=== PATIENT | male | born 1940 | race Caucasian/White ===

== ENCOUNTER 2017-08-27 23:29 | Emergency (ER) | payer MEDICARE, BC ==
[~2017-08-27] VITALS: Ht 190.5 cm; Wt 100.7 kg
[~2017-08-27 23:29] MED LIST: ALFUZOSIN HCL10 MG PO; ASPIR 8181 MG PO; CO Q-1010 MG; DIGOXIN125 MCG PO; DOXAZOSIN MESYLA2 MG PO; FINASTERIDE5 MG PO; FISH OIL 1,0001 EAC3 PO; FLECAINIDE ACE100 MG PO; FLECAINIDE ACET50 MG PO; LISINOPRIL10 MG PO; METFORMIN HCL500 MG PO; METOPROLOL TART25 MG PO; PLAVIX75 MG PO; XARELTO20 MG PO; ZYRTEC10 MG PO
--- OUTSIDE RECORDS SUMMARY | 2017-08-27 23:31 | XMS REPORT ---
Author Author [facility] Address Unknown Phone Unavailable Care Team Providers Care Securities Underwriter Name Role Phone ALFONSO CLEMENTS Unavailable Unavailable Problems This patient has no known problems. Allergies, Adverse Reactions, Alerts This patient has no known allergies or adverse reactions. Medications This patient has no known medications. Results Test Description Test Time Test Comments Text Results Atomic Results Result Comments POCT-GLUCOSE METER 2016-08-25 07:31:00 POC-GLUCOSE METER (BEAKER) (test edgu=6819) 170 mg/dL 70-[address] [facility] [address] [facility] [address] CBC (HEMOGRAM ONLY)2016-08-25 05:18:00* Test Item Value Reference Range Comments WHITE BLOOD CELL COUNT (BEAKER) (test ccra=557) 6.5 K/ L 4.0-10.0 RED BLOOD CELL COUNT (BEAKER) (test tdum=100) 4.00 M/ L 4.20-5.80 HEMOGLOBIN (BEAKER) (test orhn=978) 11.5 GM/DL 13.0-16.8 HEMATOCRIT (BEAKER) (test hmjc=553) 36.8 % 40.0-50.0 MEAN CORPUSCULAR VOLUME (BEAKER) (test xjmz=364) 92.0 fL 82.0-98.0 MEAN CORPUSCULAR HEMOGLOBIN (BEAKER) (test fqas=069) 28.8 pg 27.0-33.0 MEAN CORPUSCULAR HEMOGLOBIN CONC (BEAKER) (test pncy=004) 31.3 GM/DL 32.0- 36.0 RED CELL DISTRIBUTION WIDTH (BEAKER) (test frmv=075) 14.1 % 10.3-14.2 PLATELET COUNT (BEAKER) (test gknb=141) 139 K/CU MM 150-430 MEAN PLATELET VOLUME (BEAKER) (test vkch=048) 6.7 fL 6.5-10.5 NUCLEATED RED BLOOD CELLS (BEAKER) (test muuh=205) 0 /100 WBC 0-0 [id number] 05:13:00* Test Item Value Reference Range Comments BLOOD UREA NITROGEN (BEAKER) (test ebzv=751) 18 mg/dL 7-21 [id number] 05:13:00* Test Item Value Reference Range Comments SODIUM (BEAKER) (test dowl=487) 137 meq/L 136-145 POTASSIUM (BEAKER) (test nskq=571) 4.3 meq/L 3.5-5.1 Specimen slightly hemolyzed CHLORIDE (BEAKER) (test bgdv=922) 107 meq/L 98-107 CO2 (BEAKER) (test sfbn=713) 22 meq/L 22-29 [id number] 05:13:00* Test Item Value Reference Range Comments CREATININE (BEAKER) (test mlyt=390) 1.07 mg/dL 0.57-1.25 Specimen slightly hemolyzed EGFR (BEAKER) (test hpfz=5430) 68 mL/min/1.73 sq m ESTIMATED GFR IS NOT ACCURATE CREATININE CLEARANCE IN PREDICTING GLOMERULAR FILTRATION RATE. ESTIMATED GFR IS NOT APPLICABLE FOR DIALYSIS PATIENTS. POCT-GLUCOSE [id number] 21:36:00* Test Item Value Reference Range Comments POC-GLUCOSE METER (BEAKER) (test abbo=8207) 127 mg/dL 70-110 TESTED AT [place] [id number] POCT-GLUCOSE [id number] 13:44:00* Test Item Value Reference Range Comments POC-GLUCOSE METER (BEAKER) (test gznf=7679) 142 mg/dL 70-110 TESTED AT [place] [id number] 11:45:00* Test Item Value Reference Range Comments ACTIVATED CLOTTING TIME (BEAKER) (test zvnr=524) 137 sec TESTED AT [place] [id number] [id number] 10:38:00* Test Item Value Reference Range Comments ACTIVATED CLOTTING TIME (BEAKER) (test dbyn=434) 358 sec TESTED AT [place] [address] [id number] 10:10:00* Test Item Value Reference Range Comments ACTIVATED CLOTTING TIME (BEAKER) (test jdyo=935) 379 sec TESTED AT [address] [address] [id number] 09:56:00* Test Item Value Reference Range Comments ACTIVATED CLOTTING TIME (BEAKER) (test beph=136) 296 sec TESTED AT [address] [address] [id number] 09:37:00* Test Item Value Reference Range Comments ACTIVATED CLOTTING TIME (BEAKER) (test vkzr=814) 296 sec TESTED AT [place] [address] [id number] 09:10:00* Test Item Value Reference Range Comments POC-CREATININE (BEAKER) (test hldt=7344) 1.1 mg/dL 0.6-1.3 TESTED AT [place] [address] POC-EGFR (BEAKER) (test xggm=1658) 65 mL/min/1.73M2 [id number] 08:34:00* Test Item Value Reference Range Comments PARTIAL THROMBOPLASTIN TIME (BEAKER) (test gbwp=049) 59.3 seconds 22.5-36.0 PROTHROMBIN TIME/[id number] 08:32:00* Test Item Value Reference Range Comments PROTIME (BEAKER) (test goke=435) 21.4 seconds 11.7-14.7 INR (BEAKER) (test mbzq=125) 1.9 <=5.9 RECOMMENDED COUMADIN/WARFARIN INR THERAPY RANGESSTANDARD DOSE: 2.0 - 3.0 Includes: PROPHYLAXIS for venous thrombosis, systemic embolization; TREATMENT for venous thrombosis and/or pulmonary embolus.HIGH RISK: Target INR is 2.5-3.5 for patients with mechanical heart valves.BASIC METABOLIC [id number] 08:26: 00* Test Item Value Reference Range Comments SODIUM (BEAKER) (test bxsr=492) 141 meq/L 136-145 POTASSIUM (BEAKER) (test mbkn=116) 4.7 meq/L 3.5-5.1 CHLORIDE (BEAKER) (test xfsa=172) 106 meq/L 98-107 CO2 (BEAKER) (test bewg=488) 28 meq/L 22-29 BLOOD UREA NITROGEN (BEAKER) (test rxli=865) 21 mg/dL 7-21 CREATININE (BEAKER) (test yggo=211) 1.21 mg/dL 0.57-1.25 GLUCOSE RANDOM (BEAKER) (test hplg=422) 118 mg/dL 70-105 CALCIUM (BEAKER) (test erue=109) 8.8 mg/dL 8.4-10.2 EGFR (BEAKER) (test igpf=4475) 59 mL/min/1.73 sq m ESTIMATED GFR IS NOT ACCURATE CREATININE CLEARANCE IN PREDICTING GLOMERULAR FILTRATION RATE. ESTIMATED GFR IS NOT APPLICABLE FOR DIALYSIS PATIENTS. CBC (HEMOGRAM ONLY)2016-08-22 08:13:00* Test Item Value Reference Range Comments WHITE BLOOD CELL COUNT (BEAKER) (test agev=968) 5.3 K/ L 4.0-10.0 RED BLOOD CELL COUNT (BEAKER) (test dmum=521) 4.50 M/ L 4.20-5.80 HEMOGLOBIN (BEAKER) (test osnt=409) 13.1 GM/DL 13.0-16.8 HEMATOCRIT (BEAKER) (test fkph=910) 41.0 % 40.0-50.0 MEAN CORPUSCULAR VOLUME (BEAKER) (test dpsp=335) 91.1 fL 82.0-98.0 MEAN CORPUSCULAR HEMOGLOBIN (BEAKER) (test wkxl=428) 29.0 pg 27.0-33.0 MEAN CORPUSCULAR HEMOGLOBIN CONC (BEAKER) (test jyte=534) 31.9 GM/DL 32.0- 36.0 RED CELL DISTRIBUTION WIDTH (BEAKER) (test zryg=792) 14.1 % 10.3-14.2 PLATELET COUNT (BEAKER) (test aiem=371) 159 K/CU MM 150-430 MEAN PLATELET VOLUME (BEAKER) (test jpkw=583) 6.2 fL 6.5-10.5 NUCLEATED RED BLOOD CELLS (BEAKER) (test bbxv=439) 0 /100 WBC 0-0 0.00
--- OUTSIDE RECORDS SUMMARY | 2017-08-27 23:31 | XMS REPORT | Clinical Summary ---
Author Author [facility] Address Unknown Phone Unavailable Care Team Providers Care Manager Foreign Name Role Phone PCP Unavailable Allergies Active Allergy Reactions Severity Noted Date Comments Hxkhazn-Qdx-Ixz Reductase High 02/10/2016 Inhibitors Codeine 02/15/2016 HALLUCINATIONS Current Medications Prescription Sig. Disp. Refills Start End Date Status Date finasteride (PROSCAR) 5 Take 5 mg by mouth daily. Active mg tablet rivaroxaban (XARELTO) 20 Take by mouth daily. Active mg Tab tablet cetirizine (ZYRTEC) 10 MG Take 10 mg by mouth Active tablet daily. MAGNESIUM CHLORIDE Take by mouth. Active (SLOW-MAG ORAL) CHOLECALCIFEROL, VITAMIN Take by mouth. Active D3, ORAL coenzyme Q10 100 mg Take 100 mg by mouth Active capsule daily. metFORMIN (GLUCOPHAGE) Take 1 tablet (500 mg 1 tablet 0 02/15/20 Active 500 MG tablet total) by mouth 2 (two) 16 times daily with breakfast and dinner. ALFUZOSIN HCL (ALFUZOSIN Take 10 mg by mouth Active ORAL) daily. metoprolol (LOPRESSOR) 25 Take 25 mg by mouth 2 Active MG tablet (two) times daily. dronedarone (MULTAQ) 400 Take 400 mg by mouth 2 Active mg tablet (two) times daily with breakfast and dinner. loratadine (CLARITIN) 10 Take 10 mg by mouth Active mg tablet daily. clopidogrel (PLAVIX) 75 Take 1 tablet (75 mg 30 tablet 11 02/15/20 02/15/20 mg tablet total) by mouth daily. 16 17 furosemide (LASIX) 40 MG Take 1 tablet (40 mg 2 tablet 0 08/25/ tablet total) by mouth daily for 17 17 2 days. Active Problems Problem Noted Date A-fib ([facility]) 08/24/2016 CAD (coronary artery disease), [place] coronary artery 02/10/2016 DM (diabetes mellitus) type II controlled, neurological manifestation ([facility]) 02/10/2016 BPH (benign prostatic hyperplasia) 02/10/2016 HTN (hypertension) 02/10/2016 PAF (paroxysmal atrial fibrillation) ([facility]) 02/10/2016 Hyperlipemia 02/10/2016 Social History Tobacco Use Types Packs/Day Years Used Date Never Smoker Alcohol Use Drinks/Week oz/Week Comments No Sex Assigned at Date Recorded Not on file Last Filed Vital Signs Not on file Plan of Treatment Not on file Results * RHYTHM STRIP - SCAN (09/29/2016 8:40 AM) Only the most recent of 2 results within the time period is included. * CARDIAC CATH REPORT - SCAN (08/26/2016 12:40 PM) * ARRYTHMIA IMPLANT REPORT - SCAN (08/26/2016 12:40 PM) after 08/26/2016
[2017-08-28] MEDS ORDERED: METOPROLOL TARTRATE 50 MG TAB PO ONE
[2017-08-28 00:21] LABS: BASOPHILS % 0.8 % (0.0-1.0); EOSINOPHILS # (AUTO) 0.1 (0.0-0.4); HEMATOCRIT 41.5 % (38.2-49.6); HEMOGLOBIN 13.6 g/dL (14.0-18.0); LYMPHOCYTES # (AUTO) 1.6 (1.0-3.2); LYMPHOCYTES % 32.7 % (18.0-39.1); MEAN CORPUSCULAR HEMOGLOBIN 28.8 pg (28-32); MEAN CORPUSCULAR HGB CONC 32.8 g/dL (31-35); MEAN CORPUSCULAR VOLUME 87.7 fL (81-99); MONOCYTES # (AUTO) 0.4 (0.2-0.8); MONOCYTES % 7.5 % (4.4-11.3); NEUTROPHILS # (AUTO) 2.9 (2.1-6.9); NEUTROPHILS % 57.8 % (38.7-80.0); PLATELET COUNT 161 x10e3/uL (140-360); RED BLOOD COUNT 4.73 x10e6/uL (4.3-5.7); RED CELL DISTRIBUTION WIDTH 14.3 % (11.7-14.4)
[2017-08-28 00:29] LABS: BILIRUBIN,URINE NEGATIVE (NEGATIVE); CLARITY,URINE CLEAR (CLEAR); COLOR,URINE YELLOW (YELLOW); KETONES,URINE NEGATIVE (NEGATIVE); LEUKOCYTE ESTERASE ,URINE NEGATIVE (NEGATIVE); NITRITE,URINE NEGATIVE (NEGATIVE); PROTEIN,URINE DIPSTICK TRACE (NEGATIVE); URINE UROBILINOGEN 0.2 mg/dL (0.2 - 1)
[2017-08-28 00:31] LABS: EPITHELIAL CELLS,URINE FEW /LPF; RBC,URINE 0-5 /HPF (0-5); WBC,URINE (MAN) 0-5 /HPF (0-5)
[2017-08-28 00:38] LABS: ALANINE AMINOTRANSFERASE 22 IU/L (0-55); ALBUMIN/GLOBULIN RATIO 1.3 (0.8-2.0); ALKALINE PHOSPHATASE 76 IU/L (40-150); ANION GAP 13.5 mmol/L (8-16); BLOOD UREA NITROGEN 19 mg/dL (7-26); BUN/CREATININE RATIO 15 (6-25); CALCIUM 9.6 mg/dL (8.4-10.2); CARBON DIOXIDE 30 mmol/L (22-29); CHLORIDE 103 mmol/L (98-107); CREATINE KINASE 197 IU/L (30-200); CREATININE, SERUM 1.25 mg/dL (0.72-1.25); EST GLOMERULAR FILTRATION RATE 56 ML/MIN (60-); GLUCOSE 126 mg/dL (74-118); POTASSIUM 4.5 mmol/L (3.5-5.1); SODIUM 142 mmol/L (136-145)
--- NOTE | 2017-08-28 00:46 | Diagnostic Imaging Report ---
CHEST 2 VIEWS, Technique: CHEST 2 VIEWS Comparison: 06/24/2016 Clinical history: Atrial fibrillation DISCUSSION: Stable left chest wall dual-lead pacer. Scattered metallic fragments overlie the chest. Stable cardiomegaly with tortuous or ectatic aorta. No consolidation or edema. No effusion or pneumothorax. IMPRESSION: No acute abnormality Signed by: Dr Jodee Koroma MD on 08/28/2017 12:42 AM
[2017-08-28 03:22] LABS: CREATINE KINASE 169 IU/L (30-200)
[2017-08-28 04:17] VITALS: BP 158/88
== END 2017-08-28 04:30 | disposition home or self-care (01) ==
LOC: ER 23:29
DX: R00.2 Palpitations (principal); I48.0 Paroxysmal atrial fibrillation
CPT/HCPCS: 36415; 71046; 80053; 81001; 82550; 82553; 84484; 85025; 93005; 99284

== ENCOUNTER → 2017-11-22 | Outpatient (CLI) | payer MEDICARE, BC ==
[~2017-11-22] MED LIST changes: +REGADENOSON 0.4 MG/5 ML SYR IV ONE
--- NOTE | 2017-11-22 15:55 | Cardiology Report ---
DATE OF STUDY: November 22, 2017 NUCLEAR GATED MYOCARDIAL PERFUSION SCAN Nuclear gated myocardial perfusion scan performed as per protocol at nuclear medicine lab at [facility]. The stress test is supervised by Dr. Rajinder Gross. I read only the nuclear part of the stress test. Lexiscan injected 0.4 mg intravenously as stress agent. Myoview injected 10 mCi for resting protocol, 27 mCi for stress protocol. IMPRESSION: Normal gated myocardial perfusion scan. No evidence of ischemia or scar noted. Left ventricular ejection fraction is 45% to 50%. Normal study. Thank you, Dr. Rajinder Gross, for this nuclear medicine interpretation consultation. Job#: [id number]
== END ==
LOC: NM 10:13
PROVIDERS: ATTEND Internal Medicine Cardiovascular Disease
DX: I25.10 Atherosclerotic heart disease of native coronary artery without angina pectoris (principal); R94.31 Abnormal electrocardiogram [ECG] [EKG]
CPT/HCPCS: 78452; 93017; A9502

== ENCOUNTER → 2017-12-04 | Day surgery (SDC) | payer MEDICARE, BC ==
[2017-11-30 11:58] LABS: BASOPHILS # (AUTO) 0.1 (0.0-0.1); BASOPHILS % 0.9 % (0.0-1.0); EOSINOPHILS % 0.6 % (0.0-6.0); HEMATOCRIT 37.6 % (38.2-49.6); HEMOGLOBIN 12.1 g/dL (14.0-18.0); LYMPHOCYTES # (AUTO) 1.3 (1.0-3.2); LYMPHOCYTES % 19.9 % (18.0-39.1); MEAN CORPUSCULAR HEMOGLOBIN 27.9 pg (28-32); MEAN CORPUSCULAR HGB CONC 32.2 g/dL (31-35); MEAN CORPUSCULAR VOLUME 86.6 fL (81-99); MONOCYTES # (AUTO) 0.5 (0.2-0.8); MONOCYTES % 7.5 % (4.4-11.3); NEUTROPHILS # (AUTO) 4.6 (2.1-6.9); NEUTROPHILS % 70.5 % (38.7-80.0); PLATELET COUNT 171 x10e3/uL (140-360); RED BLOOD COUNT 4.34 x10e6/uL (4.3-5.7)
[2017-11-30 12:22] LABS: INR 1.94; PROTHROMBIN TIME 20.8 seconds (11.9-14.5)
[2017-11-30 12:23] LABS: PARTIAL THROMBOPLASTIN TIME 51.4 seconds (23.8-35.5)
[2017-11-30 12:31] LABS: ANION GAP 12.6 mmol/L (8-16); CALCIUM 9.3 mg/dL (8.4-10.2); CHOL/HDL RATIO 3.9 (3.9-4.7); CREATININE, SERUM 1.37 mg/dL (0.72-1.25); POTASSIUM 4.6 mmol/L (3.5-5.1)
[2017-12-04] VITALS (12 sets, daily range): BP systolic 130–178; BP diastolic 89–119
[~2017-12-04] VITALS: Ht 190.5 cm; Wt 99.8 kg
[~2017-12-04] MED LIST changes: +FENTANYL CITRATE/PF 100MCG/2 ML INJ ONE; +HEPARIN SOD/SOD CHLORIDE 2,000 ML ONE; +IOPAMIDOL 370 MG/ML 200 ML INFUS..BTL INJ ONE; +LABETALOL HCL 20 ML ONE; +LIDOCAINE HCL 2% LOCAL 20 ML VIAL ONE; +MIDAZOLAM HCL 2 MG/2 ML VIAL ONE; -REGADENOSON 0.4 MG/5 ML SYR IV ONE; +SODIUM CHLORIDE 0.9% 1000ML 1,000 ML ONE
[2017-12-04 10:31] LABS: INR 1.27; PROTHROMBIN TIME 14.9 seconds (11.9-14.5)
[2017-12-04 10:35] LABS: ANION GAP 13.5 mmol/L (8-16); CALCIUM 9.3 mg/dL (8.4-10.2); CREATININE, SERUM 1.31 mg/dL (0.72-1.25); POTASSIUM 4.5 mmol/L (3.5-5.1)
--- NOTE | 2017-12-04 18:54 | Operative Report ---
DATE OF PROCEDURE: December 04, 2017 PREOPERATIVE DIAGNOSES 1. Coronary artery disease with previous stenting of the left anterior descending branch and abnormal nuclear stress test. 2. Chronic atrial fibrillation considered for redo ablation. 3. Chronic kidney disease. 4. Diabetes mellitus. 5. Hypertensive cardiovascular disease. PROCEDURES 1. Cardiac catheterization including selective coronary angiography and left ventricular angiogram. 2. Left groin angiogram and closure of the left femoral artery with Angio-Seal, model Evolution. ANESTHESIA: Local anesthetic to the left groin area and moderate sedation with 1 mg of Versed and 25 mcg of fentanyl on 2 occasions. DESCRIPTION OF PROCEDURE: After usual prepping and draping, the left inguinal area was infiltrated with local lidocaine. Under modified Seldinger technique, a 6-Montenegrin arterial sheath was placed in the left femoral artery and selective coronary angiography was performed by using modified Андрей catheters. A 6-Montenegrin angled pigtail catheter was utilized for recording of hemodynamics and left ventricular angiogram in the 30 degree HECK projection. After completion and review of the diagnostic cardiac catheterization and removal of the pigtail catheter, angiogram of the left inguinal area was performed in the left anterior oblique position prior to closure of the left femoral artery with Angio-Seal. At the beginning of the procedure, the patient also had puncture of the left femoral vein and a guidewire was inserted and left in place throughout the procedure. This was then removed the end of the procedure and manual pressure was applied until hemostasis was achieved. Dressing was then applied and the patient returned to the observation area in stable condition. There were no complications. There was no blood loss. The procedure was well tolerated. No intervention was performed. This information was related to the patient and the patient's family. He will resume his metformin and Xarelto on the 05 of December. However, because of the recent observation of some mild chronic kidney disease stage 2B, his Xarelto will be reduced from 20 mg to 15 mg from now on. The patient is scheduled for SUZETTE and redo ablation of his atrial fibrillation days at [facility] by Dr. Brock. Job#: [id number]
== END | disposition home or self-care (01) ==
LOC: CATH LAB 10:01
PROVIDERS: ATTEND Internal Medicine Cardiovascular Disease
DX: I25.10 Atherosclerotic heart disease of native coronary artery without angina pectoris (principal); Z95.5 Presence of coronary angioplasty implant and graft; R94.39 Abnormal result of other cardiovascular function study; I48.2 Chronic atrial fibrillation; E11.22 Type 2 diabetes mellitus with diabetic chronic kidney disease; N40.0 Benign prostatic hyperplasia without lower urinary tract symptoms; I12.9 Hypertensive chronic kidney disease with stage 1 through stage 4 chronic kidney disease, or unspecified chronic kidney disease; N18.2 Chronic kidney disease, stage 2 (mild); Z88.6 Allergy status to analgesic agent; Z88.8 Allergy status to other drugs, medicaments and biological substances; Z01.812 Encounter for preprocedural laboratory examination; Z79.84 Long term (current) use of oral hypoglycemic drugs; Z79.02 Long term (current) use of antithrombotics/antiplatelets
CPT/HCPCS: 36415 ×2; 80048 ×2; 80061; 85025; 85610 ×2; 85730; 93458; J2001; J2250; J3490; J7030; Q9967

== ENCOUNTER 2017-12-17 07:24 | Emergency (ER) | payer MEDICARE, BC ==
[~2017-12-17] VITALS: Ht 190.5 cm; Wt 99.8 kg
[~2017-12-17 07:24] MED LIST changes: -FENTANYL CITRATE/PF 100MCG/2 ML INJ ONE; -HEPARIN SOD/SOD CHLORIDE 2,000 ML ONE; -IOPAMIDOL 370 MG/ML 200 ML INFUS..BTL INJ ONE; -LABETALOL HCL 20 ML ONE; -LIDOCAINE HCL 2% LOCAL 20 ML VIAL ONE; -MIDAZOLAM HCL 2 MG/2 ML VIAL ONE; -SODIUM CHLORIDE 0.9% 1000ML 1,000 ML ONE
[2017-12-17 07:54] LABS: BASOPHILS % 0.5 % (0.0-1.0); EOSINOPHILS % 0.5 % (0.0-6.0); HEMATOCRIT 33.7 % (38.2-49.6); HEMOGLOBIN 10.8 g/dL (14.0-18.0); LYMPHOCYTES # (AUTO) 0.5 (1.0-3.2); LYMPHOCYTES % 7.9 % (18.0-39.1); MEAN CORPUSCULAR HEMOGLOBIN 27.5 pg (28-32); MEAN CORPUSCULAR VOLUME 85.8 fL (81-99); MONOCYTES # (AUTO) 0.4 (0.2-0.8); MONOCYTES % 6.9 % (4.4-11.3); NEUTROPHILS # (AUTO) 5.2 (2.1-6.9); NEUTROPHILS % 83.7 % (38.7-80.0); PLATELET COUNT 161 x10e3/uL (140-360); RED BLOOD COUNT 3.93 x10e6/uL (4.3-5.7); RED CELL DISTRIBUTION WIDTH 14.5 % (11.7-14.4)
[2017-12-17] MEDS ORDERED: CLONIDINE HCL0.1 MG PO (07:57)
[2017-12-17] MEDS ORDERED: MULTAQ400 MG PO (07:57)
[2017-12-17] MEDS ORDERED: CITALOPRAM HBR20 MG PO (07:57)
[2017-12-17] MEDS ORDERED: CLONAZEPAM0.5 M1 PO (07:57)
[2017-12-17] MEDS ORDERED: XARELTO20 MG PO (07:57)
[2017-12-17] MEDS ORDERED: LISINOPRIL10 MG PO (07:57)
[2017-12-17] MEDS ORDERED: DILTIAZEM 24HR180 MG PEG (07:57)
[2017-12-17] MEDS ORDERED: ISOSORBIDE MONO20 MG PO (07:57)
[2017-12-17] MEDS ORDERED: CLONIDINE HCL 0.1 MG TAB PO ONE (08:00)
[2017-12-17 08:07] LABS: ALANINE AMINOTRANSFERASE 38 IU/L (0-55); ALBUMIN 3.8 g/dL (3.5-5.0); ALBUMIN/GLOBULIN RATIO 1.5 (0.8-2.0); ALKALINE PHOSPHATASE 63 IU/L (40-150); AMYLASE 99 U/L (25-125); ANION GAP 12.5 mmol/L (8-16); BLOOD UREA NITROGEN 15 mg/dL (7-26); BUN/CREATININE RATIO 14 (6-25); CALCIUM 9.1 mg/dL (8.4-10.2); CARBON DIOXIDE 28 mmol/L (22-29); CHLORIDE 104 mmol/L (98-107); CREATINE KINASE 557 IU/L (30-200); CREATININE, SERUM 1.11 mg/dL (0.72-1.25); EST GLOMERULAR FILTRATION RATE > 60 ML/MIN (60-); GLUCOSE 122 mg/dL (74-118); LIPASE 109 U/L (8-78); POTASSIUM 4.5 mmol/L (3.5-5.1); SODIUM 140 mmol/L (136-145)
[2017-12-17 08:17] LABS: BILIRUBIN,URINE NEGATIVE (NEGATIVE); CLARITY,URINE CLEAR (CLEAR); COLOR,URINE YELLOW (YELLOW); KETONES,URINE NEGATIVE (NEGATIVE); LEUKOCYTE ESTERASE ,URINE NEGATIVE (NEGATIVE); NITRITE,URINE NEGATIVE (NEGATIVE); PROTEIN,URINE DIPSTICK NEGATIVE (NEGATIVE); URINE UROBILINOGEN 0.2 mg/dL (0.2 - 1)
[2017-12-17 08:18] LABS: RBC,URINE 0-5 /HPF (0-5); WBC,URINE (MAN) 0-5 /HPF (0-5)
[2017-12-17 08:19] LABS: BACTERIA,URINE RARE /HPF; EPITHELIAL CELLS,URINE RARE /LPF
--- NOTE | 2017-12-17 08:38 | Diagnostic Imaging Report ---
EXAMINATION: CHEST 2 VIEWS INDICATION: \S\epigastric pain \S\[id number] \S\0801 COMPARISON: 08/28/2017 FINDINGS: PA and lateral views TUBES and LINES: Dual-lead left chest wall cardiac device is stable. LUNGS: Lungs are well inflated. Lungs are clear. There is no evidence of pneumonia or pulmonary edema. PLEURA: No pleural effusion or pneumothorax. HEART AND MEDIASTINUM: The cardiomediastinal silhouette is unremarkable. BONES AND SOFT TISSUES: No acute osseous lesion. Again scattered metallic fragments. UPPER ABDOMEN: No free air under the diaphragm. IMPRESSION: No acute thoracic abnormality. Signed by: Dr. Jeet Herrera MD on 12/17/2017 8:35 AM
[2017-12-17] MEDS ORDERED: DONNATAL/LIDOCAINE/MAALOX 30 ML SUSP PO NR (09:30)
[2017-12-17] MEDS ORDERED: LIDOCAINE VISC 2% SOLN 15 ML UDC ONE (09:41)
[2017-12-17] MEDS ORDERED: BELLADONNA ALK/PHENOBARBITAL 5 ML UDC ONE (09:42)
[2017-12-17] MEDS ORDERED: MAGNESIUM/ALUMINUM/SIMETHICONE 30 ML UDC ONE (09:42)
[2017-12-17] MEDS ORDERED: HYDRALAZINE HCL 20 MG/ML VIAL IV NR (10:25)
[2017-12-17 11:26] VITALS: BP 162/83
== END 2017-12-17 11:53 | disposition home or self-care (01) ==
LOC: ER 07:24
DX: R10.13 Epigastric pain (principal); I10 Essential (primary) hypertension
CPT/HCPCS: 36415; 71046; 80053; 81001; 82150; 82550; 82553; 83690; 84484; 85025; 99284; J0360

== ENCOUNTER → 2018-01-23 | Outpatient (CLI) | payer MEDICARE, BC ==
[~2018-01-23] MED LIST changes: +CITALOPRAM HBR20 MG PO; +CLONAZEPAM0.5 M1 PO; +CLONIDINE HCL0.1 MG PO; +DILTIAZEM 24HR180 MG PEG; +ISOSORBIDE MONO20 MG PO; +MULTAQ400 MG PO
== END ==
LOC: RAD 12:45
PROVIDERS: ATTEND Internal Medicine Cardiovascular Disease
DX: I48.2 Chronic atrial fibrillation (principal); R94.31 Abnormal electrocardiogram [ECG] [EKG]
CPT/HCPCS: 93306

== ENCOUNTER 2018-01-27 17:52 | Emergency (ER) | payer MEDICARE, BC ==
[~2018-01-27] VITALS: Ht 190.5 cm; Wt 99.8 kg
[~2018-01-27 17:52] MED LIST changes: -DILTIAZEM 24HR180 MG PEG; +DILTIAZEM 24HR180 MG PO
[2018-01-27 18:47] LABS: BASOPHILS % 0.5 % (0.0-1.0); EOSINOPHILS % 0.4 % (0.0-6.0); HEMATOCRIT 36.6 % (38.2-49.6); HEMOGLOBIN 11.8 g/dL (14.0-18.0); LYMPHOCYTES # (AUTO) 0.9 (1.0-3.2); LYMPHOCYTES % 15.1 % (18.0-39.1); MEAN CORPUSCULAR HEMOGLOBIN 27.4 pg (28-32); MEAN CORPUSCULAR HGB CONC 32.2 g/dL (31-35); MEAN CORPUSCULAR VOLUME 84.9 fL (81-99); MONOCYTES # (AUTO) 0.5 (0.2-0.8); MONOCYTES % 8.1 % (4.4-11.3); NEUTROPHILS # (AUTO) 4.3 (2.1-6.9); NEUTROPHILS % 75.5 % (38.7-80.0); PLATELET COUNT 222 x10e3/uL (140-360); RED BLOOD COUNT 4.31 x10e6/uL (4.3-5.7); RED CELL DISTRIBUTION WIDTH 15.3 % (11.7-14.4)
[2018-01-27 19:01] LABS: ALANINE AMINOTRANSFERASE 38 IU/L (0-55); ALBUMIN 3.8 g/dL (3.5-5.0); ALBUMIN/GLOBULIN RATIO 1.4 (0.8-2.0); ALKALINE PHOSPHATASE 63 IU/L (40-150); ANION GAP 15.6 mmol/L (8-16); BLOOD UREA NITROGEN 16 mg/dL (7-26); BUN/CREATININE RATIO 12 (6-25); CALCIUM 8.9 mg/dL (8.4-10.2); CARBON DIOXIDE 25 mmol/L (22-29); CHLORIDE 100 mmol/L (98-107); CREATINE KINASE 159 IU/L (30-200); CREATININE, SERUM 1.32 mg/dL (0.72-1.25); EST GLOMERULAR FILTRATION RATE 53 ML/MIN (60-); GLUCOSE 117 mg/dL (74-118); LIPASE 147 U/L (8-78); POTASSIUM 4.6 mmol/L (3.5-5.1); SODIUM 136 mmol/L (136-145)
[2018-01-27] MEDS ORDERED: SODIUM CHLORIDE 0.9% 500ML 500 ML IV ONE (20:15)
[2018-01-27 20:18] LABS: BILIRUBIN,URINE NEGATIVE (NEGATIVE); CLARITY,URINE CLEAR (CLEAR); COLOR,URINE YELLOW (YELLOW); KETONES,URINE NEGATIVE (NEGATIVE); LEUKOCYTE ESTERASE ,URINE NEGATIVE (NEGATIVE); NITRITE,URINE NEGATIVE (NEGATIVE); PROTEIN,URINE DIPSTICK NEGATIVE (NEGATIVE); URINE UROBILINOGEN 0.2 mg/dL (0.2 - 1)
[2018-01-27 20:41] LABS: BACTERIA,URINE RARE /HPF; EPITHELIAL CELLS,URINE RARE /LPF
[2018-01-27] MEDS ORDERED: IOPAMIDOL 370 MG/ML 200 ML INFUS..BTL INJ ONE (20:44)
[2018-01-27] MEDS ORDERED: SODIUM CHLORIDE 0.9% 50ML 50 ML ONE (20:44)
--- NOTE | 2018-01-27 21:44 | Diagnostic Imaging Report ---
EXAM: US GALLBLADDER DATE: 01/27/2018 12:00 AM INDICATION: \S\abdominal pain, history of cholelithiasis \S\[id number] \S\0255, COMPARISON: None TECHNIQUE: Transverse and longitudinal swain scale and color doppler sonographic images of the upper abdomen were obtained. FINDINGS: LIVER 14.1 cm in the right midclavicular line. Increased echogenicity, normal contour, no masses. GALLBLADDER Cholelithiasis without wall-thickening or pericholecystic fluid. Negative sonographic Shelton's sign. BILE DUCTS No intra nor extra-hepatic biliary dilation. Common bile duct measures 0.5 cm PANCREAS: Not well visualized due to overlying bowel gas RIGHT KIDNEY: 11.3 cm Echogenicity: Normal Collecting System: No hydronephrosis Stones: None Cyst/Mass: 2 right renal cysts are seen measuring 1.1 x 1.1 x 1.2 cm and 1.1 x 0.9 1.3 cm. Hypoechoic area in the right mid kidney measures 3.3 x 2.6 x 2.6 cm. VESSELS: Aorta: Poorly visualized due to overlying bowel gas Inferior Vena Cava: Poorly visualized due to bowel gas Main Portal Vein: hepatopetal flow. FREE FLUID: None IMPRESSION: 1. Hepatic steatosis. 2. Cholelithiasis without evidence of acute cholecystitis. 3. Hypoechoic area in the right mid kidney, favored to reflect a lobulation or column of Michele. Consider nonemergent follow up CT without and with IV contrast (renal mass protocol) to exclude renal mass/lesion. Signed by: Dr Jodee Koroma MD on 01/27/2018 9:42 PM
[2018-01-27] MEDS ORDERED: SODIUM CHLORIDE 0.9% 250ML 250 ML IV ONE (22:00)
--- NOTE | 2018-01-27 22:29 | Diagnostic Imaging Report ---
EXAM: CT ABDOMEN/PELVIS W DATE: 01/27/2018 6:30 PM INDICATION: Abdominal pain COMPARISON: None TECHNIQUE: The abdomen and pelvis were scanned using a multidetector helical scanner. Coronal and sagittal reformations were obtained. CT low dose techniques were utilized, as applicable. IV Contrast: 100 ml Isovue 300/370 FINDINGS: LOWER THORAX: No consolidations. Partially imaged cardiomegaly pacing leads. LIVER/BILIARY: No masses. No ductal dilatation. GALLBLADDER: Cholelithiasis. No pericholecystic fluid. SPLEEN: Unremarkable PANCREAS: Unremarkable ADRENALS: No nodules KIDNEYS: Subcentimeter too small to characterize bilateral renal hypodensities, but likely cysts. No hydronephrosis. GI TRACT: No wall thickening or evidence of obstruction. No evidence of appendicitis. Diverticulosis. VESSELS: Mild atherosclerotic changes PERITONEUM/RETROPERITONEUM: No free air or fluid LYMPH NODES: No lymphadenopathy REPRODUCTIVE ORGANS/BLADDER: Prostatomegaly, 6 cm. Mild circumferential bladder wall thickening likely related to chronic outlet obstruction. SOFT TISSUES: Small bilateral fat-containing inguinal hernias. Punctate radiopaque densities are seen within the anterior abdominal wall soft tissues. BONES: No suspicious bone lesions. IMPRESSION: 1. No acute abnormality in the abdomen or pelvis. 2. Cholelithiasis. Signed by: Dr Jodee Koroma MD on 01/27/2018 10:27 PM
[2018-01-27] MEDS ORDERED: METOPROLOL SUCC50 MG PO (23:15)
== END 2018-01-27 23:51 | disposition home or self-care (01) ==
LOC: ER 17:52
DX: R10.33 Periumbilical pain (principal); R11.2 Nausea with vomiting, unspecified; K80.20 Calculus of gallbladder without cholecystitis without obstruction; I10 Essential (primary) hypertension; E11.9 Type 2 diabetes mellitus without complications; I25.10 Atherosclerotic heart disease of native coronary artery without angina pectoris
CPT/HCPCS: 36415; 74177; 76705; 80053; 81001; 82550; 82553; 83605; 83690; 84484; 85025; 87040; 93005; 99284; J7040; J7050; Q9967

== ENCOUNTER 2018-01-29 22:58 | Inpatient (IN) | payer MEDICARE, BC ==
[~2018-01-29] VITALS: Ht 193 cm; Wt 102.2 kg
[~2018-01-29 22:58] MED LIST changes: +METOPROLOL SUCC50 MG PO
[2018-01-29] MEDS ORDERED: MORPHINE SULFATE 2 MG/ML SYR IV STA (23:03)
[2018-01-29] MEDS ORDERED: ONDANSETRON HCL INJ 2 MG/ML VIAL IV STA (23:03)
[2018-01-29] MEDS ORDERED: SODIUM CHLORIDE 0.9% 1000ML 1,000 ML IV ONE (23:15)
[2018-01-29] MEDS ORDERED: DICYCLOMINE HCL 20 MG/2 ML VIAL IM ONE (23:15)
[2018-01-29 23:54] LABS: BASOPHILS % 0.6 % (0.0-1.0); EOSINOPHILS % 0.2 % (0.0-6.0); HEMATOCRIT 37.6 % (38.2-49.6); LYMPHOCYTES # (AUTO) 0.8 (1.0-3.2); LYMPHOCYTES % 11.8 % (18.0-39.1); MEAN CORPUSCULAR HEMOGLOBIN 27.3 pg (28-32); MEAN CORPUSCULAR HGB CONC 31.9 g/dL (31-35); MEAN CORPUSCULAR VOLUME 85.6 fL (81-99); MONOCYTES # (AUTO) 0.5 (0.2-0.8); MONOCYTES % 7.7 % (4.4-11.3); NEUTROPHILS # (AUTO) 5.2 (2.1-6.9); NEUTROPHILS % 79.2 % (38.7-80.0); PLATELET COUNT 196 x10e3/uL (140-360); RED BLOOD COUNT 4.39 x10e6/uL (4.3-5.7); RED CELL DISTRIBUTION WIDTH 15.1 % (11.7-14.4)
[2018-01-30 00:06] LABS: PROTHROMBIN TIME 24.2 seconds (11.9-14.5)
[2018-01-30 00:16] LABS: ALBUMIN 4.2 g/dL (3.5-5.0); ALBUMIN/GLOBULIN RATIO 1.8 (0.8-2.0); ANION GAP 16.3 mmol/L (8-16); CALCIUM 9.3 mg/dL (8.4-10.2); CREATININE, SERUM 1.4 mg/dL (0.72-1.25); POTASSIUM 4.3 mmol/L (3.5-5.1)
[2018-01-30 00:37] LABS: CREATINE KINASE 270 IU/L (30-200)
[2018-01-30] MEDS ORDERED: DEXTROSE 50% SYRINGE 50 ML IV PRN (01:15)
[2018-01-30] MEDS ORDERED: NON-FORMULARY MEDICATION (Clonazepam 0.5 MG) PO PRN (01:15)
[2018-01-30] MEDS ORDERED: MORPHINE SULFATE 2 MG/ML SYR IV PRN (01:15)
[2018-01-30] MEDS ORDERED: CEFOXITIN 1GM/ DEXTROSE 50ML ML IV SCH (01:15)
[2018-01-30] MEDS ORDERED: METRONIDAZOLE 500MG/NS 100ML 100 ML IV SCH (01:15)
[2018-01-30] MEDS ORDERED: DILTIAZEM HCL 180 MG CAP ER PO PRN ×2 (01:15→14:45)
[2018-01-30] MEDS ORDERED: LISINOPRIL 10 MG TAB PO PRN (01:15)
[2018-01-30] MEDS: SODIUM CHLORIDE 0.9% 1000ML 1,000 ML IV SCH ×2 (01:57→14:55)
[2018-01-30] MEDS: CLONIDINE HCL 0.1 MG TAB PO PRN (02:00)
[2018-01-30 02:15] VITALS: BP 150/114
[2018-01-30] MEDS: ONDANSETRON HCL INJ 2 MG/ML VIAL IV PRN ×3 (02:50→14:45)
[2018-01-30] MEDS ORDERED: CEFOXITIN SOD 1 GM VIAL ONE (03:22)
[2018-01-30] MEDS ORDERED: SODIUM CHLORIDE 0.9% 50ML 50 ML ONE (03:37)
[2018-01-30 04:00] VITALS: BP 170/113
[2018-01-30 07:46] VITALS: BP 182/102
[2018-01-30] MEDS: INSULIN REGULAR, HUMAN 100 UNIT/1 ML 3ML VIAL SQ SCH ×4 (08:00→20:53)
[2018-01-30] MEDS: HYDROMORPHONE 2MG/ML 2 MG/ML ML IV PRN (08:05)
[2018-01-30] MEDS: METRONIDAZOLE 500MG/NS 100ML 100 ML IV SCH ×3 (08:05→20:52)
[2018-01-30] MEDS: HYDRALAZINE HCL 20 MG/ML VIAL IV PRN (08:05)
[2018-01-30 08:37] LABS: CREATINE KINASE MB 4.4 ng/mL (0-5.0)
--- NOTE | 2018-01-30 08:39 | Consultation ---
DATE OF CONSULTATION: January 30, 2018 UROLOGY CONSULTATION CHIEF UROLOGIC COMPLAINT/REASON FOR CONSULTATION: BPH. HISTORY OF PRESENT ILLNESS: Mr. Elvis Medellin is a 77-year-old male patient of Dr. Rene Riley. He has seen multiple urologists in the past including Janes Obrien. He has had a longstanding history of elevated PSA, status post multiple prostate biopsies and known BPH. He has mostly irritated systems consisting of frequency and nocturia 2 to 3 times per night. He has occasional incomplete emptying. Denied urinary incontinence. Denied dysuria. Denied hematuria. He was admitted to the hospital for right upper quadrant abdominal pain, sharp, severe for 5 days with a history known of gallstones. PAST MEDICAL HISTORY: Hypertension, atrial fibrillation, status post ablation, diabetes mellitus, status post exploratory laparotomy for abdominal pain/tumor/small bowel obstruction, status post PCI, status post pacemaker AICD, status post prostate biopsy. MEDICATIONS: Plavix and Xarelto. ALLERGIES: NKDA. SOCIAL HISTORY: Denied smoking. No drinking. FAMILY HISTORY: No urologic stones or malignancies. REVIEW OF SYSTEMS: Noncontributory other than problems mentioned above for 12-point systems. EXAMINATION GENERAL: Elderly male, in no acute distress. VITALS: Temperature 96.3, pulse 93, respirations 20, blood pressure 170/103. HEENT: Sclerae anicteric. NECK: Supple. BACK: Without costovertebral angle tenderness bilaterally. ABDOMEN: Soft, nontender, nondistended. No palpable mass. No palpable hernias. No palpable adenopathy. : Normal external genitalia. EXTREMITIES: Without edema. SKIN: Intact. Normal color. PERTINENT LABORATORY DATA: CT scan revealing gallstones, BPH. CBC is normal except for hemoglobin of 12. Chem-16 was normal except for a sodium of 132, chloride of 96. A PTT of 24, PTT of 64, and INR of 2.0. IMPRESSIONS 1. Elevated prostate specific antigen. 2. BPH with obstructive symptoms. 3. Coagulopathy, medically induced. 4. Malignant hypertension. 5. Right upper quadrant abdominal pain, likely from gallstones. 6. Nocturia and frequency. PLAN: Urinary ray, the patient has multiple urologists and wishes to continue care with Dr. Riley . Neurologically, he appears to be voiding well. As the patient is coagulopathic, maybe induced by Plavix and Xarelto. Will not place a Leos catheter unless the patient is in natali retention, we are going to deal, or needs bladder drainage. The patient's elevated PSA is biopsies and we are following this. I agree with this plan of management and the patient has mild hypertension. This could be secondary to pain. Will defer to primary service. Await Dr. Dewey's evaluation of gallstones. Thank you for allowing us to participate in the care of your patient. Will be happy to follow along with you as needed. Job#: [id number] CQ cc:MD ANGELIKA LOZANO MD DR RICHARD GOLDFARB
[2018-01-30] MEDS ORDERED: METOPROLOL SUCCINATE 50 MG TAB XL PO SCH ×2 (09:00→21:00)
[2018-01-30] MEDS: HEPARIN SOD (PORCINE) 5,000 UNIT/ML VIAL SC SCH ×2 (10:00→21:18)
[2018-01-30 11:17] VITALS: BP 137/87
[2018-01-30] MEDS: CEFOXITIN SOD 1 GM VIAL IV SCH ×2 (13:03→20:52)
[2018-01-30] MEDS ORDERED: HYDROCODONE/APAP 5MG-325MG TAB PO PRN (14:30)
[2018-01-30] MEDS ORDERED: CLONAZEPAM 0.5 MG TAB PO PRN (14:45)
[2018-01-30 15:17] LABS: BILIRUBIN,URINE NEGATIVE (NEGATIVE); CLARITY,URINE CLEAR (CLEAR); COLOR,URINE YELLOW (YELLOW); KETONES,URINE NEGATIVE (NEGATIVE); LEUKOCYTE ESTERASE ,URINE NEGATIVE (NEGATIVE); NITRITE,URINE NEGATIVE (NEGATIVE); PROTEIN,URINE DIPSTICK NEGATIVE (NEGATIVE); URINE UROBILINOGEN 0.2 mg/dL (0.2 - 1)
[2018-01-30 15:20] VITALS: BP 158/92
[2018-01-30 15:27] LABS: EPITHELIAL CELLS,URINE RARE /LPF
[2018-01-30 16:47] LABS: CREATINE KINASE MB 3.8 ng/mL (0-5.0)
[2018-01-30] MEDS: HYDROCODONE/APAP 5MG-325MG TAB PO PRN ×2 (18:44→23:40)
[2018-01-30 20:00] VITALS: BP 156/97
[2018-01-30] MEDS: FINASTERIDE 5 MG TAB PO SCH (20:52)
[2018-01-31] VITALS (8 sets, daily range): BP systolic 153–184; BP diastolic 91–118
--- NOTE | 2018-01-31 01:43 | Consultation ---
DATE OF CONSULTATION: January 30, 2018 Patient was admitted on the [address] Dodge and seen in consultation on the 30 of January. HISTORY: This 77-year-old patient was kindly referred by Dr. Dodge for cardiovascular evaluation and clearance for surgery. The patient stated that he was seen in the emergency room about 3 days ago complaining of abdominal pain. He was found to have gallstones, and after he was feeling better within 6 or 7 hours under observation in the emergency room, the patient was discharged; however, he returned with worsening of the pain, which he described more in the center of his stomach, but also more on the right upper quadrant area. The patient also has been suffering from nausea, he denied any vomitus, and he denied any hematemesis or melena. The patient is now considered for cholecystectomy by Dr. Matheus Dewey. He stated that he has not taken any Plavix since the 28 of January and his Xarelto also has been discontinued, and at the present time the patient has been given heparin 5000 units subcu every 12 hours because of chronic atrial fibrillation while awaiting the operation. PAST HISTORY: Reveals that he has coronary artery disease, coronary stenting of the LAD. He also has hypertensive cardiovascular disease and chronic atrial fibrillation. The patient had redo ablation procedure which, however, was only successful for about 2 weeks and the patient returned to his chronic atrial fibrillation with at times rapid ventricular rate requiring high dose of metoprolol for control. The patient also has permanent pacemaker because of imer-tachy arrhythmia. The patient also suffers from diabetic neuropathy, hyperlipidemia, allergies, benign prostatic hypertrophy. He also had TIAs, intentional tremor, degenerative joint disease, and chronic kidney disease. ALLERGIES: PATIENT COULD NOT TOLERATE LOVASTATIN, AMLODIPINE, AND CODEINE. SOCIAL HISTORY: Negative. FAMILY HISTORY: Noncontributory. REVIEW OF SYSTEMS: The remainder of systems reviewed, revealed patient denies any headache or sore throat. Patient denies any cough or sputum production. The patient denies any leg swelling. He is able to move all extremities normally. PHYSICAL EXAMINATION: VITAL SIGNS: Reveals a blood pressure 130/60. NECK: Carotid pulses are present. CHEST: Clear to auscultation. CARDIOVASCULAR SYSTEM: There is a normal apical impulse. The rhythm is irregularly irregular with rate of 96 per minute. There is no S3. There is no rub. ABDOMEN: Soft. There is tenderness in the upper abdomen, more on the right side. There is no rebound, there is no guarding. EXTREMITIES: Pulses are present. There is no peripheral edema. NEUROLOGIC: Does not reveal any motor defects. IMPRESSION: 1. Hypertensive and coronary atherosclerotic heart disease with history of coronary stenting. 2. Sick sinus syndrome with atrial fibrillation and unsuccessful redo ablation procedure. 3. Permanent pacemaker. 4. Chronic kidney disease. 5. Diabetes mellitus. I agree that the patient should undergo a cholecystectomy and we will monitor patient's cardiac rhythm and anticoagulation to get him prepared for the surgical procedure. Thank you very much for letting me see this very nice patient. Job#: [id number]
[2018-01-31] MEDS: METRONIDAZOLE 500MG/NS 100ML 100 ML IV SCH ×4 (03:20→19:39)
[2018-01-31] MEDS: HYDROCODONE/APAP 5MG-325MG TAB PO PRN ×3 (03:43→12:10)
[2018-01-31] MEDS: CLONIDINE HCL 0.1 MG TAB PO PRN ×2 (03:59→16:11)
[2018-01-31] MEDS: CEFOXITIN SOD 1 GM VIAL IV SCH ×3 (04:31→19:39)
[2018-01-31] MEDS: SODIUM CHLORIDE 0.9% 1000ML 1,000 ML IV SCH (05:19)
[2018-01-31 05:46] LABS: BASOPHILS % 0.5 % (0.0-1.0); EOSINOPHILS % 0.7 % (0.0-6.0); HEMATOCRIT 35.1 % (38.2-49.6); HEMOGLOBIN 11.2 g/dL (14.0-18.0); LYMPHOCYTES # (AUTO) 0.7 (1.0-3.2); LYMPHOCYTES % 15.8 % (18.0-39.1); MEAN CORPUSCULAR HEMOGLOBIN 27.3 pg (28-32); MEAN CORPUSCULAR HGB CONC 31.9 g/dL (31-35); MEAN CORPUSCULAR VOLUME 85.4 fL (81-99); MONOCYTES # (AUTO) 0.5 (0.2-0.8); MONOCYTES % 10.9 % (4.4-11.3); NEUTROPHILS # (AUTO) 3.2 (2.1-6.9); NEUTROPHILS % 71.6 % (38.7-80.0); PLATELET COUNT 165 x10e3/uL (140-360); RED BLOOD COUNT 4.11 x10e6/uL (4.3-5.7)
[2018-01-31 06:06] LABS: ALBUMIN 3.7 g/dL (3.5-5.0); ALBUMIN/GLOBULIN RATIO 1.8 (0.8-2.0); ANION GAP 12.8 mmol/L (8-16); CALCIUM 8.6 mg/dL (8.4-10.2); CREATININE, SERUM 1.37 mg/dL (0.72-1.25); POTASSIUM 4.8 mmol/L (3.5-5.1)
[2018-01-31] MEDS: HYDRALAZINE HCL 20 MG/ML VIAL IV PRN (07:00)
[2018-01-31] MEDS: INSULIN REGULAR, HUMAN 100 UNIT/1 ML 3ML VIAL SQ SCH ×4 (07:30→21:15)
[2018-01-31] MEDS ORDERED: LOSARTAN POTASSIUM 100 MG TAB PO SCH (09:00)
[2018-01-31] MEDS: LISINOPRIL 20 MG TAB PO SCH (09:10)
[2018-01-31] MEDS: METOPROLOL SUCCINATE 50 MG TAB XL PO SCH ×2 (09:11→21:17)
[2018-01-31] MEDS: HEPARIN SOD (PORCINE) 5,000 UNIT/ML VIAL SC SCH (09:12)
[2018-01-31] MEDS: HYDROMORPHONE 2MG/ML 2 MG/ML ML IV PRN ×2 (09:30→12:56)
[2018-01-31] MEDS: ONDANSETRON HCL INJ 2 MG/ML VIAL IV PRN (09:30)
[2018-01-31] MEDS ORDERED: SUCRALFATE 1 GM TAB PO ONE (13:15)
[2018-01-31] MEDS ORDERED: HYDROMORPHONE 1MG/1ML INJ IV ONE (13:15)
[2018-01-31] MEDS ORDERED: HYDROMORPHONE 2MG/ML 2 MG/ML ML IV NR (13:30)
[2018-01-31] MEDS ORDERED: PANTOPRAZOLE SOD 40 MG TABEC PO SCH (14:00)
[2018-01-31] MEDS: PANTOPRAZOLE SODIUM 40 MG SUSPDR.PKT PO SCH (14:35)
[2018-01-31] MEDS ORDERED: HYDROMORPHONE 2MG/ML 2 MG/ML ML IV PRN (16:00)
[2018-01-31] MEDS: FAMOTIDINE 20 MG/2 ML VIAL IV SCH (16:55)
[2018-01-31] MEDS: FINASTERIDE 5 MG TAB PO SCH (21:17)
[2018-02-01] VITALS (20 sets, daily range): BP systolic 129–167; BP diastolic 79–126
[2018-02-01] MEDS: CEFOXITIN SOD 1 GM VIAL IV SCH ×3 (03:32→20:28)
[2018-02-01] MEDS: METRONIDAZOLE 500MG/NS 100ML 100 ML IV SCH ×4 (03:32→20:28)
[2018-02-01 06:11] LABS: INR 1.08
[2018-02-01] MEDS: PANTOPRAZOLE SODIUM 40 MG SUSPDR.PKT PO SCH (07:30)
[2018-02-01] MEDS: INSULIN REGULAR, HUMAN 100 UNIT/1 ML 3ML VIAL SQ SCH ×4 (07:30→21:00)
[2018-02-01] MEDS: LISINOPRIL 20 MG TAB PO SCH (08:30)
[2018-02-01] MEDS: FAMOTIDINE 20 MG/2 ML VIAL IV SCH ×2 (08:30→16:41)
[2018-02-01] MEDS: METOPROLOL SUCCINATE 50 MG TAB XL PO SCH ×2 (08:30→11:43)
[2018-02-01] MEDS: HYDRALAZINE HCL 20 MG/ML VIAL IV PRN (08:31)
[2018-02-01] MEDS: SODIUM CHLORIDE 0.9% 1000ML 1,000 ML IV SCH (09:37)
[2018-02-01] MEDS ORDERED: BUPIVACAINE 0.25%/EPI 30ML SDV INJ ONE (10:57)
[2018-02-01] MEDS ORDERED: DIGOXIN INJ 0.25 MG/ML 2 ML AMP IV ONE (13:30)
[2018-02-01] MEDS ORDERED: DILTIAZEM HCL 100 ML IV SCH (13:30)
[2018-02-01] MEDS ORDERED: DILTIAZEM HCL 5 MG/ML 5 ML VIAL IV NR (13:45)
[2018-02-01] MEDS: DILTIAZEM HCL IV SOLN 125 MG in SODIUM CHLORIDE 0.9% 100 ML IV SCH (14:19)
[2018-02-01] MEDS ORDERED: DIGOXIN INJ 0.25 MG/ML 2 ML AMP IV NR (16:30)
[2018-02-01] MEDS ORDERED: ENOXAPARIN SODIUM INJ 100 MG/ML SYR SC NR (16:30)
[2018-02-01] MEDS: METOPROLOL TARTRATE INJ 1 MG/ML VIAL IV SCH ×2 (17:45→22:34)
[2018-02-01] MEDS: LORAZEPAM INJ 2 MG/ML VIAL IV SCH (18:04)
[2018-02-01] MEDS: TAMSULOSIN HCL 0.4 MG CAP PO SCH (21:09)
[2018-02-01] MEDS: FINASTERIDE 5 MG TAB PO SCH (21:09)
[2018-02-02] VITALS (42 sets, daily range): BP systolic 120–171; BP diastolic 73–114
[2018-02-02] MEDS: SODIUM CHLORIDE 0.9% 1000ML 1,000 ML IV SCH ×2 (00:28→14:25)
[2018-02-02] MEDS: DILTIAZEM HCL IV SOLN 125 MG in SODIUM CHLORIDE 0.9% 100 ML IV SCH ×3 (00:28→23:43)
[2018-02-02] MEDS: LORAZEPAM INJ 2 MG/ML VIAL IV SCH ×5 (00:28→23:42)
[2018-02-02] MEDS: METRONIDAZOLE 500MG/NS 100ML 100 ML IV SCH ×2 (01:25→08:55)
[2018-02-02] MEDS: METOPROLOL TARTRATE INJ 1 MG/ML VIAL IV SCH ×6 (01:25→21:00)
[2018-02-02] MEDS: CEFOXITIN SOD 1 GM VIAL IV SCH ×3 (03:30→20:44)
[2018-02-02 04:38] LABS: BASOPHILS % 0.3 % (0.0-1.0); EOSINOPHILS % 0.3 % (0.0-6.0); HEMATOCRIT 34.8 % (38.2-49.6); HEMOGLOBIN 11.5 g/dL (14.0-18.0); LYMPHOCYTES # (AUTO) 0.9 (1.0-3.2); LYMPHOCYTES % 13.5 % (18.0-39.1); MEAN CORPUSCULAR HEMOGLOBIN 27.8 pg (28-32); MEAN CORPUSCULAR VOLUME 84.1 fL (81-99); MONOCYTES # (AUTO) 0.8 (0.2-0.8); MONOCYTES % 12.4 % (4.4-11.3); NEUTROPHILS # (AUTO) 4.9 (2.1-6.9); NEUTROPHILS % 73.1 % (38.7-80.0); PLATELET COUNT 179 x10e3/uL (140-360); RED BLOOD COUNT 4.14 x10e6/uL (4.3-5.7); RED CELL DISTRIBUTION WIDTH 15.3 % (11.7-14.4)
[2018-02-02 05:06] LABS: ANION GAP 14.8 mmol/L (8-16); BLOOD UREA NITROGEN 9 mg/dL (7-26); BUN/CREATININE RATIO 9 (6-25); CALCIUM 8.4 mg/dL (8.4-10.2); CARBON DIOXIDE 23 mmol/L (22-29); CHLORIDE 105 mmol/L (98-107); CREATININE, SERUM 1.05 mg/dL (0.72-1.25); EST GLOMERULAR FILTRATION RATE > 60 ML/MIN (60-); GLUCOSE 88 mg/dL (74-118); POTASSIUM 3.8 mmol/L (3.5-5.1); SODIUM 139 mmol/L (136-145)
[2018-02-02] MEDS: HYDRALAZINE HCL 20 MG/ML VIAL IV PRN (06:40)
[2018-02-02] MEDS ORDERED: NITROGLYCERIN/D5W 200 MCG/ML 250 ML IV SCH (07:00)
[2018-02-02] MEDS ORDERED: NITROGLYCERIN/D5W 200 MCG/ML 250 ML IV PRN (07:30)
[2018-02-02] MEDS: INSULIN REGULAR, HUMAN 100 UNIT/1 ML 3ML VIAL SQ SCH ×4 (07:30→20:44)
[2018-02-02] MEDS: PANTOPRAZOLE SODIUM 40 MG SUSPDR.PKT PO SCH (07:30)
[2018-02-02] MEDS ORDERED: LORAZEPAM INJ 2 MG/ML VIAL IV ONE ×2 (08:15)
[2018-02-02] MEDS: LISINOPRIL 20 MG TAB PO SCH (08:56)
[2018-02-02] MEDS: FAMOTIDINE 20 MG/2 ML VIAL IV SCH (08:56)
[2018-02-02] MEDS ORDERED: BUPIVACAINE 0.25%/EPI 30ML SDV INJ ONE (10:03)
[2018-02-02] MEDS ORDERED: MORPHINE SULFATE INJ 4 MG/ML INJ IV PRN (10:45)
[2018-02-02] MEDS ORDERED: LIDOCAINE HCL (LTA) 4 ML SOLN ONE (11:56)
[2018-02-02] MEDS ORDERED: SUGAMMADEX SODIUM 200 MG/2 ML VIAL IV ONE (13:12)
[2018-02-02] MEDS ORDERED: HYDROMORPHONE 1MG/1ML INJ IV PRN (13:30)
[2018-02-02] MEDS ORDERED: ACETAMINOPHEN 1000 MG/100 ML IV PRN (13:30)
[2018-02-02] MEDS ORDERED: HYDROCODONE/APAP 7.5MG-325MG 1 EA TAB PO PRN (13:30)
[2018-02-02] MEDS ORDERED: ONDANSETRON HCL INJ 2 MG/ML VIAL IV ONE (13:44)
[2018-02-02] MEDS ORDERED: SEVOFLURANE INHAL SOLN 250 ML PEN BTL INH ONE (13:44)
[2018-02-02] MEDS ORDERED: PROPOFOL IV EMULSION 10 MG/ML 20 ML VIAL IV ONE (13:44)
[2018-02-02] MEDS ORDERED: ROCURONIUM BROMIDE 10 MG/ML 5ML VIAL IV ONE (13:44)
[2018-02-02] MEDS ORDERED: LIDOCAINE HCL 2% LOCAL INJ 5 ML SDV VIAL INJ ONE (13:44)
[2018-02-02] MEDS ORDERED: HYDROMORPHONE 2MG/ML 2 MG/ML ML IV PRN (13:45)
[2018-02-02] MEDS ORDERED: FENTANYL CITRATE/PF 100MCG/2 ML INJ ONE ×2 (13:54→14:34)
[2018-02-02] MEDS: PANTOPRAZOLE 40 MG 10ML VIAL IV SCH (14:00)
--- NOTE | 2018-02-02 14:53 | Operative Report ---
DATE OF PROCEDURE: February 02, 2018 PREOPERATIVE DIAGNOSES: 1. Cholecystitis and cholelithiasis. 2. Abdominal pain, rule out peptic ulcer disease. POSTOPERATIVE DIAGNOSES: 1. Cholecystitis, cholelithiasis. 2. Significant intra-abdominal adhesions. 3. Small hiatal hernia with mild gastroesophageal reflux disease and diffuse gastritis. OPERATION PERFORMED: Laparoscopic cholecystectomy with lysis of adhesions and esophagogastroduodenoscopy. REAM CUTTER: Dr. Nilson Dewey. ANESTHESIA: General endotracheal. COMPLICATIONS: None. ESTIMATED BLOOD LOSS: Minimal. DESCRIPTION OF PROCEDURE: With the patient lying in bed in the supine position under good general endotracheal anesthesia, the abdomen was prepped with Betadine solution and draped in the usual manner. A Veress needle was introduced into the umbilicus, and pneumoperitoneum was established without any difficulty. An 11 mm trocar was placed into the umbilicus, and a 10 mm video laparoscope was placed into the intra-abdominal cavity. Under direct vision, three 5 mm trocars were placed in the right subcostal region. Another 5 mm trocar was placed in the left upper quadrant. Laparoscopy revealed some very dense and significant adhesions covering up the gallbladder and the right lobe of the liver from the patient's previous surgery, which is believed to be a pyloromyotomy as a child. The rest of the abdominal exploration appeared to be otherwise within normal limits. The bowel that was visualized all appeared to be normal. All of the adhesions to the right lobe of the liver that were totally covering up the gallbladder were then slowly and carefully taken down. We managed to identify the edge of the right lobe of the liver, and this was dissected all the way down. The duodenum was stuck over the area of the common duct from the patient's previous surgery, and the duodenum was swept downward carefully and slowly and all of the adhesions were slowly and carefully taken down to where we could visualize the entire gallbladder. There was a stone impacted at the neck of the gallbladder. Once this was done, the peritoneum overlying the neck of the gallbladder was then opened, and the cystic duct was identified. The cystic duct was followed to its junction with the common duct. The cystic duct was then circumferentially dissected away from the common duct, doubly clipped and divided. The cystic artery was similarly doubly clipped and divided. The gallbladder was then slowly and carefully taken off of the liver bed using the cautery scissors, and perfect hemostasis was ascertained. The gallbladder was grasped through the umbilical port and removed without any difficulty. Video laparoscopy was then again carried out. The liver bed was found to be perfectly dry. All of the excess fluid was aspirated. The pneumoperitoneum was evacuated, and all the trocars were removed under direct vision. The midline fascia at the umbilicus was then closed with a [id number] of 0 Vicryl. All layers were infiltrated on the way out with solution of 1/4 percent Marcaine. Subcutaneous tissue was approximated with 3-0 Vicryl, and the skin was closed with subcuticular 5-0 Vicryl. Benzoin, Steri-Strips and Band-Aids were applied. The sponge, lap and needle count was correct. The flexible Olympus gastroscope was then introduced into the back of the throat and slowly and carefully advanced. The upper two-thirds of the esophagus were within normal limits. At the level of the lower third, there were some signs consistent with some mild reflux esophagitis. A small hiatal hernia was present, which was traversed, and the stomach was then entered and insufflated. Examination of the stomach revealed some mild gastritis which was worse in the antral area. There was a wide-open pylorus consistent with a previous pyloromyotomy with free flow of bile into the stomach. The duodenum was inspected all the way down to the 3rd portion, and all appeared to be within normal limits. The scope was then slowly and carefully withdrawn. The patient tolerated both procedures well and returned to the recovery room in stable condition. Job#: [id number]
[2018-02-02] MEDS ORDERED: HALOPERIDOL LACTATE 5 MG/ML VIAL ONE (17:11)
[2018-02-02] MEDS ORDERED: HALOPERIDOL LACTATE 5 MG/ML VIAL IV ONE (17:15)
[2018-02-02] MEDS: PROMETHAZINE 12.5MG/ NACL 0.9% 12.5 MG/50 ML BAG IV PRN (18:19)
[2018-02-02] MEDS: TAMSULOSIN HCL 0.4 MG CAP PO SCH (20:44)
[2018-02-02] MEDS: FINASTERIDE 5 MG TAB PO SCH (20:44)
[2018-02-03] VITALS (41 sets, daily range): BP systolic 115–207; BP diastolic 75–181
[2018-02-03] MEDS: PROMETHAZINE 12.5MG/ NACL 0.9% 12.5 MG/50 ML BAG IV PRN (00:35)
[2018-02-03] MEDS: METOPROLOL TARTRATE INJ 1 MG/ML VIAL IV SCH ×2 (02:00→05:16)
[2018-02-03] MEDS: CEFOXITIN SOD 1 GM VIAL IV SCH ×3 (04:50→20:55)
[2018-02-03] MEDS: SODIUM CHLORIDE 0.9% 1000ML 1,000 ML IV SCH ×2 (05:15→19:01)
[2018-02-03] MEDS: LORAZEPAM INJ 2 MG/ML VIAL IV SCH (05:44)
[2018-02-03 07:06] LABS: BASOPHILS % 0.4 % (0.0-1.0); EOSINOPHILS % 0.3 % (0.0-6.0); HEMATOCRIT 35.9 % (38.2-49.6); HEMOGLOBIN 11.7 g/dL (14.0-18.0); LYMPHOCYTES # (AUTO) 0.6 (1.0-3.2); LYMPHOCYTES % 7.4 % (18.0-39.1); MEAN CORPUSCULAR HEMOGLOBIN 27.5 pg (28-32); MEAN CORPUSCULAR HGB CONC 32.6 g/dL (31-35); MEAN CORPUSCULAR VOLUME 84.5 fL (81-99); MONOCYTES # (AUTO) 0.8 (0.2-0.8); MONOCYTES % 10.1 % (4.4-11.3); NEUTROPHILS # (AUTO) 6.3 (2.1-6.9); NEUTROPHILS % 81.4 % (38.7-80.0); PLATELET COUNT 161 x10e3/uL (140-360); RED BLOOD COUNT 4.25 x10e6/uL (4.3-5.7); RED CELL DISTRIBUTION WIDTH 15.9 % (11.7-14.4)
[2018-02-03 07:29] LABS: ALANINE AMINOTRANSFERASE 36 IU/L (0-55); ALBUMIN 3.3 g/dL (3.5-5.0); ALBUMIN/GLOBULIN RATIO 1.7 (0.8-2.0); ALKALINE PHOSPHATASE 50 IU/L (40-150); AMYLASE 45 U/L (25-125); ANION GAP 15.4 mmol/L (8-16); BLOOD UREA NITROGEN 7 mg/dL (7-26); BUN/CREATININE RATIO 8 (6-25); CALCIUM 8.1 mg/dL (8.4-10.2); CARBON DIOXIDE 22 mmol/L (22-29); CHLORIDE 105 mmol/L (98-107); CREATININE, SERUM 0.85 mg/dL (0.72-1.25); EST GLOMERULAR FILTRATION RATE > 60 ML/MIN (60-); GLUCOSE 99 mg/dL (74-118); POTASSIUM 3.4 mmol/L (3.5-5.1); SODIUM 139 mmol/L (136-145)
[2018-02-03] MEDS: INSULIN REGULAR, HUMAN 100 UNIT/1 ML 3ML VIAL SQ SCH ×4 (07:30→20:56)
--- NOTE | 2018-02-03 08:13 | Diagnostic Imaging Report ---
History:AMS, A. fib Comparison studies:None Technique: Axial images were obtained from the skull base to the vertex. Coronal and sagittal images reconstructed from the axial data. Intravenous contrast: None Dose modulation, iterative reconstruction, and/or weight based adjustment of the mA/kV was utilized to reduce the radiation dose to as low as reasonably achievable. Findings: Scalp/skull: No abnormalities. Extra-axial spaces: No masses. No fluid collections. Brain sulci: Mildly prominent. Ventricles: Mild compensatory dilatation. No hydrocephalus. Parenchyma: Scattered small hypodensities in the supratentorial white matter are small vessel ischemic changes. Chronic lacunar infarcts at the right striatocapsular and right subinsular region. No masses, hemorrhage, acute or chronic cortical vascular insults. Sellar/suprasellar region: No abnormalities. Craniocervical junction: Patent foramen magnum. No Chiari one malformation. Incidental findings: Atherosclerotic calcifications in the carotid siphons . Patent bilateral eye lenses. Metallic foreign bodies at the left superolateral orbit, with surrounding beam hardening artifact. Impression: No acute abnormalities. Chronic findings: 1. Mild generalized volume loss. 2. Mild supratentorial white matter small vessel ischemic changes. Signed by: DR Kervin Alves M.D. on 02/03/2018 8:10 AM
--- NOTE | 2018-02-03 08:19 | Diagnostic Imaging Report ---
EXAM: XR CHEST 1 VIEW DATE: 02/03/2018 7:08 AM INDICATION: Altered mental status, atrial fibrillation COMPARISON: None FINDINGS: Lines and Tubes: Dual-lead left chest wall pacemaker with leads overlying right atrium and right ventricle. Heart and Mediastinum: Accentuated by low lung volumes. Lungs and Pleura: Ill-defined opacities lung bases. Bones and Soft Tissues: No acute findings. IMPRESSION: 1. Expiratory exam with probable basilar atelectasis. Mild edema or infectious process difficult to exclude. Signed by: Dr. Casey Kelly MD on 02/03/2018 8:15 AM
[2018-02-03] MEDS: LISINOPRIL 20 MG TAB PO SCH (09:00)
[2018-02-03] MEDS ORDERED: FUROSEMIDE INJ 10 MG/ML 2 ML VIAL IV ONE (10:30)
[2018-02-03] MEDS ORDERED: POTASSIUM CHLORIDE 20MEQ/100ML 100 ML IV ONE (10:30)
[2018-02-03] MEDS: PANTOPRAZOLE 40 MG 10ML VIAL IV SCH (11:00)
[2018-02-03] MEDS: DILTIAZEM HCL IV SOLN 125 MG in SODIUM CHLORIDE 0.9% 100 ML IV SCH ×2 (14:00→23:27)
[2018-02-03] MEDS ORDERED: DIGOXIN INJ 0.25 MG/ML 2 ML AMP IV ONE (14:30)
[2018-02-03] MEDS: HYDRALAZINE HCL 20 MG/ML VIAL IV PRN (20:26)
[2018-02-03] MEDS: FINASTERIDE 5 MG TAB PO SCH (20:41)
[2018-02-03] MEDS: TAMSULOSIN HCL 0.4 MG CAP PO SCH (20:41)
[2018-02-03] MEDS: ENOXAPARIN INJ 80 MG/0.8 ML SYR SC SCH (20:55)
[2018-02-04] VITALS (48 sets, daily range): BP systolic 112–167; BP diastolic 63–112
[2018-02-04] MEDS: CEFOXITIN SOD 1 GM VIAL IV SCH ×3 (04:24→20:19)
[2018-02-04] MEDS: DILTIAZEM HCL IV SOLN 125 MG in SODIUM CHLORIDE 0.9% 100 ML IV SCH (06:18)
[2018-02-04] MEDS: INSULIN REGULAR, HUMAN 100 UNIT/1 ML 3ML VIAL SQ SCH ×4 (07:19→20:19)
[2018-02-04] MEDS: PANTOPRAZOLE 40 MG 10ML VIAL IV SCH (10:05)
[2018-02-04] MEDS: ENOXAPARIN INJ 80 MG/0.8 ML SYR SC SCH (10:06)
[2018-02-04] MEDS: METOPROLOL SUCCINATE 50 MG TAB XL PO SCH ×2 (10:06→16:27)
[2018-02-04] MEDS: SODIUM CHLORIDE 0.9% 1000ML 1,000 ML IV SCH ×2 (10:06→23:37)
[2018-02-04] MEDS: LISINOPRIL 20 MG TAB PO SCH (10:06)
[2018-02-04] MEDS: ACETAMINOPHEN 325 MG TAB PO PRN (10:28)
[2018-02-04] MEDS: CLOPIDOGREL BISULFATE 75 MG TAB PO SCH (15:00)
[2018-02-04] MEDS ORDERED: KETOROLAC TROMETHAMINE 30 MG/ML VIAL IV PRN (15:30)
[2018-02-04] MEDS ORDERED: KETOROLAC TROMETHAMINE 30 MG/ML VIAL ONE (15:32)
[2018-02-04] MEDS: DILTIAZEM HCL 60 MG TAB PO SCH ×2 (16:13→20:19)
[2018-02-04] MEDS ORDERED: RIVAROXABAN 20 MG TABLET PO SCH (17:00)
[2018-02-04] MEDS: TAMSULOSIN HCL 0.4 MG CAP PO SCH (20:19)
[2018-02-04] MEDS: FINASTERIDE 5 MG TAB PO SCH (20:19)
[2018-02-05] VITALS (29 sets, daily range): BP systolic 111–168; BP diastolic 69–117
[2018-02-05] MEDS: CEFOXITIN SOD 1 GM VIAL IV SCH ×2 (04:00→12:08)
[2018-02-05 04:44] LABS: BASOPHILS % 0.4 % (0.0-1.0); EOSINOPHILS # (AUTO) 0.1 (0.0-0.4); EOSINOPHILS % 1.2 % (0.0-6.0); HEMOGLOBIN 11.4 g/dL (14.0-18.0); LYMPHOCYTES # (AUTO) 0.8 (1.0-3.2); LYMPHOCYTES % 10.3 % (18.0-39.1); MEAN CORPUSCULAR HEMOGLOBIN 27.5 pg (28-32); MEAN CORPUSCULAR HGB CONC 32.6 g/dL (31-35); MEAN CORPUSCULAR VOLUME 84.3 fL (81-99); MONOCYTES # (AUTO) 0.8 (0.2-0.8); MONOCYTES % 10.8 % (4.4-11.3); NEUTROPHILS # (AUTO) 5.8 (2.1-6.9); NEUTROPHILS % 76.8 % (38.7-80.0); PLATELET COUNT 156 x10e3/uL (140-360); RED BLOOD COUNT 4.15 x10e6/uL (4.3-5.7); RED CELL DISTRIBUTION WIDTH 15.6 % (11.7-14.4)
[2018-02-05 05:03] LABS: ANION GAP 14.3 mmol/L (8-16); BLOOD UREA NITROGEN 13 mg/dL (7-26); BUN/CREATININE RATIO 15 (6-25); CALCIUM 8.5 mg/dL (8.4-10.2); CARBON DIOXIDE 25 mmol/L (22-29); CHLORIDE 101 mmol/L (98-107); CREATININE, SERUM 0.88 mg/dL (0.72-1.25); EST GLOMERULAR FILTRATION RATE > 60 ML/MIN (60-); GLUCOSE 118 mg/dL (74-118); POTASSIUM 3.3 mmol/L (3.5-5.1); SODIUM 137 mmol/L (136-145)
[2018-02-05] MEDS: CLOPIDOGREL BISULFATE 75 MG TAB PO SCH (08:14)
[2018-02-05] MEDS: LISINOPRIL 20 MG TAB PO SCH (08:14)
[2018-02-05] MEDS: DILTIAZEM HCL 60 MG TAB PO SCH ×2 (08:14→12:08)
[2018-02-05] MEDS: ACETAMINOPHEN 325 MG TAB PO PRN (08:15)
[2018-02-05] MEDS: METOPROLOL SUCCINATE 50 MG TAB XL PO SCH (08:15)
[2018-02-05] MEDS: INSULIN REGULAR, HUMAN 100 UNIT/1 ML 3ML VIAL SQ SCH ×2 (08:17→12:08)
[2018-02-05] MEDS ORDERED: PANTOPRAZOLE SOD 40 MG TABEC PO SCH (09:00)
[2018-02-05] MEDS ORDERED: POTASSIUM CHLORIDE 20 MEQ TAB CR PO ONE (11:55)
[2018-02-05] MEDS ORDERED: POTASSIUM CHLORIDE 20 MEQ TAB CR PO NR (12:15)
== END 2018-02-05 15:50 | disposition home health service (06) | DRG 419 ==
LOC: ER 22:58 → ERHOLD 01-30 01:09 → MED/SURG2 01-30 01:54 → ICU 02-01 13:42
PROVIDERS: ADMIT Family Medicine; ATTEND Family Medicine
PROC: 0FT44ZZ Resection of Gallbladder, Percutaneous Endoscopic Approach (ICD-10-PCS; principal; 2018-01-30)
PROC: 0DNW4ZZ Release Peritoneum, Percutaneous Endoscopic Approach (ICD-10-PCS; 2018-01-30)
PROC: 0DJ08ZZ Inspection of Upper Intestinal Tract, Via Natural or Artificial Opening Endoscopic (ICD-10-PCS; 2018-01-30)
DX: K80.10 Calculus of gallbladder with chronic cholecystitis without obstruction (principal); K82.8 Other specified diseases of gallbladder; K44.9 Diaphragmatic hernia without obstruction or gangrene; K21.0 Gastro-esophageal reflux disease with esophagitis; K29.70 Gastritis, unspecified, without bleeding; K66.0 Peritoneal adhesions (postprocedural) (postinfection); I48.91 Unspecified atrial fibrillation; Z79.01 Long term (current) use of anticoagulants
CPT/HCPCS: 36415; 43235; 70450; 71045; 80048; 80053; 81001; 82150; 82550; 82553; 82948; 83690; 84484; 85025; 85610; 85730; 87086; 88304; 93005; 96361; 96372; 96374; 96376; 99284; C1766; J0360; J0500; J0694; J1160; J1630; J1644; J1650; J1885; J1940; J2001; J2060; J2270; J2405; J2550; J3480; J7030; J7050

== ENCOUNTER 2018-02-27 08:40 | Emergency (ER) | payer MEDICARE, BC ==
[~2018-02-27] VITALS: Ht 193 cm; Wt 102.1 kg
--- OUTSIDE RECORDS SUMMARY | 2018-02-27 08:43 | XMS REPORT | Clinical Summary ---
Author Author [facility] Address Unknown Phone Unavailable Care Team Providers Care Clay Roaster Name Role Phone PCP Unavailable Allergies Active Allergy Reactions Severity Noted Date Comments Codeine 02/15/2016 HALLUCINATIONS Xjhwjfw-Qzo-Ulw Reductase Other (See Comments) Low 02/10/2016 Sore joints Inhibitors Current Medications Prescription Sig. Disp. Refills Start [...] 16 times daily with breakfast and dinner. dronedarone (MULTAQ) 400 Take 400 mg by mouth 2 Active mg tablet (two) times daily with breakfast and dinner. loratadine (CLARITIN) 10 Take 10 mg by mouth Active mg tablet daily. silodosin 8 mg Cap Take by mouth. Active clopidogrel (PLAVIX) 75 Take 75 mg by mouth Active mg tablet daily. folic acid (FOLVITE) 1 MG Take 1 mg by mouth daily. Active tablet clonazePAM (KLONOPIN) 0.5 Take 0.5 mg by mouth 2 Active MG tablet (two) times daily as needed for Anxiety. dilTIAZem (CARDIZEM CD) Take 180 mg by mouth as Active 180 MG 24 hr capsule needed Takes as needed for BP . metoprolol (LOPRESSOR) Take 50 mg twice per day. 12/15/19 Active 100 MG tablet 18 ALFUZOSIN HCL (ALFUZOSIN Take 10 mg by mouth 12/14/19 Discontin ORAL) daily. 18 ued metoprolol (LOPRESSOR) 25 Take 100 mg by mouth 2 12/15/19 Discontin MG tablet (two) times daily Takes 18 ued 1/2 tab in am, whole tab in pm. Active Problems Problem Noted Date A-fib ([facility]) 08/24/2016 CAD (coronary artery disease), [place] coronary artery 02/10/2016 DM (diabetes mellitus) type II controlled, neurological manifestation ([facility]) 02/10/2016 BPH (benign prostatic hyperplasia) 02/10/2016 HTN (hypertension) 02/10/2016 PAF (paroxysmal atrial fibrillation) ([facility]) 02/10/2016 Hyperlipemia 02/10/2016 Encounters Date Type Specialty Care Team Description 12/13/2017 [facility] Cardiology Valdemar Brock MD Atrial fibrillation, - Encounter unspecified type ([facility]) 12/14/2017 12/13/2017 Orders Only General Internal Medicine 12/13/2017 Anesthesia Jairon Genao Event 12/13/2017 Procedure Pass 12/13/2017 Surgery Valdemar Brock MD EPS & ABLATION 12/11/2017 [facility] Cardiology Valdemar Brock MD Atrial fibrillation, Encounter unspecified type ([facility]);Shortness of breath 12/11/2017 [facility] Radiology Valdemar Brock MD Atrial fibrillation, Encounter unspecified type ([facility]);Shortness of breath 12/06/2017 Outside Orders Central Scheduling Valdemar Brock MD Atrial fibrillation, unspecified type ([facility]) (Primary Dx);Shortness of breath after 02/26/2017 Social History Tobacco Use Types Packs/Day Years Used Date Never Smoker Smokeless Tobacco: Never Used Alcohol Use Drinks/Week oz/Week Comments No Sex Assigned at Date Recorded Not on file Last Filed Vital Signs Vital Sign Reading Time Taken Blood Pressure 191/88 12/14/2017 7:53 AM CDT Pulse 63 12/14/2017 7:53 AM CDT Temperature 36.3 C (97.4 F) 12/14/2017 7:53 AM CDT Respiratory Rate 18 12/14/2017 7:53 AM CDT Oxygen Saturation 99% 12/14/2017 7:53 AM CDT Inhaled Oxygen - - Concentration Weight 104.3 kg (230 lb) 12/13/2017 6:48 AM CDT Height 190.5 cm (6' 3") 12/13/2017 6:48 AM CDT Body Mass Index 28.75 12/13/2017 6:48 AM CDT Plan of Treatment Not on file Procedures Procedure Name Priority Date/Time Associated Diagnosis Comments EPS & ABLATION 12/13/2017 Atrial fibrillation, 12:01 PM CDT unspecified type (HCC) Case Notes (2) CASE POP6 EPS OF AFIB W/CARTO AND CV ANESTH after 02/26/2017 Results * RHYTHM STRIP - SCAN (12/15/2017 2:41 PM) * CARDIAC CATH REPORT - SCAN (12/15/2017 2:41 PM) Only the most recent of 2 results within the time period is included. * ARRYTHMIA IMPLANT REPORT - SCAN (12/15/2017 2:41 PM) * TRANSFUSION SERVICE REPORT - SCAN (12/14/2017 6:01 PM) * CBC (Hemogram only) (12/14/2017 3:13 AM) Component Value Ref Range WBC 7.8 3.5 - 10.5 K/L RBC 4.14 (L) 4.63 - 6.08 M/L Hemoglobin 11.2 (L) 13.7 - 17.5 GM/DL Hematocrit 36.7 (L) 40.1 - 51.0 % MCV 88.6 79.0 - 92.2 fL MCH 27.1 25.7 - 32.2 pg MCHC 30.5 (L) 32.3 - 36.5 GM/DL RDW 14.6 (H) 11.6 - 14.4 % Platelets 178 150 - 450 K/CU MM MPV 9.1 (L) 9.4 - 12.4 fL nRBC 0 0 - 0 /100 WBC Specimen Performing Laboratory Blood [facility] [address] [address] * Basic metabolic panel (12/14/2017 3:13 AM) Only the most recent of 3 results within the time period is included. Component Value Ref Range Sodium 136 136 - 145 meq/L Potassium 4.1 3.5 - 5.1 meq/L Chloride 103 98 - 107 meq/L CO2 24 22 - 29 meq/L BUN 18 7 - 21 mg/dL Creatinine 1.40 (H) 0.57 - 1.25 mg/dL Glucose 128 (H) 70 - 105 mg/dL Calcium 8.5 8.4 - 10.2 mg/dL EGFR 49Comment: ESTIMATED GFR IS NOT ACCURATE mL/min/1.73 sq m CREATININE CLEARANCE IN PREDICTING GLOMERULAR FILTRATION RATE. ESTIMATED GFR IS NOT APPLICABLE FOR DIALYSIS PATIENTS. Specimen Performing Laboratory Blood [address] [address] * POC-Glucose meter (12/14/2017 3:01 AM) Component Value Ref Range POC-Glucose Meter 141 (H)Comment: TESTED AT [address] 70 - 110 mg/dL [facility] [address] Specimen Performing Laboratory Blood [address] [address] * POC ACTIVATED CLOTTING TIME (12/13/2017 6:10 PM) Only the most recent of 5 results within the time period is included. Component Value Ref Range Activated Clotting Time 125Comment: TESTED AT [address] [address] Specimen Performing Laboratory Blood [address] [address] * Prothrombin time/INR (12/13/2017 8:23 AM) Component Value Ref Range Protime 16.5 (H) 11.7 - 14.7 seconds INR 1.3 <=5.9 Specimen Performing Laboratory [address] [address] Narrative RECOMMENDED COUMADIN/WARFARIN INR THERAPY RANGES STANDARD DOSE: 2.0 - 3.0 Includes: PROPHYLAXIS for venous thrombosis, systemic embolization; TREATMENT for venous thrombosis and/or pulmonary embolus. HIGH RISK: Target INR is 2.5-3.5 for patients with mechanical heart valves. * ECG 12 lead (12/13/2017 8:13 AM) Specimen Performing Laboratory [facility] Narrative Ventricular Rate 78 BPM Atrial Rate 62 BPM QRS Duration 86 ms Q-T Interval 400 ms QTC Calculation(Bazett) 456 ms R [place] -7 degrees T [place] 35 degrees Atrial fibrillation with frequent ventricular-paced complexes Abnormal ECG No previous ECGs available Confirmed by MD FOREMAN JORGE ([id number]) on 12/13/2017 12:13:39 PM Procedure Note Interface, External Ris In - 12/13/2017 12:13 PM CDT Ventricular Rate 78 BPM Atrial Rate 62 BPM QRS Duration 86 ms Q-T Interval 400 ms QTC Calculation(Bazett) 456 ms R [place] -7 degrees T [place] 35 degrees Atrial fibrillation with frequent ventricular-paced complexes Abnormal ECG No previous ECGs available Confirmed by MD FOREMAN JORGE ([id number]) on 12/13/2017 12:13:39 PM * CBC with platelet count + automated diff (12/13/2017 7:55 AM) Component Value Ref Range WBC 4.9 3.5 - 10.5 K/L RBC 4.30 (L) 4.63 - 6.08 M/L Hemoglobin 11.5 (L) 13.7 - 17.5 GM/DL Hematocrit 37.7 (L) 40.1 - 51.0 % MCV 87.7 79.0 - 92.2 fL MCH 26.7 25.7 - 32.2 pg MCHC 30.5 (L) 32.3 - 36.5 GM/DL RDW 14.4 11.6 - 14.4 % Platelets 171 150 - 450 K/CU MM MPV 8.8 (L) 9.4 - 12.4 fL nRBC 0 0 - 0 /100 WBC % Neutros 75 % % Lymphs 14 % % Monos 9 % % Eos 1 % % Baso 1 % # Neutros 3.67 1.78 - 5.38 K/L # Lymphs 0.70 (L) 1.32 - 3.57 K/L # Monos 0.43 0.30 - 0.82 K/L # Eos 0.03 (L) 0.04 - 0.54 K/L # Baso 0.03 0.01 - 0.08 K/L Immature 1 0 - 1 % Granulocytes-Relative Specimen Performing Laboratory Blood [facility] [address] [address] * CBC with platelet count + automated diff (12/13/2017 7:55 AM) Specimen Performing Laboratory Blood Narrative The following orders were created for panel order CBC with platelet count + automated diff. Procedure Abnormality Status --------- ------ CBC with platelet count ...[[id number]]AbnormalFinal result Please view results for these tests on the individual orders. * Type and screen, automated (12/13/2017 7:54 AM) Component Value Ref Range ABO/RH AUTOMATED (BEAKER) O POSITIVE Ab Scrn NEGATIVE Specimen Performing Laboratory Blood [facility] [address] [place] [address], [place] [id number] * ECHOCARDIOGRAM REPORT - SCAN (12/11/2017 3:21 PM) * Transesophageal echo (12/11/2017 8:12 AM) Component Value Ref Range Ejection Fraction Specimen Performing Laboratory [facility] Narrative Transesophageal Echocardiography Report (SUZETTE) Demographics Patient Name EDGARDO LIPSCOMB Date of Study 12/11/2017 VLAD [id number] GenderMale Visit Number [id number] RaceUnknown [id number] Number OP Number Date of Birth1940 Referring Physician Delmy Aldrich Age77 year(s) Therapeutic Radiologist Monty Waite, Physician MD Fellow JANETTE Granado Procedure Type of Study [facility]ZETTE procedure:TRANSESOPHAGEAL ECHO Indications:Atrial fibrillation. Clinical History DM,DIZZY,HTN,A-FIB Height: 75 inches Weight: 106.59 kg (235 lbs) BSA: 2.35 m^2 BMI: 29.37 kg/m^2 HR: 64 bpm BP: 147/76 mmHg Procedure Informed Consent SUZETTE procedure notes Moderate sedation by performing MD using 3 mg IV versed and 50 mcg IV fentanyl. . Summary Global LV systolic function normal . No LA appendage Thrombus visualized. Runs-ss-owrjwuzp aortic regurgitation. Right ventricular systolic pressure is estimated to be 30-35 mmHg + RA pressure. Mild mitral regurgitation. Signature Findings Rhythm/BP Atrial fibrillation with a slow ventricular response. LeftGlobal LV systolic function normal . Ventricle Left Atrium No LA appendage Thrombus visualized. LA is enlarged but severity assessment is unreliable due to know SUZETTE sector size limitation. Right Right ventricular function is normal. Ventricle Atrial Septum No evidence of interatrial septal abnormality. No evidence of patent foramen ovale with intravenous agitated saline administration. Aortic ValveAortic valve is normal in appearance. Ursn-ee-zqibvvck aortic regurgitation. Mitral ValveMitral valve is normal in appearance. Mild mitral regurgitation. Tricuspid Iyet-yq-xpvgoprk tricuspid regurgitation. Right ventricular Valve systolic pressure is estimated to be 30-35 mmHg + RA pressure. Aorta Aortic root size is normal. Proximal ascending aortic size is normal. Pericardium No pericardial effusion is present. Chambers/Structures Left Ventricle LVEDV Castellano's:101.82 ml LVESV Castellano's:48.37 ml LVEF Castellano's: 52.5 % LVEDVI: 43 ml/m^2 LVESVI: 21 ml/m^2 Aorta Ascending Aorta: 3.69 cm Procedure Note Interface, External Ris In - 12/11/2017 2:35 PM CDT Transesophageal Echocardiography Report (SUZETTE) Demographics Patient Name EDGARDO LIPSCOMB Date of Study 12/11/2017 VLAD Gender Male Visit Number [id number] Race Unknown Room Number OP Number Date of 1940 Referring Physician Delmy Aldrich Age 77 year(s) Therapeutic Radiologist Monty Johnson Interpreting Noam Waite, Physician Fellow JANETTE Granado Procedure Type of Study [facility]ETTE procedure:TRANSESOPHAGEAL ECHO Indications:Atrial fibrillation. Clinical History DM,DIZZY,HTN,A-FIB Height: 75 inches Weight: 106.59 kg (235 lbs) BSA: 2.35 m^2 BMI: 29.37 kg/m^2 HR: 64 bpm BP: 147/76 mmHg Procedure Informed Consent SUZETTE procedure notes Moderate sedation by performing MD using 3 mg IV versed and 50 mcg IV fentanyl. . Summary Global LV systolic function normal . No LA appendage Thrombus visualized. Ipjl-bh-xmmwpswr aortic regurgitation. Right ventricular systolic pressure is estimated to be 30-35 mmHg + RA pressure. Mild mitral regurgitation. Signature Findings Rhythm/BP Atrial fibrillation with a slow ventricular response. Left Global LV systolic function normal . Ventricle Left Atrium No LA appendage Thrombus visualized. LA is enlarged but severity assessment is unreliable due to know SUZETTE sector size limitation. Right Right ventricular function is normal. Ventricle Atrial Septum No evidence of interatrial septal abnormality. No evidence of patent foramen ovale with intravenous agitated saline administration. Aortic Valve Aortic valve is normal in appearance. Kfll-ih-ifgbvwkn aortic regurgitation. Mitral Valve Mitral valve is normal in appearance. Mild mitral regurgitation. Tricuspid Efuz-fd-ojyubamt tricuspid regurgitation. Right ventricular Valve systolic pressure is estimated to be 30-35 mmHg + RA pressure. Aorta Aortic root size is normal. Proximal ascending aortic size is normal. Pericardium No pericardial effusion is present. Chambers/Structures Left Ventricle LVEDV Castellano's:101.82 ml LVESV Castellano's:48.37 ml LVEF Castellano's: 52.5 % LVEDVI: 43 ml/m^2 LVESVI: 21 ml/m^2 Aorta Ascending Aorta: 3.69 cm * CT heart without & with gating & 3d (12/11/2017 7:50 AM) Specimen Performing Laboratory [place] Narrative Addendum Begins REPORT STATUS:A Addendum: I agree with the previously described non vascular findings. Signed: Shamar Walters MD Report Verified Date/Time:12/11/2017 14:59:15 Reading Location: [place] [address] Angio Body Reading Room Addendum Ends FINAL REPORT CT angiography of the pulmonary veins, 11 December 2017 INDICATION: This is a 77years old malewith history of atrial fibrillation presented here for pulmonary vein ostial mapping. This study is performed in an attempt to avoid invasive procedure. TECHNIQUE:Spiral acquisition during intravenous contrast administration using a Keo multislice cardiac CT scanner without prospective ECG triggering.Multiplanar reconstructions were performed interactively by the interpreting physician using an independent (Aw[employer]) workstation. Please refer to the contrast sheet scanned in the EPIC system for the amount and route of contrast given. This exam was performed according to our departmental dose-optimisation programme, which includes automated exposure control, adjustment of the mA and/or kV according to patient size and/or use of iterative reconstruction technique. Dose modulation, iterative reconstruction, and/or weight based adjustment of the mA/kV was utilized to reduce the radiation dose to as low as reasonably achievable. FINDINGS: VASCULAR: An electronic device is identified in the left upper chest with pacing leads identified in the right-sided cardiac chambers. The pericardium appears normal. No pericardial effusion is identified. The central pulmonary artery is normal in calibre. No evidence of central pulmonary artery embolism is seen. The thoracic aorta is normal in course, calibre, and contour. There is no evidence for acute aortic pathology. The arch vessel branching pattern is normal, and the origins of the arch branch vessels are all widely patent. The cardiac chambers demonstrate normal atrioventricular and ventriculoarterial concordance, and systemic and pulmonary venous return. The left ventricle is normal in size. The coronary artery origins are normal.No coronary calcification is present. Left atrial enlargement is identified. Right atrial prominence is present. Persistent hypodensity is identified in the left atrial appendage tip, even in the second dynamic data set- the above findings suggest the distal flow versus thrombus. Correlate with echocardiography. Pulmonary vein morphology is normal with pairs of pulmonary veins on each side of the left atrium. There is no evidence for pulmonary vein stenosis. Quantitative pulmonary vein ostial mapping (measured utilizing MPR analysis) is as follows: Pulmonary veinMajor axisMinor axisCross-sectional area * Right upper 19 mm 17 mm3.7 cm2 Right lower 16 mm 14 mm1.7 cm2 Left upper19 mm 15 mm2.4 cm2 Left lower 19 mm 17 mm2.3 cm2 NON-VASCULAR: The visualised thyroid gland appears unremarkable. The chest wall and mediastinum appears normal. No significant adenopathy is identified in the mediastinum. In the lung windows, no obvious endobronchial lesion is seen, and no pleural effusion is identified. Some subsegmental atelectatic changes are seen. Calcified granuloma is identified posterior aspect of the left lung at image 30 indicating prior granulomatous disease. No suspicious pulmonary nodule is identified. The limited images of the upper abdomen reveal no significant abnormalities of the visualized organs. No acute bony pathology is identified. Some degenerative changes is noted. IMPRESSIONS: 1.Left atrial enlargement is identified. PERSISTENT HYPODENSITY is identified in the left atrial appendage tip, even in the second dynamic data set- the above findings suggest the distal flow versus thrombus. Correlate with echocardiography. 2.Pulmonary vein morphology is normal with pairs of pulmonary veins bilaterally.There is no evidence for pulmonary vein stenosis. Quantitative pulmonary vein ostial mapping is as noted above. 3.Coronary stent in the LAD territory. 4.Normal thoracic aorta. No ectasia or aneurysmal dilation is identified. Minimal atherosclerosis seen in the descending thoracic aorta. 5.No acute pulmonary pathology. Evidence of prior granulomatous disease. 6.An addendum will be dictated regarding the non-vascular findings by the Soldering Machine Tender Radiologist. Signed: Delvin Sorto MD Report Verified Date/Time:12/11/2017 08:33:56 Reading Location: [place] [address] Cardiology MRI Procedure Note Interface, External Ris In - 12/11/2017 3:01 PM CDT Addendum Begins REPORT STATUS:A Addendum: I agree with the previously described non vascular findings. Signed: Shamar Walters MD Report Verified Date/Time: 12/11/2017 14:59:15 Reading Location: [facility] [address] Angio Body Reading Room Addendum Ends FINAL REPORT CT angiography of the pulmonary veins, 11 December 2017 INDICATION: This is a 77 years old male with history of atrial fibrillation presented here for pulmonary vein ostial mapping. This study is performed in an attempt to avoid invasive procedure. TECHNIQUE: Spiral acquisition during intravenous contrast administration using a Keo multislice cardiac CT scanner without prospective ECG triggering. Multiplanar reconstructions were performed interactively by the interpreting physician using an independent (Aw[employer]omi) workstation. Please refer to the contrast sheet scanned in the EPIC system for the amount and route of contrast given. This exam was performed according to our departmental dose-optimisation programme, which includes automated exposure control, adjustment of the mA and/or kV according to patient size and/or use of iterative reconstruction technique. Dose modulation, iterative reconstruction, and/or weight based adjustment of the mA/kV was utilized to reduce the radiation dose to as low as reasonably achievable. FINDINGS: VASCULAR: An electronic device is identified in the left upper chest with pacing leads identified in the right-sided cardiac chambers. The pericardium appears normal. No pericardial effusion is identified. The central pulmonary artery is normal in calibre. No evidence of central pulmonary artery embolism is seen. The thoracic aorta is normal in course, calibre, and contour. There is no evidence for acute aortic pathology. The arch vessel branching pattern is normal, and the origins of the arch branch vessels are all widely patent. The cardiac chambers demonstrate normal atrioventricular and ventriculoarterial concordance, and systemic and pulmonary venous return. The left ventricle is normal in size. The coronary artery origins are normal. No coronary calcification is present. Left atrial enlargement is identified. Right atrial prominence is present. Persistent hypodensity is identified in the left atrial appendage tip, even in the second dynamic data set - the above findings suggest the distal flow versus thrombus. Correlate with echocardiography. Pulmonary vein morphology is normal with pairs of pulmonary veins on each side of the left atrium. There is no evidence for pulmonary vein stenosis. Quantitative pulmonary vein ostial mapping (measured utilizing MPR analysis) is as follows: Pulmonary vein Major axis Minor axis Cross-sectional area * Right upper 19 mm 17 mm 3.7 cm2 Right lower 16 mm 14 mm 1.7 cm2 Left upper 19 mm 15 mm 2.4 cm2 Left lower 19 mm 17 mm 2.3 cm2 NON-VASCULAR: The visualised thyroid gland appears unremarkable. The chest wall and mediastinum appears normal. No significant adenopathy is identified in the mediastinum. In the lung windows, no obvious endobronchial lesion is seen, and no pleural effusion is identified. Some subsegmental atelectatic changes are seen. Calcified granuloma is identified posterior aspect of the left lung at image 30 indicating prior granulomatous disease. No suspicious pulmonary nodule is identified. The limited images of the upper abdomen reveal no significant abnormalities of the visualized organs. No acute bony pathology is identified. Some degenerative changes is noted. IMPRESSIONS: 1. Left atrial enlargement is identified. PERSISTENT HYPODENSITY is identified in the left atrial appendage tip, even in the second dynamic data set - the above findings suggest the distal flow versus thrombus. Correlate with echocardiography. 2. Pulmonary vein morphology is normal with pairs of pulmonary veins bilaterally. There is no evidence for pulmonary vein stenosis. Quantitative pulmonary vein ostial mapping is as noted above. 3. Coronary stent in the LAD territory. 4. Normal thoracic aorta. No ectasia or aneurysmal dilation is identified. Minimal atherosclerosis seen in the descending thoracic aorta. 5. No acute pulmonary pathology. Evidence of prior granulomatous disease. 6. An addendum will be dictated regarding the non-vascular findings by the Soldering Machine Tender Radiologist. Signed: Delvin Sorto MD Report Verified Date/Time: 12/11/2017 08:33:56 Reading Location: [place] [address] Cardiology MRI * POC-Creatinine (12/11/2017 7:31 AM) Component Value Ref Range POC-Creatinine 1.2Comment: TESTED AT [address] 0.6 - 1.3 mg/[place] [address] POC-EGFR 59 mL/min/1.73M2 Specimen Performing Laboratory Blood [address] [address] * PT/aPTT (12/11/2017 6:49 AM) Component Value Ref Range Protime 23.8 (H) 11.7 - 14.7 seconds INR 2.1 <=5.9 PTT 56.1 (H) 22.5 - 36.0 seconds Specimen Performing Laboratory Blood [address] [address] Narrative RECOMMENDED COUMADIN/WARFARIN INR THERAPY RANGES STANDARD DOSE: 2.0 - 3.0 Includes: PROPHYLAXIS for venous thrombosis, systemic embolization; TREATMENT for venous thrombosis and/or pulmonary embolus. HIGH RISK: Target INR is 2.5-3.5 for patients with mechanical heart valves. after 02/26/2017
[2018-02-27] MEDS ORDERED: SILVER NITRATE SWABS ONE (08:55)
[2018-02-27] MEDS ORDERED: BACITRACIN ZINC 0.9GM TP ONE (08:57)
[2018-02-27] MEDS ORDERED: SILVER NITRATE SWABS TOP ONE (09:00)
[2018-02-27 10:03] VITALS: BP 134/83
== END 2018-02-27 10:15 | disposition home or self-care (01) ==
LOC: ER 08:40
DX: S51.812A Laceration without foreign body of left forearm, initial encounter (principal); W22.09XA Striking against other stationary object, initial encounter; Y92.008 Other place in unspecified non-institutional (private) residence as the place of occurrence of the external cause; I51.9 Heart disease, unspecified
CPT/HCPCS: 99283

== ENCOUNTER 2018-03-14 08:27 | Observation (INO) | payer MEDICARE, BC ==
[~2018-03-14] VITALS: Ht 193 cm; Wt 95.3 kg
--- OUTSIDE RECORDS SUMMARY | 2018-03-14 08:30 | XMS REPORT | Clinical Summary ---
Author Author [facility] Address Unknown Phone Unavailable Care Team Providers Care Exercise Physiology Professor Name Role Phone Kyle Dodge MD PCP Allergies Comments Active Allergy Reactions Severity Noted Date HALLUCINATIONS Codeine 02/15/2016 Sore joints Cimufnr-Xfv-Cls Reductase Other (See Low 02/10/2016 Inhibitors Comments) Medications End Date Status Medication Sig Dispensed Refills Start Date Active finasteride (PROSCAR) 5 Take 5 mg by 0 mg tablet mouth daily. Active rivaroxaban (XARELTO) 20 Take by mouth 0 mg Tab tablet daily. Active cetirizine (ZYRTEC) 10 MG Take 10 mg by 0 tablet mouth daily. Active MAGNESIUM CHLORIDE Take by 0 (SLOW-MAG ORAL) mouth. Active CHOLECALCIFEROL, VITAMIN Take by 0 D3, ORAL mouth. Active coenzyme Q10 100 mg Take 100 mg 0 capsule by mouth daily. Active metFORMIN (GLUCOPHAGE) Take 1 tablet 1 tablet 0 500 MG tablet (500 mg 6 total) by mouth 2 (two) times daily with breakfast and dinner. Active dronedarone (MULTAQ) 400 Take 400 mg 0 mg tablet by mouth 2 (two) times daily with breakfast and dinner. Active loratadine (CLARITIN) 10 Take 10 mg by 0 mg tablet mouth daily. Active silodosin 8 mg Cap Take by 0 mouth. Active clopidogrel (PLAVIX) 75 Take 75 mg by 0 mg tablet mouth daily. Active folic acid (FOLVITE) 1 MG Take 1 mg by 0 tablet mouth daily. Active clonazePAM (KLONOPIN) 0.5 Take 0.5 mg 0 MG tablet by mouth 2 (two) times daily as needed for Anxiety. Active dilTIAZem (CARDIZEM CD) Take 180 mg 0 180 MG 24 hr capsule by mouth as needed Takes as needed for BP . Active metoprolol (LOPRESSOR) Take 50 mg 0 100 MG tablet twice per 8 day. 12/13/2017 Discontinued ALFUZOSIN HCL (ALFUZOSIN Take 10 mg by 0 ORAL) mouth daily. 12/14/2017 Discontinued metoprolol (LOPRESSOR) 25 Take 100 mg 0 MG tablet by mouth 2 (two) times daily Takes 1/2 tab in am, whole tab in pm. Active Problems Problem Noted Date A-fib 08/24/2016 CAD (coronary artery disease), [place] coronary artery 02/10/2016 DM (diabetes mellitus) type II controlled, neurological manifestation 02/10/2016 BPH (benign prostatic hyperplasia) 02/10/2016 HTN (hypertension) 02/10/2016 PAF (paroxysmal atrial fibrillation) 02/10/2016 Hyperlipemia 02/10/2016 Encounters Care Team Description Date Type Specialty Valdemar Brock MD EPS & ABLATION 12/13/2017 Surgery Valdemar Brock MD Atrial fibrillation, unspecified type (HCC) 12/13/2017 Hospital Cardiology - Encounter 12/14/2017 12/13/2017 Orders Only General Internal Medicine Jairon Genao 12/13/2017 Anesthesia Event Valdemar Brock MD Atrial fibrillation, unspecified type (HCC); Shortness of breath 12/11/2017 Hospital Cardiology Encounter Valdemar Brock MD Atrial fibrillation, unspecified type (HCC); Shortness of breath 12/11/2017 Hospital Radiology Encounter Valdemar Brock MD Atrial fibrillation, unspecified type (HCC) (Primary Dx); Shortness of breath 12/06/2017 Outside Orders Central Scheduling after 03/13/2017 Social History Date Tobacco Use Types Packs/Day Years Used Never Smoker Smokeless Tobacco: Never Used Alcohol Use Drinks/Week oz/Week Comments No Sex Assigned at Date Recorded Not on file Industry Job Start Date Occupation Not on file Not on file Not on file Travel End Travel History Travel Start No recent travel history available. Last Filed Vital Signs Time Taken Vital Sign Reading 12/14/2017 7:53 AM CDT Blood Pressure 191/88 12/14/2017 7:53 AM CDT Pulse 63 12/14/2017 7:53 AM CDT Temperature 36.3 C (97.4 F) 12/14/2017 7:53 AM CDT Respiratory Rate 18 12/14/2017 7:53 AM CDT Oxygen Saturation 99% - Inhaled Oxygen - Concentration 12/13/2017 6:48 AM CDT Weight 104.3 kg (230 lb) 12/13/2017 6:48 AM CDT Height 190.5 cm (6' 3") 12/13/2017 6:48 AM CDT Body Mass Index 28.75 Plan of Treatment Not on file Procedures Comments Procedure Name Priority Date/Time Associated Diagnosis RHYTHM STRIP - SCAN 12/15/2017 2:41 PM CDT CARDIAC CATH REPORT - 12/15/2017 SCAN 2:41 PM CDT ARRYTHMIA IMPLANT REPORT 12/15/2017 - SCAN 2:41 PM CDT CARDIAC CATH REPORT - 12/15/2017 SCAN 2:41 PM CDT TRANSFUSION SERVICE 12/14/2017 REPORT - SCAN 6:01 PM CDT CBC (HEMOGRAM ONLY) Routine 12/14/2017 3:13 AM CDT BASIC METABOLIC PANEL (7) Routine 12/14/2017 3:13 AM CDT POCT-GLUCOSE METER Routine 12/14/2017 3:01 AM CDT POCT-ACT Routine 12/13/2017 6:10 PM CDT POCT-ACT Routine 12/13/2017 4:26 PM CDT POCT-ACT Routine 12/13/2017 4:09 PM CDT POCT-ACT Routine 12/13/2017 3:41 PM CDT POCT-ACT Routine 12/13/2017 3:17 PM CDT EPS & ABLATION 12/13/2017 Atrial fibrillation, 12:01 PM CDT unspecified type (HCC) SOB (shortness of breath) Case Notes (2) CASE POP6 EPS OF AFIB W/CARTO AND CV ANESTH PROTHROMBIN TIME/INR STAT 12/13/2017 8:23 AM CDT ECG 12-LEAD Routine 12/13/2017 8:13 AM CDT Procedure Note - Interface, External Ris In - 12/13/2017 10:33 AM CDT Ventricula r Rate 78 BPM Atrial Rate 62 BPM QRS Duration 86 ms Q-T Interval 400 ms QTC Calculatio n(Bazett) 456 ms R Ambrose -7 degrees T Ambrose 35 degrees Atrial fibrillati on with frequent ventricula r-paced complexes Septal infarct , age undetermin ed Abnormal ECG No previous ECGs available ECG 12-LEAD Routine 12/13/2017 8:13 AM CDT CBC W/PLT COUNT & AUTO STAT 12/13/2017 DIFFERENTIAL 7:55 AM CDT CBC W/PLT COUNT & AUTO STAT 12/13/2017 DIFFERENTIAL 7:55 AM CDT TYPE AND SCREEN, Routine 12/13/2017 AUTOMATED 7:54 AM CDT BASIC METABOLIC PANEL (7) STAT 12/13/2017 7:54 AM CDT ECHOCARDIOGRAM REPORT - 12/11/2017 SCAN 3:21 PM CDT TRANSESOPHAGEAL ECHO Routine 12/11/2017 Atrial fibrillation, 8:12 AM CDT unspecified type (HCC) Shortness of breath COLOR-FLOW MAPPING Routine 12/11/2017 Atrial fibrillation, 8:01 AM CDT unspecified type (HCC) Shortness of breath CONT WAVE PULSED DOPPLER Routine 12/11/2017 Atrial fibrillation, 8:01 AM CDT unspecified type (HCC) Shortness of breath CT HEART WITH/WITHOUT Routine 12/11/2017 Atrial fibrillation, GATING & 3D 7:50 AM CDT unspecified type (HCC) Shortness of breath POCT-CREATININE Routine 12/11/2017 7:31 AM CDT PT/APTT Routine 12/11/2017 Atrial fibrillation, 6:49 AM CDT unspecified type (HCC) Shortness of breath BASIC METABOLIC PANEL (7) Routine 12/11/2017 Atrial fibrillation, 6:48 AM CDT unspecified type (HCC) Shortness of breath after 03/13/2017 Results * RHYTHM STRIP - SCAN (12/15/2017 2:41 PM CDT) Narrative Performed At * CARDIAC CATH REPORT - SCAN (12/15/2017 2:41 PM CDT) Narrative Performed At * ARRYTHMIA IMPLANT REPORT - SCAN (12/15/2017 2:41 PM CDT) Narrative Performed At * CARDIAC CATH REPORT - SCAN (12/15/2017 2:41 PM CDT) Narrative Performed At * TRANSFUSION SERVICE REPORT - SCAN (12/14/2017 6:01 PM CDT) Narrative Performed At * CBC (Hemogram only) (12/14/2017 3:13 AM CDT) WBC 7.8 3.5 - 10.5 K/L [facility] RBC 4.14 (L) 4.63 - 6.08 M/L [facility] Hemoglobin 11.2 (L) 13.7 - 17.5 GM/DL [facility] Hematocrit 36.7 (L) 40.1 - 51.0 % [facility] MCV 88.6 79.0 - 92.2 fL [facility] MCH 27.1 25.7 - 32.2 pg [facility] MCHC 30.5 (L) 32.3 - 36.5 GM/DL [facility] RDW 14.6 (H) 11.6 - 14.4 % [facility] Platelets 178 150 - 450 K/CU MM [facility] MPV 9.1 (L) 9.4 - 12.4 fL [facility] nRBC 0 0 - 0 /100 WBC [facility] Specimen Blood Performing Organization Address City/State/Zipcode Phone Number [facility] [address] [place] [address] [facility] * Basic metabolic panel (12/14/2017 3:13 AM CDT) Only the most recent of 3 results within the time period is included. Sodium 136 136 - 145 meq/L [facility] Potassium 4.1 3.5 - 5.1 meq/L [facility] Chloride 103 98 - 107 meq/L [facility] CO2 24 22 - 29 meq/L [facility] BUN 18 7 - 21 mg/dL [facility] Creatinine 1.40 (H) 0.57 - 1.25 mg/dL [facility] Glucose 128 (H) 70 - 105 mg/dL [facility] Calcium 8.5 8.4 - 10.2 mg/dL [facility] EGFR 49Comment: ESTIMATED GFR IS mL/min/1.73 sq m [facility] NOT ACCURATE CREATININE [facility] CLEARANCE IN PREDICTING GLOMERULAR FILTRATION RATE. ESTIMATED GFR IS NOT APPLICABLE FOR DIALYSIS PATIENTS. Specimen Blood Performing Organization Address City/[facility]/Zipcode Phone Number [address] [address] [facility] * POC-Glucose meter (12/14/2017 3:01 AM CDT) POC-Glucose Meter 141 (H)Comment: TESTED AT 70 - 110 mg/dL [address] [address] Specimen Blood Performing Organization Address City/[facility]/Zipcode Phone Number [address] [address] [facility] * POC ACTIVATED CLOTTING TIME (12/13/2017 6:10 PM CDT) Only the most recent of 5 results within the time period is included. Activated Clotting Time 125Comment: TESTED AT [facility] sec [address] Specimen Blood Performing Organization Address City/[facility]/Zipcode Phone Number [address] [address] [facility] * Prothrombin time/INR (12/13/2017 8:23 AM CDT) Protime 16.5 (H) 11.7 - 14.7 seconds [facility] INR 1.3 <=5.9 [facility] Specimen Blood Narrative Performed At RECOMMENDED COUMADIN/WARFARIN INR THERAPY RANGES [facility] STANDARD DOSE: 2.0 - 3.0 Includes: PROPHYLAXIS for venous thrombosis, [facility] systemic embolization; TREATMENT for venous thrombosis and/or pulmonary embolus. HIGH RISK: Target INR is 2.5-3.5 for patients with mechanical heart valves. Performing Organization Address City/[facility]/Zipcode Phone Number [facility] [address] [place] [address] [facility] * ECG 12 lead (12/13/2017 8:13 AM CDT) Narrative Performed At Ventricular Rate 78 BPM GE MUSE Atrial Rate 62 BPM QRS Duration 86 ms Q-T Interval 400 ms QTC Calculation(Bazett) 456 ms R Ambrose -7 degrees T Ambrose 35 degrees Atrial fibrillation with frequent ventricular-paced complexes Abnormal ECG No previous ECGs available Confirmed by MD FOREMAN JORGE ([id number]) on 12/13/2017 12:13:39 PM Procedure Note Interface, External Ris In - 12/13/2017 12:13 PM CDT Ventricular Rate 78 BPM Atrial Rate 62 BPM QRS Duration 86 ms Q-T Interval 400 ms QTC Calculation(Bazett) 456 ms R Ambrose -7 degrees T Ambrose 35 degrees Atrial fibrillation with frequent ventricular-paced complexes Abnormal ECG No previous ECGs available Confirmed by MD FOREMAN JORGE ([id number]) on 12/13/2017 12:13:39 PM Performing Organization Address City/State/Zipcode Phone Number [employer] * CBC with platelet count + automated diff (12/13/2017 7:55 AM CDT) WBC 4.9 3.5 - 10.5 K/L [facility] RBC 4.30 (L) 4.63 - 6.08 M/L [facility] Hemoglobin 11.5 (L) 13.7 - 17.5 GM/DL [facility] Hematocrit 37.7 (L) 40.1 - 51.0 % [facility] MCV 87.7 79.0 - 92.2 fL [facility] MCH 26.7 25.7 - 32.2 pg [facility] MCHC 30.5 (L) 32.3 - 36.5 GM/DL [facility] RDW 14.4 11.6 - 14.4 % [facility] Platelets 171 150 - 450 K/CU MM [facility] MPV 8.8 (L) 9.4 - 12.4 fL [facility] nRBC 0 0 - 0 /100 WBC [facility] % Neutros 75 % [facility] % Lymphs 14 % [facility] % Monos 9 % [facility] % Eos 1 % [facility] % Baso 1 % [facility] # Neutros 3.67 1.78 - 5.38 K/L [facility] # Lymphs 0.70 (L) 1.32 - 3.57 K/L [facility] # Monos 0.43 0.30 - 0.82 K/L [facility] # Eos 0.03 (L) 0.04 - 0.54 K/L [facility] # Baso 0.03 0.01 - 0.08 K/L [facility] Immature 1 0 - 1 % [facility] Specimen Blood Performing Organization Address City/State/Zipcode Phone Number [facility] [address] [place] [address] MEDICAL CENTER * Type and screen, automated (12/13/2017 7:54 AM CDT) ABO/RH AUTOMATED (BEAKER) O POSITIVE [facility] Ab Scrn NEGATIVE [facility] Specimen Blood Performing Organization Address City/State/Zipcode Phone Number [facility] [address] [place], [place] [phone] MEDICAL CENTER * ECHOCARDIOGRAM REPORT - SCAN (12/11/2017 3:21 PM CDT) Narrative Performed At * Transesophageal echo (12/11/2017 8:12 AM CDT) Ejection Fraction [facility] ECHO HEARTLAB MKCKESSON CPA Narrative Performed At Transesophageal Echocardiography Report (SUZETTE) [facility] ECHO HEARTLAB Demographics [email or web address] Patient Name EDGARDO LIPSCOMB Date of Study 12/11/2017 VLAD [id number] GenderMale Visit Number [id number] RaceUnknown [id number] Number OP Number Date of Birth1940 Referring Physician Delmy Aldrich Age77 year(s) Roller Operator Monty Waite Physician Fellow JANETTE Granado Procedure Type of [...] normal . No LA appendage Thrombus visualized. Hgwy-bh-vitxbehv aortic regurgitation. Right ventricular systolic pressure is [...] Aortic ValveAortic valve is normal in appearance. Gtkt-bo-tumfazol aortic regurgitation. Mitral ValveMitral valve is normal in appearance. Mild mitral regurgitation. Tricuspid Dhiy-su-nbbbeegl tricuspid regurgitation. Right ventricular Valve systolic pressure [...] Study 12/11/2017 VLAD Gender Male Visit Number [id number] Race Unknown Room Number OP Number Date of 1940 Referring Physician Delmy Aldrich Age 77 year(s) Roller Operator Monty Johnson Interpreting Noam Waite Physician Fellow JANETTE Granado Procedure Type of [...] normal . No LA appendage Thrombus visualized. Xwgw-ok-vcjywhvk aortic regurgitation. Right ventricular systolic pressure is [...] Valve Aortic valve is normal in appearance. Yeaf-jb-rggzapvh aortic regurgitation. Mitral Valve Mitral valve is normal in appearance. Mild mitral regurgitation. Tricuspid Agds-tp-nvzjtric tricuspid regurgitation. Right ventricular Valve systolic pressure is estimated to be 30-35 mmHg + RA pressure. Aorta Aortic root size is normal. Proximal ascending aortic size is normal. Pericardium No pericardial effusion is present. Chambers/Structures Left Ventricle LVEDV Castellano's:101.82 ml LVESV Castellano's:48.37 ml LVEF Castellano's: 52.5 % LVEDVI: 43 ml/m^2 LVESVI: 21 ml/m^2 Aorta Ascending Aorta: 3.69 cm Performing Organization Address City/State/Zipcode Phone Number [facility] ECHO HEART[facility] MKCKESSON CPACS * CT heart without & with gating & 3d (12/11/2017 7:50 AM CDT) Narrative Performed At Addendum Begins [employer] REPORT STATUS:A Addendum: I agree with the previously described non vascular findings. Signed: Shamar Walters MD Report Verified Date/Time:12/11/2017 14:59:15 Reading Location: [place] [id number] Angio Body Reading Room Addendum Ends FINAL [...] by the interpreting physician using an independent ([employer]) workstation. Please refer to the contrast sheet [...] dictated regarding the non-vascular findings by the Chefs Radiologist. Signed: Delvin Sorto MD Report Verified Date/Time:12/11/2017 08:33:56 Reading Location: [place] [id number] Cardiology MRI Procedure Note Interface, External Ris In - 12/11/2017 3:01 PM CDT Addendum Begins REPORT STATUS:A Addendum: I agree with the previously described non vascular findings. Signed: Shamar Walters MD Report Verified Date/Time: 12/11/2017 14:59:15 Reading Location: [facility] P[address] Angio Body Reading Room Addendum Ends [...] by the interpreting physician using an independent ([employer]) workstation. Please refer to the contrast sheet [...] dictated regarding the non-vascular findings by the Chefs Radiologist. Signed: Delvin Sorto MD Report Verified Date/Time: 12/11/2017 08:33:56 Reading Location: [place] [address] Cardiology MRI Performing Organization Address City/[facility] Phone Number GE [facility] * POC-Creatinine (12/11/2017 7:31 AM CDT) POC-Creatinine 1.2Comment: [facility] 1.[facility] mg/dL [address] POC-EGFR 59 mL/min/1.73M2 [facility] Specimen Blood Performing Organization Address City/[facility]/[place] [address] [facility] * PT/aPTT (12/11/2017 6:49 AM CDT) Protime 23.8 (H) 11.7 - 14.7 seconds [facility] INR 2.1 <=5.9 [facility] PTT 56.1 (H) 22.5 - 36.0 seconds [facility] Specimen Blood Narrative Performed At RECOMMENDED COUMADIN/WARFARIN INR THERAPY RANGES [facility] STANDARD DOSE: 2.0 - 3.0 Includes: PROPHYLAXIS for venous thrombosis, [facility] systemic embolization; TREATMENT for venous thrombosis and/or pulmonary embolus. HIGH RISK: Target INR is 2.5-3.5 for patients with mechanical heart valves. Performing Organization Address City/State/Zipcode Phone Number [facility] [address] [place], [place] [phone] [facility] after 03/13/2017 Insurance Payer Benefit Subscriber ID Type Phone Address Plan / Group MEDICARE MEDICARE A xxxxxxxxxx Medicare B BLUE CROSS/BLUE SHIELD BCBS xxxxxxxxxxxx PPO [phone] [address] [place] [address] [place] Advance Directives For more information, please contact: [address] [phone] Date Inactivated Comments Code Status Date Activated 12/14/2017 12:40 PM Full Code 12/13/2017 7:06 AM This code status was determined by: Patient 12/11/2017 9:32 AM Full Code 12/11/2017 9:04 AM This code status was determined by: Patient 08/25/2016 1:10 PM Full Code 08/24/2016 6:02 AM This code status was determined by: Patient 08/23/2016 4:27 AM Full Code 08/22/2016 2:50 PM This code status was determined by: Patient 02/15/2016 10:32 PM Full Code 02/15/2016 11:47 AM This code status was determined by: Patient
[2018-03-14] MEDS ORDERED: SODIUM CHLORIDE 0.9% 1000ML 1,000 ML IV ONE (09:00)
[2018-03-14] MEDS ORDERED: HYOSCYAMINE SULFATE 0.5 MG/ML INJ IV ONE (09:00)
[2018-03-14] MEDS ORDERED: METOPROLOL TARTRATE INJ 1 MG/ML VIAL IV ONE ×2 (09:00→10:45)
[2018-03-14 09:29] LABS: BASOPHILS % 0.3 % (0.0-1.0); HEMATOCRIT 37.1 % (38.2-49.6); HEMOGLOBIN 11.9 g/dL (14.0-18.0); LYMPHOCYTES # (AUTO) 0.5 (1.0-3.2); LYMPHOCYTES % 8.8 % (18.0-39.1); MEAN CORPUSCULAR HEMOGLOBIN 27.5 pg (28-32); MEAN CORPUSCULAR HGB CONC 32.1 g/dL (31-35); MEAN CORPUSCULAR VOLUME 85.7 fL (81-99); MONOCYTES # (AUTO) 0.3 (0.2-0.8); MONOCYTES % 5.5 % (4.4-11.3); NEUTROPHILS # (AUTO) 5.2 (2.1-6.9); NEUTROPHILS % 84.8 % (38.7-80.0); PLATELET COUNT 173 x10e3/uL (140-360); RED BLOOD COUNT 4.33 x10e6/uL (4.3-5.7); RED CELL DISTRIBUTION WIDTH 15.4 % (11.7-14.4)
[2018-03-14 09:47] LABS: ALANINE AMINOTRANSFERASE 37 IU/L (0-55); ALBUMIN 3.8 g/dL (3.5-5.0); ALBUMIN/GLOBULIN RATIO 1.7 (0.8-2.0); ALKALINE PHOSPHATASE 67 IU/L (40-150); ANION GAP 12.7 mmol/L (8-16); BLOOD UREA NITROGEN 14 mg/dL (7-26); BUN/CREATININE RATIO 13 (6-25); CALCIUM 9.1 mg/dL (8.4-10.2); CARBON DIOXIDE 27 mmol/L (22-29); CHLORIDE 97 mmol/L (98-107); CREATININE, SERUM 1.06 mg/dL (0.72-1.25); EST GLOMERULAR FILTRATION RATE > 60 ML/MIN (60-); GLUCOSE 186 mg/dL (74-118); POTASSIUM 3.7 mmol/L (3.5-5.1); SODIUM 133 mmol/L (136-145)
[2018-03-14 10:07] LABS: THYROID STIMULATING HORMONE 1.726 uIU/mL (0.350-4.940)
[2018-03-14] MEDS ORDERED: METOPROLOL TARTRATE INJ 1 MG/ML VIAL IV PRN (11:00)
[2018-03-14] MEDS ORDERED: ONDANSETRON HCL INJ 2 MG/ML VIAL IV PRN (11:00)
[2018-03-14] MEDS ORDERED: SODIUM CHLORIDE FLUSH 10 ML SYR INJ PRN (11:00)
--- OUTSIDE RECORDS SUMMARY | 2018-03-14 11:16 | XMS REPORT | Clinical Summary ---
Author Author [facility] Address Unknown Phone Unavailable Care Team Providers Care Sole Sewer Hand Name Role Phone Kyle Dodge MD PCP Allergies Comments Active Allergy Reactions Severity Noted Date HALLUCINATIONS Codeine 02/15/2016 Sore joints Lytclhx-Xna-Deo Reductase Other (See Low 02/10/2016 Inhibitors Comments) [...] Date A-fib 08/24/2016 CAD (coronary artery disease), [place] coronary artery 02/10/2016 DM (diabetes mellitus) type [...] ms QTC Calculatio n(Bazett) 456 ms R [place] -7 degrees T [place] 35 degrees Atrial fibrillati on with frequent [...] CDT) WBC 7.8 3.5 - 10.5 K/L [facility] RBC 4.14 (L) 4.63 - 6.08 M/L [facility] Hemoglobin 11.2 (L) 13.7 - 17.5 GM/DL [facility] Hematocrit 36.7 (L) 40.1 - 51.0 % [facility] MCV 88.6 79.0 - 92.2 fL [facility] MCH 27.1 25.7 - 32.2 pg [facility] MCHC 30.5 (L) 32.3 - 36.5 GM/DL [facility] RDW 14.6 (H) 11.6 - 14.4 % [facility] Platelets 178 150 - 450 K/CU MM [facility] MPV 9.1 (L) 9.4 - 12.4 fL [facility] nRBC 0 0 - 0 /100 WBC [facility] Specimen Blood Performing Organization Address City/State/Zipcode Phone Number [facility] [address] [place] [address] [facility] * Basic metabolic panel (12/14/2017 3:13 AM CDT) Only the most recent of 3 results within the time period is included. Sodium 136 136 - 145 meq/L [facility] Potassium 4.1 3.5 - 5.1 meq/L [facility] Chloride 103 98 - 107 meq/L [facility] CO2 24 22 - 29 meq/L [facility] BUN 18 7 - 21 mg/dL [facility] Creatinine 1.40 (H) 0.57 - 1.25 mg/dL [facility] Glucose 128 (H) 70 - 105 mg/dL [facility] Calcium 8.5 8.4 - 10.2 mg/dL [facility] EGFR 49Comment: ESTIMATED GFR IS mL/min/1.73 sq m [facility] NOT ACCURATE CREATININE [facility] CLEARANCE IN PREDICTING GLOMERULAR FILTRATION RATE. ESTIMATED GFR IS NOT APPLICABLE FOR DIALYSIS PATIENTS. Specimen Blood Performing Organization Address City/[facility]/Zipcode Phone Number [address] [address] [facility] * POC-Glucose meter (12/14/2017 3:01 AM CDT) POC-Glucose Meter 141 (H)Comment: TESTED AT 70 - 110 mg/dL [address] [address] Specimen Blood Performing Organization Address City/[facility]/Zipcode Phone Number [address] [address] [facility] * POC ACTIVATED CLOTTING TIME (12/13/2017 6:10 PM CDT) Only the most recent of 5 results within the time period is included. Activated Clotting Time 125Comment: TESTED AT [facility] sec [address] Specimen Blood Performing Organization Address City/[facility]/Zipcode Phone Number [address] [address] [facility] * Prothrombin time/INR (12/13/2017 8:23 AM CDT) Protime 16.5 (H) 11.7 - 14.7 seconds [facility] INR 1.3 <=5.9 [facility] Specimen Blood Narrative Performed At RECOMMENDED COUMADIN/WARFARIN INR THERAPY RANGES [facility] STANDARD DOSE: 2.0 - 3.0 Includes: PROPHYLAXIS for venous thrombosis, [facility] systemic embolization; TREATMENT for venous thrombosis and/or pulmonary embolus. HIGH RISK: Target INR is 2.5-3.5 for patients with mechanical heart valves. Performing Organization Address City/[facility]/Zipcode Phone Number [facility] [address] [place] [address] [facility] * ECG 12 lead (12/13/2017 8:13 AM CDT) Narrative Performed At Ventricular Rate 78 BPM GE MUSE Atrial Rate 62 BPM QRS Duration 86 ms Q-T Interval 400 ms QTC Calculation(Bazett) 456 ms R [place] -7 degrees T [place] 35 degrees Atrial fibrillation with frequent ventricular-paced complexes Abnormal ECG No previous ECGs available Confirmed by MD FOREMAN JORGE ([id number]) on 12/13/2017 12:13:39 PM Procedure Note Interface, External Ris In - 12/13/2017 12:13 PM CDT Ventricular Rate 78 BPM Atrial Rate 62 BPM QRS Duration 86 ms Q-T Interval 400 ms QTC Calculation(Bazett) 456 ms R [place] -7 degrees T [place] 35 degrees Atrial fibrillation with frequent ventricular-paced complexes Abnormal ECG No previous ECGs available Confirmed by MD FOREMAN JORGE ([id number]) on 12/13/2017 12:13:39 PM Performing Organization Address City/State/Zipcode Phone Number [facility] * CBC with platelet count + automated diff (12/13/2017 7:55 AM CDT) WBC 4.9 3.5 - 10.5 K/L [facility] RBC 4.30 (L) 4.63 - 6.08 M/L [facility] Hemoglobin 11.5 (L) 13.7 - 17.5 GM/DL [facility] Hematocrit 37.7 (L) 40.1 - 51.0 % [facility] MCV 87.7 79.0 - 92.2 fL [facility] MCH 26.7 25.7 - 32.2 pg [facility] MCHC 30.5 (L) 32.3 - 36.5 GM/DL [facility] RDW 14.4 11.6 - 14.4 % [facility] Platelets 171 150 - 450 K/CU MM [facility] MPV 8.8 (L) 9.4 - 12.4 fL [facility] nRBC 0 0 - 0 /100 WBC [facility] % Neutros 75 % [facility] % Lymphs 14 % [facility] % Monos 9 % [facility] % Eos 1 % [facility] % Baso 1 % [facility] # Neutros 3.67 1.78 - 5.38 K/L [facility] # Lymphs 0.70 (L) 1.32 - 3.57 K/L [facility] # Monos 0.43 0.30 - 0.82 K/L [facility] # Eos 0.03 (L) 0.04 - 0.54 K/L [facility] # Baso 0.03 0.01 - 0.08 K/L [facility] Immature 1 0 - 1 % [facility] Specimen Blood Performing Organization Address City/State/Zipcode Phone Number [facility] [address] [place] [address] MEDICAL [facility]ENTER * Type and screen, automated (12/13/2017 7:54 AM CDT) ABO/RH AUTOMATED (BEAKER) O POSITIVE [facility] Ab Scrn NEGATIVE [facility] Specimen Blood Performing Organization Address City/State/Zipcode Phone Number [facility] [address] [place], [place] [phone] MEDICAL CENTER * ECHOCARDIOGRAM REPORT - SCAN (12/11/2017 3:21 PM CDT) Narrative Performed At * Transesophageal echo (12/11/2017 8:12 AM CDT) Ejection Fraction [facility] MKCKESSON CPA Narrative Performed At Transesophageal Echocardiography Report (SUZETTE) [facility] Demographics [facility] Patient Name EDGARDO LIPSCOMB Date of Study 12/11/2017 VLAD [id number] GenderMale Visit Number [id number] RaceUnknown [id number] Number OP Number Date of Birth1940 Referring Physician Delmy Aldrich Age77 year(s) Procurement Manager Monty 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 No LA appendage Thrombus visualized. Vmjj-zr-xpeohsko aortic regurgitation. Right ventricular systolic pressure is [...] Aortic ValveAortic valve is normal in appearance. Ywfm-px-zqjgckak aortic regurgitation. Mitral ValveMitral valve is normal in appearance. Mild mitral regurgitation. Tricuspid Jcxw-hk-yobxwltf tricuspid regurgitation. Right ventricular Valve systolic pressure [...] Study 12/11/2017 VLAD Gender Male Visit Number [id number] Race Unknown Room Number OP Number Date of 1940 Referring Physician Delmy Aldrich Age 77 year(s) Procurement Manager Monty Johnson Interpreting Noam Waite Physician Fellow [...] normal . No LA appendage Thrombus visualized. Tnri-tb-vqzhokje aortic regurgitation. Right ventricular systolic pressure is [...] Valve Aortic valve is normal in appearance. Yrje-zv-kdxhfdse aortic regurgitation. Mitral Valve Mitral valve is normal in appearance. Mild mitral regurgitation. Tricuspid Xjwa-rz-bjoygmot tricuspid regurgitation. Right ventricular Valve systolic pressure [...] AM CDT) Narrative Performed At Addendum Begins [employer] REPORT STATUS:A Addendum: I agree with the previously described non vascular findings. Signed: Shamar Walters MD Report Verified Date/Time:12/11/2017 14:59:15 Reading Location: [place] [id number] Angio Body Reading Room Addendum Ends FINAL [...] by the interpreting physician using an independent ([employer]) workstation. Please refer to the contrast sheet [...] dictated regarding the non-vascular findings by the Bond Manager Radiologist. Signed: Delvin Sorto MD Report Verified Date/Time:12/11/2017 08:33:56 Reading Location: [place] [id number] Cardiology MRI Procedure Note Interface, External Ris In - 12/11/2017 3:01 PM CDT Addendum Begins REPORT STATUS:A Addendum: I agree with the previously described non vascular findings. Signed: Shamar Walters MD Report Verified Date/Time: 12/11/2017 14:59:15 Reading Location: [facility] P048 Angio Body Reading Room [...] by the interpreting physician using an independent ([employer]) workstation. Please refer to the contrast sheet [...] dictated regarding the non-vascular findings by the Bond Manager Radiologist. Signed: Delvin Sorto MD Report Verified Date/Time: 12/11/2017 08:33:56 Reading Location: [place] [address] Cardiology MRI Performing Organization Address City/[facility] Services[facility] Phone Number GE RIS * POC-Creatinine (12/11/2017 7:31 AM CDT) POC-Creatinine 1.2Comment: [facility] 1.[facility] mg/dL [address] POC-EGFR 59 mL/min/1.73M2 [facility] Specimen Blood Performing Organization Address City/[facility]/[place] [address] [facility] * PT/aPTT (12/11/2017 6:49 AM CDT) Protime 23.8 (H) 11.7 - 14.7 seconds [facility] INR 2.1 <=5.9 [facility] PTT 56.1 (H) 22.5 - 36.0 seconds [facility] Specimen Blood Narrative Performed At RECOMMENDED COUMADIN/WARFARIN INR THERAPY RANGES [facility] STANDARD DOSE: 2.0 - 3.0 Includes: PROPHYLAXIS for venous thrombosis, [facility] systemic embolization; TREATMENT for venous thrombosis and/or pulmonary embolus. HIGH RISK: Target INR is 2.5-3.5 for patients with mechanical heart valves. Performing Organization Address City/State/Zipcode Phone Number [facility] [address], [place] [phone] [facility] after 03/13/2017 Insurance Payer Benefit Subscriber ID Type Phone Address Plan / Group MEDICARE MEDICARE A xxxxxxxxxx Medicare B [employer]UE [employer] BCBS xxxxxxxxxxxx PPO [phone] [address] [place] [address] [place] Advance Directives For more information, please contact: [address] [phone] Date Inactivated Comments Code Status Date Activated [...]
[2018-03-14 11:19] LABS: BILIRUBIN,URINE NEGATIVE (NEGATIVE); CLARITY,URINE SL CLOUDY (CLEAR); COLOR,URINE YELLOW (YELLOW); KETONES,URINE NEGATIVE (NEGATIVE); LEUKOCYTE ESTERASE ,URINE NEGATIVE (NEGATIVE); NITRITE,URINE NEGATIVE (NEGATIVE); PROTEIN,URINE DIPSTICK NEGATIVE (NEGATIVE); URINE UROBILINOGEN 0.2 mg/dL (0.2 - 1)
[2018-03-14 11:28] LABS: BACTERIA,URINE FEW /HPF; EPITHELIAL CELLS,URINE RARE /LPF; RBC,URINE 0-5 /HPF (0-5); WBC,URINE (MAN) 0-5 /HPF (0-5)
[2018-03-14 11:30] LABS: LYMPHOCYTES % (MANUAL) 9 % (19-48); MONOCYTES % (MANUAL) 6 % (3.4-9.0); NEUTROPHILS % (MANUAL) 84 % (40-74)
[2018-03-14 11:31] LABS: ANISOCYTOSIS SLIGHT; HYPOCHROMASIA SLIGHT; PLATELET ESTIMATE ADEQUATE; PLATELET MORPHOLOGY COMMENT NORMAL; RBC MORPHOLOGY COMMENT NORMAL
[2018-03-14 12:49] VITALS: BP 138/75
[2018-03-14 13:10] VITALS: BP 138/75
[2018-03-14 16:00] VITALS: BP 139/92
[2018-03-14 19:35] VITALS: BP 161/84
[2018-03-14] MEDS ORDERED: CLONIDINE HCL 0.1 MG TAB PO PRN ×2 (20:30→20:45)
[2018-03-14] MEDS ORDERED: LISINOPRIL 10 MG TAB PO PRN (20:30)
[2018-03-14] MEDS ORDERED: DILTIAZEM HCL 180 MG CAP ER PO PRN (20:30)
[2018-03-14 21:00] VITALS: BP 161/84
[2018-03-14] MEDS ORDERED: TAMSULOSIN HCL 0.4 MG CAP PO SCH (21:00)
[2018-03-14] MEDS ORDERED: rapaflo (21:38)
--- NOTE | 2018-03-14 22:47 | History and Physical ---
CHIEF COMPLAINT: Patient comes in with urinary retention and incidental finding of atrial fibrillation with rapid ventricular response and chest pain. HISTORY OF PRESENTING ILLNESS: This is Mr. Elvis Medellin, who was seen in the office yesterday by me, was started on antidepressant. Patient went home and had difficulty urinating and the patient came in here and was found to have urinary retention and also was found to have AFib with RVR (rapid ventricular response). PAST MEDICAL HISTORY: History of anxiety, history of benign prostatic hypertrophy, history of AFib, history of diabetes mellitus, history of depression, history of taking long-term anticoagulants. MEDICATIONS: Include clonazepam 0.5 mg as needed p.r.n., clonidine 0.5 mg as needed, Clopid 75 mg as needed, diltiazem 180 mg daily, finasteride 5 mg daily, lisinopril 40 mg daily, metformin 500 mg daily, metoprolol 50 mg ER daily, and Xarelto 20 mg daily. SURGICAL HISTORY: History of angioplasty with stents and also history of recent cholecystectomy with Dr. Matheus Dewey. Patient also had a colonoscopy and an EGD too. SOCIAL HISTORY: No ETOH, no IV drug abuse. Lives with . REVIEW OF SYSTEMS: Negative for chest pain. No shortness of breath. Positive for urinary retention. No nausea, vomiting, diarrhea. No constipation, no rectal bleeding. Positive for rapid heartbeat and chest pain. No diplopia, no blurry vision. PHYSICAL EXAMINATION: GENERAL: Patient is alert and oriented x3, rather anxious. HEENT: Normocephalic, atraumatic. Pupils react to light and accommodation. CVS: S1 and S2. Irregularly irregular. ABDOMEN: Nontender, nondistended. Leos to gravity. EXTREMITIES: No clubbing. Positive for some trace edema. LABORATORY VALUES: Hematology: Initial white count was 6.17, hemoglobin of 11.9, hematocrit of 37.1, platelets was 173,000 with a neutrophil count of 84.8. Chemistry shows sodium of 133, chloride of 97, BUN of 14, creatinine of 1.06, glucose was 186. Urine slightly cloudy. IMAGING STUDIES: None done. MICROBIOLOGY: None done. ASSESSMENT: 1. Urinary retention. 2. Atrial fibrillation with rapid ventricular response. PLAN: To keep the patient in-house. Consult Dr. Gross. Urology consult with Dr. Hurtado and Dr. Jaeger will be done. Continue to monitor the patient. Further recommendations on clinical course. Will continue to monitor the patient along with the consultants. Job#: [id number]
[2018-03-15 01:31] VITALS: BP 161/89
[2018-03-15 04:52] VITALS: BP 171/100
[2018-03-15 05:52] LABS: BASOPHILS % 0.4 % (0.0-1.0); EOSINOPHILS % 0.2 % (0.0-6.0); HEMATOCRIT 35.1 % (38.2-49.6); HEMOGLOBIN 11.2 g/dL (14.0-18.0); LYMPHOCYTES # (AUTO) 0.8 (1.0-3.2); LYMPHOCYTES % 15.6 % (18.0-39.1); MEAN CORPUSCULAR HEMOGLOBIN 27.3 pg (28-32); MEAN CORPUSCULAR HGB CONC 31.9 g/dL (31-35); MEAN CORPUSCULAR VOLUME 85.6 fL (81-99); MONOCYTES # (AUTO) 0.5 (0.2-0.8); MONOCYTES % 9.1 % (4.4-11.3); NEUTROPHILS # (AUTO) 3.8 (2.1-6.9); NEUTROPHILS % 74.3 % (38.7-80.0); PLATELET COUNT 181 x10e3/uL (140-360); RED CELL DISTRIBUTION WIDTH 15.3 % (11.7-14.4)
[2018-03-15 06:08] LABS: ALANINE AMINOTRANSFERASE 32 IU/L (0-55); ALBUMIN 3.6 g/dL (3.5-5.0); ALBUMIN/GLOBULIN RATIO 1.6 (0.8-2.0); ALKALINE PHOSPHATASE 61 IU/L (40-150); ANION GAP 12.8 mmol/L (8-16); BLOOD UREA NITROGEN 12 mg/dL (7-26); BUN/CREATININE RATIO 14 (6-25); CALCIUM 9.1 mg/dL (8.4-10.2); CARBON DIOXIDE 29 mmol/L (22-29); CHLORIDE 104 mmol/L (98-107); CREATININE, SERUM 0.85 mg/dL (0.72-1.25); EST GLOMERULAR FILTRATION RATE > 60 ML/MIN (60-); GLUCOSE 104 mg/dL (74-118); POTASSIUM 3.8 mmol/L (3.5-5.1); SODIUM 142 mmol/L (136-145)
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
--- NOTE | 2018-03-15 07:05 | Progress Note ---
DATE: March 15, 2018 Patient was admitted for acute urinary retention and atrial fibrillation with rapid ventricular response. Currently, the patient is doing well. Has a Leos catheter in. The patient is followed by Dr. Perkins at [facility] for his urological problems, and wishes to go there. No urology consult was done yesterday. The patient has no chest pain at this time. No shortness of breath. No nausea, vomiting or diarrhea. OBJECTIVE VITALS: Temperature is 97.5, pulse 81, blood pressure 171/100, SpO2 100% on room air. LABORATORY VALUES: White count is 5.08, hemoglobin of 11.2, hematocrit of 35.1. No left shift present. TSH was normal. Troponin has been normal too. Glucose is 181. Sodium is 142 and potassium is 3.8. The patient is on Xarelto for the AFib with RVR. Is on metoprolol and also on diltiazem. The patient currently is on Rapaflo for his BPH and also finasteride. PLAN: Discuss with his urologist, Dr. Perkins, about indwelling catheter. Send him to see Dr. Perkins, and possible TURP as an outpatient with his urologist. The patient cardiac ray is stable. However, Dr. Gross has yet to see him. Will go ahead and discharge him after cardiology sees him. Discharge him with indwelling catheter. Further recommendations as an outpatient. FINAL DIAGNOSES 1. Urinary retention. 2. Atrial fibrillation with rapid ventricular response. 3. Hypertension. 4. Long-term use of anticoagulant. 5. Anxiety. For further information, look in the chart. Job#: [id number] PABLO
[2018-03-15 07:21] VITALS: BP 163/92
[2018-03-15 07:22] VITALS: BP 163/92
--- NOTE | 2018-03-15 08:46 | Consultation ---
DATE OF CONSULTATION: March 15, 2018 This 77-year-old patient was admitted through the emergency room after he presented with acute urinary retention and atrial fibrillation with RVR. The patient has a long history of atrial fibrillation and had previous ablation and redo, which was unsuccessful. He also has enlarged prostate and sees a urologist, Dr. Riley at [facility]. Surgery has been contemplated. However, the patient has been doing well so far until he now developed again acute retention and required insertion of a Leos catheter. At the moment, the patient is awake, alert and stable without any complaints of chest pain, palpitations or shortness of breath. PAST MEDICAL HISTORY: Reveals that he has coronary artery disease with coronary stenting, hypertensive cardiovascular disease, atrial fibrillation, diabetes mellitus. 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 ALLERGIES: CODEINE. SOCIAL HISTORY: Negative. FAMILY HISTORY: Noncontributory. REVIEW OF SYSTEMS: The patient denies any headache, chest pain, shortness of breath. He denies any abdominal pain. He is comfortable with Leos catheter. PHYSICAL EXAMINATION VITALS: Blood pressure 160/84, temperature is 97.3, oxygen saturation on room air is 99%. CHEST: Clear to auscultation. CARDIOVASCULAR: With normal apical impulse. The rhythm is irregularly irregular with heart rate of 100-110 per minute. There is no S3. There is no rub. ABDOMEN: Soft. No tenderness or organomegaly. EXTREMITIES: Pulses are present. There is no peripheral edema. NEUROLOGIC: Does not reveal any motor defect. IMPRESSION 1. Atrial fibrillation with rapid ventricular response. 2. Benign prostatic hypertrophy with acute urinary retention. 3. Coronary artery disease with history of coronary stenting. 4. Diabetes mellitus. 5. Hypertensive cardiovascular disease. 6. 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 As in the past, the patient is considering prostate surgery. Because of the need of discontinuation of anticoagulation for some uncertain period of time, I have discussed with him before the potential risk of serious embolic event, and recommended closure of the left atrial appendage prior to prostate surgery. Also, it was discussed before to consider AV node ablation since the patient is still having events of rapid atrial fibrillation despite medications. However, this should be able to be managed medically, and there is a case of eminent surgery. It is not priority. Therefore, the risk of discontinuation of anticoagulation has again been discussed with the patient. He will contemplate to decide if he will consider closure of the left atrial appendage or proceed with the surgery accepting the risk as explained in detail. Thank you very much for letting me see this very nice patient. Job#: [id number] PABLO
[2018-03-15] MEDS ORDERED: RIVAROXABAN 20 MG TABLET PO SCH (09:00)
[2018-03-15] MEDS ORDERED: RIVAROXABAN 15 MG TABLET PO SCH (09:00)
[2018-03-15] MEDS ORDERED: DILTIAZEM HCL 180 MG CAP ER PO SCH (09:00)
[2018-03-15] MEDS ORDERED: OMEGA 3 POLYUNSAT FATTY ACIDS 1000 MG SOFTGEL PO SCH ×2 (09:00)
[2018-03-15] MEDS ORDERED: METOPROLOL SUCCINATE 50 MG TAB XL PO SCH (09:00)
[2018-03-15] MEDS ORDERED: METFORMIN HCL 500 MG TAB PO SCH (09:00)
[2018-03-15] MEDS ORDERED: CLOPIDOGREL BISULFATE 75 MG TAB PO SCH (09:00)
[2018-03-15] MEDS ORDERED: FINASTERIDE 5 MG TAB PO SCH (21:00)
== END 2018-03-15 08:28 | disposition home or self-care (01) ==
LOC: ER 08:27 → ERHOLD 11:13 → IMCU 13:03
PROVIDERS: ADMIT Family Medicine; ATTEND Family Medicine
DX: N40.1 Benign prostatic hyperplasia with lower urinary tract symptoms (principal); R33.8 Other retention of urine; I48.91 Unspecified atrial fibrillation; E11.9 Type 2 diabetes mellitus without complications; I25.10 Atherosclerotic heart disease of native coronary artery without angina pectoris; Z95.5 Presence of coronary angioplasty implant and graft; Z79.01 Long term (current) use of anticoagulants; I11.9 Hypertensive heart disease without heart failure; Z95.0 Presence of cardiac pacemaker; F41.9 Anxiety disorder, unspecified; Z86.73 Personal history of transient ischemic attack (TIA), and cerebral infarction without residual deficits
CPT/HCPCS: 36415 ×2; 51700; 71045; 80053 ×2; 81001; 82948; 84152; 84443; 84484; 85025 ×2; 93005 ×2; 99284; G0378 ×2; J1980; J7030

== ENCOUNTER 2018-03-21 00:35 | Emergency (ER) | payer MEDICARE, BC ==
[~2018-03-21] VITALS: Ht 193 cm; Wt 95.3 kg
[~2018-03-21 00:35] MED LIST changes: +rapaflo
--- OUTSIDE RECORDS SUMMARY | 2018-03-21 00:39 | XMS REPORT | Clinical Summary ---
Author Author RADHA [facility] Address Unknown Phone Unavailable Care Team Providers Care Data Sciences Director Name Role Phone Kyle Dodge MD PCP Allergies Comments Active Allergy Reactions Severity Noted Date HALLUCINATIONS Codeine 02/15/2016 Sore joints Vptvone-Wtd-Fmk Reductase Other (See Low 02/10/2016 Inhibitors Comments) [...] Date A-fib 08/24/2016 CAD (coronary artery disease), kaw coronary artery 02/10/2016 DM (diabetes mellitus) type II controlled, neurological manifestation 02/10/2016 BPH (benign prostatic hyperplasia) 02/10/2016 HTN (hypertension) 02/10/2016 PAF (paroxysmal atrial fibrillation) 02/10/2016 Hyperlipemia 02/10/2016 Encounters Care Team Description Date Type Specialty Jairon Genao 12/13/2017 Anesthesia Event Valdemar Brock MD EPS & ABLATION 12/13/2017 Surgery Valdemar Brock MD Atrial fibrillation, unspecified type (HCC) 12/13/2017 Hospital Cardiology - Encounter 12/14/2017 12/13/2017 Orders Only General Internal Medicine Valdemar Brock MD Atrial fibrillation, unspecified type (HCC); Shortness of breath 12/11/2017 Hospital Cardiology Encounter Valdemar Brock MD Atrial fibrillation, unspecified type (HCC); Shortness of breath 12/11/2017 Hospital Radiology Encounter Valdemar Brock MD Atrial fibrillation, unspecified type (HCC) (Primary Dx); Shortness of breath 12/06/2017 Outside Orders Central Scheduling after 03/20/2017 Social History Date Tobacco Use Types Packs/Day [...] ms QTC Calculatio n(Bazett) 456 ms R Gaffney -7 degrees T Gaffney 35 degrees Atrial fibrillati on with frequent [...] unspecified type (HCC) Shortness of breath after 03/20/2017 Results * RHYTHM STRIP - SCAN (12/15/2017 [...] CDT) WBC 7.8 3.5 - 10.5 K/L [facility] RBC 4.14 (L) 4.63 - 6.08 M/L [facility] Hemoglobin 11.2 (L) 13.7 - 17.5 GM/DL [facility] Hematocrit 36.7 (L) 40.1 - 51.0 % [facility] MCV 88.6 79.0 - 92.2 fL [facility] MCH 27.1 25.7 - 32.2 pg [facility] MCHC 30.5 (L) 32.3 - 36.5 GM/DL [facility] RDW 14.6 (H) 11.6 - 14.4 % [facility] Platelets 178 150 - 450 K/CU MM [facility] MPV 9.1 (L) 9.4 - 12.4 fL [facility] nRBC 0 0 - 0 /100 WBC [facility] Specimen Blood Performing Organization Address City/State/Zipcode Phone Number [facility] [address] [place] [address] [facility]ENTER * Basic metabolic panel (12/14/2017 3:13 AM CDT) Only the most recent of 3 results within the time period is included. Sodium 136 136 - 145 meq/L [facility] Potassium 4.1 3.5 - 5.1 meq/L [facility] Chloride 103 98 - 107 meq/L [facility] CO2 24 22 - 29 meq/L [facility] BUN 18 7 - 21 mg/dL [facility] Creatinine 1.40 (H) 0.57 - 1.25 mg/dL [facility] Glucose 128 (H) 70 - 105 mg/dL [facility] Calcium 8.5 8.4 - 10.2 mg/dL [facility] EGFR 49Comment: ESTIMATED GFR IS mL/min/1.[address] [facility] NOT ACCURATE CREATININE [facility] CLEARANCE IN PREDICTING GLOMERULAR FILTRATION RATE. ESTIMATED GFR IS NOT APPLICABLE FOR DIALYSIS PATIENTS. Specimen Blood Performing Organization Address City/[facility]/Zipcode Phone Number [address] [address] [facility] * POC-Glucose meter (12/14/2017 3:01 AM CDT) POC-Glucose Meter 141 (H)Comment: TESTED AT 70 - 110 mg/dL [address] [address] Specimen Blood Performing Organization Address City/[facility]/Zipcode Phone Number [address] [address] [facility] * POC ACTIVATED CLOTTING TIME (12/13/2017 6:10 PM CDT) Only the most recent of 5 results within the time period is included. Activated Clotting Time 125Comment: TESTED AT [facility] sec [address] Specimen Blood Performing Organization Address City/[facility]/Zipcode Phone Number [address] [address] [facility] * Prothrombin time/INR (12/13/2017 8:23 AM CDT) Protime 16.5 (H) 11.7 - 14.7 seconds [facility] INR 1.3 <=5.9 [facility] Specimen Blood Narrative Performed At RECOMMENDED COUMADIN/WARFARIN INR THERAPY RANGES [facility] STANDARD DOSE: 2.0 - 3.0 Includes: PROPHYLAXIS for venous thrombosis, [facility] systemic embolization; TREATMENT for venous thrombosis and/or pulmonary embolus. HIGH RISK: Target INR is 2.5-3.5 for patients with mechanical heart valves. Performing Organization Address City/[facility]/Zipcode Phone Number [facility] [address] [place] [address] [facility] * ECG 12 lead (12/13/2017 8:13 AM CDT) Narrative Performed At Ventricular Rate 78 BPM GE MUSE Atrial Rate 62 BPM QRS Duration 86 ms Q-T Interval 400 ms QTC Calculation(Bazett) 456 ms R Gaffney -7 degrees T Gaffney 35 degrees Atrial fibrillation with frequent ventricular-paced complexes Abnormal ECG No previous ECGs available Confirmed by MD FOREMAN JORGE ([id number]) on 12/13/2017 12:13:39 PM Procedure Note Interface, External Ris In - 12/13/2017 12:13 PM CDT Ventricular Rate 78 BPM Atrial Rate 62 BPM QRS Duration 86 ms Q-T Interval 400 ms QTC Calculation(Bazett) 456 ms R Gaffney -7 degrees T Gaffney 35 degrees Atrial fibrillation with frequent ventricular-paced complexes Abnormal ECG No previous ECGs available Confirmed by MD FOREMAN JORGE ([id number]) on 12/13/2017 12:13:39 PM Performing Organization Address City/State/Zipcode Phone Number [facility] * CBC with platelet count + automated diff (12/13/2017 7:55 AM CDT) WBC 4.9 3.5 - 10.5 K/L [facility] RBC 4.30 (L) 4.63 - 6.08 M/L [facility] Hemoglobin 11.5 (L) 13.7 - 17.5 GM/DL [facility] Hematocrit 37.7 (L) 40.1 - 51.0 % [facility] MCV 87.7 79.0 - 92.2 fL [facility] MCH 26.7 25.7 - 32.2 pg [facility] MCHC 30.5 (L) 32.3 - 36.5 GM/DL [facility] RDW 14.4 11.6 - 14.4 % [facility] Platelets 171 150 - 450 K/CU MM [facility] MPV 8.8 (L) 9.4 - 12.4 fL [facility] nRBC 0 0 - 0 /100 WBC [facility] % Neutros 75 % [facility] % Lymphs 14 % [facility] % Monos 9 % [facility] % Eos 1 % [facility] % Baso 1 % [facility] # Neutros 3.67 1.78 - 5.38 K/L [facility] # Lymphs 0.70 (L) 1.32 - 3.57 K/L [facility] # Monos 0.43 0.30 - 0.82 K/L [facility] # Eos 0.03 (L) 0.04 - 0.54 K/L [facility] # Baso 0.03 0.01 - 0.08 K/L [facility] Immature 1 0 - 1 % [facility] Specimen Blood Performing Organization Address City/State/Zipcode Phone Number [facility] [address] [place] [address] MEDICAL CENTER * Type and screen, automated (12/13/2017 7:54 AM CDT) ABO/RH AUTOMATED (BEAKER) O POSITIVE [facility] Ab Scrn NEGATIVE [facility] Specimen Blood Performing Organization Address City/State/Zipcode Phone Number [facility] [address] [place], [place] [phone] MEDICAL CENTER * ECHOCARDIOGRAM REPORT - SCAN (12/11/2017 3:21 PM CDT) Narrative Performed At * Transesophageal echo (12/11/2017 8:12 AM CDT) Ejection Fraction [facility] MKCKESSON CPA Narrative Performed At Transesophageal Echocardiography Report (SUZETTE) [facility] Patient Name EDGARDO LIPSCOMB Date of Study 12/11/2017 VLAD [id number] GenderMale Visit Number [id number] RaceUnknown [id number] Number OP Number Date of Birth1940 Referring Physician Delmy Aldrich Age77 year(s) 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 No LA appendage Thrombus visualized. Gejp-kl-yzroppfl aortic regurgitation. Right ventricular systolic pressure is [...] Aortic ValveAortic valve is normal in appearance. Ptbn-fr-whbycelu aortic regurgitation. Mitral ValveMitral valve is normal in appearance. Mild mitral regurgitation. Tricuspid Bita-qn-yeqevnlf tricuspid regurgitation. 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 No LA appendage Thrombus visualized. Gqeu-xk-eybnjjzt aortic regurgitation. Right ventricular systolic pressure is [...] Valve Aortic valve is normal in appearance. Iyma-eq-cawrewll aortic regurgitation. Mitral Valve Mitral valve is normal in appearance. Mild mitral regurgitation. Tricuspid Cylz-gs-lpbtlyvb tricuspid regurgitation. Right ventricular Valve systolic pressure [...] AM CDT) Narrative Performed At Addendum Begins Sellfy REPORT STATUS:A Addendum: I agree with the previously described non vascular findings. Signed: Shamar Walters MD Report Verified Date/Time:12/11/2017 14:59:15 Reading Location: [place] [id number] Angio Body Reading Room Addendum Ends FINAL [...] by the interpreting physician using an independent (Cordium) workstation. Please refer to the contrast sheet [...] dictated regarding the non-vascular findings by the Management Lecturer Radiologist. Signed: Delvin Sorto MD Report Verified Date/Time:12/11/2017 08:33:56 Reading Location: [place] [id number] Cardiology MRI Procedure Note Interface, External Ris In - 12/11/2017 3:01 PM CDT Addendum Begins REPORT STATUS:A Addendum: I agree with the previously described non vascular findings. Signed: Shamar Walters MD Report Verified Date/Time: 12/11/2017 14:59:15 Reading Location: [facility] P048 Angio Body Reading Room [...] by the interpreting physician using an independent (Cordium) workstation. Please refer to the contrast sheet [...] dictated regarding the non-vascular findings by the Management Lecturer Radiologist. Signed: Delvin Sorto MD Report Verified Date/Time: 12/11/2017 08:33:56 Reading Location: [place] [address] Cardiology MRI Performing Organization Address City/[facility] Phone Number GE RIS * POC-Creatinine (12/11/2017 7:31 AM CDT) POC-Creatinine 1.2Comment: [facility] 0.6 - 1.3 mg/dL [address] POC-EGFR 59 mL/min/1.73M2 [facility] Specimen Blood Performing Organization Address City/[facility]/[place] [address] [facility] * PT/aPTT (12/11/2017 6:49 AM CDT) Protime 23.8 (H) 11.7 - 14.7 seconds [facility] INR 2.1 <=5.9 [facility] PTT 56.1 (H) 22.5 - 36.0 seconds [facility] Specimen Blood Narrative Performed At RECOMMENDED COUMADIN/WARFARIN INR THERAPY RANGES [facility] STANDARD DOSE: 2.0 - 3.0 Includes: PROPHYLAXIS for venous thrombosis, [facility] systemic embolization; TREATMENT for venous thrombosis and/or pulmonary embolus. HIGH RISK: Target INR is 2.5-3.5 for patients with mechanical heart valves. Performing Organization Address City/State/Zipcode Phone Number [facility] [address] [place], [place] [address] [facility] after 03/20/2017 Insurance Payer Benefit Subscriber ID Type Phone Address Plan / Group MEDICARE MEDICARE A xxxxxxxxxx Medicare B BLUE CROSS/[employer]UE [employer] BCBS xxxxxxxxxxxx PPO [phone] [address] [place] [address] [place] Advance Directives For more information, please contact: [address] [phone] Date Inactivated Comments Code Status Date Activated [...]
[2018-03-21] MEDS ORDERED: LIDOCAINE JELLY 2% 10ML URO-JET TOP STA (00:48)
== END 2018-03-21 02:13 | disposition home or self-care (01) ==
LOC: ER 00:35
DX: R30.0 Dysuria (principal); R33.9 Retention of urine, unspecified; N40.1 Benign prostatic hyperplasia with lower urinary tract symptoms
CPT/HCPCS: 51700; 99282

== ENCOUNTER 2018-04-14 01:51 | Emergency (ER) | payer MEDICARE, BC ==
[~2018-04-14] VITALS: Ht 193 cm; Wt 95.3 kg
--- OUTSIDE RECORDS SUMMARY | 2018-04-14 01:55 | XMS REPORT | Clinical Summary ---
Author Author [facility] Address Unknown Phone Unavailable Care Team Providers Care Cream Dipper Name Role Phone Asked, No Pcp PCP Unavailable Allergies Comments Active Allergy Reactions Severity Noted Date hallucinations Codeine 03/26/2018 Sore joints Olcktlc-Xfr-Kuf Reductase Other (See Low 02/10/2016 Inhibitors Comments) Medications End Date Status Medication Sig Dispensed Refills Start Date Active metFORMIN (GLUCOPHAGE) Take 500 mg 0 500 mg tablet by mouth 2 (two) times a day with meals. Active finasteride (PROSCAR) 5 Take 5 mg by 0 mg tablet mouth daily. Active silodosin (RAPAFLO) 8 mg Take 8 mg by 0 capsule mouth daily. Active metoprolol succinate XL Take 150 mg 0 (TOPROL-XL) 100 mg 24 hr by mouth tablet daily as needed (for elevated HR). Active lisinopril Take 10 mg by 0 (PRINIVIL,ZESTRIL) 10 mg mouth daily tablet as needed (SBP greater 140). Active diltiazem CD (CardIZEM Take 180 mg 0 CD) 180 MG 24 hr capsule by mouth daily as needed (For HR >100). Takes if HR is greater than 100 Active clonAZEPAM (KlonoPIN) 0.5 Take 0.5 mg 0 MG disintegrating tablet by mouth 2 (two) times a day as needed for seizures. Active loratadine (CLARITIN) 10 Take 10 mg by 0 mg tablet mouth daily. Active coenzyme Q10 200 mg Take 200 mg 0 capsule by mouth daily. Active omega 0-twc-nkr-fish oil Take 1 0 (FISH OIL) 100-160-1,000 capsule by mg capsule mouth daily. Active magnesium oxide (MAG-OX) Take 400 mg 0 400 mg (241.3 mg by mouth magnesium) tablet daily. Active folic acid (FOLVITE) 1 MG Take 1 mg by 0 tablet mouth daily. Active cholecalciferol, vitamin Take 400 0 D3, (VITAMIN D3) 400 unit Units by tablet mouth daily. Active traMADol (ULTRAM) 50 mg Take 50 mg by 0 tablet mouth every 6 (six) hours as needed for moderate pain. 04/15/2018 Active phenazopyridine Take 200 mg 0 (PYRIDIUM) 200 MG tablet by mouth 8 daily. For 10 days 04/05/18-11/0 01/2304/23/2018 Active traMADol (ULTRAM) 50 mg Take 1 tablet 30 tablet 0 tabletIndications: (50 mg total) 8 Urinary retention by mouth every 6 (six) hours as needed for moderate pain for up to 10 days. 04/23/2018 Active docusate sodium (COLACE) Take 1 20 capsule 0 100 MG capsule (100 8 capsuleIndications: mg total) by Urinary retention mouth 2 (two) times a day for 10 days. 04/20/2018 Active nitrofurantoin, Take 1 14 capsule 0 macrocrystal-monohydrate, capsule (100 8 (MACROBID) 100 MG capsule mg total) by mouth 2 (two) times a day for 7 days. 04/04/2018 Discontinued clopidogrel (PLAVIX) 75 Take 75 mg by 0 mg tablet mouth daily. 04/04/2018 Discontinued rivaroxaban (XARELTO) 15 Take 15 mg by 0 mg tablet mouth. 04/11/2018 Discontinued pantoprazole (PROTONIX) Take 40 mg by 0 40 MG EC tablet mouth nightly. 04/02/2018 enoxaparin (LOVENOX) 80 Inject 80 mg 0 mg/0.8 mL syringe under the 8 skin 2 (two) times a day. 04/09/2018 ciprofloxacin (CIPRO) 500 Take 1 tablet 10 tablet 0 MG tablet (500 mg 8 total) by mouth 2 (two) times a day for 5 days. 04/11/2018 Discontinued docusate sodium (COLACE) Take 1 20 capsule 0 100 MG capsule capsule (100 8 mg total) by mouth 2 (two) times a day for 10 days. 04/11/2018 Discontinued traMADol (ULTRAM) 50 mg Take 1 tablet 30 tablet 0 tablet (50 mg total) 8 by mouth every 6 (six) hours as needed for moderate pain for up to 10 days. 04/07/2018 phenazopyridine Take 1 tablet 30 tablet 0 (PYRIDIUM) 200 MG tablet (200 mg 8 total) by mouth 3 (three) times a day as needed for bladder spasms for up to 3 days. 04/13/2018 Discontinued docusate sodium (COLACE) Take 1 20 capsule 0 100 MG capsule (100 8 capsuleIndications: mg total) by Urinary retention mouth 2 (two) times a day for 10 days. 04/13/2018 Discontinued nitrofurantoin, Take 1 14 capsule 0 macrocrystal-monohydrate, capsule (100 8 (MACROBID) 100 MG capsule mg total) by mouth 2 (two) times a day for 7 days. 04/13/2018 Discontinued nitrofurantoin, Take 1 14 capsule 0 macrocrystal-monohydrate, capsule (100 8 (MACROBID) 100 MG capsule mg total) by mouth 2 (two) times a day for 7 days. 04/13/2018 Discontinued docusate sodium (COLACE) Take 1 20 capsule 0 100 MG capsule (100 8 capsuleIndications: mg total) by Urinary retention mouth 2 (two) times a day for 10 days. Active Problems Problem Noted Date Urinary retention 04/11/2018 Enlarged prostate with urinary obstruction 04/03/2018 Encounters Care Team Description Date Type Specialty Eliel Barrera MD Goldfarb, Richard A., MD Urinary retention (Primary Dx); Chronic atrial fibrillation (HCC) 04/11/2018 [facility] General Internal Medicine - Encounter 04/13/2018 Areli Cruz APRN 04/03/2018 Anesthesia Urology Event Rene Riley MD CYSTOSCOPY, WITH TURP 04/03/2018 Surgery Urology Rene Riley MD Enlarged prostate with urinary obstruction 04/03/2018 [facility] Internal Medicine - Encounter 04/04/2018 Rene Riley MD Preop examination (Primary Dx) 03/27/2018 Pre-Admit Pre-Admission Testing Testing Appointment after 04/13/2017 Social History Date Tobacco Use Types Packs/Day Years Used Never Smoker Smokeless Tobacco: Never Used Alcohol Use Drinks/Week oz/Week Comments No Alcohol Habits Answer Date Recorded How often do you have a drink containing alcohol? Never 03/26/2018 How many drinks containing alcohol do you have on Not asked a typical day when you are drinking? How often do you have six or more drinks on one Not asked occasion? Sex Assigned at Date Recorded Not on file Industry Job Start Date Occupation Not on file Not on file Not on file Travel End Travel History Travel Start No recent travel history available. Last Filed Vital Signs Time Taken Vital Sign Reading 04/13/2018 11:25 AM [facility] Blood Pressure 109/58 04/13/2018 11:25 AM [facility]IFE Pulse 85 04/13/2018 11:25 AM [facility]IFE Temperature 36.1 C (96.9 F) 04/13/2018 11:25 AM [facility]IFE Respiratory Rate 16 04/13/2018 11:25 AM [facility]IFE Oxygen Saturation 100% - Inhaled Oxygen - Concentration 04/03/2018 7:32 AM [facility]AY [facility]IFE Weight 96.6 kg (213 lb) 04/11/2018 9:50 AM [facility]AY MIDWIFE Height 190.5 cm (6' 3") 04/03/2018 7:32 AM [facility]IFE Body Mass Index 26.62 Plan of Treatment Health Maintenance Due Date Last Done Comments SHINGRIX VACCINE (1 of 2) 1992 ZOSTER VACCINE 2002 PNEUMOCOCCAL 2007 POLYSACCHARIDE VACCINE AGE 65 AND OVER PNEUMOCOCCAL-13 2007 INFLUENZA VACCINE 12/06/2017 Procedures Comments Procedure Name Priority Date/Time Associated Diagnosis POC GLUCOSE Routine 04/13/2018 11:26 AM [facility]IFE ESTIMATED GFR Routine 04/13/2018 4:00 AM [facility]AY [facility]IFE BASIC METABOLIC PANEL Routine 04/13/2018 4:00 AM [facility]IFE HC COMPLETE BLD COUNT Routine 04/13/2018 W/AUTO DIFF 4:00 AM [facility]IFE HEMOGLOBIN & HEMATOCRIT STAT 04/12/2018 4:45 PM [facility]AY MIDWIFE HC COMPLETE BLD COUNT Routine 04/12/2018 W/AUTO DIFF 5:00 AM [facility] MIDWIFE ESTIMATED GFR Routine 04/12/2018 4:00 AM [facility]IFE BASIC METABOLIC PANEL Routine 04/12/2018 4:00 AM [facility]IFE ESTIMATED GFR STAT 04/11/2018 12:30 PM [facility]IFE PARTIAL THROMBOPLASTIN STAT 04/11/2018 TIME (PTT) 12:30 PM [facility]AY MIDWIFE PROTHROMBIN TIME WITH INR STAT 04/11/2018 12:30 PM [facility]IFE COMPREHENSIVE METABOLIC STAT 04/11/2018 PANEL 12:30 PM LAY MIDWIFE TYPE AND SCREEN Routine 04/11/2018 12:30 PM [facility]IFE HC COMPLETE BLD COUNT STAT 04/11/2018 W/AUTO DIFF 12:30 PM LAY MIDWIFE ECG 12-LEAD STAT 04/11/2018 9:53 AM [facility]AY MIDWIFE POC GLUCOSE Routine 04/04/2018 11:37 AM [facility] MIDWIFE POC GLUCOSE Routine 04/04/2018 7:27 AM LAY MIDWIFE POC GLUCOSE Routine 04/03/2018 9:39 PM [facility]AY MIDWIFE POC GLUCOSE Routine 04/03/2018 6:48 PM LAY MIDWIFE POC GLUCOSE Routine 04/03/2018 5:06 PM L[facility] MIDWIFE POC GLUCOSE Routine 04/03/2018 2:12 PM [facility]AY MIDWIFE SURGICAL PATHOLOGY Routine 04/03/2018 REQUEST 11:15 AM LAY MIDWIFE POC GLUCOSE Routine 04/03/2018 10:49 AM [facility]IFE IA AN ELECTIVE Routine 04/03/2018 SUPRAGLOTTIC AIRWAY 9:19 AM LAY MIDWIFE Procedure Note - Kristin Kong CRNA - 04/03/2018 9:19 AM [facility]IFE ANESTHESIA INTUBATION Date/Time: 04/03/2018 9:19 AM Performed by: Kristin Kong CRNA Authorized by: Mg Mccartney DO Location: OR Urgency: Elective Difficult Airway: No Anesthesio logist: Mg Mccartney DO Resident/C RNA/AA: Kristin Kong CRNA Performed by: resident/C RNA/AA Preoxygena alan with 100% O2: Yes C-spine Precaution s Maintained Throughout : Yes Final Airway Type: Supraglott ic airway Final LMA: Classic LMA Size: 5 Number of Attempts at Approach: 2 Atraumati c insertion. First attempt with iGel 5, second attempt with classic CYSTOSCOPY, WITH TURP 04/03/2018 Enlarged prostate with 9:00 AM LAY MIDWIFE urinary obstruction Case Notes REQ 0900 START, POSSIBLE EXTENDED RECOVERY Special Needs REQ 0900 START, POSSIBLE EXTENDED RECOVERY POC GLUCOSE Routine 04/03/2018 7:09 AM LAY MIDWIFE CBC HEMOGRAM Routine 03/27/2018 Preop examination 3:30 PM [facility]AY MIDWIFE ECG PRE/POST OP Routine 03/27/2018 Preop examination 2:45 PM [facility]WIFE ESTIMATED GFR Routine 03/27/2018 2:37 PM [facility]IFE BASIC METABOLIC PANEL Routine 03/27/2018 Preop examination 2:37 PM [facility]IFE HEMOGLOBIN A1C Routine 03/27/2018 Preop examination 2:37 PM L[facility] MIDWIFE TYPE AND SCREEN Routine 03/27/2018 Preop examination 2:37 PM [facility]IFE URINALYSIS SCREEN AND Routine 03/27/2018 Preop examination MICROSCOPY, WITH REFLEX 2:37 PM LAY MIDWIFE TO CULTURE GRAM STAIN Routine 03/27/2018 2:37 PM [facility]IFE URINE CULTURE Routine 03/27/2018 2:37 PM [facility]IFE after 04/13/2017 Results * POC glucose (04/13/2018 11:26 AM LAY MIDWIFE) Only the most recent of 9 results within the time period is included. POC glucose 144 (H) 65 - 99 mg/dL [facility] Comment: [facility] Notified RN Meter ID: [id number] [place] Table Assembler: Sheriff Chuy Neito Performing Organization Address City/State/Zipcode Phone Number [facility] DEPARTMENT OF [address] [place] [address] PATHOLOGY AND GENOMIC MEDICINE [facility] [address] [place] [address] HOSPITAL * Estimated GFR (04/13/2018 4:00 AM LAY MIDWIFE) Only the most recent of 4 results within the time period is included. Estimated GFR 66 mL/min/1.73 m2 [facility] Comment: HOSPITAL CatergoryUnitsInte rpretation G1 >=90 Normal or high G2 60-89Mildly decreased [id number] Mildly to moderately decreased [id number] Moderately to severely decreased G4 15-29Severely decreased G5 <15Kidney failure The eGFR was calculated using the Chronic Kidney Disease Epidemiology Collaboration (CKD-EPI) equation. Interpretation is based on recommendations of the National Kidney Foundation-Kidney Disease Outcomes Quality Initiative (NKF-KDOQI) published in 2014. Specimen Plasma specimen Performing Organization Address City/State/Zipcode Phone Number [facility] DEPARTMENT OF [address] [place] [address] PATHOLOGY AND GENOMIC MEDICINE [facility] [address] [place] [address] * CBC with platelet and differential (04/13/2018 4:00 AM LAY MIDWIFE) Only the most recent of 3 results within the time period is included. WBC 7.70 4.50 - 11.00 k/uL [facility] RBC 3.09 (L) 4.40 - 6.00 m/uL [facility] HGB 8.4 (L) 14.0 - 18.0 g/dL [facility] HCT 27.1 (L) 41.0 - 51.0 % [facility] MCV 87.7 82.0 - 100.0 fL [facility] MCH 27.2 27.0 - 34.0 pg [facility] MCHC 31.0 31.0 - 37.0 g/dL [facility] RDW - SD 47.9 37.0 - 55.0 fL [facility] MPV 9.4 8.8 - 13.2 fL [facility] Platelet count 243 150 - 400 k/uL [facility] Nucleated RBC 0.00 /100 WBC [facility] Neutrophils 73.4 (H) 39.0 - 69.0 % [facility] Lymphocytes 16.4 (L) 25.0 - 45.0 % [facility] Monocytes 8.6 0.0 - 10.0 % [facility] Eosinophils 0.4 0.0 - 5.0 % [facility] Basophils 0.6 0.0 - 1.0 % [facility] Immature granulocytes 0.6Comment: "Immature 0.0 - 1.0 % [facility] granulocytes" (promyelocytes, HOSPITAL myelocytes, metamyelocytes) Specimen Blood Performing Organization Address City/[facility] Phone Number [facility] DEPARTMENT OF [address] [place] [address] PATHOLOGY AND GENOMIC MEDICINE [address] * Basic metabolic panel (04/13/2018 4:00 AM LAY MIDWIFE) Only the most recent of 3 results within the time period is included. Sodium 140 135 - 148 mEq/L [facility] Potassium 4.7 3.5 - 5.0 mEq/L [facility] Chloride 103 98 - 112 mEq/L [facility] CO2 23 (L) 24 - 31 mEq/L [facility] Anion gap 14@ANIO 7 - 15 mEq/L [facility] BUN 18 8 - 23 mg/dL [facility] Creatinine 1.08 0.70 - 1.20 mg/dL [facility] Glucose 120 (H) 65 - 99 mg/dL [facility] Calcium 8.8 8.8 - 10.2 mg/dL [facility] Specimen Plasma specimen Performing Organization Address [facility] Centercopr Phone Number [facility] [place] [address] PATHOLOGY AND [facility] MEDICINE [address] * Hemoglobin & hematocrit (04/12/2018 4:45 PM LAY MIDWIFE) HGB 8.6 (L) 14.0 - 18.0 g/dL [facility] HCT 27.6 (L) 41.0 - 51.0 % [facility] Specimen Blood Performing Organization Address City/[facility] Centercode Phone Number [facility] DEPARTMENT OF [address] [place] [address] PATHOLOGY AND GENOMIC MEDICINE [address] * Partial thromboplastin time, activated (04/11/2018 12:30 PM LAY MIDWIFE) PTT 39.4 (H) 23.0 - 36.0 sec [facility] Comment: HOSPITAL PTT therapeutic range for unfractionated heparin is 61.0-112.0 seconds which corresponds to Anti-Xa 0.3-0.7 U/ml. Specimen Blood Performing Organization Address City/State/Zipcode Phone Number [facility] DEPARTMENT OF [address] [place] [address] PATHOLOGY AND GENOMIC MEDICINE [address] * Prothrombin time with INR (04/11/2018 12:30 PM LAY MIDWIFE) Prothrombin time 19.8 (H) 11.5 - 14.5 sec [facility] INR 1.7 [facility] Comment: HOSPITAL The International Normalized Ratio (INR) is a therapeutic monitoring tool for patients who are stable on oral anticoagulant therapy. An INR of 2.0-3.0 is suggested for deep vein thrombosis/pulmonary embolism. Specimen Blood Performing Organization Address City/[facility] Centercode Phone Number [facility] [place] [address] PATHOLOGY AND [facility] MEDICINE [address] * Type and screen (04/11/2018 12:30 PM LAY MIDWIFE) Only the most recent of 2 results within the time period is included. ABO grouping O [facility] Rh type POS [facility] Antibody screen (gel) NEG [facility] Specimen Blood Performing Organization Address City/[facility] Centercode Phone Number [facility] DEPARTMENT OF [address] [place] [address] PATHOLOGY AND GENOMIC MEDICINE [address] * Comprehensive metabolic panel (04/11/2018 12:30 PM LAY MIDWIFE) Sodium 141 135 - 148 mEq/L [facility] Potassium 4.4 3.5 - 5.0 mEq/L [facility] Chloride 102 98 - 112 mEq/L [facility] CO2 25 24 - 31 mEq/L [facility] Anion gap 14@ANIO 7 - 15 mEq/L [facility] BUN 12 8 - 23 mg/dL [facility] Creatinine 1.02 0.70 - 1.20 mg/dL [facility] Glucose 123 (H) 65 - 99 mg/dL [facility] Calcium 8.7 (L) 8.8 - 10.2 mg/dL [facility] Protein 5.9 (L) 6.3 - 8.3 g/dL [facility] Comment: HOSPITAL 4.6-7.0 g/dL 1 week 4.4-7.6 g/dL 7 months-1year 5.1-7.3 g/dL 1-2 years5.6-7 .5 g/dL >3 years6.0-8 .0 g/dL 18-150 6.3-8.3 g/dL Albumin 3.4 (L) 3.5 - 5.0 g/dL [facility] A/G ratio 1.4 0.7 - 3.8 [facility] Alkaline phosphatase 80 40 - 129 U/L [facility] AST 32 10 - 50 U/L [facility] ALT 52 (H) 5 - 50 U/L [facility] Total bilirubin 0.8 0.0 - 1.2 mg/dL [facility] Specimen Plasma specimen Performing Organization Address City/State/[facility] [place]erc[place] [address] PATHOLOGY AND GENOMIC MEDICINE [address] * ECG 12 lead (04/11/2018 9:53 AM LAY MIDWIFE) Ventricular rate [address] [facility] Atrial rate [address] [facility] QRSD interval [address] [facility] QT interval [address] [facility] QTC interval [address] [facility] QRS axis 1 -[address] [facility] T wave axis [address] [facility] EKG impression Atrial fibrillation with rapid [facility] ventricular response-Nonspecific ST and T wave abnormality-Abnormal ECG-In automated comparison with ECG of 27-MAR-2018 14:45,-Vent. rate has increased BY50 BPM- Narrative Performed At Performing Organization Address City/State/Zipcode Phone Number [address] [address] * Surgical pathology request (04/03/2018 11:15 AM LAY MIDWIFE) [facility] DEPARTMENT OF PATHOLOGY AND GENOMIC MEDICINE Surgical pathology report See link below for PDF Lab [facility] DEPARTMENT OF Report PATHOLOGY AND GENOMIC MEDICINE Result status This is Final Report for [facility] DEPARTMENT OF [id number] PATHOLOGY AND GENOMIC MEDICINE Performing Organization Address City/State/Zipcode Phone Number [address] [place] [address] PATHOLOGY AND GENOMIC MEDICINE * CBC hemogram (03/27/2018 3:30 PM LAY MIDWIFE) WBC 5.39 4.50 - 11.00 k/uL [facility] RBC 4.26 (L) 4.40 - 6.00 m/uL [facility] HGB 11.6 (L) 14.0 - 18.0 g/dL [facility] HCT 37.0 (L) 41.0 - 51.0 % [facility] MCV 86.9 82.0 - 100.0 fL [facility] MCH 27.2 27.0 - 34.0 pg [facility] MCHC 31.4 31.0 - 37.0 g/dL [facility] RDW - SD 47.4 37.0 - 55.0 fL [facility] MPV 9.1 8.8 - 13.2 fL [facility] Platelet count 209 150 - 400 k/uL [facility] Nucleated RBC 0.00 /100 WBC [facility] Specimen Blood Performing Organization Address City/State/Zipcode Phone Number [facility] DEPARTMENT [address] [address] PATHOLOGY AND GENOMIC MEDICINE [address] * ECG Pre/Post Op (03/27/2018 2:45 PM LAY MIDWIFE) Ventricular rate 94 [facility] Atrial rate 159 [facility] QRSD interval 88 [facility] QT interval 342 [facility] QTC interval 427 [facility] QRS axis 1 3 [facility] T wave axis 77 [facility] EKG impression Atrial [facility] fibrillation-Nonspecific ST and T wave abnormality , probably digitalis effect-Abnormal ECG-No previous ECGs available- Narrative Performed At Performing Organization Address City/[facility]/[place] [address] * Urinalysis screen and microscopy, with reflex to culture (03/27/2018 2:37 PM LAY MIDWIFE) Specimen site Clean catch [facility] Color, UA Red [facility] Appearance, UA Cloudy [facility] Specific gravity, UA 1.017 1.001 - 1.035 [facility] pH, UA 5.0 5.0 - 8.5 [facility] Protein, UA 2+ (A) Negative [facility] Glucose, UA Negative Negative [facility] Ketones, UA Negative Negative [facility] Bilirubin, UA Negative Negative [facility] Blood, UA Large (A) Negative [facility] Nitrite, UA Negative Negative [facility] Urobilinogen, UA <2.0 <2.0 [facility] Leukocyte esterase, UA Moderate (A) Negative [facility] WBC, UA 96 (H) 0 - 1 /HPF [facility] RBC, UA >180 (H) 0 - 5 /HPF [facility] Bacteria, UA Few None seen [facility] Yeast, UA None seen [facility] Yeast with pseudohyphae, None seen [facility] Hyaline casts, UA 12 /LPF [facility] Specimen Urine Performing Organization Address [facility] Phone Number [facility] [place] [address] PATHOLOGY AND GENOMIC MEDICINE [address] * Gram stain (03/27/2018 2:37 PM LAY MIDWIFE) Gram stain result Many Gram positive rods [facility] Many Gram positive cocci in HOSPITAL pairs Few WBC's Comment: Specimen Information Specimen Source: Urine Specimen Site: Clean catch Specimen Urine Performing Organization Address City/[facility] Phone Number [facility] [place] [address] PATHOLOGY AND GENOMIC MEDICINE [address] * Urine culture (03/27/2018 2:37 PM LAY MIDWIFE) Urine culture isolate Enterococcus faecalis [facility] >10-5 cfu/ml HOSPITAL The performance characteristics of this assay on this isolate were validated by the Microbiology Laboratory at [facility].This source has not been approved by the U.S. Food and Drug Administration.The results are not intended to be used as the sole means for clinical diagnosis or patient management.The Microbiology Laboratory is authorized under the clinical Laboratory Improvement Amendments of 1988 (CLIA-88) to perform high complexity testing. This organism is Vancomycin Sensitive. (A) Comment: Specimen Information Specimen Source: Urine Specimen Site: Clean catch Specimen Urine Antibiotic Method Susceptibility Organism Ampicillin TAMIA 1 mcg/mL: Susceptible Enterococcus faecalis Nitrofurantoin TAMIA <=16 mcg/mL: Susceptible Enterococcus faecalis Levofloxacin TAMIA <=1 mcg/mL: Susceptible Enterococcus faecalis Linezolid TAMIA <=1 mcg/mL: Susceptible Enterococcus faecalis Minocycline TAMIA <=1 mcg/mL: Susceptible Enterococcus faecalis Tetracycline TAMIA <=0.5 mcg/mL: Susceptible Enterococcus faecalis Vancomycin TAMIA 1 mcg/mL: Susceptible Enterococcus faecalis Performing Organization Address City/State/Zipcode Phone Number [facility] DEPARTMENT OF [address] [place] [phone] PATHOLOGY [place] [address] HOSPITAL * Hemoglobin A1c (03/27/2018 2:37 PM LAY MIDWIFE) Hemoglobin A1C 6.3 (H) 4.0 - 5.6 % [facility] Comment: HOSPITAL HbA1c cutoffs for diagnosing diabetes: 4.0% - 5.6%=normal 5.7% - 6.4%=increased risk for diabetes (prediabetes) >=6.5%=diabetes Goals for glycemic control (ADA 2016) < 7.0%Target for non adults with diabetes. More or less stringent targets may be appropriate for individual patients. <7.5% Target for Children and adolescents with type 1 diabetes. Specimen Blood Performing Organization Address City/State/Zipcode Phone Number [facility] DEPARTMENT OF [address] [place] [address] PATHOLOGY AND [facility]OMIC [facility]IC[facility] [place] [facility] [id number] after 04/13/2017 Insurance Payer Benefit Subscriber ID Type Phone Address Plan / Group MEDICARE MEDICARE xxxxxxxxxxx Medicare [place], [place] PART A AND B BCBS BCBS xxxxxxxxxxxx Indemnity PAR/TRAD PLAN Advance Directives Patient has advance care planning documents on file. For more information, bryce smith contact: Watson Medina [address] [place] [phone]
--- OUTSIDE RECORDS SUMMARY | 2018-04-14 01:55 | XMS REPORT | Clinical Summary ---
Author Author RADHA [facility] Address Unknown Phone Unavailable Care Team Providers Care Civil Engineering Designer Name Role Phone Kyle Dodge MD PCP Allergies Comments Active Allergy Reactions Severity Noted Date HALLUCINATIONS Codeine 02/15/2016 Sore joints Nigmfsv-Xms-Zop Reductase Other (See Low 02/10/2016 Inhibitors Comments) [...] Date A-fib 08/24/2016 CAD (coronary artery disease), [place] coronary artery 02/10/2016 DM (diabetes mellitus) type [...] breath 12/06/2017 Outside Orders Central Scheduling after 04/13/2017 Social History Date Tobacco Use [...] ms QTC Calculatio n(Bazett) 456 ms R [place] -7 degrees T [place] 35 degrees Atrial fibrillati on with frequent [...] unspecified type (HCC) Shortness of breath after 04/13/2017 Results * RHYTHM STRIP - SCAN (12/15/2017 [...] CDT) WBC 7.8 3.5 - 10.5 K/L [facility] RBC 4.14 (L) 4.63 - 6.08 M/L [facility] Hemoglobin 11.2 (L) 13.7 - 17.5 GM/DL [facility] Hematocrit 36.7 (L) 40.1 - 51.0 % [facility] MCV 88.6 79.0 - 92.2 fL [facility] MCH 27.1 25.7 - 32.2 pg [facility] MCHC 30.5 (L) 32.3 - 36.5 GM/DL [facility] RDW 14.6 (H) 11.6 - 14.4 % [facility] Platelets 178 150 - 450 K/CU MM [facility] MPV 9.1 (L) 9.4 - 12.4 fL [facility] nRBC 0 0 - 0 /100 WBC [facility] Specimen Blood Performing Organization Address City/State/Zipcode Phone Number [facility] [address] [place] [address] MEDICAL CENTER * Basic metabolic panel (12/14/2017 3:13 AM CDT) Only the most recent of 3 results within the time period is included. Sodium 136 136 - 145 meq/L [facility] Potassium 4.1 3.5 - 5.1 meq/L [facility] Chloride 103 98 - 107 meq/L [facility] CO2 24 22 - 29 meq/L [facility] BUN 18 7 - 21 mg/dL [facility] Creatinine 1.40 (H) 0.57 - 1.25 mg/dL [facility] Glucose 128 (H) 70 - 105 mg/dL [facility] Calcium 8.5 8.4 - 10.2 mg/dL [facility] EGFR 49Comment: ESTIMATED GFR IS mL/min/1.73 sq m [facility] NOT ACCURATE CREATININE [facility] CLEARANCE IN PREDICTING GLOMERULAR FILTRATION RATE. ESTIMATED GFR IS NOT APPLICABLE FOR DIALYSIS PATIENTS. Specimen Blood Performing Organization Address City/[facility]/Zipcode Phone Number [address] [address] [facility] * POC-Glucose meter (12/14/2017 3:01 AM CDT) POC-Glucose Meter 141 (H)Comment: TESTED AT 70 - 110 mg/dL [address] [address] Specimen Blood Performing Organization Address City/[facility]/Zipcode Phone Number [address] [address] [facility] * POC ACTIVATED CLOTTING TIME (12/13/2017 6:10 PM CDT) Only the most recent of 5 results within the time period is included. Activated Clotting Time 125Comment: TESTED AT [facility] sec [address] Specimen Blood Performing Organization Address City/[facility]/Zipcode Phone Number [address] [address] [facility] * Prothrombin time/INR (12/13/2017 8:23 AM CDT) Protime 16.5 (H) 11.7 - 14.7 seconds [facility] INR 1.3 <=5.9 [facility] Specimen Blood Narrative Performed At RECOMMENDED COUMADIN/WARFARIN INR THERAPY RANGES [facility] STANDARD DOSE: 2.0 - 3.0 Includes: PROPHYLAXIS for venous thrombosis, [facility] systemic embolization; TREATMENT for venous thrombosis and/or pulmonary embolus. HIGH RISK: Target INR is 2.5-3.5 for patients with mechanical heart valves. Performing Organization Address City/[facility]/Zipcode Phone Number [facility] [address] [place] [address] [facility] * ECG 12 lead (12/13/2017 8:13 AM CDT) Narrative Performed At Ventricular Rate 78 BPM GE MUSE Atrial Rate 62 BPM QRS Duration 86 ms Q-T Interval 400 ms QTC Calculation(Bazett) 456 ms R [place] -7 degrees T [place] 35 degrees Atrial fibrillation with frequent ventricular-paced complexes Abnormal ECG No previous ECGs available Confirmed by MD FOREMAN JORGE ([id number]) on 12/13/2017 12:13:39 PM Procedure Note Interface, External Ris In - 12/13/2017 12:13 PM CDT Ventricular Rate 78 BPM Atrial Rate 62 BPM QRS Duration 86 ms Q-T Interval 400 ms QTC Calculation(Bazett) 456 ms R [place] -7 degrees T [place] 35 degrees Atrial fibrillation with frequent ventricular-paced complexes Abnormal ECG No previous ECGs available Confirmed by MD FOREMAN JORGE ([id number]) on 12/13/2017 12:13:39 PM Performing Organization Address City/State/Zipcode Phone Number [employer] * CBC with platelet count + automated diff (12/13/2017 7:55 AM CDT) WBC 4.9 3.5 - 10.5 K/L [facility] RBC 4.30 (L) 4.63 - 6.08 M/L [facility] Hemoglobin 11.5 (L) 13.7 - 17.5 GM/DL [facility] Hematocrit 37.7 (L) 40.1 - 51.0 % [facility] MCV 87.7 79.0 - 92.2 fL [facility] MCH 26.7 25.7 - 32.2 pg [facility] MCHC 30.5 (L) 32.3 - 36.5 GM/DL [facility] RDW 14.4 11.6 - 14.4 % [facility] Platelets 171 150 - 450 K/CU MM [facility] MPV 8.8 (L) 9.4 - 12.4 fL [facility] nRBC 0 0 - 0 /100 WBC [facility] % Neutros 75 % [facility] % Lymphs 14 % [facility] % Monos 9 % [facility] % Eos 1 % [facility] % Baso 1 % [facility] # Neutros 3.67 1.78 - 5.38 K/L [facility] # Lymphs 0.70 (L) 1.32 - 3.57 K/L [facility] # Monos 0.43 0.30 - 0.82 K/L [facility] # Eos 0.03 (L) 0.04 - 0.54 K/L [facility] # Baso 0.03 0.01 - 0.08 K/L [facility] Immature 1 0 - 1 % [facility] Specimen Blood Performing Organization Address City/State/Zipcode Phone Number [facility] [address] [place] [address] MEDICAL CENTER * Type and screen, automated (12/13/2017 7:54 AM CDT) ABO/RH AUTOMATED (BEAKER) O POSITIVE [facility] Ab Scrn NEGATIVE [facility] Specimen Blood Performing Organization Address City/State/Zipcode Phone Number [facility] [address] [place], [place] [phone] MEDICAL CENTER * ECHOCARDIOGRAM REPORT - SCAN (12/11/2017 3:21 PM CDT) Narrative Performed At * Transesophageal echo (12/11/2017 8:12 AM CDT) Ejection Fraction [facility] ECHO HEART[facility] MKCKESSON CPA Narrative Performed At Transesophageal Echocardiography Report (SUZETTE) [facility]ART[facility] Demographics [facility]ON [facility] Patient Name EDGARDO LIPSCOMB Date of Study 12/11/2017 VLAD [id number] GenderMale Visit Number [id number] RaceUnknown [id number] Number OP Number Date of Birth1940 Referring Physician Delmy Aldrich Age77 year(s) Lead Former Monty 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 No LA appendage Thrombus visualized. Mftv-iw-ghmavetz aortic regurgitation. Right ventricular systolic pressure is [...] Aortic ValveAortic valve is normal in appearance. Gpsv-vy-ldlvodre aortic regurgitation. Mitral ValveMitral valve is normal in appearance. Mild mitral regurgitation. Tricuspid Jsbx-nx-lrghnebw tricuspid regurgitation. Right ventricular Valve systolic pressure [...] Study 12/11/2017 VLAD Gender Male Visit Number [id number] Race Unknown Room Number OP Number Date of 1940 Referring Physician Delmy Aldrich Age 77 year(s) Lead Former Monty Johnson Interpreting Noam Waite Physician Fellow [...] normal . No LA appendage Thrombus visualized. Ykhn-zh-ukuhglru aortic regurgitation. Right ventricular systolic pressure is [...] Valve Aortic valve is normal in appearance. Lyln-gk-zffikbqr aortic regurgitation. Mitral Valve Mitral valve is normal in appearance. Mild mitral regurgitation. Tricuspid Qefn-ui-ezxsrhuu tricuspid regurgitation. Right ventricular Valve systolic pressure [...] AM CDT) Narrative Performed At Addendum Begins [employer] REPORT STATUS:A Addendum: I agree with the previously described non vascular findings. Signed: Shamar Walters MD Report Verified Date/Time:12/11/2017 14:59:15 Reading Location: [place] [id number] Angio Body Reading Room Addendum Ends FINAL [...] by the interpreting physician using an independent ([employer]) workstation. Please refer to the contrast sheet [...] dictated regarding the non-vascular findings by the Sewer Line Repairer Radiologist. Signed: Delvin Sorto MD Report Verified Date/Time:12/11/2017 08:33:56 Reading Location: [place] [id number] Cardiology MRI Procedure Note Interface, External Ris In - 12/11/2017 3:01 PM CDT Addendum Begins REPORT STATUS:A Addendum: I agree with the previously described non vascular findings. Signed: Shamar Walters MD Report Verified Date/Time: 12/11/2017 14:59:15 Reading Location: [facility] [address] Angio Body Reading Room Addendum [...] by the interpreting physician using an independent ([employer]) workstation. Please refer to the contrast sheet [...] dictated regarding the non-vascular findings by the Sewer Line Repairer Radiologist. Signed: Delvin Sorto MD Report Verified Date/Time: 12/11/2017 08:33:56 Reading Location: [place] [address] Cardiology MRI Performing Organization Address City/[facility] Centercode Phone Number [facility] * POC-Creatinine (12/11/2017 7:31 AM CDT) POC-Creatinine 1.2Comment: [facility] 0.6 - 1.3 mg/dL [address] POC-EGFR 59 mL/min/1.73M2 [facility] Specimen Blood Performing Organization Address City/[facility]/[place] [address] [facility] * PT/aPTT (12/11/2017 6:49 AM CDT) Protime 23.8 (H) 11.7 - 14.7 seconds [facility] INR 2.1 <=5.9 [facility] PTT 56.1 (H) 22.5 - 36.0 seconds [facility] Specimen Blood Narrative Performed At RECOMMENDED COUMADIN/WARFARIN INR THERAPY RANGES [facility] STANDARD DOSE: 2.0 - 3.0 Includes: PROPHYLAXIS for venous thrombosis, [facility] systemic embolization; TREATMENT for venous thrombosis and/or pulmonary embolus. HIGH RISK: Target INR is 2.5-3.5 for patients with mechanical heart valves. Performing Organization Address City/State/Zipcode Phone Number [facility] [address] [place], [place] [phone] [facility] after 04/13/2017 Insurance Payer Benefit Subscriber ID Type Phone Address Plan / Group MEDICARE MEDICARE A xxxxxxxxxx Medicare B BLUE CROSS/BLUE SHIELD BCBS xxxxxxxxxxxx PPO [phone] [address] [place] [address] [place] Advance Directives For more information, please contact: [address] [phone] Date Inactivated Comments Code Status Date Activated [...]
[2018-04-14 02:50] LABS: BASOPHILS % 0.5 % (0.0-1.0); EOSINOPHILS % 0.1 % (0.0-6.0); HEMATOCRIT 24.8 % (38.2-49.6); HEMOGLOBIN 7.8 g/dL (14.0-18.0); LYMPHOCYTES # (AUTO) 1.1 (1.0-3.2); LYMPHOCYTES % 14.5 % (18.0-39.1); MEAN CORPUSCULAR HEMOGLOBIN 26.9 pg (28-32); MEAN CORPUSCULAR HGB CONC 31.5 g/dL (31-35); MEAN CORPUSCULAR VOLUME 85.5 fL (81-99); MONOCYTES # (AUTO) 0.7 (0.2-0.8); MONOCYTES % 8.9 % (4.4-11.3); NEUTROPHILS # (AUTO) 5.5 (2.1-6.9); NEUTROPHILS % 75.3 % (38.7-80.0); PLATELET COUNT 252 x10e3/uL (140-360)
[2018-04-14 03:13] LABS: INR 1.02; PROTHROMBIN TIME 14.3 seconds (11.9-14.5)
[2018-04-14 03:14] LABS: PARTIAL THROMBOPLASTIN TIME 37.9 seconds (23.8-35.5)
[2018-04-14 03:20] LABS: ALBUMIN 3.6 g/dL (3.5-5.0); ALBUMIN/GLOBULIN RATIO 1.4 (0.8-2.0); ANION GAP 14.8 mmol/L (8-16); CALCIUM 8.6 mg/dL (8.4-10.2); CREATININE, SERUM 1.18 mg/dL (0.72-1.25); POTASSIUM 3.8 mmol/L (3.5-5.1)
[2018-04-14 03:32] VITALS: BP 137/92
== END 2018-04-14 03:39 | disposition other institution (70) ==
LOC: ER 01:51
DX: R33.9 Retention of urine, unspecified (principal); N40.1 Benign prostatic hyperplasia with lower urinary tract symptoms; I10 Essential (primary) hypertension; E11.9 Type 2 diabetes mellitus without complications; I48.91 Unspecified atrial fibrillation; I25.10 Atherosclerotic heart disease of native coronary artery without angina pectoris; Z95.5 Presence of coronary angioplasty implant and graft; Z95.0 Presence of cardiac pacemaker
CPT/HCPCS: 36415; 80053; 85025; 85610; 85730; 99284

== ENCOUNTER 2018-05-24 08:39 | Inpatient (IN) | payer MEDICARE, BC ==
[2018-05-24] VITALS (7 sets, daily range): BP systolic 99–116; BP diastolic 72–81
[~2018-05-24] VITALS: Ht 190.5 cm; Wt 97.5 kg
--- OUTSIDE RECORDS SUMMARY | 2018-05-24 08:43 | XMS REPORT | Clinical Summary ---
Author Author RADHA [facility] Address Unknown Phone Unavailable Care Team Providers Care Duck Operator Name Role Phone Kyle Dodge MD PCP Allergies Comments Active Allergy Reactions Severity Noted Date HALLUCINATIONS Codeine 02/15/2016 Sore joints Cjdeuzp-Sam-Bxd Reductase Other (See Low 02/10/2016 Inhibitors Comments) [...] Date A-fib 08/24/2016 CAD (coronary artery disease), [place] coronary artery 02/10/2016 DM (diabetes mellitus) type [...] breath 12/06/2017 Outside Orders Central Scheduling after 05/23/2017 Social History Date Tobacco Use Types Packs/Day [...] ms QTC Calculatio n(Bazett) 456 ms R [place] -7 degrees T [place] 35 degrees Atrial fibrillati on with frequent [...] unspecified type (HCC) Shortness of breath after 05/23/2017 Results * RHYTHM STRIP - SCAN (12/15/2017 [...] CDT) WBC 7.8 3.5 - 10.5 K/L [facility] RBC 4.14 (L) 4.63 - 6.08 M/L [facility] Hemoglobin 11.2 (L) 13.7 - 17.5 GM/DL [facility] Hematocrit 36.7 (L) 40.1 - 51.0 % [facility] MCV 88.6 79.0 - 92.2 fL [facility] MCH 27.1 25.7 - 32.2 pg [facility] MCHC 30.5 (L) 32.3 - 36.5 GM/DL [facility] RDW 14.6 (H) 11.6 - 14.4 % [facility] Platelets 178 150 - 450 K/CU MM [facility] MPV 9.1 (L) 9.4 - 12.4 fL [facility] nRBC 0 0 - 0 /100 WBC [facility] Specimen Blood Performing Organization Address City/State/Zipcode Phone Number [facility] [address] [place] [address] MEDICAL CENTER * Basic metabolic panel (12/14/2017 3:13 AM CDT) Only the most recent of 3 results within the time period is included. Sodium 136 136 - 145 meq/L [facility] Potassium 4.1 3.5 - 5.1 meq/L [facility] Chloride 103 98 - 107 meq/L [facility] CO2 24 22 - 29 meq/L [facility] BUN 18 7 - 21 mg/dL [facility] Creatinine 1.40 (H) 0.57 - 1.25 mg/dL [facility] Glucose 128 (H) 70 - 105 mg/dL [facility] Calcium 8.5 8.4 - 10.2 mg/dL [facility] EGFR 49Comment: ESTIMATED GFR IS mL/min/1.73 sq m [facility] NOT ACCURATE CREATININE [facility] CLEARANCE IN PREDICTING GLOMERULAR FILTRATION RATE. ESTIMATED GFR IS NOT APPLICABLE FOR DIALYSIS PATIENTS. Specimen Blood Performing Organization Address City/[facility]/Zipcode Phone Number [address] [address] [facility] * POC-Glucose meter (12/14/2017 3:01 AM CDT) POC-Glucose Meter 141 (H)Comment: TESTED AT 70 - 110 mg/dL [address] [address] Specimen Blood Performing Organization Address City/[facility]/Zipcode Phone Number [address] [address] [facility] * POC ACTIVATED CLOTTING TIME (12/13/2017 6:10 PM CDT) Only the most recent of 5 results within the time period is included. Activated Clotting Time 125Comment: TESTED AT [facility] sec [address] Specimen Blood Performing Organization Address City/[facility]/Zipcode Phone Number [address] [address] [facility] * Prothrombin time/INR (12/13/2017 8:23 AM CDT) Protime 16.5 (H) 11.7 - 14.7 seconds [facility] INR 1.3 <=5.9 [facility] Specimen Blood Narrative Performed At RECOMMENDED COUMADIN/WARFARIN INR THERAPY RANGES [facility] STANDARD DOSE: 2.0 - 3.0 Includes: PROPHYLAXIS for venous thrombosis, [facility] systemic embolization; TREATMENT for venous thrombosis and/or pulmonary embolus. HIGH RISK: Target INR is 2.5-3.5 for patients with mechanical heart valves. Performing Organization Address City/[facility]/Zipcode Phone Number [facility] [address] [place] [address] [facility] * ECG 12 lead (12/13/2017 8:13 AM CDT) Narrative Performed At Ventricular Rate 78 BPM GE MUSE Atrial Rate 62 BPM QRS Duration 86 ms Q-T Interval 400 ms QTC Calculation(Bazett) 456 ms R [place] -7 degrees T [place] 35 degrees Atrial fibrillation with frequent ventricular-paced complexes Abnormal ECG No previous ECGs available Confirmed by MD FOREMAN JORGE ([id number]) on 12/13/2017 12:13:39 PM Procedure Note Interface, External Ris In - 12/13/2017 12:13 PM CDT Ventricular Rate 78 BPM Atrial Rate 62 BPM QRS Duration 86 ms Q-T Interval 400 ms QTC Calculation(Bazett) 456 ms R [place] -7 degrees T [place] 35 degrees Atrial fibrillation with frequent ventricular-paced complexes Abnormal ECG No previous ECGs available Confirmed by MD FOREMAN JORGE ([id number]) on 12/13/2017 12:13:39 PM Performing Organization Address City/State/Zipcode Phone Number [employer] * CBC with platelet count + automated diff (12/13/2017 7:55 AM CDT) WBC 4.9 3.5 - 10.5 K/L [facility] RBC 4.30 (L) 4.63 - 6.08 M/L [facility] Hemoglobin 11.5 (L) 13.7 - 17.5 GM/DL [facility] Hematocrit 37.7 (L) 40.1 - 51.0 % [facility] MCV 87.7 79.0 - 92.2 fL [facility] MCH 26.7 25.7 - 32.2 pg [facility] MCHC 30.5 (L) 32.3 - 36.5 GM/DL [facility] RDW 14.4 11.6 - 14.4 % [facility] Platelets 171 150 - 450 K/CU MM [facility] MPV 8.8 (L) 9.4 - 12.4 fL [facility] nRBC 0 0 - 0 /100 WBC [facility] % Neutros 75 % [facility] % Lymphs 14 % [facility] % Monos 9 % [facility] % Eos 1 % [facility] % Baso 1 % [facility] # Neutros 3.67 1.78 - 5.38 K/L [facility] # Lymphs 0.70 (L) 1.32 - 3.57 K/L [facility] # Monos 0.43 0.30 - 0.82 K/L [facility] # Eos 0.03 (L) 0.04 - 0.54 K/L [facility] # Baso 0.03 0.01 - 0.08 K/L [facility] Immature 1 0 - 1 % [facility] Specimen Blood Performing Organization Address City/State/Zipcode Phone Number [facility] [address] [place] [address] MEDICAL CENTER * Type and screen, automated (12/13/2017 7:54 AM CDT) ABO/RH AUTOMATED (BEAKER) O POSITIVE [facility] Ab Scrn NEGATIVE [facility] Specimen Blood Performing Organization Address City/State/Zipcode Phone Number [facility] [address] [place], [place] [phone] MEDICAL CENTER * ECHOCARDIOGRAM REPORT - SCAN (12/11/2017 3:21 PM CDT) Narrative Performed At * Transesophageal echo (12/11/2017 8:12 AM CDT) Ejection Fraction [facility] ECHO HEARTLAB MKCKESSON CPA Narrative Performed At Transesophageal Echocardiography Report (SUZETTE) [facility] ECHO [facility]ART[facility] Demographics [facility] Patient Name EDGARDO LIPSCOMB Date of Study 12/11/2017 VLAD [id number] GenderMale Visit Number [id number] RaceUnknown [id number] Number OP Number Date of Birth1940 Referring Physician Delmy Aldrich Age77 year(s) Steam Bone Press Tender Monty 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 No LA appendage Thrombus visualized. Bmjy-xz-isjfjnxf aortic regurgitation. Right ventricular systolic pressure is [...] Aortic ValveAortic valve is normal in appearance. Kris-rn-blyfavwr aortic regurgitation. Mitral ValveMitral valve is normal in appearance. Mild mitral regurgitation. Tricuspid Mvsq-dk-phihxzho tricuspid regurgitation. Right ventricular Valve systolic pressure [...] Study 12/11/2017 VLAD Gender Male Visit Number [id number] Race Unknown Room Number OP Number Date of 1940 Referring Physician Delmy Aldrich Age 77 year(s) Steam Bone Press Tender Monty Johnson Interpreting Noam Waite Physician Fellow [...] normal . No LA appendage Thrombus visualized. Jecm-nm-lwutkpnu aortic regurgitation. Right ventricular systolic pressure is [...] Valve Aortic valve is normal in appearance. Ldbi-qs-oevllubf aortic regurgitation. Mitral Valve Mitral valve is normal in appearance. Mild mitral regurgitation. Tricuspid Uhsm-yg-jdqpfypc tricuspid regurgitation. Right ventricular Valve systolic pressure [...] AM CDT) Narrative Performed At Addendum Begins [employer] REPORT STATUS:A Addendum: I agree with the previously described non vascular findings. Signed: Shamar Walters MD Report Verified Date/Time:12/11/2017 14:59:15 Reading Location: [place] [id number] Angio Body Reading Room Addendum Ends FINAL [...] by the interpreting physician using an independent ([employer]) workstation. Please refer to the contrast sheet [...] dictated regarding the non-vascular findings by the Fire Marshal Radiologist. Signed: Delvin Sorto MD Report Verified Date/Time:12/11/2017 08:33:56 Reading Location: [place] [id number] Cardiology MRI Procedure Note Interface, External Ris In - 12/11/2017 3:01 PM CDT Addendum Begins REPORT STATUS:A Addendum: I agree with the previously described non vascular findings. Signed: Shamar Walters MD Report Verified Date/Time: 12/11/2017 14:59:15 Reading Location: [facility] P048 Angio Body Reading Room Addendum [...] by the interpreting physician using an independent ([employer]) workstation. Please refer to the contrast sheet [...] dictated regarding the non-vascular findings by the Fire Marshal Radiologist. Signed: Delvin Sorto MD Report Verified Date/Time: 12/11/2017 08:33:56 Reading Location: [place] [address] Cardiology MRI Performing Organization Address City/[facility]code Phone Number [facility] * POC-Creatinine (12/11/2017 7:31 AM CDT) POC-Creatinine 1.2Comment: [facility] 0[facility] - 1.[facility] mg/dL [address] POC-EGFR 59 mL/min/1.73M2 [facility] Specimen Blood Performing Organization Address City/[facility]/[place] [address] [facility] * PT/aPTT (12/11/2017 6:49 AM CDT) Protime 23.8 (H) 11.7 - 14.7 seconds [facility] INR 2.1 <=5.9 [facility] PTT 56.1 (H) 22.5 - 36.0 seconds [facility] Specimen Blood Narrative Performed At RECOMMENDED COUMADIN/WARFARIN INR THERAPY RANGES [facility] STANDARD DOSE: 2.0 - 3.0 Includes: PROPHYLAXIS for venous thrombosis, [facility] systemic embolization; TREATMENT for venous thrombosis and/or pulmonary embolus. HIGH RISK: Target INR is 2.5-3.5 for patients with mechanical heart valves. Performing Organization Address City/State/Zipcode Phone Number [facility] [address], [place] [phone] [facility] after 05/23/2017 Insurance Payer Benefit Subscriber ID Type Phone Address Plan / Group MEDICARE MEDICARE A xxxxxxxxxx Medicare B BLUE CROSS/BLUE SHIELD BCBS xxxxxxxxxxxx PPO [phone] [address] [place] [address] [place] Advance Directives For more information, please contact: [address] [phone] Date Inactivated Comments Code Status Date Activated [...]
--- OUTSIDE RECORDS SUMMARY | 2018-05-24 08:43 | XMS REPORT | Clinical Summary ---
Author Author [facility] Organization [facility] Address Unknown Phone Unavailable Care Team Providers Care Credit Card Interviewer Name Role Phone Kyle Dodge MD PCP Allergies Comments Active Allergy Reactions Severity Noted Date hallucinations Codeine 03/26/2018 Sore joints Gwjkyoi-Rvy-Zwm Reductase Other (See Low 02/10/2016 Inhibitors Comments) [...] 0 capsule by mouth daily. Active omega 5-pam-fum-fish oil Take 1 0 (FISH OIL) 100-160-1,000 [...] (six) hours as needed for moderate pain. 04/04/2018 Discontinued clopidogrel (PLAVIX) 75 Take 75 [...] bladder spasms for up to 3 days. 04/15/2018 phenazopyridine Take 200 mg 0 (PYRIDIUM) 200 MG tablet by mouth 8 daily. For 10 days 04/05/18-01/2304/13/2018 Discontinued docusate sodium (COLACE) Take 1 20 capsule 0 100 MG capsule (100 8 capsuleIndications: mg total) by Urinary retention mouth 2 (two) times a day for 10 days. 04/23/2018 traMADol (ULTRAM) 50 mg Take 1 tablet 30 tablet 0 tabletIndications: (50 mg total) 8 Urinary retention by mouth every 6 (six) hours as needed for moderate pain for up to 10 days. 04/13/2018 Discontinued nitrofurantoin, Take 1 [...] (two) times a day for 10 days. 04/23/2018 docusate sodium (COLACE) Take 1 20 capsule 0 100 MG capsule (100 8 capsuleIndications: mg total) by Urinary retention mouth 2 (two) times a day for 10 days. 04/20/2018 nitrofurantoin, Take 1 14 capsule 0 macrocrystal-monohydrate, capsule (100 8 (MACROBID) 100 MG capsule mg total) by mouth 2 (two) times a day for 7 days. Active Problems Problem Noted Date Urinary retention 04/11/2018 Enlarged prostate with urinary obstruction 04/03/2018 Encounters Care Team Description Date Type Specialty Mary Griffith RN 04/15/2018 Patient Quality Outreach Rene Riley MD Lewitton, Michael, MD Enlarged prostate with urinary obstruction (Primary Dx); Urinary retention 04/14/2018 [facility] General Internal Medicine - Encounter 04/15/2018 Petros Corado MD 04/14/2018 Orders Only Urology N/A 04/14/2018 Intake Access Eliel Barrera MD Goldfarb, Richard A., MD Urinary retention (Primary Dx); Chronic atrial fibrillation (HCC) 04/11/2018 [facility] General Internal Medicine - Encounter 04/13/2018 Areli Cruz APRN 04/03/2018 Anesthesia Urology Event Rene Riley MD CYSTOSCOPY, WITH TURP 04/03/2018 Surgery Urology Rene Riley MD Enlarged prostate with urinary obstruction 04/03/2018 [facility] General Internal Medicine - Encounter 04/04/2018 Rene Riley MD Preop examination (Primary Dx) 03/27/2018 Pre-Admit Pre-Admission Testing Testing Appointment after 05/23/2017 Social History Date Tobacco Use [...] Vital Signs Time Taken Vital Sign Reading 04/15/2018 6:28 PM [facility] Blood Pressure 158/95 04/15/2018 6:28 PM [facility] Pulse 84 04/15/2018 3:46 PM [facility] Temperature 36.6 C (97.9 F) 04/15/2018 3:46 PM [facility] Respiratory Rate 18 04/15/2018 3:46 PM [facility] Oxygen Saturation 92% - Inhaled Oxygen - Concentration 04/03/2018 7:32 AM [facility] Weight 96.6 kg (213 lb) 04/11/2018 9:50 AM [facility] Height 190.5 cm (6' 3") 04/03/2018 7:32 AM [facility] Body Mass Index 26.62 Plan of Treatment Health Maintenance Due Date Last Done Comments SHINGLES VACCINES (1 of 1992 2) PNEUMOCOCCAL 2007 POLYSACCHARIDE VACCINE AGE 65 AND OVER PNEUMOCOCCAL-13 2007 INFLUENZA VACCINE 12/06/2017 Procedures Comments Procedure Name Priority Date/Time Associated Diagnosis HEMOGLOBIN & HEMATOCRIT STAT 04/15/2018 5:30 PM [facility] POC GLUCOSE Routine 04/15/2018 12:40 PM [facility] POC GLUCOSE Routine 04/15/2018 7:29 AM [facility] CBC HEMOGRAM Routine 04/15/2018 5:00 AM [facility] ESTIMATED GFR Routine 04/15/2018 4:00 AM [facility] BASIC METABOLIC PANEL Routine 04/15/2018 4:00 AM [facility] POC GLUCOSE Routine 04/14/2018 9:00 PM [facility] POC GLUCOSE Routine 04/14/2018 4:58 PM [facility] POC GLUCOSE Routine 04/14/2018 1:07 PM [facility] PREPARE RBC Timed 04/14/2018 8:55 AM [facility] TYPE AND SCREEN Routine 04/14/2018 8:55 AM [facility] POC GLUCOSE Routine 04/14/2018 8:48 AM [facility] HC COMPLETE BLD COUNT Routine 04/14/2018 W/AUTO DIFF 5:15 AM [facility] ESTIMATED GFR Routine 04/14/2018 4:59 AM [facility] BASIC METABOLIC PANEL Routine 04/14/2018 4:59 AM [facility] POC GLUCOSE Routine 04/13/2018 11:26 AM [facility] ESTIMATED GFR Routine 04/13/2018 4:00 AM [facility] BASIC METABOLIC PANEL Routine 04/13/2018 4:00 AM [facility] HC COMPLETE BLD COUNT Routine 04/13/2018 W/AUTO DIFF 4:00 AM [facility] HEMOGLOBIN & HEMATOCRIT STAT 04/12/2018 4:45 PM [facility] HC COMPLETE BLD COUNT Routine 04/12/2018 W/AUTO DIFF 5:00 AM [facility] ESTIMATED GFR Routine 04/12/2018 4:00 AM [facility] BASIC METABOLIC PANEL Routine 04/12/2018 4:00 AM [facility] PREPARE RBC Timed 04/11/2018 12:30 PM [facility] ESTIMATED GFR STAT 04/11/2018 12:30 PM [facility] PARTIAL THROMBOPLASTIN STAT 04/11/2018 TIME (PTT) 12:30 PM [facility] PROTHROMBIN TIME WITH INR STAT 04/11/2018 12:30 PM [facility] COMPREHENSIVE METABOLIC STAT 04/11/2018 PANEL 12:30 PM [facility] TYPE AND SCREEN Routine 04/11/2018 12:30 PM [facility] HC COMPLETE BLD COUNT STAT 04/11/2018 W/AUTO DIFF 12:30 PM [facility] ECG 12-LEAD STAT 04/11/2018 9:53 AM [facility] POC GLUCOSE Routine 04/04/2018 11:37 AM [facility] POC GLUCOSE Routine 04/04/2018 7:27 AM [facility] POC GLUCOSE Routine 04/03/2018 9:39 PM [facility] POC GLUCOSE Routine 04/03/2018 6:48 PM [facility] POC GLUCOSE Routine 04/03/2018 5:06 PM [facility] POC GLUCOSE Routine 04/03/2018 2:12 PM [facility] SURGICAL PATHOLOGY Routine 04/03/2018 REQUEST 11:15 AM [facility] POC GLUCOSE Routine 04/03/2018 10:49 AM [facility] AL AN ELECTIVE Routine 04/03/[address] SU[address]IC AIRWAY 9:19 AM [facility] Procedure Note - Kristin Kong CRNA - 04/03/2018 9:19 AM [facility] ANESTHESIA INTUBATION Date/Time: 04/03/2018 9:19 AM Performed [...] TURP 04/03/2018 Enlarged prostate with 9:00 AM [facility] urinary obstruction Case Notes REQ 0900 START, POSSIBLE EXTENDED RECOVERY Special Needs REQ 0900 START, POSSIBLE EXTENDED RECOVERY POC GLUCOSE Routine 04/03/2018 7:09 AM [facility] CBC HEMOGRAM Routine 03/27/2018 Preop examination 3:30 PM [facility] ECG PRE/POST OP Routine 03/27/2018 Preop examination 2:45 PM [facility] ESTIMATED GFR Routine 03/27/2018 2:37 PM [facility] BASIC METABOLIC PANEL Routine 03/27/2018 Preop examination 2:37 PM [facility] HEMOGLOBIN A1C Routine 03/27/2018 Preop examination 2:37 PM [facility] TYPE AND SCREEN Routine 03/27/2018 Preop examination 2:37 PM [facility] URINALYSIS SCREEN AND Routine 03/27/2018 Preop examination MICROSCOPY, WITH REFLEX 2:37 PM [facility] TO CULTURE GRAM STAIN Routine 03/27/2018 2:37 PM [facility] URINE CULTURE Routine 03/27/2018 2:37 PM [facility] after 05/23/2017 Results * Hemoglobin & hematocrit (04/15/2018 5:30 PM [facility]) Only the most recent of 2 results within the time period is included. HGB 10.6 (L) 14.0 - 18.0 g/dL [facility] HCT 33.2 (L) 41.0 - 51.0 % [facility] Specimen Blood Performing Organization Address City/State/Zipcode Phone Number [facility] DEPARTMENT OF [address] [place] [address] PATHOLOGY AND GENOMIC MEDICINE [address] * POC glucose (04/15/2018 12:40 PM [facility]) Only the most recent of 15 results within the time period is included. POC glucose 138 (H) 65 - 99 mg/dL [facility] Comment: [facility] Notified RN Meter ID: [id number] Appraiser Real Estate: Sheriff Chuy Nieto Performing Organization Address City/[facility]/Zipcode Phone Number [facility] DEPARTMENT OF [address] [place] [address] PATHOLOGY AND GENOMIC MEDICINE [address] * CBC hemogram (04/15/2018 5:00 AM [facility]) Only the most recent of 2 results within the time period is included. WBC 4.31 (L) 4.50 - 11.00 k/uL [facility] RBC 2.69 (L) 4.40 - 6.00 m/uL [facility] HGB 7.2 (L) 14.0 - 18.0 g/dL [facility] HCT 22.9 (L) 41.0 - 51.0 % [facility] MCV 85.1 82.0 - 100.0 fL [facility] MCH 26.8 (L) 27.0 - 34.0 pg [facility] MCHC 31.4 31.0 - 37.0 g/dL [facility] RDW - SD 46.1 37.0 - 55.0 fL [facility] MPV 9.9 8.8 - 13.2 fL [facility] Platelet count 271 150 - 400 k/uL [facility] Nucleated RBC 0.00 /100 WBC [facility] Specimen Blood Performing Organization Address City/[facility]/Zipcode Phone Number [facility] DEPARTMENT OF [address] [place] [address] PATHOLOGY AND GENOMIC MEDICINE [address] * Estimated GFR (04/15/2018 4:00 AM [facility]) Only the most recent of 6 results within the time period is included. Estimated GFR 79 mL/min/1.73 m2 [facility] Comment: HOSPITAL CatergoryUnitsInte rpretation G1 >=90 Normal or high G2 60-89Mildly decreased [id number] Mildly to moderately decreased [id number] Moderately to severely decreased G4 15-29Severely decreased G5 <15Kidney failure The eGFR was calculated using the Chronic Kidney Disease Epidemiology Collaboration (CKD-EPI) equation. Interpretation is based on recommendations of the National Kidney Foundation-Kidney Disease Outcomes Quality Initiative (NKF-KDOQI) published in 2014. Specimen Plasma specimen Performing Organization Address City/State/Zipcode Phone Number [facility] [place] [address] PATHOLOGY AND GENOMIC MEDICINE [address] * Basic metabolic panel (04/15/2018 4:00 AM [facility]) Only the most recent of 5 results within the time period is included. Sodium 142 135 - 148 mEq/L [facility] Potassium 3.9 3.5 - 5.0 mEq/L [facility] Chloride 105 98 - 112 mEq/L [facility] CO2 25 24 - 31 mEq/L [facility] Anion gap 12@ANIO 7 - 15 mEq/L [facility] BUN 12 8 - 23 mg/dL [facility] Creatinine 0.93 0.70 - 1.20 mg/dL [facility] Glucose 102 (H) 65 - 99 mg/dL [facility] Calcium 8.5 (L) 8.8 - 10.2 mg/dL [facility] Specimen Plasma specimen Performing Organization Address [facility] Phone Number [facility] [place] [address] PATHOLOGY AND GENOMIC MEDICINE [address] * Prepare RBC, 2 Units (04/14/2018 8:55 AM [facility]) Only the most recent of 2 results within the time period is included. Product name Red Blood Cells -1, Leukored [facility] Unit number [id number] [facility] Product code [id number] [facility] Dispense status Transfused [facility] Blood expiration date [facility] Blood type code 5100 [facility] Blood type O POSITIVE [facility] Product name Red Blood Cells -1, Leukored [facility] Unit number [id number] [facility] Product code [id number] [facility] Dispense status Transfused [facility] Blood expiration date [facility] Blood type code 5100 [facility] Blood type O POSITIVE [facility] Performing Organization Address City/State/[facility] Phone Number [facility] DEPARTMENT OF [address] [place] [address] PATHOLOGY AND GENOMIC MEDICINE [facility] [address] [place] [address] * Type and screen (04/14/2018 8:55 AM [facility]) Only the most recent of 3 results within the time period is included. ABO grouping O [facility] Rh type POS [facility] Antibody screen (gel) NEG [facility] Specimen Blood Performing Organization Address City/State/Zipcode Phone Number [facility] DEPARTMENT OF [address] [place] [address] PATHOLOGY AND GENOMIC MEDICINE [address] * CBC with platelet and differential (04/14/2018 5:15 AM [facility]) Only the most recent of 4 results within the time period is included. WBC 5.45 4.50 - 11.00 k/uL [facility] RBC 2.69 (L) 4.40 - 6.00 m/uL [facility] HGB 7.3 (L) 14.0 - 18.0 g/dL [facility] HCT 23.2 (L) 41.0 - 51.0 % [facility] MCV 86.2 82.0 - 100.0 fL [facility] MCH 27.1 27.0 - 34.0 pg [facility] MCHC 31.5 31.0 - 37.0 g/dL [facility] RDW - SD 47.5 37.0 - 55.0 fL [facility] MPV 9.4 8.8 - 13.2 fL [facility] Platelet count 213 150 - 400 k/uL [facility] Nucleated RBC 0.00 /100 WBC [facility] Neutrophils 75.2 (H) 39.0 - 69.0 % [facility] Lymphocytes 14.9 (L) 25.0 - 45.0 % [facility] Monocytes 8.3 0.0 - 10.0 % [facility] Eosinophils 0.4 0.0 - 5.0 % [facility] Basophils 0.6 0.0 - 1.0 % [facility] Immature granulocytes 0.6Comment: "Immature 0.0 - 1.0 % [facility] granulocytes" (promyelocytes, HOSPITAL myelocytes, metamyelocytes) Specimen Blood Performing Organization Address City/State/Zipcode Phone Number [facility] DEPARTMENT OF [address] [place] [address] PATHOLOGY AND GENOMIC MEDICINE [address] * Partial thromboplastin time, activated (04/11/2018 12:30 PM [facility]) PTT 39.4 (H) 23.0 - 36.0 sec [facility] Comment: HOSPITAL PTT therapeutic range for unfractionated heparin is 61.0-112.0 seconds which corresponds to Anti-Xa 0.3-0.7 U/ml. Specimen Blood Performing Organization Address City/State/Zipcode Phone Number [facility] [place] [address] PATHOLOGY AND GENOMIC MEDICINE [address] * Prothrombin time with INR (04/11/2018 12:30 PM [facility]) Prothrombin time 19.8 (H) 11.5 - 14.5 sec [facility] INR 1.7 [facility] Comment: HOSPITAL The International Normalized Ratio (INR) is a therapeutic monitoring tool for patients who are stable on oral anticoagulant therapy. An INR of 2.0-3.0 is suggested for deep vein thrombosis/pulmonary embolism. Specimen Blood Performing Organization Address City/[facility]/Zipcode Phone Number [facility] [place] [address] PATHOLOGY AND GENOMIC MEDICINE [address] * Comprehensive metabolic panel (04/11/2018 12:30 PM [facility]) Sodium 141 135 - 148 mEq/L [facility] Potassium 4.4 3.5 - 5.0 mEq/L [facility] Chloride 102 98 - 112 mEq/L [facility] CO2 25 24 - 31 mEq/L [facility] Anion gap 14@ANIO 7 - 15 mEq/L [facility] BUN 12 8 - 23 mg/dL [facility] Creatinine 1.02 0.70 - 1.20 mg/dL [facility] Glucose 123 (H) 65 - 99 mg/dL [facility] Calcium 8.7 (L) 8.8 - 10.2 mg/dL [facility] Protein 5.9 (L) 6.3 - 8.3 g/dL [facility] Comment: HOSPITAL Gem 4.6-7.0 g/dL 1 week 4.4-7.6 g/dL 7 months-1year 5.1-7.3 g/dL 1-2 years5.6-7 .5 g/dL >3 years6.0-8 .0 g/dL 18-150 6.3-8.3 g/dL Albumin 3.4 (L) 3.5 - 5.0 g/dL [facility] A/G ratio 1.4 0.7 - 3.8 [facility] Alkaline phosphatase 80 40 - 129 U/L [facility] AST 32 10 - 50 U/L [facility] ALT 52 (H) 5 - 50 U/L [facility] Total bilirubin 0.8 0.0 - 1.2 mg/dL [facility] Specimen Plasma specimen Performing Organization Address City/State/[facility] Phone Number [facility] DEPARTMENT OF [address] [place] [address] PATHOLOGY AND GENOMIC MEDICINE [address] * ECG 12 lead (04/11/2018 9:53 AM [facility]) Ventricular rate 144 [facility] Atrial rate 141 [facility] QRSD interval 76 [facility] QT interval 264 [facility] QTC interval 408 [facility] QRS axis 1 -19 [facility] T wave axis 89 [facility] EKG impression Atrial fibrillation with rapid [facility] ventricular response-Nonspecific ST and T wave abnormality-Abnormal ECG-In automated comparison with ECG of 27-MAR-2018 14:45,-Vent. rate has increased BY50 BPM- Narrative Performed At Performing Organization Address City/State/Zipcode Phone Number [facility] [place] [phone] [place] [address] * Surgical pathology request (04/03/2018 11:15 AM [facility]) [facility] DEPARTMENT OF PATHOLOGY AND GENOMIC MEDICINE Surgical pathology report See link below for PDF Lab [facility] DEPARTMENT OF Report PATHOLOGY AND GENOMIC MEDICINE Result status This is Final Report for [facility] DEPARTMENT OF [id number] PATHOLOGY AND GENOMIC MEDICINE Performing Organization Address City/State/Zipcode Phone Number [facility] DEPARTMENT OF [address] [place] [phone] PATHOLOGY AND GENOMIC MEDICINE * ECG Pre/Post Op (03/27/2018 2:45 PM [facility]) Ventricular rate 94 [facility] Atrial rate 159 [facility] QRSD interval 88 [facility] QT interval 342 [facility] QTC interval 427 [facility] QRS axis 1 3 [facility] T wave axis 77 [facility] EKG impression Atrial [facility] fibrillation-Nonspecific ST and T wave abnormality , probably digitalis effect-Abnormal ECG-No previous ECGs available- Narrative Performed At Performing Organization Address City/[facility] [place] [address] * Urinalysis screen and microscopy, with reflex to culture (03/27/2018 2:37 PM [facility]) Specimen site Clean catch [facility] Color, UA Red [facility] Appearance, UA Cloudy [facility] Specific gravity, UA 1.017 1.001 - 1.035 [facility] pH, UA 5.0 5.0 - 8.5 [facility] Protein, UA 2+ (A) Negative [facility] Glucose, UA Negative Negative [facility] Ketones, UA Negative Negative [facility] Bilirubin, UA Negative Negative [facility] Blood, UA Large (A) Negative [facility] Nitrite, UA Negative Negative [facility] Urobilinogen, UA <2.0 <2.0 [facility] Leukocyte esterase, UA Moderate (A) Negative [facility] WBC, UA 96 (H) 0 - 1 /HPF [facility] RBC, UA >180 (H) 0 - 5 /HPF [facility] Bacteria, UA Few None seen [facility] Yeast, UA None seen [facility] Yeast with pseudohyphae, None seen [facility] Hyaline casts, UA 12 /LPF [facility] Specimen Urine Performing Organization Address City/State/Zipcode Phone Number [facility] DEPARTMENT OF [address] [place] [address] PATHOLOGY AND GENOMIC MEDICINE [address] * Gram stain (03/27/2018 2:37 PM [facility]) Gram stain result Many Gram positive rods [facility] Many Gram positive cocci in HOSPITAL pairs Few WBC's Comment: Specimen Information Specimen Source: Urine Specimen Site: Clean catch Specimen Urine Performing Organization Address City/[facility] Phone Number [facility] DEPARTMENT OF [address] [place] [address] PATHOLOGY AND GENOMIC MEDICINE [address] * Urine culture (03/27/2018 2:37 PM [facility]) Urine culture isolate Enterococcus faecalis [facility] >10-5 cfu/ml [facility] The performance characteristics of this assay on this isolate were validated by the Microbiology Laboratory at [facility].This source has not been approved by the [...] mcg/mL: Susceptible Enterococcus faecalis Performing Organization Address City/[facility] Phone Number [facility] DEPARTMENT OF [address] [place] [address] PATHOLOGY AND GENOMIC MEDICINE [address] * Hemoglobin A1c (03/27/2018 2:37 PM [facility]) Hemoglobin A1C 6.3 (H) 4.0 - 5.6 % [facility] Comment: HOSPITAL HbA1c cutoffs for diagnosing diabetes: 4.0% - 5.6%=normal 5.7% - 6.4%=increased risk for diabetes (prediabetes) >=6.5%=diabetes Goals for glycemic control (ADA 2016) < 7.0%Target for non adults with diabetes. More or less stringent targets may be appropriate for individual patients. <7.5% Target for Children and adolescents with type 1 diabetes. Specimen Blood Performing Organization Address City/State/Zipcode Phone Number [facility] DEPARTMENT OF [address] [place] [address] PATHOLOGY AND GENOMIC MEDICINE [facility] [address] [place] [address] HOSPITAL after 05/23/2017 Insurance Payer Benefit Subscriber ID Type Phone Address Plan / Group MEDICARE MEDICARE xxxxxxxxxxx Medicare [place], [place] PART A AND B BCBS BCBS xxxxxxxxxxxx Indemnity PAR/TRAD PLAN Advance Directives Patient has advance care planning documents on file. For more information, bryce smith contact: [facility] [address] [place] [phone]
--- NOTE | 2018-05-24 09:10 | NUR ---
DR. LUGO AT PT'S BEDSIDE PERFORMING NASAL PACKING IN R NARE. NO ACUTE DISTRESS NOTED.
[2018-05-24] MEDS ORDERED: PHENYLEPHRINE HCL 0.5% NASAL 15 ML BTL SCH (09:15)
[2018-05-24] MEDS ORDERED: SODIUM CHLORIDE 0.9% 500ML 500 ML IV ONE (10:00)
[2018-05-24] MEDS ORDERED: PHYTONADIONE 10 MG/ML AMP SQ ONE (10:00)
[2018-05-24 10:42] LABS: BASOPHILS % 0.5 % (0.0-1.0); EOSINOPHILS % 0.2 % (0.0-6.0); HEMATOCRIT 28.3 % (38.2-49.6); LYMPHOCYTES # (AUTO) 0.7 (1.0-3.2); LYMPHOCYTES % 11.9 % (18.0-39.1); MEAN CORPUSCULAR HEMOGLOBIN 25.5 pg (28-32); MEAN CORPUSCULAR VOLUME 88.2 fL (81-99); MONOCYTES # (AUTO) 0.4 (0.2-0.8); MONOCYTES % 6.4 % (4.4-11.3); NEUTROPHILS # (AUTO) 4.9 (2.1-6.9); NEUTROPHILS % 80.3 % (38.7-80.0); PLATELET COUNT 211 x10e3/uL (140-360); RED BLOOD COUNT 3.21 x10e6/uL (4.3-5.7); RED CELL DISTRIBUTION WIDTH 18.5 % (11.7-14.4)
[2018-05-24 10:49] LABS: HEMOGLOBIN 8.2 g/dL (14.0-18.0)
[2018-05-24 11:03] LABS: ALANINE AMINOTRANSFERASE 22 IU/L (0-55); ALBUMIN 2.9 g/dL (3.5-5.0); ALKALINE PHOSPHATASE 78 IU/L (40-150); ANION GAP 9.7 mmol/L (8-16); BLOOD UREA NITROGEN 26 mg/dL (7-26); BUN/CREATININE RATIO 24 (6-25); CALCIUM 8.7 mg/dL (8.4-10.2); CARBON DIOXIDE 27 mmol/L (22-29); CHLORIDE 104 mmol/L (98-107); CREATINE KINASE 58 IU/L (30-200); CREATININE, SERUM 1.07 mg/dL (0.72-1.25); EST GLOMERULAR FILTRATION RATE > 60 ML/MIN (60-); GLUCOSE 119 mg/dL (74-118); POTASSIUM 4.7 mmol/L (3.5-5.1); SODIUM 136 mmol/L (136-145)
[2018-05-24 11:09] LABS: INR 1.42; PROTHROMBIN TIME 18.5 seconds (11.9-14.5)
[2018-05-24] MEDS ORDERED: METOPROLOL SUCC25 MG PO (11:47)
[2018-05-24] MEDS ORDERED: MIDODRINE HCL2.5 MG PO (11:47)
[2018-05-24] MEDS ORDERED: ELIQUIS PO (11:47)
--- OUTSIDE RECORDS SUMMARY | 2018-05-24 12:15 | XMS REPORT | Clinical Summary ---
Author Author [facility] Address Unknown Phone Unavailable Care Team Providers Care Adjunct Mathematics Instructor Name Role Phone Kyle Dodge MD PCP Allergies Comments Active Allergy Reactions Severity Noted Date HALLUCINATIONS Codeine 02/15/2016 Sore joints Bzujxxk-Pnp-Ecx Reductase Other (See Low 02/10/2016 Inhibitors Comments) [...] Date A-fib 08/24/2016 CAD (coronary artery disease), [place] coronary artery 02/10/2016 DM (diabetes mellitus) [...] ms QTC Calculatio n(Bazett) 456 ms R [place] -7 degrees T [place] 35 degrees Atrial fibrillati on with frequent [...] CDT) WBC 7.8 3.5 - 10.5 K/L [facility] RBC 4.14 (L) 4.63 - 6.08 M/L [facility] Hemoglobin 11.2 (L) 13.7 - 17.5 GM/DL [facility] Hematocrit 36.7 (L) 40.1 - 51.0 % [facility] MCV 88.6 79.0 - 92.2 fL [facility] MCH 27.1 25.7 - 32.2 pg [facility] MCHC 30.5 (L) 32.3 - 36.5 GM/DL [facility] RDW 14.6 (H) 11.6 - 14.4 % [facility] Platelets 178 150 - 450 K/CU MM [facility] MPV 9.1 (L) 9.4 - 12.4 fL [facility] nRBC 0 0 - 0 /100 WBC [facility] Specimen Blood Performing Organization Address City/State/Zipcode Phone Number [facility] [address] [place] [address] MEDICAL CENTER * Basic metabolic panel (12/14/2017 3:13 AM CDT) Only the most recent of 3 results within the time period is included. Sodium 136 136 - 145 meq/L [facility] Potassium 4.1 3.5 - 5.1 meq/L [facility] Chloride 103 98 - 107 meq/L [facility] CO2 24 22 - 29 meq/L [facility] BUN 18 7 - 21 mg/dL [facility] Creatinine 1.40 (H) 0.57 - 1.25 mg/dL [facility] Glucose 128 (H) 70 - 105 mg/dL [facility] Calcium 8.5 8.4 - 10.2 mg/dL [facility] EGFR 49Comment: ESTIMATED GFR IS mL/min/1.[address] [facility] NOT ACCURATE CREATININE [facility] CLEARANCE IN PREDICTING GLOMERULAR FILTRATION RATE. ESTIMATED GFR IS NOT APPLICABLE FOR DIALYSIS PATIENTS. Specimen Blood Performing Organization Address City/[facility]/Zipcode Phone Number [address] [address] [facility] * POC-Glucose meter (12/14/2017 3:01 AM CDT) POC-Glucose Meter 141 (H)Comment: TESTED AT 70 - 110 mg/dL [address] [address] Specimen Blood Performing Organization Address City/[facility]/Zipcode Phone Number [address] [address] [facility] * POC ACTIVATED CLOTTING TIME (12/13/2017 6:10 PM CDT) Only the most recent of 5 results within the time period is included. Activated Clotting Time 125Comment: TESTED AT [facility] sec [address] Specimen Blood Performing Organization Address City/[facility]/Zipcode Phone Number [address] [address] [facility] * Prothrombin time/INR (12/13/2017 8:23 AM CDT) Protime 16.5 (H) 11.7 - 14.7 seconds [facility] INR 1.3 <=5.9 [facility] Specimen Blood Narrative Performed At RECOMMENDED COUMADIN/WARFARIN INR THERAPY RANGES [facility] STANDARD DOSE: 2.0 - 3.0 Includes: PROPHYLAXIS for venous thrombosis, [facility] systemic embolization; TREATMENT for venous thrombosis and/or pulmonary embolus. HIGH RISK: Target INR is 2.5-3.5 for patients with mechanical heart valves. Performing Organization Address City/[facility]/Zipcode Phone Number [facility] [address] [place] [address] [facility] * ECG 12 lead (12/13/2017 8:13 AM CDT) Narrative Performed At Ventricular Rate 78 BPM GE MUSE Atrial Rate 62 BPM QRS Duration 86 ms Q-T Interval 400 ms QTC Calculation(Bazett) 456 ms R [place] -7 degrees T [place] 35 degrees Atrial fibrillation with frequent ventricular-paced complexes Abnormal ECG No previous ECGs available Confirmed by MD FOREMAN JORGE ([id number]) on 12/13/2017 12:13:39 PM Procedure Note Interface, External Ris In - 12/13/2017 12:13 PM CDT Ventricular Rate 78 BPM Atrial Rate 62 BPM QRS Duration 86 ms Q-T Interval 400 ms QTC Calculation(Bazett) 456 ms R [place] -7 degrees T [place] 35 degrees Atrial fibrillation with frequent ventricular-paced complexes Abnormal ECG No previous ECGs available Confirmed by MD FOREMAN JORGE ([id number]) on 12/13/2017 12:13:39 PM Performing Organization Address City/State/Zipcode Phone Number [facility] * CBC with platelet count + automated diff (12/13/2017 7:55 AM CDT) WBC 4.9 3.5 - 10.5 K/L [facility] RBC 4.30 (L) 4.63 - 6.08 M/L [facility] Hemoglobin 11.5 (L) 13.7 - 17.5 GM/DL [facility] Hematocrit 37.7 (L) 40.1 - 51.0 % [facility] MCV 87.7 79.0 - 92.2 fL [facility] MCH 26.7 25.7 - 32.2 pg [facility] MCHC 30.5 (L) 32.3 - 36.5 GM/DL [facility] RDW 14.4 11.6 - 14.4 % [facility] Platelets 171 150 - 450 K/CU MM [facility] MPV 8.8 (L) 9.4 - 12.4 fL [facility] nRBC 0 0 - 0 /100 WBC [facility] % Neutros 75 % [facility] % Lymphs 14 % [facility] % Monos 9 % [facility] % Eos 1 % [facility] % Baso 1 % [facility] # Neutros 3.67 1.78 - 5.38 K/L [facility] # Lymphs 0.70 (L) 1.32 - 3.57 K/L [facility] # Monos 0.43 0.30 - 0.82 K/L [facility] # Eos 0.03 (L) 0.04 - 0.54 K/L [facility] # Baso 0.03 0.01 - 0.08 K/L [facility] Immature 1 0 - 1 % [facility] Specimen Blood Performing Organization Address City/State/Zipcode Phone Number [facility] [address] [place] [address] MEDICAL CENTER * Type and screen, automated (12/13/2017 7:54 AM CDT) ABO/RH AUTOMATED (BEAKER) O POSITIVE [facility] Ab Scrn NEGATIVE [facility] Specimen Blood Performing Organization Address City/State/Zipcode Phone Number [facility] [address] [place], [place] [phone] MEDICAL CENTER * ECHOCARDIOGRAM REPORT - SCAN (12/11/2017 3:21 PM CDT) Narrative Performed At * Transesophageal echo (12/11/2017 8:12 AM CDT) Ejection Fraction [facility] MKCKESSON CPA Narrative Performed At Transesophageal Echocardiography Report (SUZETTE) [facility] Patient Name EDGARDO LIPSCOMB Date of Study 12/11/2017 VLAD [id number] GenderMale Visit Number [id number] RaceUnknown [id number] Number OP Number Date of Birth1940 Referring Physician Delmy Aldrich Age77 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 No [place] appendage Thrombus visualized. Lmec-yi-hqkbkhtk aortic regurgitation. Right ventricular systolic pressure is [...] Aortic ValveAortic valve is normal in appearance. Vbdk-sg-kzvqtvvg aortic regurgitation. Mitral ValveMitral valve is normal in appearance. Mild mitral regurgitation. Tricuspid Strf-kb-sffwugyb tricuspid regurgitation. 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 No [place] appendage Thrombus visualized. Uvpb-bx-ubqgomzq aortic regurgitation. Right ventricular systolic pressure is [...] Valve Aortic valve is normal in appearance. Ieoq-yp-meaxmczl aortic regurgitation. Mitral Valve Mitral valve is normal in appearance. Mild mitral regurgitation. Tricuspid Wqku-be-xfwxmxha tricuspid regurgitation. Right ventricular Valve systolic pressure [...] AM CDT) Narrative Performed At Addendum Begins [facility] REPORT STATUS:A Addendum: I agree with the previously described non vascular findings. Signed: Shamar Walters MD Report Verified Date/Time:12/11/2017 14:59:15 Reading Location: [place] [id number] Angio Body Reading Room Addendum Ends FINAL [...] by the interpreting physician using an independent ([employer]) workstation. Please refer to the contrast sheet [...] dictated regarding the non-vascular findings by the Manufacturing Maintenance Technician Radiologist. Signed: Delvin Sorto MD Report Verified Date/Time:12/11/2017 08:33:56 Reading Location: [place] [id number] Cardiology MRI Procedure Note Interface, External Ris In - 12/11/2017 3:01 PM CDT Addendum Begins REPORT STATUS:A Addendum: I agree with the previously described non vascular findings. Signed: Shamar Walters MD Report Verified Date/Time: 12/11/2017 14:59:15 Reading Location: [facility] P048 Angio Body Reading Room Addendum [...] by the interpreting physician using an independent ([employer]) workstation. Please refer to the contrast sheet [...] dictated regarding the non-vascular findings by the Manufacturing Maintenance Technician Radiologist. Signed: Delvin Sorto MD Report Verified Date/Time: 12/11/2017 08:33:56 Reading Location: [place] [address] Cardiology MRI Performing Organization Address City/[facility] Centercode Phone Number [facility] * POC-Creatinine (12/11/2017 7:31 AM CDT) POC-Creatinine 1.2Comment: [facility] - 1.3 mg/dL [address] POC-EGFR 59 mL/min/1.73M2 [facility] Specimen Blood Performing Organization Address City/[facility]/[place] [address] [facility] * PT/aPTT (12/11/2017 6:49 AM CDT) Protime 23.8 (H) 11.7 - 14.7 seconds [facility] INR 2.1 <=5.9 [facility] PTT 56.1 (H) 22.5 - 36.0 seconds [facility] Specimen Blood Narrative Performed At RECOMMENDED COUMADIN/WARFARIN INR THERAPY RANGES [facility] STANDARD DOSE: 2.0 - 3.0 Includes: PROPHYLAXIS for venous thrombosis, [facility] systemic embolization; TREATMENT for venous thrombosis and/or pulmonary embolus. HIGH RISK: Target INR is 2.5-3.5 for patients with mechanical heart valves. Performing Organization Address City/State/Zipcode Phone Number [facility] [address], [place] [phone] [facility] after 05/23/2017 Insurance Payer Benefit Subscriber ID Type Phone Address Plan / Group MEDICARE MEDICARE A xxxxxxxxxx Medicare B BLUE CROSS/[employer] BCBS xxxxxxxxxxxx PPO [phone] [address] [place] [address] [place] Advance Directives For more information, please contact: [address] [phone] Date Inactivated Comments Code Status Date Activated [...]
--- OUTSIDE RECORDS SUMMARY | 2018-05-24 12:15 | XMS REPORT | Clinical Summary ---
Author Author [facility] Address Unknown Phone Unavailable Care Team Providers Care Helicopter Officer Name Role Phone Kyle Dodge MD PCP Allergies Comments Active Allergy Reactions Severity Noted Date hallucinations Codeine 03/26/2018 Sore joints Qawjxvv-Epw-Nzv Reductase Other (See Low 02/10/2016 Inhibitors Comments) [...] 0 capsule by mouth daily. Active omega 5-qcm-qsp-fish oil Take 1 0 (FISH OIL) 100-160-1,000 [...] urinary obstruction (Primary Dx); Urinary retention 04/14/2018 [facility] General Internal Medicine - Encounter 04/15/2018 Petros Corado MD 04/14/2018 Orders Only Urology N/A 04/14/2018 Intake Access Eliel Barrera MD Goldfarb, Richard A., MD Urinary retention (Primary Dx); Chronic atrial fibrillation (HCC) 04/11/2018 [facility] General Internal Medicine - Encounter 04/13/2018 Areli Cruz APRN 04/03/2018 Anesthesia Urology Event Rene Riley MD CYSTOSCOPY, WITH TURP 04/03/2018 Surgery Urology Rene Riley MD Enlarged prostate with urinary obstruction 04/03/2018 [facility] General Internal Medicine - Encounter 04/04/2018 Rene [...] Taken Vital Sign Reading 04/15/2018 6:28 PM SEWER BUILDER Blood Pressure 158/95 04/15/2018 6:28 PM SEWER BUILDER Pulse 84 04/15/2018 3:46 PM SEWER BUILDER Temperature 36.6 C (97.9 F) 04/15/2018 3:46 PM SEWER BUILDER Respiratory Rate 18 04/15/2018 3:46 PM SEWER BUILDER Oxygen Saturation 92% - Inhaled Oxygen - Concentration 04/03/2018 7:32 AM SEWER BUILDER Weight 96.6 kg (213 lb) 04/11/2018 9:50 AM SEWER BUILDER Height 190.5 cm (6' 3") 04/03/2018 7:32 AM SEWER BUILDER Body Mass Index 26.62 Plan of Treatment Health Maintenance Due Date Last Done Comments SHINGLES VACCINES (1 of 1992 2) PNEUMOCOCCAL 2007 POLYSACCHARIDE VACCINE AGE 65 AND OVER PNEUMOCOCCAL-13 2007 INFLUENZA VACCINE 12/06/2017 Procedures Comments Procedure Name Priority Date/Time Associated Diagnosis HEMOGLOBIN & HEMATOCRIT STAT 04/15/2018 5:30 PM SEWER BUILDER POC GLUCOSE Routine 04/15/2018 12:40 PM SEWER BUILDER POC GLUCOSE Routine 04/15/2018 7:29 AM SEWER BUILDER CBC HEMOGRAM Routine 04/15/2018 5:00 AM SEWER BUILDER ESTIMATED GFR Routine 04/15/2018 4:00 AM SEWER BUILDER BASIC METABOLIC PANEL Routine 04/15/2018 4:00 AM SEWER BUILDER POC GLUCOSE Routine 04/14/2018 9:00 PM SEWER BUILDER POC GLUCOSE Routine 04/14/2018 4:58 PM SEWER BUILDER POC GLUCOSE Routine 04/14/2018 1:07 PM SEWER BUILDER PREPARE RBC Timed 04/14/2018 8:55 AM SEWER BUILDER TYPE AND SCREEN Routine 04/14/2018 8:55 AM SEWER BUILDER POC GLUCOSE Routine 04/14/2018 8:48 AM SEWER BUILDER HC COMPLETE BLD COUNT Routine 04/14/2018 W/AUTO DIFF 5:15 AM SEWER BUILDER ESTIMATED GFR Routine 04/14/2018 4:59 AM SEWER BUILDER BASIC METABOLIC PANEL Routine 04/14/2018 4:59 AM SEWER BUILDER POC GLUCOSE Routine 04/13/2018 11:26 AM SEWER BUILDER ESTIMATED GFR Routine 04/13/2018 4:00 AM SEWER BUILDER BASIC METABOLIC PANEL Routine 04/13/2018 4:00 AM SEWER BUILDER HC COMPLETE BLD COUNT Routine 04/13/2018 W/AUTO DIFF 4:00 AM SEWER BUILDER HEMOGLOBIN & HEMATOCRIT STAT 04/12/2018 4:45 PM SEWER BUILDER HC COMPLETE BLD COUNT Routine 04/12/2018 W/AUTO DIFF 5:00 AM SEWER BUILDER ESTIMATED GFR Routine 04/12/2018 4:00 AM SEWER BUILDER BASIC METABOLIC PANEL Routine 04/12/2018 4:00 AM SEWER BUILDER PREPARE RBC Timed 04/11/2018 12:30 PM SEWER BUILDER ESTIMATED GFR STAT 04/11/2018 12:30 PM SEWER BUILDER PARTIAL THROMBOPLASTIN STAT 04/11/2018 TIME (PTT) 12:30 PM SEWER BUILDER PROTHROMBIN TIME WITH INR STAT 04/11/2018 12:30 PM SEWER BUILDER COMPREHENSIVE METABOLIC STAT 04/11/2018 PANEL 12:30 PM SEWER BUILDER TYPE AND SCREEN Routine 04/11/2018 12:30 PM SEWER BUILDER HC COMPLETE BLD COUNT STAT 04/11/2018 W/AUTO DIFF 12:30 PM SEWER BUILDER ECG 12-LEAD STAT 04/11/2018 9:53 AM SEWER BUILDER POC GLUCOSE Routine 04/04/2018 11:37 AM SEWER BUILDER POC GLUCOSE Routine 04/04/2018 7:27 AM SEWER BUILDER POC GLUCOSE Routine 04/03/2018 9:39 PM SEWER BUILDER POC GLUCOSE Routine 04/03/2018 6:48 PM SEWER BUILDER POC GLUCOSE Routine 04/03/2018 5:06 PM SEWER BUILDER POC GLUCOSE Routine 04/03/2018 2:12 PM SEWER BUILDER SURGICAL PATHOLOGY Routine 04/03/2018 REQUEST 11:15 AM SEWER BUILDER POC GLUCOSE Routine 04/03/2018 10:49 AM SEWER BUILDER OK AN ELECTIVE Routine 04/03/2018 SUPRAGLOTTIC AIRWAY 9:19 AM SEWER BUILDER Procedure Note - Kristin Kong CRNA - 04/03/2018 9:19 AM SEWER BUILDER ANESTHESIA INTUBATION Date/Time: 04/03/2018 9:19 AM Performed [...] TURP 04/03/2018 Enlarged prostate with 9:00 AM SEWER BUILDER urinary obstruction Case Notes REQ 0900 START, POSSIBLE EXTENDED RECOVERY Special Needs REQ 0900 START, POSSIBLE EXTENDED RECOVERY POC GLUCOSE Routine 04/03/2018 7:09 AM SEWER BUILDER CBC HEMOGRAM Routine 03/27/2018 Preop examination 3:30 PM SEWER BUILDER ECG PRE/POST OP Routine 03/27/2018 Preop examination 2:45 PM SEWER BUILDER ESTIMATED GFR Routine 03/27/2018 2:37 PM SEWER BUILDER BASIC METABOLIC PANEL Routine 03/27/2018 Preop examination 2:37 PM SEWER BUILDER HEMOGLOBIN A1C Routine 03/27/2018 Preop examination 2:37 PM SEWER BUILDER TYPE AND SCREEN Routine 03/27/2018 Preop examination 2:37 PM SEWER BUILDER URINALYSIS SCREEN AND Routine 03/27/2018 Preop examination MICROSCOPY, WITH REFLEX 2:37 PM SEWER BUILDER TO CULTURE GRAM STAIN Routine 03/27/2018 2:37 PM SEWER BUILDER URINE CULTURE Routine 03/27/2018 2:37 PM SEWER BUILDER after 05/23/2017 Results * Hemoglobin & hematocrit (04/15/2018 5:30 PM SEWER BUILDER) Only the most recent of 2 results within the time period is included. HGB 10.6 (L) 14.0 - 18.0 g/dL [facility] HCT 33.2 (L) 41.0 - 51.0 % [facility] Specimen Blood Performing Organization Address City/State/Zipcode Phone Number [facility] DEPARTMENT OF [address] [place] [address] PATHOLOGY AND GENOMIC MEDICINE [address] * POC glucose (04/15/2018 12:40 PM SEWER BUILDER) Only the most recent of 15 results within the time period is included. POC glucose 138 (H) 65 - 99 mg/dL [facility] Comment: [facility] Notified RN Meter ID: [id number] Professor Of Industrial Technology: Sheriff Chuy Nieto Performing Organization Address City/[facility]/Zipcode Phone Number [facility] DEPARTMENT OF [address] [place] [address] PATHOLOGY AND GENOMIC MEDICINE [address] * CBC hemogram (04/15/2018 5:00 AM SEWER BUILDER) Only the most recent of 2 results within the time period is included. WBC 4.31 (L) 4.50 - 11.00 k/uL [facility] RBC 2.69 (L) 4.40 - 6.00 m/uL [facility] HGB 7.2 (L) 14.0 - 18.0 g/dL [facility] HCT 22.9 (L) 41.0 - 51.0 % [facility] MCV 85.1 82.0 - 100.0 fL [facility] MCH 26.8 (L) 27.0 - 34.0 pg [facility] MCHC 31.4 31.0 - 37.0 g/dL [facility] RDW - SD 46.1 37.0 - 55.0 fL [facility] MPV 9.9 8.8 - 13.2 fL [facility] Platelet count 271 150 - 400 k/uL [facility] Nucleated RBC 0.00 /100 WBC [facility] Specimen Blood Performing Organization Address City/[facility]/Zipcode Phone Number [facility] DEPARTMENT OF [address] [place] [address] PATHOLOGY AND GENOMIC MEDICINE [address] * Estimated GFR (04/15/2018 4:00 AM SEWER BUILDER) Only the most recent of 6 results within the time period is included. Estimated GFR 79 mL/min/1.73 m2 [facility] Comment: HOSPITAL CatergoryUnitsInte rpretation G1 >=90 Normal or high G2 60-89Mildly decreased [id number] Mildly to moderately decreased [id number] Moderately to severely decreased G4 15-29Severely decreased G5 <15Kidney failure The eGFR was calculated using the Chronic Kidney Disease Epidemiology Collaboration (CKD-EPI) equation. Interpretation is based on recommendations of the National Kidney Foundation-Kidney Disease Outcomes Quality Initiative (NKF-KDOQI) published in 2014. Specimen Plasma specimen Performing Organization Address City/State/Zipcode Phone Number [facility] [place] [address] PATHOLOGY AND GENOMIC MEDICINE [address] * Basic metabolic panel (04/15/2018 4:00 AM SEWER BUILDER) Only the most recent of 5 results within the time period is included. Sodium 142 135 - 148 mEq/L [facility] Potassium 3.9 3.5 - 5.0 mEq/L [facility] Chloride 105 98 - 112 mEq/L [facility] CO2 25 24 - 31 mEq/L [facility] Anion gap 12@ANIO 7 - 15 mEq/L [facility] BUN 12 8 - 23 mg/dL [facility] Creatinine 0.93 0.70 - 1.20 mg/dL [facility] Glucose 102 (H) 65 - 99 mg/dL [facility] Calcium 8.5 (L) 8.8 - 10.2 mg/dL [facility] Specimen Plasma specimen Performing Organization Address [facility] Phone Number [facility] [place] [address] PATHOLOGY AND GENOMIC MEDICINE [address] * Prepare RBC, 2 Units (04/14/2018 8:55 AM SEWER BUILDER) Only the most recent of 2 results within the time period is included. Product name Red Blood Cells -1, Leukored [facility] Unit number [id number] [facility] Product code [id number] [facility] Dispense status Transfused [facility] Blood expiration date [facility] Blood type code 5100 [facility] Blood type O POSITIVE [facility] Product name Red Blood Cells -1, Leukored [facility] Unit number [id number] [facility] Product code [id number] [facility] Dispense status Transfused [facility] Blood expiration date [facility] Blood type code 5100 [facility] Blood type O POSITIVE [facility] Performing Organization Address City/State/[facility] Phone Number [facility] DEPARTMENT OF [address] [place] [address] PATHOLOGY AND GENOMIC MEDICINE [facility] [address] [place] [address] * Type and screen (04/14/2018 8:55 AM SEWER BUILDER) Only the most recent of 3 results within the time period is included. ABO grouping O [facility] Rh type POS [facility] Antibody screen (gel) NEG [facility] Specimen Blood Performing Organization Address City/State/Zipcode Phone Number [facility] DEPARTMENT OF [address] [place] [address] PATHOLOGY AND GENOMIC MEDICINE [address] * CBC with platelet and differential (04/14/2018 5:15 AM SEWER BUILDER) Only the most recent of 4 results within the time period is included. WBC 5.45 4.50 - 11.00 k/uL [facility] RBC 2.69 (L) 4.40 - 6.00 m/uL [facility] HGB 7.3 (L) 14.0 - 18.0 g/dL [facility] HCT 23.2 (L) 41.0 - 51.0 % [facility] MCV 86.2 82.0 - 100.0 fL [facility] MCH 27.1 27.0 - 34.0 pg [facility] MCHC 31.5 31.0 - 37.0 g/dL [facility] RDW - SD 47.5 37.0 - 55.0 fL [facility] MPV 9.4 8.8 - 13.2 fL [facility] Platelet count 213 150 - 400 k/uL [facility] Nucleated RBC 0.00 /100 WBC [facility] Neutrophils 75.2 (H) 39.0 - 69.0 % [facility] Lymphocytes 14.9 (L) 25.0 - 45.0 % [facility] Monocytes 8.3 0.0 - 10.0 % [facility] Eosinophils 0.4 0.0 - 5.0 % [facility] Basophils 0.6 0.0 - 1.0 % [facility] Immature granulocytes 0.6Comment: "Immature 0.0 - 1.0 % [facility] granulocytes" (promyelocytes, HOSPITAL myelocytes, metamyelocytes) Specimen Blood Performing Organization Address City/State/Zipcode Phone Number [facility] DEPARTMENT OF [address] [place] [address] PATHOLOGY AND GENOMIC MEDICINE [address] * Partial thromboplastin time, activated (04/11/2018 12:30 PM SEWER BUILDER) PTT 39.4 (H) 23.0 - 36.0 sec [facility] Comment: HOSPITAL PTT therapeutic range for unfractionated heparin is 61.0-112.0 seconds which corresponds to Anti-Xa 0.3-0.7 U/ml. Specimen Blood Performing Organization Address City/State/Zipcode Phone Number [facility] [place] [address] PATHOLOGY AND GENOMIC MEDICINE [address] * Prothrombin time with INR (04/11/2018 12:30 PM SEWER BUILDER) Prothrombin time 19.8 (H) 11.5 - 14.5 sec [facility] INR 1.7 [facility] Comment: HOSPITAL The International Normalized Ratio (INR) is a therapeutic monitoring tool for patients who are stable on oral anticoagulant therapy. An INR of 2.0-3.0 is suggested for deep vein thrombosis/pulmonary embolism. Specimen Blood Performing Organization Address City/[facility]/Zipcode Phone Number [facility] [place] [address] PATHOLOGY AND GENOMIC MEDICINE [address] * Comprehensive metabolic panel (04/11/2018 12:30 PM SEWER BUILDER) Sodium 141 135 - 148 mEq/L [facility] Potassium 4.4 3.5 - 5.0 mEq/L [facility] Chloride 102 98 - 112 mEq/L [facility] CO2 25 24 - 31 mEq/L [facility] Anion gap 14@ANIO 7 - 15 mEq/L [facility] BUN 12 8 - 23 mg/dL [facility] Creatinine 1.02 0.70 - 1.20 mg/dL [facility] Glucose 123 (H) 65 - 99 mg/dL [facility] Calcium 8.7 (L) 8.8 - 10.2 mg/dL [facility] Protein 5.9 (L) 6.3 - 8.3 g/dL [facility] Comment: HOSPITAL [place] 4.6-7.0 g/dL 1 week 4.4-7.6 g/dL 7 months-1year 5.1-7.3 g/dL 1-2 years5.6-7 .5 g/dL >3 years6.0-8 .0 g/dL 18-150 6.3-8.3 g/dL Albumin 3.4 (L) 3.5 - 5.0 g/dL [facility] A/G ratio 1.4 0.7 - 3.8 [facility] Alkaline phosphatase 80 40 - 129 U/L [facility] AST 32 10 - 50 U/L [facility] ALT 52 (H) 5 - 50 U/L [facility] Total bilirubin 0.8 0.0 - 1.2 mg/dL [facility] Specimen Plasma specimen Performing Organization Address City/State/[facility] Phone Number [facility] DEPARTMENT OF [address] [place] [address] PATHOLOGY AND GENOMIC MEDICINE [address] * ECG 12 lead (04/11/2018 9:53 AM SEWER BUILDER) Ventricular rate 144 [facility] MUSE Atrial rate 141 [facility] QRSD interval 76 [facility] QT interval 264 [facility] QTC interval 408 [facility] QRS axis 1 -19 [facility] T wave axis 89 [facility] EKG impression Atrial fibrillation with rapid [facility]USE ventricular response-Nonspecific ST and T wave abnormality-Abnormal ECG-In automated comparison with ECG of 27-MAR-2018 14:45,-Vent. rate has increased BY50 BPM- Narrative Performed At Performing Organization Address City/State/Zipcode Phone Number [place] [id number] [place] [address] * Surgical pathology request (04/03/2018 11:15 AM SEWER BUILDER) [facility] DEPARTMENT OF PATHOLOGY AND GENOMIC MEDICINE Surgical pathology report See link below for PDF Lab [facility] DEPARTMENT OF Report PATHOLOGY AND GENOMIC MEDICINE Result status This is Final Report for [facility] DEPARTMENT OF [id number] PATHOLOGY AND GENOMIC MEDICINE Performing Organization Address City/State/Zipcode Phone Number [facility] DEPARTMENT OF [address] [place] [address] PATHOLOGY AND GENOMIC MEDICINE * ECG Pre/Post Op (03/27/2018 2:45 PM SEWER BUILDER) Ventricular rate 94 [facility] Atrial rate 159 [facility] QRSD interval 88 [facility] QT interval 342 [facility] QTC interval 427 [facility] QRS axis 1 3 [facility] T wave axis 77 [facility] EKG impression Atrial [facility] MUSE fibrillation-Nonspecific ST and T wave abnormality , probably digitalis effect-Abnormal ECG-No previous ECGs available- Narrative Performed At Performing Organization Address City/[facility] [place] [address] * Urinalysis screen and microscopy, with reflex to culture (03/27/2018 2:37 PM SEWER BUILDER) Specimen site Clean catch [facility] Color, UA Red [facility] Appearance, UA Cloudy [facility] Specific gravity, UA 1.017 1.001 - 1.035 [facility] pH, UA 5.0 5.0 - 8.5 [facility] Protein, UA 2+ (A) Negative [facility] Glucose, UA Negative Negative [facility] Ketones, UA Negative Negative [facility] Bilirubin, UA Negative Negative [facility] Blood, UA Large (A) Negative [facility] Nitrite, UA Negative Negative [facility] Urobilinogen, UA <2.0 <2.0 [facility] Leukocyte esterase, UA Moderate (A) Negative [facility] WBC, UA 96 (H) 0 - 1 /HPF [facility] RBC, UA >180 (H) 0 - 5 /HPF [facility] Bacteria, UA Few None seen [facility] Yeast, UA None seen [facility] Yeast with pseudohyphae, None seen [facility] Hyaline casts, UA 12 /LPF [facility] Specimen Urine Performing Organization Address City/State/Zipcode Phone Number [facility] DEPARTMENT OF [address] [place] [address] PATHOLOGY AND GENOMIC MEDICINE [address] * Gram stain (03/27/2018 2:37 PM SEWER BUILDER) Gram stain result Many Gram positive rods [facility] Many Gram positive cocci in HOSPITAL pairs Few WBC's Comment: Specimen Information Specimen Source: Urine Specimen Site: Clean catch Specimen Urine Performing Organization Address City/[facility] Phone Number [facility] DEPARTMENT OF [address] [place] [address] PATHOLOGY AND GENOMIC MEDICINE [address] * Urine culture (03/27/2018 2:37 PM SEWER BUILDER) Urine culture isolate Enterococcus faecalis [facility] >10-5 cfu/ml [facility] The performance characteristics of this assay on this isolate were validated by the Microbiology Laboratory at [facility].This source has not been approved by the [...] mcg/mL: Susceptible Enterococcus faecalis Performing Organization Address City/[facility] Phone Number [facility] DEPARTMENT OF [address] [place] [address] PATHOLOGY AND GENOMIC MEDICINE [address] * Hemoglobin A1c (03/27/2018 2:37 PM SEWER BUILDER) Hemoglobin A1C 6.3 (H) 4.0 - 5.6 % [facility] Comment: HOSPITAL HbA1c cutoffs for diagnosing diabetes: 4.0% - 5.6%=normal 5.7% - 6.4%=increased risk for diabetes (prediabetes) >=6.5%=diabetes Goals for glycemic control (ADA 2016) < 7.0%Target for non adults with diabetes. More or less stringent targets may be appropriate for individual patients. <7.5% Target for Children and adolescents with type 1 diabetes. Specimen Blood Performing Organization Address City/State/Zipcode Phone Number [facility] DEPARTMENT OF [address] [place] [address] PATHOLOGY AND GENOMIC MEDICINE [facility] [address] [place] [address] HOSPITAL after 05/23/2017 Insurance Payer Benefit Subscriber ID Type Phone Address Plan / Group MEDICARE MEDICARE xxxxxxxxxxx Medicare [place], [place] PART A AND B BCBS BCBS xxxxxxxxxxxx Indemnity PAR/TRAD PLAN Advance Directives Patient has advance care planning documents on file. For more information, bryce smith contact: [facility] [address] [place] [phone]
[2018-05-24] MEDS ORDERED: METOPROLOL TARTRATE INJ 1 MG/ML VIAL IV ONE (12:30)
[2018-05-24] MEDS ORDERED: DIGOXIN INJ 0.25 MG/ML 2 ML AMP IV ONE (14:15)
--- NOTE | 2018-05-24 14:53 | NUR ---
Rechecked oxygen level after placing the patient on 2L NC and noted to be at 94%.
--- NOTE | 2018-05-24 15:17 | NUR ---
Received patient from ER. Patient A/O X3, respirations even and unlabored on 2L NC. Patient has a Left AC 20 gauge IV that is saline locked. Right nare is packed at this time due to epistaxis. Patient is ambulatory with assist and walker. Last bowel movement was this morning, bowel sounds present. Denies any pain or discomfort at this time. Will continue to monitor.
[2018-05-24 15:35] LABS: HEMATOCRIT 25.7 % (38.2-49.6); HEMOGLOBIN 7.5 g/dL (14.0-18.0)
--- NOTE | 2018-05-24 16:03 | NUR ---
Paged Dr. Dodge regarding H&H lab results
--- NOTE | 2018-05-24 16:45 | NUR ---
Spoke to Dr. Dodge about elevated HR after giving digoxin and ordered to transfer patient to [facility]
--- NOTE | 2018-05-24 16:59 | NUR ---
Paged Dr. Gross regarding patients status and Dr. Bond order to transfer patient to [facility]
--- NOTE | 2018-05-24 16:59 | NUR ---
REPORT GIVEN TO [facility] NURSE ROBERTO.
[2018-05-24] MEDS ORDERED: AMIODARONE HCL 150 MG/100 ML BAG IV ONE (17:00)
[2018-05-24] MEDS ORDERED: AMIODARONE HCL 900 MG in DEXTROSE 5% 500ML 500 ML IV SCH (17:00)
--- NOTE | 2018-05-24 17:11 | NUR ---
Spoke with Dr. Gross regarding patients status. Order to repeat digoxin.
[2018-05-24] MEDS ORDERED: DIGOXIN INJ 0.25 MG/ML 2 ML AMP IV NR (17:30)
--- NOTE | 2018-05-24 17:42 | NUR ---
PATIENT RECEIVED FROM RM#102 PER BED, HE'S ALERT AND ORIENTED X3, HE DENIES SHORTNESS OF BREATH AND PAIN. RHYTHM IS A-FIB WITH RVR, BOLUS DOSE OF AMIODARONE INFUSING AT THIS TIME. WILL CONTINUE TO CLOSELY MONITOR THE BLOOD PRESSURE AND HEART RATE WHILE ON THIS MEDICATION.
[2018-05-24] MEDS ORDERED: ESMOLOL HCL 2500MG/250 ML 250 ML IV SCH ×2 (18:15→21:00)
[2018-05-24] MEDS ORDERED: ALBUMIN 25% 25GM 100ML 0.25 GM/ML BTL IV ONE (18:30)
[2018-05-24] MEDS ORDERED: ALBUMIN 25% 25GM 100ML 100 ML IV ONE (19:00)
--- NOTE | 2018-05-24 19:05 | Diagnostic Imaging Report ---
Examination: Single AP view of the chest. COMPARISON: Chest 1 view 03/15/2018 INDICATION: Atrial fibrillation, CHF IMPRESSION: 1. Lines and Tubes: Stable left upper chest multilead cardiac device. 2. Lungs are grossly clear. No consolidation or effusion. No pulmonary edema. 3. Stable enlarged cardiac silhouette. Pulmonary vasculature is normal. 4. No acute bony abnormalities. Signed by: Dr. Steve Rutherford M.D. on 05/24/2018 7:01 PM
[2018-05-24] MEDS ORDERED: NON-FORMULARY MEDICATION (Clonazepam 0.5 MG) PO PRN (19:30)
[2018-05-24] MEDS ORDERED: CLONAZEPAM 1 MG TAB PO PRN (20:00)
--- NOTE | 2018-05-24 20:20 | NUR ---
Dr. Curran roundjuliette. removed rhino rocket from R nostril and cauterized R nostril. Patient reports feeling better, family at bedside. Dr. Curran informed he would put in orders for medications.
--- NOTE | 2018-05-24 21:00 | NUR ---
Order for esmolol clarified with Dr. Gross. Discussed with pharmacy and patient/family. Per Dr. Gross, start at 100 mcg/kg/min; titrate from 50 mcg/kg/min-200 mcg/kg/min for HR < 100.
[2018-05-24] MEDS: NEOMYCIN/POLYMYXIN/BACITRACIN 15 GM TUBE TOP SCH (22:00)
[2018-05-24] MEDS: SALINE 0.65% NAS SOLN 1 SPRAY BTL SCH (22:00)
[2018-05-24] MEDS: IRON SUCROSE 100 MG in SODIUM CHLORIDE 0.9% 100 ML 100 ML IV SCH (22:00)
[2018-05-24 22:06] LABS: HEMATOCRIT 23.9 % (38.2-49.6)
--- NOTE | 2018-05-24 22:38 | Consultation ---
DATE OF CONSULTATION: May 24, 2018 HISTORY OF PRESENT ILLNESS: I was kindly asked to see this 78-year-old man for evaluation of epistaxis. The patient had no previous history of epistaxis until 2 days ago when he developed right-sided epistaxis, which stopped spontaneously. He then developed epistaxis the morning of presentation while sleeping. Bleeding was not able to be stopped with pressure and a nasal pack was placed on the right side of the nose. Since placement of the packing, he has had no further epistaxis. PAST MEDICAL HISTORY: Pertinent for atrial fibrillation requiring anticoagulation. His admission INR was 1.42. Admission hemoglobin was 8.2 and subsequently decreased to 7.5. REVIEW OF SYSTEMS: His otolaryngology review of systems is pertinent for hearing loss. PHYSICAL EXAMINATION: The tympanic membranes and external auditory canals are normal. He has a nasal packing on the right side of his nose. Pharyngeal examination is unremarkable. Oral cavity examination is normal. There is no palpable cervical adenopathy. The nasal packing was removed. The nose was anesthetized with Pontocaine and decongested with Afrin and a fiberoptic diagnostic rhinoscopy was performed. The only bleeding point identified was in the right anterior nasal septum. This was cauterized with silver nitrate. ASSESSMENT 1. Epistaxis. 2. Nasal septal deviation. 3. Coagulopathy. PLAN 1. [place] nasal spray 2 puffs each side of nose q.4 h. while awake. 2. Bacitracin ointment to each nostril t.i.d. 3. Addition of heated humidification to his oxygen supply. Thank you very much. Job#: [id number] AMI
--- NOTE | 2018-05-24 23:05 | NUR ---
Patient's family asking about medication ordered for sleep. Informed of order for clonazepam from MD and patient's dtr said that she gave it to him this evening already. Patient and patient's daughter educated on medication administration and to not take any medications from home. Patient and family stated understanding.
[2018-05-24] MEDS ORDERED: SODIUM CHLORIDE 0.9% 250ML 250 ML IV ONE (23:15)
[2018-05-24] MEDS ORDERED: AMIODARONE 900MG 500 ML IV SCH (23:15)
[2018-05-25] VITALS: BP 88/69
[2018-05-25] MEDS ORDERED: SODIUM CHLORIDE 0.9% 250ML 250 ML ONE (00:15)
--- NOTE | 2018-05-25 02:00 | Consultation ---
DATE OF CONSULTATION: May 24, [address] Dodge. Patient was admitted on the 24 of May and seen on 24 of May. HISTORY: This 78-year-old patient presented to the emergency room with severe nosebleed. The patient stated that he had a sudden onset of severe nosebleed and he indicated that I lost a lot of blood. He required packing of the right nostril in the emergency room and consultation was called in to Dr. Curran for further evaluation and treatment. At the moment, the patient is in his room, in a semi-upright position. He is comfortable. He has nasal oxygen because of low oxygen saturation and there does not seem to be any bleeding by inspection of the packing. The patient also has chronic atrial fibrillation and presented with a rapid ventricular rate, and I was kindly consulted by Dr. Dodge for cardiovascular evaluation. PAST HISTORY: Reveals that earlier he had TURP for benign prostatic hypertrophy and about 1 week thereafter, he had an acute anterior myocardial infarction with occlusion of previously placed stent and he required a new placement of a stent, however, he still ended up with severe left ventricular dysfunction and large anterior apical infarct. He also had severe hypoxic encephalopathy with the occurrence of his myocardial infarction and required extensive rehabilitation at [facility]. When he left, he was able to walk with walker. 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 He also has some evidence of congestive heart failure and pulmonary insufficiency. The patient's past history also reveals that he has diabetes mellitus, hypertensive cardiovascular disease, he has permanent pacemaker, he had previous unsuccessful ablation procedures, he also had a history of chronic kidney disease. ALLERGIES: CODEINE. SOCIAL HISTORY: Negative. FAMILY HISTORY: Noncontributory. REVIEW OF SYSTEMS: Remainder of systems reviewed, revealed patient denies any headache or sore throat. The patient denies any chest pain. He has some shortness of breath. Denies any abdominal pain, nausea, vomiting, diarrhea, melena, hematemesis, or increased bruising. PHYSICAL EXAMINATION: VITAL SIGNS: Reveals a blood pressure 100/72, temperature 96.6, oxygen saturation was 81%, respiratory rate was 18. NECK: Carotid pulses are present. CHEST: Clear to auscultation. CARDIOVASCULAR SYSTEM: There is a normal apical impulse. The rhythm is irregularly irregular with rate of approximately 120, varying between 110 and 130 per minute. There is no S3. There is no rub. ABDOMEN: Soft. There is no tenderness, no organomegaly. EXTREMITIES: Pulses are diminished. Both feet are warm. There is no peripheral edema. NEUROLOGIC: Does not reveal any localized motor defect. IMPRESSION: 1. Severe epistaxis. 2. Significant anemia. 3. Atrial fibrillation with rapid ventricular response. 4. Coronary artery disease with recent anterior myocardial infarction and repeat coronary stenting. 5. History of hypertension. 6. Hypoxic encephalopathy. 7. Status post transurethral resection of prostate with history of postoperative urinary bleeding and lengthy treatment with Leos catheterization. I have discussed the patient's present situation with epistaxis and use of anticoagulation in length with the patient and his family, and will await the consultation by Dr. Curran. Hopefully to cauterize the source of bleeding so the patient can resume his Plavix, which he needs for the recent coronary stent and also anticoagulation because of his chronic atrial fibrillation and history of embolic cerebrovascular accident very soon. In the meantime, we will start the patient on esmolol for control of his ventricular rate and continue careful monitoring and observation along with followup hemoglobin and hematocrit as already ordered by Dr. Dodge. Thank you very much for letting me see this very nice patient. Job#: [id number]
[2018-05-25 04:00] VITALS: BP 104/63
[2018-05-25 06:10] LABS: BASOPHILS % 0.7 % (0.0-1.0); EOSINOPHILS % 0.7 % (0.0-6.0); HEMATOCRIT 26.6 % (38.2-49.6); HEMOGLOBIN 7.8 g/dL (14.0-18.0); LYMPHOCYTES # (AUTO) 0.9 (1.0-3.2); MEAN CORPUSCULAR HEMOGLOBIN 25.8 pg (28-32); MEAN CORPUSCULAR HGB CONC 29.3 g/dL (31-35); MEAN CORPUSCULAR VOLUME 88.1 fL (81-99); MONOCYTES # (AUTO) 0.4 (0.2-0.8); NEUTROPHILS # (AUTO) 3.2 (2.1-6.9); NEUTROPHILS % 69.2 % (38.7-80.0); PLATELET COUNT 171 x10e3/uL (140-360); RED BLOOD COUNT 3.02 x10e6/uL (4.3-5.7); RED CELL DISTRIBUTION WIDTH 18.2 % (11.7-14.4)
[2018-05-25 06:38] LABS: ALANINE AMINOTRANSFERASE 19 IU/L (0-55); ALBUMIN 3.1 g/dL (3.5-5.0); ALBUMIN/GLOBULIN RATIO 1.3 (0.8-2.0); ALKALINE PHOSPHATASE 65 IU/L (40-150); ANION GAP 13.3 mmol/L (8-16); BLOOD UREA NITROGEN 28 mg/dL (7-26); BUN/CREATININE RATIO 27 (6-25); CALCIUM 8.4 mg/dL (8.4-10.2); CARBON DIOXIDE 24 mmol/L (22-29); CHLORIDE 106 mmol/L (98-107); CREATININE, SERUM 1.02 mg/dL (0.72-1.25); EST GLOMERULAR FILTRATION RATE > 60 ML/MIN (60-); GLUCOSE 73 mg/dL (74-118); POTASSIUM 4.3 mmol/L (3.5-5.1); SODIUM 139 mmol/L (136-145)
--- NOTE | 2018-05-25 07:33 | History and Physical ---
CHIEF COMPLAINT: Patient comes in with epistaxis. HISTORY OF PRESENTING ILLNESS: This is Mr. Elvis Medellin who had a long stay in the hospital, status post non-STEMI, status post cardiac cath with angioplasty with extensive rehabilitation in [facility], was in usual state of health until the morning of admission, the patient started with some nasal bleed. The bleed was uncontrollable. EMS was activated. The patient came in, was bleeding. Nasal Rocket was applied, and the patient still continued to bleed, and the patient is admitted secondary to anemia and also with atrial fibrillation with rapid ventricular response. Alternatively, patient is status post cauterization of nose, continued on esmolol drip, was on amiodarone drip, stopped and started the esmolol. Feeling better, wants to go home today. PAST MEDICAL HISTORY: History of anxiety, history of atrial fibrillation, history of multiple ablations, history of benign prostatic hypertrophy status post TURP, history of hypertensive episodes, and history of urinary retention. SURGICAL HISTORY: Includes: 1. History of ablation. 2. History of gallbladder removal. 3. History of TURP. 4. History of recent left heart cath. MEDICATIONS: He takes at home are clonazepam 0.5 mg at nighttime, clopidogrel 75 mg at nighttime, finasteride 5 mg daily, metoprolol 25 mg ER twice a day, midodrine 2.5 mg twice a day, omega-3 fatty acid 1 capsule daily, Eliquis 2.5 mg twice a day, and Rapaflo once a day. REVIEW OF SYSTEMS: Negative for chest pain. No shortness of breath. No nausea, vomiting, diarrhea. No constipation, no rectal bleeding. No hematochezia, no hematemesis and no diplopia and no blurry vision. Positive for nosebleeds as reported above. No headache. SOCIAL HISTORY: No ETOH, no IV drug abuse. Lives with at home. PHYSICAL EXAMINATION: VITAL SIGNS: Temperature is 96.4, pulse of 89, blood pressure is 88/69, pulse oximetry of 100%. HEENT: Normocephalic, atraumatic. Positive for pallor. CVS: S1 and S2 irregular. Heart rate about 100 to 110. ABDOMEN: Nontender, nondistended. EXTREMITIES: No clubbing, no cyanosis, and no edema. LABORATORY VALUES: White count was 6.11 when he came in, hemoglobin was 8.2, hematocrit of 28.3. Serial H and Hs were done. Hemoglobin dropped from 8.2 to 7.5 to 7, transfused 1 unit of PRBC, today is 7.8. Patient's platelet count is normal. MCV, MCHC indicative of iron deficiency, was given iron transfusion. Coags: His INR is 1.42. Chemistry: Sodium of 139, potassium 4.7, BUN of 26, creatinine of 1.07, glucose of 119. Patient's chest x-ray shows no acute abnormality, stable enlarged cardiac silhouette, lungs are grossly clear, lines and tube clear. ASSESSMENT: 1. Epistaxis, status post packing, status post cauterization. 2. Atrial fibrillation with rapid ventricular response. Patient is on esmolol drip. Will continue back on his metoprolol. 3. Restart his Eliquis and Plavix. 4. History of dbo-OW-gheiaamzx myocardial infarction. Continue on beta blockade and Plavix. 5. History of hypertension. Patient has been on midodrine. Will continue that at this time and control the heart rate. 6. Status post transurethral resection of prostate. Continue with Rapaflo and also finasteride. 7. Blood loss anemia, status post transfusion and iron deficiency anemia, status post iron transfusion. Further recommendations per clinical course. The patient's rate is controlled and can be discharged if it is okay with cardiology if rate is controlled on metoprolol. Job#: [id number]
[2018-05-25 08:00] VITALS: BP 101/80
--- NOTE | 2018-05-25 08:16 | NUR ---
CASE MANAGEMENT INITIAL ASSESSMENT Stepdown Nurse to bedside to discuss plan of care with patient/family. CM/SW role and care transitions discussed. Anticipated discharge plan discussed along with duration of care. CM/SW discussed patients right to make decisions in care. CM/SW work hours given. Patient lives: Admit/Transfer: ER POA/Emergency contact: MARITA LIPSCOMB [phone] Current/Previous Home Health: OUTPATIENT P.T. PCP/Follow-up Care: DR AIDEN CABELLO Current/Previous DME: [employer] Other Services: NONE Employment Status: RETIRED Areas of Concerns: NONE Referral Needs: NONE Education Needs: R/U WITH PCP IMM/MOTLEY given and signed (if applicable): MOTLEY ON ADMIT Goal for discharge:HOME CM/SW left business card at the bedside with contact information. Name and number was also written on the patients whiteboard. Patient verbalized understanding of discussion. CM will follow-up with ongoing discharge and transition of care needs.
[2018-05-25 08:30] VITALS: BP 98/67
[2018-05-25] MEDS: SALINE 0.65% NAS SOLN 1 SPRAY BTL SCH (08:30)
[2018-05-25] MEDS: NEOMYCIN/POLYMYXIN/BACITRACIN 15 GM TUBE TOP SCH (08:35)
[2018-05-25] MEDS ORDERED: METOPROLOL SUCCINATE 25 MG TAB XL PO SCH (09:00)
[2018-05-25] MEDS ORDERED: NON-FORMULARY MEDICATION ([Eliquis] 2.5 MG) PO SCH (09:00)
[2018-05-25] MEDS ORDERED: APIXAB 2.5 MG TABLET PO SCH (09:00)
[2018-05-25] MEDS ORDERED: CLOPIDOGREL BISULFATE 75 MG TAB PO SCH (09:00)
[2018-05-25] MEDS ORDERED: MIDODRINE 2.5 MG TAB PO SCH (09:00)
[2018-05-25 09:30] VITALS: BP 110/79
[2018-05-25 09:56] VITALS: BP 101/80
--- NOTE | 2018-05-25 10:00 | NUR ---
esmolol gtt held at 0830 when restarted po metoprolol and midrodrine medications. will continue to monitor hr and bp. resting hr 97-105bpm. patient ambulated to bathroom and hr increased to 133 max and then decreased back to baseline upon rest. pt denied sny s/s of increased hr
[2018-05-25] MEDS: IRON SUCROSE 100 MG in SODIUM CHLORIDE 0.9% 100 ML 100 ML IV SCH (10:01)
--- NOTE | 2018-05-25 11:00 | NUR ---
spoke with dr. isai herzog. analisa to discharge patient home. analisa with dr. santamaria to discharge patient home.
--- NOTE | 2018-05-25 11:58 | NUR ---
patient discharged with all of belongings. reviewed home medications with patient and . pt has a scheduled appt next monday with cardiology. discharge instructions given to patient and . both verbalized understanding of all instructions. pt escorted to private auto via wheelchair.
[2018-05-25] MEDS ORDERED: FINASTERIDE 5 MG TAB PO SCH (21:00)
== END 2018-05-25 11:34 | disposition home or self-care (01) | DRG 151 ==
LOC: ER 08:39 → ERHOLD 12:12 → MED/SURG 13:27 → OBSVTOIN 16:59 → IMCU 17:00
PROVIDERS: ADMIT Family Medicine; ATTEND Family Medicine
PROC: 093K7ZZ Control Bleeding in Nasal Mucosa and Soft Tissue, Via Natural or Artificial Opening (ICD-10-PCS; principal; 2018-05-25)
PROC: 30233N1 Transfusion of Nonautologous Red Blood Cells into Peripheral Vein, Percutaneous Approach (ICD-10-PCS; 2018-05-25)
DX: R04.0 Epistaxis (principal); D62 Acute posthemorrhagic anemia; G93.1 Anoxic brain damage, not elsewhere classified; I25.2 Old myocardial infarction; I48.91 Unspecified atrial fibrillation; Z79.01 Long term (current) use of anticoagulants; I10 Essential (primary) hypertension; I25.10 Atherosclerotic heart disease of native coronary artery without angina pectoris; D50.9 Iron deficiency anemia, unspecified; I48.2 Chronic atrial fibrillation
CPT/HCPCS: 36415; 71045; 80053; 82550; 82553; 83540; 84484; 85014; 85018; 85025; 85610; 86850; 86900; 86920; 93005; 99284; G0378; J1160; J1756; J3430; J7040; J7050; J7060; P9016; P9047

== ENCOUNTER 2018-05-29 01:06 | Inpatient (IN) | payer MEDICARE, BC ==
[~2018-05-29] VITALS: Ht 190.5 cm; Wt 97.5 kg
[~2018-05-29 01:06] MED LIST changes: +ELIQUIS PO; +METOPROLOL SUCC25 MG PO; +MIDODRINE HCL2.5 MG PO
--- OUTSIDE RECORDS SUMMARY | 2018-05-29 01:10 | XMS REPORT | Clinical Summary ---
Author Author RADHA [facility] Address Unknown Phone Unavailable Care Team Providers Care Production Metal Sprayer Name Role Phone Kyle Dodge MD PCP Allergies Comments Active Allergy Reactions Severity Noted Date HALLUCINATIONS Codeine 02/15/2016 Sore joints Fuqludb-Oud-Pjs Reductase Other (See Low 02/10/2016 Inhibitors Comments) [...] Date A-fib 08/24/2016 CAD (coronary artery disease), [place] coronary artery 02/10/2016 DM (diabetes mellitus) type [...] breath 12/06/2017 Outside Orders Central Scheduling after 05/28/2017 Social History Date Tobacco Use Types Packs/Day [...] ms QTC Calculatio n(Bazett) 456 ms R [place] -7 degrees T [place] 35 degrees Atrial fibrillati on with frequent [...] unspecified type (HCC) Shortness of breath after 05/28/2017 Results * RHYTHM STRIP - SCAN (12/15/2017 [...] CDT) WBC 7.8 3.5 - 10.5 K/L [facility] RBC 4.14 (L) 4.63 - 6.08 M/L [facility] Hemoglobin 11.2 (L) 13.7 - 17.5 GM/DL [facility] Hematocrit 36.7 (L) 40.1 - 51.0 % [facility] MCV 88.6 79.0 - 92.2 fL [facility] MCH 27.1 25.7 - 32.2 pg [facility] MCHC 30.5 (L) 32.3 - 36.5 GM/DL [facility] RDW 14.6 (H) 11.6 - 14.4 % [facility] Platelets 178 150 - 450 K/CU MM [facility] MPV 9.1 (L) 9.4 - 12.4 fL [facility] nRBC 0 0 - 0 /100 WBC [facility] Specimen Blood Performing Organization Address City/State/Zipcode Phone Number [facility] [address] [place] [address] [facility] * Basic metabolic panel (12/14/2017 3:13 AM CDT) Only the most recent of 3 results within the time period is included. Sodium 136 136 - 145 meq/L [facility] Potassium 4.1 3.5 - 5.1 meq/L [facility] Chloride 103 98 - 107 meq/L [facility] CO2 24 22 - 29 meq/L [facility] BUN 18 7 - 21 mg/dL [facility] Creatinine 1.40 (H) 0.57 - 1.25 mg/dL [facility] Glucose 128 (H) 70 - 105 mg/dL [facility] Calcium 8.5 8.4 - 10.2 mg/dL [facility] EGFR 49Comment: ESTIMATED GFR IS mL/min/1.73 sq m [facility] NOT ACCURATE CREATININE [facility] CLEARANCE IN PREDICTING GLOMERULAR FILTRATION RATE. ESTIMATED GFR IS NOT APPLICABLE FOR DIALYSIS PATIENTS. Specimen Blood Performing Organization Address City/[facility]/Zipcode Phone Number [address] [address] [facility] * POC-Glucose meter (12/14/2017 3:01 AM CDT) POC-Glucose Meter 141 (H)Comment: TESTED AT 70 - 110 mg/dL [address] [address] Specimen Blood Performing Organization Address City/[facility]/Zipcode Phone Number [address] [address] [facility] * POC ACTIVATED CLOTTING TIME (12/13/2017 6:10 PM CDT) Only the most recent of 5 results within the time period is included. Activated Clotting Time 125Comment: TESTED AT [facility] sec [address] Specimen Blood Performing Organization Address City/[facility]/Zipcode Phone Number [address] [address] [facility] * Prothrombin time/INR (12/13/2017 8:23 AM CDT) Protime 16.5 (H) 11.7 - 14.7 seconds [facility] INR 1.3 <=5.9 [facility] Specimen Blood Narrative Performed At RECOMMENDED COUMADIN/WARFARIN INR THERAPY RANGES [facility] STANDARD DOSE: 2.0 - 3.0 Includes: PROPHYLAXIS for venous thrombosis, [facility] systemic embolization; TREATMENT for venous thrombosis and/or pulmonary embolus. HIGH RISK: Target INR is 2.5-3.5 for patients with mechanical heart valves. Performing Organization Address City/[facility]/Zipcode Phone Number [facility] [address] [place] [address] [facility] * ECG 12 lead (12/13/2017 8:13 AM CDT) Narrative Performed At Ventricular Rate 78 BPM GE MUSE Atrial Rate 62 BPM QRS Duration 86 ms Q-T Interval 400 ms QTC Calculation(Bazett) 456 ms R [place] -7 degrees T [place] 35 degrees Atrial fibrillation with frequent ventricular-paced complexes Abnormal ECG No previous ECGs available Confirmed by MD FOREMAN JORGE ([id number]) on 12/13/2017 12:13:39 PM Procedure Note Interface, External Ris In - 12/13/2017 12:13 PM CDT Ventricular Rate 78 BPM Atrial Rate 62 BPM QRS Duration 86 ms Q-T Interval 400 ms QTC Calculation(Bazett) 456 ms R [place] -7 degrees T [place] 35 degrees Atrial fibrillation with frequent ventricular-paced complexes Abnormal ECG No previous ECGs available Confirmed by MD FOREMAN JORGE ([id number]) on 12/13/2017 12:13:39 PM Performing Organization Address City/State/Zipcode Phone Number [facility] * CBC with platelet count + automated diff (12/13/2017 7:55 AM CDT) WBC 4.9 3.5 - 10.5 K/L [facility] RBC 4.30 (L) 4.63 - 6.08 M/L [facility] Hemoglobin 11.5 (L) 13.7 - 17.5 GM/DL [facility] Hematocrit 37.7 (L) 40.1 - 51.0 % [facility] MCV 87.7 79.0 - 92.2 fL [facility] MCH 26.7 25.7 - 32.2 pg [facility] MCHC 30.5 (L) 32.3 - 36.5 GM/DL [facility] RDW 14.4 11.6 - 14.4 % [facility] Platelets 171 150 - 450 K/CU MM [facility] MPV 8.8 (L) 9.4 - 12.4 fL [facility] nRBC 0 0 - 0 /100 WBC [facility] % Neutros 75 % [facility] % Lymphs 14 % [facility] % Monos 9 % [facility] % Eos 1 % [facility] % Baso 1 % [facility] # Neutros 3.67 1.78 - 5.38 K/L [facility] # Lymphs 0.70 (L) 1.32 - 3.57 K/L [facility] # Monos 0.43 0.30 - 0.82 K/L [facility] # Eos 0.03 (L) 0.04 - 0.54 K/L [facility] # Baso 0.03 0.01 - 0.08 K/L [facility] Immature 1 0 - 1 % [facility] Specimen Blood Performing Organization Address City/State/Zipcode Phone Number [facility] [address] [place] [address] MEDICAL [facility]ENTER * Type and screen, automated (12/13/2017 7:54 AM CDT) ABO/RH AUTOMATED (BEAKER) O POSITIVE [facility] Ab Scrn NEGATIVE [facility] Specimen Blood Performing Organization Address City/State/Zipcode Phone Number [facility] [address] [place], [place] [phone] MEDICAL [facility]ENTER * ECHOCARDIOGRAM REPORT - SCAN (12/11/2017 3:21 PM CDT) Narrative Performed At * Transesophageal echo (12/11/2017 8:12 AM CDT) Ejection Fraction [facility] MKCKESSON CPA Narrative Performed At Transesophageal Echocardiography Report (SUZETTE) [facility]ographics [facility] Patient Name EDGARDO LIPSCOMB Date of Study 12/11/2017 VLAD [id number] GenderMale Visit Number [id number] RaceUnknown [id number] Number OP Number Date of Birth1940 Referring Physician Delmy Aldrich Age77 year(s) Cutting Machine Tender Helper Monty 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 No LA appendage Thrombus visualized. Lbch-hh-ablqvqyp aortic regurgitation. Right ventricular systolic pressure is [...] Aortic ValveAortic valve is normal in appearance. Pqdh-xl-oflsquao aortic regurgitation. Mitral ValveMitral valve is normal in appearance. Mild mitral regurgitation. Tricuspid Scwo-qp-zlruixll tricuspid regurgitation. Right ventricular Valve systolic pressure [...] Study 12/11/2017 VLAD Gender Male Visit Number [id number] Race Unknown Room Number OP Number Date of 1940 Referring Physician Delmy Aldrich Age 77 year(s) Cutting Machine Tender Helper Monty Johnson Interpreting Noam Waite Physician Fellow [...] normal . No LA appendage Thrombus visualized. Sjwe-hq-zrfbbavo aortic regurgitation. Right ventricular systolic pressure is [...] Valve Aortic valve is normal in appearance. Vtvn-du-tfctxmnb aortic regurgitation. Mitral Valve Mitral valve is normal in appearance. Mild mitral regurgitation. Tricuspid Mgsm-ek-htmfyvwb tricuspid regurgitation. Right ventricular Valve systolic pressure [...] AM CDT) Narrative Performed At Addendum Begins [facility] REPORT STATUS:A Addendum: I agree with the previously described non vascular findings. Signed: Shamar Walters MD Report Verified Date/Time:12/11/2017 14:59:15 Reading Location: [place] [id number] Angio Body Reading Room Addendum Ends FINAL [...] by the interpreting physician using an independent (Tagstr) workstation. Please refer to the contrast sheet [...] dictated regarding the non-vascular findings by the Microfilmer Radiologist. Signed: Delvin Sorto MD Report Verified Date/Time:12/11/2017 08:33:56 Reading Location: [place] [id number] Cardiology MRI Procedure Note Interface, External Ris In - 12/11/2017 3:01 PM CDT Addendum Begins REPORT STATUS:A Addendum: I agree with the previously described non vascular findings. Signed: Shamar Walters MD Report Verified Date/Time: 12/11/2017 14:59:15 Reading Location: [facility] P048 Angio Body Reading Room [...] by the interpreting physician using an independent (Tagstr) workstation. Please refer to the contrast sheet [...] dictated regarding the non-vascular findings by the Microfilmer Radiologist. Signed: Delvin Sorto MD Report Verified Date/Time: 12/11/2017 08:33:56 Reading Location: [place] [address] Cardiology MRI Performing Organization Address City/[facility] Phone Number GE RIS * POC-Creatinine (12/11/2017 7:31 AM CDT) POC-Creatinine 1.2Comment: [facility] - 1.3 mg/dL [address] POC-EGFR 59 mL/min/1.73M2 [facility] Specimen Blood Performing Organization Address City/[facility]/[place] [address] [facility] * PT/aPTT (12/11/2017 6:49 AM CDT) Protime 23.8 (H) 11.7 - 14.7 seconds [facility] INR 2.1 <=5.9 [facility] PTT 56.1 (H) 22.5 - 36.0 seconds [facility] Specimen Blood Narrative Performed At RECOMMENDED COUMADIN/WARFARIN INR THERAPY RANGES [facility] STANDARD DOSE: 2.0 - 3.0 Includes: PROPHYLAXIS for venous thrombosis, [facility] systemic embolization; TREATMENT for venous thrombosis and/or pulmonary embolus. HIGH RISK: Target INR is 2.5-3.5 for patients with mechanical heart valves. Performing Organization Address City/State/Zipcode Phone Number [facility] [address], [place] [phone] [facility] after 05/28/2017 Insurance Payer Benefit Subscriber ID Type Phone Address Plan / Group MEDICARE MEDICARE A xxxxxxxxxx Medicare B BLUE CROSS/BLUE SHIELD BCBS xxxxxxxxxxxx PPO [phone] [address] [place] [address] [place] Advance Directives For more information, please contact: [address] [phone] Date Inactivated Comments Code Status Date Activated [...]
--- OUTSIDE RECORDS SUMMARY | 2018-05-29 01:10 | XMS REPORT | Clinical Summary ---
Author Author [facility] Organization [facility] Address Unknown Phone Unavailable Care Team Providers Care Barrel Rifler Broach Name Role Phone Kyle Dodge MD PCP Allergies Comments Active Allergy Reactions Severity Noted Date hallucinations Codeine 03/26/2018 Sore joints Smhkbwl-Cfe-Oxc Reductase Other (See Low 02/10/2016 Inhibitors Comments) [...] 0 capsule by mouth daily. Active omega 2-yzt-hek-fish oil Take 1 0 (FISH OIL) 100-160-1,000 [...] urinary obstruction (Primary Dx); Urinary retention 04/14/2018 [facility] General Internal Medicine - Encounter 04/15/2018 Petros Corado MD 04/14/2018 Orders Only Urology N/A 04/14/2018 Intake Access Eliel Barrera MD Goldfarb, Richard A., MD Urinary retention (Primary Dx); Chronic atrial fibrillation (HCC) 04/11/2018 [facility] General Internal Medicine - Encounter 04/13/2018 Areli Cruz APRN 04/03/2018 Anesthesia Urology Event Rene Riley MD CYSTOSCOPY, WITH TURP 04/03/2018 Surgery Urology Rene Riley MD Enlarged prostate with urinary obstruction 04/03/2018 [facility] General Internal Medicine - Encounter 04/04/2018 Rene Riley MD Preop examination (Primary Dx) 03/27/2018 Pre-Admit Pre-Admission Testing Testing Appointment after 05/28/2017 Social History Date Tobacco Use [...] Taken Vital Sign Reading 04/15/2018 6:28 PM [employer] Blood Pressure 158/95 04/15/2018 6:28 PM [employer] Pulse 84 04/15/2018 3:46 PM [employer] Temperature 36.6 C (97.9 F) 04/15/2018 3:46 PM [employer] Respiratory Rate 18 04/15/2018 3:46 PM [employer] Oxygen Saturation 92% - Inhaled Oxygen - Concentration 04/03/2018 7:32 AM [employer] Weight 96.6 kg (213 lb) 04/11/2018 9:50 AM [employer] Height 190.5 cm (6' 3") 04/03/2018 7:32 AM [employer] Body Mass Index 26.62 Plan of Treatment Health Maintenance Due Date Last Done Comments SHINGLES VACCINES (1 of 1992 2) PNEUMOCOCCAL 2007 POLYSACCHARIDE VACCINE AGE 65 AND OVER PNEUMOCOCCAL-13 2007 INFLUENZA VACCINE 12/06/2017 Procedures Comments Procedure Name Priority Date/Time Associated Diagnosis HEMOGLOBIN & HEMATOCRIT STAT 04/15/2018 5:30 PM [employer] POC GLUCOSE Routine 04/15/2018 12:40 PM [employer] POC GLUCOSE Routine 04/15/2018 7:29 AM [employer] CBC HEMOGRAM Routine 04/15/2018 5:00 AM [employer] ESTIMATED GFR Routine 04/15/2018 4:00 AM [employer] BASIC METABOLIC PANEL Routine 04/15/2018 4:00 AM [employer] POC GLUCOSE Routine 04/14/2018 9:00 PM [employer] POC GLUCOSE Routine 04/14/2018 4:58 PM [employer] POC GLUCOSE Routine 04/14/2018 1:07 PM [employer] PREPARE RBC Timed 04/14/2018 8:55 AM [employer] TYPE AND SCREEN Routine 04/14/2018 8:55 AM [employer] POC GLUCOSE Routine 04/14/2018 8:48 AM [employer] HC COMPLETE BLD COUNT Routine 04/14/2018 W/AUTO DIFF 5:15 AM [employer] ESTIMATED GFR Routine 04/14/2018 4:59 AM [employer] BASIC METABOLIC PANEL Routine 04/14/2018 4:59 AM [employer] POC GLUCOSE Routine 04/13/2018 11:26 AM [employer] ESTIMATED GFR Routine 04/13/2018 4:00 AM [employer] BASIC METABOLIC PANEL Routine 04/13/2018 4:00 AM [employer] HC COMPLETE BLD COUNT Routine 04/13/2018 W/AUTO DIFF 4:00 AM [employer] HEMOGLOBIN & HEMATOCRIT STAT 04/12/2018 4:45 PM [employer] HC COMPLETE BLD COUNT Routine 04/12/2018 W/AUTO DIFF 5:00 AM [employer] ESTIMATED GFR Routine 04/12/2018 4:00 AM [employer] BASIC METABOLIC PANEL Routine 04/12/2018 4:00 AM [employer] PREPARE RBC Timed 04/11/2018 12:30 PM [employer] ESTIMATED GFR STAT 04/11/2018 12:30 PM [employer] PARTIAL THROMBOPLASTIN STAT 04/11/2018 TIME (PTT) 12:30 PM [employer] PROTHROMBIN TIME WITH INR STAT 04/11/2018 12:30 PM [employer] COMPREHENSIVE METABOLIC STAT 04/11/2018 PANEL 12:30 PM [employer] TYPE AND SCREEN Routine 04/11/2018 12:30 PM [employer] HC COMPLETE BLD COUNT STAT 04/11/2018 W/AUTO DIFF 12:30 PM [employer] ECG 12-LEAD STAT 04/11/2018 9:53 AM [employer] POC GLUCOSE Routine 04/04/2018 11:37 AM [employer] POC GLUCOSE Routine 04/04/2018 7:27 AM [employer] POC GLUCOSE Routine 04/03/2018 9:39 PM [employer] POC GLUCOSE Routine 04/03/2018 6:48 PM [employer] POC GLUCOSE Routine 04/03/2018 5:06 PM [employer] POC GLUCOSE Routine 04/03/2018 2:12 PM [employer] SURGICAL PATHOLOGY Routine 04/03/2018 REQUEST 11:15 AM [employer] POC GLUCOSE Routine 04/03/2018 10:49 AM [employer] ID AN ELECTIVE Routine 04/03/2018 SU[address] AIRWAY 9:19 AM [employer] Procedure Note - Kristin Kong CRNA - 04/03/2018 9:19 AM [employer] ANESTHESIA INTUBATION Date/Time: 04/03/2018 9:19 AM Performed [...] TURP 04/03/2018 Enlarged prostate with 9:00 AM [employer] urinary obstruction Case Notes REQ 0900 START, POSSIBLE EXTENDED RECOVERY Special Needs REQ 0900 START, POSSIBLE EXTENDED RECOVERY POC GLUCOSE Routine 04/03/2018 7:09 AM [employer] CBC HEMOGRAM Routine 03/27/2018 Preop examination 3:30 PM [employer] ECG PRE/POST OP Routine 03/27/2018 Preop examination 2:45 PM [employer] ESTIMATED GFR Routine 03/27/2018 2:37 PM [employer] BASIC METABOLIC PANEL Routine 03/27/2018 Preop examination 2:37 PM [employer] HEMOGLOBIN A1C Routine 03/27/2018 Preop examination 2:37 PM [employer] TYPE AND SCREEN Routine 03/27/2018 Preop examination 2:37 PM [employer] URINALYSIS SCREEN AND Routine 03/27/2018 Preop examination MICROSCOPY, WITH REFLEX 2:37 PM [employer] TO CULTURE GRAM STAIN Routine 03/27/2018 2:37 PM [employer] URINE CULTURE Routine 03/27/2018 2:37 PM [employer] after 05/28/2017 Results * Hemoglobin & hematocrit (04/15/2018 5:30 PM [employer]) Only the most recent of 2 results within the time period is included. HGB 10.6 (L) 14.0 - 18.0 g/dL [facility] HCT 33.2 (L) 41.0 - 51.0 % [facility] Specimen Blood Performing Organization Address City/State/Zipcode Phone Number [facility] DEPARTMENT OF [address] [place] [address] PATHOLOGY AND GENOMIC MEDICINE [address] * POC glucose (04/15/2018 12:40 PM [employer]) Only the most recent of 15 results within the time period is included. POC glucose 138 (H) 65 - 99 mg/dL [facility] Comment: [facility] Notified RN Meter ID: [id number] Residue Furnace Operator: Sheriff Chuy Nieto Performing Organization Address City/[facility]/Zipcode Phone Number [facility] DEPARTMENT OF [address] [place] [address] PATHOLOGY AND GENOMIC MEDICINE [address] * CBC hemogram (04/15/2018 5:00 AM [employer]) Only the most recent of 2 results within the time period is included. WBC 4.31 (L) 4.50 - 11.00 k/uL [facility] RBC 2.69 (L) 4.40 - 6.00 m/uL [facility] HGB 7.2 (L) 14.0 - 18.0 g/dL [facility] HCT 22.9 (L) 41.0 - 51.0 % [facility] MCV 85.1 82.0 - 100.0 fL [facility] MCH 26.8 (L) 27.0 - 34.0 pg [facility] MCHC 31.4 31.0 - 37.0 g/dL [facility] RDW - SD 46.1 37.0 - 55.0 fL [facility] MPV 9.9 8.8 - 13.2 fL [facility] Platelet count 271 150 - 400 k/uL [facility] Nucleated RBC 0.00 /100 WBC [facility] Specimen Blood Performing Organization Address City/[facility]/Zipcode Phone Number [facility] DEPARTMENT OF [address] [place] [address] PATHOLOGY AND GENOMIC MEDICINE [address] * Estimated GFR (04/15/2018 4:00 AM [employer]) Only the most recent of 6 results within the time period is included. Estimated GFR 79 mL/min/1.73 m2 [facility] Comment: HOSPITAL CatergoryUnitsInte rpretation G1 >=90 Normal or high G2 60-89Mildly decreased [id number] Mildly to moderately decreased [id number] Moderately to severely decreased G4 15-29Severely decreased G5 <15Kidney failure The eGFR was calculated using the Chronic Kidney Disease Epidemiology Collaboration (CKD-EPI) equation. Interpretation is based on recommendations of the National Kidney Foundation-Kidney Disease Outcomes Quality Initiative (NKF-KDOQI) published in 2014. Specimen Plasma specimen Performing Organization Address City/State/Zipcode Phone Number [facility] [place] [address] PATHOLOGY AND GENOMIC MEDICINE [address] * Basic metabolic panel (04/15/2018 4:00 AM [employer] INST[employer]) Only the most recent of 5 results within the time period is included. Sodium 142 135 - 148 mEq/L [facility] Potassium 3.9 3.5 - 5.0 mEq/L [facility] Chloride 105 98 - 112 mEq/L [facility] CO2 25 24 - 31 mEq/L [facility] Anion gap 12@ANIO 7 - 15 mEq/L [facility] BUN 12 8 - 23 mg/dL [facility] Creatinine 0.93 0.70 - 1.20 mg/dL [facility] Glucose 102 (H) 65 - 99 mg/dL [facility] Calcium 8.5 (L) 8.8 - 10.2 mg/dL [facility] Specimen Plasma specimen Performing Organization Address [facility] Phone Number [facility] [place] [address] PATHOLOGY AND GENOMIC MEDICINE [address] * Prepare RBC, 2 Units (04/14/2018 8:55 AM [employer]) Only the most recent of 2 results within the time period is included. Product name Red Blood Cells -1, Leukored [facility] Unit number [id number] [facility] Product code [id number] [facility] Dispense status Transfused [facility] Blood expiration date [facility] Blood type code 5100 [facility] Blood type O POSITIVE [facility] Product name Red Blood Cells -1, Leukored [facility] Unit number [id number] [facility] Product code [id number] [facility] Dispense status Transfused [facility] Blood expiration date [facility] Blood type code 5100 [facility] Blood type O POSITIVE [facility] Performing Organization Address City/State/[facility]ode Phone Number [facility] DEPARTMENT OF [address] [place] [address] PATHOLOGY AND GENOMIC MEDICINE [facility] [address] [place] [address] * Type and screen (04/14/2018 8:55 AM [employer]) Only the most recent of 3 results within the time period is included. ABO grouping O [facility] Rh type POS [facility] Antibody screen (gel) NEG [facility] Specimen Blood Performing Organization Address City/State/Zipcode Phone Number [facility] DEPARTMENT OF [address] [place] [address] PATHOLOGY AND GENOMIC MEDICINE [address] * CBC with platelet and differential (04/14/2018 5:15 AM [employer]) Only the most recent of 4 results within the time period is included. WBC 5.45 4.50 - 11.00 k/uL [facility] RBC 2.69 (L) 4.40 - 6.00 m/uL [facility] HGB 7.3 (L) 14.0 - 18.0 g/dL [facility] HCT 23.2 (L) 41.0 - 51.0 % [facility] MCV 86.2 82.0 - 100.0 fL [facility] MCH 27.1 27.0 - 34.0 pg [facility] MCHC 31.5 31.0 - 37.0 g/dL [facility] RDW - SD 47.5 37.0 - 55.0 fL [facility] MPV 9.4 8.8 - 13.2 fL [facility] Platelet count 213 150 - 400 k/uL [facility] Nucleated RBC 0.00 /100 WBC [facility] Neutrophils 75.2 (H) 39.0 - 69.0 % [facility] Lymphocytes 14.9 (L) 25.0 - 45.0 % [facility] Monocytes 8.3 0.0 - 10.0 % [facility] Eosinophils 0.4 0.0 - 5.0 % [facility] Basophils 0.6 0.0 - 1.0 % [facility] Immature granulocytes 0.6Comment: "Immature 0.0 - 1.0 % [facility] granulocytes" (promyelocytes, HOSPITAL myelocytes, metamyelocytes) Specimen Blood Performing Organization Address City/State/Zipcode Phone Number [facility] DEPARTMENT OF [address] [place] [address] PATHOLOGY AND GENOMIC MEDICINE [address] * Partial thromboplastin time, activated (04/11/2018 12:30 PM [employer]) PTT 39.4 (H) 23.0 - 36.0 sec [facility] Comment: HOSPITAL PTT therapeutic range for unfractionated heparin is 61.0-112.0 seconds which corresponds to Anti-Xa 0.3-0.7 U/ml. Specimen Blood Performing Organization Address City/State/Zipcode Phone Number [facility] [place] [address] PATHOLOGY AND GENOMIC MEDICINE [address] * Prothrombin time with INR (04/11/2018 12:30 PM [employer]) Prothrombin time 19.8 (H) 11.5 - 14.5 sec [facility] INR 1.7 [facility] Comment: HOSPITAL The International Normalized Ratio (INR) is a therapeutic monitoring tool for patients who are stable on oral anticoagulant therapy. An INR of 2.0-3.0 is suggested for deep vein thrombosis/pulmonary embolism. Specimen Blood Performing Organization Address City/[facility]/Zipcode Phone Number [facility] [place] [address] PATHOLOGY AND GENOMIC MEDICINE [address] * Comprehensive metabolic panel (04/11/2018 12:30 PM [employer]) Sodium 141 135 - 148 mEq/L [facility] Potassium 4.4 3.5 - 5.0 mEq/L [facility] Chloride 102 98 - 112 mEq/L [facility] CO2 25 24 - 31 mEq/L [facility] Anion gap 14@ANIO 7 - 15 mEq/L [facility] BUN 12 8 - 23 mg/dL [facility] Creatinine 1.02 0.70 - 1.20 mg/dL [facility] Glucose 123 (H) 65 - 99 mg/dL [facility] Calcium 8.7 (L) 8.8 - 10.2 mg/dL [facility] Protein 5.9 (L) 6.3 - 8.3 g/dL [facility] Comment: HOSPITAL Fowler 4.6-7.0 g/dL 1 week 4.4-7.6 g/dL 7 months-1year 5.1-7.3 g/dL 1-2 years5.6-7 .5 g/dL >3 years6.0-8 .0 g/dL 18-150 6.3-8.3 g/dL Albumin 3.4 (L) 3.5 - 5.0 g/dL [facility] A/G ratio 1.4 0.7 - 3.8 [facility] Alkaline phosphatase 80 40 - 129 U/L [facility] AST 32 10 - 50 U/L [facility] ALT 52 (H) 5 - 50 U/L [facility] Total bilirubin 0.8 0.0 - 1.2 mg/dL [facility] Specimen Plasma specimen Performing Organization Address City/State/[facility] Mex[facility]ode Phone Number [facility] DEPARTMENT OF [address] [place] [address] PATHOLOGY AND GENOMIC MEDICINE [address] * ECG 12 lead (04/11/2018 9:53 AM [employer]) Ventricular rate 144 [facility] Atrial rate 141 [facility] QRSD interval 76 [facility] QT interval 264 [facility] QTC interval 408 [facility] QRS axis 1 -19 [facility] T wave axis 89 [facility] EKG impression Atrial fibrillation with rapid [facility] ventricular response-Nonspecific ST and T wave abnormality-Abnormal ECG-In automated comparison with ECG of 27-MAR-2018 14:45,-Vent. rate has increased BY50 BPM- Narrative Performed At Performing Organization Address City/State/Zipcode Phone Number [place] [phone] [place] [address] * Surgical pathology request (04/03/2018 11:15 AM [employer]) [facility] DEPARTMENT OF PATHOLOGY AND GENOMIC MEDICINE Surgical pathology report See link below for PDF Lab [facility] DEPARTMENT OF Report PATHOLOGY AND GENOMIC MEDICINE Result status This is Final Report for [facility] DEPARTMENT OF [id number] PATHOLOGY AND GENOMIC MEDICINE Performing Organization Address City/State/Zipcode Phone Number [facility] DEPARTMENT OF [address] [place] [phone] PATHOLOGY AND GENOMIC MEDICINE * ECG Pre/Post Op (03/27/2018 2:45 PM [employer]ER) Ventricular rate 94 [facility] Atrial rate 159 [facility] QRSD interval 88 [facility] QT interval 342 [facility] QTC interval 427 [facility] QRS axis 1 3 [facility] T wave axis 77 [facility] EKG impression Atrial [facility] fibrillation-Nonspecific ST and T wave abnormality , probably digitalis effect-Abnormal ECG-No previous ECGs available- Narrative Performed At Performing Organization Address City/[facility] [place] [address] * Urinalysis screen and microscopy, with reflex to culture (03/27/2018 2:37 PM [employer]) Specimen site Clean catch [facility] Color, UA Red [facility] Appearance, UA Cloudy [facility] Specific gravity, UA 1.017 1.001 - 1.035 [facility] pH, UA 5.0 5.0 - 8.5 [facility] Protein, UA 2+ (A) Negative [facility] Glucose, UA Negative Negative [facility] Ketones, UA Negative Negative [facility] Bilirubin, UA Negative Negative [facility] Blood, UA Large (A) Negative [facility] Nitrite, UA Negative Negative [facility] Urobilinogen, UA <2.0 <2.0 [facility] Leukocyte esterase, UA Moderate (A) Negative [facility] WBC, UA 96 (H) 0 - 1 /HPF [facility] RBC, UA >180 (H) 0 - 5 /HPF [facility] Bacteria, UA Few None seen [facility] Yeast, UA None seen [facility] Yeast with pseudohyphae, None seen [facility] Hyaline casts, UA 12 /LPF [facility] Specimen Urine Performing Organization Address City/State/Zipcode Phone Number [facility] DEPARTMENT OF [address] [place] [phone] PATHOLOGY AND GENOMIC MEDICINE [address] * Gram stain (03/27/2018 2:37 PM [employer] INST[employer]ER) Gram stain result Many Gram positive rods [facility] Many Gram positive cocci in HOSPITAL pairs Few WBC's Comment: Specimen Information Specimen Source: Urine Specimen Site: Clean catch Specimen Urine Performing Organization Address City/[facility] Mex[facility]ode Phone Number [facility] DEPARTMENT OF [address] [place] [address] PATHOLOGY AND GENOMIC MEDICINE [address] * Urine culture (03/27/2018 2:37 PM [employer] INST[employer]ER) Urine culture isolate Enterococcus faecalis [facility] >10-5 cfu/ml [facility] The performance characteristics of this assay on this isolate were validated by the Microbiology Laboratory at [facility].This source has not been approved by the [...] mcg/mL: Susceptible Enterococcus faecalis Performing Organization Address City/[facility] Phone Number [facility] DEPARTMENT OF [address] [place] [address] PATHOLOGY AND GENOMIC MEDICINE [address] * Hemoglobin A1c (03/27/2018 2:37 PM [employer]ER) Hemoglobin A1C 6.3 (H) 4.0 - 5.6 % [facility] Comment: HOSPITAL HbA1c cutoffs for diagnosing diabetes: 4.0% - 5.6%=normal 5.7% - 6.4%=increased risk for diabetes (prediabetes) >=6.5%=diabetes Goals for glycemic control (ADA 2016) < 7.0%Target for non adults with diabetes. More or less stringent targets may be appropriate for individual patients. <7.5% Target for Children and adolescents with type 1 diabetes. Specimen Blood Performing Organization Address City/State/Zipcode Phone Number [facility] DEPARTMENT OF [address] [place] [address] PATHOLOGY AND GENOMIC MEDICINE [facility] [address] [place] [address] HOSPITAL after 05/28/2017 Insurance Payer Benefit Subscriber ID Type Phone Address Plan / Group MEDICARE MEDICARE xxxxxxxxxxx Medicare [place], [place] PART A AND B BCBS BCBS xxxxxxxxxxxx Indemnity PAR/TRAD PLAN Advance Directives Patient has advance care planning documents on file. For more information, bryce smith contact: [facility] [address] [place] [phone]
[2018-05-29] MEDS ORDERED: ESMOLOL HCL 2500MG/250 ML 250 ML IV PRN (01:30)
[2018-05-29] MEDS ORDERED: DIGOXIN INJ 0.25 MG/ML 2 ML AMP IV STA (01:30)
[2018-05-29 01:50] LABS: BASOPHILS % 0.6 % (0.0-1.0); EOSINOPHILS % 0.4 % (0.0-6.0); HEMATOCRIT 29.8 % (38.2-49.6); HEMOGLOBIN 8.6 g/dL (14.0-18.0); LYMPHOCYTES # (AUTO) 1.3 (1.0-3.2); LYMPHOCYTES % 18.9 % (18.0-39.1); MEAN CORPUSCULAR HEMOGLOBIN 25.9 pg (28-32); MEAN CORPUSCULAR HGB CONC 28.9 g/dL (31-35); MEAN CORPUSCULAR VOLUME 89.8 fL (81-99); MONOCYTES # (AUTO) 0.6 (0.2-0.8); MONOCYTES % 9.2 % (4.4-11.3); NEUTROPHILS # (AUTO) 4.7 (2.1-6.9); NEUTROPHILS % 70.3 % (38.7-80.0); PLATELET COUNT 258 x10e3/uL (140-360); RED BLOOD COUNT 3.32 x10e6/uL (4.3-5.7); RED CELL DISTRIBUTION WIDTH 19.8 % (11.7-14.4)
[2018-05-29 01:57] LABS: INR 1.3; PARTIAL THROMBOPLASTIN TIME 37.1 seconds (23.8-35.5); PROTHROMBIN TIME 17.3 seconds (11.9-14.5)
[2018-05-29 02:04] LABS: ALBUMIN 3.2 g/dL (3.5-5.0); ALBUMIN/GLOBULIN RATIO 1.2 (0.8-2.0); ANION GAP 15.9 mmol/L (8-16); CALCIUM 8.3 mg/dL (8.4-10.2); CREATININE, SERUM 1.43 mg/dL (0.72-1.25); POTASSIUM 4.9 mmol/L (3.5-5.1)
[2018-05-29 02:12] LABS: CREATINE KINASE MB 2.2 ng/mL (0-5.0)
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
--- NOTE | 2018-05-29 02:30 | NUR ---
HR 90-105'S. DR VOSS INFORMED. ORDERED TO HOLD STARTING ESMOLOL AND MONITOR HR.
[2018-05-29] MEDS ORDERED: ONDANSETRON HCL INJ 2MG/ML 2ML 2 MG/ML VIAL IV PRN (02:45)
[2018-05-29] MEDS ORDERED: SODIUM CHLORIDE FLUSH 10 ML SYR INJ PRN (02:45)
[2018-05-29] MEDS ORDERED: DEXTROSE 50% SYRINGE 50 ML IV PRN (02:45)
--- OUTSIDE RECORDS SUMMARY | 2018-05-29 03:13 | XMS REPORT | Clinical Summary ---
Author Author [facility] Address Unknown Phone Unavailable Care Team Providers Care Roll Form Operator Name Role Phone Kyle Dodge MD PCP Allergies Comments Active Allergy Reactions Severity Noted Date hallucinations Codeine 03/26/2018 Sore joints Begzrkc-Mfa-Yes Reductase Other (See Low 02/10/2016 Inhibitors Comments) [...] 0 capsule by mouth daily. Active omega 4-ohv-agb-fish oil Take 1 0 (FISH OIL) 100-160-1,000 [...] urinary obstruction (Primary Dx); Urinary retention 04/14/2018 [facility] General Internal Medicine - Encounter 04/15/2018 Petros Corado MD 04/14/2018 Orders Only Urology N/A 04/14/2018 Intake Access Eliel Barrera MD Goldfarb, Richard A., MD Urinary retention (Primary Dx); Chronic atrial fibrillation (HCC) 04/11/2018 [facility] General Internal Medicine - Encounter 04/13/2018 Areli Cruz APRN 04/03/2018 Anesthesia Urology Event Rene Riley MD CYSTOSCOPY, WITH TURP 04/03/2018 Surgery Urology Rene Riley MD Enlarged prostate with urinary obstruction 04/03/2018 [facility] General Internal Medicine - Encounter [...] Taken Vital Sign Reading 04/15/2018 6:28 PM GAMING FLOOR SUPERVISOR Blood Pressure 158/95 04/15/2018 6:28 PM GAMING FLOOR SUPERVISOR Pulse 84 04/15/2018 3:46 PM GAMING FLOOR SUPERVISOR Temperature 36.6 C (97.9 F) 04/15/2018 3:46 PM GAMING FLOOR SUPERVISOR Respiratory Rate 18 04/15/2018 3:46 PM GAMING FLOOR SUPERVISOR Oxygen Saturation 92% - Inhaled Oxygen - Concentration 04/03/2018 7:32 AM GAMING FLOOR SUPERVISOR Weight 96.6 kg (213 lb) 04/11/2018 9:50 AM GAMING FLOOR SUPERVISOR Height 190.5 cm (6' 3") 04/03/2018 7:32 AM GAMING FLOOR SUPERVISOR Body Mass Index 26.62 Plan of Treatment Health Maintenance Due Date Last Done Comments SHINGLES VACCINES (1 of 1992 2) PNEUMOCOCCAL 2007 POLYSACCHARIDE VACCINE AGE 65 AND OVER PNEUMOCOCCAL-13 2007 INFLUENZA VACCINE 12/06/2017 Procedures Comments Procedure Name Priority Date/Time Associated Diagnosis HEMOGLOBIN & HEMATOCRIT STAT 04/15/2018 5:30 PM GAMING FLOOR SUPERVISOR POC GLUCOSE Routine 04/15/2018 12:40 PM GAMING FLOOR SUPERVISOR POC GLUCOSE Routine 04/15/2018 7:29 AM GAMING FLOOR SUPERVISOR CBC HEMOGRAM Routine 04/15/2018 5:00 AM GAMING FLOOR SUPERVISOR ESTIMATED GFR Routine 04/15/2018 4:00 AM GAMING FLOOR SUPERVISOR BASIC METABOLIC PANEL Routine 04/15/2018 4:00 AM GAMING FLOOR SUPERVISOR POC GLUCOSE Routine 04/14/2018 9:00 PM GAMING FLOOR SUPERVISOR POC GLUCOSE Routine 04/14/2018 4:58 PM GAMING FLOOR SUPERVISOR POC GLUCOSE Routine 04/14/2018 1:07 PM GAMING FLOOR SUPERVISOR PREPARE RBC Timed 04/14/2018 8:55 AM GAMING FLOOR SUPERVISOR TYPE AND SCREEN Routine 04/14/2018 8:55 AM GAMING FLOOR SUPERVISOR POC GLUCOSE Routine 04/14/2018 8:48 AM GAMING FLOOR SUPERVISOR HC COMPLETE BLD COUNT Routine 04/14/2018 W/AUTO DIFF 5:15 AM GAMING FLOOR SUPERVISOR ESTIMATED GFR Routine 04/14/2018 4:59 AM GAMING FLOOR SUPERVISOR BASIC METABOLIC PANEL Routine 04/14/2018 4:59 AM GAMING FLOOR SUPERVISOR POC GLUCOSE Routine 04/13/2018 11:26 AM GAMING FLOOR SUPERVISOR ESTIMATED GFR Routine 04/13/2018 4:00 AM GAMING FLOOR SUPERVISOR BASIC METABOLIC PANEL Routine 04/13/2018 4:00 AM GAMING FLOOR SUPERVISOR HC COMPLETE BLD COUNT Routine 04/13/2018 W/AUTO DIFF 4:00 AM GAMING FLOOR SUPERVISOR HEMOGLOBIN & HEMATOCRIT STAT 04/12/2018 4:45 PM GAMING FLOOR SUPERVISOR HC COMPLETE BLD COUNT Routine 04/12/2018 W/AUTO DIFF 5:00 AM GAMING FLOOR SUPERVISOR ESTIMATED GFR Routine 04/12/2018 4:00 AM GAMING FLOOR SUPERVISOR BASIC METABOLIC PANEL Routine 04/12/2018 4:00 AM GAMING FLOOR SUPERVISOR PREPARE RBC Timed 04/11/2018 12:30 PM GAMING FLOOR SUPERVISOR ESTIMATED GFR STAT 04/11/2018 12:30 PM GAMING FLOOR SUPERVISOR PARTIAL THROMBOPLASTIN STAT 04/11/2018 TIME (PTT) 12:30 PM GAMING FLOOR SUPERVISOR PROTHROMBIN TIME WITH INR STAT 04/11/2018 12:30 PM GAMING FLOOR SUPERVISOR COMPREHENSIVE METABOLIC STAT 04/11/2018 PANEL 12:30 PM GAMING FLOOR SUPERVISOR TYPE AND SCREEN Routine 04/11/2018 12:30 PM GAMING FLOOR SUPERVISOR HC COMPLETE BLD COUNT STAT 04/11/2018 W/AUTO DIFF 12:30 PM GAMING FLOOR SUPERVISOR ECG 12-LEAD STAT 04/11/2018 9:53 AM GAMING FLOOR SUPERVISOR POC GLUCOSE Routine 04/04/2018 11:37 AM GAMING FLOOR SUPERVISOR POC GLUCOSE Routine 04/04/2018 7:27 AM GAMING FLOOR SUPERVISOR POC GLUCOSE Routine 04/03/2018 9:39 PM GAMING FLOOR SUPERVISOR POC GLUCOSE Routine 04/03/2018 6:48 PM GAMING FLOOR SUPERVISOR POC GLUCOSE Routine 04/03/2018 5:06 PM GAMING FLOOR SUPERVISOR POC GLUCOSE Routine 04/03/2018 2:12 PM GAMING FLOOR SUPERVISOR SURGICAL PATHOLOGY Routine 04/03/2018 REQUEST 11:15 AM GAMING FLOOR SUPERVISOR POC GLUCOSE Routine 04/03/2018 10:49 AM GAMING FLOOR SUPERVISOR CO AN ELECTIVE Routine 04/03/2018 SUPR[address]LOTTIC AIRWAY 9:19 AM GAMING FLOOR SUPERVISOR Procedure Note - Kristin Kong CRNA - 04/03/2018 9:19 AM GAMING FLOOR SUPERVISOR ANESTHESIA INTUBATION Date/Time: 04/03/2018 9:19 AM Performed [...] TURP 04/03/2018 Enlarged prostate with 9:00 AM GAMING FLOOR SUPERVISOR urinary obstruction Case Notes REQ 0900 START, POSSIBLE EXTENDED RECOVERY Special Needs REQ 0900 START, POSSIBLE EXTENDED RECOVERY POC GLUCOSE Routine 04/03/2018 7:09 AM GAMING FLOOR SUPERVISOR CBC HEMOGRAM Routine 03/27/2018 Preop examination 3:30 PM GAMING FLOOR SUPERVISOR ECG PRE/POST OP Routine 03/27/2018 Preop examination 2:45 PM GAMING FLOOR SUPERVISOR ESTIMATED GFR Routine 03/27/2018 2:37 PM GAMING FLOOR SUPERVISOR BASIC METABOLIC PANEL Routine 03/27/2018 Preop examination 2:37 PM GAMING FLOOR SUPERVISOR HEMOGLOBIN A1C Routine 03/27/2018 Preop examination 2:37 PM GAMING FLOOR SUPERVISOR TYPE AND SCREEN Routine 03/27/2018 Preop examination 2:37 PM GAMING FLOOR SUPERVISOR URINALYSIS SCREEN AND Routine 03/27/2018 Preop examination MICROSCOPY, WITH REFLEX 2:37 PM GAMING FLOOR SUPERVISOR TO CULTURE GRAM STAIN Routine 03/27/2018 2:37 PM [employer]AMING FLOOR SUPERVISOR URINE CULTURE Routine 03/27/2018 2:37 PM GAMING FLOOR SUPERVISOR after 05/28/2017 Results * Hemoglobin & hematocrit (04/15/2018 5:30 PM GAMING FLOOR SUPERVISOR) Only the most recent of 2 results within the time period is included. HGB 10.6 (L) 14.0 - 18.0 g/dL [facility] HCT 33.2 (L) 41.0 - 51.0 % [facility] Specimen Blood Performing Organization Address City/State/Zipcode Phone Number [facility] DEPARTMENT OF [address] [place] [address] PATHOLOGY AND GENOMIC MEDICINE [address] * POC glucose (04/15/2018 12:40 PM GAMING FLOOR SUPERVISOR) Only the most recent of 15 results within the time period is included. POC glucose 138 (H) 65 - 99 mg/dL [facility] Comment: [facility] Notified RN Meter ID: [id number] Leather Belt Maker: Sheriff Chuy Nieto Performing Organization Address City/[facility]/Zipcode Phone Number [facility] DEPARTMENT OF [address] [place] [address] PATHOLOGY AND GENOMIC MEDICINE [address] * CBC hemogram (04/15/2018 5:00 AM GAMING FLOOR SUPERVISOR) Only the most recent of 2 results within the time period is included. WBC 4.31 (L) 4.50 - 11.00 k/uL [facility] RBC 2.69 (L) 4.40 - 6.00 m/uL [facility] HGB 7.2 (L) 14.0 - 18.0 g/dL [facility] HCT 22.9 (L) 41.0 - 51.0 % [facility] MCV 85.1 82.0 - 100.0 fL [facility] MCH 26.8 (L) 27.0 - 34.0 pg [facility] MCHC 31.4 31.0 - 37.0 g/dL [facility] RDW - SD 46.1 37.0 - 55.0 fL [facility] MPV 9.9 8.8 - 13.2 fL [facility] Platelet count 271 150 - 400 k/uL [facility] Nucleated RBC 0.00 /100 WBC [facility] Specimen Blood Performing Organization Address City/[facility]/Zipcode Phone Number [facility] DEPARTMENT OF [address] [place] [address] PATHOLOGY AND GENOMIC MEDICINE [address] * Estimated GFR (04/15/2018 4:00 AM GAMING FLOOR SUPERVISOR) Only the most recent of 6 results within the time period is included. Estimated GFR 79 mL/min/1.73 m2 [facility] Comment: HOSPITAL CatergoryUnitsInte rpretation G1 >=90 Normal or high G2 60-89Mildly decreased [id number] Mildly to moderately decreased [id number] Moderately to severely decreased G4 15-29Severely decreased G5 <15Kidney failure The eGFR was calculated using the Chronic Kidney Disease Epidemiology Collaboration (CKD-EPI) equation. Interpretation is based on recommendations of the National Kidney Foundation-Kidney Disease Outcomes Quality Initiative (NKF-KDOQI) published in 2014. Specimen Plasma specimen Performing Organization Address City/State/Zipcode Phone Number [facility] [place] [address] PATHOLOGY AND GENOMIC MEDICINE [address] * Basic metabolic panel (04/15/2018 4:00 AM GAMING FLOOR SUPERVISOR) Only the most recent of 5 results within the time period is included. Sodium 142 135 - 148 mEq/L [facility] Potassium 3.9 3.5 - 5.0 mEq/L [facility] Chloride 105 98 - 112 mEq/L [facility] CO2 25 24 - 31 mEq/L [facility] Anion gap 12@ANIO 7 - 15 mEq/L [facility] BUN 12 8 - 23 mg/dL [facility] Creatinine 0.93 0.70 - 1.20 mg/dL [facility] Glucose 102 (H) 65 - 99 mg/dL [facility] Calcium 8.5 (L) 8.8 - 10.2 mg/dL [facility] Specimen Plasma specimen Performing Organization Address [facility] Phone Number [facility] [place] [address] PATHOLOGY AND GENOMIC MEDICINE [address] * Prepare RBC, 2 Units (04/14/2018 8:55 AM GAMING FLOOR SUPERVISOR) Only the most recent of 2 results within the time period is included. Product name Red Blood Cells -1, Leukored [facility] Unit number [id number] [facility] Product code [id number] [facility] Dispense status Transfused [facility] Blood expiration date [facility] Blood type code 5100 [facility] Blood type O POSITIVE [facility] Product name Red Blood Cells -1, Leukored [facility] Unit number [id number] [facility] Product code [id number] [facility] Dispense status Transfused [facility] Blood expiration date [facility] Blood type code 5100 [facility] Blood type O POSITIVE [facility] Performing Organization Address City/State/[facility] Centercode Phone Number [facility] DEPARTMENT OF [address] [place] [address] PATHOLOGY AND GENOMIC MEDICINE [facility] [address] [place] [address] * Type and screen (04/14/2018 8:55 AM GAMING FLOOR SUPERVISOR) Only the most recent of 3 results within the time period is included. ABO grouping O [facility] Rh type POS [facility] Antibody screen (gel) NEG [facility] Specimen Blood Performing Organization Address City/State/Zipcode Phone Number [facility] DEPARTMENT OF [address] [place] [address] PATHOLOGY AND GENOMIC MEDICINE [address] * CBC with platelet and differential (04/14/2018 5:15 AM GAMING FLOOR SUPERVISOR) Only the most recent of 4 results within the time period is included. WBC 5.45 4.50 - 11.00 k/uL [facility] RBC 2.69 (L) 4.40 - 6.00 m/uL [facility] HGB 7.3 (L) 14.0 - 18.0 g/dL [facility] HCT 23.2 (L) 41.0 - 51.0 % [facility] MCV 86.2 82.0 - 100.0 fL [facility] MCH 27.1 27.0 - 34.0 pg [facility] MCHC 31.5 31.0 - 37.0 g/dL [facility] RDW - SD 47.5 37.0 - 55.0 fL [facility] MPV 9.4 8.8 - 13.2 fL [facility] Platelet count 213 150 - 400 k/uL [facility] Nucleated RBC 0.00 /100 WBC [facility] Neutrophils 75.2 (H) 39.0 - 69.0 % [facility] Lymphocytes 14.9 (L) 25.0 - 45.0 % [facility] Monocytes 8.3 0.0 - 10.0 % [facility] Eosinophils 0.4 0.0 - 5.0 % [facility] Basophils 0.6 0.0 - 1.0 % [facility] Immature granulocytes 0.6Comment: "Immature 0.0 - 1.0 % [facility] granulocytes" (promyelocytes, HOSPITAL myelocytes, metamyelocytes) Specimen Blood Performing Organization Address City/State/Zipcode Phone Number [facility] DEPARTMENT OF [address] [place] [address] PATHOLOGY AND GENOMIC MEDICINE [address] * Partial thromboplastin time, activated (04/11/2018 12:30 PM GAMING FLOOR SUPERVISOR) PTT 39.4 (H) 23.0 - 36.0 sec [facility] Comment: HOSPITAL PTT therapeutic range for unfractionated heparin is 61.0-112.0 seconds which corresponds to Anti-Xa 0.3-0.7 U/ml. Specimen Blood Performing Organization Address City/State/Zipcode Phone Number [facility] [place] [address] PATHOLOGY AND GENOMIC MEDICINE [address] * Prothrombin time with INR (04/11/2018 12:30 PM GAMING FLOOR SUPERVISOR) Prothrombin time 19.8 (H) 11.5 - 14.5 sec [facility] INR 1.7 [facility] Comment: HOSPITAL The International Normalized Ratio (INR) is a therapeutic monitoring tool for patients who are stable on oral anticoagulant therapy. An INR of 2.0-3.0 is suggested for deep vein thrombosis/pulmonary embolism. Specimen Blood Performing Organization Address City/[facility]/Zipcode Phone Number [facility] [place] [address] PATHOLOGY AND GENOMIC MEDICINE [address] * Comprehensive metabolic panel (04/11/2018 12:30 PM GAMING FLOOR SUPERVISOR) Sodium 141 135 - 148 mEq/L [facility] Potassium 4.4 3.5 - 5.0 mEq/L [facility] Chloride 102 98 - 112 mEq/L [facility] CO2 25 24 - 31 mEq/L [facility] Anion gap 14@ANIO 7 - 15 mEq/L [facility] BUN 12 8 - 23 mg/dL [facility] Creatinine 1.02 0.70 - 1.20 mg/dL [facility] Glucose 123 (H) 65 - 99 mg/dL [facility] Calcium 8.7 (L) 8.8 - 10.2 mg/dL [facility] Protein 5.9 (L) 6.3 - 8.3 g/dL [facility] Comment: HOSPITAL [place] 4.6-7.0 g/dL 1 week 4.4-7.6 g/dL 7 months-1year 5.1-7.3 g/dL 1-2 years5.6-7 .5 g/dL >3 years6.0-8 .0 g/dL 18-150 6.3-8.3 g/dL Albumin 3.4 (L) 3.5 - 5.0 g/dL [facility] A/G ratio 1.4 0.7 - 3.8 [facility] Alkaline phosphatase 80 40 - 129 U/L [facility] AST 32 10 - 50 U/L [facility] ALT 52 (H) 5 - 50 U/L [facility] Total bilirubin 0.8 0.0 - 1.2 mg/dL [facility] Specimen Plasma specimen Performing Organization Address City/State/[facility] Cancer Centercode Phone Number [facility] DEPARTMENT OF [address] [place] [address] PATHOLOGY AND GENOMIC MEDICINE [address] * ECG 12 lead (04/11/2018 9:53 AM GAMING FLOOR SUPERVISOR) Ventricular rate 144 [facility] Atrial rate 141 [facility] QRSD interval 76 [facility] QT interval 264 [facility] QTC interval 408 [facility] QRS axis 1 -19 [facility] T wave axis 89 [facility] EKG impression Atrial fibrillation with rapid [facility] ventricular response-Nonspecific ST and T wave abnormality-Abnormal ECG-In automated comparison with ECG of 27-MAR-2018 14:45,-Vent. rate has increased BY50 BPM- Narrative Performed At Performing Organization Address City/State/Zipcode Phone Number [place] [phone] [place] [address] * Surgical pathology request (04/03/2018 11:15 AM GAMING FLOOR SUPERVISOR) [facility] DEPARTMENT OF PATHOLOGY AND GENOMIC MEDICINE Surgical pathology report See link below for PDF Lab [facility] DEPARTMENT OF Report PATHOLOGY AND GENOMIC MEDICINE Result status This is Final Report for [facility] DEPARTMENT OF [id number] PATHOLOGY AND GENOMIC MEDICINE Performing Organization Address City/State/Zipcode Phone Number [facility] DEPARTMENT OF [address] [place] [phone] PATHOLOGY AND GENOMIC MEDICINE * ECG Pre/Post Op (03/27/2018 2:45 PM GAMING FLOOR SUPERVISOR) Ventricular rate 94 [facility] Atrial rate 159 [facility] QRSD interval 88 [facility] QT interval 342 [facility] QTC interval 427 [facility] QRS axis 1 3 [facility] T wave axis 77 [facility] EKG impression Atrial [facility] MUSE fibrillation-Nonspecific ST and T wave abnormality , probably digitalis effect-Abnormal ECG-No previous ECGs available- Narrative Performed At Performing Organization Address City/[facility] [place] [address] * Urinalysis screen and microscopy, with reflex to culture (03/27/2018 2:37 PM GAMING FLOOR SUPERVISOR) Specimen site Clean catch [facility] Color, UA Red [facility] Appearance, UA Cloudy [facility] Specific gravity, UA 1.017 1.001 - 1.035 [facility] pH, UA 5.0 5.0 - 8.5 [facility] Protein, UA 2+ (A) Negative [facility] Glucose, UA Negative Negative [facility] Ketones, UA Negative Negative [facility] Bilirubin, UA Negative Negative [facility] Blood, UA Large (A) Negative [facility] Nitrite, UA Negative Negative [facility] Urobilinogen, UA <2.0 <2.0 [facility] Leukocyte esterase, UA Moderate (A) Negative [facility] WBC, UA 96 (H) 0 - 1 /HPF [facility] RBC, UA >180 (H) 0 - 5 /HPF [facility] Bacteria, UA Few None seen [facility] Yeast, UA None seen [facility] Yeast with pseudohyphae, None seen [facility] Hyaline casts, UA 12 /LPF [facility] Specimen Urine Performing Organization Address City/State/Zipcode Phone Number [facility] DEPARTMENT OF [address] [place] [phone] PATHOLOGY AND GENOMIC MEDICINE [address] * Gram stain (03/27/2018 2:37 PM GAMING FLOOR SUPERVISOR) Gram stain result Many Gram positive rods [facility] Many Gram positive cocci in HOSPITAL pairs Few WBC's Comment: Specimen Information Specimen Source: Urine Specimen Site: Clean catch Specimen Urine Performing Organization Address City/[facility] Centercode Phone Number [facility] DEPARTMENT OF [address] [place] [address] PATHOLOGY AND GENOMIC MEDICINE [address] * Urine culture (03/27/2018 2:37 PM GAMING FLOOR SUPERVISOR) Urine culture isolate Enterococcus faecalis [facility] >10-5 cfu/ml [facility] The performance characteristics of this assay on this isolate were validated by the Microbiology Laboratory at [facility].This source has not been approved by [...] mcg/mL: Susceptible Enterococcus faecalis Performing Organization Address City/[facility] Centercode Phone Number [facility] DEPARTMENT OF [address] [place] [address] PATHOLOGY AND GENOMIC MEDICINE [address] * Hemoglobin A1c (03/27/2018 2:37 PM GAMING FLOOR SUPERVISOR) Hemoglobin A1C 6.3 (H) 4.0 - 5.6 % [facility] Comment: HOSPITAL HbA1c cutoffs for diagnosing diabetes: 4.0% - 5.6%=normal 5.7% - 6.4%=increased risk for diabetes (prediabetes) >=6.5%=diabetes Goals for glycemic control (ADA 2016) < 7.0%Target for non adults with diabetes. More or less stringent targets may be appropriate for individual patients. <7.5% Target for Children and adolescents with type 1 diabetes. Specimen Blood Performing Organization Address City/State/Zipcode Phone Number [facility] DEPARTMENT OF [address] [place] [address] PATHOLOGY AND GENOMIC MEDICINE [facility] [address] [place] [address] HOSPITAL after 05/28/2017 Insurance Payer Benefit Subscriber ID Type Phone Address Plan / Group MEDICARE MEDICARE xxxxxxxxxxx Medicare [place], [place] PART A AND B BCBS BCBS xxxxxxxxxxxx Indemnity PAR/TRAD PLAN Advance Directives Patient has advance care planning documents on file. For more information, bryce smith contact: [facility] [address] [place] [phone]
--- OUTSIDE RECORDS SUMMARY | 2018-05-29 03:13 | XMS REPORT | Clinical Summary ---
Author Author [facility] Address Unknown Phone Unavailable Care Team Providers Care Rail Crew Member Name Role Phone Kyle Dodge MD PCP Allergies Comments Active Allergy Reactions Severity Noted Date HALLUCINATIONS Codeine 02/15/2016 Sore joints Rbjpbyx-Wqe-Smp Reductase Other (See Low 02/10/2016 Inhibitors Comments) [...] Date A-fib 08/24/2016 CAD (coronary artery disease), tunica-biloxi coronary artery 02/10/2016 DM (diabetes mellitus) type [...] ms QTC Calculatio n(Bazett) 456 ms R [place] -7 degrees T [place] 35 degrees Atrial fibrillati on with frequent [...] CDT) WBC 7.8 3.5 - 10.5 K/L [facility] RBC 4.14 (L) 4.63 - 6.08 M/L [facility] Hemoglobin 11.2 (L) 13.7 - 17.5 GM/DL [facility] Hematocrit 36.7 (L) 40.1 - 51.0 % [facility] MCV 88.6 79.0 - 92.2 fL [facility] MCH 27.1 25.7 - 32.2 pg [facility] MCHC 30.5 (L) 32.3 - 36.5 GM/DL [facility] RDW 14.6 (H) 11.6 - 14.4 % [facility] Platelets 178 150 - 450 K/CU MM [facility] MPV 9.1 (L) 9.4 - 12.4 fL [facility] nRBC 0 0 - 0 /100 WBC [facility] Specimen Blood Performing Organization Address City/State/Zipcode Phone Number [facility] [address] [place] [address] MEDICAL CENTER * Basic metabolic panel (12/14/2017 3:13 AM CDT) Only the most recent of 3 results within the time period is included. Sodium 136 136 - 145 meq/L [facility] Potassium 4.1 3.5 - 5.1 meq/L [facility] Chloride 103 98 - 107 meq/L [facility] CO2 24 22 - 29 meq/L [facility] BUN 18 7 - 21 mg/dL [facility] Creatinine 1.40 (H) 0.57 - 1.25 mg/dL [facility] Glucose 128 (H) 70 - 105 mg/dL [facility] Calcium 8.5 8.4 - 10.2 mg/dL [facility] EGFR 49Comment: ESTIMATED GFR IS mL/min/1.73 sq m [facility] NOT ACCURATE CREATININE [facility] CLEARANCE IN PREDICTING GLOMERULAR FILTRATION RATE. ESTIMATED GFR IS NOT APPLICABLE FOR DIALYSIS PATIENTS. Specimen Blood Performing Organization Address City/[facility]/Zipcode Phone Number [address] [address] [facility] * POC-Glucose meter (12/14/2017 3:01 AM CDT) POC-Glucose Meter 141 (H)Comment: TESTED AT 70 - 110 mg/dL [address] [address] Specimen Blood Performing Organization Address City/[facility]/Zipcode Phone Number [address] [address] [facility] * POC ACTIVATED CLOTTING TIME (12/13/2017 6:10 PM CDT) Only the most recent of 5 results within the time period is included. Activated Clotting Time 125Comment: TESTED AT [facility] sec [address] Specimen Blood Performing Organization Address City/[facility]/Zipcode Phone Number [address] [address] [facility] * Prothrombin time/INR (12/13/2017 8:23 AM CDT) Protime 16.5 (H) 11.7 - 14.7 seconds [facility] INR 1.3 <=5.9 [facility] Specimen Blood Narrative Performed At RECOMMENDED COUMADIN/WARFARIN INR THERAPY RANGES [facility] STANDARD DOSE: 2.0 - 3.0 Includes: PROPHYLAXIS for venous thrombosis, [facility] systemic embolization; TREATMENT for venous thrombosis and/or pulmonary embolus. HIGH RISK: Target INR is 2.5-3.5 for patients with mechanical heart valves. Performing Organization Address City/[facility]/Zipcode Phone Number [facility] [address] [place] [address] [facility] * ECG 12 lead (12/13/2017 8:13 AM CDT) Narrative Performed At Ventricular Rate 78 BPM GE MUSE Atrial Rate 62 BPM QRS Duration 86 ms Q-T Interval 400 ms QTC Calculation(Bazett) 456 ms R [place] -7 degrees T [place] 35 degrees Atrial fibrillation with frequent ventricular-paced complexes Abnormal ECG No previous ECGs available Confirmed by MD FOREMAN JORGE ([id number]) on 12/13/2017 12:13:39 PM Procedure Note Interface, External Ris In - 12/13/2017 12:13 PM CDT Ventricular Rate 78 BPM Atrial Rate 62 BPM QRS Duration 86 ms Q-T Interval 400 ms QTC Calculation(Bazett) 456 ms R [place] -7 degrees T [place] 35 degrees Atrial fibrillation with frequent ventricular-paced complexes Abnormal ECG No previous ECGs available Confirmed by MD FOREMAN JORGE ([id number]) on 12/13/2017 12:13:39 PM Performing Organization Address City/State/Zipcode Phone Number [phone] * CBC with platelet count + automated diff (12/13/2017 7:55 AM CDT) WBC 4.9 3.5 - 10.5 K/L [facility] RBC 4.30 (L) 4.63 - 6.08 M/L [facility] Hemoglobin 11.5 (L) 13.7 - 17.5 GM/DL [facility] Hematocrit 37.7 (L) 40.1 - 51.0 % [facility] MCV 87.7 79.0 - 92.2 fL [facility] MCH 26.7 25.7 - 32.2 pg [facility] MCHC 30.5 (L) 32.3 - 36.5 GM/DL [facility] RDW 14.4 11.6 - 14.4 % [facility] Platelets 171 150 - 450 K/CU MM [facility] MPV 8.8 (L) 9.4 - 12.4 fL [facility] nRBC 0 0 - 0 /100 WBC [facility] % Neutros 75 % [facility] % Lymphs 14 % [facility] % Monos 9 % [facility] % Eos 1 % [facility] % Baso 1 % [facility] # Neutros 3.67 1.78 - 5.38 K/L [facility] # Lymphs 0.70 (L) 1.32 - 3.57 K/L [facility] # Monos 0.43 0.30 - 0.82 K/L [facility] # Eos 0.03 (L) 0.04 - 0.54 K/L [facility] # Baso 0.03 0.01 - 0.08 K/L [facility] Immature 1 0 - 1 % [facility] Specimen Blood Performing Organization Address City/State/Zipcode Phone Number [facility] [address] [place] [address] MEDICAL CENTER * Type and screen, automated (12/13/2017 7:54 AM CDT) ABO/RH AUTOMATED (BEAKER) O POSITIVE [facility] Ab Scrn NEGATIVE [facility] Specimen Blood Performing Organization Address City/State/Zipcode Phone Number [facility] [address] [place], [place] [phone] MEDICAL CENTER * ECHOCARDIOGRAM REPORT - SCAN (12/11/2017 3:21 PM CDT) Narrative Performed At * Transesophageal echo (12/11/2017 8:12 AM CDT) Ejection Fraction [facility]ART[facility] MKCKESSON CPA Narrative Performed At Transesophageal Echocardiography Report (SUZETTE) [facility] Demographics [facility] Patient Name EDGARDO LIPSCOMB Date of Study 12/11/2017 VLAD [id number] GenderMale Visit Number [id number] RaceUnknown [id number] Number OP Number Date of Birth1940 Referring Physician Delmy Aldrich Age77 year(s) Brand Ambassador Monty 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 No LA appendage Thrombus visualized. Iftv-ir-lzqophrb aortic regurgitation. Right ventricular systolic pressure is [...] Aortic ValveAortic valve is normal in appearance. Pgmj-eh-nwzoypfh aortic regurgitation. Mitral ValveMitral valve is normal in appearance. Mild mitral regurgitation. Tricuspid Htgz-as-fjkffvra tricuspid regurgitation. Right ventricular Valve systolic pressure [...] Study 12/11/2017 VLAD Gender Male Visit Number [id number] Race Unknown Room Number OP Number Date of 1940 Referring Physician Delmy Aldirch Age 77 year(s) Brand Ambassador Monty Johnson Interpreting Noam Waite Physician Fellow [...] normal . No LA appendage Thrombus visualized. Sceu-ty-golhdyyk aortic regurgitation. Right ventricular systolic pressure is [...] Valve Aortic valve is normal in appearance. Wdef-lx-nfspyofd aortic regurgitation. Mitral Valve Mitral valve is normal in appearance. Mild mitral regurgitation. Tricuspid Xbac-uq-stvxpppa tricuspid regurgitation. Right ventricular Valve systolic pressure [...] AM CDT) Narrative Performed At Addendum Begins [facility] REPORT STATUS:A Addendum: I agree with the previously described non vascular findings. Signed: Shamar Walters MD Report Verified Date/Time:12/11/2017 14:59:15 Reading Location: [place] [id number] Angio Body Reading Room Addendum Ends FINAL [...] by the interpreting physician using an independent (b-datum) workstation. Please refer to the contrast sheet [...] dictated regarding the non-vascular findings by the Lithographic Proofer Radiologist. Signed: Delvin Sorto MD Report Verified Date/Time:12/11/2017 08:33:56 Reading Location: [place] [id number] Cardiology MRI Procedure Note Interface, External Ris In - 12/11/2017 3:01 PM CDT Addendum Begins REPORT STATUS:A Addendum: I agree with the previously described non vascular findings. Signed: Shamar Walters MD Report Verified Date/Time: 12/11/2017 14:59:15 Reading Location: [facility] [address] Angio Body Reading Room Addendum [...] by the interpreting physician using an independent (b-datum) workstation. Please refer to the contrast sheet [...] dictated regarding the non-vascular findings by the Lithographic Proofer Radiologist. Signed: Delvin Sorto MD Report Verified Date/Time: 12/11/2017 08:33:56 Reading Location: [place] [address] Cardiology MRI Performing Organization Address City/[facility] Phone Number GE RIS * POC-Creatinine (12/11/2017 7:31 AM CDT) POC-Creatinine 1.2Comment: [facility] 0.[facility] - 1.3 mg/dL [address] POC-EGFR 59 mL/min/1.73M2 [facility] Specimen Blood Performing Organization Address City/[facility]/[place] [address] [facility] * PT/aPTT (12/11/2017 6:49 AM CDT) Protime 23.8 (H) 11.7 - 14.7 seconds [facility] INR 2.1 <=5.9 [facility] PTT 56.1 (H) 22.5 - 36.0 seconds [facility] Specimen Blood Narrative Performed At RECOMMENDED COUMADIN/WARFARIN INR THERAPY RANGES [facility] STANDARD DOSE: 2.0 - 3.0 Includes: PROPHYLAXIS for venous thrombosis, [facility] systemic embolization; TREATMENT for venous thrombosis and/or pulmonary embolus. HIGH RISK: Target INR is 2.5-3.5 for patients with mechanical heart valves. Performing Organization Address City/State/Zipcode Phone Number [facility] [address] [place], [place] [phone] [facility] after 05/28/2017 Insurance Payer Benefit Subscriber ID Type Phone Address Plan / Group MEDICARE MEDICARE A xxxxxxxxxx Medicare B BLUE CROSS/BLUE SHIELD BCBS xxxxxxxxxxxx PPO [phone] [address] [place] [address] [place] Advance Directives For more information, please contact: [address] [phone] Date Inactivated Comments Code Status Date Activated [...]
[2018-05-29] MEDS: INSULIN REGULAR, HUMAN 100 UNIT/1 ML 3ML VIAL SQ SCH ×3 (09:04→16:30)
--- NOTE | 2018-05-29 09:05 | NUR ---
Attempt to call report, Charge nurse will call back.
--- NOTE | 2018-05-29 09:29 | NUR ---
Second attempt, charge nurse will "call back" and take report after giving morning meds to pts.
[2018-05-29 10:15] VITALS: BP 95/66
[2018-05-29] MEDS ORDERED: CLOPIDOGREL BISULFATE 75 MG TAB PO SCH (12:30)
--- NOTE | 2018-05-29 15:05 | Consultation ---
DATE OF CONSULTATION: May 29, 2018 OTOLARYNGOLOGY CONSULTATION HISTORY OF PRESENT ILLNESS: I was kindly asked to see this 78-year-old man for evaluation of right-sided epistaxis. He is known to me from his previous hospital consultation seen by me on May 24, 2018. At that time he was found to have bleeding from the right anterior nasal septum which was cauterized with silver nitrate. He did well after the nasal cautery until the evening of his admission when he awoke from sleep with profuse bleeding from the right side of his nose. He was seen in the emergency department where a right-sided Rhino Rocket was placed with adequate control of the nasal bleeding. He was noted to be tachycardic and was admitted for evaluation and treatment. Admission laboratory showed appropriate anticoagulation with an INR of 1.3. Hemoglobin was noted to be 8.6, and platelets were 258,000. Since admission the patient's heart rate has decreased and he has had no further episodes of epistaxis. His past medical history and past surgical history were reviewed in detail on the chart. PHYSICAL EXAMINATION: Pertinent for a Rhino Rocket in the right nostril. The Rhino Rocket was removed. There were blood clots along the floor and the anterior portion of the nasal septum. These were removed, and after application of a 50/50 mixture of Afrin and 2% Pontocaine, a fiberoptic diagnostic rhinoscopy was performed. He was noted to have a mild nasal septal deviation. There were no additional bleeding points identified except at the anterior and inferior aspect of the nasal septum. These areas were then cauterized again with silver nitrate and packed with Surgicel nasal packing. Oral cavity and pharyngeal wall were unremarkable. ASSESSMENT: 1. Recurrent epistaxis. 2. Nasal septal deviation. 3. Coagulopathy. 4. Anemia. PLAN: 1. No additional inpatient therapy. 2. Close followup with consideration of bipolar cautery of the bleeding points. 3. Discussed in detail with Dr. Gross, who believes he is at high risk for withdrawal from his anticoagulation. Thank you very much for this consult. Job#: [id number] EV
[2018-05-29] MEDS ORDERED: APIXAB 2.5 MG TABLET PO SCH (17:00)
[2018-05-29] MEDS ORDERED: MIDODRINE 2.5 MG TAB PO SCH (17:00)
[2018-05-29] MEDS ORDERED: METOPROLOL SUCCINATE 25 MG TAB XL PO SCH (17:00)
[2018-05-29] MEDS ORDERED: SPIRONOLACTONE25 MG PO (18:41)
[2018-05-29] MEDS ORDERED: LASIX20 MG PO (18:41)
--- NOTE | 2018-05-29 20:28 | NUR ---
patient admitted to ICU from ER this morning. no further bleeding noted. afib and hr controlled with po mds. pt discharged this afternoon after being cleared by all MD's. pt to follow up with Dr. Richey office out patient tomorrow. Dr. Curran changed packing to right nare at bedside this afternoon.
--- NOTE | 2018-05-29 20:30 | NUR ---
all discharge instructions and new meds given to spouse and patient. both verbalized understanding of home instructions. pt left with all belongings and escorted to private auto via wheelchair into care of .
[2018-05-29] MEDS ORDERED: FINASTERIDE 5 MG TAB PO SCH (21:00)
--- NOTE | 2018-05-29 22:37 | History and Physical ---
The patient comes in with nosebleed. HISTORY OF PRESENTING ILLNESS: This is Mr. Medellin who recently had a profuse nosebleed, was cauterized on the floor and patient was discharged home, but today, the patient comes in with profuse mild nosebleed. workup was done. The patient did continue to have nosebleed. The patient was admitted to the ICU for continuous also with atrial fibrillation with rapid ventricular response. PAST MEDICAL HISTORY: History of recent non-STEMI, history of hypertension, history of diabetes mellitus, history of enlarged prostate, and history of TURP. SURGICAL HISTORY: History of TURP and appendectomy. MEDICATIONS: Patient is on 1. Clonazepam 0.5 mg. 2. Clopidogrel 75 mg. 3. Finasteride 5 mg. 4. Metoprolol 25 mg ER. 5. Midodrine 2.5 mg tablets. 6. Also omega-3 fatty acid. 7. Eliquis for his atrial fibrillation. ALLERGIES: CODEINE. SOCIAL HISTORY: No ETOH, no IV drug abuse. Lives with at home. FAMILY HISTORY: History of hypertension, diabetes, and coronary artery disease. REVIEW OF SYSTEMS: Negative for chest pain. No shortness of breath. Positive for palpitation. No nausea, vomiting, or diarrhea. No constipation, no rectal bleeding. No hematochezia or hematemesis. Positive for epistaxis. PHYSICAL EXAMINATION GENERAL: Patient is alert and oriented x3. VITAL SIGNS: Temperature of 98.0, pulse of 99, blood pressure is 111/75. HEENT: Normocephalic, atraumatic. Positive for epistaxis and positive for slow trickle of blood. CVS: S1 and S2 irregularly irregular, tachycardic. ABDOMEN: Nontender, nondistended. EXTREMITIES: No clubbing, no cyanosis, and no edema. LABORATORY VALUES: White count was 6.7, hemoglobin of 8.6, and hematocrit of 29.8. Chemistry: Sodium of 137, potassium of 4.9, and chloride of 105. BNP was 2532. ASSESSMENT 1. Epistaxis. 2. Atrial fibrillation with rapid ventricular response. 3. Hypertension. 4. Volume overload. 5. Congestive heart failure. PLAN: To continue the medications he is on. Start him on Lasix and also with Aldactone at this time. Patient's rate control is maintained. Patient has been cauterized by Dr. Curran for his epistaxis. Can discharge the patient home. Follow up with H and H as an outpatient. Further recommendation per clinical course. We will continue to monitor the patient as an outpatient. We will discharge the patient at this time and follow up with serial H and H's as an outpatient. Job#: [id number] CF
--- NOTE | 2018-05-30 01:19 | Consultation ---
DATE OF CONSULTATION: May 30, [address] Dodge. HISTORY: This 78-year-old patient presented to the emergency room after he awakened with nosebleed. The patient was in rapid atrial fibrillation and is now located in the intensive care unit. The patient stated that the episode was similar when he was just recently hospitalized with epistaxis originating from his right nostril and the awakened him at 4 o'clock in the morning. The patient still has packing in his nose, however, Dr. Curran, his ENT physician is ready to remove the packing and cauterize the bleeder. Patient is awake and alert, still showing some mild expressive aphasia, which happened after he had extensive anterior myocardial infarction recently. PAST HISTORY: Reveals that he had TURP and subsequently he had occlusion of the LAD stent with extensive anterior apical infarct, required re-stenting of the LAD, the infarction was complicated by hypoxic encephalopathy and the patient had a very slow recovery in the rehabilitation unit at [facility]. He also had some intermittent hematuria and finally was able to remove the Leos catheter. He also had some systolic congestive heart failure and pulmonary infiltration with respiratory insufficiency and low oxygen saturations. Patient also has diabetes mellitus, chronic kidney disease. He has a permanent pacemaker and is in chronic atrial fibrillation after failed ablation procedures and he has been anemic since his last severe epistaxis. ALLERGIES: CODEINE. SOCIAL HISTORY: Negative. FAMILY HISTORY: Noncontributory. REVIEW OF SYSTEMS: The remainder of systems reviewed, revealed patient denies any headache or sore throat. He denies any chest pain or shortness of breath. Patient denies any abdominal pain, nausea, vomiting, diarrhea. The patient does complain of leg swelling, but denies any leg pain. PHYSICAL EXAMINATION: VITAL SIGNS: Reveals a blood pressure 110/70. NECK: Carotid pulses are present. CHEST: Clear to auscultation. CARDIOVASCULAR SYSTEM: There is a normal apical impulse. The rhythm is irregularly irregular with a rate of 110 per minute. There is no S3. There is no rub. ABDOMEN: Soft. There is no tenderness, no organomegaly. EXTREMITIES: Pulses could not be palpated since he has about 2+ to 3+ pedal edema and also some ankle and pretibial edema is also noted. There are some operations on the area of the left lower extremity, however, there is no drainage or sign of infection. IMPRESSION: 1. Chronic atrial fibrillation with rapid ventricular response and permanent pacemaker. 2. Recurrent epistaxis from the right nostril. 3. Coronary artery disease, status post anterior apical infarction. 4. Chronic kidney disease. 5. Diabetes mellitus. 6. Anemia. 7. Postoperative transurethral resection of prostate. 8. Hypoxic encephalopathy with residual speech impairment. I discussed the situation with Dr. Curran who will see the patient shortly and try to cauterize the bleeder and he agreed to continuous anticoagulation, which is essential at the moment since he has chronic atrial fibrillation with history of an embolic stroke and then also recent infarction with stenting and history of in-stent thrombosis while he was off Plavix. Also recommend to start the patient on furosemide 20 mg daily and spironolactone 12.5 mg daily for leg edema. Thank you very much for letting me see this very nice patient. Job#: [id number]
== END 2018-05-29 18:55 | disposition home or self-care (01) | DRG 151 ==
LOC: ER 01:06 → ERHOLD 03:09 → ICU 09:56
PROVIDERS: ADMIT Family Medicine; ATTEND Family Medicine
DX: R04.0 Epistaxis (principal); D62 Acute posthemorrhagic anemia; I13.0 Hypertensive heart and chronic kidney disease with heart failure and stage 1 through stage 4 chronic kidney disease, or unspecified chronic kidney disease; I48.2 Chronic atrial fibrillation; I50.9 Heart failure, unspecified; E11.9 Type 2 diabetes mellitus without complications; I48.91 Unspecified atrial fibrillation; N40.0 Benign prostatic hyperplasia without lower urinary tract symptoms; E83.51 Hypocalcemia; Z88.5 Allergy status to narcotic agent; Z83.3 Family history of diabetes mellitus; Z82.49 Family history of ischemic heart disease and other diseases of the circulatory system; I25.10 Atherosclerotic heart disease of native coronary artery without angina pectoris; N18.9 Chronic kidney disease, unspecified; D64.9 Anemia, unspecified
CPT/HCPCS: 36415; 71045; 80053; 82550; 82553; 82948; 83880; 84484; 85025; 85610; 85730; 86850; 86900; 93005; 96374; 99284; J1160

== ENCOUNTER → 2018-07-13 | Outpatient (CLI) | payer MEDICARE, BC ==
[~2018-07-13] MED LIST changes: +IOPAMIDOL 370 MG/ML 200 ML INFUS..BTL INJ ONE; +LASIX20 MG PO; +SODIUM CHLORIDE 0.9% 50ML 50 ML ONE; +SPIRONOLACTONE25 MG PO
--- NOTE | 2018-07-15 07:29 | Diagnostic Imaging Report ---
EXAM: CT ABDOMEN/PELVIS WITH CONTRAST INDICATION: Abdominal pain. COMPARISON: CT Abdomen/Pelvis 01/27/2018. TECHNIQUE: The abdomen and pelvis were scanned using a multidetector helical scanner. Coronal and sagittal reformations were obtained. CT low dose techniques were utilized, as applicable. DLP: 849.1 mGy-cm IV Contrast: 100 ml Isovue 370 FINDINGS: LOWER THORAX: Small bilateral pleural effusions. Mild patchy right basilar opacity. Partially seen pacemaker leads. LIVER/BILIARY: Reflux of contrast into the IVC, suggestive of right heart dysfunction. Diffuse fatty liver. No masses. No ductal dilatation. GALLBLADDER: Cholelithiasis without CT evidence of cholecystitis. SPLEEN: Unremarkable PANCREAS: Unremarkable ADRENALS: No nodules KIDNEYS: Subcentimeter too small to characterize bilateral renal hypodensities, but likely cysts. No evidence of hydronephrosis or stone. GI TRACT: No wall thickening or distention. Appendix is not clearly visualized, but there are no secondary signs of appendicitis. There is scattered colonic diverticulosis without CT evidence of diverticulitis. VESSELS: There are scattered atherosclerotic calcifications in the aorta and branch vessels. PERITONEUM/RETROPERITONEUM: Interval development of moderate volume ascites. LYMPH NODES: No lymphadenopathy REPRODUCTIVE ORGANS/BLADDER: Prostatomegaly. The bladder is decompressed and appears circumferentially thick walled. SOFT TISSUES: Small bilateral fat and fluid containing inguinal hernias. BONES: No acute osseous abnormality. No suspicious lytic or blastic lesions. IMPRESSION: Interval development of moderate ascites and fatty liver. Reflux of contrast into the IVC, suggestive of right heart dysfunction. Trace bilateral pleural effusions with patchy atelectasis. Bladder appears decompressed and appears circumferentially thick walled. In the setting of prostatomegaly, this could reflect chronic bladder outlet obstruction and can be clinically correlated. Signed by: Dr. Jose Love MD on 07/15/2018 7:26 AM
== END ==
LOC: CT 14:33
PROVIDERS: ATTEND Internal Medicine Medical Oncology
DX: R10.9 Unspecified abdominal pain (principal); K76.0 Fatty (change of) liver, not elsewhere classified
CPT/HCPCS: 74177; Q9967

== ENCOUNTER 2018-07-17 10:18 | Observation (INO) | payer MEDICARE, BC ==
[~2018-07-17] VITALS: Ht 190.5 cm; Wt 106.6 kg
[~2018-07-17 10:18] MED LIST changes: -IOPAMIDOL 370 MG/ML 200 ML INFUS..BTL INJ ONE; -SODIUM CHLORIDE 0.9% 50ML 50 ML ONE
--- OUTSIDE RECORDS SUMMARY | 2018-07-17 10:21 | XMS REPORT | Clinical Summary ---
Author Author RADHA [facility] Address Unknown Phone Unavailable Care Team Providers Care Inspector Eyeglass Frames Name Role Phone Kyle Dodge MD PCP Allergies Comments Active Allergy Reactions Severity Noted Date HALLUCINATIONS Codeine 02/15/2016 Sore joints Iizzubr-Xth-Yzk Reductase Other (See Low 02/10/2016 Inhibitors Comments) [...] Date A-fib 08/24/2016 CAD (coronary artery disease), [place] coronary artery 02/10/2016 DM (diabetes mellitus) type [...] breath 12/06/2017 Outside Orders Central Scheduling after 07/16/2017 Social History Date Tobacco Use Types Packs/Day [...] ms QTC Calculatio n(Bazett) 456 ms R Alba -7 degrees T Alba 35 degrees Atrial fibrillati on with frequent [...] unspecified type (HCC) Shortness of breath after 07/16/2017 Results * RHYTHM STRIP - SCAN (12/15/2017 [...] CDT) WBC 7.8 3.5 - 10.5 K/L [facility] RBC 4.14 (L) 4.63 - 6.08 M/L [facility] Hemoglobin 11.2 (L) 13.7 - 17.5 GM/DL [facility] Hematocrit 36.7 (L) 40.1 - 51.0 % [facility] MCV 88.6 79.0 - 92.2 fL [facility] MCH 27.1 25.7 - 32.2 pg [facility] MCHC 30.5 (L) 32.3 - 36.5 GM/DL [facility] RDW 14.6 (H) 11.6 - 14.4 % [facility] Platelets 178 150 - 450 K/CU MM [facility] MPV 9.1 (L) 9.4 - 12.4 fL [facility] nRBC 0 0 - 0 /100 WBC [facility] Specimen Blood Performing Organization Address City/State/Zipcode Phone Number [facility] [address] [place] [address] [facility] * Basic metabolic panel (12/14/2017 3:13 AM CDT) Only the most recent of 3 results within the time period is included. Sodium 136 136 - 145 meq/L [facility] Potassium 4.1 3.5 - 5.1 meq/L [facility] Chloride 103 98 - 107 meq/L [facility] CO2 24 22 - 29 meq/L [facility] BUN 18 7 - 21 mg/dL [facility] Creatinine 1.40 (H) 0.57 - 1.25 mg/dL [facility] Glucose 128 (H) 70 - 105 mg/dL [facility] Calcium 8.5 8.4 - 10.2 mg/dL [facility] EGFR 49Comment: ESTIMATED GFR IS mL/min/1.73 sq m [facility] NOT ACCURATE CREATININE [facility] CLEARANCE IN PREDICTING GLOMERULAR FILTRATION RATE. ESTIMATED GFR IS NOT APPLICABLE FOR DIALYSIS PATIENTS. Specimen Blood Performing Organization Address City/[facility]/Zipcode Phone Number [address] [address] [facility] * POC-Glucose meter (12/14/2017 3:01 AM CDT) POC-Glucose Meter 141 (H)Comment: TESTED AT 70 - 110 mg/dL [address] [id number] Specimen Blood Performing Organization Address City/[facility]/Zipcode Phone Number [address] [address] [facility] * POC ACTIVATED CLOTTING TIME (12/13/2017 6:10 PM CDT) Only the most recent of 5 results within the time period is included. Activated Clotting Time 125Comment: TESTED AT [facility] sec [address] Specimen Blood Performing Organization Address City/[facility]/Zipcode Phone Number [address] [address] [facility] * Prothrombin time/INR (12/13/2017 8:23 AM CDT) Protime 16.5 (H) 11.7 - 14.7 seconds [facility] INR 1.3 <=5.9 [facility] Specimen Blood Narrative Performed At RECOMMENDED COUMADIN/WARFARIN INR THERAPY RANGES [facility] STANDARD DOSE: 2.0 - 3.0 Includes: PROPHYLAXIS for venous thrombosis, [facility] systemic embolization; TREATMENT for venous thrombosis and/or pulmonary embolus. HIGH RISK: Target INR is 2.5-3.5 for patients with mechanical heart valves. Performing Organization Address City/[facility]/Zipcode Phone Number [facility] [address] [place] [address] [facility] * ECG 12 lead (12/13/2017 8:13 AM CDT) Narrative Performed At Ventricular Rate 78 BPM GE MUSE Atrial Rate 62 BPM QRS Duration 86 ms Q-T Interval 400 ms QTC Calculation(Bazett) 456 ms R Alba -7 degrees T Alba 35 degrees Atrial fibrillation with frequent ventricular-paced complexes Abnormal ECG No previous ECGs available Confirmed by MD FOREMAN JORGE ([id number]) on 12/13/2017 12:13:39 PM Procedure Note Interface, External Ris In - 12/13/2017 12:13 PM CDT Ventricular Rate 78 BPM Atrial Rate 62 BPM QRS Duration 86 ms Q-T Interval 400 ms QTC Calculation(Bazett) 456 ms R Alba -7 degrees T Alba 35 degrees Atrial fibrillation with frequent ventricular-paced complexes Abnormal ECG No previous ECGs available Confirmed by MD FOREMAN JORGE ([id number]) on 12/13/2017 12:13:39 PM Performing Organization Address City/State/Zipcode Phone Number [phone] * CBC with platelet count + automated diff (12/13/2017 7:55 AM CDT) WBC 4.9 3.5 - 10.5 K/L [facility] RBC 4.30 (L) 4.63 - 6.08 M/L [facility] Hemoglobin 11.5 (L) 13.7 - 17.5 GM/DL [facility] Hematocrit 37.7 (L) 40.1 - 51.0 % [facility] MCV 87.7 79.0 - 92.2 fL [facility] MCH 26.7 25.7 - 32.2 pg [facility] MCHC 30.5 (L) 32.3 - 36.5 GM/DL [facility] RDW 14.4 11.6 - 14.4 % [facility] Platelets 171 150 - 450 K/CU MM [facility] MPV 8.8 (L) 9.4 - 12.4 fL [facility] nRBC 0 0 - 0 /100 WBC [facility] % Neutros 75 % [facility] % Lymphs 14 % [facility] % Monos 9 % [facility] % Eos 1 % [facility] % Baso 1 % [facility] # Neutros 3.67 1.78 - 5.38 K/L [facility] # Lymphs 0.70 (L) 1.32 - 3.57 K/L [facility] # Monos 0.43 0.30 - 0.82 K/L [facility] # Eos 0.03 (L) 0.04 - 0.54 K/L [facility] # Baso 0.03 0.01 - 0.08 K/L [facility] Immature 1 0 - 1 % [facility] Specimen Blood Performing Organization Address City/State/Zipcode Phone Number [facility] [address] [place] [address] [facility] * Type and screen, automated (12/13/2017 7:54 AM CDT) ABO/RH AUTOMATED (BEAKER) O POSITIVE [facility] Ab Scrn NEGATIVE [facility] Specimen Blood Performing Organization Address City/State/Zipcode Phone Number [facility] [address] [place], [place] [phone] [facility] * ECHOCARDIOGRAM REPORT - SCAN (12/11/2017 3:21 PM CDT) Narrative Performed At * Transesophageal echo (12/11/2017 8:12 AM CDT) Ejection Fraction [facility] MKCKESSON CPA Narrative Performed At Transesophageal Echocardiography Report (SUZETTE) [facility]ographics [facility] Name EDGARDO LIPSCOMB Date of Study 12/11/2017 VLAD [id number] GenderMale Visit Number [id number] RaceUnknown [id number] Number OP Number Date of Birth1940 Referring Physician Delmy Aldrich Age77 year(s) 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 No LA appendage Thrombus visualized. Flsq-jn-eaiqlzoa aortic regurgitation. Right ventricular systolic pressure is [...] Aortic ValveAortic valve is normal in appearance. Hhzv-pk-sizczxqr aortic regurgitation. Mitral ValveMitral valve is normal in appearance. Mild mitral regurgitation. Tricuspid Ptga-qd-dohzrhmm tricuspid regurgitation. 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 No LA appendage Thrombus visualized. Ckjz-ae-jajzkdym aortic regurgitation. Right ventricular systolic pressure is [...] Valve Aortic valve is normal in appearance. Qdpp-dg-mkzdetzm aortic regurgitation. Mitral Valve Mitral valve is normal in appearance. Mild mitral regurgitation. Tricuspid Xwis-oc-avxgonrb tricuspid regurgitation. Right ventricular Valve systolic pressure [...] AM CDT) Narrative Performed At Addendum Begins [employer] REPORT STATUS:A Addendum: I agree with the previously described non vascular findings. Signed: Shamar Walters MD Report Verified Date/Time:12/11/2017 14:59:15 Reading Location: [place] [id number] Angio Body Reading Room Addendum Ends FINAL [...] by the interpreting physician using an independent ([employer]) workstation. Please refer to the contrast sheet [...] dictated regarding the non-vascular findings by the Heel Seat Fitter Machine Radiologist. Signed: Delvin Sorto MD Report Verified Date/Time:12/11/2017 08:33:56 Reading Location: [place] [id number] Cardiology MRI Procedure Note Interface, External Ris In - 12/11/2017 3:01 PM CDT Addendum Begins REPORT STATUS:A Addendum: I agree with the previously described non vascular findings. Signed: Shamar Walters MD Report Verified Date/Time: 12/11/2017 14:59:15 Reading Location: [facility] P048 Angio Body Reading Room [...] by the interpreting physician using an independent ([employer]) workstation. Please refer to the contrast sheet [...] dictated regarding the non-vascular findings by the Heel Seat Fitter Machine Radiologist. Signed: Delvin Sorto MD Report Verified Date/Time: 12/11/2017 08:33:56 Reading Location: [place] [address] Cardiology MRI Performing Organization Address City/[facility] Center[facility] Phone Number GE RIS * POC-Creatinine (12/11/2017 7:31 AM CDT) POC-Creatinine 1.2Comment: [facility] 0.[facility] - 1.3 mg/dL [address] POC-EGFR 59 mL/min/1.73M2 [facility] Specimen Blood Performing Organization Address City/[facility]/[place] [address] [facility] * PT/aPTT (12/11/2017 6:49 AM CDT) Protime 23.8 (H) 11.7 - 14.7 seconds [facility] INR 2.1 <=5.9 [facility] PTT 56.1 (H) 22.5 - 36.0 seconds [facility] Specimen Blood Narrative Performed At RECOMMENDED COUMADIN/WARFARIN INR THERAPY RANGES [facility] STANDARD DOSE: 2.0 - 3.0 Includes: PROPHYLAXIS for venous thrombosis, [facility] systemic embolization; TREATMENT for venous thrombosis and/or pulmonary embolus. HIGH RISK: Target INR is 2.5-3.5 for patients with mechanical heart valves. Performing Organization Address City/State/Zipcode Phone Number [facility] [address], [place] [phone] [facility] after 07/16/2017 Insurance Payer Benefit Subscriber ID Type Phone Address Plan / Group MEDICARE MEDICARE A xxxxxxxxxx Medicare B [employer] BCBS xxxxxxxxxxxx PPO [phone] [id number] [place] [address] [place] Advance Directives For more information, please contact: [address] [phone] Date Inactivated Comments Code Status Date Activated [...]
--- OUTSIDE RECORDS SUMMARY | 2018-07-17 10:21 | XMS REPORT | Clinical Summary ---
Author Author [facility] [place] [facility] Address Unknown Phone Unavailable Care Team Providers Care Rigger Third Name Role Phone Kyle Dodge MD PCP Allergies Comments Active Allergy Reactions Severity Noted Date hallucinations Codeine 03/26/2018 Sore joints Crnxvno-She-Pdc Reductase Other (See Low 02/10/2016 Inhibitors Comments) [...] 0 capsule by mouth daily. Active omega 1-xva-bck-fish oil Take 1 0 (FISH OIL) 100-160-1,000 [...] urinary obstruction (Primary Dx); Urinary retention 04/14/2018 [facility] General Internal Medicine - Encounter 04/15/2018 Petros Corado MD 04/14/2018 Orders Only Urology N/A 04/14/2018 Intake Access Eliel Barrera MD Goldfarb, Richard A., MD Urinary retention (Primary Dx); Chronic atrial fibrillation (HCC) 04/11/2018 [facility] General Internal Medicine - Encounter 04/13/2018 Areli Cruz APRN 04/03/2018 Anesthesia Urology Event Rene Riley MD CYSTOSCOPY, WITH TURP 04/03/2018 Surgery Urology Rene Riley MD Enlarged prostate with urinary obstruction 04/03/2018 [facility] General Internal Medicine - Encounter 04/04/2018 Rene Riley MD Preop examination (Primary Dx) 03/27/2018 Pre-Admit Pre-Admission Testing Testing Appointment after 07/16/2017 Social History Date Tobacco Use [...] Taken Vital Sign Reading 04/15/2018 6:28 PM TITLE SPECIALIST Blood Pressure 158/95 04/15/2018 6:28 PM TITLE SPECIALIST Pulse 84 04/15/2018 3:46 PM TITLE SPECIALIST Temperature 36.6 C (97.9 F) 04/15/2018 3:46 PM TITLE SPECIALIST Respiratory Rate 18 04/15/2018 3:46 PM TITLE SPECIALIST Oxygen Saturation 92% - Inhaled Oxygen - Concentration 04/03/2018 7:32 AM TITLE SPECIALIST Weight 96.6 kg (213 lb) 04/11/2018 9:50 AM TITLE SPECIALIST Height 190.5 cm (6' 3") 04/03/2018 7:32 AM TITLE SPECIALIST Body Mass Index 26.62 Plan of Treatment Health Maintenance Due Date Last Done Comments SHINGLES VACCINES (#1) 1992 65+ PNEUMOCOCCAL VACCINE 2007 05/08/2015 (2 of 2 - PPSV23) PNEUMOCOCCAL 2007 POLYSACCHARIDE VACCINE AGE 65 AND OVER INFLUENZA VACCINE 12/06/2017 Procedures Comments Procedure Name Priority Date/Time Associated Diagnosis HEMOGLOBIN & HEMATOCRIT STAT 04/15/2018 5:30 PM TITLE SPECIALIST POC GLUCOSE Routine 04/15/2018 12:40 PM TITLE SPECIALIST POC GLUCOSE Routine 04/15/2018 7:29 AM TITLE SPECIALIST CBC HEMOGRAM Routine 04/15/2018 5:00 AM TITLE SPECIALIST ESTIMATED GFR Routine 04/15/2018 4:00 AM TITLE SPECIALIST BASIC METABOLIC PANEL Routine 04/15/2018 4:00 AM TITLE SPECIALIST POC GLUCOSE Routine 04/14/2018 9:00 PM TITLE SPECIALIST POC GLUCOSE Routine 04/14/2018 4:58 PM TITLE SPECIALIST POC GLUCOSE Routine 04/14/2018 1:07 PM TITLE SPECIALIST PREPARE RBC Timed 04/14/2018 8:55 AM TITLE SPECIALIST TYPE AND SCREEN Routine 04/14/2018 8:55 AM TITLE SPECIALIST POC GLUCOSE Routine 04/14/2018 8:48 AM TITLE SPECIALIST HC COMPLETE BLD COUNT Routine 04/14/2018 W/AUTO DIFF 5:15 AM TITLE SPECIALIST ESTIMATED GFR Routine 04/14/2018 4:59 AM TITLE SPECIALIST BASIC METABOLIC PANEL Routine 04/14/2018 4:59 AM TITLE SPECIALIST POC GLUCOSE Routine 04/13/2018 11:26 AM TITLE SPECIALIST ESTIMATED GFR Routine 04/13/2018 4:00 AM TITLE SPECIALIST BASIC METABOLIC PANEL Routine 04/13/2018 4:00 AM TITLE SPECIALIST HC COMPLETE BLD COUNT Routine 04/13/2018 W/AUTO DIFF 4:00 AM TITLE SPECIALIST HEMOGLOBIN & HEMATOCRIT STAT 04/12/2018 4:45 PM TITLE SPECIALIST HC COMPLETE BLD COUNT Routine 04/12/2018 W/AUTO DIFF 5:00 AM TITLE SPECIALIST ESTIMATED GFR Routine 04/12/2018 4:00 AM TITLE SPECIALIST BASIC METABOLIC PANEL Routine 04/12/2018 4:00 AM TITLE SPECIALIST PREPARE RBC Timed 04/11/2018 12:30 PM TITLE SPECIALIST ESTIMATED GFR STAT 04/11/2018 12:30 PM TITLE SPECIALIST PARTIAL THROMBOPLASTIN STAT 04/11/2018 TIME (PTT) 12:30 PM TITLE SPECIALIST PROTHROMBIN TIME WITH INR STAT 04/11/2018 12:30 PM TITLE SPECIALIST COMPREHENSIVE METABOLIC STAT 04/11/2018 PANEL 12:30 PM TITLE SPECIALIST TYPE AND SCREEN Routine 04/11/2018 12:30 PM TITLE SPECIALIST HC COMPLETE BLD COUNT STAT 04/11/2018 W/AUTO DIFF 12:30 PM TITLE SPECIALIST ECG 12-LEAD STAT 04/11/2018 9:53 AM TITLE SPECIALIST POC GLUCOSE Routine 04/04/2018 11:37 AM TITLE SPECIALIST POC GLUCOSE Routine 04/04/2018 7:27 AM TITLE SPECIALIST POC GLUCOSE Routine 04/03/2018 9:39 PM TITLE SPECIALIST POC GLUCOSE Routine 04/03/2018 6:48 PM TITLE SPECIALIST POC GLUCOSE Routine 04/03/2018 5:06 PM TITLE SPECIALIST POC GLUCOSE Routine 04/03/2018 2:12 PM TITLE SPECIALIST SURGICAL PATHOLOGY Routine 04/03/2018 REQUEST 11:15 AM TITLE SPECIALIST POC GLUCOSE Routine 04/03/2018 10:49 AM TITLE SPECIALIST NE AN ELECTIVE Routine 04/03/2018 SUPRAGLOTTIC AIRWAY 9:19 AM TITLE SPECIALIST Procedure Note - Kristin Kong CRNA - 04/03/2018 9:19 AM TITLE SPECIALIST ANESTHESIA INTUBATION Date/Time: 04/03/2018 9:19 AM Performed [...] TURP 04/03/2018 Enlarged prostate with 9:00 AM TITLE SPECIALIST urinary obstruction Case Notes REQ 0900 START, POSSIBLE EXTENDED RECOVERY Special Needs REQ 0900 START, POSSIBLE EXTENDED RECOVERY POC GLUCOSE Routine 04/03/2018 7:09 AM TITLE SPECIALIST CBC HEMOGRAM Routine 03/27/2018 Preop examination 3:30 PM TITLE SPECIALIST ECG PRE/POST OP Routine 03/27/2018 Preop examination 2:45 PM TITLE SPECIALIST ESTIMATED GFR Routine 03/27/2018 2:37 PM TITLE SPECIALIST BASIC METABOLIC PANEL Routine 03/27/2018 Preop examination 2:37 PM TITLE SPECIALIST HEMOGLOBIN A1C Routine 03/27/2018 Preop examination 2:37 PM TITLE SPECIALIST TYPE AND SCREEN Routine 03/27/2018 Preop examination 2:37 PM TITLE SPECIALIST URINALYSIS SCREEN AND Routine 03/27/2018 Preop examination MICROSCOPY, WITH REFLEX 2:37 PM TITLE SPECIALIST TO CULTURE GRAM STAIN Routine 03/27/2018 2:37 PM TITLE SPECIALIST URINE CULTURE Routine 03/27/2018 2:37 PM TITLE SPECIALIST after 07/16/2017 Results * Hemoglobin & hematocrit (04/15/2018 5:30 PM TITLE SPECIALIST) Only the most recent of 2 results within the time period is included. HGB 10.6 (L) 14.0 - 18.0 g/dL [facility] HCT 33.2 (L) 41.0 - 51.0 % [facility] Specimen Blood Performing Organization Address City/State/Zipcode Phone Number [facility] DEPARTMENT OF [address] [place] [address] PATHOLOGY AND GENOMIC MEDICINE [address] [address] [facility] * POC glucose (04/15/2018 12:40 PM TITLE SPECIALIST) Only the most recent of 15 results within the time period is included. POC glucose 138 (H) 65 - 99 mg/dL [facility] Comment: [facility] Notified RN Meter ID: [id number] Clubhouse Manager: Sheriff Chuy Nieto Performing Organization Address City/[facility] Phone Number [facility] DEPARTMENT OF [address] [place] [address] PATHOLOGY AND GENOMIC MEDICINE [address] * CBC hemogram (04/15/2018 5:00 AM TITLE SPECIALIST) Only the most recent of 2 results within the time period is included. WBC 4.31 (L) 4.50 - 11.00 k/uL [facility] RBC 2.69 (L) 4.40 - 6.00 m/uL [facility] HGB 7.2 (L) 14.0 - 18.0 g/dL [facility] HCT 22.9 (L) 41.0 - 51.0 % [facility] MCV 85.1 82.0 - 100.0 fL [facility] MCH 26.8 (L) 27.0 - 34.0 pg [facility] MCHC 31.4 31.0 - 37.0 g/dL [facility] RDW - SD 46.1 37.0 - 55.0 fL [facility] MPV 9.9 8.8 - 13.2 fL [facility] Platelet count 271 150 - 400 k/uL [facility] Nucleated RBC 0.00 /100 WBC [facility] Specimen Blood Performing Organization Address City/[facility] Phone Number [facility] DEPARTMENT OF [address] [place] [address] PATHOLOGY AND GENOMIC MEDICINE [address] * Estimated GFR (04/15/2018 4:00 AM TITLE SPECIALIST) Only the most recent of 6 results within the time period is included. Estimated GFR 79 mL/min/1.73 m2 [facility] Comment: HOSPITAL CatergoryUnitsInte rpretation G1 >=90 Normal or high G2 60-89Mildly decreased [id number] Mildly to moderately decreased [id number] Moderately to severely decreased G4 15-29Severely decreased G5 <15Kidney failure The eGFR was calculated using the Chronic Kidney Disease Epidemiology Collaboration (CKD-EPI) equation. Interpretation is based on recommendations of the National Kidney Foundation-Kidney Disease Outcomes Quality Initiative (NKF-KDOQI) published in 2014. Specimen Plasma specimen Performing Organization Address City/State/Zipcode Phone Number [facility] DEPARTMENT OF [address] [place] [address] PATHOLOGY AND GENOMIC MEDICINE [address] * Basic metabolic panel (04/15/2018 4:00 AM TITLE SPECIALIST) Only the most recent of 5 results within the time period is included. Sodium 142 135 - 148 mEq/L [facility] Potassium 3.9 3.5 - 5.0 mEq/L [facility] Chloride 105 98 - 112 mEq/L [facility] CO2 25 24 - 31 mEq/L [facility] Anion gap 12@ANIO 7 - 15 mEq/L [facility] BUN 12 8 - 23 mg/dL [facility] Creatinine 0.93 0.70 - 1.20 mg/dL [facility] Glucose 102 (H) 65 - 99 mg/dL [facility] Calcium 8.5 (L) 8.8 - 10.2 mg/dL [facility] Specimen Plasma specimen Performing Organization Address City/[facility]/Zipcode Phone Number [facility] DEPARTMENT OF [address] [place] [address] PATHOLOGY AND GENOMIC MEDICINE [address] * Prepare RBC, 2 Units (04/14/2018 8:55 AM TITLE SPECIALIST) Only the most recent of 2 results within the time period is included. Product name Red Blood Cells -1, Leukored [facility] Unit number [id number] [facility] Product code [id number] [facility] Dispense status Transfused [facility] Blood expiration date [facility] Blood type code 5100 [facility] Blood type O POSITIVE [facility] Product name Red Blood Cells -1, Leukored [facility] Unit number [id number] [facility] Product code [id number] [facility] Dispense status Transfused [facility] Blood expiration date [facility] Blood type code 5100 [facility] Blood type O POSITIVE [facility] Performing Organization Address City/[facility]/Zipcode Phone Number [facility] DEPARTMENT OF [address] [place] [address] PATHOLOGY AND GENOMIC MEDICINE [address] * Type and screen (04/14/2018 8:55 AM TITLE SPECIALIST) Only the most recent of 3 results within the time period is included. ABO grouping O [facility] Rh type POS [facility] Antibody screen (gel) NEG [facility] Specimen Blood Performing Organization Address City/[facility] Phone Number [facility] DEPARTMENT OF [address] [place] [address] PATHOLOGY AND GENOMIC MEDICINE [address] * CBC with platelet and differential (04/14/2018 5:15 AM TITLE SPECIALIST) Only the most recent of 4 results within the time period is included. WBC 5.45 4.50 - 11.00 k/uL [facility] RBC 2.69 (L) 4.40 - 6.00 m/uL [facility] HGB 7.3 (L) 14.0 - 18.0 g/dL [facility] HCT 23.2 (L) 41.0 - 51.0 % [facility] MCV 86.2 82.0 - 100.0 fL [facility] MCH 27.1 27.0 - 34.0 pg [facility] MCHC 31.5 31.0 - 37.0 g/dL [facility] RDW - SD 47.5 37.0 - 55.0 fL [facility] MPV 9.4 8.8 - 13.2 fL [facility] Platelet count 213 150 - 400 k/uL [facility] Nucleated RBC 0.00 /100 WBC [facility] Neutrophils 75.2 (H) 39.0 - 69.0 % [facility] Lymphocytes 14.9 (L) 25.0 - 45.0 % [facility] Monocytes 8.3 0.0 - 10.0 % [facility] Eosinophils 0.4 0.0 - 5.0 % [facility] Basophils 0.6 0.0 - 1.0 % [facility] Immature granulocytes 0.6Comment: "Immature 0.0 - 1.0 % [facility] granulocytes" (promyelocytes, HOSPITAL myelocytes, metamyelocytes) Specimen Blood Performing Organization Address City/State/Zipcode Phone Number [facility] DEPARTMENT OF [address] [place] [address] PATHOLOGY AND GENOMIC MEDICINE [address] * Partial thromboplastin time, activated (04/11/2018 12:30 PM TITLE SPECIALIST) PTT 39.4 (H) 23.0 - 36.0 sec [facility] Comment: HOSPITAL PTT therapeutic range for unfractionated heparin is 61.0-112.0 seconds which corresponds to Anti-Xa 0.3-0.7 U/ml. Specimen Blood Performing Organization Address City/[facility]/Zipcode Phone Number [facility] DEPARTMENT OF [address] [place] [address] PATHOLOGY AND GENOMIC MEDICINE [address] * Prothrombin time with INR (04/11/2018 12:30 PM TITLE SPECIALIST) Prothrombin time 19.8 (H) 11.5 - 14.5 sec [facility] INR 1.7 [facility] Comment: HOSPITAL The International Normalized Ratio (INR) is a therapeutic monitoring tool for patients who are stable on oral anticoagulant therapy. An INR of 2.0-3.0 is suggested for deep vein thrombosis/pulmonary embolism. Specimen Blood Performing Organization Address City/[facility] Phone Number [facility] [place] [address] PATHOLOGY AND GENOMIC MEDICINE [address] * Comprehensive metabolic panel (04/11/2018 12:30 PM TITLE SPECIALIST) Sodium 141 135 - 148 mEq/L [facility] Potassium 4.4 3.5 - 5.0 mEq/L [facility] Chloride 102 98 - 112 mEq/L [facility] CO2 25 24 - 31 mEq/L [facility] Anion gap 14@ANIO 7 - 15 mEq/L [facility] BUN 12 8 - 23 mg/dL [facility] Creatinine 1.02 0.70 - 1.20 mg/dL [facility] Glucose 123 (H) 65 - 99 mg/dL [facility] Calcium 8.7 (L) 8.8 - 10.2 mg/dL [facility] Protein 5.9 (L) 6.3 - 8.3 g/dL [facility] Comment: HOSPITAL [place] 4.6-7.0 g/dL 1 week 4.4-7.6 g/dL 7 months-1year 5.1-7.3 g/dL 1-2 years5.6-7 .5 g/dL >3 years6.0-8 .0 g/dL 18-150 6.3-8.3 g/dL Albumin 3.4 (L) 3.5 - 5.0 g/dL [facility] A/G ratio 1.4 0.7 - 3.8 [facility] Alkaline phosphatase 80 40 - 129 U/L [facility] AST 32 10 - 50 U/L [facility] ALT 52 (H) 5 - 50 U/L [facility] Total bilirubin 0.8 0.0 - 1.2 mg/dL [facility] Specimen Plasma specimen Performing Organization Address City/[facility] [place] [address] PATHOLOGY AND GENOMIC MEDICINE [address] * ECG 12 lead (04/11/2018 9:53 AM TITLE SPECIALIST) Ventricular rate 144 [facility] MUSE Atrial rate 141 [facility] QRSD interval 76 [facility] QT interval 264 [facility] QTC interval 408 [facility] QRS axis 1 -19 [facility] M[facility] T wave axis 89 [facility] EKG impression Atrial fibrillation with rapid [facility] M[facility] ventricular response-Nonspecific ST and T wave abnormality-Abnormal ECG-In automated comparison with ECG of 27-MAR-2018 14:45,-Vent. rate has increased BY50 BPM- Narrative Performed At Performing Organization Address City/State/[facility] [place] [address] * Surgical pathology request (04/03/2018 11:15 AM TITLE SPECIALIST) [facility] DEPARTMENT OF PATHOLOGY AND GENOMIC MEDICINE Surgical pathology report See link below for PDF Lab [facility] DEPARTMENT OF Report PATHOLOGY AND GENOMIC MEDICINE Result status This is Final Report for [facility] DEPARTMENT OF [id number] PATHOLOGY AND GENOMIC MEDICINE Performing Organization Address City/[facility]/Zipcode Phone Number [facility] DEPARTMENT [address] [address] PATHOLOGY AND GENOMIC MEDICINE * ECG Pre/Post Op (03/27/2018 2:45 PM TITLE SPECIALIST) Ventricular rate 94 [facility] Atrial rate 159 [facility] QRSD interval 88 [facility] QT interval 342 [facility] QTC interval 427 [facility] QRS axis 1 3 [facility] T wave axis 77 [facility] EKG impression Atrial [facility] MUSE fibrillation-Nonspecific ST and T wave abnormality , probably digitalis effect-Abnormal ECG-No previous ECGs available- Narrative Performed At Performing Organization Address [facility] Phone Number [facility] MUSE [address] [place] [phone] * Urinalysis screen and microscopy, with reflex to culture (03/27/2018 2:37 PM TITLE SPECIALIST) Specimen site Clean catch [facility] Color, UA Red [facility] Appearance, UA Cloudy [facility] Specific gravity, UA 1.017 1.001 - 1.035 [facility] pH, UA 5.0 5.0 - 8.5 [facility] Protein, UA 2+ (A) Negative [facility] Glucose, UA Negative Negative [facility] Ketones, UA Negative Negative [facility] Bilirubin, UA Negative Negative [facility] Blood, UA Large (A) Negative [facility] Nitrite, UA Negative Negative [facility] Urobilinogen, UA <2.0 <2.0 [facility] Leukocyte esterase, UA Moderate (A) Negative [facility] WBC, UA 96 (H) 0 - 1 /HPF [facility] RBC, UA >180 (H) 0 - 5 /HPF [facility] Bacteria, UA Few None seen [facility] Yeast, UA None seen [facility] Yeast with pseudohyphae, None seen [facility] Hyaline casts, UA 12 /LPF [facility] Specimen Urine Performing Organization Address City/[facility]/Zipcode Phone Number [facility] DEPARTMENT OF [address] [place] [phone] PATHOLOGY AND GENOMIC MEDICINE [address] * Gram stain (03/27/2018 2:37 PM TITLE SPECIALIST) Gram stain result Many Gram positive rods [facility] Many Gram positive cocci in HOSPITAL pairs Few WBC's Comment: Specimen Information Specimen Source: Urine Specimen Site: Clean catch Specimen Urine Performing Organization Address [facility] Phone Number [facility] DEPARTMENT OF [address] [place] [address] PATHOLOGY AND GENOMIC MEDICINE [address] * Urine culture (03/27/2018 2:37 PM TITLE SPECIALIST) Urine culture isolate Enterococcus faecalis [facility] >10-5 cfu/ml [facility] The performance characteristics of this assay on this isolate were validated by the Microbiology Laboratory at [facility].This source has not been approved by [...] mcg/mL: Susceptible Enterococcus faecalis Performing Organization Address [facility] Phone Number [facility] DEPARTMENT OF [address] [place] [address] PATHOLOGY AND GENOMIC MEDICINE [address] * Hemoglobin A1c (03/27/2018 2:37 PM TITLE SPECIALIST) Hemoglobin A1C 6.3 (H) 4.0 - 5.6 [...] Blood Performing Organization Address City/State/Zipcode Phone Number [facility] DEPARTMENT OF [address] [place] [address] PATHOLOGY AND GENOMIC MEDICINE [facility] [address] [place] [address] HOSPITAL after 07/16/2017 Insurance Payer Benefit Subscriber ID Type Phone Address Plan / Group MEDICARE MEDICARE xxxxxxxxxxx Medicare [place] PART A AND B BCBS BCBS xxxxxxxxxxxx Indemnity PAR/TRAD PLAN Advance Directives Patient has advance care planning documents on file. For more information, bryce smith contact: [facility] [address] [place] [phone]
[2018-07-17 11:54] LABS: BASOPHILS % 0.6 % (0.0-1.0); EOSINOPHILS % 0.4 % (0.0-6.0); HEMATOCRIT 36.4 % (38.2-49.6); HEMOGLOBIN 10.6 g/dL (14.0-18.0); LYMPHOCYTES # (AUTO) 0.6 (1.0-3.2); LYMPHOCYTES % 10.7 % (18.0-39.1); MEAN CORPUSCULAR HEMOGLOBIN 24.5 pg (28-32); MEAN CORPUSCULAR HGB CONC 29.1 g/dL (31-35); MEAN CORPUSCULAR VOLUME 84.1 fL (81-99); MONOCYTES # (AUTO) 0.4 (0.2-0.8); MONOCYTES % 8.2 % (4.4-11.3); NEUTROPHILS # (AUTO) 4.1 (2.1-6.9); NEUTROPHILS % 79.5 % (38.7-80.0); PLATELET COUNT 216 x10e3/uL (140-360); RED BLOOD COUNT 4.33 x10e6/uL (4.3-5.7); RED CELL DISTRIBUTION WIDTH 22.6 % (11.7-14.4)
[2018-07-17 12:00] LABS: BILIRUBIN,URINE NEGATIVE (NEGATIVE); CLARITY,URINE HAZY (CLEAR); COLOR,URINE YELLOW (YELLOW); KETONES,URINE NEGATIVE (NEGATIVE); LEUKOCYTE ESTERASE ,URINE NEGATIVE (NEGATIVE); NITRITE,URINE NEGATIVE (NEGATIVE); PROTEIN,URINE DIPSTICK NEGATIVE (NEGATIVE); URINE UROBILINOGEN 0.2 mg/dL (0.2 - 1)
[2018-07-17 12:00] LABS: INR 1.59; PROTHROMBIN TIME 19.6 seconds (11.9-14.5)
[2018-07-17 12:01] LABS: PARTIAL THROMBOPLASTIN TIME 40.7 seconds (23.8-35.5)
[2018-07-17 12:05] LABS: EPITHELIAL CELLS,URINE FEW /LPF; RBC,URINE 0-5 /HPF (0-5)
[2018-07-17 12:10] LABS: ALANINE AMINOTRANSFERASE 9 IU/L (0-55); ALBUMIN 3.6 g/dL (3.5-5.0); ALBUMIN/GLOBULIN RATIO 1.5 (0.8-2.0); ALKALINE PHOSPHATASE 59 IU/L (40-150); ANION GAP 10.7 mmol/L (8-16); BLOOD UREA NITROGEN 17 mg/dL (7-26); BUN/CREATININE RATIO 17 (6-25); CALCIUM 8.4 mg/dL (8.4-10.2); CARBON DIOXIDE 30 mmol/L (22-29); CHLORIDE 102 mmol/L (98-107); CREATINE KINASE 61 IU/L (30-200); CREATININE, SERUM 0.98 mg/dL (0.72-1.25); EST GLOMERULAR FILTRATION RATE > 60 ML/MIN (60-); GLUCOSE 92 mg/dL (74-118); POTASSIUM 3.7 mmol/L (3.5-5.1); SODIUM 139 mmol/L (136-145)
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
[2018-07-17] MEDS ORDERED: DEXTROSE 50% SYRINGE 50 ML IV PRN (17:00)
[2018-07-17] MEDS ORDERED: ONDANSETRON HCL INJ 2MG/ML 2ML 2 MG/ML VIAL IV PRN (17:00)
[2018-07-17] MEDS ORDERED: SODIUM CHLORIDE FLUSH 10 ML SYR INJ PRN (17:00)
[2018-07-17] MEDS ORDERED: HYDROMORPHONE 1MG/1ML INJ IV PRN (17:00)
--- OUTSIDE RECORDS SUMMARY | 2018-07-17 17:21 | XMS REPORT | Clinical Summary ---
Author Author [facility] Organization [facility] Address Unknown Phone Unavailable Care Team Providers Care Driver/Refuse Collector Name Role Phone Kyle Dodge MD PCP Allergies Comments Active Allergy Reactions Severity Noted Date hallucinations Codeine 03/26/2018 Sore joints Byurrug-Kvz-Oer Reductase Other (See Low 02/10/2016 Inhibitors Comments) [...] 0 capsule by mouth daily. Active omega 7-qlf-qld-fish oil Take 1 0 (FISH OIL) 100-160-1,000 [...] urinary obstruction (Primary Dx); Urinary retention 04/14/2018 [facility] General Internal Medicine - Encounter 04/15/2018 Petros Corado MD 04/14/2018 Orders Only Urology N/A 04/14/2018 Intake Access Eliel Barrera MD Goldfarb, Richard A., MD Urinary retention (Primary Dx); Chronic atrial fibrillation (HCC) 04/11/2018 [facility] General Internal Medicine - Encounter 04/13/2018 Areli Cruz APRN 04/03/2018 Anesthesia Urology Event Rene Riley MD CYSTOSCOPY, WITH TURP 04/03/2018 Surgery Urology Rene Riley MD Enlarged prostate with urinary obstruction 04/03/2018 [facility] General Internal Medicine - Encounter [...] Taken Vital Sign Reading 04/15/2018 6:28 PM CARD SETTER Blood Pressure 158/95 04/15/2018 6:28 PM CARD SETTER Pulse 84 04/15/2018 3:46 PM CARD SETTER Temperature 36.6 C (97.9 F) 04/15/2018 3:46 PM CARD SETTER Respiratory Rate 18 04/15/2018 3:46 PM CARD SETTER Oxygen Saturation 92% - Inhaled Oxygen - Concentration 04/03/2018 7:32 AM CARD SETTER Weight 96.6 kg (213 lb) 04/11/2018 9:50 AM CARD SETTER Height 190.5 cm (6' 3") 04/03/2018 7:32 AM CARD SETTER Body Mass Index 26.62 Plan of Treatment Health Maintenance Due Date Last Done Comments SHINGLES VACCINES (#1) 1992 65+ PNEUMOCOCCAL VACCINE 2007 05/08/2015 (2 of 2 - PPSV23) PNEUMOCOCCAL 2007 POLYSACCHARIDE VACCINE AGE 65 AND OVER INFLUENZA VACCINE 12/06/2017 Procedures Comments Procedure Name Priority Date/Time Associated Diagnosis HEMOGLOBIN & HEMATOCRIT STAT 04/15/2018 5:30 PM CARD SETTER POC GLUCOSE Routine 04/15/2018 12:40 PM CARD SETTER POC GLUCOSE Routine 04/15/2018 7:29 AM CARD SETTER CBC HEMOGRAM Routine 04/15/2018 5:00 AM CARD SETTER ESTIMATED GFR Routine 04/15/2018 4:00 AM CARD SETTER BASIC METABOLIC PANEL Routine 04/15/2018 4:00 AM CARD SETTER POC GLUCOSE Routine 04/14/2018 9:00 PM CARD SETTER POC GLUCOSE Routine 04/14/2018 4:58 PM CARD SETTER POC GLUCOSE Routine 04/14/2018 1:07 PM CARD SETTER PREPARE RBC Timed 04/14/2018 8:55 AM CARD SETTER TYPE AND SCREEN Routine 04/14/2018 8:55 AM CARD SETTER POC GLUCOSE Routine 04/14/2018 8:48 AM CARD SETTER HC COMPLETE BLD COUNT Routine 04/14/2018 W/AUTO DIFF 5:15 AM CARD SETTER ESTIMATED GFR Routine 04/14/2018 4:59 AM CARD SETTER BASIC METABOLIC PANEL Routine 04/14/2018 4:59 AM CARD SETTER POC GLUCOSE Routine 04/13/2018 11:26 AM CARD SETTER ESTIMATED GFR Routine 04/13/2018 4:00 AM CARD SETTER BASIC METABOLIC PANEL Routine 04/13/2018 4:00 AM CARD SETTER HC COMPLETE BLD COUNT Routine 04/13/2018 W/AUTO DIFF 4:00 AM CARD SETTER HEMOGLOBIN & HEMATOCRIT STAT 04/12/2018 4:45 PM CARD SETTER HC COMPLETE BLD COUNT Routine 04/12/2018 W/AUTO DIFF 5:00 AM CARD SETTER ESTIMATED GFR Routine 04/12/2018 4:00 AM CARD SETTER BASIC METABOLIC PANEL Routine 04/12/2018 4:00 AM CARD SETTER PREPARE RBC Timed 04/11/2018 12:30 PM CARD SETTER ESTIMATED GFR STAT 04/11/2018 12:30 PM CARD SETTER PARTIAL THROMBOPLASTIN STAT 04/11/2018 TIME (PTT) 12:30 PM CARD SETTER PROTHROMBIN TIME WITH INR STAT 04/11/2018 12:30 PM CARD SETTER COMPREHENSIVE METABOLIC STAT 04/11/2018 PANEL 12:30 PM CARD SETTER TYPE AND SCREEN Routine 04/11/2018 12:30 PM CARD SETTER HC COMPLETE BLD COUNT STAT 04/11/2018 W/AUTO DIFF 12:30 PM CARD SETTER ECG 12-LEAD STAT 04/11/2018 9:53 AM CARD SETTER POC GLUCOSE Routine 04/04/2018 11:37 AM CARD SETTER POC GLUCOSE Routine 04/04/2018 7:27 AM CARD SETTER POC GLUCOSE Routine 04/03/2018 9:39 PM CARD SETTER POC GLUCOSE Routine 04/03/2018 6:48 PM CARD SETTER POC GLUCOSE Routine 04/03/2018 5:06 PM CARD SETTER POC GLUCOSE Routine 04/03/2018 2:12 PM CARD SETTER SURGICAL PATHOLOGY Routine 04/03/2018 REQUEST 11:15 AM CARD SETTER POC GLUCOSE Routine 04/03/2018 10:49 AM CARD SETTER ID AN ELECTIVE Routine 04/03/2018 SUPRAGLOTTIC AIRWAY 9:19 AM CARD SETTER Procedure Note - Kristin Kong CRNA - 04/03/2018 9:19 AM CARD SETTER ANESTHESIA INTUBATION Date/Time: 04/03/2018 9:19 AM Performed [...] TURP 04/03/2018 Enlarged prostate with 9:00 AM CARD SETTER urinary obstruction Case Notes REQ 0900 START, POSSIBLE EXTENDED RECOVERY Special Needs REQ 0900 START, POSSIBLE EXTENDED RECOVERY POC GLUCOSE Routine 04/03/2018 7:09 AM CARD SETTER CBC HEMOGRAM Routine 03/27/2018 Preop examination 3:30 PM CARD SETTER ECG PRE/POST OP Routine 03/27/2018 Preop examination 2:45 PM CARD SETTER ESTIMATED GFR Routine 03/27/2018 2:37 PM CARD SETTER BASIC METABOLIC PANEL Routine 03/27/2018 Preop examination 2:37 PM CARD SETTER HEMOGLOBIN A1C Routine 03/27/2018 Preop examination 2:37 PM CARD SETTER TYPE AND SCREEN Routine 03/27/2018 Preop examination 2:37 PM CARD SETTER URINALYSIS SCREEN AND Routine 03/27/2018 Preop examination MICROSCOPY, WITH REFLEX 2:37 PM CARD SETTER TO CULTURE GRAM STAIN Routine 03/27/2018 2:37 PM CARD SETTER URINE CULTURE Routine 03/27/2018 2:37 PM CARD SETTER after 07/16/2017 Results * Hemoglobin & hematocrit (04/15/2018 5:30 PM CARD SETTER) Only the most recent of 2 results within the time period is included. HGB 10.6 (L) 14.0 - 18.0 g/dL [facility] HCT 33.2 (L) 41.0 - 51.0 % [facility] Specimen Blood Performing Organization Address City/State/Zipcode Phone Number [place] [facility] [address] [place] [address] PATHOLOGY AND GENOMIC MEDICINE [address] [address] [facility] * POC glucose (04/15/2018 12:40 PM CARD SETTER) Only the most recent of 15 results within the time period is included. POC glucose 138 (H) 65 - 99 mg/dL [facility] [place] Comment: [facility] Notified RN Meter ID: [id number] Microfilm Equipment Inspector: Sheriff Chuy iNet[employer] Performing Organization Address City/[facility] Phone Number [place] [address] [place] [address] PATHOLOGY AND GENOMIC MEDICINE [address] * CBC hemogram (04/15/2018 5:00 AM CARD SETTER) Only the most recent of 2 results within the time period is included. WBC 4.31 (L) 4.50 - 11.00 k/uL [facility] RBC 2.69 (L) 4.40 - 6.00 m/uL [facility] HGB 7.2 (L) 14.0 - 18.0 g/dL [facility] HCT 22.9 (L) 41.0 - 51.0 % [facility] MCV 85.1 82.0 - 100.0 fL [facility] MCH 26.8 (L) 27.0 - 34.0 pg [facility] MCHC 31.4 31.0 - 37.0 g/dL [facility] RDW - SD 46.1 37.0 - 55.0 fL [facility] MPV 9.9 8.8 - 13.2 fL [facility] Platelet count 271 150 - 400 k/uL [facility] Nucleated RBC 0.00 /100 WBC [facility] Specimen Blood Performing Organization Address City/[facility] Centercode Phone Number [facility] [address] [place] [address] PATHOLOGY AND GENOMIC MEDICINE [address] * Estimated GFR (04/15/2018 4:00 AM CARD SETTER) Only the most recent of 6 results within the time period is included. Estimated GFR 79 mL/min/1.[address] [facility] [place] Comment: HOSPITAL CatergoryUnitsInte rpretation G1 >=90 Normal or high G2 60-89Mildly decreased [id number] Mildly to moderately decreased G2z92-82 Moderately to severely decreased G4 15-29Severely decreased G5 <15Kidney failure The eGFR was calculated using the Chronic Kidney Disease Epidemiology Collaboration (CKD-EPI) equation. Interpretation is based on recommendations of the National Kidney Foundation-Kidney Disease Outcomes Quality Initiative (NKF-KDOQI) published in 2014. Specimen Plasma specimen Performing Organization Address City/State/Zipcode Phone Number [facility] [address] [place] [address] PATHOLOGY AND GENOMIC MEDICINE [address] * Basic metabolic panel (04/15/2018 4:00 AM CARD SETTER) Only the most recent of 5 results within the time period is included. Sodium 142 135 - 148 mEq/L [facility] Potassium 3.9 3.5 - 5.0 mEq/L [facility] Chloride 105 98 - 112 mEq/L [facility] CO2 25 24 - 31 mEq/L [facility] Anion gap 12@ANIO 7 - 15 mEq/L [facility] BUN 12 8 - 23 mg/dL [facility] Creatinine 0.93 0.70 - 1.20 mg/dL [facility] Glucose 102 (H) 65 - 99 mg/dL [facility] Calcium 8.5 (L) 8.8 - 10.2 mg/dL [facility] Specimen Plasma specimen Performing Organization Address City/[facility]/Zipcode Phone Number [facility] [address] [place] [address] PATHOLOGY AND GENOMIC MEDICINE [address] * Prepare RBC, 2 Units (04/14/2018 8:55 AM CARD SETTER) Only the most recent of 2 results within the time period is included. Product name Red Blood Cells -1, Leukored [facility] Unit number [id number] [facility] Product code [id number] [facility] Dispense status Transfused [facility] Blood expiration date [facility] Blood type code 5100 [facility] Blood type O POSITIVE [facility] Product name Red Blood Cells -1, Leukored [facility] Unit number [id number] [facility] Product code [id number] [facility] Dispense status Transfused [facility] Blood expiration date [facility] Blood type code 5100 [facility] Blood type O POSITIVE [facility] Performing Organization Address City/[facility]/Zipcode Phone Number [facility] [address] [place] [address] PATHOLOGY AND GENOMIC MEDICINE [address] * Type and screen (04/14/2018 8:55 AM CARD SETTER) Only the most recent of 3 results within the time period is included. ABO grouping O [facility] Rh type POS [facility] Antibody screen (gel) NEG [facility] Specimen Blood Performing Organization Address City/[facility] Centercode Phone Number [facility] [address] [place] [address] PATHOLOGY AND GENOMIC MEDICINE [address] * CBC with platelet and differential (04/14/2018 5:15 AM CARD SETTER) Only the most recent of 4 results within the time period is included. WBC 5.45 4.50 - 11.00 k/uL [facility] RBC 2.69 (L) 4.40 - 6.00 m/uL [facility] HGB 7.3 (L) 14.0 - 18.0 g/dL [facility] HCT 23.2 (L) 41.0 - 51.0 % [facility] MCV 86.2 82.0 - 100.0 fL [facility] MCH 27.1 27.0 - 34.0 pg [facility] MCHC 31.5 31.0 - 37.0 g/dL [facility] RDW - SD 47.5 37.0 - 55.0 fL [facility] MPV 9.4 8.8 - 13.2 fL [facility] Platelet count 213 150 - 400 k/uL [facility] Nucleated RBC 0.00 /100 WBC [facility] Neutrophils 75.2 (H) 39.0 - 69.0 % [facility] Lymphocytes 14.9 (L) 25.0 - 45.0 % [facility] Monocytes 8.3 0.0 - 10.0 % [facility] Eosinophils 0.4 0.0 - 5.0 % [facility] Basophils 0.6 0.0 - 1.0 % [facility] Immature granulocytes 0.6Comment: "Immature 0.0 - 1.0 % [facility] [place] granulocytes" (promyelocytes, HOSPITAL myelocytes, metamyelocytes) Specimen Blood Performing Organization Address City/State/Zipcode Phone Number [facility] [address] [place] [address] PATHOLOGY AND GENOMIC MEDICINE [address] * Partial thromboplastin time, activated (04/11/2018 12:30 PM CARD SETTER) PTT 39.4 (H) 23.0 - 36.[address] [facility] [place] Comment: HOSPITAL PTT therapeutic range for unfractionated heparin is 61.0-112.0 seconds which corresponds to Anti-Xa 0.3-0.7 U/ml. Specimen Blood Performing Organization Address City/[facility]/Zipcode Phone Number [facility] [address] [place] [address] PATHOLOGY AND GENOMIC MEDICINE [address] * Prothrombin time with INR (04/11/2018 12:30 PM CARD SETTER) Prothrombin time 19.8 (H) 11.5 - 14.5 sec [facility] INR 1.[address] [facility] [place] Comment: HOSPITAL The International Normalized Ratio (INR) is a therapeutic monitoring tool for patients who are stable on oral anticoagulant therapy. An INR of 2.0-3.0 is suggested for deep vein thrombosis/pulmonary embolism. Specimen Blood Performing Organization Address City/[facility] Centercode Phone Number [facility] [address] PATHOLOGY AND GENOMIC MEDICINE [address] * Comprehensive metabolic panel (04/11/2018 12:30 PM CARD SETTER) Sodium 141 135 - 148 mEq/L [facility] Potassium 4.4 3.5 - 5.0 mEq/L [facility] Chloride 102 98 - 112 mEq/L [facility] CO2 25 24 - 31 mEq/L [facility] Anion gap 14@ANIO 7 - 15 mEq/L [facility] BUN 12 8 - 23 mg/dL [facility] Creatinine 1.02 0.70 - 1.20 mg/dL [facility] Glucose 123 (H) 65 - 99 mg/dL [facility] Calcium 8.7 (L) 8.8 - 10.2 mg/dL [facility] Protein 5.9 (L) 6.3 - 8.3 g/dL [facility] [place] Comment: HOSPITAL [place] 4.6-7.0 g/dL 1 week 4.4-7.6 g/dL 7 months-1year 5.1-7.3 g/dL 1-2 years5.6-7 .5 g/dL >3 years6.0-8 .0 g/dL 18-150 6.3-8.3 g/dL Albumin 3.4 (L) 3.5 - 5.0 g/dL [facility] A/G ratio 1.4 0.7 - 3.8 [facility] Alkaline phosphatase 80 40 - 129 U/L [facility] AST 32 10 - 50 U/L [facility] ALT 52 (H) 5 - 50 U/L [facility] Total bilirubin 0.8 0.0 - 1.2 mg/dL [facility] Specimen Plasma specimen Performing Organization Address City/[facility] Centercode [place] [address] PATHOLOGY AND GENOMIC MEDICINE [address] * ECG 12 lead (04/11/2018 9:53 AM CARD SETTER) Ventricular rate 144 [facility] Atrial rate 141 [facility] QRSD interval 76 [facility] QT interval 264 [facility] QTC interval 408 [facility] QRS axis 1 -19 [facility] T wave axis 89 [facility] EKG impression Atrial fibrillation with rapid [facility] ventricular response-Nonspecific ST and T wave abnormality-Abnormal ECG-In automated comparison with ECG of 27-MAR-2018 14:45,-Vent. rate has increased BY50 BPM- Narrative Performed At Performing Organization Address City/State/[facility] [place] [address] * Surgical pathology request (04/03/2018 11:15 AM CARD SETTER) [facility] Surgical pathology report See link below for PDF Lab [facility] Report PATHOLOGY AND GENOMIC MEDICINE Result status This is Final Report for [facility] [id number] PATHOLOGY AND GENOMIC MEDICINE Performing Organization Address City/[facility]/Zipcode Phone Number [facility] [address] [address] PATHOLOGY AND GENOMIC MEDICINE * ECG Pre/Post Op (03/27/2018 2:45 PM CARD SETTER) Ventricular rate 94 [facility] Atrial rate 159 [facility] QRSD interval 88 [facility] QT interval 342 [facility] QTC interval 427 [facility] QRS axis 1 3 [facility] T wave axis 77 [facility] EKG impression Atrial [facility] fibrillation-Nonspecific ST and T wave abnormality , probably digitalis effect-Abnormal ECG-No previous ECGs available- Narrative Performed At Performing Organization Address [facility] Cent[facility]otn Phone Number [facility] [address] [place] [phone] * Urinalysis screen and microscopy, with reflex to culture (03/27/2018 2:37 PM CARD SETTER) Specimen site Clean catch [facility] Color, UA Red [facility] Appearance, UA Cloudy [facility] Specific gravity, UA 1.017 1.001 - 1.035 [facility] pH, UA 5.0 5.0 - 8.5 [facility] Protein, UA 2+ (A) Negative [facility] Glucose, UA Negative Negative [facility] Ketones, UA Negative Negative [facility] Bilirubin, UA Negative Negative [facility] Blood, UA Large (A) Negative [facility] Nitrite, UA Negative Negative [facility] Urobilinogen, UA <2.0 <2.0 [facility] Leukocyte esterase, UA Moderate (A) Negative [facility] WBC, UA 96 (H) 0 - 1 /HPF [facility] RBC, UA >180 (H) 0 - 5 /HPF [facility] Bacteria, UA Few None seen [facility] Yeast, UA None seen [facility] Yeast with pseudohyphae, None seen [facility] Hyaline casts, UA 12 /LPF [facility] Specimen Urine Performing Organization Address City/[facility]/Zipcode Phone Number [facility] [address] [place] [address] PATHOLOGY AND GENOMIC MEDICINE [address] * Gram stain (03/27/2018 2:37 PM CARD SETTER) Gram stain result Many Gram positive rods [facility] Many Gram positive cocci in HOSPITAL pairs Few WBC's Comment: Specimen Information Specimen Source: Urine Specimen Site: Clean catch Specimen Urine Performing Organization Address [facility] Phone Number [facility] [address] [place] [address] PATHOLOGY AND GENOMIC MEDICINE [address] * Urine culture (03/27/2018 2:37 PM CARD SETTER) Urine culture isolate Enterococcus faecalis [facility] [place] >10-5 cfu/ml [facility] The performance characteristics of this assay on this isolate were validated by the Microbiology Laboratory at [facility].This source has not been approved [...] mcg/mL: Susceptible Enterococcus faecalis Performing Organization Address [facility] Phone Number [facility] [address] [place] [address] PATHOLOGY AND GENOMIC MEDICINE [address] * Hemoglobin A1c (03/27/2018 2:37 PM CARD SETTER) Hemoglobin A1C 6.3 (H) 4.0 - 5.6 [...] Blood Performing Organization Address City/State/Zipcode Phone Number [facility] [address] [place] [address] PATHOLOGY AND GENOMIC MEDICINE [facility] [address] [place] [address] HOSPITAL after 07/16/2017 Insurance Payer Benefit Subscriber ID Type Phone Address Plan / Group MEDICARE MEDICARE xxxxxxxxxxx Medicare [place], [place] PART A AND B BCBS BCBS xxxxxxxxxxxx Indemnity PAR/TRAD PLAN Advance Directives Patient has advance care planning documents on file. For more information, bryce smith contact: [facility] [address] [place] [id number]
--- OUTSIDE RECORDS SUMMARY | 2018-07-17 17:22 | XMS REPORT | Clinical Summary ---
Author Author RADHA [facility] Address Unknown Phone Unavailable Care Team Providers Care Registered Nurse Maternal Child Name Role Phone Kyle Dodge MD PCP Allergies Comments Active Allergy Reactions Severity Noted Date HALLUCINATIONS Codeine 02/15/2016 Sore joints Mu[place]-Sen Reductase Other (See Low 02/10/2016 Inhibitors Comments) [...] Date A-fib 08/24/2016 CAD (coronary artery disease), [place] coronary artery 02/10/2016 DM (diabetes mellitus) type [...] ms QTC Calculatio n(Bazett) 456 ms R Harwood -7 degrees T Harwood 35 degrees Atrial fibrillati on with frequent [...] 7.8 3.5 - 10.5 K/L [facility] RBC 4.14 (L) 4.63 - 6.08 M/L [facility] Hemoglobin 11.2 (L) 13.7 - 17.5 GM/DL [facility] Hematocrit 36.7 (L) 40.1 - 51.0 % [facility] MCV 88.6 79.0 - 92.2 fL [facility] MCH 27.1 25.7 - 32.2 pg [facility] MCHC 30.5 (L) 32.3 - 36.5 GM/DL [facility] RDW 14.6 (H) 11.6 - 14.4 % [facility] Platelets 178 150 - 450 K/CU MM [facility] MPV 9.1 (L) 9.4 - 12.4 fL [facility] nRBC 0 0 - 0 /100 WBC [facility] Specimen Blood Performing Organization Address City/State/Zipcode Phone Number [facility] [address] [place] [address] MEDICAL CENTER * Basic metabolic panel (12/14/2017 3:13 AM CDT) Only the most recent of 3 results within the time period is included. Sodium 136 136 - 145 meq/L [facility] Potassium 4.1 3.5 - 5.1 meq/L [facility] Chloride 103 98 - 107 meq/L [facility] CO2 24 22 - 29 meq/L [facility] BUN 18 7 - 21 mg/dL [facility] Creatinine 1.40 (H) 0.57 - 1.25 mg/dL [facility] Glucose 128 (H) 70 - 105 mg/dL [facility] Calcium 8.5 8.4 - 10.2 mg/dL [facility] EGFR 49Comment: ESTIMATED GFR IS mL/min/1.73 sq m [facility] NOT ACCURATE CREATININE [facility] CLEARANCE IN PREDICTING GLOMERULAR FILTRATION RATE. ESTIMATED GFR IS NOT APPLICABLE FOR DIALYSIS PATIENTS. Specimen Blood Performing Organization Address City/[facility]/Zipcode Phone Number [address] [facility] * POC-Glucose meter (12/14/2017 3:01 AM CDT) POC-Glucose Meter 141 (H)Comment: TESTED AT 70 - 110 mg/dL [address] [address] Specimen Blood Performing Organization Address City/[facility]/Zipcode Phone Number [address] [facility] * POC ACTIVATED CLOTTING TIME (12/13/2017 6:10 PM CDT) Only the most recent of 5 results within the time period is included. Activated Clotting Time 125Comment: TESTED AT [facility] sec [address] Specimen Blood Performing Organization Address City/[facility]/Zipcode Phone Number [address] [facility] * Prothrombin time/INR (12/13/2017 8:23 AM CDT) Protime 16.5 (H) 11.7 - 14.7 seconds [facility] INR 1.3 <=5.9 [facility] Specimen Blood Narrative Performed At RECOMMENDED COUMADIN/WARFARIN INR THERAPY RANGES [facility] STANDARD DOSE: 2.0 - 3.0 Includes: PROPHYLAXIS for venous thrombosis, [facility] systemic embolization; TREATMENT for venous thrombosis and/or pulmonary embolus. HIGH RISK: Target INR is 2.5-3.5 for patients with mechanical heart valves. Performing Organization Address City/[facility]/Zipcode Phone Number [facility] [address] [place] [address] [facility] * ECG 12 lead (12/13/2017 8:13 AM CDT) Narrative Performed At Ventricular Rate 78 BPM GE MUSE Atrial Rate 62 BPM QRS Duration 86 ms Q-T Interval 400 ms QTC Calculation(Bazett) 456 ms R Harwood -7 degrees T Harwood 35 degrees Atrial fibrillation with frequent ventricular-paced complexes Abnormal ECG No previous ECGs available Confirmed by MD FOREMAN JORGE ([id number]) on 12/13/2017 12:13:39 PM Procedure Note Interface, External Ris In - 12/13/2017 12:13 PM CDT Ventricular Rate 78 BPM Atrial Rate 62 BPM QRS Duration 86 ms Q-T Interval 400 ms QTC Calculation(Bazett) 456 ms R Harwood -7 degrees T Harwood 35 degrees Atrial fibrillation with frequent ventricular-paced complexes Abnormal ECG No previous ECGs available Confirmed by MD FOREMAN JORGE ([id number]) on 12/13/2017 12:13:39 PM Performing Organization Address City/State/Zipcode Phone Number [facility] * CBC with platelet count + automated diff (12/13/2017 7:55 AM CDT) WBC 4.9 3.5 - 10.5 K/L [facility] RBC 4.30 (L) 4.63 - 6.08 M/L [facility] Hemoglobin 11.5 (L) 13.7 - 17.5 GM/DL [facility] Hematocrit 37.7 (L) 40.1 - 51.0 % [facility] MCV 87.7 79.0 - 92.2 fL [facility] MCH 26.7 25.7 - 32.2 pg [facility] MCHC 30.5 (L) 32.3 - 36.5 GM/DL [facility] RDW 14.4 11.6 - 14.4 % [facility] Platelets 171 150 - 450 K/CU MM [facility] MPV 8.8 (L) 9.4 - 12.4 fL [facility] nRBC 0 0 - 0 /100 WBC [facility] % Neutros 75 % [facility] % Lymphs 14 % [facility] % Monos 9 % [facility] % Eos 1 % [facility] % Baso 1 % [facility] # Neutros 3.67 1.78 - 5.38 K/L [facility] # Lymphs 0.70 (L) 1.32 - 3.57 K/L [facility] # Monos 0.43 0.30 - 0.82 K/L [facility] # Eos 0.03 (L) 0.04 - 0.54 K/L [facility] # Baso 0.03 0.01 - 0.08 K/L [facility] Immature 1 0 - 1 % [facility] Specimen Blood Performing Organization Address City/State/Zipcode Phone Number [facility] [address] [place] [address] MEDICAL CENTER * Type and screen, automated (12/13/2017 7:54 AM CDT) ABO/RH AUTOMATED (BEAKER) O POSITIVE [facility] Ab Scrn NEGATIVE [facility] Specimen Blood Performing Organization Address City/State/Zipcode Phone Number [facility] [address] [place], [place] [phone] MEDICAL CENTER * ECHOCARDIOGRAM REPORT - SCAN (12/11/2017 3:21 PM CDT) Narrative Performed At * Transesophageal echo (12/11/2017 8:12 AM CDT) Ejection Fraction [facility] MKCKESSON CPA Narrative Performed At Transesophageal Echocardiography Report (SUZETTE) [facility]ographics [facility] Name EDGARDO LIPSCOMB Date of Study 12/11/2017 VLAD [id number] GenderMale Visit Number [id number] RaceUnknown [id number] Number OP Number Date of Birth1940 Referring Physician Delmy Aldrich Age77 year(s) Rack Pusher Monty 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 No LA appendage Thrombus visualized. Ffcd-nr-pykoaebp aortic regurgitation. Right ventricular systolic pressure is [...] Aortic ValveAortic valve is normal in appearance. Opzp-li-pplzqpyv aortic regurgitation. Mitral ValveMitral valve is normal in appearance. Mild mitral regurgitation. Tricuspid Jvzw-pe-rajmoxcj tricuspid regurgitation. Right ventricular Valve systolic pressure [...] Study 12/11/2017 VLAD Gender Male Visit Number [id number] Race Unknown Room Number OP Number Date of 1940 Referring Physician Delmy Aldrich Age 77 year(s) Rack Pusher Monty Johnson Interpreting Noam Waite Physician Fellow [...] normal . No LA appendage Thrombus visualized. Zpli-lu-ustkdyli aortic regurgitation. Right ventricular systolic pressure is [...] Valve Aortic valve is normal in appearance. Zacj-ru-pnrvhqgm aortic regurgitation. Mitral Valve Mitral valve is normal in appearance. Mild mitral regurgitation. Tricuspid Vndf-xm-tckjcuwi tricuspid regurgitation. Right ventricular Valve systolic pressure [...] AM CDT) Narrative Performed At Addendum Begins [employer] REPORT STATUS:A Addendum: I agree with the previously described non vascular findings. Signed: Shamar Walters MD Report Verified Date/Time:12/11/2017 14:59:15 Reading Location: [place] [id number] Angio Body Reading Room Addendum Ends FINAL [...] by the interpreting physician using an independent (Liveyearbook) workstation. Please refer to the contrast sheet [...] dictated regarding the non-vascular findings by the Forest And Conservation Worker Radiologist. Signed: Delvin Sorto MD Report Verified Date/Time:12/11/2017 08:33:56 Reading Location: [place] [id number] Cardiology MRI Procedure Note Interface, External Ris In - 12/11/2017 3:01 PM CDT Addendum Begins REPORT STATUS:A Addendum: I agree with the previously described non vascular findings. Signed: Shamar Walters MD Report Verified Date/Time: 12/11/2017 14:59:15 Reading Location: [facility] P[address] Angio Body Reading Room [...] by the interpreting physician using an independent (Liveyearbook) workstation. Please refer to the contrast sheet [...] dictated regarding the non-vascular findings by the Forest And Conservation Worker Radiologist. Signed: Delvin Sorto MD Report Verified Date/Time: 12/11/2017 08:33:56 Reading Location: [place] [address] Cardiology MRI Performing Organization Address City/[facility] Phone Number GE RIS * POC-Creatinine (12/11/2017 7:31 AM CDT) POC-Creatinine 1.2Comment: [facility] - 1.3 mg/dL [address] POC-EGFR 59 mL/min/1.73M2 [facility] Specimen Blood Performing Organization Address City/[facility]/[place] [address] [facility] * PT/aPTT (12/11/2017 6:49 AM CDT) Protime 23.8 (H) 11.7 - 14.7 seconds [facility] INR 2.1 <=5.9 [facility] PTT 56.1 (H) 22.5 - 36.0 seconds [facility] Specimen Blood Narrative Performed At RECOMMENDED COUMADIN/WARFARIN INR THERAPY RANGES [facility] STANDARD DOSE: 2.0 - 3.0 Includes: PROPHYLAXIS for venous thrombosis, [facility] systemic embolization; TREATMENT for venous thrombosis and/or pulmonary embolus. HIGH RISK: Target INR is 2.5-3.5 for patients with mechanical heart valves. Performing Organization Address City/State/Zipcode Phone Number [facility] [address], [place] [phone] [facility] after 07/16/2017 Insurance Payer Benefit Subscriber ID Type Phone Address Plan / Group MEDICARE MEDICARE A xxxxxxxxxx Medicare B BLUE CROSS/BLUE SHIELD BCBS xxxxxxxxxxxx PPO [phone] [address] [place] [address] [place] Advance Directives For more information, please contact: [address] [phone] Date Inactivated Comments Code Status Date Activated [...]
[2018-07-17] MEDS ORDERED: HYDROMORPHONE 2MG/ML 2 MG/ML ML IV PRN (17:30)
[2018-07-17] MEDS: CEFEPIME 1GM/NS 0.9% 50 ML 50 ML IV SCH (18:02)
[2018-07-17] MEDS ORDERED: GABAPENTIN100 MG PO (18:04)
[2018-07-17] MEDS ORDERED: VITAMIN D3 (18:04)
[2018-07-17] MEDS ORDERED: CO Q-10100 MG PO (18:04)
[2018-07-17] MEDS ORDERED: MAGNESIUM OXID400 MG PO (18:04)
[2018-07-17] MEDS ORDERED: FOLIC (18:04)
[2018-07-17] MEDS ORDERED: FISH OIL 1,2001 EACH PO (18:04)
[2018-07-17] MEDS ORDERED: FINASTERIDE5 MG PO (18:04)
[2018-07-17] MEDS ORDERED: DIGOXIN125 MCG PO (18:04)
[2018-07-17 18:27] VITALS: BP 127/84
[2018-07-17] MEDS ORDERED: DEXAMETHASONE PHOS 10MG INJ 20 MG in SODIUM CHLORIDE 0.9% 50ML 50 ML IV ONE (18:45)
[2018-07-17 19:00] VITALS: BP 127/84
[2018-07-17] MEDS ORDERED: FAMOTIDINE INJ 20 MG in SODIUM CHLORIDE 0.9% 50ML 50 ML IV ONE (19:00)
[2018-07-17] MEDS ORDERED: DIPHENHYDRAMINE HCL INJ 25 MG in SODIUM CHLORIDE 0.9% 50ML 50 ML IV ONE (19:00)
--- NOTE | 2018-07-17 19:00 | NUR ---
patient is a new admit. patient is awake and talking. patient is resting comfortably in bed. bed is in lowest position and call blank is within reach. will continue to monitor patient.
[2018-07-17] MEDS ORDERED: IRON DEXTRAN INJ 50 MG in SODIUM CHLORIDE 0.9% 100 ML IV ONE (19:30)
[2018-07-17 19:36] LABS: BASOPHILS % 0.5 % (0.0-1.0); EOSINOPHILS # (AUTO) 0.1 (0.0-0.4); EOSINOPHILS % 1.1 % (0.0-6.0); HEMATOCRIT 37.2 % (38.2-49.6); HEMOGLOBIN 10.8 g/dL (14.0-18.0); LYMPHOCYTES # (AUTO) 0.9 (1.0-3.2); LYMPHOCYTES % 13.6 % (18.0-39.1); MEAN CORPUSCULAR HEMOGLOBIN 24.5 pg (28-32); MEAN CORPUSCULAR VOLUME 84.4 fL (81-99); MONOCYTES # (AUTO) 0.6 (0.2-0.8); MONOCYTES % 8.9 % (4.4-11.3); NEUTROPHILS # (AUTO) 4.7 (2.1-6.9); NEUTROPHILS % 75.6 % (38.7-80.0); PLATELET COUNT 229 x10e3/uL (140-360); RED BLOOD COUNT 4.41 x10e6/uL (4.3-5.7); RED CELL DISTRIBUTION WIDTH 22.7 % (11.7-14.4)
[2018-07-17 20:00] VITALS: BP 124/74
[2018-07-17 20:08] VITALS: BP 124/74
[2018-07-17] MEDS: INSULIN LISPRO 100 UNIT/1 ML 3ML VIAL SQ SCH (20:25)
[2018-07-17] MEDS ORDERED: IRON DEXTRAN INJ 500 MG in SODIUM CHLORIDE 0.9% 500ML 500 ML IV PRN (20:30)
[2018-07-17 20:35] LABS: ANISOCYTOSIS SLIGHT; HYPOCHROMASIA SLIGHT; PLATELET ESTIMATE ADEQUATE; PLATELET MORPHOLOGY COMMENT NORMAL; RBC MORPHOLOGY COMMENT NORMAL
[2018-07-18] VITALS (7 sets, daily range): BP systolic 114–156; BP diastolic 77–90
[2018-07-18] MEDS ORDERED: SODIUM CHLORIDE 0.9% 250ML 250 ML ONE (04:59)
[2018-07-18] MEDS: CEFEPIME 1GM/NS 0.9% 50 ML 50 ML IV SCH ×2 (05:11→18:18)
[2018-07-18 05:54] LABS: BASOPHILS % 0.3 % (0.0-1.0); HEMATOCRIT 32.9 % (38.2-49.6); HEMOGLOBIN 9.7 g/dL (14.0-18.0); LYMPHOCYTES # (AUTO) 0.3 (1.0-3.2); LYMPHOCYTES % 7.4 % (18.0-39.1); MEAN CORPUSCULAR HEMOGLOBIN 24.4 pg (28-32); MEAN CORPUSCULAR HGB CONC 29.5 g/dL (31-35); MEAN CORPUSCULAR VOLUME 82.9 fL (81-99); MONOCYTES # (AUTO) 0.1 (0.2-0.8); MONOCYTES % 2.6 % (4.4-11.3); NEUTROPHILS # (AUTO) 3.1 (2.1-6.9); NEUTROPHILS % 89.1 % (38.7-80.0); PLATELET COUNT 167 x10e3/uL (140-360); RED BLOOD COUNT 3.97 x10e6/uL (4.3-5.7); RED CELL DISTRIBUTION WIDTH 22.6 % (11.7-14.4)
[2018-07-18 06:09] LABS: ANION GAP 13.8 mmol/L (8-16); BLOOD UREA NITROGEN 19 mg/dL (7-26); BUN/CREATININE RATIO 20 (6-25); CALCIUM 7.8 mg/dL (8.4-10.2); CARBON DIOXIDE 25 mmol/L (22-29); CHLORIDE 103 mmol/L (98-107); CREATININE, SERUM 0.93 mg/dL (0.72-1.25); EST GLOMERULAR FILTRATION RATE > 60 ML/MIN (60-); GLUCOSE 170 mg/dL (74-118); POTASSIUM 3.8 mmol/L (3.5-5.1); SODIUM 138 mmol/L (136-145)
--- NOTE | 2018-07-18 07:17 | NUR ---
Walking rounds done. Patient is awake and alert in NAD. He denies any pain or discomfort at this time. POC discussed. Patient was instructed to call for assistance and verbalized understanding. Bed in lowest position, locked, and call blank within reach.
--- NOTE | 2018-07-18 07:18 | NUR ---
report given to day nurse. patient is resting comfortably in bed. bed is in lowest position and call blank is within reach.
[2018-07-18] MEDS: INSULIN LISPRO 100 UNIT/1 ML 3ML VIAL SQ SCH ×4 (07:30→20:41)
[2018-07-18] MEDS: GABAPENTIN 100 MG CAP PO SCH (09:00)
[2018-07-18] MEDS: MIDODRINE 2.5 MG TAB PO SCH ×2 (09:00→17:00)
[2018-07-18] MEDS: METOPROLOL SUCCINATE 25 MG TAB XL PO SCH ×2 (09:00→18:18)
[2018-07-18] MEDS ORDERED: CLOPIDOGREL BISULFATE 75 MG TAB PO SCH (09:00)
[2018-07-18] MEDS: DIGOXIN 0.125 MG TAB PO SCH (09:00)
[2018-07-18] MEDS: APIXAB 2.5 MG TABLET PO SCH ×2 (09:00→17:00)
[2018-07-18] MEDS: FINASTERIDE 5 MG TAB PO SCH (09:00)
[2018-07-18] MEDS: MAGNESIUM OXIDE 400 MG TAB PO SCH (09:00)
[2018-07-18] MEDS: FUROSEMIDE 20 MG TAB PO SCH ×2 (09:00→18:18)
[2018-07-18] MEDS: SPIRONOLACTONE 25 MG TAB PO SCH ×2 (09:00→18:18)
--- NOTE | 2018-07-18 11:41 | Diagnostic Imaging Report ---
Limited bilateral chest ultrasound History: Evaluate size of known pleural effusions. Comparison: Chest radiograph 07/17/2018. Technique/findings: Limited bilateral chest ultrasound was performed to evaluate for pleural effusion. Bilateral small pleural effusions are identified. IMPRESSION: Bilateral small pleural effusions. Signed by: Dr. Jose Love MD on 07/18/2018 11:37 AM
--- NOTE | 2018-07-18 12:00 | Diagnostic Imaging Report ---
EXAM: US ABDOMEN COMPLETE, US PELVIS COMPLETE NON OB INDICATION: Abdominal pain. COMPARISON: CT abdomen/pelvis 07/13/2018. TECHNIQUE: Transverse and longitudinal swain scale and color doppler sonographic images of the abdomen and pelvis were obtained. FINDINGS: Exam is somewhat limited due to bowel gas. LIVER 15.3 cm in the right midclavicular line. Increased echogenicity of the liver with normal contour, no masses. SPLEEN 13.1 cm in maximum diameter. Normal echogenicity, no masses. GALLBLADDER Status post cholecystectomy. BILE DUCTS No intra nor extra-hepatic biliary dilation. Common bile duct measures 0.5cm PANCREAS: Not well seen due to overlying gas. RIGHT KIDNEY: 10.8 cm Echogenicity: Normal Collecting System: No hydronephrosis Stones: None Cyst/Mass: No evidence of solid mass. There is a 2.1 cm simple appearing exophytic anechoic right renal cyst. LEFT KIDNEY: 11.4 cm Echogenicity: Normal Collecting System: No hydronephrosis Stones: None Cyst/Mass: None BLADDER: Decompressed and incompletely evaluated. Bladder volume 16.6 cc. VESSELS: Aorta: Not well seen due to overlying gas. Inferior Vena Cava: Not well seen due to overlying gas. Main Portal Vein: 0.8 cm, normal size with hepatopetal flow. FREE FLUID: Small amount of ascites in the right upper quadrant and moderate volume ascites within the right lower quadrant and left lower quadrant. IMPRESSION: Hepatic steatosis. Liver size measures at the upper limits of normal. Moderate volume ascites. Status post cholecystectomy. Simple appearing right renal cyst. Signed by: Dr. Jose Love MD on 07/18/2018 11:57 AM
--- NOTE | 2018-07-18 17:30 | NUR ---
Dr. Gross making rounds, aware Dr. Love did not do paracentesis because the patient had Plavix on Monday. Per Dr. Love patient needs to be off Plavix for 5 days and Eliquis for [address] Gross Plavix needs to continue to be on hold and Pt will continue Eliquis until Monday. Dr. Rashid paged to notify
--- NOTE | 2018-07-18 19:11 | Diagnostic Imaging Report ---
EXAM: Right Upper Quadrant Ultrasound INDICATION: Ascites. Unknown cause. COMPARISON: Abdominal ultrasound 07/18/2018. TECHNIQUE: Transverse and longitudinal images of the right upper abdomen were obtained. FINDINGS: Moderate amount of ascites in all 4 quadrants of the abdomen with the largest pocket in the left upper quadrant. IMPRESSION: Moderate ascites. Signed by: Dr. Nathan Staples M.D. on 07/18/2018 7:07 PM
[2018-07-19] VITALS (7 sets, daily range): BP systolic 117–146; BP diastolic 66–97
[2018-07-19] MEDS: CEFEPIME 1GM/NS 0.9% 50 ML 50 ML IV SCH ×2 (04:17→17:19)
--- NOTE | 2018-07-19 06:50 | NUR ---
Walking rounds done and report given. Patient is resting with eyes closed, respirations are equal and unlabored. POC discussed. Patient instructed to call for assistance as needed. Bed in lowest position, locked, bed alarm on for safety, and call blank within reach.
[2018-07-19] MEDS: INSULIN LISPRO 100 UNIT/1 ML 3ML VIAL SQ SCH ×3 (07:30→16:30)
[2018-07-19] MEDS: SPIRONOLACTONE 25 MG TAB PO SCH (09:11)
[2018-07-19] MEDS: APIXAB 2.5 MG TABLET PO SCH ×2 (09:11→17:00)
[2018-07-19] MEDS: FUROSEMIDE 20 MG TAB PO SCH (09:12)
[2018-07-19] MEDS: MIDODRINE 2.5 MG TAB PO SCH ×2 (09:12→17:19)
[2018-07-19] MEDS: MAGNESIUM OXIDE 400 MG TAB PO SCH (09:12)
[2018-07-19] MEDS: GABAPENTIN 100 MG CAP PO SCH (09:12)
[2018-07-19] MEDS: DIGOXIN 0.125 MG TAB PO SCH (09:12)
[2018-07-19] MEDS: FINASTERIDE 5 MG TAB PO SCH (09:12)
[2018-07-19] MEDS: METOPROLOL SUCCINATE 25 MG TAB XL PO SCH ×2 (09:12→17:19)
--- NOTE | 2018-07-19 14:00 | NUR ---
Per Dr. Anderson patient may go home after bone scan. He can follow up at the office for Bone scan report. MD will see if he is still inpt. Dr. Howard paged to update.
--- NOTE | 2018-07-19 15:30 | NUR ---
Per Dr. Howard patient may go home and follow up with dr. Anderson and Dr. Gross.
--- NOTE | 2018-07-19 15:49 | NUR ---
Nutrition Screen Note RD Recommendation for Physician: -Continue ADA diet as ordered -RD discussed menu options with pt. Plan of Care: RD following, monitoring for tolerance and adequacy Nutrition reason for involvement: Diagnosis ascites Primary Diagnose(s): Ascites unknown cause, abdominal pain PMH: Non-STEMI, hypertension, diabetes mellitus, enlarged prostate, TURP Ht: 75in Wt: 235lb BMI: 29.4kg/m2 IBW: 196lb RD Assessment: (07/19) Chart reviewed. Labs and meds reviewed. 78yo M, who was admitted for ascites. Visited pt in the room. Pt reported poor appetite for 2-3 weeks due to not feeling good. No nausea or vomiting noted. LBM 07/19. Pt denied any chewing or swallowing difficulty. Pt reported gaining weight in the last couple weeks. RD discussed menu options with pt, hoping to increase PO intake during his hospital stay. Will continue to monitor and follow. Current Diet: ADA diet Malnutrition Evaluation (07/19) The patient does not meet criteria for a specified degree of malnutrition at this time. Will re-evaluate at follow-up as appropriate. Energy intake: <75% of estimated energy requirements for >7 days Weight loss: Unable to determine due to ascites Fat loss: None Muscle loss: None Supporting Evidence: Fluid accumulation: Moderate Functional Status: no changes Diet Education Needs Assessment: Diet education not indicated. Nutrition Care Level: low Signed: Riddhi Green MS, RD, LD
--- NOTE | 2018-07-19 15:55 | NUR ---
SOCIAL WORK INITIAL ASSESSMENT [address] Service to bedside to discuss plan of care with patient/family. CM/SW role and care transitions discussed. Anticipated discharge plan discussed along with duration of care. CM/SW discussed patients right to make decisions in care. CM/SW work hours given. Patient lives: IN HOUSE WITH Admit/Transfer: VIA ED POA/Emergency contact: MARITA [phone] Current/Previous Home Health: NONE PCP/Follow-up Care: DESTINEY Current/Previous DME: NONE Other Services: NONE Employment Status: RETIRED Areas of Concerns: NONE Referral Needs: NONE Education Needs: NONE IMM/MOTLEY given and signed (if applicable): UPON ADMISSION Goal for discharge: RETURN HOME CM/SW left business card at the bedside with contact information. Name and number was also written on the patients whiteboard. Patient verbalized understanding of discussion. CM will follow-up with ongoing discharge and transition of care needs.
--- NOTE | 2018-07-19 16:22 | NUR ---
Per patient will be scheduled for paracentesis Monday and order not received in radiology department. Spoke to Yuliana RN in radiology and she stated Dr. Townsend is the IR oncall for Monday and wants patient to be off Plavix and Eliquis for 5 days. Industrial Health Engineer explained that Dr. Love IR had said to hold Eliquis for 48 hours only and Plavix for 5 days. Per Radiology nurse order is needed for out patient paracentesis before it can be scheduled and Patient should not receive Eliquis if the plan is for paracentesis Monday. and patient update. They want to wait to talk to Dr. Carlson before discharging.
--- NOTE | 2018-07-19 18:15 | NUR ---
Patient and awaiting Dr. Anderson roundjuliette. Call blank within reach.
--- NOTE | 2018-07-19 20:04 | Diagnostic Imaging Report ---
Bone Scan, delayed phase INDICATION: 78 M diabetic with referred abdominal pain; loss of appetite, OR in 04/2018, CHF and ascites. COMPARISON: CT abdo/pelvis 07/13/2018 REPORT: Approximately 3 hours following intravenous administration of 26 mCi of Tc-99m MDP, delayed total body images in the anterior and posterior projections and selected spot images were obtained. Distribution of tracer activity is unremarkable throughout the skeletal system. Ascites is present.. No abnormal accumulation of tracer is seen in the renal collecting system. IMPRESSION: No scan evidence of metastatic or metabolic bone disease. Signed by: Dr. Steffany Weems M.D. on 07/19/2018 8:01 PM
--- NOTE | 2018-07-20 03:09 | Consultation ---
DATE OF CONSULTATION: 07/17/2018 HISTORY OF PRESENT ILLNESS: Mr. Medlelin is a 78-year-old male, who presented to the office on 07/16/2018 complaining of constant dull and aching pain, mid and lower abdomen. "The only time I feel a little bit better is when I am lying down." CT of the abdomen and pelvis done on 07/13/2018, reported an interval development of moderate ascites, fatty liver, reflux of contrast into the IVC, suggestive of right heart dysfunction, trace bilateral pleural effusions with patchy atelectasis. Bladder appeared decompressed and appeared circumferentially thickened. Subsequently because of abdominal pain, the patient came to the ER, subsequently seen and admitted for further evaluation and treatment. PAST MEDICAL HISTORY: History of past illness, history of CT. MEDICATIONS: Medications at this time: 1. Finasteride. 2. Protonix. 3. Plavix. 4. Metoprolol. 5. Eliquis. 6. Midodrine. 7. Clonazepam. 8. Digoxin. 9. Fish oil. 10. D3. 11. Magnesium. 12. CoQ10. 13. Folic acid. 14. Aldactone. 15. Gabapentin. 16. Lasix. REVIEW OF SYSTEMS: CARDIAC: History of hypertension. RESPIRATORY: History of congestive heart failure. GI: Ascites. : History of TURP, with which he bled, had an CT. MUSCULOSKELETAL: Normal. SKIN AND BREASTS: Normal. PHYSICAL EXAMINATION: GENERAL: A large built male, anemic. NECK: No palpable adenopathy. HEART: Within normal limits. LUNGS: Showing crepitations. ABDOMEN: Obese. Ascites is felt. RECTAL EXAM: Deferred. CENTRAL NERVOUS SYSTEM: Essentially normal. LABORATORY DATA: Hemoglobin of 9.2. IMPRESSION: 1. Iron deficiency anemia. 2. Essential hypertension. 3. History of type 2 diabetes. 4. History of cardiac arrhythmia. 5. Benign prostatic hyperplasia. 6. History of congestive heart failure. 7. History of ascites. PLAN: Plan is to give him NSAID. The patient is suggested to have a total body bone scan to make sure this is not a referred pain from any bone lesion. Also have ascites tap. MD CHAITANYA Day/PERRY /[id number] cc: Joaquin Howard MD
--- NOTE | 2018-07-21 03:48 | Discharge Summary ---
DISCHARGE DIAGNOSES: 1. . 2. Coronary artery disease. 3. Heart failure. HISTORY OF PRESENT ILLNESS AND HOSPITAL COURSE: See hospital chart for full details. The patient was admitted per the request of Dr. Chaudhry due to worsening ascites that was felt secondary to be due to his heart disease, so he was brought in and seen by Dr. Chaudhry and Dr. Tejada, his ssis etl developer, who wanted to do a therapeutic paracentesis, where an ultrasound showed moderate amount of ascites was unremarkable, but due to him being on anticoagulants and the patient being stable and actually wanted to go home, they felt that they can go and hold his anticoagulants, have to follow up as an outpatient for his paracentesis and then continue his further care as an outpatient, which the patient was . He was then discharged home in good condition with discontinuing of his anticoagulants. Follow up next week for his paracentesis. Please see hospital chart for full details. MD RAMAKRISHNA Adrian/PERRY /[id number]
== END 2018-07-19 19:31 | disposition home or self-care (01) ==
LOC: ER 10:18 → ERHOLD 16:49 → IMCU 18:19
PROVIDERS: ADMIT Internal Medicine; ATTEND Internal Medicine
DX: I11.0 Hypertensive heart disease with heart failure (principal); R18.8 Other ascites; K76.0 Fatty (change of) liver, not elsewhere classified; D64.9 Anemia, unspecified; D50.9 Iron deficiency anemia, unspecified; N40.0 Benign prostatic hyperplasia without lower urinary tract symptoms; E11.9 Type 2 diabetes mellitus without complications; G93.40 Encephalopathy, unspecified; I25.10 Atherosclerotic heart disease of native coronary artery without angina pectoris; I50.23 Acute on chronic systolic (congestive) heart failure; Z79.4 Long term (current) use of insulin
CPT/HCPCS: 36415 ×3; 71046; 76604; 76700; 76705; 76856; 78306; 80048; 80053; 81001; 82140; 82550; 82553; 82948 ×3; 83880; 84152; 84484; 85025 ×2; 85610; 85730; 93005; 93306; 99284; A9503; G0378 ×3; J0692 ×3; J1100; J1200; J1750; J7040; J7050 ×2

== ENCOUNTER → 2018-07-23 | Outpatient (CLI) | payer MEDICARE, BC ==
[~2018-07-23] MED LIST changes: +CO Q-10100 MG PO; +FISH OIL 1,2001 EACH PO; +FOLIC; +GABAPENTIN100 MG PO; +MAGNESIUM OXID400 MG PO; +VITAMIN D3
--- NOTE | 2018-07-23 12:30 | Diagnostic Imaging Report ---
EXAM: Ultrasound-guided paracentesis DATE: 07/23/2018 10:04 AM INDICATION: CHF with ascites COMPARISON: None PROCEDURES PERFORMED: Ultrasound guided paracentesis Ultrasound images archived in PACS. Anesthesia: Local, 1% lidocaine Devices: 5-[place] centesis needle PROCEDURE REPORT: After informed consent was obtained, ultrasound was utilized to identify the largest pocket of ascitic fluid in the left mid abdomen. A safe entry route was identified and the overlying skin was prepped and draped in usual sterile fashion. Lidocaine1% was used for local anesthesia. Under ultrasound guidance, a 5 [place] centesis needle was advanced into the ascites in the left side of the abdomen. A total of 1,200 cc were aspirated without complication. The catheter was removed and a dressing applied to the skin. Complications: None Blood loss: Minimal, less than 1cc Samples: 1,200 cc of fluid sent to the laboratory for analysis Patient disposition: Stable IMPRESSION: Uncomplicated ultrasound guided paracentesis with removal of 1,200 cc. Signed by: Dr. Bo Townsend DO on 07/23/2018 12:26 PM
[2018-07-23 14:13] LABS: BODY FLUID APPEARANCE SL.CLOUDY; BODY FLUID COLOR YELLOW; BODY FLUID TYPE PLEURAL
[2018-07-23 14:35] LABS: RBC,BODY FLUID 814 cells/uL; WBC,BODY FLUID 41 cells/uL
[2018-07-23 15:01] LABS: LYMPHOCYTES,BODY FLUID 32 %; MONO/MACROPHG,BODY FLUID 14 %; NEUTROPHILS,BODY FLUID 31 %; OTHER CELLS,BODY FLUID 23 %
== END ==
LOC: US 09:51
PROVIDERS: ATTEND Internal Medicine Medical Oncology
DX: I50.9 Heart failure, unspecified (principal); R18.8 Other ascites
CPT/HCPCS: 36415; 49083; 87070; 87205; 88112; 88305; 89051; C1729

== ENCOUNTER → 2018-09-26 | Day surgery (SDC) | payer MEDICARE, BC ==
[2018-09-24 16:35] LABS: BASOPHILS % 0.6 % (0.0-1.0); EOSINOPHILS % 0.3 % (0.0-6.0); HEMATOCRIT 38.8 % (38.2-49.6); HEMOGLOBIN 12.2 g/dL (14.0-18.0); LYMPHOCYTES # (AUTO) 0.8 (1.0-3.2); LYMPHOCYTES % 12.2 % (18.0-39.1); MEAN CORPUSCULAR HEMOGLOBIN 27.7 pg (28-32); MEAN CORPUSCULAR HGB CONC 31.4 g/dL (31-35); MONOCYTES # (AUTO) 0.6 (0.2-0.8); MONOCYTES % 9.1 % (4.4-11.3); NEUTROPHILS # (AUTO) 5.3 (2.1-6.9); NEUTROPHILS % 77.1 % (38.7-80.0); PLATELET COUNT 129 x10e3/uL (140-360); RED BLOOD COUNT 4.41 x10e6/uL (4.3-5.7)
[2018-09-24 17:08] LABS: LYMPHOCYTES % (MANUAL) 9 % (19-48); MONOCYTES % (MANUAL) 9 % (3.4-9.0); NEUTROPHILS % (MANUAL) 82 % (40-74)
[2018-09-24 17:09] LABS: PLATELET ESTIMATE MARKEDLY DECREASED; PLATELET MORPHOLOGY COMMENT NORMAL
[~2018-09-26] MED LIST changes: +ALLERGY PILL; +DEXTROSE 5% 250ML 250 ML IV ONE; +FOLIC ACID; +LOVENOX60 MG/0.6 SC; +MAGNESIUM OXID500 MG; +PROPOFOL IV EMULSION 10 MG/ML 20 ML VIAL ONE; +[UNRECOGNIZED DRUG - OTHER]
--- OUTSIDE RECORDS SUMMARY | 2018-09-26 10:03 | XMS REPORT | Clinical Summary ---
Author Author RADHA [facility] Address Unknown Phone Unavailable Care Team Providers Care Religious Education Coordinator Name Role Phone Kyle Dodge MD PCP Allergies Comments Active Allergy Reactions Severity Noted Date HALLUCINATIONS Codeine 02/15/2016 Sore joints Qqiwucz-Dss-Eoa Reductase Other (See Low 02/10/2016 Inhibitors Comments) [...] Date A-fib 08/24/2016 CAD (coronary artery disease), [place] coronary artery 02/10/2016 DM (diabetes mellitus) type [...] breath 12/06/2017 Outside Orders Central Scheduling after 09/25/2017 Social History Date Tobacco Use Types Packs/Day [...] ms QTC Calculatio n(Bazett) 456 ms R [place] -7 degrees T [place] 35 degrees Atrial fibrillati on with frequent [...] unspecified type (HCC) Shortness of breath after 09/25/2017 Results * RHYTHM STRIP - SCAN (12/15/2017 [...] CDT) WBC 7.8 3.5 - 10.5 K/L [facility] RBC 4.14 (L) 4.63 - 6.08 M/L [facility] Hemoglobin 11.2 (L) 13.7 - 17.5 GM/DL [facility] Hematocrit 36.7 (L) 40.1 - 51.0 % [facility] MCV 88.6 79.0 - 92.2 fL [facility] MCH 27.1 25.7 - 32.2 pg [facility] MCHC 30.5 (L) 32.3 - 36.5 GM/DL [facility] RDW 14.6 (H) 11.6 - 14.4 % [facility] Platelets 178 150 - 450 K/CU MM [facility] MPV 9.1 (L) 9.4 - 12.4 fL [facility] nRBC 0 0 - 0 /100 WBC [facility] Specimen Blood Performing Organization Address City/State/Zipcode Phone Number [facility] [address] [place] [address] MEDICAL CENTER * Basic metabolic panel (12/14/2017 3:13 AM CDT) Only the most recent of 3 results within the time period is included. Sodium 136 136 - 145 meq/L [facility] Potassium 4.1 3.5 - 5.1 meq/L [facility] Chloride 103 98 - 107 meq/L [facility] CO2 24 22 - 29 meq/L [facility] BUN 18 7 - 21 mg/dL [facility] Creatinine 1.40 (H) 0.57 - 1.25 mg/dL [facility] Glucose 128 (H) 70 - 105 mg/dL [facility] Calcium 8.5 8.4 - 10.2 mg/dL [facility] EGFR 49Comment: ESTIMATED GFR IS mL/min/1.73 sq m [facility] NOT ACCURATE CREATININE [facility] CLEARANCE IN PREDICTING GLOMERULAR FILTRATION RATE. ESTIMATED GFR IS NOT APPLICABLE FOR DIALYSIS PATIENTS. Specimen Blood Performing Organization Address City/[facility]/Zipcode Phone Number [address] [address] [facility] * POC-Glucose meter (12/14/2017 3:01 AM CDT) POC-Glucose Meter 141 (H)Comment: TESTED AT 70 - 110 mg/dL [address] [address] Specimen Blood Performing Organization Address City/[facility]/Zipcode Phone Number [address] [address] [facility] * POC ACTIVATED CLOTTING TIME (12/13/2017 6:10 PM CDT) Only the most recent of 5 results within the time period is included. Activated Clotting Time 125Comment: TESTED AT [facility] sec [address] Specimen Blood Performing Organization Address City/[facility]/Zipcode Phone Number [address] [address] [facility] * Prothrombin time/INR (12/13/2017 8:23 AM CDT) Protime 16.5 (H) 11.7 - 14.7 seconds [facility] INR 1.3 <=5.9 [facility] Specimen Blood Narrative Performed At RECOMMENDED COUMADIN/WARFARIN INR THERAPY RANGES [facility] STANDARD DOSE: 2.0 - 3.0 Includes: PROPHYLAXIS for venous thrombosis, [facility] systemic embolization; TREATMENT for venous thrombosis and/or pulmonary embolus. HIGH RISK: Target INR is 2.5-3.5 for patients with mechanical heart valves. Performing Organization Address City/[facility]/Zipcode Phone Number [facility] [address] [place] [address] [facility] * ECG 12 lead (12/13/2017 8:13 AM CDT) Specimen Narrative Performed At Ventricular Rate 78 BPM GE MUSE Atrial Rate 62 BPM QRS Duration 86 ms Q-T Interval 400 ms QTC Calculation(Bazett) 456 ms R [place]on -7 degrees T [place] 35 degrees Atrial fibrillation with frequent ventricular-paced complexes Abnormal ECG No previous ECGs available Confirmed by MD FOREMAN JORGE ([id number]) on 12/13/2017 12:13:39 PM Procedure Note Interface, External Ris In - 12/13/2017 12:13 PM CDT Ventricular Rate 78 BPM Atrial Rate 62 BPM QRS Duration 86 ms Q-T Interval 400 ms QTC Calculation(Bazett) 456 ms R Avon -7 degrees T [place] 35 degrees Atrial fibrillation with frequent ventricular-paced complexes Abnormal ECG No previous ECGs available Confirmed by MD FOREMAN JORGE ([id number]) on 12/13/2017 12:13:39 PM Performing Organization Address City/State/Zipcode Phone Number [employer] * CBC with platelet count + automated diff (12/13/2017 7:55 AM CDT) WBC 4.9 3.5 - 10.5 K/L [facility] RBC 4.30 (L) 4.63 - 6.08 M/L [facility] Hemoglobin 11.5 (L) 13.7 - 17.5 GM/DL [facility] Hematocrit 37.7 (L) 40.1 - 51.0 % [facility] MCV 87.7 79.0 - 92.2 fL [facility] MCH 26.7 25.7 - 32.2 pg [facility] MCHC 30.5 (L) 32.3 - 36.5 GM/DL [facility] RDW 14.4 11.6 - 14.4 % [facility] Platelets 171 150 - 450 K/CU MM [facility] MPV 8.8 (L) 9.4 - 12.4 fL [facility] nRBC 0 0 - 0 /100 WBC [facility] % Neutros 75 % [facility] % Lymphs 14 % [facility] % Monos 9 % [facility] % Eos 1 % [facility] % Baso 1 % [facility] # Neutros 3.67 1.78 - 5.38 K/L [facility] # Lymphs 0.70 (L) 1.32 - 3.57 K/L [facility] # Monos 0.43 0.30 - 0.82 K/L [facility] # Eos 0.03 (L) 0.04 - 0.54 K/L [facility] # Baso 0.03 0.01 - 0.08 K/L [facility] Immature 1 0 - 1 % [facility] Specimen Blood Performing Organization Address City/State/Zipcode Phone Number [facility] [address] [place] [address] MEDICAL CENTER * Type and screen, automated (12/13/2017 7:54 AM CDT) ABO/RH AUTOMATED (BEAKER) O POSITIVE [facility] Ab Scrn NEGATIVE [facility] Specimen Blood Performing Organization Address City/State/Zipcode Phone Number [facility] [address] [place], [place] [phone] [facility] * ECHOCARDIOGRAM REPORT - SCAN (12/11/2017 3:21 PM CDT) Narrative Performed At * Transesophageal echo (12/11/2017 8:12 AM CDT) Ejection Fraction [facility] CPA Specimen Narrative Performed At Transesophageal Echocardiography Report (SUZETTE) [facility] Demographics [facility] Patient Name EDGARDO LIPSCOMB Date of Study 12/11/2017 VLAD [id number] GenderMale Visit Number [id number] RaceUnknown [id number] Number OP Number Date of Birth1940 Referring Physician Delmy Aldrich Age77 year(s) 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 No LA appendage Thrombus visualized. Fbyv-rq-fyclgiwf aortic regurgitation. Right ventricular systolic pressure is [...] Aortic ValveAortic valve is normal in appearance. Ixnl-hz-hsawsjjt aortic regurgitation. Mitral ValveMitral valve is normal in appearance. Mild mitral regurgitation. Tricuspid Lvhk-hf-sayfwmfc tricuspid regurgitation. Right ventricular Valve systolic pressure [...] Study 12/11/2017 VLAD Gender Male Visit Number [id number] Race Unknown Room Number OP Number Date of 1940 Referring Physician Delmy Aldrich Age 77 year(s) Metal Template Maker Monty Johnson Interpreting Noam Waite, Physician Fellow [...] normal . No LA appendage Thrombus visualized. Nhdy-um-xiiiseqd aortic regurgitation. Right ventricular systolic pressure is [...] Valve Aortic valve is normal in appearance. Nwny-ne-iqhopqyd aortic regurgitation. Mitral Valve Mitral valve is normal in appearance. Mild mitral regurgitation. Tricuspid Qtae-mv-bvfihgra tricuspid regurgitation. Right ventricular Valve systolic pressure [...] cm Performing Organization Address City/State/Zipcode Phone Number [facility] * CT heart without & with gating & 3d (12/11/2017 7:50 AM CDT) Specimen Narrative Performed At Addendum Begins [facility] REPORT STATUS:A Addendum: I agree with the previously described non vascular findings. Signed: Shamar Walters MD Report Verified Date/Time:12/11/2017 14:59:15 Reading Location: [place] [id number] Angio Body Reading Room Addendum Ends FINAL [...] by the interpreting physician using an independent (BIlprospekt) workstation. Please refer to the contrast sheet [...] dictated regarding the non-vascular findings by the Physics Instructor Radiologist. Signed: Delvin Sorto MD Report Verified Date/Time:12/11/2017 08:33:56 Reading Location: [facility] P047 Cardiology MRI Procedure Note Interface, External Ris In - 12/11/2017 3:01 PM CDT Addendum Begins REPORT STATUS:A Addendum: I agree with the previously described non vascular findings. Signed: Shamar Walters MD Report Verified Date/Time: 12/11/2017 14:59:15 Reading Location: [facility] P048 Angio Body Reading Room Addendum [...] by the interpreting physician using an independent (BIlprospekt) workstation. Please refer to the contrast sheet [...] dictated regarding the non-vascular findings by the Physics Instructor Radiologist. Signed: Delvin Sorto MD Report Verified Date/Time: 12/11/2017 08:33:56 Reading Location: [place] [address] Cardiology MRI Performing Organization Address City/[facility] Phone Number [facility] * POC-Creatinine (12/11/2017 7:31 AM CDT) POC-Creatinine 1.2Comment: TESTED AT [facility] 0.6 - 1.3 mg/dL [address] POC-EGFR 59 mL/min/1.73M2 [facility] Specimen Blood Performing Organization Address [facility]/Zipcode Phone Number [place] [phone] [facility] * PT/aPTT (12/11/2017 6:49 AM CDT) Protime 23.8 (H) 11.7 - 14.7 seconds [facility] INR 2.1 <=5.9 [facility] PTT 56.1 (H) 22.5 - 36.0 seconds [facility] Specimen Blood Narrative Performed At RECOMMENDED COUMADIN/WARFARIN INR THERAPY RANGES [facility] STANDARD DOSE: 2.0 - 3.0 Includes: PROPHYLAXIS for venous thrombosis, [facility] systemic embolization; TREATMENT for venous thrombosis and/or pulmonary embolus. HIGH RISK: Target INR is 2.5-3.5 for patients with mechanical heart valves. Performing Organization Address City/State/Zipcode Phone Number [facility] [address] [place] [address] [facility] after 09/25/2017 Insurance Payer Benefit Subscriber ID Type Phone Address Plan / Group MEDICARE MEDICARE A xxxxxxxxxx Medicare B BLUE CROSS/BLUE SHIELD BCBS xxxxxxxxxxxx PPO [phone] [address] [place] [address] [place] Advance Directives For more information, please contact: [address] [phone] Date Inactivated Comments Code Status Date Activated [...]
--- OUTSIDE RECORDS SUMMARY | 2018-09-26 10:03 | XMS REPORT | Clinical Summary ---
Author Author [facility] Organization [facility] Address Unknown Phone Unavailable Care Team Providers Care Wheel Braider Name Role Phone Kyle Dodge MD PCP Allergies Comments Active Allergy Reactions Severity Noted Date hallucinations Codeine 03/26/2018 Sore joints Bgjzrlp-Mxb-Lwa Reductase Other (See Low 02/10/2016 Inhibitors Comments) [...] 0 capsule by mouth daily. Active omega 8-cqf-xlu-fish oil Take 1 0 (FISH OIL) 100-160-1,000 [...] urinary obstruction (Primary Dx); Urinary retention 04/14/2018 [facility] General Internal Medicine - Encounter 04/15/2018 Petros Corado MD 04/14/2018 Orders Only Urology N/A 04/14/2018 Intake Access Eliel Barrera MD Goldfarb, Richard A., MD Urinary retention (Primary Dx); Chronic atrial fibrillation (HCC) 04/11/2018 [facility] General Internal Medicine - Encounter 04/13/2018 Areli Cruz APRN 04/03/2018 Anesthesia Urology Event Rene Riley MD CYSTOSCOPY, WITH TURP 04/03/2018 Surgery Urology Rene Riley MD Enlarged prostate with urinary obstruction 04/03/2018 [facility] General Internal Medicine - Encounter 04/04/2018 Rene Riley MD Preop examination (Primary Dx) 03/27/2018 Pre-Admit Pre-Admission Testing Testing Appointment after 09/25/2017 Social History Date Tobacco Use [...] Taken Vital Sign Reading 04/15/2018 6:28 PM [facility] Blood Pressure 158/95 04/15/2018 6:28 PM [facility] Pulse 84 04/15/2018 3:46 PM [facility] Temperature 36.6 C (97.9 F) 04/15/2018 3:46 PM [facility] Respiratory Rate 18 04/15/2018 3:46 PM [facility] Oxygen Saturation 92% - Inhaled Oxygen - Concentration 04/03/2018 7:32 AM [facility] Weight 96.6 kg (213 lb) 04/11/2018 9:50 AM [facility] Height 190.5 cm (6' 3") 03/27/2018 2:27 PM [facility] Body Mass Index 26.62 Plan of Treatment Health Maintenance Due Date Last Done Comments SHINGLES VACCINES (#1) 1992 65+ PNEUMOCOCCAL VACCINE 2007 05/08/2015 (2 of 2 - PPSV23) PNEUMOCOCCAL 2007 POLYSACCHARIDE VACCINE AGE 65 AND OVER INFLUENZA VACCINE 12/06/2018 Procedures Comments Procedure Name Priority Date/Time Associated Diagnosis HEMOGLOBIN & HEMATOCRIT STAT 04/15/2018 5:30 PM [facility] POC GLUCOSE Routine 04/15/2018 12:40 PM [facility] POC GLUCOSE Routine 04/15/2018 7:29 AM [facility] CBC HEMOGRAM Routine 04/15/2018 5:00 AM [facility] ESTIMATED GFR Routine 04/15/2018 4:00 AM [facility] BASIC METABOLIC PANEL Routine 04/15/2018 4:00 AM [facility] POC GLUCOSE Routine 04/14/2018 9:00 PM [facility] POC GLUCOSE Routine 04/14/2018 4:58 PM [facility] POC GLUCOSE Routine 04/14/2018 1:07 PM [facility] PREPARE RBC Timed 04/14/2018 8:55 AM [facility] TYPE AND SCREEN Routine 04/14/2018 8:55 AM [facility] POC GLUCOSE Routine 04/14/2018 8:48 AM [facility] HC COMPLETE BLD COUNT Routine 04/14/2018 W/AUTO DIFF 5:15 AM [facility] ESTIMATED GFR Routine 04/14/2018 4:59 AM [facility] BASIC METABOLIC PANEL Routine 04/14/2018 4:59 AM [facility] POC GLUCOSE Routine 04/13/2018 11:26 AM [facility] ESTIMATED GFR Routine 04/13/2018 4:00 AM [facility] BASIC METABOLIC PANEL Routine 04/13/2018 4:00 AM [facility] HC COMPLETE BLD COUNT Routine 04/13/2018 W/AUTO DIFF 4:00 AM [facility] HEMOGLOBIN & HEMATOCRIT STAT 04/12/2018 4:45 PM [facility] HC COMPLETE BLD COUNT Routine 04/12/2018 W/AUTO DIFF 5:00 AM [facility] ESTIMATED GFR Routine 04/12/2018 4:00 AM [facility] BASIC METABOLIC PANEL Routine 04/12/2018 4:00 AM [facility] PREPARE RBC Timed 04/11/2018 12:30 PM [facility] ESTIMATED GFR STAT 04/11/2018 12:30 PM [facility] PARTIAL THROMBOPLASTIN STAT 04/11/2018 TIME (PTT) 12:30 PM [facility] PROTHROMBIN TIME WITH INR STAT 04/11/2018 12:30 PM [facility] COMPREHENSIVE METABOLIC STAT 04/11/2018 PANEL 12:30 PM [facility] TYPE AND SCREEN Routine 04/11/2018 12:30 PM [facility] HC COMPLETE BLD COUNT STAT 04/11/2018 W/AUTO DIFF 12:30 PM [facility] ECG 12-LEAD STAT 04/11/2018 9:53 AM [facility] POC GLUCOSE Routine 04/04/2018 11:37 AM [facility] POC GLUCOSE Routine 04/04/2018 7:27 AM [facility] POC GLUCOSE Routine 04/03/2018 9:39 PM [facility] POC GLUCOSE Routine 04/03/2018 6:48 PM [facility] POC GLUCOSE Routine 04/03/2018 5:06 PM [facility] POC GLUCOSE Routine 04/03/2018 2:12 PM [facility] SURGICAL PATHOLOGY Routine 04/03/2018 REQUEST 11:15 AM [facility] POC GLUCOSE Routine 04/03/2018 10:49 AM [facility] SC AN ELECTIVE Routine 04/03/2018 SUPRAGLOTTIC AIRWAY 9:19 AM [facility] Procedure Note - Kristin Kong CRNA - 04/03/2018 9:19 AM [facility] ANESTHESIA INTUBATION Date/Time: 04/03/2018 9:19 AM Performed [...] TURP 04/03/2018 Enlarged prostate with 9:00 AM [facility] urinary obstruction Case Notes REQ 0900 START, POSSIBLE EXTENDED RECOVERY Special Needs REQ 0900 START, POSSIBLE EXTENDED RECOVERY POC GLUCOSE Routine 04/03/2018 7:09 AM [facility] CBC HEMOGRAM Routine 03/27/2018 Preop examination 3:30 PM [facility] ECG PRE/POST OP Routine 03/27/2018 Preop examination 2:45 PM [facility] ESTIMATED GFR Routine 03/27/2018 2:37 PM [facility] BASIC METABOLIC PANEL Routine 03/27/2018 Preop examination 2:37 PM [facility] HEMOGLOBIN A1C Routine 03/27/2018 Preop examination 2:37 PM [facility] TYPE AND SCREEN Routine 03/27/2018 Preop examination 2:37 PM [facility] URINALYSIS SCREEN AND Routine 03/27/2018 Preop examination MICROSCOPY, WITH REFLEX 2:37 PM [facility] TO CULTURE GRAM STAIN Routine 03/27/2018 2:37 PM [facility] URINE CULTURE Routine 03/27/2018 2:37 PM [facility] after 09/25/2017 Results * Hemoglobin & hematocrit (04/15/2018 5:30 PM [facility]) Only the most recent of 2 results within the time period is included. HGB 10.6 (L) 14.0 - 18.0 g/dL [facility] HCT 33.2 (L) 41.0 - 51.0 % [facility] Specimen Blood Performing Organization Address City/State/Zipcode Phone Number [facility] DEPARTMENT OF [address] [place] [address] PATHOLOGY AND GENOMIC MEDICINE [address] [address] [facility] * POC glucose (04/15/2018 12:40 PM [facility]) Only the most recent of 15 results within the time period is included. [facility] POC glucose 138 (H) 65 - 99 mg/dL [place] Comment: [facility] Notified RN HOSPITAL Meter ID: [id number] Geneticist: Sheriff Chuy Nieto Specimen Performing Organization Address City/[facility]/Zipcode Phone Number [facility] DEPARTMENT OF [address] [place] [address] PATHOLOGY AND GENOMIC MEDICINE [address] * CBC hemogram (04/15/2018 5:00 AM [facility]) Only the most recent of 2 results within the time period is included. [facility] WBC 4.31 (L) 4.50 - 11.00 k/uL [facility] RBC 2.69 (L) 4.40 - 6.00 m/uL [facility] HGB 7.2 (L) 14.0 - 18.0 g/dL [facility] HCT 22.9 (L) 41.0 - 51.0 % [facility] MCV 85.1 82.0 - 100.[address] [facility] MCH 26.8 (L) 27.0 - 34.[address] [facility] MCHC 31.4 31.0 - 37.0 g/dL [facility] RDW - SD 46.1 37.0 - 55.[address] [facility] MPV 9.9 8.8 - 13.[address] [facility] Platelet count 271 150 - 400 k/uL [facility] Nucleated RBC 0.00 /[address] [facility] Specimen Blood Performing Organization Address City/[facility]/Zipcode Phone Number [facility] DEPARTMENT OF [address] [place] [address] PATHOLOGY AND GENOMIC MEDICINE [address] * Estimated GFR (04/15/2018 4:00 AM [facility]) Only the most recent of 6 results within the time period is included. [facility] Estimated GFR 79 mL/min/1.73 m2 [place] Comment: [facility] rpretation G1 >=90 Normal or high G2 60-89Mildly decreased [id number] Mildly to moderately decreased R0u23-78 Moderately to severely decreased G4 15-29Severely decreased G5 <15Kidney failure The eGFR was calculated using the Chronic Kidney Disease Epidemiology Collaboration (CKD-EPI) equation. Interpretation is based on recommendations of the National Kidney Foundation-Kidney Disease Outcomes Quality Initiative (NKF-KDOQI) published in 2014. Specimen Plasma specimen Performing Organization Address City/State/Zipcode Phone Number [facility] DEPARTMENT OF [address] [place] [address] PATHOLOGY AND GENOMIC MEDICINE [address] * Basic metabolic panel (04/15/2018 4:00 AM [facility]) Only the most recent of 5 results within the time period is included. [facility] Sodium 142 135 - 148 mEq/L [facility] Potassium 3.9 3.5 - 5.0 mEq/L [facility] Chloride 105 98 - 112 mEq/L [facility] CO2 25 24 - 31 mEq/L [facility] Anion gap 12@ANIO 7 - 15 mEq/L [facility] BUN 12 8 - 23 mg/dL [facility] Creatinine 0.93 0.70 - 1.20 mg/dL [facility] Glucose 102 (H) 65 - 99 mg/dL [facility] Calcium 8.5 (L) 8.8 - 10.2 mg/dL [facility] Specimen Plasma specimen Performing Organization Address City/[facility]/Zipcode Phone Number [facility] DEPARTMENT OF [address] [place] [address] PATHOLOGY AND GENOMIC MEDICINE [address] * Prepare RBC, 2 Units (04/14/2018 8:55 AM [facility]) Only the most recent of 2 results within the time period is included. Product name Red Blood Cells -1, Leukored [facility] Unit number [id number] [facility] Product code [id number] [facility] Dispense status Transfused [facility] Blood [id number] [place] expiration date [facility] Blood type code [address] [facility] Blood type O POSITIVE [facility] Product name Red Blood Cells -[address], [address] [facility] Unit number [id number] [facility] Product [facility] [id number] [facility] Dispense status Transfused [facility] Blood [id number] [place] expiration date [facility] Blood type [facility] [address] [facility] Blood type O POSITIVE [facility] Specimen Performing Organization Address City/State/Zipcode Phone Number [facility] DEPARTMENT OF [address] [place] [address] PATHOLOGY AND GENOMIC MEDICINE [address] * Type and screen (04/14/2018 8:55 AM [facility]) Only the most recent of 3 results within the time period is included. ABO grouping O [facility] Rh type POS [facility] Antibody screen NEG [place] (gel) [facility] Specimen Blood Performing Organization Address City/[facility] Centercode Phone Number [facility] DEPARTMENT OF [address] [place] [address] PATHOLOGY AND GENOMIC MEDICINE [address] * CBC with platelet and differential (04/14/2018 5:15 AM [facility]) Only the most recent of 4 results within the time period is included. WBC 5.45 4.50 - 11.00 k/uL [facility] RBC 2.69 (L) 4.40 - 6.00 m/uL [facility] HGB 7.3 (L) 14.0 - 18.0 g/dL [facility] HCT 23.2 (L) 41.0 - 51.0 % [facility] MCV 86.2 82.0 - 100.[address] [facility] MCH 27.1 27.0 - 34.[address] [facility] MCHC 31.5 31.0 - 37.0 g/dL [facility] RDW - SD 47.5 37.0 - 55.[address] [facility] MPV 9.4 8.8 - 13.[address] [facility] Platelet count 213 150 - 400 k/uL [facility] Nucleated RBC 0.00 /[address] [facility] Neutrophils 75.2 (H) 39.0 - 69.0 % [facility] Lymphocytes 14.9 (L) 25.0 - 45.0 % [facility] Monocytes 8.3 0.0 - 10.0 % [facility] Eosinophils 0.4 0.0 - 5.0 % [facility] Basophils 0.6 0.0 - 1.0 % [facility] Immature 0.6Comment: "Immature 0.0 - 1.0 % [place] granulocytes granulocytes" (promyelocytes, [place] myelocytes, metamyelocytes) [facility] Specimen Blood Performing Organization Address City/[facility]/Zipcode Phone Number [facility] [place] [address] PATHOLOGY AND GENOMIC MEDICINE [address] * Partial thromboplastin time, activated (04/11/2018 12:30 PM [facility]) [facility] PTT 39.4 (H) 23.0 - 36.0 sec [place] Comment: [place] PTT therapeutic range for [facility] unfractionated heparin is 61.0-112.0 seconds which corresponds to Anti-Xa 0.3-0.7 U/ml. Specimen Blood Performing Organization Address City/[facility] Centercode Phone Number [facility] [place] [address] PATHOLOGY AND GENOMIC MEDICINE [address] * Prothrombin time with INR (04/11/2018 12:30 PM [facility]PPORT [facility]) [facility] Prothrombin 19.8 (H) 11.5 - 14.5 sec [facility] INR 1.7 [place] Comment: [place] The International Normalized HOSPITAL Ratio (INR) is a therapeutic monitoring tool for patients who are stable on oral anticoagulant therapy. An INR of 2.0-3.0 is suggested for deep vein thrombosis/pulmonary embolism. Specimen Blood Performing Organization Address City/[facility] Centercode Phone Number [facility] [place] [address] PATHOLOGY AND GENOMIC MEDICINE [address] * Comprehensive metabolic panel (04/11/2018 12:30 PM SUPPORT [facility]) [facility] Sodium 141 135 - 148 mEq/L [facility] Potassium 4.4 3.5 - 5.0 mEq/L [facility] Chloride 102 98 - 112 mEq/L [facility] CO2 25 24 - 31 mEq/L [facility] Anion gap 14@ANIO 7 - 15 mEq/L [facility] BUN 12 8 - 23 mg/dL [facility] Creatinine 1.02 0.70 - 1.20 mg/dL [facility] Glucose 123 (H) 65 - 99 mg/dL [facility] Calcium 8.7 (L) 8.8 - 10.2 mg/dL [facility] Protein 5.9 (L) 6.3 - 8.3 g/dL [place] Comment: [facility] 4.6-7.0 g/dL 1 week 4.4-7.6 g/dL 7 months-1year 5.1-7.3 g/dL 1-2 years5.6-7 .5 g/dL >3 years6.0-8 .0 g/dL 18-150 6.3-8.3 g/dL Albumin 3.4 (L) 3.5 - 5.0 g/dL [facility] A/G ratio 1.4 0.7 - 3.[address] [facility] Alkaline 80 40 - 129 U/L [place] phosphatase [facility] AST 32 10 - 50 U/L [facility] ALT 52 (H) 5 - 50 U/L [facility] Total bilirubin 0.8 0.0 - 1.2 mg/dL [facility] Specimen Plasma specimen Performing Organization Address City/State/[facility] Centercode Phone Number [facility] DEPARTMENT OF [address] [place] [address] PATHOLOGY AND GENOMIC MEDICINE [address] * ECG 12 lead (04/11/2018 9:53 AM [facility]) Ventricular 144 [facility] M[facility] rate Atrial rate 141 [facility] QRSD interval 76 [facility] QT interval 264 [facility] QTC interval 408 [facility] QRS axis 1 -19 [facility] T wave axis 89 [facility] EKG impression Atrial fibrillation with rapid [facility] ventricular response-Nonspecific ST and T wave abnormality-Abnormal ECG-In automated comparison with ECG of 27-MAR-2018 14:45,-Vent. rate has increased BY50 BPM- Specimen Narrative Performed At Performing Organization Address City/State/[place] [address] * Surgical pathology request (04/03/2018 11:15 AM SUPPORT [facility]ER) [facility] DEPARTMENT OF PATHOLOGY AND GENOMIC MEDICINE Surgical See link below for PDF Lab [facility] DEPARTMENT pathology Report OF PATHOLOGY report AND GENOMIC MEDICINE Result status This is Final Report for [facility] DEPARTMENT [id number] OF PATHOLOGY AND GENOMIC MEDICINE Specimen Performing Organization Address City/[facility]/Zipcode Phone Number [facility] DEPARTMENT OF [address] [place] [address] PATHOLOGY AND GENOMIC MEDICINE * ECG Pre/Post Op (03/27/2018 2:45 PM SUPPORT [facility]) Ventricular 94 [facility] MUSE rate Atrial rate 159 [facility] M[facility] QRSD interval 88 [facility] QT interval 342 [facility] QTC interval 427 [facility] M[facility] QRS axis 1 3 [facility] MUSE T wave axis 77 [facility] EKG impression Atrial [facility] M[facility] fibrillation-Nonspecific ST and T wave abnormality , probably digitalis effect-Abnormal ECG-No previous ECGs available- Specimen Narrative Performed At Performing Organization Address [facility] Centercode Phone Number [facility] [address] [place] [address] * Urinalysis screen and microscopy, with reflex to culture (03/27/2018 2:37 PM SUPPORT [facility]CH[facility]ISER) Specimen site Clean catch [facility] Color, UA Red [facility] Appearance, UA Cloudy [facility] Specific 1.017 1.001 - 1.035 [place] [facility] pH, UA 5.0 5.0 - 8.[address] [facility] Protein, UA 2+ (A) Negative [facility] Glucose, UA Negative Negative [facility] Ketones, UA Negative Negative [facility] Bilirubin, UA Negative Negative [facility] Blood, UA Large (A) Negative [facility] Nitrite, UA Negative Negative [facility] Urobilinogen, <2.0 <2.0 [facility] Leukocyte Moderate (A) Negative [place] [facility] WBC, UA 96 (H) 0 - 1 /HPF [facility] RBC, UA >180 (H) 0 - 5 /HPF [facility] Bacteria, UA Few None seen [facility] Yeast, UA None seen [facility] Yeast with None seen [place] pseud[facility]BA[facility] Hyaline casts, 12 /LPF [facility] Specimen Urine Performing Organization Address City/[facility] Centercode Phone Number [facility] DEPARTMENT OF [address] [place] [address] PATHOLOGY AND GENOMIC MEDICINE [address] * Gram stain (03/27/2018 2:37 PM SUPPORT MERCHANDISER) Gram stain Many Gram positive rods [place] result Many Gram positive cocci in [facility] Few WBC's Comment: Specimen Information Specimen Source: Urine Specimen Site: Clean catch Specimen Urine Performing Organization Address [facility] Centercode Phone Number [facility] [place] [address] PATHOLOGY AND [facility] MEDICINE [address] * Urine culture (03/27/2018 2:37 PM SUPPORT [facility]CHANDISER) [facility] Urine culture Enterococcus faecalis [facility] isolate >10-5 cfu/ml [facility] characteristics of this assay on this isolate were validated by the Microbiology Laboratory at .This source has not been approved by the [...] mcg/mL: Susceptible Enterococcus faecalis Performing Organization Address [facility] Centercode Phone Number [facility] DEPARTMENT OF [address] [place] [address] PATHOLOGY AND [facility] MEDICINE [address] * Hemoglobin A1c (03/27/2018 2:37 PM SUPPORT [facility]CH[facility]ISER) Hemoglobin A1C 6.3 (H) 4.0 - 5.6 % [place] Comment: [place] HbA1c cutoffs for diagnosing HOSPITAL diabetes: 4.0% - 5.6%=normal 5.7% - 6.4%=increased risk for diabetes (prediabetes) >=6.5%=diabetes Goals for glycemic control (ADA 2016) < 7.0%Target for non adults with diabetes. More or less stringent targets may be appropriate for individual patients. <7.5% Target for Children and adolescents with type 1 diabetes. Specimen Blood Performing Organization Address City/State/Zipcode Phone Number [facility] DEPARTMENT OF [address] [place] [address] PATHOLOGY AND GENOMIC MEDICINE [facility] [address] [place], [place] [id number] HOSPITAL after 09/25/2017 Insurance Type Payer Benefit Subscriber ID Effective Phone Address Plan / Dates Group Medicare MEDICARE MEDICARE xxxxxxxxxxx 2007- [place], PART A AND Present [place] B Indemnity BCBS BCBS xxxxxxxxxxxx 2007- PAR/TRAD Present PLAN Advance Directives Patient has advance care planning documents on file. For more information, bryce smith contact: [facility] [address] [place] [phone]
[2018-09-26 12:15] VITALS: BP 121/80
== END | disposition home or self-care (01) ==
LOC: OR 10:00
PROVIDERS: ATTEND Internal Medicine Gastroenterology
DX: R10.30 Lower abdominal pain, unspecified (principal); D12.2 Benign neoplasm of ascending colon; D12.3 Benign neoplasm of transverse colon; D12.4 Benign neoplasm of descending colon; K57.30 Diverticulosis of large intestine without perforation or abscess without bleeding; K64.8 Other hemorrhoids; K44.9 Diaphragmatic hernia without obstruction or gangrene; E66.3 Overweight; Z71.3 Dietary counseling and surveillance; E11.9 Type 2 diabetes mellitus without complications; I48.91 Unspecified atrial fibrillation; I50.9 Heart failure, unspecified; I25.2 Old myocardial infarction; D64.9 Anemia, unspecified; F41.9 Anxiety disorder, unspecified; Z88.6 Allergy status to analgesic agent; Z01.810 Encounter for preprocedural cardiovascular examination; Z01.812 Encounter for preprocedural laboratory examination; Z79.02 Long term (current) use of antithrombotics/antiplatelets; Z68.26 Body mass index [BMI] 26.0-26.9, adult; Z90.49 Acquired absence of other specified parts of digestive tract; Z87.891 Personal history of nicotine dependence; Z95.0 Presence of cardiac pacemaker
CPT/HCPCS: 36415 ×2; 45380; 45385; 82948; 85025; 88305; 93005; J2704; J7070; 45378

== ENCOUNTER → 2019-02-04 | Outpatient (CLI) | payer MEDICARE, BC ==
[~2019-02-04] MED LIST changes: -DEXTROSE 5% 250ML 250 ML IV ONE; -PROPOFOL IV EMULSION 10 MG/ML 20 ML VIAL ONE
--- NOTE | 2019-02-04 14:15 | Diagnostic Imaging Report ---
EXAMINATION: CHEST 2 VIEWS INDICATION: Shortness of breath COMPARISON: Chest radiograph 07/17/2018 FINDINGS: LINES/TUBES:Left chest pacer with leads unchanged. LUNGS:The lungs are well-inflated. No focal consolidation or pulmonary edema. PLEURA:No pleural effusion or pneumothorax. MEDIASTINUM:Cardiomediastinal silhouette is stably enlarged. Atherosclerotic calcifications of the thoracic aorta. BONES/SOFT TISSUES:No acute osseous injury. Mild degenerative changes of the visualized spine. Scattered metallic shrapnel in the soft tissues of the anterior chest wall. ABDOMEN:No free air under the diaphragm. IMPRESSION: No focal pneumonia or pulmonary edema. Stable cardiomegaly. Signed by: Joon Rock MD on 02/04/2019 2:12 PM
== END ==
LOC: RAD 13:37
PROVIDERS: ATTEND Internal Medicine Cardiovascular Disease
DX: I25.10 Atherosclerotic heart disease of native coronary artery without angina pectoris (principal); R06.02 Shortness of breath
CPT/HCPCS: 71046

== ENCOUNTER → 2019-11-14 | Outpatient (CLI) | payer MEDICARE, BC ==
[~2019-11-14] MED LIST changes: +DIATRIZOATE MEGL/DIATRIZOA SOD 30 ML BTL PO ONE; +IOPAMIDOL 370 MG/ML 200 ML INFUS..BTL INJ ONE; +SODIUM CHLORIDE 0.9% 250ML 250 ML ONE; +SODIUM CHLORIDE 0.9% 500ML 500 ML ONE; +SODIUM CHLORIDE 0.9% 50ML 50 ML ONE
[2019-11-14 08:19] LABS: CREATININE, SERUM 1.35 mg/dL (0.72-1.25)
--- NOTE | 2019-11-14 09:59 | Diagnostic Imaging Report ---
CT of the abdomen and pelvis. Comparison: None Clinical History: Abdominal pain Technique: Helical CT scan of the abdomen and pelvis was performed. Intravenous contrast administration was utilized. Oral contrast administration was not utilized. Coronal and sagittal reconstructions were generated from the raw data. Multiple images were submitted for interpretation. This exam was performed according to our departmental dose-optimization program which includes automated exposure control, adjustment of the mA and/or kV according to patient size Discussion: Inferior chest: Right pleural effusion.2 right posterior aspect superior segment of the lower lobe 6 mm smooth nodule with no calcification in the peripheral location. Likely an old granuloma. Cardiomegaly. Coronary artery calcification. Coronary artery stent in the LAD location. Dual-chamber pacemaker wires in the cardiac chambers on the right side. No pericardial effusion. Liver: No stigmata of cirrhosis are a focal mass. Reflux of contrast into the hepatic veins suggesting elevated right-sided pressures for example with right heart failure Spleen: Unremarkable Pancreas: Unremarkable. Biliary tree and gallbladder: Status post cholecystectomy. No biliary dilatation. Adrenal glands: Unremarkable Kidneys and ureters: Small right exophytic renal cyst measuring approximately 1.5 x 1.1 cm with fluid density. No calculi are other renal masses. No obstruction. Vasculature: Minimal atherosclerotic calcification. Lymph nodes: No lymphadenopathy Bowel: The descending colon is located more anteriorly suggesting the presence of a possible left colonic mesentery. No significant abnormality otherwise. Specifically, no diverticulosis or diverticulitis. No abnormal bowel distention. Pelvis: Urinary bladder is unremarkable. Prostate shows median lobe hypertrophy with impression on the bladder. Seminal vesicles unremarkable. Pelvic wall unremarkable. Peritoneum: Unremarkable Perineal compartments: unremarkable. Fluid: No free fluid Bones: Unremarkable Body wall: Small umbilical hernia. Left inguinal hernia. Bilateral hydroceles. Presence of shrapnel in the anterior abdominal and lower chest wall. Impression: 1. Right heart failure 2. Prostatomegaly with likely bladder outlet obstruction 3. Left inguinal hernia and bilateral hydroceles 4. Right pleural effusion. This could be a reflection of the right heart failure. Clinical correlation. 5. A small right lung nodule, likely granuloma. Full CT of the chest may be performed for further evaluation of the lungs. Signed by: Eugene Tapia MD on 11/14/2019 9:55 AM
--- NOTE | 2019-11-14 16:06 | Diagnostic Imaging Report ---
IV fluid given for hydration to this patient because of her GFR of 57 following an intravenous contrast enhanced CT scan. Signed by: Eugene Tapia MD on 11/14/2019 4:03 PM
== END ==
LOC: CT 07:30
PROVIDERS: ATTEND Internal Medicine Gastroenterology
DX: R10.13 Epigastric pain (principal); R10.32 Left lower quadrant pain; R10.31 Right lower quadrant pain; K57.30 Diverticulosis of large intestine without perforation or abscess without bleeding; E11.9 Type 2 diabetes mellitus without complications; Z71.3 Dietary counseling and surveillance; E66.3 Overweight; Z86.010 Personal history of colon polyps; Z87.891 Personal history of nicotine dependence
CPT/HCPCS: 36415; 74177; 82565; 84520; 96360; J7040; J7050; Q9967

== ENCOUNTER 2020-01-12 10:43 | Inpatient (IN) | payer MEDICARE, BC, OTHER ==
[~2020-01-12] VITALS: Ht 190.5 cm; Wt 106.6 kg
[~2020-01-12 10:43] MED LIST changes: -DIATRIZOATE MEGL/DIATRIZOA SOD 30 ML BTL PO ONE; -IOPAMIDOL 370 MG/ML 200 ML INFUS..BTL INJ ONE; -SODIUM CHLORIDE 0.9% 250ML 250 ML ONE; -SODIUM CHLORIDE 0.9% 500ML 500 ML ONE; -SODIUM CHLORIDE 0.9% 50ML 50 ML ONE
[2020-01-12] MEDS ORDERED: SODIUM CHLORIDE 0.9% 1000ML 1,000 ML IV STA (10:59)
[2020-01-12] MEDS ORDERED: ONDANSETRON HCL INJ 2MG/ML 2ML 2 MG/ML VIAL IV NR ×2 (11:00→14:02)
[2020-01-12] MEDS ORDERED: PANTOPRAZOLE 40 MG 10ML VIAL IV NR (11:00)
[2020-01-12] MEDS ORDERED: DICYCLOMINE HCL 20 MG/2 ML VIAL IM ONE (11:00)
--- NOTE | 2020-01-12 11:03 | NUR ---
LAST ORAL INTAKE ONE CUP OF COFFEE THIS AND ATE DINNER LAST NIGHT WITH NO N/V/D/F/
--- OUTSIDE RECORDS SUMMARY | 2020-01-12 11:04 | XMS REPORT | Clinical Summary ---
Author Author [facility] Address Unknown Phone Unavailable Care Team Providers Care Associate Loan Officer Name Role Phone Kyle Dodge MD PCP Allergies Comments Active Allergy Reactions Severity Noted Date hallucinations Codeine 03/26/2018 Sore joints Kstwkmu-Zrp-Iay Reductase Other (See Low 09/2015 Inhibitors Comments) Medications End Date Status Medication [...] 0 capsule by mouth daily. Active omega 1-elk-sty-fish oil Take 1 0 (FISH OIL) 100-160-1,000 [...] (six) hours as needed for moderate pain. Active Problems Problem Noted Date Urinary retention 04/11/2018 Enlarged prostate with urinary obstruction 8 Social History Date Tobacco Use Types Packs/Day Years Used Never Smoker Smokeless Tobacco: Never Used Drinks/Week oz/Week Comments Alcohol Use No Alcohol Habits Answer Date Recorded How often do you have a drink containing alcohol? Never 03/26/2018 How many drinks containing alcohol do you have on No t asked a typical day when you are drinking? How often do you have six or more drinks on one Not asked occasion? Sex Assigned at Date Recorded Not on file Industry Job Start Date Occupation Not on file Not on file Not on file Travel End Travel History Travel Start No recent travel history available. Last Filed Vital Signs Not on file Plan of Treatment Health Maintenance Due Date Last Done Comments DIABETIC RETINAL EYE EXAM 1942 DIABETIC FOOT EXAM 1952 URINE MICROALBUMIN 1952 SHINGLES VACCINES (#1) 1992 65+ PNEUMOCOCCAL VACCINE 2007 05/08/2015 (2 of 2 - PPSV23) INFLUENZA VACCINE 02/06/2020 Results Not on fileafter 01/11/2019 Insurance Type Payer Benefit Subscriber ID Effective Phone Address Plan / Dates Group Medicare MEDICARE MEDICARE xxxxxxxxxxx 2007- [place], PART A AND Present [place] B Indemnity BCBS BCBS xxxxxxxxxxxx 2007- PAR/TRAD Present PLAN Advance Directives For more information, please contact: [phone] Patient Low 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
--- OUTSIDE RECORDS SUMMARY | 2020-01-12 11:04 | XMS REPORT | Clinical Summary ---
Author Author [facility] Address Unknown Phone Unavailable Care Team Providers Care Corporate Health Consultant Name Role Phone Kyle Dodge MD PCP [phone] Allergies Comments Active Allergy Reactions Severity Noted Date HALLUCINATIONS Codeine 02/15/2016 Sore joints Prwtdmy-Htj-Njv Reductase Other (See Low 09/2015 Inhibitors Comments) [...] (GLUCOPHAGE) Take 1 tablet 1 tablet 0 1 500 MG tablet (500 mg 6 total) [...] Active metoprolol (LOPRESSOR) Take 50 mg 0 01 100 MG tablet twice per 8 day. Active Problems Problem Noted Date A-fib 08/24/2016 CAD (coronary artery disease), [place] coronary artery 02/10/2016 DM (diabetes mellitus) type II controlled, neurologic al manifestation 02/10/2016 BPH (benign prostatic hyperplasia) 02/10/2016 HTN (hypertension) 02/10/2016 PAF (paroxysmal atrial fibrillation) 02/10/2016 Hyperlipemia 02/10/2016 Social History Date Tobacco Use Types Packs/Day [...] Plan of Treatment Not on file Results Not on fileafter 01/11/2019 Insurance Payer Benefit Subscriber ID Type Phone Address Plan / Group MEDICARE MEDICARE A xxxxxxxxxx Medicare B BLUE CROSS/BLUE SHIELD BCBS xxxxxxxxxxxx PPO [address] [place] [address] [place] [phone] Advance Directives For more information, please contact: [facility] [address] [place] [address] Date Inactivated Comments Code Status Date Activated [...]
--- OUTSIDE RECORDS SUMMARY | 2020-01-12 11:05 | XMS REPORT | Continuity of Care Document ---
Author Author [facility] t Organization [facility] Address [address] [place] [address] Phone Unavailable Care Team Providers Care Shank Sander Name Role Phone Quentin CABELLO MD PCP IVAN COLE Attphys Unavailable RAJINDER GROSS Attphys Unavailable YENI STEPHENS Attphys Unavailable RUBI STEWART Attphys Unavailable Randy VOSS Attphys Unavailable Quentin CABELLO Attphys Unavailable Daniel GATSELUM Attphys Unavailable Rafaela RAMIRES Attphys Unavailable ALFONSO LCEMENTS Attphys Unavailable RUBI STEWART Admphys Unavailable Quentin CABELLO Admphys Unavailable ALFONSO CLEMENTS Admphys Unavailable Payers Payer Name Policy Type Policy Number Effective Date Expiration Date Quentin pickard Medicare A & B [id number] 2007 00:00:00 Rafaela ZHANG [facility] [id number] 2007 00:00:00 [facility] Problems Condition Name Condition Details Condition Category Status Onset Date Resolution Date Last Treatment Date Treating Clinician Comments Source Urinary retention Urinary retention Disease Active 2018-04-11 00:00:00 [facility] Enlarged prostate with urinary obstruction Enlarged pr ostate with urinary obstruction Disease Active 2018-04-03 00:00:00 [facility] Leal A-fib A-fib Disease Active 2016-08-24 00:00:00 [facility] CAD (coronary artery disease), [place] coronary artery CAD (coronary artery disease), [place] coronary artery Disease Active 2016-02-10 00:00:00 [facility] DM (diabetes mellitus) type II controlled, 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, neurological manifestation Disease Active 2016-02-10 00:00:00 [facility] BPH (benign prostatic hyperplasia) BPH (benign prostatic hyperpl jocelyn) Disease Active 2016-02-10 00:00:00 [facility] HTN (hypertension) HTN (hypertension) Disease Active 2016-02-10 00:00:0 0 [facility] PAF (paroxysmal atrial fibrillation) PAF (paroxysmal atrial fibrillation) Disease Active 2016-02-10 00:00:00 [facility] Hyperlipemia Hyperlipemia Disease Active 2016-02-10 00:00:00 [facility] Chest pain Chest pain Problem Active 2016-02-02 00:00:00 [facility] Atrial fibrillation with rapid ventricular response At [facility] fibrillation with rapid ventricular response Problem Active 2014-10-07 00:00:00 [facility] Chronic atrial fibrillation Chronic a-fib Problem Active [facility] Multiple gallstones Gallstones Problem Active [facility] Intractable abdominal pain Intractable abdominal pain Problem Active [facility] Acute retention of urine Acute urinary retention Problem Active [facility] Epistaxis Epistaxis Problem Active [facility] Anemia Anemia Problem Active [facility] Allergies, Adverse Reactions, Alerts Allergy Name Allergy Type Status Severity Reaction(s) Onset Date Inacti ve Date Treating Clinician Comments Source Codeine Allergy to Substance Active Severe HALLUCINATIONS 2018-07-17 0 0:00:00 [facility] codeine DA Active U 2018-05-16 00:00:00 [facility] codeine DA Active U 2018-04-18 00:00:00 [facility] Codeine Propensity to adverse reactions to drug Active 2018-03-26 00:00:00 hallucinations [facility] Codeine Propensity to adverse reactions Active 00:00:00 HALLUCINATIONS [facility] Gpniwwd-Xru-Htn Reductase Inhibitors Drug Intolerance Active Other (See Comments) 2016-02-10 00:00:00 Sore joints [facility] Bbvbpni-Dat-Npr Reductase Inhibitors Propensity to adverse r eactions to drug Active Other (See Comments) 2016-02-10 00:00:00 Sore joints [facility]ist CODEINE DA Active U 2008-09-27 00:00:00 [facility] No Known Contrast Allergies DA Active U 2008-09-27 00:00: 00 [facility] No Known Food Allergies DA Active U 2008-09-27 00:00:00 [facility] No Known Other Allergies DA Active U 2008-09-27 00:00:00 [facility] Social History Social Habit Start Date Stop Date Quantity Comments Source History SDOH Alcohol Std Drinks [facility] History SDOH Alcohol Binge [facility] Leal Sex Assigned At [facility] Alcohol intake 2018-04-11 00:00:00 2018-04-11 00:00:00 Current non-drinker of alcohol (finding) [facility] History SDOH Alcohol Frequency 2018-03-26 00:00:00 2018-03-26 00:00:0 0 1 [facility] Smoking Status Start Date Stop Date Source Never smoker [facility] Medications Ordered Medication Name Filled Medication Name Start Date Stop Da te Current Medication? Ordering Clinician Indication Dosage Frequency Signature (SIG) Comments Components Source Spironolactone 25 Mg Tablet Spironolactone 25 Mg Tablet 2018-05-29 00:00:00 Yes 12.5 Daily [facility] metFORMIN (GLUCOPHAGE) 500 mg tablet 2018-04-15 18:39:53 Ye s 500mg Q.5D Take 500 mg by mouth 2 (two) times a day with meals. Watson Leal finasteride (PROSCAR) 5 mg tablet 2018-04-15 18:39:53 Yes 5mg QD Take 5 mg by mouth daily. [facility] Leal silodosin (RAPAFLO) 8 mg capsule 2018-04-15 18:39:53 Yes 8mg QD Take 8 mg by mouth daily. [facility] metoprolol succinate XL (TOPROL-XL) 100 mg 24 hr tablet 2018-04-15 18:39:53 Yes 150mg Q24H Take 150 mg by mouth daily as needed (fo r elevated HR). Watson Leal lisinopril (PRINIVIL,ZESTRIL) 10 mg tablet 2018-04-15 18:39:53 Yes 10mg Q24H Take 10 mg by mouth daily as needed (SBP greater 140). Watson Leal diltiazem CD (CardIZEM CD) 180 MG 24 hr capsule 2018-04-15 18:39 :53 Yes 180mg Q24H Take 180 mg by mouth daily a s needed (For HR >100). Takes if HR is greater than 100 Watson Leal clonAZEPAM (KlonoPIN) 0.5 MG disintegrating tablet 2018-04 18:39:53 Yes .5mg Q.5D Take 0.5 mg by mouth 2 (two) times a day as needed for seizures. [facility] Leal loratadine (CLARITIN) 10 mg tablet 2018-04-15 18:39:53 Yes 10mg QD Take 10 mg by mouth daily. [facility] Leal coenzyme Q10 200 mg capsule 2018-04-15 18:39:53 Yes 200mg QD Take 200 mg by mouth daily. [facility] Leal omega 8-lgc-emb-fish oil (FISH OIL) 100-160-1,000 mg capsule 2018-04-15 18:39:53 Yes 1{capsule} Take 1 capsule by mouth d aily. [facility]al magnesium oxide (MAG-OX) 400 mg (241.3 mg magnesium) tablet 2018-04-15 18:39:53 Yes 400mg QD Take 400 mg by mouth daily. [facility] Leal folic acid (FOLVITE) 1 MG tablet 2018-04-15 18:39:53 Yes 1mg QD Take 1 mg by mouth daily. [facility] Leal cholecalciferol, vitamin D3, (VITAMIN D3) 400 unit tablet 2018-04-15 18:39:53 Yes 400U QD Take 400 Units by mouth daily. [facility] traMADol (ULTRAM) 50 mg tablet 2018-04-15 18:39:53 Yes 50mg Q6H Take 50 mg by mouth every 6 (six) hours as needed for moderate pain. Watson Leal metoprolol (LOPRESSOR) 100 MG tablet 2017-12-14 00:00:00 Ye s Take 50 mg twice per day. [facility] dilTIAZem (CARDIZEM CD) 180 MG 24 hr capsule 2017-12-13 07:38:34 Yes 180mg Take 180 mg by mouth as needed Takes as needed for BP . [facility] folic acid (FOLVITE) 1 MG tablet 2017-12-13 07:36:15 Yes 1mg QD Take 1 mg by mouth daily. [facility] clonazePAM (KLONOPIN) 0.5 MG tablet 2017-12-13 07:36:15 Yes .5mg Take 0.5 mg by mouth 2 (two) times daily as needed for Anxiety. [facility] silodosin 8 mg Cap 2017-12-13 07:28:14 Yes T payton by mouth. [facility] clopidogrel (PLAVIX) 75 mg tablet 2017-12-13 07:28:14 Yes 75mg QD Take 75 mg by mouth daily. [facility] dronedarone (MULTAQ) 400 mg tablet 2016-08-24 06:20:59 Yes 400mg Take 400 mg by mouth 2 (two) times daily with breakfast and dinner. [facility] loratadine (CLARITIN) 10 mg tablet 2016-08-24 06:20:59 Yes 10mg QD Take 10 mg by mouth daily. [facility] finasteride (PROSCAR) 5 mg tablet 2016-02-15 12:11:04 Yes 5mg QD Take 5 mg by mouth daily. [facility] rivaroxaban (XARELTO) 20 mg Tab tablet 2016-02-15 12:11:04 Yes QD Take by mouth daily. [facility] cetirizine (ZYRTEC) 10 MG tablet 2016-02-15 12:11:04 Yes 10mg QD Take 10 mg by mouth daily. [facility] MAGNESIUM CHLORIDE (SLOW-MAG ORAL) 2016-02-15 12:11:04 Yes Take by mouth. [facility] CHOLECALCIFEROL, VITAMIN D3, ORAL 2016-02-15 12:11:04 Yes Take by mouth. [facility] coenzyme Q10 100 mg capsule 2016-02-15 12:11:04 Yes 100mg QD Take 100 mg by mouth daily. [facility] metFORMIN (GLUCOPHAGE) 500 MG tablet 2016-02-15 00:00:00 Ye s 500mg Take 1 tablet (500 mg total) by mouth 2 (two) times daily with breakfast and dinner. [facility] Clonazepam 0.5 Mg Tab.rapdis Clonazepam 0.5 Mg Tab.rapdis Y es .5 Bedtime as needed for Anxiety [facility] Clopidogrel Bisulfate (Plavix) 75 Mg Tablet Clopidogre l Bisulfate (Plavix) 75 Mg Tablet Yes 75 Daily [facility] Digoxin 125 Mcg Tablet Digoxin 125 Mcg Tablet Yes .125 Daily [facility] Eliquis 2.5 Eliquis 2.5 Yes 2.5 Twice A Day [facility] Finasteride 5 Mg Tablet Finasteride 5 Mg Tablet Yes 5 Daily [facility] Fish Oil/Dha/Epa (Fish Oil 1,200 Mg Fish Oil) 1 Each C apsule Fish Oil/Dha/Epa (Fish Oil 1,200 Mg Fish Oil) 1 Each Capsule Yes 1 Daily [facility] Folic Folic Yes [facility] Furosemide (Lasix) 20 Mg Tablet Furosemide (Lasix) 20 Mg Tablet Yes 20 Daily [facility] Gabapentin 100 Mg Capsule Gabapentin 100 Mg Capsule Yes 100 Daily [facility] Magnesium Oxide 400 Mg Tablet Magnesium Oxide 400 Mg Tablet Yes 400 Daily [facility] Metoprolol Succinate 25 Mg Tab.er.24h Metoprolol Succinate 25 Mg Ta b.er.24h Yes 12.5 Twice A Day [facility] Midodrine Hcl 2.5 Mg Tablet Midodrine Hcl 2.5 Mg Tablet Yes 2.5 Twice A Day [facility] Olden-3 Fatty Acids/Fish Oil (Fish Oil 1,000 Mg Softge l) 1 Each Capsule Olden-3 Fatty Acids/Fish Oil (Fish Oil 1,000 Mg Softgel) 1 Each Capsule Yes 1 Daily [facility] Ubidecarenone (Co Q-10) 100 Mg Capsule Ubidecarenone (Co Q-10) 1 00 Mg Capsule Yes 100 Daily [facility] Vitamin D3 Vitamin D3 Yes [facility] Finasteride 5 Mg Tablet, 5 Mg Oral Finasteride 5 Mg Tablet, 5 Mg Oral 2018-05-29 00:00:00 No 5 Bedtime [facility] Rapaflo , Rapaflo , 2018-05-29 00:00:00 No [facility] Clonidine Hcl 0.1 Mg Tablet, 0.1 Mg Oral Clonidine Hcl 0.1 Mg Tablet, 0.1 Mg Oral 2018-05-24 00:00:00 No .1 As N eeded as needed for High Blood Pressure [facility] Diltiazem Hcl (Diltiazem 24HR Er) 180 Mg Capcr, 180 Mg Oral Diltiazem Hcl (Diltiazem 24HR Er) 180 Mg Capcr, 180 Mg Oral 2018-05-24 00:00:00 No 180 Daily as needed for High Blood Pressure [facility] Lisinopril 10 Mg Tablet, 40 Mg Oral Lisinopril 10 Mg Tablet, 40 Mg Oral 2018-05-24 00:00:00 No 40 Daily as needed for High Blood Pressure [facility] Metformin Hcl 500 Mg Tablet, 500 Mg Oral Metformin Hcl 500 Mg Tablet, 500 Mg Oral 2018-05-24 00:00:00 No 500 Twice A Day [facility] Metoprolol Succinate 50 Mg Tab.er.24h, 150 Mg Oral Met oprolol Succinate 50 Mg Tab.er.24h, 150 Mg Oral 2018-05-24 00:00:00 No 150 Daily [facility] Rivaroxaban (Xarelto) 20 Mg Tablet, 15 Mg Oral Rivarox aban (Xarelto) 20 Mg Tablet, 15 Mg Oral 2018-05-24 00:00:00 No 15 Daily [facility] Citalopram Hydrobromide (Citalopram Hbr) 20 Mg Tablet, 20 Mg Oral Citalopram Hydrobromide (Citalopram Hbr) 20 Mg Tablet, 20 Mg Oral 2018-01-07 00:00:00 No 20 Daily [facility] Dronedarone Hydrochloride (Multaq) 400 Mg Tablet, 400 Mg Oral Dronedarone Hydrochloride (Multaq) 400 Mg Tablet, 400 Mg Oral 2018-01-27 00:00:00 No 400 Twice A Day [facility] Isosorbide Mononitrate 20 Mg Tablet, 20 Mg Oral Isosor bide Mononitrate 20 Mg Tablet, 20 Mg Oral 2018-01-27 00:00:00 No 20 As Needed as needed for High Blood Pressure [facility] Alfuzosin Hcl 10 Mg Tab.er.24h, 10 Mg Oral Alfuzosin H cl 10 Mg Tab.er.24h, 10 Mg Oral 2017-08-28 00:00:00 No 10 Daily [facility] Aspirin (Aspir 81) 81 Mg Tablet., 81 Mg Oral Aspirin (Aspir 81) 81 Mg Tablet., 81 Mg Oral 2017-08-28 00:00:00 No 81 Da lisa [facility] Cetirizine Hcl (Zyrtec) 10 Mg Tablet, 10 Mg Oral Cetir izine Hcl (Zyrtec) 10 Mg Tablet, 10 Mg Oral 2017-08-28 00:00:00 No 10 Daily [facility] Metoprolol Tartrate 25 Mg Tablet, 12.5 Mg Oral Metopro lol Tartrate 25 Mg Tablet, 12.5 Mg Oral 2017-08-28 00:00:00 No 12.5 Twice A Day [facility] Rivaroxaban (Xarelto) 20 Mg Tablet, 20 Mg Oral Rivarox aban (Xarelto) 20 Mg Tablet, 20 Mg Oral 2017-08-28 00:00:00 No 20 .q Ot her Day [facility] Aspirin (Aspir 81) 81 Mg Tablet., 81 Mg Oral Aspirin (Aspir 81) 81 Mg Tablet., 81 Mg Oral 2016-06-22 00:00:00 No 81 Us e As Directed [facility] Digoxin 125 Mcg Tablet, 0.125 Mg Oral Digoxin 125 Mcg Tablet, 0. 125 Mg Oral 2016-06-22 00:00:00 No .125 Daily [facility] Lisinopril 10 Mg Tablet, 10 Mg Oral Lisinopril 10 Mg Tablet, 10 Mg Oral 2016-06-22 00:00:00 No 10 As Needed [facility] Flecainide Acetate 50 Mg Tablet, 125 Mg Oral Flecainid e Acetate 50 Mg Tablet, 125 Mg Oral 2016-05-30 00:00:00 No 125 Daily [facility] Ubidecarenone (Co Q-10) 10 Mg Capsule, Ubidecarenone (Co Q-10) 1 0 Mg Capsule, 2016-05-30 00:00:00 No [facility] Digoxin 125 Mcg Tablet, 0.125 Mg Oral Digoxin 125 Mcg Tablet, 0. 125 Mg Oral 2016-03-04 00:00:00 No .125 Daily [facility] Rivaroxaban (Xarelto) 20 Mg Tablet, 20 Mg Oral Rivarox aban (Xarelto) 20 Mg Tablet, 20 Mg Oral 2016-02-03 00:00:00 No 20 Daily [facility] Lisinopril 10 Mg Tablet, 10 Mg Oral Lisinopril 10 Mg Tablet, 10 Mg Oral 2016-02-02 00:00:00 No 10 [facility] Procedures Procedure Date / Time Performed Performing Clinician [facility] e US Abdomen limited 2018-07-18 00:00:00 MARICHUY TORRES [facility] Ultrasound of chest including mediastinum 2018-07-18 00:00:0 0 KAT [facility] Complete non-obstetrical ultrasound of pelvis 2018-07-18 00: 00:00 KAT [facility] X-ray of chest, two views 2018-07-17 00:00:00 VANDANA LIAO [facility] Computed tomography of abdomen and pelvis with contrast 2018 00:00:00 KAT [facility] CONTROL BLEEDING IN NOSE SFT TISS, VIA OPENING 2018-05-25 00 :00:00 [facility] TRANSFUSE NONAUT RED BLOOD CELLS IN PERIPH VEIN, PERC 2018-0 05-25 00:00:00 AIDEN CABELLO [facility] INSERT TEMP BLADDER CATH 2018-03-21 00:00:00 JEN SHANKAR S [facility] RPR S/N/AX/GEN/TRNK 2.5CM/< 2018-02-27 00:00:00 JAZMÍNPALMER [place] [facility] Computed tomography of brain without radiopaque contrast 201 12-14-28 00:00:00 DESTINEYAIDEN Quentin [facility] RESECTION OF GALLBLADDER, PERCUTANEOUS ENDOSCOPIC APPROACH 2 00:00:00 ANATOLIY THOMPSON [facility] RELEASE PERITONEUM, PERCUTANEOUS ENDOSCOPIC APPROACH 2018-01 00:00:00 ANATOLIY THOMPSON [facility] INSPECTION OF UPPER INTESTINAL TRACT, ENDO 2018-01-30 00:00: 00 ANATOLIY THOMPSON [facility] Computed tomography of abdomen and pelvis with contrast 2017 00:00:00 MITCHEL TAPIA [facility] US Gallbladder 2018-01-27 00:00:00 MITCHEL TAPIA [facility] X-ray of chest, two views 2017-12-17 00:00:00 MAINE RAMIRES [facility] L HRT ARTERY/VENTRICLE ANGIO 2017-12-04 00:00:00 RAJINDER GROSS [facility] Plan of Care Planned Activity Planned Date Details Comments Source Future Scheduled Test 2020-02-06 00:00:00 INFLUENZA VACCINE [code = INFLUENZA VACCINE] [facility] Future Scheduled Test 2007 00:00:00 65+ PNEUMOCOCCAL V ACCINE (2 of 2 - PPSV23) [code = 65+ PNEUMOCOCCAL VACCINE (2 of 2 - PPSV23)] [facility] Future Scheduled Test 1992 00:00:00 SHINGLES VACCINES (#1) [code = SHINGLES VACCINES (#1)] [facility] Future Scheduled Test 1952 00:00:00 DIABETIC FOOT EXAM [code = DIABETIC FOOT EXAM] [facility] Future Scheduled Test 1952 00:00:00 URINE MICROALBUMIN [code = URINE MICROALBUMIN] [facility] Future Scheduled Test 1942 00:00:00 DIABETIC RETINAL E YE EXAM [code = DIABETIC RETINAL EYE EXAM] [facility] Encounters Start Date/Time End Date/Time En[facility] ID Source 2018-07-17 16:49:00 2018-07-19 19:31:00 Discharged Inpatient (obs) [address] [facility] [id number] [facility] 2018-07-13 14:33:00 2018-07-13 14:33:00 Registered Clinic [address] [facility] [id number] [facility] 2018-05-29 03:09:00 2018-05-29 18:55:00 Discharged Inpatient [address] [facility] [id number] [facility] 2018-05-24 16:59:00 2018-05-25 11:34:00 Discharged Inpatient [address] [facility] [id number] [facility] 2018-04-14 01:51:00 2018-04-14 03:39:[address] [facility] [id number] [facility] 2018-03-21 00:35:00 2018-03-21 02:13:[address] [facility] [id number] [facility] 2018-03-14 11:13:00 2018 08:28:00 Discharged Inpatient (obs) [address] [facility] [id number] [facility] 2018-02-27 08:40:00 2018-02-27 10:15:[address] [facility] [id number] [facility] 2018-01-30 01:09:00 2018-02-05 15:50:00 Discharged Inpatient [address] [facility] [id number] [facility] 2018-01-27 17:52:00 2018-01-27 23:51:00 Departed Emergency Room [address] [facility] [id number] [facility] 2018-01-23 12:45:00 2018-01-23 12:45:[address] [facility] [id number] [facility] 2017-12-17 07:24:00 2017-12-17 11:53:00 Departed Emergency Room [address] [facility] [id number] [facility] 2017-12-04 10:01:00 2017-12-04 10:01:00 [address] [facility] Day Care [facility] [id number] [facility] 2017-11-22 10:13:00 2017-11-22 10:13:00 Registered Clinic [address] [facility] [id number] [facility] 2017-08-27 23:29:00 2017-08-28 04:30:00 Departed Emergency Room ER GREGORY GASTELUM [facility] [id number] [facility] 2017-03-22 08:59:00 2017-03-22 15:03:[address] [facility] [id number] [facility] 2017-03-22 02:53:00 2017-03-22 04:19:[address] [facility] [id number] [facility] Results Test Description Test Time Test Comments Results Result Comments Source IV INFUS, HYDRAT 31MIN-1HR 2019-11-14 16:02:00 [address], [place], [place] [address] Patient Name: ELVIS LIPSCOMB MR #: [id number] : 1940 Age/Sex: 79/M Req #: [id number] Adm Physician: Ordered by: EUGENE TAPIA MD Report #: [id number] Location: CT Room/Bed: Procedure: [id number] CT/IV INFUS, HYDRAT 31MIN-1HR Exam Date: 11/14/19 Exam Time: 915 REPORT STATUS: Signed IV fluid given for hydration to this patient because of her GFR of 57 following an intravenous contrast enhanced CT scan. Signed by: Eugene Tapia MD on 11/14/2019 4:03 PM Dictated By: EUGENE TAPIA MD 02 Transcribed By: MUNDO on 11/14/191602 COPY TO: EUGENE TAPIA MD CT ABDOMEN/PELVIS W 2019-11-14 09:33:00 [facility] [address] [place] [id number] Patient Name: ELVIS LIPSCOMB MR #: [id number] : 1940 Age/Sex: 79/M Req #: [id number] Adm Physician: Ordered by: IVAN COLE MD Report #: [id number] Location: CT Room/Bed: Procedure: [id number] CT/CT ABDOMEN/PELVIS W Exam Date: 11/14/19 Exam Time: 915 REPORT STATUS: Signed CT of the abdomen and pelvis. Comparison: None Clinical History: Abdominal pain Technique: Helical CT scan of the abdomen and pelvis was performed. Intravenous contrast administration was utilized. Oral contrast administration was not utilized. C oronal and sagittal reconstructions were generated from the raw data. Multiple images were submitted for interpretation. This exam was performed according to our departmental dose-optimization program which includes automated exposure control, adjustment of the mA and/or kV according to patient size Discussion: Inferior chest: Right pleural effusion.2 right posterior aspect superior segment of the lower lobe 6 mm smooth nodule with no calcification in the peripheral location. Likely an old granuloma. Cardiomegaly. Coronary artery calcification. Coronary artery stent in the LAD location. Dual-chamber pacemaker wires in the cardiac chambers on the right side. No pericardial effusion. Liver: No stigmata of cirrhosis are a focal mass. Reflux of contrast into the hepatic veins suggesting elevated right- sided pressures for example with right heart failure Spleen: Unremarkable Pancreas: Unremarkable. Biliary tree and gallbladder: Status post cholecyst ectomy. No biliary dilatation. Adrenal glands: Unremarkable Kidneys and ureters: Small right exophytic renal cyst measuring approximately 1.5 x 1.1 cm with fluid density. No calculi are other renal masses. No obstruction. Vasculature: Minimal atherosclerotic calcification. Lymph nodes: No lymphadenopathy Bowel: The descending colon is located more anteriorly suggesting the presence of a possible left colonic mesentery. No significant abnormality otherwise. Specifically, no diverticulosis or diverticulitis. No abnormal bowel distention. Pelvis: Urinary bladder is unremarkable. Prostate shows median lobe hypertrophy with impression on the bladder. Seminal vesicles unremarkable. Pelvic wall unremarkable. Peritoneum: Unremarkable Perineal compartments: unremarkable. Fluid: No free fluid Bones: Unremarkable Body wall: Small umbilical hernia. Left inguinal hernia. Bilateral hydroceles. Presence of shrapnel in the anterior abdominal and lower chest wall. Impression: 1. Right heart failure 2. Prostatomegaly with likely bladder outlet obstruction 3. Left inguinal hernia and bilateral hydroceles 4. Right pleural effusion. This could be a reflection of the right heart failure. Clinical correlation. 5. A small right lung nodule, likely granuloma. Full CT of the chest may be performed for further evaluation of the lungs. Signed by: Eugene Tapia MD on 11/14/2019 9:55 AM Dictated By: EUGENE TAPIA MD 4 Transcribed By: MUNDO on 11/14/19954 COPY TO: IVAN COLE MD BASIC METABOLIC PANEL 2019-07-12 11:53:00 Test Item SODIUM (test code = NA) 142 mmol/L 136-145 N POTASSIUM (test code = K) 5.3 mmol/L 3.5-5.1 H CHLORIDE (test code = CL) 106.0 mmol/L 98-107 N CARBON DIOXIDE (test code = CO2) 32.0 mmol/L 21-32 N ANION GAP (test code = GAP) 9.3 10-20 L GLUCOSE (test code = GLU) 62 mg/dL 74-106 L BLOOD UREA NITROGEN (test code = BUN) 22 mg/dL 7-18 H GLOMERULAR FILTRATION RATE (test code = GFR) 59 mL/min >=60 Estimated GFR by using Modified MDRD formula.Chronic kidney disease is defined as either kidney damageor GFR <60 mL/min/1.73 m2 for >3 months. CREATININE (test code = CREAT) 1.20 mg/dL 0.7-1.3 N BUN/CREATININE RATIO (test code = BUN/CREA) 18.3 10-20 N CALCIUM (test code = CA) 9.4 mg/dL 8.5-10.1 N [id number] 11:53:00* Test Item Value Reference Range Interpretation Comments GLYCOSYLATED HEMOGLOBIN (HA1C) (test code = GLYHGB) 6.1 % HbA1 SUGGESTED DIAGNOSIS: HbA1C (%) Diabetic >6.4Prediabetes 5.7 - 6.4Normal <5.7 ESTIMATED AVERAGE GLUCOSE (test code = EAG) 128 MG/DL BASIC METABOLIC [id number] 11:37:00* Test Item Value Reference Range Interpretation Comments SODIUM (test code = NA) 142 mmol/L 136-145 N POTASSIUM (test code = K) 5.3 mmol/L 3.5-5.1 H CHLORIDE (test code = CL) 106.0 mmol/L 98-107 N CARBON DIOXIDE (test code = CO2) mmol/L 21-32 ANION GAP (test code = GAP) 10-20 GLUCOSE (test code = GLU) mg/dL 74-106 BLOOD UREA NITROGEN (test code = BUN) mg/dL 7-18 GLOMERULAR FILTRATION RATE (test code = GFR) mL/min >=60 CREATININE (test code = CREAT) mg/dL 0.7-1.3 BUN/CREATININE RATIO (test code = BUN/CREA) 10-20 CALCIUM (test code = CA) mg/dL 8.5-10.1 - XR CHEST 2 [id number] 10:29:00 FAX: Kenyetta Garcia MD [phone] [place]: O St: REG FAX: Aiden Soni MD [phone] Name: ELVIS LIPSCOMB [facility] : 1940 Age/S: 79/M [address] [facility] Unit #: [id number] Loc: [place] [address] Phys: Kenyetta Gimenez MD Acct: [id number] Dis Date: Status: REG CLI PHONE #: [phone] Exam Date: 03/20/2019 1021 FAX #: [phone] Reason: PLEURAL EFFUSION EXAMS: CPT CODE: [id number] XR CHEST 2 V 65967 HISTORY: Pleural effusion. COMPARISON: November 06, 2018. AP and lateral view of the chest: Location: HCA. Left ICD is unchanged. No acute infiltrates, effusion or congestion. Cardiac silhouette is mildly enlarged. DJD of the dorsal spine. Multiple metallic fragments within the left chest wall. These are unchanged. IMPRESSION: No acute infiltrates, effusion or congestion. at 1029 Reported and signed by: Jim Ceron M.D. CC: Kenyetta Gimenez MD; Aiden Cabello Technologist: RT Ben(Victor Hugo) Trnscrd Date/Time/By: 03/20/2019 (1024) : By: [email or web address] Orig Print D/T: S: 03/20/2019 (5688) PAGE 1 Signed Report [id number] 09:41:00* Test Item Value Reference Range Interpretation Comments GLYCOSYLATED HEMOGLOBIN (HA1C) (test code = GLYHGB) 6.8 % HbA1 4. 8-6.0 H ESTIMATED AVERAGE GLUCOSE (test code = EAG) 148 MG/DL BASIC METABOLIC [id number] 09:36:00* Test Item Value Reference Range Interpretation Comments SODIUM (test code = NA) 143 mmol/L 136-145 N POTASSIUM (test code = K) 4.7 mmol/L 3.5-5.1 N CHLORIDE (test code = CL) 105.0 mmol/L 98-107 N CARBON DIOXIDE (test code = CO2) 31.0 mmol/L 21-32 N ANION GAP (test code = GAP) 11.7 10-20 N GLUCOSE (test code = GLU) 142 mg/dL 74-106 H BLOOD UREA NITROGEN (test code = BUN) 20 mg/dL 7-18 H GLOMERULAR FILTRATION RATE (test code = GFR) 59 mL/min >=60 Estimated GFR by using Modified MDRD formula.Chronic kidney disease is defined as either kidney damageor GFR <60 mL/min/1.73 m2 for >3 months. CREATININE (test code = CREAT) 1.20 mg/dL 0.7-1.3 N BUN/CREATININE RATIO (test code = BUN/CREA) 16.9 10-20 N CALCIUM (test code = CA) 9.1 mg/dL 8.5-10.1 N BASIC METABOLIC [id number] 09:29:00* Test Item Value Reference Range Interpretation Comments SODIUM (test code = NA) 143 mmol/L 136-145 N POTASSIUM (test code = K) 4.7 mmol/L 3.5-5.1 N CHLORIDE (test code = CL) 105.0 mmol/L 98-107 N CARBON DIOXIDE (test code = CO2) mmol/L 21-32 ANION GAP (test code = GAP) 10-20 GLUCOSE (test code = GLU) mg/dL 74-106 BLOOD UREA NITROGEN (test code = BUN) mg/dL 7-18 GLOMERULAR FILTRATION RATE (test code = GFR) mL/min >=60 CREATININE (test code = CREAT) mg/dL 0.7-1.3 BUN/CREATININE RATIO (test code = BUN/CREA) 10-20 CALCIUM (test code = CA) mg/dL 8.5-10.1 [id number] 14:05:00* Test Item Value Reference Range Interpretation Comments DIGOXIN (test code = DIG) 0.8 ng/mL 0.90-2.0 L NO TE: Spironolactone interference may cause a decrease inreported Digoxin results of 11-30 %. PROTHROMBIN [id number] 11:42:00* Test Item Value Reference Range Interpretation Comments PROTHROMBIN TIME PATIENT (test code = PTP) 16.6 seconds 9.0-14.0 H INTERNATIONAL NORMAL RATIO (test code = INR) 1.4 0.8-1.2 H The therapeutic range for oral anticoagulant therapy formost indications is an international normalized ratio (INR)of between 2.0 and 3.0. The recommended therapeutic INRrange for various clinical situations is listed below: Clinical Situation INR range Pulmonary e mbolism treatment (2.0-3.0)Venous thrombosis treatmentVenous thrombosis prophylaxis (high risk surgery)Prevention of systemic embolism from: Acute myocardial infarction Valvular heart disease Atrial fibrillation Mechanical prosthetic heart valves (2.5-3.5) CHEST 2 [id number] 14:09:00 [facility] [address] [place] [address] Patient Name: ELVIS LIPSCOMB MR #: [id number] : 1940 Age/Sex: 78/M Req #: [id number] [facility] Physician: Ordered by: RAJINDER GROSS MD Report #: [id number] Location: [facility] Room/Bed: Procedure: [id number] DX/ CHEST 2 VIEWS Exam Date: 02/04/19 Exam Time: 1355 REPORT STATUS: Signed EXAMINATION: CHEST 2 VIEWS INDICATION: Shortness of breath COMPARISON: Chest radiograph 07/17/2018 FINDINGS: LINES/TUBES:Left chest pacer with leads unchanged. LUNGS:The lungs are well-inflated. No focal consolidation or pulmonary edema. PLEURA:No pleural effusion or pneumothorax. MEDIAS TINUM:Cardiomediastinal silhouette is stably enlarged. Atherosclerotic calcifi cations of the thoracic aorta. BONES/SOFT TISSUES:No acute osseous injury. Mild degenerative changes of the visualized spine. Scattered metallic shrapnel in the soft tissues of the anterior chest wall. ABDOMEN:No free air under the diaphragm. IMPRESSION: No focal pneumonia or pulmonary edema. S table cardiomegaly. Signed by: Dandre Shell MD on 02/04/2019 2:12 PM D ictated By: DANDRE SHELL MD 1 412 Transcribed By: MUNDO on 02/04/19 1412 COPY TO: RAJINDER GROSS MD PLEURAL [id number] 17:05:00 RUN DATE: 11/07/18 [facility] PAGE 1 RUN TIME: 1705 Specimen Inqui ry RUN USER: INTERFACE PATIENT: ELVIS LIPSCOMB ACCT #: [id number] LOC: [facility]E U #: [id number] AGE/SX: 78/M ROOM: RE11/06/18REG DR: Kali Herrmann MD : [birth year] BED: DIS: STATUS: [facility] TLOC: SPEC #: [id number] RECD: 11/06/18 STATUS: [facility] #: [id number] [place]: 11/06/18- [facility] DR: Kali Herrmann MD ENTERED: 11/06/18 SP TYPE: PLEURAL FL OTHR DR: Daniel Cabello MD ORDERED: GROSS COPIES TO: Aiden Cabello MD [address] [place] [address] Kali Herrmann MD [address] [place] [address] PROCEDURES: GROSS (11/07/18-1 339) TISSUES: PLEURAL FLUID, NOS - 30ML PINK FLUID CLINICAL HI STORY COLLECTION DATE: 11/06/18 HISTORY CHF, PLEURAL EFFUSION COMMENT Two concentrated smears, a cytospin and cell block are prepared from the fluid. FINAL DIAGNOSIS Right pleural fluid, cytology: NEG ATIVE FOR MALIGNANCY LYMPHOCYTES, FEW NEUTROPHILS, MESOTHELIAL CELLS AND MACROPHAGES IN BACKGROUND OF RED BLOOD CELLS RRB/ D 883 05, 36868 CONTINUED ON NEXT PAGE ------- -----RUN DATE: 11/07/18 [facility] PAGE 2 RUN TIME: 1705 Specimen Inquiry RUN USER: INTERFACE SPEC #: [id number] PATIENT: ELVIS LIPSCOMB S #[id number] (Continued) MACROSCOPIC The specimen consists of 30 mL of pink fluid to be concentrated and processed for cytologic evaluation. A cell block is prepared. GROSS PERFORMED AT [facility] [address] [place] [address], [place] [address] [phone] the [address] ains, including any controls performed, stain appropriately. MICROSCOPIC P ERFORMED AT [facility] [address] [place] [address] (P)[phone] PERFORMING SITE Diagn osis performed at: [facility], MARTHA [address] [place] [address] Signed SIGNATURE ON FILE Jeremias Hurley MD 11/07/18 1709 END OF REPORT - SP THORACENTESIS [id number] 13:17:00 Name: ELVIS LIPSCOMB [facility] : 1940 Age/S: 78 / M [address] [place] [address] H[address] Unit #: [id number] Loc: [place] [address] Phys: Steven Herrmann MD Acct: [id number] Di s Date: Status: [facility] PHONE #: Exam Date: 11/06/2018 1007 FAX #: [phone] Reason: EXAMS: CPT CODE: [id number] SP THORACENTESIS W/IMAG 04834 Fluoro Time: DAP (Gy m2): Air Kerma (mGy): EXAM: Ultrasound-guided thoracentesis; INFORMATION: CHF, shortness of breath; right-sided pleural effusion by ultrasound and chest x-rays; TECHNIQUE AND FINDINGS: Informed consent was obtained and the patient was placed in upright s itting position. Ultrasound confirmed presence of a moderate right-sided p leural effusion. The patient's skin in the right posterior inferior chest region was prepped and draped in the usual sterile fashion. Xylocain e was administered and using sonographic guidance an 8 Nepalese pigtail catheter was inserted into the right pleural cavity. 960 mL of clear yel lowish pleural fluid were drained and samples were sent to the lab. The dr galaviz catheter was then removed. No complications. IMPRES CHARLETTE: Successful ultrasound-guided right thoracentesis. at 1317 Reported and signed by: Kali Herrmann M.D. CC: Aiden Cabello Gerhard R MD Technologist: Luisito Wild RT(R) Trnohb Date/Time: 11/07/2018 (1317) ClovisGRW Orig Print D/T: S: 11/07/2018 (7982) PAGE 1 Signed Re port BODY FLUID CELL [id number] 13:12:00* Test Item Value Reference Range Interpretation Comments FLUID SOURCE (test code = SOURCEFL) PLEURAL FLD FLUID COLOR (test code = COLFL) YELLOW COLORLESS FLUID APPEARANCE (test code = APPFL) CLEAR FLUID WBC (test code = WBCFL) 22 per mm3 0-150 N QC performed - Cell count on both sides of chamber agreeswithin 20% ? Y FLUID RBC (test code = RBCFL) 625 per mm3 0-50 H FLUID POLY (test code = POLYFL) 14.6 % FLUID LYMPHOCYTE (test code = LYMPHFL) 79.7 % FLUID EOSINOPHIL (test code = EOSFL) 0.0 % FLUID BASOPHIL (test code = BASOFL) 0.0 % FLUID MACROPHAGE (test code = MACFL) 5.7 % FLUID OTHER CELL (test code = OTHERFL) 0.0 % TOTAL CELLS COUNTED ON DIFF (test code = TOTCELLFL) 123 cells REVIEWED BY (test code = REVIEW) LORENZA GARCIA PATHOLOGIST FLUID [id number] 13:12:00* Test Item Value Reference Range Interpretation Comments FLUID PH (test code = PHFL) 7.5 6.8-7.6 N FLUID [id number] 13:12:00* Test Item Value Reference Range Interpretation Comments FLUID GLUCOSE (test code = GLUFL) 113 mg/dL FLUID [id number] 13:12:00* Test Item Value Reference Range Interpretation Comments FLUID PROTEIN (test code = PROTFL) 2.5 gram/dL FLUID [id number] 13:12:00* Test Item Value Reference Range Interpretation Comments FLUID LDH (test code = LDHFL) 78 IUnit/L BODY FLUID CELL [id number] 02:41:00* Test Item Value Reference Range Interpretation Comments FLUID SOURCE (test code = SOURCEFL) PLEURAL FLD FLUID COLOR (test code = COLFL) YELLOW COLORLESS FLUID APPEARANCE (test code = APPFL) CLEAR FLUID WBC (test code = WBCFL) 22 per mm3 0-150 N QC performed - Cell count on both sides of chamber agreeswithin 20% ? Y FLUID RBC (test code = RBCFL) 625 per mm3 0-50 H FLUID POLY (test code = POLYFL) 14.6 % FLUID LYMPHOCYTE (test code = LYMPHFL) 79.7 % FLUID EOSINOPHIL (test code = EOSFL) 0.0 % FLUID BASOPHIL (test code = BASOFL) 0.0 % FLUID MACROPHAGE (test code = MACFL) 5.7 % FLUID OTHER CELL (test code = OTHERFL) 0.0 % TOTAL CELLS COUNTED ON DIFF (test code = TOTCELLFL) 123 cells REVIEWED BY (test code = REVIEW) PATHOLOGIST FLUID [id number] 02:41:00* Test Item Value Reference Range Interpretation Comments FLUID PH (test code = PHFL) 7.5 6.8-7.6 N FLUID [id number] 02:41:00* Test Item Value Reference Range Interpretation Comments FLUID GLUCOSE (test code = GLUFL) 113 mg/dL FLUID [id number] 02:41:00* Test Item Value Reference Range Interpretation Comments FLUID PROTEIN (test code = PROTFL) 2.5 gram/dL FLUID [id number] 02:41:00* Test Item Value Reference Range Interpretation Comments FLUID LDH (test code = LDHFL) 78 IUnit/L BODY FLUID CELL [id number] 13:50:00* Test Item Value Reference Range Interpretation Comments FLUID SOURCE (test code = SOURCEFL) PLEURAL FLD FLUID COLOR (test code = COLFL) YELLOW COLORLESS FLUID APPEARANCE (test code = APPFL) CLEAR FLUID WBC (test code = WBCFL) 22 per mm3 0-150 N QC performed - Cell count on both sides of chamber agreeswithin 20% ? Y FLUID RBC (test code = RBCFL) 625 per mm3 0-50 H FLUID POLY (test code = POLYFL) 14.6 % FLUID LYMPHOCYTE (test code = LYMPHFL) 79.7 % FLUID EOSINOPHIL (test code = EOSFL) 0.0 % FLUID BASOPHIL (test code = BASOFL) 0.0 % FLUID MACROPHAGE (test code = MACFL) 5.7 % FLUID OTHER CELL (test code = OTHERFL) 0.0 % TOTAL CELLS COUNTED ON DIFF (test code = TOTCELLFL) cells REVIEWED BY (test code = REVIEW) PATHOLOGIST FLUID [id number] 13:50:00* Test Item Value Reference Range Interpretation Comments FLUID PH (test code = PHFL) 7.5 6.8-7.6 N FLUID [id number] 13:50:00* Test Item Value Reference Range Interpretation Comments FLUID GLUCOSE (test code = GLUFL) 113 mg/dL FLUID [id number] 13:50:00* Test Item Value Reference Range Interpretation Comments FLUID PROTEIN (test code = PROTFL) 2.5 gram/dL FLUID [id number] 13:50:00* Test Item Value Reference Range Interpretation Comments FLUID LDH (test code = LDHFL) 78 IUnit/L BODY FLUID CELL [id number] 13:42:00* Test Item Value Reference Range Interpretation Comments FLUID SOURCE (test code = SOURCEFL) PLEURAL FLD FLUID COLOR (test code = COLFL) YELLOW COLORLESS FLUID APPEARANCE (test code = APPFL) CLEAR FLUID WBC (test code = WBCFL) 22 per mm3 0-150 N QC performed - Cell count on both sides of chamber agreeswithin 20% ? Y FLUID RBC (test code = RBCFL) 625 per mm3 0-50 H FLUID POLY (test code = POLYFL) 14.6 % FLUID LYMPHOCYTE (test code = LYMPHFL) 79.7 % FLUID EOSINOPHIL (test code = EOSFL) 0.0 % FLUID BASOPHIL (test code = BASOFL) 0.0 % FLUID MACROPHAGE (test code = MACFL) 5.7 % FLUID OTHER CELL (test code = OTHERFL) 0.0 % TOTAL CELLS COUNTED ON DIFF (test code = TOTCELLFL) cells REVIEWED BY (test code = REVIEW) PATHOLOGIST FLUID [id number] 13:42:00* Test Item Value Reference Range Interpretation Comments FLUID PH (test code = PHFL) 6.8-7.6 FLUID [id number] 13:42:00* Test Item Value Reference Range Interpretation Comments FLUID GLUCOSE (test code = GLUFL) 113 mg/dL FLUID [id number] 13:42:00* Test Item Value Reference Range Interpretation Comments FLUID PROTEIN (test code = PROTFL) 2.5 gram/dL FLUID [id number] 13:42:00* Test Item Value Reference Range Interpretation Comments FLUID LDH (test code = LDHFL) 78 IUnit/L BODY FLUID CELL [id number] 13:28:00* Test Item Value Reference Range Interpretation Comments FLUID SOURCE (test code = SOURCEFL) PLEURAL FLD FLUID COLOR (test code = COLFL) YELLOW COLORLESS FLUID APPEARANCE (test code = APPFL) CLEAR FLUID WBC (test code = WBCFL) 22 per mm3 0-150 N QC performed - Cell count on both sides of chamber agreeswithin 20% ? Y FLUID RBC (test code = RBCFL) 625 per mm3 0-50 H TOTAL CELLS COUNTED ON DIFF (test code = TOTCELLFL) cells REVIEWED BY (test code = REVIEW) PATHOLOGIST FLUID [id number] 13:28:00* Test Item Value Reference Range Interpretation Comments FLUID PH (test code = PHFL) 6.8-7.6 FLUID [id number] 13:28:00* Test Item Value Reference Range Interpretation Comments FLUID GLUCOSE (test code = GLUFL) 113 mg/dL FLUID [id number] 13:28:00* Test Item Value Reference Range Interpretation Comments FLUID PROTEIN (test code = PROTFL) 2.5 gram/dL FLUID [id number] 13:28:00* Test Item Value Reference Range Interpretation Comments FLUID LDH (test code = LDHFL) 78 IUnit/L [id number] 12:58:00* Test Item Value Reference Range Interpretation Comments GLUBED (test code = GLUBED) 103 mg/dL 74-106 N Performed by certified ladder operator at [facility] BODY FLUID CELL [id number] 11:19:00* Test Item Value Reference Range Interpretation Comments FLUID SOURCE (test code = SOURCEFL) PLEURAL FLD FLUID COLOR (test code = COLFL) YELLOW COLORLESS FLUID APPEARANCE (test code = APPFL) CLEAR FLUID WBC (test code = WBCFL) per mm3 0-150 FLUID RBC (test code = RBCFL) per mm3 0-50 FLUID TOTAL CELLS (test code = TCFL) cells/uL >0 TOTAL CELLS COUNTED ON DIFF (test code = TOTCELLFL) cells REVIEWED BY (test code = REVIEW) PATHOLOGIST FLUID [id number] 11:19:00* Test Item Value Reference Range Interpretation Comments FLUID PH (test code = PHFL) 6.8-7.6 FLUID [id number] 11:19:00* Test Item Value Reference Range Interpretation Comments FLUID GLUCOSE (test code = GLUFL) 113 mg/dL FLUID [id number] 11:19:00* Test Item Value Reference Range Interpretation Comments FLUID PROTEIN (test code = PROTFL) 2.5 gram/dL FLUID [id number] 11:19:00* Test Item Value Reference Range Interpretation Comments FLUID LDH (test code = LDHFL) 78 IUnit/L BODY FLUID CELL [id number] 10:51:00* Test Item Value Reference Range Interpretation Comments FLUID SOURCE (test code = SOURCEFL) PLEURAL FLD FLUID COLOR (test code = COLFL) YELLOW COLORLESS FLUID APPEARANCE (test code = APPFL) CLEAR FLUID WBC (test code = WBCFL) per mm3 0-150 FLUID RBC (test code = RBCFL) per mm3 0-50 FLUID TOTAL CELLS (test code = TCFL) cells/uL >0 TOTAL CELLS COUNTED ON DIFF (test code = TOTCELLFL) cells REVIEWED BY (test code = REVIEW) PATHOLOGIST FLUID [id number] 10:51:00* Test Item Value Reference Range Interpretation Comments FLUID PH (test code = PHFL) 6.8-7.6 FLUID [id number] 10:51:00* Test Item Value Reference Range Interpretation Comments FLUID GLUCOSE (test code = GLUFL) mg/dL FLUID [id number] 10:51:00* Test Item Value Reference Range Interpretation Comments FLUID PROTEIN (test code = PROTFL) gram/dL FLUID [id number] 10:51:00* Test Item Value Reference Range Interpretation Comments FLUID LDH (test code = LDHFL) IUnit/L - XR CHEST 1 [id number] 10:36:00 FAX: Aiden Soni MD [phone] [place]: St: REG FAX: Kali Davalos [phone] Name: ELVIS LIPSCOMB [facility] : 1940 Age/S: 78/M [address] [facility] Unit #: [id number] Loc: [place] [address] Phys: Kali Herrmann MD Acct: [id number] Dis Date: Status: REG [facility] PHONE #: [phone] Exam Date: 11/06/2018 1021 FAX #: [phone] Reason: CHF, SOB; R pleural effusion; st.p. thoracentes EXAMS: CPT CODE: [id number] XR CHEST 1 V 63646 HISTORY: CHF and shortness of breath and right pleural effusion with thoracentesis. COMPARISON: September 28, 2018. Complete resolution of the right effusion. No pneumothorax. Punctate radiopacities overlapping of the left side noted again. Left ICD is unchanged. No acute infiltrates, effusion or congestion is noted. Moderate cardiomegaly is unchanged. IMPRESSION: No pneumothorax after right thoracentesis. No acute infiltrates, effusion or congestion. at 1036 Reported and signed by: Jim Ceron M.D. CC: Aiden Cabello; Kali Herrmann MD Technologist: Taryn Ji(Victor Hugo) Trnscrd Date/Time/By: 11/06/2018 (1036) : By: [email or web address] Orig Print D/T: S: 11/06/2018 (6338) PAGE 1 Signed Report PROTHROMBIN [id number] 17:53:00* Test Item Value Reference Range Interpretation Comments PROTHROMBIN TIME PATIENT (test code = PTP) 16.0 seconds 9.0-14.0 H INTERNATIONAL NORMAL RATIO (test code = INR) 1.4 0.8-1.2 H The therapeutic range for oral anticoagulant therapy formost indications is an international normalized ratio (INR)of between 2.0 and 3.0. The recommended therapeutic INRrange for various clinical situations is listed below: Clinical Situation INR range Pulmonary e mbolism treatment (2.0-3.0)Venous thrombosis treatmentVenous thrombosis prophylaxis (high risk surgery)Prevention of systemic embolism from: Acute myocardial infarction Valvular heart disease Atrial fibrillation Mechanical prosthetic heart valves (2.5-3.5) 11/01/18 1447THROMBOPLASTIN TIME [id number] 17:53:00* Test Item Value Reference Range Interpretation Comments THROMBOPLASTIN TIME PARTIAL (test code = PTT) 41.0 seconds 25.0-36. 5 H 11/01/18 1447COMPREHENSIVE METABOLIC [id number] 17:16:00* Test Item Value Reference Range Interpretation Comments SODIUM (test code = NA) 138 mmol/L 136-145 N POTASSIUM (test code = K) 4.2 mmol/L 3.5-5.1 N CHLORIDE (test code = CL) 101.0 mmol/L 98-107 N CARBON DIOXIDE (test code = CO2) 29.0 mmol/L 21-32 N ANION GAP (test code = GAP) 12.2 10-20 N GLUCOSE (test code = GLU) 86 mg/dL 74-106 N BLOOD UREA NITROGEN (test code = BUN) 13 mg/dL 7-18 N GLOMERULAR FILTRATION RATE (test code = GFR) > 60 mL/min >=60 Estimated GFR by using Modified MDRD formula.Chronic kidney disease is defined as either kidney damageor GFR <60 mL/min/1.73 m2 for >3 months. CREATININE (test code = CREAT) 0.90 mg/dL 0.7-1.3 N BUN/CREATININE RATIO (test code = BUN/CREA) 14.4 10-20 N TOTAL PROTEIN (test code = PROT) 7.0 gram/dL 6.4-8.2 N ALBUMIN (test code = ALB) 3.7 g/dL 3.4-5.0 N GLOBULIN (test code = GLOB) 3.3 gram/dL 2.7-4.2 N ALBUMIN/GLOBULIN RATIO (test code = A/G) 1.1 0.75-1.50 N CALCIUM (test code = CA) 9.4 mg/dL 8.5-10.1 N BILIRUBIN TOTAL (test code = BILT) 0.80 mg/dL 0.0-1.0 N SGOT/AST (test code = AST) 17 IUnit/L 15-37 N SGPT/ALT (test code = ALT) 28 IUnit/L 12-78 N ALKALINE PHOSPHATASE TOTAL (test code = ALKP) 112 IUnit/L 45-117 N Note change in reference range due to change in reagent. 11/01/18 1447COMPREHENSIVE METABOLIC [id number] 16:43:00* Test Item Value Reference Range Interpretation Comments SODIUM (test code = NA) 138 mmol/L 136-145 N POTASSIUM (test code = K) 4.2 mmol/L 3.5-5.1 N CHLORIDE (test code = CL) 101.0 mmol/L 98-107 N CARBON DIOXIDE (test code = CO2) mmol/L 21-32 ANION GAP (test code = GAP) 10-20 GLUCOSE (test code = GLU) mg/dL 74-106 BLOOD UREA NITROGEN (test code = BUN) mg/dL 7-18 GLOMERULAR FILTRATION RATE (test code = GFR) mL/min >=60 CREATININE (test code = CREAT) mg/dL 0.7-1.3 BUN/CREATININE RATIO (test code = BUN/CREA) 10-20 TOTAL PROTEIN (test code = PROT) gram/dL 6.4-8.2 ALBUMIN (test code = ALB) g/dL 3.4-5.0 GLOBULIN (test code = GLOB) gram/dL 2.7-4.2 ALBUMIN/GLOBULIN RATIO (test code = A/G) 0.75-1.50 CALCIUM (test code = CA) mg/dL 8.5-10.1 BILIRUBIN TOTAL (test code = BILT) mg/dL 0.0-1.0 SGOT/AST (test code = AST) IUnit/L 15-37 SGPT/ALT (test code = ALT) IUnit/L 12-78 ALKALINE PHOSPHATASE TOTAL (test code = ALKP) IUnit/L 45-117 11/01/18 [id number] W/AUTO [id number] 16:20:00* Test Item Value Reference Range Interpretation Comments WHITE BLOOD CELL (test code = WBC) 5.9 K/mm3 4.5-12.5 N RED BLOOD CELL (test code = RBC) 4.27 mill/mm3 4.0-5.8 N HEMOGLOBIN (test code = HGB) 11.9 gram/dL 13.0-17.5 L HEMATOCRIT (test code = HCT) 38.8 % 42.0-52.0 L MEAN CELL VOLUME (test code = MCV) 90.9 fL 80-98 N MEAN CELL HGB (test code = MCH) 27.9 picogram 27.0-33.0 N MEAN CELL HGB CONCETRATION (test code = MCHC) 30.7 gram/dL 33.0-36. 0 L RED CELL DISTRIBUTION WIDTH (test code = RDW) 17.2 % 11.6-16. 2 H RED CELL DISTRIBUTION WIDTH SD (test code = RDW-SD) 57.3 fL 37 .0-51.0 H PLATELET COUNT (test code = PLT) 135 K/mm3 150-450 L MEAN PLATELET VOLUME (test code = MPV) 9.5 fL 6.7-11.0 N NEUTROPHIL % (test code = NT%) 73.3 % 39.0-69.0 H IMMATURE GRANULOCYTE % (test code = IG%) 1.2 % 0.0-5.0 N LYMPHOCYTE % (test code = LY%) 12.5 % 25.0-55.0 L MONOCYTE % (test code = MO%) 9.3 % 0.0-10.0 N EOSINOPHIL % (test code = EO%) 3.0 % 0.0-5.0 N BASOPHIL % (test code = BA%) 0.7 % 0.0-1.0 N NUCLEATED RBC % (test code = NRBC%) 0.0 % 0-0 N NEUTROPHIL # (test code = NT#) 4.35 K/mm3 1.8-7.7 N IMMATURE GRANULOCYTE # (test code = IG#) 0.07 x10 3/uL 0-0.03 H LYMPHOCYTE # (test code = LY#) 0.74 K/mm3 1.0-5.0 L MONOCYTE # (test code = MO#) 0.55 K/mm3 0-0.8 N EOSINOPHIL # (test code = EO#) 0.18 K/mm3 0.0-0.5 N BASOPHIL # (test code = BA#) 0.04 K/mm3 0.0-0.2 N NUCLEATED RBC # (test code = NRBC#) 0.00 K/mm3 0.0-0.1 N MANUAL DIFF REQUIRED (test code = MDIFF) NO 11/01/18 1447- US CHST W/[id number] 15:15:00 Name: ELVIS LIPSCOMB [facility] : 1940 Age/S: 78 / M [address] [facility] Unit #: [id number] Loc: [place] [address] Phys: Kali Herrmann MD Acct: [id number] Dis Date: Status: PRE SDC PHONE #: [phone] Exam Date: 11/01/2018 1502 FAX #: [phone] Reason: PRE OP EXAMS: CPT CODE: [id number] US CHST W/MEDIASTINUM 70466 REASON FOR EXAM: PRE OP EXAM ORDER DATE: 11/01/2018 2:44 PM Attending Atiya: Kali Herrmann MD PROCEDURE: - US CHST W/MEDIASTINUM FINDINGS: Limited focal ultrasound performed for assessment of pleural effusions IMPRESSION: Large right pleural effusion. No effusion on the left at 5984 Reported and signed by: Dillon Mace M.D. CC: Aiden Cabello; Kali Herrmann MD Technologist: SKYLA DOOLEY RT(R),RDMS Trnscb Da te/Time: 11/01/2018 (5548) tJOSEPHINE Orig Print D/T: S: 0 11/01/2018 (5866) Probe: PAGE 1 Signed Report CBC W/AUTO [id number] 16:47:00* Test Item Value Reference Range Interpretation Comments WHITE BLOOD CELL (test code = WBC) 9.6 K/mm3 4.5-12.5 N RED BLOOD CELL (test code = RBC) 4.61 mill/mm3 4.0-5.8 N HEMOGLOBIN (test code = HGB) 11.8 gram/dL 13.0-17.5 L HEMATOCRIT (test code = HCT) 40.6 % 42.0-52.0 L MEAN CELL VOLUME (test code = MCV) 88.1 fL 80-98 N MEAN CELL HGB (test code = MCH) 25.6 picogram 27.0-33.0 L MEAN CELL HGB CONCETRATION (test code = MCHC) 29.1 gram/dL 33.0-36. 0 L RED CELL DISTRIBUTION WIDTH (test code = RDW) 21.1 % 11.6-16. 2 H RED CELL DISTRIBUTION WIDTH SD (test code = RDW-SD) 66.6 fL 37 .0-51.0 H PLATELET COUNT (test code = PLT) 190 K/mm3 150-450 N MEAN PLATELET VOLUME (test code = MPV) 9.0 fL 6.7-11.0 N NEUTROPHIL % (test code = NT%) 75.9 % 39.0-69.0 H IMMATURE GRANULOCYTE % (test code = IG%) 4.7 % 0.0-5.0 N LYMPHOCYTE % (test code = LY%) 10.1 % 25.0-55.0 L MONOCYTE % (test code = MO%) 8.1 % 0.0-10.0 N EOSINOPHIL % (test code = EO%) 0.7 % 0.0-5.0 N BASOPHIL % (test code = BA%) 0.5 % 0.0-1.0 N NUCLEATED RBC % (test code = NRBC%) 0.0 % 0-0 N NEUTROPHIL # (test code = NT#) 7.26 K/mm3 1.8-7.7 N IMMATURE GRANULOCYTE # (test code = IG#) 0.45 x10 3/uL 0-0.03 H LYMPHOCYTE # (test code = LY#) 0.97 K/mm3 1.0-5.0 L MONOCYTE # (test code = MO#) 0.78 K/mm3 0-0.8 N EOSINOPHIL # (test code = EO#) 0.07 K/mm3 0.0-0.5 N BASOPHIL # (test code = BA#) 0.05 K/mm3 0.0-0.2 N NUCLEATED RBC # (test code = NRBC#) 0.00 K/mm3 0.0-0.1 N MANUAL DIFF REQUIRED (test code = MDIFF) NO, ONLY SCAN NEEDED DIFFERENTIAL [id number] 16:47:00* Test Item Value Reference Range Interpretation Comments STAIN ACCEPTABILITY (test code = STN ACCEPTABLE) STAIN ACCEPTABLE PLATELET ESTIMATE (test code = PLTEST) ADEQUATE PLATELET MORPHOLOGY (test code = PLTMORPH) NORMAL COMPREHENSIVE METABOLIC [id number] 13:27:00* Test Item Value Reference Range Interpretation Comments SODIUM (test code = NA) 141 mmol/L 136-145 N POTASSIUM (test code = K) 4.7 mmol/L 3.5-5.1 N CHLORIDE (test code = CL) 105.0 mmol/L 98-107 N CARBON DIOXIDE (test code = CO2) 31.0 mmol/L 21-32 N ANION GAP (test code = GAP) 9.7 10-20 L GLUCOSE (test code = GLU) 89 mg/dL 74-106 N BLOOD UREA NITROGEN (test code = BUN) 21 mg/dL 7-18 H GLOMERULAR FILTRATION RATE (test code = GFR) > 60 mL/min >=60 Estimated GFR by using Modified MDRD formula.Chronic kidney disease is defined as either kidney damageor GFR <60 mL/min/1.73 m2 for >3 months. CREATININE (test code = CREAT) 1.00 mg/dL 0.7-1.3 N BUN/CREATININE RATIO (test code = BUN/CREA) 21.0 10-20 H TOTAL PROTEIN (test code = PROT) 6.3 gram/dL 6.4-8.2 L ALBUMIN (test code = ALB) 3.8 g/dL 3.4-5.0 N GLOBULIN (test code = GLOB) 2.5 gram/dL 2.7-4.2 L ALBUMIN/GLOBULIN RATIO (test code = A/G) 1.5 0.75-1.50 N CALCIUM (test code = CA) 8.9 mg/dL 8.5-10.1 N BILIRUBIN TOTAL (test code = BILT) 0.80 mg/dL 0.0-1.0 N SGOT/AST (test code = AST) 20 IUnit/L 15-37 N SGPT/ALT (test code = ALT) 26 IUnit/L 12-78 N ALKALINE PHOSPHATASE TOTAL (test code = ALKP) 100 IUnit/L 45-117 N Note change in reference range due to change in reagent. [id number] 13:27:00* Test Item Value Reference Range Interpretation Comments DIGOXIN (test code = DIG) 0.4 ng/mL 0.90-2.0 L NO TE: Spironolactone interference may cause a decrease inreported Digoxin results of 11-30 %. B-TYPE NATRIURETIC [id number] 13:27:00* Test Item Value Reference Range Interpretation Comments B-TYPE NATRIURETIC PEPTIDE (test code = BNP) 1325.58 pgram/mL 0-100 H COMPREHENSIVE METABOLIC [id number] 13:06:00* Test Item Value Reference Range Interpretation Comments SODIUM (test code = NA) 141 mmol/L 136-145 N POTASSIUM (test code = K) 4.7 mmol/L 3.5-5.1 N CHLORIDE (test code = CL) 105.0 mmol/L 98-107 N CARBON DIOXIDE (test code = CO2) mmol/L 21-32 ANION GAP (test code = GAP) 10-20 GLUCOSE (test code = GLU) mg/dL 74-106 BLOOD UREA NITROGEN (test code = BUN) mg/dL 7-18 GLOMERULAR FILTRATION RATE (test code = GFR) mL/min >=60 CREATININE (test code = CREAT) mg/dL 0.7-1.3 BUN/CREATININE RATIO (test code = BUN/CREA) 10-20 TOTAL PROTEIN (test code = PROT) gram/dL 6.4-8.2 ALBUMIN (test code = ALB) g/dL 3.4-5.0 GLOBULIN (test code = GLOB) gram/dL 2.7-4.2 ALBUMIN/GLOBULIN RATIO (test code = A/G) 0.75-1.50 CALCIUM (test code = CA) mg/dL 8.5-10.1 BILIRUBIN TOTAL (test code = BILT) mg/dL 0.0-1.0 SGOT/AST (test code = AST) IUnit/L 15-37 SGPT/ALT (test code = ALT) IUnit/L 12-78 ALKALINE PHOSPHATASE TOTAL (test code = ALKP) IUnit/L 45-117 [id number] 13:06:00* Test Item Value Reference Range Interpretation Comments DIGOXIN (test code = DIG) ng/mL 0.90-2.0 CBC W/AUTO [id number] 12:56:00* Test Item Value Reference Range Interpretation Comments WHITE BLOOD CELL (test code = WBC) 9.6 K/mm3 4.5-12.5 N RED BLOOD CELL (test code = RBC) 4.61 mill/mm3 4.0-5.8 N HEMOGLOBIN (test code = HGB) 11.8 gram/dL 13.0-17.5 L HEMATOCRIT (test code = HCT) 40.6 % 42.0-52.0 L MEAN CELL VOLUME (test code = MCV) 88.1 fL 80-98 N MEAN CELL HGB (test code = MCH) 25.6 picogram 27.0-33.0 L MEAN CELL HGB CONCETRATION (test code = MCHC) 29.1 gram/dL 33.0-36. 0 L RED CELL DISTRIBUTION WIDTH (test code = RDW) 21.1 % 11.6-16. 2 H RED CELL DISTRIBUTION WIDTH SD (test code = RDW-SD) 66.6 fL 37 .0-51.0 H PLATELET COUNT (test code = PLT) 190 K/mm3 150-450 N MEAN PLATELET VOLUME (test code = MPV) 9.0 fL 6.7-11.0 N NEUTROPHIL % (test code = NT%) 75.9 % 39.0-69.0 H IMMATURE GRANULOCYTE % (test code = IG%) 4.7 % 0.0-5.0 N LYMPHOCYTE % (test code = LY%) 10.1 % 25.0-55.0 L MONOCYTE % (test code = MO%) 8.1 % 0.0-10.0 N EOSINOPHIL % (test code = EO%) 0.7 % 0.0-5.0 N BASOPHIL % (test code = BA%) 0.5 % 0.0-1.0 N NUCLEATED RBC % (test code = NRBC%) 0.0 % 0-0 N NEUTROPHIL # (test code = NT#) 7.26 K/mm3 1.8-7.7 N IMMATURE GRANULOCYTE # (test code = IG#) 0.45 x10 3/uL 0-0.03 H LYMPHOCYTE # (test code = LY#) 0.97 K/mm3 1.0-5.0 L MONOCYTE # (test code = MO#) 0.78 K/mm3 0-0.8 N EOSINOPHIL # (test code = EO#) 0.07 K/mm3 0.0-0.5 N BASOPHIL # (test code = BA#) 0.05 K/mm3 0.0-0.2 N NUCLEATED RBC # (test code = NRBC#) 0.00 K/mm3 0.0-0.1 N MANUAL DIFF REQUIRED (test code = MDIFF) NO, ONLY SCAN NEEDED DIFFERENTIAL [id number] 12:56:00* Test Item Value Reference Range Interpretation Comments STAIN ACCEPTABILITY (test code = STN ACCEPTABLE) MORPHOLOGY COMMENT (test code = MOC) PLATELET ESTIMATE (test code = PLTEST) PLATELET MORPHOLOGY (test code = PLTMORPH) CBC W/AUTO [id number] 12:55:00* Test Item Value Reference Range Interpretation Comments WHITE BLOOD CELL (test code = WBC) 9.6 K/mm3 4.5-12.5 N RED BLOOD CELL (test code = RBC) 4.61 mill/mm3 4.0-5.8 N HEMOGLOBIN (test code = HGB) 11.8 gram/dL 13.0-17.5 L HEMATOCRIT (test code = HCT) 40.6 % 42.0-52.0 L MEAN CELL VOLUME (test code = MCV) 88.1 fL 80-98 N MEAN CELL HGB (test code = MCH) 25.6 picogram 27.0-33.0 L MEAN CELL HGB CONCETRATION (test code = MCHC) 29.1 gram/dL 33.0-36. 0 L RED CELL DISTRIBUTION WIDTH (test code = RDW) 21.1 % 11.6-16. 2 H RED CELL DISTRIBUTION WIDTH SD (test code = RDW-SD) 66.6 fL 37 .0-51.0 H PLATELET COUNT (test code = PLT) 190 K/mm3 150-450 N MEAN PLATELET VOLUME (test code = MPV) 9.0 fL 6.7-11.0 N NEUTROPHIL % (test code = NT%) 75.9 % 39.0-69.0 H IMMATURE GRANULOCYTE % (test code = IG%) 4.7 % 0.0-5.0 N LYMPHOCYTE % (test code = LY%) 10.1 % 25.0-55.0 L MONOCYTE % (test code = MO%) 8.1 % 0.0-10.0 N EOSINOPHIL % (test code = EO%) 0.7 % 0.0-5.0 N BASOPHIL % (test code = BA%) 0.5 % 0.0-1.0 N NUCLEATED RBC % (test code = NRBC%) 0.0 % 0-0 N NEUTROPHIL # (test code = NT#) 7.26 K/mm3 1.8-7.7 N IMMATURE GRANULOCYTE # (test code = IG#) 0.45 x10 3/uL 0-0.03 H LYMPHOCYTE # (test code = LY#) 0.97 K/mm3 1.0-5.0 L MONOCYTE # (test code = MO#) 0.78 K/mm3 0-0.8 N EOSINOPHIL # (test code = EO#) 0.07 K/mm3 0.0-0.5 N BASOPHIL # (test code = BA#) 0.05 K/mm3 0.0-0.2 N NUCLEATED RBC # (test code = NRBC#) 0.00 K/mm3 0.0-0.1 N MANUAL DIFF REQUIRED (test code = MDIFF) NO, ONLY SCAN NEEDED DIFFERENTIAL [id number] 12:55:00* Test Item Value Reference Range Interpretation Comments STAIN ACCEPTABILITY (test code = STN ACCEPTABLE) CABOT RINGS (test code = CAB) MORPHOLOGY COMMENT (test code = MOC) PLATELET ESTIMATE (test code = PLTEST) PLATELET MORPHOLOGY (test code = PLTMORPH) CBC W/AUTO [id number] 12:55:00* Test Item Value Reference Range Interpretation Comments WHITE BLOOD CELL (test code = WBC) 9.6 K/mm3 4.5-12.5 N RED BLOOD CELL (test code = RBC) 4.61 mill/mm3 4.0-5.8 N HEMOGLOBIN (test code = HGB) 11.8 gram/dL 13.0-17.5 L HEMATOCRIT (test code = HCT) 40.6 % 42.0-52.0 L MEAN CELL VOLUME (test code = MCV) 88.1 fL 80-98 N MEAN CELL HGB (test code = MCH) 25.6 picogram 27.0-33.0 L MEAN CELL HGB CONCETRATION (test code = MCHC) 29.1 gram/dL 33.0-36. 0 L RED CELL DISTRIBUTION WIDTH (test code = RDW) 21.1 % 11.6-16. 2 H RED CELL DISTRIBUTION WIDTH SD (test code = RDW-SD) 66.6 fL 37 .0-51.0 H PLATELET COUNT (test code = PLT) 190 K/mm3 150-450 N MEAN PLATELET VOLUME (test code = MPV) 9.0 fL 6.7-11.0 N NEUTROPHIL % (test code = NT%) 75.9 % 39.0-69.0 H IMMATURE GRANULOCYTE % (test code = IG%) 4.7 % 0.0-5.0 N LYMPHOCYTE % (test code = LY%) 10.1 % 25.0-55.0 L MONOCYTE % (test code = MO%) 8.1 % 0.0-10.0 N EOSINOPHIL % (test code = EO%) 0.7 % 0.0-5.0 N BASOPHIL % (test code = BA%) 0.5 % 0.0-1.0 N NUCLEATED RBC % (test code = NRBC%) 0.0 % 0-0 N NEUTROPHIL # (test code = NT#) 7.26 K/mm3 1.8-7.7 N IMMATURE GRANULOCYTE # (test code = IG#) 0.45 x10 3/uL 0-0.03 H LYMPHOCYTE # (test code = LY#) 0.97 K/mm3 1.0-5.0 L MONOCYTE # (test code = MO#) 0.78 K/mm3 0-0.8 N EOSINOPHIL # (test code = EO#) 0.07 K/mm3 0.0-0.5 N BASOPHIL # (test code = BA#) 0.05 K/mm3 0.0-0.2 N NUCLEATED RBC # (test code = NRBC#) 0.00 K/mm3 0.0-0.1 N MANUAL DIFF REQUIRED (test code = MDIFF) NO, ONLY SCAN NEEDED DIFFERENTIAL [id number] 12:55:00* Test Item Value Reference Range Interpretation Comments STAIN ACCEPTABILITY (test code = STN ACCEPTABLE) MORPHOLOGY COMMENT (test code = MOC) PLATELET ESTIMATE (test code = PLTEST) PLATELET MORPHOLOGY (test code = PLTMORPH) CBC W/AUTO [id number] 12:55:00* Test Item Value Reference Range Interpretation Comments WHITE BLOOD CELL (test code = WBC) 9.6 K/mm3 4.5-12.5 N RED BLOOD CELL (test code = RBC) 4.61 mill/mm3 4.0-5.8 N HEMOGLOBIN (test code = HGB) 11.8 gram/dL 13.0-17.5 L HEMATOCRIT (test code = HCT) 40.6 % 42.0-52.0 L MEAN CELL VOLUME (test code = MCV) 88.1 fL 80-98 N MEAN CELL HGB (test code = MCH) 25.6 picogram 27.0-33.0 L MEAN CELL HGB CONCETRATION (test code = MCHC) 29.1 gram/dL 33.0-36. 0 L RED CELL DISTRIBUTION WIDTH (test code = RDW) 21.1 % 11.6-16. 2 H RED CELL DISTRIBUTION WIDTH SD (test code = RDW-SD) 66.6 fL 37 .0-51.0 H PLATELET COUNT (test code = PLT) 190 K/mm3 150-450 N MEAN PLATELET VOLUME (test code = MPV) 9.0 fL 6.7-11.0 N NEUTROPHIL % (test code = NT%) 75.9 % 39.0-69.0 H IMMATURE GRANULOCYTE % (test code = IG%) 4.7 % 0.0-5.0 N LYMPHOCYTE % (test code = LY%) 10.1 % 25.0-55.0 L MONOCYTE % (test code = MO%) 8.1 % 0.0-10.0 N EOSINOPHIL % (test code = EO%) 0.7 % 0.0-5.0 N BASOPHIL % (test code = BA%) 0.5 % 0.0-1.0 N NUCLEATED RBC % (test code = NRBC%) 0.0 % 0-0 N NEUTROPHIL # (test code = NT#) 7.26 K/mm3 1.8-7.7 N IMMATURE GRANULOCYTE # (test code = IG#) 0.45 x10 3/uL 0-0.03 H LYMPHOCYTE # (test code = LY#) 0.97 K/mm3 1.0-5.0 L MONOCYTE # (test code = MO#) 0.78 K/mm3 0-0.8 N EOSINOPHIL # (test code = EO#) 0.07 K/mm3 0.0-0.5 N BASOPHIL # (test code = BA#) 0.05 K/mm3 0.0-0.2 N NUCLEATED RBC # (test code = NRBC#) 0.00 K/mm3 0.0-0.1 N MANUAL DIFF REQUIRED (test code = MDIFF) NO, ONLY SCAN NEEDED DIFFERENTIAL [id number] 12:55:00* Test Item Value Reference Range Interpretation Comments STAIN ACCEPTABILITY (test code = STN ACCEPTABLE) CABOT RINGS (test code = CAB) MORPHOLOGY COMMENT (test code = MOC) PLATELET ESTIMATE (test code = PLTEST) PLATELET MORPHOLOGY (test code = PLTMORPH) US GUIDED [id number] 12:19:00 [place] [address] Patient Name: ELVIS LIPSCOMB MR #: [id number] : 1940 Age/Sex: 78/M Req #: [id number] Adm Physician: Ordered by: YENI STEPHENS MD Report #: [id number] Location: Room/Bed: Procedure: [id number] US/US GUIDED PARACENTESIS Exam Date: 07/23/18 Exam Time: 1047 REPORT STATUS: Signed EXAM: Ultrasound-guided paracentesis DATE: 07/23/2018 10:04 AM INDICATION: CHF with ascites COMPARISON: None PROCEDURES PERFORMED: Ultrasound g uided paracentesis Ultrasound images archived in PACS. Anesthesia: Loc al, 1% lidocaine Devices: 5-Nepalese centesis needle PROCEDURE REPORT: After informed consent was obtained, ultrasound was utilized to identify the largest pocket of ascitic fluid in the left mid abdomen. A safe entry route was identified and the overlying skin was prepped and draped in usual sterile fashion. Lidocaine1% was used for local anesthesia. Under ultrasound guidan ce, a 5 Nepalese Yueh centesis needle was advanced into the ascites in the left side of the abdomen. A total of 1,200 cc were aspirated without complicatio n. The catheter was removed and a dressing applied to the skin. Complica tions: None Blood loss: Minimal, less than 1cc Samples: 1,200 cc of fluid se nt to the laboratory for analysis Patient disposition: Stable IMPRESSION: Uncomplicated ultrasound guided paracentesis with removal of 1,200 cc. S igned by: Dr. Jerry Harrell DO on 07/23/2018 12:26 PM Dictated By: JERRY HARRELL DO 1226 Transcr ibed By: MUNDO on 07/23/18 1226 COPY TO: YENI STEPHENS MD BONE and/or JOINT WHOLE [id number] 19:55:00 [place] [address] Patient Name: ELVIS LIPSCOMB MR #: [id number] : 1940 Age/Sex: 78/M Req #: [id number] Adm Physician: RUBI STEWART MD Ordered by: YENI STEPHENS MD Report #: [id number] Location: [facility] Room/Bed: [place] [address] Procedure: [id number] NM/BONE and/or JOINT WHOLE BODY Exam Date: 07/19/18 Exam Time: 1000 REPORT STATUS: Sig harish Bone Scan, delayed phase INDICATION: 78 M diabetic with referred ab dominal pain; loss of appetite, [place] in 04/2018, CHF and ascites. COMPARISO N: CT abdo/pelvis 07/13/2018 REPORT: Approximately 3 hours following intraven ous administration of 26 mCi of Tc-99m MDP, delayed total body images in the a nterior and posterior projections and selected spot images were obtained. Distribution of tracer activity is unremarkable throughout the skeletal syste m. Ascites is present.. No abnormal accumulation of tracer is seen i n the renal collecting system. IMPRESSION: No scan evidence of meta static or metabolic bone disease. Signed by: Dr. Steffany Carbone M.D. on 2018 8:01 PM Dictated By: STEFFANY CARBONE MD 00 Transcribed By: MUNDO on 07/19/182000 COPY TO: YENI STEPHENS MD Bedside [id number] 16:29:00* Test Item Value Reference Range Interpretation Comments Bedside Glucose (test code = 75651-6) 96 70-120 Meter ID: [id number] [facility] HospitalProstate Specific [id number] 04:30:00* Test Item Value Reference Range Interpretation Comments Prostate Specific Antigen (test code = 2857-1) 1.0 0.0-4.0 Arielle ECLIA methodology.According to the [employer], Serum PSAshould decrease and remain at undetectable levels afterradical prostatectomy. The AUA defines biochemicalrecurrence as an initial PSA value 0.2 ng/mL or grea terfollowed by a subsequent confirmatory PSA value 0.2 ng/mLor greater. Values o btained with different assay methods orkits cannot be used interchangeably. Resu lts cannot beinterpreted as absolute evidence of the presence or absenceof malig nant disease.Performed at: [facility] [id number] Director: Keith Matthew MD, Phone: [phone] [facility]US ABD[facility]EN [id number] 19:06:00 [place] [address] Patient Name: ELVIS LIPSCOMB MR #: [id number] : 1940 Age/Sex: 78/M Req #: [id number] Adm Physician: RUBI STEWART MD Ordered by: MARICHUY TORERS MD Report #: [id number] Location: [facility] Room/Bed: [place] [address] Procedure: [id number] U S/US ABDOMEN LIMITED Exam Date: 07/18/18 Exam Time: 1709 REPORT STATUS: Signed EXAM: Right Upper Quadrant Ultrasound INDICATION: Ascites. Unknown cause. COMPARISON: Abdominal ultrasound 07/18/2018. TECHNIQUE: Transverse and longitu dinal images of the right upper abdomen were obtained. FINDINGS: Moderate amount of ascites in all 4 quadrants of the abdomen with the largest pocket in the left upper quadrant. IMPRESSION: Moderate ascites. Signed by: Dr. Nathan Kumar M.D. on 07/18/2018 7:07 PM Dictated By: NATHAN KUMAR MD 06 Transcribed By: MUNDO on 07/18/181906 COPY TO: MARICHUY TORRES MD US PELVIS COMPLETE NON [id number] 11:48:00 [place] [address] Patient Name: ELVIS LIPSCOMB MR #: [id number] : 1940 Age/Sex: 78/M Req #: [id number] Adm Physician: RUBI STEWART MD Ordered by: YENI STEPHENS MD Report #: [id number] Location: [facility] Room/Bed: [address] Procedure: [id number] US/US PELVIS COMPLETE NON OB Exam Date: 07/18/18 Ex am Time: 1020 REPORT STATUS: Signed EXAM: US ABDOMEN COMPLETE, US PELVIS COMPLETE NON OB INDICATION: Abdo ryanne pain. COMPARISON: CT abdomen/pelvis 07/13/2018. TECHNIQUE: Transve rse and longitudinal swain scale and color doppler sonographic images of the ab domen and pelvis were obtained. FINDINGS: Exam is somewhat limited du e to bowel gas. LIVER 15.3 cm in the right midclavicular line. Increas ed echogenicity of the liver with normal contour, no masses. SPLEEN 13.1 cm in maximum diameter. Normal echogenicity, no masses. GALLBLADDER Sta tus post cholecystectomy. BILE DUCTS No intra nor extra-hepatic biliary dilation. Common bile duct measures 0.5cm PANCREAS: Not well seen due to overlying gas. RIGHT KIDNEY: 10.8 cm Echogenicity: Normal Collecting Sy stem: No hydronephrosis Stones: None Cyst/Mass: No evidence of solid mass. There is a 2.1 cm simple appearing exophytic anechoic right renal cyst. LEFT KIDNEY: 11.4 cm Echogenicity: Normal Collecting System: No hydronephro sis Stones: None Cyst/Mass: None BLADDER: Decompressed and incomplet theresa evaluated. Bladder volume 16.6 cc. VESSELS: Aorta: Not well seen due to overlying gas. Inferior Vena Cava: Not well seen due to overlying gas. M ain Portal Vein: 0.8 cm, normal size with hepatopetal flow. FREE FLUID: Sma ll amount of ascites in the right upper quadrant and moderate volume ascites w ithin the right lower quadrant and left lower quadrant. IMPRESSION: Hepat ic steatosis. Liver size measures at the upper limits of normal. Moderate volume ascites. Status post cholecystectomy. Simple appearing right re nal cyst. Signed by: Dr. Corby Heck MD on 07/18/2018 11:57 AM Dictat ed By: CORBY HECK MD 56 Transcribed By: MUNDO on 07/18/181156 COPY TO: YENI STEPHENS MD US ABDOMEN [id number] 11:48:00 [place] [address] Patient Name: ELVIS LIPSCOMB MR #: [id number] : 1940 Age/Sex: 78/M Req #: [id number] Adm Physician: RUBI STEWART MD Ordered by: YENI STEPHENS MD Report #: [id number] Location: [facility] Room/Bed: [place] [address] Procedure: [id number] US/US ABDOMEN COMPLETE Exam Date: 07/18/18 Exam Felix e: 1000 REPORT STATUS: Signed EX AM: US ABDOMEN COMPLETE, US PELVIS COMPLETE NON OB INDICATION: Abdominal pain. COMPARISON: CT abdomen/pelvis 07/13/2018. TECHNIQUE: Transverse an d longitudinal swain scale and color doppler sonographic images of the abdomen and pelvis were obtained. FINDINGS: Exam is somewhat limited due to b owel gas. LIVER 15.3 cm in the right midclavicular line. Increased ech ogenicity of the liver with normal contour, no masses. SPLEEN 13.1 cm in maximum diameter. Normal echogenicity, no masses. GALLBLADDER Status po st cholecystectomy. BILE DUCTS No intra nor extra-hepatic biliary dilati on. Common bile duct measures 0.5cm PANCREAS: Not well seen due to overly ing gas. RIGHT KIDNEY: 10.8 cm Echogenicity: Normal Collecting System: No hydronephrosis Stones: None Cyst/Mass: No evidence of solid mass. There is a 2.1 cm simple appearing exophytic anechoic right renal cyst. LEFT K IDNEY: 11.4 cm Echogenicity: Normal Collecting System: No hydronephrosis Stones: None Cyst/Mass: None BLADDER: Decompressed and incompletely ev aluated. Bladder volume 16.6 cc. VESSELS: Aorta: Not well seen due to ov erlying gas. Inferior Vena Cava: Not well seen due to overlying gas. Main Po rtal Vein: 0.8 cm, normal size with hepatopetal flow. FREE FLUID: Small jake unt of ascites in the right upper quadrant and moderate volume ascites within the right lower quadrant and left lower quadrant. IMPRESSION: Hepatic angelo atosis. Liver size measures at the upper limits of normal. Moderate volume ascites. Status post cholecystectomy. Simple appearing right renal cy st. Signed by: Dr. Corby Heck MD on 07/18/2018 11:57 AM Dictated By: CORBY HECK MD 1157 Transc ribed By: MUNDO on 07/18/18 1152 COPY TO: YENI STEPHENS MD CHEST (INCL MEDIASTINUM)2018-07-18 11:32:00 [place] [address] Patient Name: ELVIS LIPSCOMB MR #: [id number] : 1940 Age/Sex: 78/M Req #: [id number] Adm Physician: RUBI STEWART MD Ordered by: YENI STEPHENS MD Report #: [id number] Location: [facility] Room/Bed: [place] [address] Procedure: [id number] US/US CHEST (INCL MEDIASTINUM) Exam Date: 07/18/18 Exam Time: 0949 REPORT STATUS: Sign ed Limited bilateral chest ultrasound History: Evaluate size of known pl eural effusions. Comparison: Chest radiograph 07/17/2018. Technique/f indings: Limited bilateral chest ultrasound was performed to evaluate for pleu ral effusion. Bilateral small pleural effusions are identified. IMPRESSIO N: Bilateral small pleural effusions. Signed by: Dr. Corby Heck MD on 11:37 AM Dictated By: CORBY HECK MD 1137 Transcribed By: MUNDO on 07/18/18 1137 CO PY TO: YENI STEPHENS MD Sodium [id number] 06:16:00* Test Item Value Reference Range Interpretation Comments Sodium Level (test code = 2951-2) 138 136-145 [facility] [id number] 06:16:00* Test Item Value Reference Range Interpretation Comments Potassium Level (test code = 2823-3) 3.8 3.5-5.1 [facility] [id number] 06:16:00* Test Item Value Reference Range Interpretation Comments Chloride Level (test code = 2075-0) 103 98-107 [facility] D[facility]ide [id number] 06:16:00* Test Item Value Reference Range Interpretation Comments Carbon Dioxide Level (test code = 2028-9) 25 22-29 [facility] [id number] 06:16:00* Test Item Value Reference Range Interpretation Comments Anion Gap (test code = 18014-0) 13.8 8-16 [facility] Urea [id number] 06:16:00* Test Item Value Reference Range Interpretation Comments Blood Urea Nitrogen (test code = 3094-0) 19 7-26 [facility] [facility]00* Test Item Value Reference Range Interpretation Comments Creatinine (test code = 2160-0) 0.93 0.72-1.25 [facility]/Creatinine Sokxh3189-83-09 06:16:00* Test Item Value Reference Range Interpretation Comments BUN/Creatinine Ratio (test code = 3097-3) 20 6-25 [facility] HospitalEstimat Glomerular Filtration Rate 2018-07-18 06:16:00* Test Item Value Reference Range Interpretation Comments Estimat Glomerular Filtration Rate (test code = 081795108) > 60 >60 Ranges were taken from the National Kidney Disease Education Program and the [facility] literature.Reference ranges:60 or greater: Yebjwa07-63 ( for 3 consecutive months): Chronic kidney disease 15 or less: Kidney failureFormerly [facility] HospitalGlucose Azixk9170-80-54 06:16:00* Test Item Value Reference Range Interpretation Comments Glucose Level (test code = TOM8500) 170 74-118 H [facility] HospitalCalcium Evzyu8788-67-43 06:16:00* Test Item Value Reference Range Interpretation Comments Calcium Level (test code = 84460-5) 7.8 8.4-10.2 L [facility] HospitalWhite Blood Tjief7682-37-38 06:11:00* Test Item Value Reference Range Interpretation Comments White Blood Count (test code = 6690-2) 3.50 4.8-10.8 L [facility] HospitalRed Blood Aeztv7577-50-21 06:11:00* Test Item Value Reference Range Interpretation Comments Red Blood Count (test code = 789-8) 3.97 4.3-5.7 L [facility] HospitalHemoglobin2019-03-13 06:11:00* Test Item Value Reference Range Interpretation Comments Hemoglobin (test code = 89859-1) 9.7 14.0-18.0 L [facility] HospitalHematocrit2019-03-13 06:11:00* Test Item Value Reference Range Interpretation Comments Hematocrit (test code = 4544-3) 32.9 38.2-49.6 L [facility] HospitalMean Corpuscular Conegp2656-79-64 06:11:00* Test Item Value Reference Range Interpretation Comments Mean Corpuscular Volume (test code = 787-2) 82.9 81-99 [facility] HospitalMean Corpuscular Xrmgsshqbu1326-63-57 06:11:00* Test Item Value Reference Range Interpretation Comments Mean Corpuscular Hemoglobin (test code = 785-6) 24.4 28-32 L [facility] HospitalMean Corpuscular Hemoglobin Concent 2018-07-18 06:11:00* Test Item Value Reference Range Interpretation Comments Mean Corpuscular Hemoglobin Concent (test code = 786-4) 29.5 31-35 L [facility] HospitalRed Cell Distribution Pyzta7189-46-59 06:11:00* Test Item Value Reference Range Interpretation Comments Red Cell Distribution Width (test code = 38739-7) 22.6 11.7 -14.4 H [facility] HospitalPlatelet Mfelf8098-95-92 06:11:00* Test Item Value Reference Range Interpretation Comments Platelet Count (test code = 777-3) 167 140-360 [facility] HospitalNeutrophils (%) (Auto)2018-07-18 06:11:00 * Test Item Value Reference Range Interpretation Comments Neutrophils (%) (Auto) (test code = 90826-0) 89.1 38.7-80.0 H [facility] HospitalLymphocytes (%) (Auto)2018-07-18 06:11:00 * Test Item Value Reference Range Interpretation Comments Lymphocytes (%) (Auto) (test code = 736-9) 7.4 18.0-39.1 L [facility] HospitalMonocytes (%) (Auto)2018-07-18 06:11:00* Test Item Value Reference Range Interpretation Comments Monocytes (%) (Auto) (test code = 5905-5) 2.6 4.4-11.3 L [facility] HospitalEosinophils (%) (Auto)2018-07-18 06:11:00 * Test Item Value Reference Range Interpretation Comments Eosinophils (%) (Auto) (test code = 713-8) 0.0 0.0-6.0 [facility] HospitalBasophils (%) (Auto)2018-07-18 06:11:00* Test Item Value Reference Range Interpretation Comments Basophils (%) (Auto) (test code = 706-2) 0.3 0.0-1.0 [facility] HospitalIM GRANULOCYTES %2018-07-18 06:11:00* Test Item Value Reference Range Interpretation Comments IM GRANULOCYTES % (test code = IM GRANULOCYTES %) 0.6 0.0- 1.0 [facility] HospitalNeutrophils # (Auto)2018-07-18 06:11:00* Test Item Value Reference Range Interpretation Comments Neutrophils # (Auto) (test code = 751-8) 3.1 2.1-6.9 [facility] HospitalLymphocytes # (Auto)2018-07-18 06:11:00* Test Item Value Reference Range Interpretation Comments Lymphocytes # (Auto) (test code = 74180-5) 0.3 1.0-3.2 L [facility] HospitalMonocytes # (Auto)2018-07-18 06:11:00* Test Item Value Reference Range Interpretation Comments Monocytes # (Auto) (test code = 742-7) 0.1 0.2-0.8 L [facility] HospitalEosinophils # (Auto)2018-07-18 06:11:00* Test Item Value Reference Range Interpretation Comments Eosinophils # (Auto) (test code = 711-2) 0.0 0.0-0.4 [facility] HospitalBasophils # (Auto)2018-07-18 06:11:00* Test Item Value Reference Range Interpretation Comments Basophils # (Auto) (test code = 704-7) 0.0 0.0-0.1 [facility] HospitalAbsolute Immature Granulocyte (auto 2018-07-18 06:11:00* Test Item Value Reference Range Interpretation Comments Absolute Immature Granulocyte (auto (jacqueline t code = Absolute Immature Granulocyte (auto)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 Reference Range Interpretation Comments Estimat Glomerular Filtration Rate (test code = 755466738) 60- >60 Ranges were taken from the National Kidney Disease Education Program and the [facility] literature.Reference ranges:60 or greater: Iqisvz43-02 ( for 3 consecutive months): Chronic kidney disease 15 or less: Kidney failureFormerly [facility] HospitalGlucose Pyqpe6202-66-22 05:05:00* Test Item Value Reference Range Interpretation Comments Glucose Level (test code = LKU6722) 118 74-118 [facility] HospitalCalcium Tlibm4452-36-27 05:05:00* Test Item Value Reference Range Interpretation Comments Calcium Level (test code = 34073-2) 8.5 8.4-10.2 [facility] HospitalWhite Blood Oymlx7587-07-16 04:47:00* Test Item Value Reference Range Interpretation Comments White Blood Count (test code = 6690-2) 7.49 4.8-10.8 [facility] HospitalRed Blood Fsivm1085-48-87 04:47:00* Test Item Value Reference Range Interpretation Comments Red Blood Count (test code = 789-8) 4.15 4.3-5.7 L [facility] HospitalHemoglobin2018-10-01 04:47:00* Test Item Value Reference Range Interpretation Comments Hemoglobin (test code = 69342-0) 11.4 14.0-18.0 L [facility] HospitalHematocrit2018-10-01 04:47:00* Test Item Value Reference Range Interpretation Comments Hematocrit (test code = 4544-3) 35.0 38.2-49.6 L [facility] HospitalMean Corpuscular Ugwsys3018-78-96 04:47:00* Test Item Value Reference Range Interpretation Comments Mean Corpuscular Volume (test code = 787-2) 84.3 81-99 [facility] HospitalMean Corpuscular Nrlgkaqeoo0267-65-78 04:47:00* Test Item Value Reference Range Interpretation Comments Mean Corpuscular Hemoglobin (test code = 785-6) 27.5 28-[address] [facility] Hem[facility] Concent 2018-02-05 04:47:00* Test Item Value Reference Range Interpretation Comments Mean Corpuscular Hemoglobin Concent (test code = 786-4) 32.6 31-35 [facility] HospitalRed Cell Distribution Ozvgm9007-80-31 04:47:00* Test Item Value Reference Range Interpretation Comments Red Cell Distribution Width (test code = 87161-8) 15.6 11.7 -14.4 H [facility] HospitalPlatelet Fclnz9197-58-98 04:47:00* Test Item Value Reference Range Interpretation Comments Platelet Count (test code = 777-3) 156 140-360 [facility] HospitalNeutrophils (%) (Auto)2018-02-05 04:47:00 * Test Item Value Reference Range Interpretation Comments Neutrophils (%) (Auto) (test code = 25399-1) 76.8 38.7-80.0 [facility] HospitalLymphocytes (%) (Auto)2018-02-05 04:47:00 * Test Item Value Reference Range Interpretation Comments Lymphocytes (%) (Auto) (test code = 736-9) 10.3 18.0-39.1 L [facility] HospitalMonocytes (%) (Auto)2018-02-05 04:47:00* Test Item Value Reference Range Interpretation Comments Monocytes (%) (Auto) (test code = 5905-5) 10.8 4.4-11.3 [facility] HospitalEosinophils (%) (Auto)2018-02-05 04:47:00 * Test Item Value Reference Range Interpretation Comments Eosinophils (%) (Auto) (test code = 713-8) 1.2 0.0-6.0 [facility] HospitalBasophils (%) (Auto)2018-02-05 04:47:00* Test Item Value Reference Range Interpretation Comments Basophils (%) (Auto) (test code = 706-2) 0.4 0.0-1.0 [facility] HospitalIM GRANULOCYTES %2018-02-05 04:47:00* Test Item Value Reference Range Interpretation Comments IM GRANULOCYTES % (test code = IM GRANULOCYTES %) 0.5 0.0- 1.0 [facility] HospitalNeutrophils # (Auto)2018-02-05 04:47:00* Test Item Value Reference Range Interpretation Comments Neutrophils # (Auto) (test code = 751-8) 5.8 2.1-6.9 [facility] HospitalLymphocytes # (Auto)2018-02-05 04:47:00* Test Item Value Reference Range Interpretation Comments Lymphocytes # (Auto) (test code = 57210-5) 0.8 1.0-3.2 L [facility] HospitalMonocytes # (Auto)2018-02-05 04:47:00* Test Item Value Reference Range Interpretation Comments Monocytes # (Auto) (test code = 742-7) 0.8 0.2-0.8 [facility] HospitalEosinophils # (Auto)2018-02-05 04:47:00* Test Item Value Reference Range Interpretation Comments Eosinophils # (Auto) (test code = 711-2) 0.1 0.0-0.4 [facility] HospitalBasophils # (Auto)2018-02-05 04:47:00* Test Item Value Reference Range Interpretation Comments Basophils # (Auto) (test code = 704-7) 0.0 0.0-0.1 [facility] HospitalAbsolute Immature Granulocyte (auto 2018-02-05 04:47:00* Test Item Value Reference Range Interpretation Comments Absolute Immature Granulocyte (auto (jacqueline t code = Absolute Immature Granulocyte (auto) 0.04 0-0.1 [facility] HospitalCHEST SINGLE (PORTABLE)2018-02-03 08:15:00 [place] [address] Patient Name: ELVIS LIPSCOMB MR #: [id number] : 1940 Age/Sex: 77/M Req #: [id number] Adm Physician: AIDEN CABELLO MD Ordered by: AIDEN CABELLO MD Report #: [id number] Location: ICU Room/Bed: ICU [facility] Procedure: DX /CHEST SINGLE (PORTABLE) Exam Date: 02/03/18 Exam Ti me: 0715 REPORT STATUS: Signed EXAM: XR CHEST 1 VIEW DATE: 02/04/20 7:08 AM INDICATION: Altered mental status, atrial fibrillation COM PARISON: None FINDINGS: Lines and Tubes: Dual-lead left chest wall pac emaker with leads overlying right atrium and right ventricle. Heart and M ediastinum: Accentuated by low lung volumes. Lungs and Pleura: Ill-defined opacities lung bases. Bones and Soft Tissues: No acute findings. IMPRE SSION: 1. Expiratory exam with probable basilar atelectasis. Mild edema or i nfectious process difficult to exclude. Signed by: Dr. Helio Kelly MD o n 02/03/2018 8:15 AM Dictated By: HELIO KELLY MD 4 Transcribed By: MUNDO on 02/03/18814 COPY TO: AIDEN CABELLO MD CT BRAIN IW4669-31-31 08:05:00 [place] [address] Patient Name: ELVIS LIPSCOMB MR #: [id number] : 1940 Age/Sex: 77/M Req #: [id number] Adm Physician: AIDEN CABELLO MD Ordered by: AIDEN CABELLO MD Report #: [id number] Loca tion: ICU Room/Bed: ICU 192-1 Procedure: [id number] CT /CT BRAIN WO Exam Date: 02/03/18 Exam Time: 0715 REPORT STATUS: Signed History:AMS, A. fib Comparison studies:None T echnique: Axial images were obtained from the skull base to the vertex. Jenny nal and sagittal images reconstructed from the axial data. Intravenous contras t: None Dose modulation, iterative reconstruction, and/or weight based adjustm ent of the mA/kV was utilized to reduce the radiation dose to as low as reason ably achievable. Findings: Scalp/skull: No abnormalities. Ex tra-axial spaces: No masses. No fluid collections. Brain sulci: Mildly prominent. Ventricles: Mild compensatory dilatation. No hydrocephalus. Pa renchyma: Scattered small hypodensities in the supratentorial white matter ar e small vessel ischemic changes. Chronic lacunar infarcts at the right striato capsular and right subinsular region. No masses, hemorrhage, acute or chronic cortical vascular insults. Sellar/suprasellar region: No abnormalities. Craniocervical junction: Patent foramen magnum. No Chiari one malformation. Incidental findings: Atherosclerotic calcifications in the carotid siphons . Patent bilateral eye lenses. Metallic foreign bodies at the left superola teral orbit, with surrounding beam hardening artifact. Impression: No acute abnormalities. Chronic findings: 1. Mild generalized volume los s. 2. Mild supratentorial white matter small vessel ischemic changes. Si gned by: DR Kervin Alves M.D. on 02/03/2018 8:10 AM Dictated By: KERVIN MURGUIA MD 0810 COPY TO: AIDEN CABELLO MD Total Tynrzaxfe8620-20-07 07:35:00* Test Item Value Reference Range Interpretation Comments Total Bilirubin (test code = 1975-2) 0.8 0.2-1.2 [facility] HospitalAspartate Amino Transf (AST/SGOT) 2018-02-03 07:35:00* Test Item Value Reference Range Interpretation Comments Aspartate Amino Transf (AST/SGOT) (test code = Aspartate Amino Transf (AST/SGOT)) 33 5-34 [facility] HospitalAlanine Aminotransferase (ALT/SGPT) 2018-02-03 07:35:00* Test Item Value Reference Range Interpretation Comments Alanine Aminotransferase (ALT/SGPT) (test code = 1742-6) 36 0-55 [facility] HospitalTotal Gjfjnrk8285-11-01 07:35:00* Test Item Value Reference Range Interpretation Comments Total Protein (test code = 2885-2) 5.3 6.5-8.1 L [facility] HospitalAlbumin2018-09-29 07:35:00* Test Item Value Reference Range Interpretation Comments Albumin (test code = 1751-7) 3.3 3.5-5.0 L [facility] HospitalGlobulin2018-09-29 07:35:00* Test Item Value Reference Range Interpretation Comments Globulin (test code = 93480-2) 2.0 2.3-3.5 L [facility] HospitalAlbumin/Globulin Kkdgp7469-43-85 07:35:00 * Test Item Value Reference Range Interpretation Comments Albumin/Globulin Ratio (test code = 1759-0) 1.7 0.8-2.0 [facility] HospitalAlkaline Urlqsjzufkl2607-08-75 07:35:00* Test Item Value Reference Range Interpretation Comments Alkaline Phosphatase (test code = 6768-6) 50 40-150 [facility] HospitalAmylase Sepqs2997-27-60 07:35:00* Test Item Value Reference Range Interpretation Comments Amylase Level (test code = 1798-8) 45 25-125 [facility] HospitalAmylase Rrpxs0129-69-90 07:35:00* Test Item Value Reference Range Interpretation Comments Amylase Level (test code = 1798-8) 45 25-125 [facility] HospitalAmylase Jnlco9165-52-36 07:35:00* Test Item Value Reference Range Interpretation Comments Amylase Level (test code = 1798-8) 45 25-125 [facility] HospitalAmylase Wixiu3102-37-80 07:35:00* Test Item Value Reference Range Interpretation Comments Amylase Level (test code = 1798-8) 45 25-125 [facility] HospitalAmylase Zjjno4562-52-86 07:35:00* Test Item Value Reference Range Interpretation Comments Amylase Level (test code = 1798-8) 45 25-125 [facility] Aowcobh0318-86-74 20:20:00* Test Item Value Reference Range Interpretation Comments Blood Culture (test code = 51072523) NO GROWTH AFTER 5 DAYS, FINAL REPORT [facility] Sizzmqd4677-54-27 20:20:00* Test Item Value Reference Range Interpretation Comments Blood Culture (test code = 68338978) NO GROWTH AFTER 5 DAYS, FINAL REPORT [facility] Dpehoqs6467-10-25 20:20:00* Test Item Value Reference Range Interpretation Comments Blood Culture (test code = 96377191) NO GROWTH AFTER 5 DAYS, FINAL REPORT [facility] Uylduao3731-84-03 20:20:00* Test Item Value Reference Range Interpretation Comments Blood Culture (test code = 10253957) NO GROWTH AFTER 5 DAYS, FINAL REPORT [facility] Xsrkcau6260-03-38 20:20:00* Test Item Value Reference Range Interpretation Comments Blood Culture (test code = 93513834) NO GROWTH AFTER 5 DAYS, FINAL REPORT [facility] HospitalProthrombin Kkdg1720-64-56 06:13:00* Test Item Value Reference Range Interpretation Comments Prothrombin Time (test code = 5902-2) 15.0 11.9-14.5 H [facility] HospitalProthromb Time International Ratio 2018-02-01 06:13:00* Test Item Value Reference Range Interpretation Comments Prothromb Time International Ratio (test code = 6301-6) 1.08 Oral Anticoagulant Therapy INR Values:1. Low Intensity Therapy 1.5 - 2.02 . Moderate Intensity Therapy 2.0 - 3.03. High Intensity Therapy(1) 2.5 - 3. 54. High Intensity Therapy(2) 3.0 - 4.05. Panic Value INR > 5.0 [facility] HospitalCreatine Kinase BQ6274-64-27 16:49:00* Test Item Value Reference Range Interpretation Comments Creatine Kinase MB (test code = 72603-3) 3.80 0-5.0 [facility] HospitalTroponin M4189-75-57 16:49:00* Test Item Value Reference Range Interpretation Comments Troponin I (test code = AYP1133) 0.004 0-0.300 [facility] HospitalCreatine Kinase YP8391-06-81 16:49:00* Test Item Value Reference Range Interpretation Comments Creatine Kinase MB (test code = 82528-0) 3.80 0-5.0 [facility] HospitalCreatine Hrkotz2050-26-26 16:42:00* Test Item Value Reference Range Interpretation Comments Creatine Kinase (test code = 2157-6) 218 30-200 H [facility] HospitalCreatine Ozyscv2505-78-82 16:42:00* Test Item Value Reference Range Interpretation Comments Creatine Kinase (test code = 2157-6) 218 30-200 H [facility] HospitalUrine KKX0009-88-70 15:27:00* Test Item Value Reference Range Interpretation Comments Urine WBC (test code = 5821-4) NONE 0-5 [facility] HospitalUrine NIZ3393-66-80 15:27:00* Test Item Value Reference Range Interpretation Comments Urine RBC (test code = 96666-7) NONE 0-5 [facility] Vucnfsrb9116-52-60 15:27:00* Test Item Value Reference Range Interpretation Comments Urine Bacteria (test code = 36208-5) NONE NONE [facility] Epithelial Gccav1203-93-43 15:27:00 * Test Item Value Reference Range Interpretation Comments Urine Epithelial Cells (test code = 23046-8) RARE NONE [facility] Wkitu7444-80-15 15:17:00* Test Item Value Reference Range Interpretation Comments Urine Color (test code = 5778-6) YELLOW YELLOW [facility] Rvjwilk7385-28-61 15:17:00* Test Item Value Reference Range Interpretation Comments Urine Clarity (test code = 45253-4) CLEAR CLEAR [facility] Specific Tgjkkzs6520-96-52 15:17:00 * Test Item Value Reference Range Interpretation Comments Urine Specific [place] (test code = 5811-5) 1.005 1.010-1.02 5 L [facility] aD7473-05-85 15:17:00* Test Item Value Reference Range Interpretation Comments Urine pH (test code = 87738-3) 6 5-7 [facility] Leukocyte Kfofblar1073-50-84 15:17:00* Test Item Value Reference Range Interpretation Comments Urine Leukocyte Esterase (test code = 5799-2) NEGATIVE NEGATIVE [facility] Rxujvcy4947-38-14 15:17:00* Test Item Value Reference Range Interpretation Comments Urine Nitrite (test code = 71510-2) NEGATIVE NEGATIVE [facility] Ifsnujk4386-06-24 15:17:00* Test Item Value Reference Range Interpretation Comments Urine Protein (test code = 5804-0) NEGATIVE NEGATIVE [facility] Glucose (UA)2018-01-30 15:17:00* Test Item Value Reference Range Interpretation Comments Urine Glucose (UA) (test code = 2349-9) NEGATIVE NEGATIVE [facility] Vglvcuu5726-01-15 15:17:00* Test Item Value Reference Range Interpretation Comments Urine Ketones (test code = 98526-1) NEGATIVE NEGATIVE [facility] Yrnkrkpnrzej9534-57-39 15:17:00* Test Item Value Reference Range Interpretation Comments Urine Urobilinogen (test code = 80899-9) 0.2 0.2-1 [facility] Pcidhafmm9415-46-08 15:17:00* Test Item Value Reference Range Interpretation Comments Urine Bilirubin (test code = 1978-6) NEGATIVE NEGATIVE [facility] Eemsk4961-43-55 15:17:00* Test Item Value Reference Range Interpretation Comments Urine Blood (test code = 10552-2) NEGATIVE NEGATIVE [facility] HospitalLipase2018-09-25 00:17:00* Test Item Value Reference Range Interpretation Comments Lipase (test code = 3040-3) 27 8-78 [facility]2018-09-25 00:17:00* Test Item Value Reference Range Interpretation Comments Lipase (test code = 3040-3) [facility]2018-09-25 00:17:00* Test Item Value Reference Range Interpretation Comments Lipase (test code = 3040-3) [facility]2018-09-25 00:17:00* Test Item Value Reference Range Interpretation Comments Lipase (test code = 3040-3) [facility]2018-09-25 00:17:00* Test Item Value Reference Range Interpretation Comments Lipase (test code = 3040-3) [facility] HospitalAct[facility] Partial Thromboplast Time 2018-01-30 00:09:00* Test Item Value Reference Range Interpretation Comments Activated Partial Thromboplast Time (test code = 59503-8) 64.0 23.8-35.5 H [facility] HospitalCT [facility]BD[facility]/PELVIS J7075-01-41 22:18:00 [place] [address] Patient Name: ELVIS LIPSCOMB MR #: [id number] : 1940 Age/Sex: 77/M Req #: [id number] Adm Physician: Ordered by: MITCHEL TAPIA DEPUTY CORONER Report #: [id number] Location: ER Room/ Bed: Procedure: [id number] CT/CT ABDOMEN/PELVIS W Exa m Date: Exam Time: REPORT STATUS: Signed E XAM: CT ABDOMEN/PELVIS W DATE: 01/27/2018 6:30 PM INDICATION: Abdominal pa in COMPARISON: None TECHNIQUE: The abdomen and pelvis were scanned using a multidetector helical scanner. Coronal and sagittal reformations were obtaine d. CT low dose techniques were utilized, as applicable. IV Contrast: 100 m l Isovue 300/370 FINDINGS: LOWER THORAX: No consolidations. Partially chris ged cardiomegaly pacing leads. LIVER/BILIARY: No masses. No ductal dilata tion. GALLBLADDER: Cholelithiasis. No pericholecystic fluid. SPLEEN: Unre markable PANCREAS: Unremarkable ADRENALS: No nodules KIDNEYS: Subcentim eter too small to characterize bilateral renal hypodensities, but likely cysts . No hydronephrosis. GI TRACT: No wall thickening or evidence of obstruc tion. No evidence of appendicitis. Diverticulosis. VESSELS: Mild atherosc lerotic changes PERITONEUM/RETROPERITONEUM: No free air or fluid LYMPH NODES : No lymphadenopathy REPRODUCTIVE ORGANS/BLADDER: Prostatomegaly, 6 cm. Mil d circumferential bladder wall thickening likely related to chronic outlet obs truction. SOFT TISSUES: Small bilateral fat-containing inguinal hernias. Pu nctate radiopaque densities are seen within the anterior abdominal wall soft t issues. BONES: No suspicious bone lesions. IMPRESSION: 1. No acute abno rmality in the abdomen or pelvis. 2. Cholelithiasis. Signed by: Dr Nellie Cunningham MD on 01/27/2018 10:27 PM Dictated By: NELLIE CUNNINGHAM MD Electr onically Signed By: NELLIE CUNNINGHAM MD on 01/27/182226 Transcribed By: MUNDO on 01/27/182226 COPY TO: MITCHEL TAPIA NP GALLBLADDER 2018-01-27 21:37:00 [place] [address] Patient Name: ELVIS LIPSCOMB MR #: [id number] : 1940 Age/Sex: 77/M Req #: [id number] Adm Physician: Ordered by: MITCHEL TAPIA NP Report #: [id number] Location: ER Room/Bed: Procedure: [id number] US/US GALLBLADDER Exam Al e: 01/27/18 Exam Time: 0255 REPORT STATUS: Sign ed EXAM: US GALLBLADDER DATE: 01/27/2018 12:00 AM INDICATION: S abdom inal pain, history of cholelithiasis S [id number] S 254, COMPARISON: No ne TECHNIQUE: Transverse and longitudinal swain scale and color doppler sonogr aphic images of the upper abdomen were obtained. FINDINGS: LIVER 14.1 cm in the right midclavicular line. Increased echogenicity, normal cont our, no masses. GALLBLADDER Cholelithiasis without wall-thickening or per icholecystic fluid. Negative sonographic Shelton's sign. BILE DUCTS No i ntra nor extra-hepatic biliary dilation. Common bile duct measures 0.5 cm PANCREAS: Not well visualized due to overlying bowel gas RIGHT KIDNEY: 11.3 cm Echogenicity: Normal Collecting System: No hydronephrosis Stones: N one Cyst/Mass: 2 right renal cysts are seen measuring 1.1 x 1.1 x 1.2 cm and 1 .1 x 0.9 1.3 cm. Hypoechoic area in the right mid kidney measures 3.3 x 2.6 x 2.6 cm. VESSELS: Aorta: Poorly visualized due to overlying bowel gas Inferior Vena Cava: Poorly visualized due to bowel gas Main Portal Vein: hepat opetal flow. FREE FLUID: None IMPRESSION: 1. Hepatic steatosis. 2. Cholelithiasis without evidence of acute cholecystitis. 3. Hypoechoic area in the right mid kidney, favored to reflect a lobulation or column of Michele. Consider nonemergent follow up CT without and with IV contrast (renal mass protocol) to exclude renal mass/lesion. Signed by: Dr Nellie Cunningham MD on 01/27/2018 9:42 PM Dictated By: NELLIE CUNNINGHAM MD 41 Transcribed By: MUNDO on 01/27/18 2 COPY TO: MITCHEL TAPIA NP Urine HCN6090-63-83 20:41:00* Test Item Value Reference Range Interpretation Comments Urine WBC (test code = 5821-4) NONE 0-5 [facility] CRW0147-29-29 20:41:00* Test Item Value Reference Range Interpretation Comments Urine RBC (test code = 58229-7) NONE 0-5 [facility] Sabucqpp2113-38-36 20:41:00* Test Item Value Reference Range Interpretation Comments Urine Bacteria (test code = 24268-5) RARE NONE [facility] Epithelial Pktsq4575-91-35 20:41:00 * Test Item Value Reference Range Interpretation Comments Urine Epithelial Cells (test code = 27810-5) RARE NONE [facility] Hveqd6939-23-75 20:18:00* Test Item Value Reference Range Interpretation Comments Urine Color (test code = 5778-6) YELLOW YELLOW [facility] Cpkckps5894-56-19 20:18:00* Test Item Value Reference Range Interpretation Comments Urine Clarity (test code = 22199-2) CLEAR CLEAR [facility] Specific Zwnqocp4014-81-26 20:18:00 * Test Item Value Reference Range Interpretation Comments Urine Specific [place] (test code = 5811-5) 1.015 1.010-1.02 5 [facility] yD9148-70-81 20:18:00* Test Item Value Reference Range Interpretation Comments Urine pH (test code = 29569-2) 6 5-7 [facility] Leukocyte Lftauedp8971-92-66 20:18:00* Test Item Value Reference Range Interpretation Comments Urine Leukocyte Esterase (test code = 5799-2) NEGATIVE NEGATIVE [facility] Ucwsnbd7807-36-81 20:18:00* Test Item Value Reference Range Interpretation Comments Urine Nitrite (test code = 99333-5) NEGATIVE NEGATIVE [facility] Erndfmn3726-29-81 20:18:00* Test Item Value Reference Range Interpretation Comments Urine Protein (test code = 5804-0) NEGATIVE NEGATIVE [facility] Glucose (UA)2018-01-27 20:18:00* Test Item Value Reference Range Interpretation Comments Urine Glucose (UA) (test code = 2349-9) NEGATIVE NEGATIVE [facility] Kizgksu1600-81-99 20:18:00* Test Item Value Reference Range Interpretation Comments Urine Ketones (test code = 70630-6) NEGATIVE NEGATIVE [facility] Ohzbsdxepomw0839-07-24 20:18:00* Test Item Value Reference Range Interpretation Comments Urine Urobilinogen (test code = 19559-1) 0.2 0.2-1 [facility] Fruwizdvo0283-92-99 20:18:00* Test Item Value Reference Range Interpretation Comments Urine Bilirubin (test code = 1978-6) NEGATIVE NEGATIVE [facility] Zotfq4559-08-63 20:18:00* Test Item Value Reference Range Interpretation Comments Urine Blood (test code = 52183-3) NEGATIVE NEGATIVE [facility] HospitalLactic Acid Udvll1495-91-56 19:38:00* Test Item Value Reference Range Interpretation Comments Lactic Acid Level (test code = Lactic Acid Level) 10.1 4.5- 19.8 [facility] HospitalLactic Acid Yzvmd9911-94-29 19:38:00* Test Item Value Reference Range Interpretation Comments Lactic Acid Level (test code = Lactic Acid Level) 10.1 4.5- 19.8 [facility] HospitalLactic Acid Acyxz7433-46-03 19:38:00* Test Item Value Reference Range Interpretation Comments Lactic Acid Level (test code = Lactic Acid Level) 10.1 4.5- 19.8 [facility] HospitalLactic Acid Ohpde7074-91-43 19:38:00* Test Item Value Reference Range Interpretation Comments Lactic Acid Level (test code = Lactic Acid Level) 10.1 4.5- 19.8 [facility] HospitalLactic Acid Yqnzf3938-05-78 19:38:00* Test Item Value Reference Range Interpretation Comments Lactic Acid Level (test code = Lactic Acid Level) 10.1 4.5- 19.8 [facility] HospitalLactic Acid Qjlzk1822-99-65 19:38:00* Test Item Value Reference Range Interpretation Comments Lactic Acid Level (test code = Lactic Acid Level) 10.1 4.5- 19.8 [facility] Springsodium Cpeug8672-15-76 19:10:00* Test Item Value Reference Range Interpretation Comments Sodium Level (test code = 2951-2) 136 136-145 [facility] HospitalPotassium Fuabw8564-38-28 19:10:00* Test Item Value Reference Range Interpretation Comments Potassium Level (test code = 2823-3) 4.6 3.5-5.1 [facility] HospitalChloride Ilwrr0453-84-48 19:10:00* Test Item Value Reference Range Interpretation Comments Chloride Level (test code = 2075-0) 100 98-107 [facility] HospitalCarbon Dioxide Qlgvp4289-81-98 19:10:00* Test Item Value Reference Range Interpretation Comments Carbon Dioxide Level (test code = 2028-9) 25 22-29 [facility] HospitalAnion Jmn1734-89-59 19:10:00* Test Item Value Reference Range Interpretation Comments Anion Gap (test code = 42478-7) 15.6 8-16 [facility] HospitalBlood Urea Lkkmjikz8570-67-48 19:10:00* Test Item Value Reference Range Interpretation Comments Blood Urea Nitrogen (test code = 3094-0) 16 7-26 [facility] HospitalCreatinine2018-09-22 19:10:00* Test Item Value Reference Range Interpretation Comments Creatinine (test code = 2160-0) 1.32 0.72-1.25 H [facility] HospitalBUN/Creatinine Vkjai0069-58-20 19:10:00* Test Item Value Reference Range Interpretation Comments BUN/Creatinine Ratio (test code = 3097-3) 12 6-25 [facility] HospitalEstimat Glomerular Filtration Rate 2018-01-27 19:10:00* Test Item Value Reference Range Interpretation Comments Estimat Glomerular Filtration Rate (test code = 999500373) 53 >60 L Ranges were taken from the National Kidney Disease Education Program and the [facility] literature.Reference ranges:60 or greater: Mbxzzq28-59 ( for 3 consecutive months): Chronic kidney disease 15 or less: Kidney failureFormerly [facility] HospitalGlucose Dszmv8694-85-05 19:10:00* Test Item Value Reference Range Interpretation Comments Glucose Level (test code = RQD0821) 117 74-118 [facility] HospitalCalcium Omolo2006-64-29 19:10:00* Test Item Value Reference Range Interpretation Comments Calcium Level (test code = 55153-1) 8.9 8.4-10.2 [facility] HospitalTotal Sitgimxaz0541-75-23 19:10:00* Test Item Value Reference Range Interpretation Comments Total Bilirubin (test code = 1975-2) 0.5 0.2-1.2 [facility] HospitalAspartate Amino Transf (AST/SGOT) 2018-01-27 19:10:00* Test Item Value Reference Range Interpretation Comments Aspartate Amino Transf (AST/SGOT) (test code = Aspartate Amino Transf (AST/SGOT)) 45 5-34 H [facility] HospitalAlanine Aminotransferase (ALT/SGPT) 2018-01-27 19:10:00* Test Item Value Reference Range Interpretation Comments Alanine Aminotransferase (ALT/SGPT) (test code = 1742-6) 38 0-55 [facility] Iordigj1436-30-03 19:10:00* Test Item Value Reference Range Interpretation Comments Total Protein (test code = 2885-2) 6.5 6.5-8.1 [facility] HospitalAlbumin2018-09-22 19:10:00* Test Item Value Reference Range Interpretation Comments Albumin (test code = 1751-7) 3.8 3.5-5.0 [facility] HospitalGlobulin2018-09-22 19:10:00* Test Item Value Reference Range Interpretation Comments Globulin (test code = 74772-2) 2.7 2.3-3.5 [facility] HospitalAlbumin/Globulin Uigny0014-64-46 19:10:00 * Test Item Value Reference Range Interpretation Comments Albumin/Globulin Ratio (test code = 1759-0) 1.4 0.8-2.0 [facility] HospitalAlkaline Jcevnyyjfig3278-95-08 19:10:00* Test Item Value Reference Range Interpretation Comments Alkaline Phosphatase (test code = 6768-6) 63 40-150 [facility] HospitalCreatine Cbydlv1374-20-67 19:10:00* Test Item Value Reference Range Interpretation Comments Creatine Kinase (test code = 2157-6) 159 30-200 [facility] HospitalCreatine Kinase PP5819-47-14 19:10:00* Test Item Value Reference Range Interpretation Comments Creatine Kinase MB (test code = 21808-9) 3.40 0-5.0 [facility] HospitalTroponin P2904-53-54 19:10:00* Test Item Value Reference Range Interpretation Comments Troponin I (test code = YRH6961) -0.001 0-0.300 [facility] HospitalLipase2018-09-22 19:10:00* Test Item Value Reference Range Interpretation Comments Lipase (test code = 3040-3) 147 8-78 H [facility] HospitalWhite Blood Zdlwe5670-47-13 18:49:00* Test Item Value Reference Range Interpretation Comments White Blood Count (test code = 6690-2) 5.69 4.8-10.8 [facility] HospitalRed Blood Smggd9321-81-58 18:49:00* Test Item Value Reference Range Interpretation Comments Red Blood Count (test code = 789-8) 4.31 4.3-5.7 [facility] HospitalHemoglobin2018-09-22 18:49:00* Test Item Value Reference Range Interpretation Comments Hemoglobin (test code = 64585-7) 11.8 14.0-18.0 L [facility] HospitalHematocrit2018-09-22 18:49:00* Test Item Value Reference Range Interpretation Comments Hematocrit (test code = 4544-3) 36.6 38.2-49.6 L [facility] HospitalMean Corpuscular Bxdpnx4952-89-70 18:49:00* Test Item Value Reference Range Interpretation Comments Mean Corpuscular Volume (test code = 787-2) 84.9 81-99 [facility] HospitalMean Corpuscular Bqgfeyganr5801-96-17 18:49:00* Test Item Value Reference Range Interpretation Comments Mean Corpuscular Hemoglobin (test code = 785-6) 27.4 28-32 L [facility] HospitalMean Corpuscular Hemoglobin Concent 2018-01-27 18:49:00* Test Item Value Reference Range Interpretation Comments Mean Corpuscular Hemoglobin Concent (test code = 786-4) 32.2 31-35 [facility] HospitalRed Cell Distribution Dhbmw9941-06-99 18:49:00* Test Item Value Reference Range Interpretation Comments Red Cell Distribution Width (test code = 94033-7) 15.3 11.7 -14.4 H [facility] HospitalPlatelet Nbvwt4338-00-57 18:49:00* Test Item Value Reference Range Interpretation Comments Platelet Count (test code = 777-3) 222 140-360 [facility] HospitalNeutrophils (%) (Auto)2018-01-27 18:49:00 * Test Item Value Reference Range Interpretation Comments Neutrophils (%) (Auto) (test code = 07119-2) 75.5 38.7-80.0 [facility] HospitalLymphocytes (%) (Auto)2018-01-27 18:49:00 * Test Item Value Reference Range Interpretation Comments Lymphocytes (%) (Auto) (test code = 736-9) 15.1 18.0-39.1 L [facility] HospitalMonocytes (%) (Auto)2018-01-27 18:49:00* Test Item Value Reference Range Interpretation Comments Monocytes (%) (Auto) (test code = 5905-5) 8.1 4.4-11.3 [facility] HospitalEosinophils (%) (Auto)2018-01-27 18:49:00 * Test Item Value Reference Range Interpretation Comments Eosinophils (%) (Auto) (test code = 713-8) 0.4 0.0-6.0 [facility] HospitalBasophils (%) (Auto)2018-01-27 18:49:00* Test Item Value Reference Range Interpretation Comments Basophils (%) (Auto) (test code = 706-2) 0.5 0.0-1.0 [facility] HospitalIM GRANULOCYTES %2018-01-27 18:49:00* Test Item Value Reference Range Interpretation Comments IM GRANULOCYTES % (test code = IM GRANULOCYTES %) 0.4 0.0- 1.0 [facility] HospitalNeutrophils # (Auto)2018-01-27 18:49:00* Test Item Value Reference Range Interpretation Comments Neutrophils # (Auto) (test code = 751-8) 4.3 2.1-6.9 [facility] HospitalLymphocytes # (Auto)2018-01-27 18:49:00* Test Item Value Reference Range Interpretation Comments Lymphocytes # (Auto) (test code = 29251-6) 0.9 1.0-3.2 L [facility] HospitalMonocytes # (Auto)2018-01-27 18:49:00* Test Item Value Reference Range Interpretation Comments Monocytes # (Auto) (test code = 742-7) 0.5 0.2-0.8 [facility] HospitalEosinophils # (Auto)2018-01-27 18:49:00* Test Item Value Reference Range Interpretation Comments Eosinophils # (Auto) (test code = 711-2) 0.0 0.0-0.4 [facility] HospitalBasophils # (Auto)2018-01-27 18:49:00* Test Item Value Reference Range Interpretation Comments Basophils # (Auto) (test code = 704-7) 0.0 0.0-0.1 [facility] HospitalAbsolute Immature Granulocyte (auto 2018-01-27 18:49:00* Test Item Value Reference Range Interpretation Comments Absolute Immature Granulocyte (auto (jacqueline t code = Absolute Immature Granulocyte (auto) 0.02 0-0.1 [facility] HospitalCHEST 2 EGZLL4166-35-59 08:34:00 [facility] [address] [place] [address] Patient Name: ELVIS LIPSCOMB MR #: [id number] : 1940 Age/Sex: 77/M Req #: [id number] Adm Physician: Ordered by: MAINE RAMIRES MD Report #: [id number] Location: ER Room /Bed: Procedure: [id number] DX/CHEST 2 VIEWS Exam Al e: 12/17/17 Exam Time: 800 REPORT STATUS: Sign ed EXAMINATION: CHEST 2 VIEWS INDICATION: SHARIF RISON: 08/28/2017 FINDINGS: PA and lateral views TUBES and LINES : Dual-lead left chest wall cardiac device is stable. LUNGS: Lungs are we ll inflated. Lungs are clear. There is no evidence of pneumonia or pulmonar y edema. PLEURA: No pleural effusion or pneumothorax. HEART AND MEDIA STINUM: The cardiomediastinal silhouette is unremarkable. BONES AND SO FT TISSUES: No acute osseous lesion. Again scattered metallic fragments. UPPER ABDOMEN: No free air under the diaphragm. IMPRESSION: No acu te thoracic abnormality. Signed by: Dr. Krystin Jacobs MD on 12/17/2017 8 :35 AM Dictated By: KRYSTIN JACOBS MD 4 Transcribed By: MUNDO on 12/17/17834 COPY TO : MAINE RAMIRES MD Urine Maxts3826-04-55 08:19:00* Test Item Value Reference Range Interpretation Comments Urine Color (test code = 5778-6) YELLOW YELLOW [facility] HospitalUrine Sylnubu9886-17-44 08:19:00* Test Item Value Reference Range Interpretation Comments Urine Clarity (test code = 71609-9) CLEAR CLEAR [facility] HospitalUrine Specific Vcqofyb7819-09-14 08:19:00 * Test Item Value Reference Range Interpretation Comments Urine Specific [place] (test code = 5811-5) 1.015 1.010-1.02 5 [facility] HospitalUrine aU4261-78-82 08:19:00* Test Item Value Reference Range Interpretation Comments Urine pH (test code = 82458-8) 7 5-7 [facility] HospitalUrine Leukocyte Qnhwtqsi9265-40-25 08:19:00* Test Item Value Reference Range Interpretation Comments Urine Leukocyte Esterase (test code = 5799-2) NEGATIVE NEGATIVE [facility] Luyjqap9914-77-93 08:19:00* Test Item Value Reference Range Interpretation Comments Urine Nitrite (test code = 53439-9) NEGATIVE NEGATIVE [facility] Iqwswzu4197-13-07 08:19:00* Test Item Value Reference Range Interpretation Comments Urine Protein (test code = 5804-0) NEGATIVE NEGATIVE [facility] Glucose (UA)2017-12-17 08:19:00* Test Item Value Reference Range Interpretation Comments Urine Glucose (UA) (test code = 2349-9) NEGATIVE NEGATIVE [facility] Rrwxozf3488-00-28 08:19:00* Test Item Value Reference Range Interpretation Comments Urine Ketones (test code = 69186-5) NEGATIVE NEGATIVE [facility] Wnhlinylando4948-13-76 08:19:00* Test Item Value Reference Range Interpretation Comments Urine Urobilinogen (test code = 28378-4) 0.2 0.2-1 [facility] HospitalUrine Dujmvnkml5247-83-83 08:19:00* Test Item Value Reference Range Interpretation Comments Urine Bilirubin (test code = 1978-6) NEGATIVE NEGATIVE [facility] Rwudx5476-64-44 08:19:00* Test Item Value Reference Range Interpretation Comments Urine Blood (test code = 04799-0) NEGATIVE NEGATIVE [facility] HospitalUrine TDR7826-70-29 08:19:00* Test Item Value Reference Range Interpretation Comments Urine WBC (test code = 5821-4) 0-5 0-5 [facility] HospitalU[facility] XTB7158-23-41 08:19:00* Test Item Value Reference Range Interpretation Comments Urine RBC (test code = 92087-9) 0-5 0-5 [facility] HospitalUrine Sskbdcyr4791-37-98 08:19:00* Test Item Value Reference Range Interpretation Comments Urine Bacteria (test code = 04425-9) RARE NONE [facility] HospitalUrine Epithelial Qcrjk4151-41-45 08:19:00 * Test Item Value Reference Range Interpretation Comments Urine Epithelial Cells (test code = 48175-4) RARE NONE [facility] Springsodium Lclva3907-15-44 08:14:00* Test Item Value Reference Range Interpretation Comments Sodium Level (test code = 2951-2) 140 136-145 [facility] HospitalPotassium Nahpp3534-75-02 08:14:00* Test Item Value Reference Range Interpretation Comments Potassium Level (test code = 2823-3) 4.5 3.5-5.1 [facility]Chloride Cqipx7496-03-02 08:14:00* Test Item Value Reference Range Interpretation Comments Chloride Level (test code = 2075-0) 104 98-107 [facility] HospitalCarbon Dioxide Qwlwi4825-09-43 08:14:00* Test Item Value Reference Range Interpretation Comments Carbon Dioxide Level (test code = 2028-9) 28 22-29 [facility] HospitalAnion Zdt0101-73-34 08:14:00* Test Item Value Reference Range Interpretation Comments Anion Gap (test code = 69782-3) 12.5 8-16 [facility] HospitalBlood Urea Cacxufll1869-63-15 08:14:00* Test Item Value Reference Range Interpretation Comments Blood Urea Nitrogen (test code = 3094-0) 15 7-26 [facility] HospitalCreatinine2018-08-12 08:14:00* Test Item Value Reference Range Interpretation Comments Creatinine (test code = 2160-0) 1.11 0.72-1.25 [facility] HospitalBUN/Creatinine Hiqmy7384-63-59 08:14:00* Test Item Value Reference Range Interpretation Comments BUN/Creatinine Ratio (test code = 3097-3) 14 6-25 [facility] HospitalEstimat Glomerular Filtration Rate 2017-12-17 08:14:00* Test Item Value Reference Range Interpretation Comments Estimat Glomerular Filtration Rate (test code = 81409-5) 60- >60 Ranges were taken from the National Kidney Disease Education Program and the [facility] literature.Reference ranges:60 or greater: Sdgiit59-14 ( for 3 consecutive months): Chronic kidney disease 15 or less: Kidney failureCHI [facility] At GreenvilleGlucose Pbwqx3209-83-88 08:14:00* Test Item Value Reference Range Interpretation Comments Glucose Level (test code = DDF6453) 122 74-118 H [facility] HospitalCalcium Zmmgo3985-26-48 08:14:00* Test Item Value Reference Range Interpretation Comments Calcium Level (test code = 57134-9) 9.1 8.4-10.2 [facility] HospitalTotal Sakbdzyua3654-59-70 08:14:00* Test Item Value Reference Range Interpretation Comments Total Bilirubin (test code = 1975-2) 1.4 0.2-1.2 H [facility] HospitalAspartate Amino Transf (AST/SGOT) 2017-12-17 08:14:00* Test Item Value Reference Range Interpretation Comments Aspartate Amino Transf (AST/SGOT) (test code = Aspartate Amino Transf (AST/SGOT)) 32 5-34 [facility] HospitalAlanine Aminotransferase (ALT/SGPT) 2017-12-17 08:14:00* Test Item Value Reference Range Interpretation Comments Alanine Aminotransferase (ALT/SGPT) (test code = 1742-6) 38 0-55 [facility] HospitalTotal Vasrvbh0400-94-59 08:14:00* Test Item Value Reference Range Interpretation Comments Total Protein (test code = 2885-2) 6.3 6.5-8.1 L [facility] HospitalAlbumin2018-08-12 08:14:00* Test Item Value Reference Range Interpretation Comments Albumin (test code = 1751-7) 3.8 3.5-5.0 [facility] HospitalGlobulin2018-08-12 08:14:00* Test Item Value Reference Range Interpretation Comments Globulin (test code = 97086-5) 2.5 2.3-3.5 [facility] HospitalAlbumin/Globulin Begjm6562-86-76 08:14:00 * Test Item Value Reference Range Interpretation Comments Albumin/Globulin Ratio (test code = 1759-0) 1.5 0.8-2.0 [facility] HospitalAlkaline Owuyqgvvhdn6336-00-98 08:14:00* Test Item Value Reference Range Interpretation Comments Alkaline Phosphatase (test code = 6768-6) 63 40-150 [facility] HospitalCreatine Tsbbzl3759-59-85 08:14:00* Test Item Value Reference Range Interpretation Comments Creatine Kinase (test code = 2157-6) 557 30-200 H [facility] HospitalCreatine Kinase RX8516-61-40 08:14:00* Test Item Value Reference Range Interpretation Comments Creatine Kinase MB (test code = 69564-2) 2.90 0-5.0 [facility] HospitalTroponin N4969-93-20 08:14:00* Test Item Value Reference Range Interpretation Comments Troponin I (test code = EKT8141) 0.150 0-0.300 [facility] HospitalAmylase Snohl5506-44-65 08:14:00* Test Item Value Reference Range Interpretation Comments Amylase Level (test code = 1798-8) 99 25-125 [facility] HospitalLipase2018-08-12 08:14:00* Test Item Value Reference Range Interpretation Comments Lipase (test code = 3040-3) 109 8-78 H [facility] HospitalAmylase Cftfn2879-37-94 08:14:00* Test Item Value Reference Range Interpretation Comments Amylase Level (test code = 1798-8) 99 25-125 [facility] HospitalWhite Blood Ouhfj9017-07-54 07:55:00* Test Item Value Reference Range Interpretation Comments White Blood Count (test code = 6690-2) 6.24 4.8-10.8 [facility] HospitalRed Blood Teinb0615-04-69 07:55:00* Test Item Value Reference Range Interpretation Comments Red Blood Count (test code = 789-8) 3.93 4.3-5.7 L [facility] HospitalHemoglobin2018-08-12 07:55:00* Test Item Value Reference Range Interpretation Comments Hemoglobin (test code = 78504-6) 10.8 14.0-18.0 L [facility] HospitalHematocrit2018-08-12 07:55:00* Test Item Value Reference Range Interpretation Comments Hematocrit (test code = 4544-3) 33.7 38.2-49.6 L [facility] HospitalMean Corpuscular Robbka1141-64-37 07:55:00* Test Item Value Reference Range Interpretation Comments Mean Corpuscular Volume (test code = 787-2) 85.8 81-99 [facility] HospitalMean Corpuscular Xpaimcxxqm7590-51-54 07:55:00* Test Item Value Reference Range Interpretation Comments Mean Corpuscular Hemoglobin (test code = 785-6) 27.5 28-32 L [facility] HospitalMean Corpuscular Hemoglobin Concent 2017-12-17 07:55:00* Test Item Value Reference Range Interpretation Comments Mean Corpuscular Hemoglobin Concent (test code = 786-4) 32.0 31-35 [facility] HospitalRed Cell Distribution Innen8556-09-88 07:55:00* Test Item Value Reference Range Interpretation Comments Red Cell Distribution Width (test code = 70920-1) 14.5 11.7 -14.4 H [facility] HospitalPlatelet Tfdmy9121-92-02 07:55:00* Test Item Value Reference Range Interpretation Comments Platelet Count (test code = 777-3) 161 140-360 [facility] HospitalNeutrophils (%) (Auto)2017-12-17 07:55:00 * Test Item Value Reference Range Interpretation Comments Neutrophils (%) (Auto) (test code = 45581-3) 83.7 38.7-80.0 H [facility] HospitalLymphocytes (%) (Auto)2017-12-17 07:55:00 * Test Item Value Reference Range Interpretation Comments Lymphocytes (%) (Auto) (test code = 736-9) 7.9 18.0-39.1 L [facility] HospitalMonocytes (%) (Auto)2017-12-17 07:55:00* Test Item Value Reference Range Interpretation Comments Monocytes (%) (Auto) (test code = 5905-5) 6.9 4.4-11.3 [facility] HospitalEosinophils (%) (Auto)2017-12-17 07:55:00 * Test Item Value Reference Range Interpretation Comments Eosinophils (%) (Auto) (test code = 713-8) 0.5 0.0-6.0 [facility] HospitalBasophils (%) (Auto)2017-12-17 07:55:00* Test Item Value Reference Range Interpretation Comments Basophils (%) (Auto) (test code = 706-2) 0.5 0.0-1.0 [facility] HospitalIM GRANULOCYTES %2017-12-17 07:55:00* Test Item Value Reference Range Interpretation Comments IM GRANULOCYTES % (test code = IM GRANULOCYTES %) 0.5 0.0- 1.0 [facility] HospitalNeutrophils # (Auto)2017-12-17 07:55:00* Test Item Value Reference Range Interpretation Comments Neutrophils # (Auto) (test code = 751-8) 5.2 2.1-6.9 [facility] HospitalLymphocytes # (Auto)2017-12-17 07:55:00* Test Item Value Reference Range Interpretation Comments Lymphocytes # (Auto) (test code = 82225-1) 0.5 1.0-3.2 L [facility] HospitalMonocytes # (Auto)2017-12-17 07:55:00* Test Item Value Reference Range Interpretation Comments Monocytes # (Auto) (test code = 742-7) 0.4 0.2-0.8 [facility] HospitalEosinophils # (Auto)2017-12-17 07:55:00* Test Item Value Reference Range Interpretation Comments Eosinophils # (Auto) (test code = 711-2) 0.0 0.0-0.4 [facility] HospitalBasophils # (Auto)2017-12-17 07:55:00* Test Item Value Reference Range Interpretation Comments Basophils # (Auto) (test code = 704-7) 0.0 0.0-0.1 [facility] HospitalAbsolute Immature Granulocyte (auto 2017-12-17 07:55:00* Test Item Value Reference Range Interpretation Comments Absolute Immature Granulocyte (auto (jacqueline t code = Absolute Immature Granulocyte (auto) 0.03 0-0.1 [facility] HospitalBASI METABOLIC DEYCU8863-12-06 04:11:00 * Test Item Value Reference Range Interpretation Comments SODIUM (BEAKER) (test code = 381) 136 meq/L 136-145 POTASSIUM (BEAKER) (test code = 379) 4.1 meq/L 3.5-5.1 CHLORIDE (BEAKER) (test code = 382) 103 meq/L 98-107 CO2 (BEAKER) (test code = 355) 24 meq/L 22-29 BLOOD UREA NITROGEN (BEAKER) (test code = 354) 18 mg/dL 7-21 CREATININE (BEAKER) (test code = 358) 1.40 mg/dL 0.57-1.25 H GLUCOSE RANDOM (BEAKER) (test code = 652) 128 mg/dL 70-105 H CALCIUM (BEAKER) (test code = 697) 8.5 mg/dL 8.4-10.2 EGFR (BEAKER) (test code = 1092) 49 mL/min/1.73 sq m ESTIMATED GFR IS NOT ACCURATE CREATININE CLEARANCE IN PREDICTING GLOMERULAR FILTRATION RATE. ESTIMATED GFR IS NOT APPLICABLE FOR DIALYSIS PATIENTS. CBC (HEMOGRAM ONLY)2017-12-14 04:01:00* Test Item Value Reference Range Interpretation Comments WHITE BLOOD CELL COUNT (BEAKER) (test code = 775) 7.8 K/ L 3.5- 10.5 RED BLOOD CELL COUNT (BEAKER) (test code = 761) 4.14 M/ L 4.63-6 .08 L HEMOGLOBIN (BEAKER) (test code = 410) 11.2 GM/DL 13.7-17.5 L HEMATOCRIT (BEAKER) (test code = 411) 36.7 % 40.1-51.0 L MEAN CORPUSCULAR VOLUME (BEAKER) (test code = 753) 88.6 fL 79. 0-92.2 MEAN CORPUSCULAR HEMOGLOBIN (BEAKER) (test code = 751) 27.1 pg 25.7-32.2 MEAN CORPUSCULAR HEMOGLOBIN CONC (BEAKER) (test code = 752) 30.5 GM/DL 32.3-36.5 L RED CELL DISTRIBUTION WIDTH (BEAKER) (test code = 412) 14.6 % 11.6-14.4 H PLATELET COUNT (BEAKER) (test code = 756) 178 K/CU MM 150-450 MEAN PLATELET VOLUME (BEAKER) (test code = 754) 9.1 fL 9.4-12 .4 L NUCLEATED RED BLOOD CELLS (BEAKER) (test code = 413) 0 /100 WBC 0 -0 POCT-GLUCOSE KMXDL3920-77-71 03:47:00* Test Item Value Reference Range Interpretation Comments POC-GLUCOSE METER (BEAKER) (test code = 1538) 141 mg/dL 70-110 H TESTED AT [place] [id number]-[id number] 18:15:00* Test Item Value Reference Range Interpretation Comments ACTIVATED CLOTTING TIME (BEAKER) (test code = 441) 125 sec TESTED AT [place] [id number]-[id number] 16:33:00* Test Item Value Reference Range Interpretation Comments ACTIVATED CLOTTING TIME (BEAKER) (test code = 441) 340 sec TESTED AT [place] [address] WVWP-[id number] 16:20:00* Test Item Value Reference Range Interpretation Comments ACTIVATED CLOTTING TIME (BEAKER) (test code = 441) 296 sec TESTED AT [place] [address] [id number]-[id number] 15:49:00* Test Item Value Reference Range Interpretation Comments ACTIVATED CLOTTING TIME (BEAKER) (test code = 441) 307 sec TESTED AT [place] [address] [id number]-[id number] 15:24:00* Test Item Value Reference Range Interpretation Comments ACTIVATED CLOTTING TIME (BEAKER) (test code = 441) 268 sec TESTED AT [place] [address] PROTHROMBIN TIME/[id number] 08:41:00* Test Item Value Reference Range Interpretation Comments PROTIME (BEAKER) (test code = 759) 16.5 seconds 11.7-14.7 H INR (BEAKER) (test code = 370) 1.3 <=5.9 RECOMMENDED COUMADIN/WARFARIN INR THERAPY RANGESSTANDARD DOSE: 2.0 - 3.0 Inclu leonor: PROPHYLAXIS for venous thrombosis, systemic embolization; TREATMENT for estevan ous thrombosis and/or pulmonary embolus.HIGH RISK: Target INR is 2.5-3.5 for pat ients with mechanical heart valves.BASIC METABOLIC [id number] 08:18:00* Test Item Value Reference Range Interpretation Comments SODIUM (BEAKER) (test code = 381) 140 meq/L 136-145 POTASSIUM (BEAKER) (test code = 379) 4.3 meq/L 3.5-5.1 CHLORIDE (BEAKER) (test code = 382) 104 meq/L 98-107 CO2 (BEAKER) (test code = 355) 29 meq/L 22-29 BLOOD UREA NITROGEN (BEAKER) (test code = 354) 15 mg/dL 7-21 CREATININE (BEAKER) (test code = 358) 1.28 mg/dL 0.57-1.25 H GLUCOSE RANDOM (BEAKER) (test code = 652) 130 mg/dL 70-105 H CALCIUM (BEAKER) (test code = 697) 9.2 mg/dL 8.4-10.2 EGFR (BEAKER) (test code = 1092) 55 mL/min/1.73 sq m ESTIMATED GFR IS NOT ACCURATE CREATININE CLEARANCE IN PREDICTING GLOMERULAR FILTRATION RATE. ESTIMATED GFR IS NOT APPLICABLE FOR DIALYSIS PATIENTS. CBC W/PLT COUNT & AUTO [id number] 08:04:00* Test Item Value Reference Range Interpretation Comments WHITE BLOOD CELL COUNT (BEAKER) (test code = 775) 4.9 K/ L 3.5- 10.5 RED BLOOD CELL COUNT (BEAKER) (test code = 761) 4.30 M/ L 4.63-6 .08 L HEMOGLOBIN (BEAKER) (test code = 410) 11.5 GM/DL 13.7-17.5 L HEMATOCRIT (BEAKER) (test code = 411) 37.7 % 40.1-51.0 L MEAN CORPUSCULAR VOLUME (BEAKER) (test code = 753) 87.7 fL 79. 0-92.2 MEAN CORPUSCULAR HEMOGLOBIN (BEAKER) (test code = 751) 26.7 pg 25.7-32.2 MEAN CORPUSCULAR HEMOGLOBIN CONC (BEAKER) (test code = 752) 30.5 GM/DL 32.3-36.5 L RED CELL DISTRIBUTION WIDTH (BEAKER) (test code = 412) 14.4 % 11.6-14.4 PLATELET COUNT (BEAKER) (test code = 756) 171 K/CU MM 150-450 MEAN PLATELET VOLUME (BEAKER) (test code = 754) 8.8 fL 9.4-12 .4 L NUCLEATED RED BLOOD CELLS (BEAKER) (test code = 413) 0 /100 WBC 0 -0 NEUTROPHILS RELATIVE PERCENT (BEAKER) (test code = 429) 75 % LYMPHOCYTES RELATIVE PERCENT (BEAKER) (test code = 430) 14 % MONOCYTES RELATIVE PERCENT (BEAKER) (test code = 431) 9 % EOSINOPHILS RELATIVE PERCENT (BEAKER) (test code = 432) 1 % BASOPHILS RELATIVE PERCENT (BEAKER) (test code = 437) 1 % NEUTROPHILS ABSOLUTE COUNT (BEAKER) (test code = 670) 3.67 K/ L 1.78-5.38 LYMPHOCYTES ABSOLUTE COUNT (BEAKER) (test code = 414) 0.70 K/ L 1.32-3.57 L MONOCYTES ABSOLUTE COUNT (BEAKER) (test code = 415) 0.43 K/ L 0. 30-0.82 EOSINOPHILS ABSOLUTE COUNT (BEAKER) (test code = 416) 0.03 K/ L 0.04-0.54 L BASOPHILS ABSOLUTE COUNT (BEAKER) (test code = 417) 0.03 K/ L 0. 01-0.08 IMMATURE GRANULOCYTES-RELATIVE PERCENT (BEAKER) (test code = 2801) 1 % 0-1 DYQX-[id number] 08:43:00* Test Item Value Reference Range Interpretation Comments POC-CREATININE (BEAKER) (test code = 1859) 1.2 mg/dL 0.6-1.3 TESTED AT [facility] [address] [facility] [address] POC-EGFR (BEAKER) (test code = 0160) 59 mL/min/1.73M2 CT, HEART, [id number] 14:59:00Reason for Exam:->AfibReason for Exam:->SOB Addendum BeginsREPORT STATUS:A Addendum: I agree with the previously described non vascular findings. Signed: Shamar Barahona MDReport Ve rified Date/Time: 12/11/2017 14:59:15 Reading Location: [place] [address] Angio Body Reading RoomAddendum EndsFINAL REPORT CT angiography of t he pulmonary veins, 11 December 2017 INDICATION: This is a 77 years old male w ith history of atrial fibrillation presented here for pulmonary vein ostial marialuisa ing. This study is performed in an attempt to avoid invasive procedure. TECHNIQU E: Spiral acquisition during intravenous contrast administration using a [employer] multislice cardiac CT scanner without prospective ECG triggering. Multiplanar reconstructions were performed interactively by the interpreting physician using an independent ([employer]) workstation. Please refer to the contrast sheet scanned in the [email or web address] system for the amount and route of contrast given. This exam was p erformed according to our departmental dose-optimisation programme, which includ es automated exposure control, adjustment of the mA and/or kV according to patie nt size and/or use of iterative reconstruction technique. Dose modulation, itera tive reconstruction, and/or weight based adjustment of the mA/kV was utilized to reduce the radiation dose to as low as reasonably achievable. FINDINGS: VASCUL AR: An electronic device is identified in the [...] are all widely patent. The cardiac chambers demonstr ate normal atrioventricular and ventriculoarterial concordance, and systemic and pulmonary venous return. The left ventricle is normal in size. The coronary art isha origins are normal. No coronary calcification is present. Left atrial enlar gement is identified. Right atrial prominence is present. Persistent hypodensity is identified in the left atrial appendage tip, even in the second dynamic data set - the above findings suggest the distal flow versus thrombus. Correlate wi th echocardiography. Pulmonary vein morphology is normal with pairs of pulmonar y veins on each side of the left atrium. There is no evidence for pulmonary vein stenosis. Quantitative pulmonary vein ostial mapping (measured utilizing MPR an alysis) is as follows: Pulmonary vein Major axis Minor axis Cross-sec tional area Right upper 19 mm 17 mm 3.7 ia1Tqrbb lower 16 mm 1 4 mm 1.7 dy3Oavl upper 19 mm 15 mm 2.4 yv6Toli lower 19 mm 17 mm 2.3 cm2 NON-VASCULAR: The visualised thyroid gland appears unremarkable. The chest wall and mediastinum appears normal. No significant ad enopathy is identified in the mediastinum. In the lung windows, no obvious endob ronchial lesion is seen, and no pleural effusion is identified. Some subsegmenta l atelectatic changes are seen. Calcified granuloma is identified posterior aspe ct of the left lung at image 30 indicating prior granulomatous disease. No suspi cious pulmonary nodule is identified. The limited images of the upper abdomen re veal no significant abnormalities of the visualized organs. No acute bony pathol ogy is identified. Some degenerative changes is noted. IMPRESSIONS: 1. Left at rial enlargement is identified. PERSISTENT HYPODENSITY is identified in the left atrial appendage tip, even in the second dynamic data set - the above findings suggest the distal flow versus thrombus. Correlate with echocardiography. 2. Pulmonary vein morphology is normal with pairs of pulmonary veins bilaterally. There is no evidence for pulmonary vein stenosis. Quantitative pulmonary vein os tial mapping is as noted above. 3. Coronary stent in the LAD territory. 4. Nor mal thoracic aorta. No ectasia or aneurysmal dilation is identified. Minimal ath erosclerosis seen in the descending thoracic aorta. 5. No acute pulmonary patho logy. Evidence of prior granulomatous disease. 6. An addendum will be dictated regarding the non-vascular findings by the Consulting Project Director Radiologist. Signed: Delvin Hernandezeport Verified Date/Time: 12/11/2017 08:33:56 Reading Location: [facility] P047 Cardiology MRI Electronically signed by: SHAMAR merchant 12/11/2017 02:59 PM BASIC METABOLIC [id number] 07:20:00* Test Item Value Reference Range Interpretation Comments SODIUM (BEAKER) (test code = 381) 139 meq/L 136-145 POTASSIUM (BEAKER) (test code = 379) 5.0 meq/L 3.5-5.1 CHLORIDE (BEAKER) (test code = 382) 103 meq/L 98-107 CO2 (BEAKER) (test code = 355) 30 meq/L 22-29 H BLOOD UREA NITROGEN (BEAKER) (test code = 354) 15 mg/dL 7-21 CREATININE (BEAKER) (test code = 358) 1.34 mg/dL 0.57-1.25 H GLUCOSE RANDOM (BEAKER) (test code = 652) 121 mg/dL 70-105 H CALCIUM (BEAKER) (test code = 697) 9.4 mg/dL 8.4-10.2 EGFR (BEAKER) (test code = 1092) 52 mL/min/1.73 sq m ESTIMATED GFR IS NOT ACCURATE CREATININE CLEARANCE IN PREDICTING GLOMERULAR FILTRATION RATE. ESTIMATED GFR IS NOT APPLICABLE FOR DIALYSIS PATIENTS. PT/[id number] 07:10:00* Test Item Value Reference Range Interpretation Comments PROTIME (BEAKER) (test code = 759) 23.8 seconds 11.7-14.7 H INR (BEAKER) (test code = 370) 2.1 <=5.9 PARTIAL THROMBOPLASTIN TIME (BEAKER) (test code = 760) 56.1 seconds 22.5-36.0 H RECOMMENDED COUMADIN/WARFARIN INR THERAPY RANGESSTANDARD DOSE: 2.0 - 3.0 Inclu leonor: PROPHYLAXIS for venous thrombosis, systemic embolization; TREATMENT for estevan ous thrombosis and/or pulmonary embolus.HIGH RISK: Target INR is 2.5-3.5 for pat ients with mechanical heart valves.Prothrombin Etfn7602-11-31 10:32:00* Test Item Value Reference Range Interpretation Comments Prothrombin Time (test code = 5902-2) 14.9 11.9-14.5 H [facility] HospitalProthromb Time International Ratio 2017-12-04 10:32:00* Test Item Value Reference Range Interpretation Comments Prothromb Time International Ratio (test code = 6301-6) 1.27 Oral Anticoagulant Therapy INR Values:1. Low Intensity Therapy 1.5 - 2.02 . Moderate Intensity Therapy 2.0 - 3.03. High Intensity Therapy(1) 2.5 - 3. 54. High Intensity Therapy(2) 3.0 - 4.05. Panic Value INR > 5.0 [facility] HospitalProthrombin Pfcu0788-79-58 10:32:00* Test Item Value Reference Range Interpretation Comments Prothrombin Time (test code = 5902-2) 14.9 11.9-14.5 H [facility] HospitalProthromb Time International Ratio 2017-12-04 10:32:00* Test Item Value Reference Range Interpretation Comments Prothromb Time International Ratio (test code = 6301-6) 1.27 Oral Anticoagulant Therapy INR Values:1. Low Intensity Therapy 1.5 - 2.02 . Moderate Intensity Therapy 2.0 - 3.03. High Intensity Therapy(1) 2.5 - 3. 54. High Intensity Therapy(2) 3.0 - 4.05. Panic Value INR > 5.0 [facility] HospitalTriglycerides Ckgxx4832-98-36 12:32:00* Test Item Value Reference Range Interpretation Comments Triglycerides Level (test code = 2571-8) 70 0-149 [facility] HospitalCholesterol Nsjcy3267-62-10 12:32:00* Test Item Value Reference Range Interpretation Comments Cholesterol Level (test code = 2093-3) 140 0-199 Less than 200 mg/dL Low Lyrj123 - 239 mg/dL Borderline Czxq633 m g/dl and greater High Risk [facility] HospitalLDL Wecdjufjpin2657-16-16 12:32:00* Test Item Value Reference Range Interpretation Comments LDL Cholesterol (test code = 2089-1) 90 60-130 [facility] HospitalHDL Yjlfusxwczl8880-16-47 12:32:00* Test Item Value Reference Range Interpretation Comments HDL Cholesterol (test code = 2085-9) 36 40-60 L [facility] HospitalCholesterol/HDL Kvbdv0180-50-08 12:32:00 * Test Item Value Reference Range Interpretation Comments Cholesterol/HDL Ratio (test code = 9830-1) 3.9 3.9-4.7 [facility] HospitalTriglycerides Yztwa0633-58-80 12:32:00* Test Item Value Reference Range Interpretation Comments Triglycerides Level (test code = 2571-8) 70 0-149 [facility] HospitalCholesterol Gannu8558-53-78 12:32:00* Test Item Value Reference Range Interpretation Comments Cholesterol Level (test code = 2093-3) 140 0-199 Less than 200 mg/dL Low Ecmh624 - 239 mg/dL Borderline Ltkm530 m g/dl and greater High Risk [facility] HospitalLDL Slzekvewral8261-76-41 12:32:00* Test Item Value Reference Range Interpretation Comments LDL Cholesterol (test code = 2089-1) 90 60-130 [facility] Kbjskywqxzl8228-18-42 12:32:00* Test Item Value Reference Range Interpretation Comments HDL Cholesterol (test code = 2085-9) 36 40-60 L [facility] HospitalCholesterol/HDL Hvbgj0787-80-17 12:32:00 * Test Item Value Reference Range Interpretation Comments Cholesterol/HDL Ratio (test code = 9830-1) 3.9 3.9-4.7 [facility] HospitalTriglycerides Gzstv5864-66-14 12:32:00* Test Item Value Reference Range Interpretation Comments Triglycerides Level (test code = 2571-8) 70 0-149 [facility] HospitalCholesterol Lmbkg0431-30-53 12:32:00* Test Item Value Reference Range Interpretation Comments Cholesterol Level (test code = 2093-3) 140 0-199 Less than 200 mg/dL Low Vxyo153 - 239 mg/dL Borderline Qbnd311 m g/dl and greater High Risk [facility] HospitalLDL Mwpirvedvif5055-98-13 12:32:00* Test Item Value Reference Range Interpretation Comments LDL Cholesterol (test code = 2089-1) 90 60-130 [facility] Genzmcbotwc3879-28-65 12:32:00* Test Item Value Reference Range Interpretation Comments HDL Cholesterol (test code = 2085-9) 36 40-60 L [facility] HospitalCholesterol/HDL Kiega6638-16-87 12:32:00 * Test Item Value Reference Range Interpretation Comments Cholesterol/HDL Ratio (test code = 9830-1) 3.9 3.9-4.7 [facility] Ugmxt7732-80-77 12:32:00* Test Item Value Reference Range Interpretation Comments Triglycerides Level (test code = 2571-8) 70 0-149 [facility]Ch[facility] Fmubz6039-83-09 12:32:00* Test Item Value Reference Range Interpretation Comments Cholesterol Level (test code = 2093-3) 140 0-199 Less than 200 mg/dL Low Waja063 - 239 mg/dL Borderline Fhnr891 m g/dl and greater High Risk [facility] HospitalLDL Kmdqctkzfwz5916-53-15 12:32:00* Test Item Value Reference Range Interpretation Comments LDL Cholesterol (test code = 2089-1) 90 60-130 [facility]HDL Vhwlxrcctez7001-42-74 12:32:00* Test Item Value Reference Range Interpretation Comments HDL Cholesterol (test code = 2085-9) 36 40-60 L [facility]Ch[facility]/HDL Mbmpm2503-37-92 12:32:00 * Test Item Value Reference Range Interpretation Comments Cholesterol/HDL Ratio (test code = 9830-1) 3.9 3.9-4.7 [facility]Triglycerides Vyftt8424-24-95 12:32:00* Test Item Value Reference Range Interpretation Comments Triglycerides Level (test code = 2571-8) 70 0-149 [facility]Ch[facility] Ixpbx8258-92-98 12:32:00* Test Item Value Reference Range Interpretation Comments Cholesterol Level (test code = 2093-3) 140 0-199 Less than 200 mg/dL Low Tqdp330 - 239 mg/dL Borderline Cyqw356 m g/dl and greater High Risk [facility] HospitalLDL Habzkbeqbqb2510-82-01 12:32:00* Test Item Value Reference Range Interpretation Comments LDL Cholesterol (test code = 2089-1) 90 60-130 [facility] Ekigdydtges5835-89-02 12:32:00* Test Item Value Reference Range Interpretation Comments HDL Cholesterol (test code = 2085-9) 36 40-60 L [facility]HDL Askxk1372-95-45 12:32:00 * Test Item Value Reference Range Interpretation Comments Cholesterol/HDL Ratio (test code = 9830-1) 3.9 3.9-4.7 [facility]Triglycerides Olhcc8181-94-36 12:32:00* Test Item Value Reference Range Interpretation Comments Triglycerides Level (test code = 2571-8) 70 0-149 [facility]Cholesterol Omdgn9978-15-69 12:32:00* Test Item Value Reference Range Interpretation Comments Cholesterol Level (test code = 2093-3) 140 0-199 Less than 200 mg/dL Low Clkj409 - 239 mg/dL Borderline Btll934 m g/dl and greater High Risk [facility]LDL Ctzmvaqdtwo5716-32-45 12:32:00* Test Item Value Reference Range Interpretation Comments LDL Cholesterol (test code = 2089-1) 90 60-130 [facility] Evgthdprzhl4327-95-32 12:32:00* Test Item Value Reference Range Interpretation Comments HDL Cholesterol (test code = 2085-9) 36 40-60 L [facility]Ch[facility]HDL Clilq3742-58-75 12:32:00 * Test Item Value Reference Range Interpretation Comments Cholesterol/HDL Ratio (test code = 9830-1) 3.9 3.9-4.7 [facility]Triglycerides Rptjb2792-95-75 12:32:00* Test Item Value Reference Range Interpretation Comments Triglycerides Level (test code = 2571-8) 70 0-149 [facility]Cholesterol Awuht7256-13-27 12:32:00* Test Item Value Reference Range Interpretation Comments Cholesterol Level (test code = 2093-3) 140 0-199 Less than 200 mg/dL Low Qltm245 - 239 mg/dL Borderline Sopq186 m g/dl and greater High Risk [facility]LDL Rqdcnxwitww7938-01-40 12:32:00* Test Item Value Reference Range Interpretation Comments LDL Cholesterol (test code = 2089-1) 90 60-130 [facility] HospitalHDL Juwsigusnif5084-56-78 12:32:00* Test Item Value Reference Range Interpretation Comments HDL Cholesterol (test code = 2085-9) 36 40-60 L [facility]Ch[facility]HDL Hvkwo5693-57-02 12:32:00 * Test Item Value Reference Range Interpretation Comments Cholesterol/HDL Ratio (test code = 9830-1) 3.9 3.9-4.7 [facility] HospitalActivated Partial Thromboplast Time 2017-11-30 12:23:00* Test Item Value Reference Range Interpretation Comments Activated Partial Thromboplast Time (test code = 63397-9) 51.4 23.8-35.5 H [facility] HospitalAct[facility] Partial Thromboplast Time 2017-11-30 12:23:00* Test Item Value Reference Range Interpretation Comments Activated Partial Thromboplast Time (test code = 66577-0) 51.4 23.8-35.5 H [facility] - Treadmill QTAQ4752-14-07 15:10:00 [facility] [address] [address] Patient Name : ELVIS LIPSCOMB MR #: [id number] : 1940 Age/Sex: 77/M Adm Physician : RAJINDER GROSS MD Admit Date : Location : PR Room/Bed : REPORT: Cardiology Report DATE OF STUD Y: November 22, 2017 NUCLEAR GATED MYOCARDIAL PERFUSION SCAN Nuclear gat ed myocardial perfusion scan performed as per protocol at nuclear medicine la b at [facility]. The stress test is supervised by Dr. Rajinder Gross. I read only the nuclear part of the stress test. Lexiscan inj ected 0.4 mg intravenously as stress agent. Myoview injected 10 mCi for resti ng protocol, 27 mCi for stress protocol. IMPRESSION: Normal gated myocardi al perfusion scan. No evidence of ischemia or scar noted. Left ventricular ejection fraction is 45% to 50%. Normal study. Thank you, Dr. Rajinder ba, for this nuclear medicine interpretation consultation. Job#: [id number] EV Signature Date Dictated By: MATTHEW LAUREN MD Transcribed By: PRESTON on 11/22/17 <Electronically signed by MATTHEW LAUREN MD><<Signature on File>>11/23/17 1412 COPY TO: Creatine Pyfnth7073-57-59 03:30:00* Test Item Value Reference Range Interpretation Comments Creatine Kinase (test code = 2157-6) 169 30-200 [facility] HospitalCreatine Kinase NC5370-29-75 03:30:00* Test Item Value Reference Range Interpretation Comments Creatine Kinase MB (test code = 14465-1) 4.60 0-5.0 [facility] HospitalTroponin R2586-32-36 03:30:00* Test Item Value Reference Range Interpretation Comments Troponin I (test code = WWX7627) -0.001 0-0.300 [facility] Springsodium Abfjr2381-82-36 01:01:00* Test Item Value Reference Range Interpretation Comments Sodium Level (test code = 2951-2) 142 136-145 [facility] HospitalPotassium Zusho0404-54-54 01:01:00* Test Item Value Reference Range Interpretation Comments Potassium Level (test code = 2823-3) 4.5 3.5-5.1 [facility] HospitalChloride Tskcq6367-15-20 01:01:00* Test Item Value Reference Range Interpretation Comments Chloride Level (test code = 2075-0) 103 98-107 [facility] HospitalCarbon Dioxide Zfnew5979-74-58 01:01:00* Test Item Value Reference Range Interpretation Comments Carbon Dioxide Level (test code = 2028-9) 30 22-29 H [facility] HospitalAnion Lhh0416-51-48 01:01:00* Test Item Value Reference Range Interpretation Comments Anion Gap (test code = 22961-9) 13.5 8-16 [facility] HospitalBlood Urea Hobymyyn9602-70-82 01:01:00* Test Item Value Reference Range Interpretation Comments Blood Urea Nitrogen (test code = 3094-0) 19 7-26 [facility] HospitalCreatinine2018-04-23 01:01:00* Test Item Value Reference Range Interpretation Comments Creatinine (test code = 2160-0) 1.25 0.72-1.25 [facility] HospitalBUN/Creatinine Pjuvg9307-90-97 01:01:00* Test Item Value Reference Range Interpretation Comments BUN/Creatinine Ratio (test code = 3097-3) 15 6-25 [facility] HospitalEstimat Glomerular Filtration Rate 2017-08-28 01:01:00* Test Item Value Reference Range Interpretation Comments Estimat Glomerular Filtration Rate (test code = 97496-0) 56 >60 L Ranges were taken from the National Kidney Disease Education Program and the [facility] literature.Reference ranges:60 or greater: Niwpdt32-28 ( for 3 consecutive months): Chronic kidney disease 15 or less: Kidney failureFormerly [facility] HospitalGlucose Tkbme5548-98-49 01:01:00* Test Item Value Reference Range Interpretation Comments Glucose Level (test code = III6807) 126 74-118 H [facility] HospitalCalcium Nhtmt4723-39-31 01:01:00* Test Item Value Reference Range Interpretation Comments Calcium Level (test code = 83834-2) 9.6 8.4-10.2 [facility] HospitalTotal Aqzhodnak7534-30-81 01:01:00* Test Item Value Reference Range Interpretation Comments Total Bilirubin (test code = 1975-2) 0.4 0.2-1.2 [facility] HospitalAspartate Amino Transf (AST/SGOT) 2017-08-28 01:01:00* Test Item Value Reference Range Interpretation Comments Aspartate Amino Transf (AST/SGOT) (test code = Aspartate Amino Transf (AST/SGOT)) 23 5-34 [facility] HospitalAlanine Aminotransferase (ALT/SGPT) 2017-08-28 01:01:00* Test Item Value Reference Range Interpretation Comments Alanine Aminotransferase (ALT/SGPT) (test code = 1742-6) 22 0-55 [facility] HospitalTotal Zgginmd4965-45-56 01:01:00* Test Item Value Reference Range Interpretation Comments Total Protein (test code = 2885-2) 7.0 6.5-8.1 [facility] HospitalAlbumin2018-04-23 01:01:00* Test Item Value Reference Range Interpretation Comments Albumin (test code = 1751-7) 4.0 3.5-5.0 [facility] HospitalGlobulin2018-04-23 01:01:00* Test Item Value Reference Range Interpretation Comments Globulin (test code = 97055-1) 3.0 2.3-3.5 [facility] HospitalAlbumin/Globulin Xiclg5431-90-73 01:01:00 * Test Item Value Reference Range Interpretation Comments Albumin/Globulin Ratio (test code = 1759-0) 1.3 0.8-2.0 [facility] HospitalAlkaline Rwednvjpqsa6304-63-34 01:01:00* Test Item Value Reference Range Interpretation Comments Alkaline Phosphatase (test code = 6768-6) 76 40-150 [facility] HospitalUrine Sngik9325-99-78 00:31:00* Test Item Value Reference Range Interpretation Comments Urine Color (test code = 5778-6) YELLOW YELLOW [facility] HospitalUrine Hieqrex3159-41-04 00:31:00* Test Item Value Reference Range Interpretation Comments Urine Clarity (test code = 79964-3) CLEAR CLEAR [facility] HospitalUrine Specific Pnhiydl9086-28-62 00:31:00 * Test Item Value Reference Range Interpretation Comments Urine Specific [place] (test code = 5811-5) 1.015 1.010-1.02 5 [facility] HospitalUrine bI4243-91-13 00:31:00* Test Item Value Reference Range Interpretation Comments Urine pH (test code = 70529-3) 7 5-7 [facility] HospitalUrine Leukocyte Agsoybpg0943-95-60 00:31:00* Test Item Value Reference Range Interpretation Comments Urine Leukocyte Esterase (test code = 5799-2) NEGATIVE NEGATIVE [facility] HospitalUrine Xveluva4122-68-08 00:31:00* Test Item Value Reference Range Interpretation Comments Urine Nitrite (test code = 86779-1) NEGATIVE NEGATIVE [facility] HospitalUrine Pdnxiyl7066-30-97 00:31:00* Test Item Value Reference Range Interpretation Comments Urine Protein (test code = 5804-0) TRACE NEGATIVE H [facility] Glucose (UA)2017-08-28 00:31:00* Test Item Value Reference Range Interpretation Comments Urine Glucose (UA) (test code = 2349-9) NEGATIVE NEGATIVE [facility] Xbytkup4388-09-22 00:31:00* Test Item Value Reference Range Interpretation Comments Urine Ketones (test code = 72784-6) NEGATIVE NEGATIVE [facility] Dtspgbwcvhlh6932-04-53 00:31:00* Test Item Value Reference Range Interpretation Comments Urine Urobilinogen (test code = 84510-0) 0.2 0.2-1 [facility] HospitalUrine Etivecdoe4016-96-61 00:31:00* Test Item Value Reference Range Interpretation Comments Urine Bilirubin (test code = 1978-6) NEGATIVE NEGATIVE [facility] HospitalUrine Dqnul0838-11-04 00:31:00* Test Item Value Reference Range Interpretation Comments Urine Blood (test code = 17979-1) TRACE NEGATIVE H [facility] HospitalUrine EQY5427-80-29 00:31:00* Test Item Value Reference Range Interpretation Comments Urine WBC (test code = 5821-4) 0-5 0-5 [facility] HospitalUrine YQE2931-04-56 00:31:00* Test Item Value Reference Range Interpretation Comments Urine RBC (test code = 11282-7) 0-5 0-5 [facility] HospitalUrine Upjzptsx1413-37-69 00:31:00* Test Item Value Reference Range Interpretation Comments Urine Bacteria (test code = 81489-8) NONE NONE [facility] HospitalUrine Epithelial Gwbke2949-14-08 00:31:00 * Test Item Value Reference Range Interpretation Comments Urine Epithelial Cells (test code = 67121-3) FEW NONE [facility] HospitalWhite Blood Wgwpz9006-81-56 00:24:00* Test Item Value Reference Range Interpretation Comments White Blood Count (test code = 6690-2) 4.96 4.8-10.8 [facility] HospitalRed Blood Wphdf0111-14-86 00:24:00* Test Item Value Reference Range Interpretation Comments Red Blood Count (test code = 789-8) 4.73 4.3-5.7 [facility] HospitalHemoglobin2018-04-23 00:24:00* Test Item Value Reference Range Interpretation Comments Hemoglobin (test code = 24672-0) 13.6 14.0-18.0 L [facility] HospitalHematocrit2018-04-23 00:24:00* Test Item Value Reference Range Interpretation Comments Hematocrit (test code = 4544-3) 41.5 38.2-49.6 [facility] HospitalMean Corpuscular Oxxjxm2144-87-67 00:24:00* Test Item Value Reference Range Interpretation Comments Mean Corpuscular Volume (test code = 787-2) 87.7 81-99 [facility] HospitalMean Corpuscular Etnewxiwjv4288-49-74 00:24:00* Test Item Value Reference Range Interpretation Comments Mean Corpuscular Hemoglobin (test code = 785-6) 28.8 28-32 [facility] HospitalMean Corpuscular Hemoglobin Concent 2017-08-28 00:24:00* Test Item Value Reference Range Interpretation Comments Mean Corpuscular Hemoglobin Concent (test code = 786-4) 32.8 31-35 [facility] HospitalRed Cell Distribution Mrekh5312-67-97 00:24:00* Test Item Value Reference Range Interpretation Comments Red Cell Distribution Width (test code = 80649-4) 14.3 11.7 -14.4 [facility] HospitalPlatelet Yqruy2554-72-58 00:24:00* Test Item Value Reference Range Interpretation Comments Platelet Count (test code = 777-3) 161 140-360 [facility] HospitalNeutrophils (%) (Auto)2017-08-28 00:24:00 * Test Item Value Reference Range Interpretation Comments Neutrophils (%) (Auto) (test code = 25253-1) 57.8 38.7-80.0 [facility] HospitalLymphocytes (%) (Auto)2017-08-28 00:24:00 * Test Item Value Reference Range Interpretation Comments Lymphocytes (%) (Auto) (test code = 736-9) 32.7 18.0-39.1 [facility] HospitalMonocytes (%) (Auto)2017-08-28 00:24:00* Test Item Value Reference Range Interpretation Comments Monocytes (%) (Auto) (test code = 5905-5) 7.5 4.4-11.3 [facility] HospitalEosinophils (%) (Auto)2017-08-28 00:24:00 * Test Item Value Reference Range Interpretation Comments Eosinophils (%) (Auto) (test code = 713-8) 1.0 0.0-6.0 [facility] HospitalBasophils (%) (Auto)2017-08-28 00:24:00* Test Item Value Reference Range Interpretation Comments Basophils (%) (Auto) (test code = 706-2) 0.8 0.0-1.0 [facility] HospitalIM GRANULOCYTES %2017-08-28 00:24:00* Test Item Value Reference Range Interpretation Comments IM GRANULOCYTES % (test code = IM GRANULOCYTES %) 0.2 0.0- 1.0 [facility] HospitalNeutrophils # (Auto)2017-08-28 00:24:00* Test Item Value Reference Range Interpretation Comments Neutrophils # (Auto) (test code = 751-8) 2.9 2.1-6.9 [facility] HospitalLymphocytes # (Auto)2017-08-28 00:24:00* Test Item Value Reference Range Interpretation Comments Lymphocytes # (Auto) (test code = 50280-3) 1.6 1.0-3.2 [facility] HospitalMonocytes # (Auto)2017-08-28 00:24:00* Test Item Value Reference Range Interpretation Comments Monocytes # (Auto) (test code = 742-7) 0.4 0.2-0.8 [facility] HospitalEosinophils # (Auto)2017-08-28 00:24:00* Test Item Value Reference Range Interpretation Comments Eosinophils # (Auto) (test code = 711-2) 0.1 0.0-0.4 [facility] HospitalBasophils # (Auto)2017-08-28 00:24:00* Test Item Value Reference Range Interpretation Comments Basophils # (Auto) (test code = 704-7) 0.0 0.0-0.1 [facility] HospitalAbsolute Immature Granulocyte (auto 2017-08-28 00:24:00* Test Item Value Reference Range Interpretation Comments Absolute Immature Granulocyte (auto (jacqueline t code = Absolute Immature Granulocyte (auto) 0.01 0-0.1 [facility] HospitalProthrombin Igks7841-36-00 13:00:00* Test Item Value Reference Range Interpretation Comments Prothrombin Time (test code = 5902-2) 17.6 11.9-14.5 H [facility] HospitalProthromb Time International Ratio 2017-03-22 13:00:00* Test Item Value Reference Range Interpretation Comments Prothromb Time International Ratio (test code = 6301-6) 1.37 Oral Anticoagulant Therapy INR Values:1. Low Intensity Therapy 1.5 - 2.02 . Moderate Intensity Therapy 2.0 - 3.03. High Intensity Therapy(1) 2.5 - 3. 54. High Intensity Therapy(2) 3.0 - 4.05. Panic Value INR > 5.0 [facility] HospitalActivated Partial Thromboplast Time 2017-03-22 13:00:00* Test Item Value Reference Range Interpretation Comments Activated Partial Thromboplast Time (test code = 27600-8) 49.4 23.8-35.5 H [facility] BNHZM2051-69-98 07:31:00* Test Item Value Reference Range Interpretation Comments POC-GLUCOSE METER (BEAKER) (test code = 1538) 170 mg/dL 70-110 H TESTED AT [facility] [address] [facility] [address] CBC (HEMOGRAM ONLY)2016-08-25 05:18:00* Test Item Value Reference Range Interpretation Comments WHITE BLOOD CELL COUNT (BEAKER) (test code = 775) 6.5 K/ L 4.0- 10.0 RED BLOOD CELL COUNT (BEAKER) (test code = 761) 4.00 M/ L 4.20-5 .80 L HEMOGLOBIN (BEAKER) (test code = 410) 11.5 GM/DL 13.0-16.8 L HEMATOCRIT (BEAKER) (test code = 411) 36.8 % 40.0-50.0 L MEAN CORPUSCULAR VOLUME (BEAKER) (test code = 753) 92.0 fL 82. 0-98.0 MEAN CORPUSCULAR HEMOGLOBIN (BEAKER) (test code = 751) 28.8 pg 27.0-33.0 MEAN CORPUSCULAR HEMOGLOBIN CONC (BEAKER) (test code = 752) 31.3 GM/DL 32.0-36.0 L RED CELL DISTRIBUTION WIDTH (BEAKER) (test code = 412) 14.1 % 10.3-14.2 PLATELET COUNT (BEAKER) (test code = 756) 139 K/CU MM 150-430 L MEAN PLATELET VOLUME (BEAKER) (test code = 754) 6.7 fL 6.5-10 .5 NUCLEATED RED BLOOD CELLS (BEAKER) (test code = 413) 0 /100 WBC 0 -0 0.91AST4360-76-37 05:13:00* Test Item Value Reference Range Interpretation Comments BLOOD UREA NITROGEN (BEAKER) (test code = 354) 18 mg/dL 7-21 YAKPUDAWCCRK0455-57-30 05:13:00* Test Item Value Reference Range Interpretation Comments SODIUM (BEAKER) (test code = 381) 137 meq/L 136-145 POTASSIUM (BEAKER) (test code = 379) 4.3 meq/L 3.5-5.1 Specimen slightly hemolyzed CHLORIDE (BEAKER) (test code = 382) 107 meq/L 98-107 CO2 (BEAKER) (test code = 355) 22 meq/L 22-29 QFYIGMBDJP3835-05-53 05:13:00* Test Item Value Reference Range Interpretation Comments CREATININE (BEAKER) (test code = 358) 1.07 mg/dL 0.57-1.25 Specimen slightly hemolyzed EGFR (BEAKER) (test code = 1092) 68 mL/min/1.73 sq m ESTIMATED GFR IS NOT ACCURATE CREATININE CLEARANCE IN PREDICTING GLOMERULAR FILTRATION RATE. ESTIMATED GFR IS NOT APPLICABLE FOR DIALYSIS PATIENTS. POCT-GLUCOSE IJQTH0432-76-73 21:36:00* Test Item Value Reference Range Interpretation Comments POC-GLUCOSE METER (BEAKER) (test code = 1538) 127 mg/dL 70-110 H TESTED AT [place] [address] POCT-GLUCOSE NTEQJ7770-85-27 13:44:00* Test Item Value Reference Range Interpretation Comments POC-GLUCOSE METER (BEAKER) (test code = 1538) 142 mg/dL 70-110 H TESTED AT [place] [address] KBKL-[id number] 11:45:00* Test Item Value Reference Range Interpretation Comments ACTIVATED CLOTTING TIME (BEAKER) (test code = 441) 137 sec TESTED AT [place] [address] HEYF-ZNS7456-00-19 10:38:00* Test Item Value Reference Range Interpretation Comments ACTIVATED CLOTTING TIME (BEAKER) (test code = 441) 358 sec TESTED AT [place] [address] PIQM-TUN5782-82-19 10:10:00* Test Item Value Reference Range Interpretation Comments ACTIVATED CLOTTING TIME (BEAKER) (test code = 441) 379 sec TESTED AT [place] [address] VNGK-TCU5429-28-19 09:56:00* Test Item Value Reference Range Interpretation Comments ACTIVATED CLOTTING TIME (BEAKER) (test code = 441) 296 sec TESTED AT [place] [address] CWXY-YUT5148-08-19 09:37:00* Test Item Value Reference Range Interpretation Comments ACTIVATED CLOTTING TIME (BEAKER) (test code = 441) 296 sec TESTED AT [facility] [address] [facility] [address] GJZB-OQSOHCYRID4999-00-17 09:10:00* Test Item Value Reference Range Interpretation Comments POC-CREATININE (BEAKER) (test code = 1859) 1.1 mg/dL 0.6-1.3 TESTED AT [facility] [address] [facility] [address] POC-EGFR (BEAKER) (test code = 1860) 65 mL/min/1.73M2 [id number] 08:34:00* Test Item Value Reference Range Interpretation Comments PARTIAL THROMBOPLASTIN TIME (BEAKER) (test code = 760) 59.3 seconds 22.5-36.0 H PROTHROMBIN TIME/FUZ2227-48-13 08:32:00* Test Item Value Reference Range Interpretation Comments PROTIME (BEAKER) (test code = 759) 21.4 seconds 11.7-14.7 H INR (BEAKER) (test code = 370) 1.9 <=5.9 RECOMMENDED COUMADIN/WARFARIN INR THERAPY RANGESSTANDARD DOSE: 2.0 - 3.0 Inclu leonor: PROPHYLAXIS for venous thrombosis, systemic embolization; TREATMENT for estevan ous thrombosis and/or pulmonary embolus.HIGH RISK: Target INR is 2.5-3.5 for pat ients with mechanical heart valves.BASIC METABOLIC [id number] 08:26:00* Test Item Value Reference Range Interpretation Comments SODIUM (BEAKER) (test code = 381) 141 meq/L 136-145 POTASSIUM (BEAKER) (test code = 379) 4.7 meq/L 3.5-5.1 CHLORIDE (BEAKER) (test code = 382) 106 meq/L 98-107 CO2 (BEAKER) (test code = 355) 28 meq/L 22-29 BLOOD UREA NITROGEN (BEAKER) (test code = 354) 21 mg/dL 7-21 CREATININE (BEAKER) (test code = 358) 1.21 mg/dL 0.57-1.25 GLUCOSE RANDOM (BEAKER) (test code = 652) 118 mg/dL 70-105 H CALCIUM (BEAKER) (test code = 697) 8.8 mg/dL 8.4-10.2 EGFR (BEAKER) (test code = 1092) 59 mL/min/1.73 sq m ESTIMATED GFR IS NOT ACCURATE CREATININE CLEARANCE IN PREDICTING GLOMERULAR FILTRATION RATE. ESTIMATED GFR IS NOT APPLICABLE FOR DIALYSIS PATIENTS. CBC (HEMOGRAM ONLY)2016-08-22 08:13:00* Test Item Value Reference Range Interpretation Comments WHITE BLOOD CELL COUNT (BEAKER) (test code = 775) 5.3 K/ L 4.0- 10.0 RED BLOOD CELL COUNT (BEAKER) (test code = 761) 4.50 M/ L 4.20-5 .80 HEMOGLOBIN (BEAKER) (test code = 410) 13.1 GM/DL 13.0-16.8 HEMATOCRIT (BEAKER) (test code = 411) 41.0 % 40.0-50.0 MEAN CORPUSCULAR VOLUME (BEAKER) (test code = 753) 91.1 fL 82. 0-98.0 MEAN CORPUSCULAR HEMOGLOBIN (BEAKER) (test code = 751) 29.0 pg 27.0-33.0 MEAN CORPUSCULAR HEMOGLOBIN CONC (BEAKER) (test code = 752) 31.9 GM/DL 32.0-36.0 L RED CELL DISTRIBUTION WIDTH (BEAKER) (test code = 412) 14.1 % 10.3-14.2 PLATELET COUNT (BEAKER) (test code = 756) 159 K/CU MM 150-430 MEAN PLATELET VOLUME (BEAKER) (test code = 754) 6.2 fL 6.5-10 .5 L NUCLEATED RED BLOOD CELLS (BEAKER) (test code = 413) 0 /100 WBC 0 -0 0.00CHEST 2 VIEWS [place] [address] Patient Name: ELVIS LIPSCOMB MR #: [id number] : 1940 Age/Sex: 77/M Req #: [id number] Adm Physician: Ordered by: GREGORY GASTELUM MD Report #: [id number] Location: Room/Bed: Procedure: [id number] DX/CHEST 2 VIEWS Exam Date: 0 08/28/17 Exam Time: 0021 REPORT STATUS: Signed CHEST 2 VIEWS, Technique: CHEST 2 VIEWS Comparison: 06/24/2016 Cli nical history: Atrial fibrillation DISCUSSION: Stable left chest wall d ual-lead pacer. Scattered metallic fragments overlie the chest. Stable cardiom egaly with tortuous or ectatic aorta. No consolidation or edema. No effusion o r pneumothorax. IMPRESSION: No acute abnormality Signed by: Dr Nellie Cunningham MD on 08/28/2017 12:42 AM Dictated By: NELLIE CUNNINGHAM MD Elect ronically Signed By: NELLIE CUNNINGHAM MD on 08/28/1741 Transcribed By: RONALD Merchant on 08/28/1741 COPY TO: GREGORY GASTELUM MD
--- NOTE | 2020-01-12 11:32 | NUR ---
meds given per 's orders
[2020-01-12 11:34] LABS: BASOPHILS # (AUTO) 0.1 (0.0-0.1); BASOPHILS % 0.7 % (0.0-1.0); EOSINOPHILS % 0.3 % (0.0-6.0); HEMATOCRIT 43.3 % (38.2-49.6); HEMOGLOBIN 13.6 g/dL (14.0-18.0); LYMPHOCYTES # (AUTO) 1.3 (1.0-3.2); LYMPHOCYTES % 18.9 % (18.0-39.1); MEAN CORPUSCULAR HGB CONC 31.4 g/dL (31-35); MEAN CORPUSCULAR VOLUME 89.3 fL (81-99); MONOCYTES # (AUTO) 0.4 (0.2-0.8); MONOCYTES % 6.5 % (4.4-11.3); NEUTROPHILS # (AUTO) 4.9 (2.1-6.9); NEUTROPHILS % 73.2 % (38.7-80.0); PLATELET COUNT 143 x10e3/uL (140-360); RED BLOOD COUNT 4.85 x10e6/uL (4.3-5.7); RED CELL DISTRIBUTION WIDTH 16.7 % (11.7-14.4)
[2020-01-12 11:43] LABS: INR 1.25; PROTHROMBIN TIME 16.3 seconds (11.9-14.5)
[2020-01-12 11:44] LABS: CLARITY,URINE CLEAR (CLEAR); COLOR,URINE YELLOW (YELLOW); LEUKOCYTE ESTERASE ,URINE NEGATIVE (NEGATIVE); NITRITE,URINE NEGATIVE (NEGATIVE); PARTIAL THROMBOPLASTIN TIME 34.9 seconds (23.8-35.5)
[2020-01-12 11:45] LABS: BILIRUBIN,URINE NEGATIVE (NEGATIVE); KETONES,URINE NEGATIVE (NEGATIVE); PROTEIN,URINE DIPSTICK NEGATIVE (NEGATIVE); URINE UROBILINOGEN 0.2 mg/dL (0.2 - 1)
[2020-01-12 11:50] LABS: BACTERIA,URINE RARE /HPF; EPITHELIAL CELLS,URINE FEW /LPF; RBC,URINE 0-5 /HPF (0-5); WBC,URINE (MAN) 0-5 /HPF (0-5)
[2020-01-12 11:51] LABS: ALBUMIN 4.9 g/dL (3.5-5.0); ANION GAP 19.3 mmol/L (8-16); CALCIUM 9.6 mg/dL (8.4-10.2); CREATININE, SERUM 1.62 mg/dL (0.72-1.25); MAGNESIUM 1.8 MG/DL (1.3-2.1); POTASSIUM 4.3 mmol/L (3.5-5.1)
[2020-01-12 11:57] LABS: CREATINE KINASE MB 3.6 ng/mL (0-5.0)
[2020-01-12] MEDS ORDERED: MORPHINE SULFATE 2 MG/ML SYR 1ML IV ONE (12:00)
[2020-01-12] MEDS ORDERED: IOPAMIDOL 370 MG/ML 200 ML INFUS..BTL INJ ONE (12:32)
[2020-01-12] MEDS ORDERED: SODIUM CHLORIDE 0.9% 50ML 50 ML ONE (12:32)
--- NOTE | 2020-01-12 12:33 | Emergency Department Note ---
History of Present Illnes History of Present Illness Chief Complaint: Abdominal Complaints History of Present Illness This is a 79 year old male PT UPPER ABD PAIN ONSET 10 AM. PT AAOX4. AMBULATORY. PT RECENT EGD BY DR JOHNSTON. HX HITAL HERNIA. NO VOMITING NO DIARRHEA. 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 LAST BM MONDAY. Historian: Patient Arrival Mode: Car Precipitate Washer Required: No Onset (how long ago): hour(s) Location: LOWER ABD PAIN Quality: PAIN Radiation: Reports non-radiation Severity: severe Onset quality: sudden Timing of current episode: intermittent Progression: waxing and waning Chronicity: new Context: Denies recent illness Relieving factors: none Exacerbating factors: none Associated symptoms: Reports denies other symptoms Treatments prior to arrival: none Past Medical/Family History Physician Review I have reviewed the patient's past medical and family history. Any updates have been documented here. Past Medical History Recent Fever: No Clinical Suspicion of Infectio: No New/Unexplained Change in Ment: No Past Medical History: Hypertension, Diabetes, CHF, [place], A-Fib, CAD, Liver Disease Other Medical History: ENLARGED PROSTATE [place] FATTY LIVER Past Surgical History: Cholecysctectomy, Appendectomy, Pacer/AICD Other Surgery: TURP 18 PACEMAKER GB APPY BOWEL OBSTRUCTION AT 29 DAYS OLD HEART ABLATION HEART STENTS X2 Social History Smoking Cessation: Never Smoker Counseling Performed: No Alcohol Use: None Any Illegal Drug Use: No TB Exposure/Symptoms: No Physically hurt or threatened: No Family History Family history of heart diseas: No Other Last Tetanus: <10 YRS Any Pre-Existing Lines (PICC,: No Review of Systems Review of Systems Constitutional: Reports no symptoms EENTM: Reports no symptoms Cardiovascular: Reports no symptoms Respiratory: Reports no symptoms Gastrointestinal: Reports as per HPI Genitourinary: Reports no symptoms Musculoskeletal: Reports no symptoms Integumentary: Reports no symptoms Neurological: Reports no symptoms Psychological: Reports no symptoms Endocrine: Reports no symptoms Hematological/Lymphatic: Reports no symptoms Physical Exam Related Data Allergies: Coded Allergies: No Known Drug Allergies (Verified Allergy, Unknown, 01/12/20) codeine (Verified Adverse Reaction, Severe, HALLUCINATIONS, 01/12/20) Triage Vital Signs Vital Signs Date Time Temp Pulse Resp B/P (MAP) Pulse Ox O2 Delivery O2 Flow Rate FiO2 01/12/20 10:55 97.6 87 16 152/99 100 Room Air Vital signs reviewed: Yes Physical Exam CONSTITUTIONAL Constitutional: Present well-developed, Present well-nourished HENT HENT: Present normocephalic, Present atraumatic, Present oropharynx clear/moist, Present nose normal HENT L/R: Present left ext ear normal, Present right ext ear normal EYES Eyes: Reports PERRL, Reports conjunctivae normal NECK Neck: Present ROM normal PULMONARY Pulmonary: Present effort normal, Present breath sounds normal CARDIOVASCULAR Cardiovascular: Present irregular rhythm, Present heart sounds normal, Present normal rate; Absent LLE edema, Absent RLE edema GASTROINTESTINAL Abdominal: Present soft, Present tender (moderate diffuse tenderness without R/G), Present other (hypoactive BS's, LARGE LEFT INGUINAL HERNIA VERY TENDER AND NOT REDUCIBLE (PATIENT SAYS THIS HERNIA HAS BEEN THERE FOR 6 MONTHS BUT NOT TENDER UNTIL TODAY)) GENITOURINARY Genitourinary: Present exam deferred SKIN Skin: Present warm, Present dry MUSCULOSKELETAL Musculoskeletal: Present ROM normal NEUROLOGICAL Neurological: Present alert, Present oriented x 3, Present no gross motor or sensory deficits PSYCHOLOGICAL Psychological: Present mood/affect normal, Present judgement normal Results Laboratory Result Diagram: 01/12/20 1117 01/12/20 1117 Laboratory Laboratory Tests Test 01/12/20 11:17 White Blood Count 6.73 x10e3/uL (4.8-10.8) Red Blood Count 4.85 x10e6/uL (4.3-5.7) Hemoglobin 13.6 g/dL (14.0-18.0) Hematocrit 43.3 % (38.2-49.6) Mean Corpuscular Volume 89.3 fL (81-99) Mean Corpuscular Hemoglobin 28.0 pg (28-32) Mean Corpuscular Hemoglobin Concent 31.4 g/dL (31-35) Red Cell Distribution Width 16.7 % (11.7-14.4) Platelet Count 143 x10e3/uL (140-360) Neutrophils (%) (Auto) 73.2 % (38.7-80.0) Lymphocytes (%) (Auto) 18.9 % (18.0-39.1) Monocytes (%) (Auto) 6.5 % (4.4-11.3) Eosinophils (%) (Auto) 0.3 % (0.0-6.0) Basophils (%) (Auto) 0.7 % (0.0-1.0) Neutrophils # (Auto) 4.9 (2.1-6.9) Lymphocytes # (Auto) 1.3 (1.0-3.2) Monocytes # (Auto) 0.4 (0.2-0.8) Eosinophils # (Auto) 0.0 (0.0-0.4) Basophils # (Auto) 0.1 (0.0-0.1) Absolute Immature Granulocyte (auto 0.03 x10e3/uL (0-0.1) Prothrombin Time 16.3 seconds (11.9-14.5) Prothromb Time International Ratio 1.25 Activated Partial Thromboplast Time 34.9 seconds (23.8-35.5) Urine Color Yellow (YELLOW) Urine Clarity Clear (CLEAR) Urine pH 5 (5 - 7) Urine Specific [place] 1.020 (1.010-1.025) Urine Protein Negative (NEGATIVE) Urine Glucose (UA) Negative (NEGATIVE) Urine Ketones Negative (NEGATIVE) Urine Blood Negative (NEGATIVE) Urine Nitrite Negative (NEGATIVE) Urine Bilirubin Negative (NEGATIVE) Urine Urobilinogen 0.2 mg/dL (0.2 - 1) Urine Leukocyte Esterase Negative (NEGATIVE) Urine RBC 0-5 /HPF (0-5) Urine WBC 0-5 /HPF (0-5) Urine Epithelial Cells Few /LPF (NONE) Urine Bacteria Rare /HPF (NONE) Sodium Level 137 mmol/L (136-145) Potassium Level 4.3 mmol/L (3.5-5.1) Chloride Level 100 mmol/L (98-107) Carbon Dioxide Level 22 mmol/L (22-29) Anion Gap 19.3 mmol/L (8-16) Blood Urea Nitrogen 23 mg/dL (7-26) Creatinine 1.62 mg/dL (0.72-1.25) Estimat Glomerular Filtration Rate 42 ML/MIN (60-) BUN/Creatinine Ratio 14 (6-25) Glucose Level 144 mg/dL (74-118) Calcium Level 9.6 mg/dL (8.4-10.2) Magnesium Level 1.8 MG/DL (1.3-2.1) Total Bilirubin 1.6 mg/dL (0.2-1.2) Aspartate Amino Transf (AST/SGOT) 33 IU/L (5-34) Alanine Aminotransferase (ALT/SGPT) 35 IU/L (0-55) Alkaline Phosphatase 103 IU/L (40-150) Creatine Kinase 95 IU/L (30-200) Creatine Kinase MB 3.60 ng/mL (0-5.0) Troponin I 0.023 ng/mL (0-0.300) B-Type Natriuretic Peptide 875.9 pg/mL (0-100) Total Protein 7.3 g/dL (6.5-8.1) Albumin 4.9 g/dL (3.5-5.0) Globulin 2.4 g/dL (2.3-3.5) Albumin/Globulin Ratio 2.0 (0.8-2.0) Amylase Level 116 U/L (25-125) Lipase 81 U/L (8-78) Lab results reviewed: Yes Imaging Imaging results reviewed: Yes Procedures 12 Lead ECG Interpretation ECG Interpretation : ECG: ECG 1 Precipitate Washer: Interpreted by ED physician Date: Jan 12, 2020 Time: 11:13 Rhythm: atrial fibrillation (with RVR) Rate: tachycardia BPM: 110 QRS axis: left Conduction: right bundle branch block ST segments normal: Yes T wave inversion: aVR, V1, V2, V3 Clinical Impression: abnormal ECG Critical Care Time Total Critical Care Time (min): 30 Critical care time exclusive o: separately billable procedures Critcal care necessary due to: other Critcal care time spent by me: discussion w consultants, discussion w primary provider, order/perform tx or interventions, order/review laboratory studies, order/review radiographic studies, re-evaluation of patient condition Assessment & Plan Medical Decision Making MDM ABD PAIN - CBC, CHEM, AMYLASE/LIPASE, ECG, CARDIACS, UA/CX, CXR, CT ABD/PELVIS - R/O SBO, STRANGULATED LEFT ING HERNIA, UTI, RENAL INSUFF, STEMI/NSTEMI, ELECTR OLYTE ABNL Reassessment Reassessment CT FINDINGS SUGGESTIVE OF INCARCERATED HERNIA - DR AMBROSIO NOTIFIED AND WILL SEE PT WHEN HE IS DONE WITH OR CASE AT [facility], SPOKE WITH DR CABELLO FOR ADMISSION Assessment & Plan Final Impression: (1) Incarcerated inguinal hernia (2) Chronic a-fib Depart Disposition: ADMITTED Last Vital Signs Date Time Temp Pulse Resp B/P (MAP) Pulse Ox O2 Delivery O2 Flow Rate FiO2 01/12/20 11:45 84 15 149/88 98 Room Air 01/12/20 10:55 97.6 Home Meds Reported Medications Enoxaparin Sodium (LOVENOX) 60 Mg/0.6 Ml Inj, SC DAILY, #7 SYR 09/26/18 Spironolactone (SPIRONOLACTONE) 25 Mg Tablet, 2.5 MG PO BID, #60 TAB 09/26/18 [Allergy Pill] No Conflict Check 09/25/18 [Folic Acid] No Conflict Check, 400 MG DAILY 09/25/18 [Vitamin D3] No Conflict Check, 125 MCG DAILY 09/25/18 Fish Oil/Dha/Epa (FISH OIL 1,200 MG FISH OIL) 1 Each Capsule, 1 CAP PO DAILY 07/17/18 Ubidecarenone (CO Q-10) 100 Mg Capsule, 100 MG PO DAILY 07/17/18 Digoxin (DIGOXIN) 125 Mcg Tablet, 0.125 MG PO HS, #30 TAB 07/17/18 Finasteride (FINASTERIDE) 5 Mg Tablet, 5 MG PO HS, #30 TAB 07/17/18 Furosemide (LASIX) 20 Mg Tablet, 40 MG PO DAILY, #30 TAB 05/29/18 Midodrine Hcl (MIDODRINE HCL) 2.5 Mg Tablet, 2.5 MG PO BID 05/24/18 [Eliquis] 2.5 No Conflict Check, 2.5 MG PO BID 05/24/18 Metoprolol Succinate (METOPROLOL SUCCINATE) 25 Mg Tab.er.24h, 12.5 MG PO BID 05/24/18 Clonazepam (CLONAZEPAM) 0.5 Mg Tab.rapdis, 0.5 MG PO HS PRN for ANXIETY 12/17/17 Clopidogrel Bisulfate* (PLAVIX) 75 Mg Tablet, 75 MG PO DAILY, #30 TAB 03/22/17 Medications in the ED Pantoprazole Sodium 40 mg ONCE IV Last administered on 01/12/20at 11:32; Admin Dose 40 MG; Start 01/12/20 at 11:00; Stop 01/12/20 at 12:59 Ondansetron HCl 4 mg ONCE IV Last administered on 01/12/20at 11:32; Admin Dose 4 MG; Start 01/12/20 at 11:00; Stop 01/12/20 at 11:59; Status DC Sodium Chloride 1,000 ml @ 0 mls/hr Q0M STAT IV Last administered on 01/12/20at 11:31; Admin Dose 999 MLS/HR; Start 01/12/20 at 10:59; Stop 01/12/20 at 11:03; Status DC Dicyclomine HCl 20 mg ONCE ONCE IM Last administered on 01/12/20at 11:32; Admin Dose 20 MG; Start 01/12/20 at 11:00; Stop 01/12/20 at 11:03; Status DC Morphine Sulfate 4 mg NOW ONCE IV Last administered on 01/12/20at 12:06; Admin Dose 4 MG; Start 01/12/20 at 12:00; Stop 01/12/20 at 12:01; Status DC GREGORY GASTELUM MD Jan 12, 2020 12:33
--- NOTE | 2020-01-12 12:44 | Diagnostic Imaging Report ---
EXAMINATION: CHEST SINGLE (PORTABLE) INDICATION: abd pain COMPARISON: None FINDINGS: AP view TUBES and LINES: The pacemaker is intact. . LUNGS/PLEURA: Lungs are well inflated. There is no evidence of pneumonia or pulmonary edema.. There is no pleural effusion or pneumothorax. HEART AND MEDIASTINUM: Cardiac size is mildly enlarged. BONES AND SOFT TISSUES: No acute osseous lesion. Soft tissues are unremarkable. UPPER ABDOMEN: No free air under the diaphragm. IMPRESSION: No acute thoracic abnormality. Mild cardiomegaly. Signed by: Jayy Miramontes MD on 01/12/2020 12:41 PM
--- NOTE | 2020-01-12 13:46 | Diagnostic Imaging Report ---
EXAM: CT Abdomen and Pelvis WITH contrast INDICATION: ABD PAIN, DIFFUSE COMPARISON: CT abdomen and pelvis dated 11/14/2019. TECHNIQUE: Abdomen and pelvis were scanned utilizing a multidetector helical scanner from the lung base to the pubic symphysis after administration of IV contrast. Coronal and sagittal reformations were obtained. Dose modulation, iterative reconstruction, and/or weight based adjustment of the mA/kV was utilized to reduce the radiation dose to as low as reasonably achievable. Routine protocol was performed. Scan was performed when during portal venous phase. IV CONTRAST: 150 mL of Omnipaque 300 ORAL CONTRAST: Water COMPLICATIONS: None RADIATION DOSE: Total DLP: 832.71 mGy-cm Estimated effective dose: (DLP x 0.015 x size factor) mSv CTDIvol has been reviewed. It is below the limits set by the Radiation Protocol Committee (RPC). FINDINGS: LINES and TUBES: Dual-chamber pacemaker wires in the cardiac chambers on the right side. LOWER THORAX: Unchanged small right pleural effusion with associated atelectasis. 4 mm calcified granuloma in the left lower lobe (series 2, image 4), unchanged. HEPATOBILIARY: The liver is diffuse hypodense compared to the spleen, consistent with diffuse hepatic diffuse hepatic steatosis. The liver contour is slightly lobulated. No focal hepatic lesions. No biliary ductal dilation. GALLBLADDER: There are cholecystectomy clips. SPLEEN: No splenomegaly. No focal splenic lesion. PANCREAS: No focal masses or ductal dilatation. ADRENALS: No adrenal nodules KIDNEYS/URETERS: Kidneys enhance symmetrically. No hydronephrosis. Small right exophytic renal cyst measuring approximately 1.5 x 1.1 cm, unchanged. No stones. GI TRACT: In addition to below mentioned finding, no abnormal distention, wall thickening, or evidence of bowel obstruction. PELVIC ORGANS/BLADDER: The bladder is unremarkable. There is prostamegaly. LYMPH NODES: No lymphadenopathy. VESSELS: No aortic aneurysm or dissection. PERITONEUM / RETROPERITONEUM: No free air or fluid. BONES: Unremarkable. SOFT TISSUES: Large left inguinal hernia containing loop of small bowel. There is mild wall thickening of the loop of bowel seen in the hernia sac, indeterminate. No pneumatosis. No evidence of obstruction. Small fat and fluid containing right inguinal hernia IMPRESSION: 1. Large left inguinal hernia containing loop of small bowel. There is mild wall thickening of the loop of bowel seen in the hernia sac , indeterminate. Ischemia could not be excluded. This finding is new from prior exam. No pneumatosis. No evidence of obstruction. 2. Unchanged small fat and fluid containing right inguinal hernia. 3. Unchanged small right pleural effusion with associated atelectasis. Findings were discussed with Dr. Liang at 1:40 PM on 01/12/2020 Signed by: Jayy Miramontes MD on 01/12/2020 1:43 PM
--- NOTE | 2020-01-12 14:01 | NUR ---
dr. alegre in to see the pt. and update him
[2020-01-12] MEDS ORDERED: MORPHINE SULFATE 2 MG/ML SYR 1ML IV NR (14:02)
[2020-01-12] MEDS ORDERED: MORPHINE SULFATE 2 MG/ML SYR 1ML IV PRN (14:15)
[2020-01-12] MEDS ORDERED: ONDANSETRON HCL INJ 2MG/ML 2ML 2 MG/ML VIAL IV PRN (14:15)
[2020-01-12] MEDS ORDERED: ROCURONIUM BROMIDE 10 MG/ML 5ML VIAL IV ONE (14:17)
[2020-01-12] MEDS ORDERED: NEOSTIGMINE 1 MG/ML 10ML VIAL ONE (14:17)
[2020-01-12] MEDS ORDERED: ONDANSETRON HCL INJ 2MG/ML 2ML 2 MG/ML VIAL ONE (14:17)
[2020-01-12] MEDS ORDERED: LIDOCAINE HCL 2% LOCAL INJ 5 ML SDV VIAL INJ ONE (14:17)
[2020-01-12] MEDS ORDERED: CEFAZOLIN SOD 1 GM VIAL ONE (14:17)
[2020-01-12] MEDS ORDERED: GLYCOPYRROLATE INJ 0.2 MG/ML VIAL ONE (14:17)
[2020-01-12] MEDS ORDERED: PROPOFOL IV EMULSION 10 MG/ML 20 ML VIAL ONE (14:17)
[2020-01-12] MEDS ORDERED: SUCCINYLCHOLINE CHLORIDE 20 MG/ML 10ML VIAL ONE (14:17)
[2020-01-12] MEDS ORDERED: SEVOFLURANE INHAL SOLN 250 ML PEN BTL ONE (14:17)
[2020-01-12] MEDS: PIPER-TAZ 3.375 GM / NS 50ML IV SCH ×2 (14:45→21:14)
[2020-01-12] MEDS: SODIUM CHLORIDE 0.9% 1000ML 1,000 ML IV SCH ×2 (14:45→21:14)
--- NOTE | 2020-01-12 14:45 | NUR ---
dr. salinas in to see the pt.
--- OUTSIDE RECORDS SUMMARY | 2020-01-12 14:54 | XMS REPORT | Clinical Summary ---
Author Author [facility] Address Unknown Phone Unavailable Care Team Providers Care Marketing Strategist Name Role Phone Kyle Dodge MD PCP [phone] Allergies Comments Active Allergy Reactions Severity Noted Date HALLUCINATIONS Codeine 02/15/2016 Sore joints Favgzpp-Nzd-Ftv Reductase Other (See Low 09/2015 Inhibitors Comments) [...] Date A-fib 08/24/2016 CAD (coronary artery disease), [place] coronary artery 02/10/2016 DM (diabetes mellitus) type [...] CROSS/BLUE SHIELD BCBS xxxxxxxxxxxx PPO [address] [place] [address] [place] [address] Advance Directives For more information, please contact: [facility] [address] [place] [address] Date Inactivated Comments Code Status [...]
--- OUTSIDE RECORDS SUMMARY | 2020-01-12 14:54 | XMS REPORT | Clinical Summary ---
Author Author [facility] Address Unknown Phone Unavailable Care Team Providers Care Belt Molder Name Role Phone Kyle Dodge MD PCP Allergies Comments Active Allergy Reactions Severity Noted Date hallucinations Codeine 03/26/2018 Sore joints Ajkkwhs-Qum-Zic Reductase Other (See Low 09/2015 Inhibitors Comments) [...] 0 capsule by mouth daily. 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
--- OUTSIDE RECORDS SUMMARY | 2020-01-12 14:55 | XMS REPORT | Continuity of Care Document ---
Author Author [facility] t Organization [facility] Address [address] [place] [address] Phone Unavailable Care Team Providers Care Varnish Cooker Name Role Phone Quentin CABELLO MD PCP Daniel LIANG Attphys Unavailable IVAN COLE Attphys Unavailable RAJINDER GAMA Attphys Unavailable YENI STEPHENS Attphys Unavailable RUBI STEWART Attphys Unavailable Randy VOSS Attphys Unavailable Quentin CABELLO Attphys Unavailable Rafaela RAMIRES Attphys Unavailable ALFONSO CLEMENTS Attphys Unavailable RUBI STEWART Admphys Unavailable Quentin CABELLO Admphys Unavailable ALFONSO CLEMENTS Admphys Unavailable Payers Payer Name Policy Type Policy Number Effective Date Expiration Date Quentin pickard Medicare A & B [id number] 2007 00:00:00 Rafaela ZHAGN [facility] [id number] 2007 00:00:00 [facility] Problems Condition Name Condition Details Condition Category Status Onset Date Resolution Date Last Treatment Date Treating Clinician Comments Source Urinary retention Urinary retention Disease Active 2018-04-11 00:00:00 [facility] Leal Enlarged prostate with urinary obstruction Enlarged pr ostate with urinary obstruction Disease Active 2018-04-03 00:00:00 [facility] Le[facility] A-fib A-fib Disease Active 2016-08-24 00:00:00 [facility] CAD (coronary artery disease), [place] coronary artery CAD (coronary artery disease), [place] coronary artery Disease Active 2016-02-10 00:00:00 [facility] DM (diabetes mellitus) type II controlled, 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, neurological manifestation Disease Active 2016-02-10 00:00:00 [facility] BPH (benign prostatic hyperplasia) BPH (benign prostatic hyperpl jocelyn) Disease Active 2016-02-10 00:00:00 [facility] HTN (hypertension) HTN (hypertension) Disease Active 2016-02-10 00:00:0 0 [facility] PAF (paroxysmal atrial fibrillation) PAF (paroxysmal atrial fibrillation) Disease Active 2016-02-10 00:00:00 [facility] Hyperlipemia Hyperlipemia Disease Active 2016-02-10 00:00:00 [facility] Chest pain Chest pain Problem Active 2016-02-02 00:00:00 [facility] Atrial fibrillation with rapid ventricular response At [facility] fibrillation with rapid ventricular response Problem Active 2014-10-07 00:00:00 [facility] Chronic atrial fibrillation Chronic a-fib Problem Active [facility] Multiple gallstones Gallstones Problem Active [facility] Intractable abdominal pain Intractable abdominal pain Problem Active [facility] Acute retention of urine Acute urinary retention Problem Active [facility] Epistaxis Epistaxis Problem Active [facility] Anemia Anemia Problem Active [facility] Allergies, Adverse Reactions, Alerts Allergy Name Allergy Type Status Severity Reaction(s) Onset Date Inacti ve Date Treating Clinician Comments Source Codeine Allergy to Substance Active Severe HALLUCINATIONS 2018-07-17 0 0:00:00 [facility] codeine DA Active U 2018-05-16 00:00:00 [facility] codeine DA Active U 2018-04-18 00:00:00 [facility] Codeine Propensity to adverse reactions to drug Active 2018-03-26 00:00:00 hallucinations [facility] Maeist Codeine Propensity to adverse reactions Active 00:00:00 HALLUCINATIONS [facility] Pubpfqa-Dgy-Emu Reductase Inhibitors Propensity to adverse r eactions to drug Active Other (See Comments) 2016-02-10 00:00:00 Sore joints Watson Leal Eqffkri-Ued-Xoz Reductase Inhibitors Drug Intolerance Active Other (See Comments) 2016-02-10 00:00:00 Sore joints [facility] CODEINE DA Active U 2008-09-27 00:00:00 [facility] No Known Contrast Allergies DA Active U 2008-09-27 00:00: 00 [facility] No Known Food Allergies DA Active U 2008-09-27 00:00:00 [facility] No Known Other Allergies DA Active U 2008-09-27 00:00:00 [facility] Social History Social Habit Start Date Stop Date Quantity Comments Source History SDOH Alcohol Std Drinks [facility] History SDOH Alcohol Binge Watson Leal Sex Assigned At [facility] Alcohol intake 2018-04-11 00:00:00 2018-04-11 00:00:00 Current non-drinker of alcohol (finding) [facility] History SDOH Alcohol Frequency 2018-03-26 00:00:00 2018-03-26 00:00:0 0 1 Watson Leal Smoking Status Start Date Stop Date Source Never smoker [facility] Medications Ordered Medication Name Filled Medication Name Start Date Stop Da te Current Medication? Ordering Clinician Indication Dosage Frequency Signature (SIG) Comments Components Source Spironolactone 25 Mg Tablet Spironolactone 25 Mg Tablet 2018-05-29 00:00:00 Yes 12.5 Daily [facility] metFORMIN (GLUCOPHAGE) 500 mg tablet 2018-04-15 18:39:53 [...] mg by mouth daily. Watson Leal omega 6-efl-ezm-fish oil (FISH OIL) 100-160-1,000 mg capsule 2018-04-15 [...] s Take 50 mg twice per day. [facility] dilTIAZem (CARDIZEM CD) 180 MG 24 hr capsule 2017-12-13 07:38:34 Yes 180mg Take 180 mg by mouth as needed Takes as needed for BP . [facility] folic acid (FOLVITE) 1 MG tablet 2017-12-13 07:36:15 Yes 1mg QD Take 1 mg by mouth daily. [facility] clonazePAM (KLONOPIN) 0.5 MG tablet 2017-12-13 07:36:15 Yes .5mg Take 0.5 mg by mouth 2 (two) times daily as needed for Anxiety. [facility] silodosin 8 mg Cap 2017-12-13 07:28:14 Yes T payton by mouth. [facility] clopidogrel (PLAVIX) 75 mg tablet 2017-12-13 07:28:14 Yes 75mg QD Take 75 mg by mouth daily. [facility] dronedarone (MULTAQ) 400 mg tablet 2016-08-24 06:20:59 Yes 400mg Take 400 mg by mouth 2 (two) times daily with breakfast and dinner. [facility] loratadine (CLARITIN) 10 mg tablet 2016-08-24 06:20:59 Yes 10mg QD Take 10 mg by mouth daily. [facility] finasteride (PROSCAR) 5 mg tablet 2016-02-15 12:11:04 Yes 5mg QD Take 5 mg by mouth daily. [facility] rivaroxaban (XARELTO) 20 mg Tab tablet 2016-02-15 12:11:04 Yes QD Take by mouth daily. [facility] cetirizine (ZYRTEC) 10 MG tablet 2016-02-15 12:11:04 Yes 10mg QD Take 10 mg by mouth daily. [facility] MAGNESIUM CHLORIDE (SLOW-MAG ORAL) 2016-02-15 12:11:04 Yes Take by mouth. [facility] CHOLECALCIFEROL, VITAMIN D3, ORAL 2016-02-15 12:11:04 Yes Take by mouth. [facility] coenzyme Q10 100 mg capsule 2016-02-15 12:11:04 Yes 100mg QD Take 100 mg by mouth daily. [facility] metFORMIN (GLUCOPHAGE) 500 MG tablet 2016-02-15 00:00:00 Ye s 500mg Take 1 tablet (500 mg total) by mouth 2 (two) times daily with breakfast and dinner. [facility] Clonazepam 0.5 Mg Tab.rapdis Clonazepam 0.5 Mg Tab.rapdis Y es .5 Bedtime as needed for Anxiety [facility] Clopidogrel Bisulfate (Plavix) 75 Mg Tablet Clopidogre l Bisulfate (Plavix) 75 Mg Tablet Yes 75 Daily [facility] Digoxin 125 Mcg Tablet Digoxin 125 Mcg Tablet Yes .125 Daily [facility] Eliquis 2.5 Eliquis 2.5 Yes 2.5 Twice A Day [facility] Finasteride 5 Mg Tablet Finasteride 5 Mg Tablet Yes 5 Daily [facility] Fish Oil/Dha/Epa (Fish Oil 1,200 Mg Fish Oil) 1 Each C apsule Fish Oil/Dha/Epa (Fish Oil 1,200 Mg Fish Oil) 1 Each Capsule Yes 1 Daily [facility] Folic Folic Yes [facility] Furosemide (Lasix) 20 Mg Tablet Furosemide (Lasix) 20 Mg Tablet Yes 20 Daily [facility] Gabapentin 100 Mg Capsule Gabapentin 100 Mg Capsule Yes 100 Daily [facility] Magnesium Oxide 400 Mg Tablet Magnesium Oxide 400 Mg Tablet Yes 400 Daily [facility] Metoprolol Succinate 25 Mg Tab.er.24h Metoprolol Succinate 25 Mg Ta b.er.24h Yes 12.5 Twice A Day [facility] Midodrine Hcl 2.5 Mg Tablet Midodrine Hcl 2.5 Mg Tablet Yes 2.5 Twice A Day [facility] [place]-3 Fatty Acids/Fish Oil (Fish Oil 1,000 Mg Softge l) 1 Each Capsule [place]-3 Fatty Acids/Fish Oil (Fish Oil 1,000 Mg Softgel) 1 Each Capsule Yes 1 Daily [facility] Ubidecarenone (Co Q-10) 100 Mg Capsule Ubidecarenone (Co Q-10) 1 00 Mg Capsule Yes 100 Daily [facility] Vitamin D3 Vitamin D3 Yes [facility] Finasteride 5 Mg Tablet, 5 Mg Oral Finasteride 5 Mg Tablet, 5 Mg Oral 2018-05-29 00:00:00 No 5 Bedtime [facility] Rapaflo , Rapaflo , 2018-05-29 00:00:00 No [facility] Clonidine Hcl 0.1 Mg Tablet, 0.1 Mg Oral Clonidine Hcl 0.1 Mg Tablet, 0.1 Mg Oral 2018-05-24 00:00:00 No .1 As N eeded as needed for High Blood Pressure [facility] Diltiazem Hcl (Diltiazem 24HR Er) 180 Mg Capcr, 180 Mg Oral Diltiazem Hcl (Diltiazem 24HR Er) 180 Mg Capcr, 180 Mg Oral 2018-05-24 00:00:00 No 180 Daily as needed for High Blood Pressure [facility] Lisinopril 10 Mg Tablet, 40 Mg Oral Lisinopril 10 Mg Tablet, 40 Mg Oral 2018-05-24 00:00:00 No 40 Daily as needed for High Blood Pressure [facility] Metformin Hcl 500 Mg Tablet, 500 Mg Oral Metformin Hcl 500 Mg Tablet, 500 Mg Oral 2018-05-24 00:00:00 No 500 Twice A Day [facility] Metoprolol Succinate 50 Mg Tab.er.24h, 150 Mg Oral Met oprolol Succinate 50 Mg Tab.er.24h, 150 Mg Oral 2018-05-24 00:00:00 No 150 Daily [facility] Rivaroxaban (Xarelto) 20 Mg Tablet, 15 Mg Oral Rivarox aban (Xarelto) 20 Mg Tablet, 15 Mg Oral 2018-05-24 00:00:00 No 15 Daily [facility] Citalopram Hydrobromide (Citalopram Hbr) 20 Mg Tablet, 20 Mg Oral Citalopram Hydrobromide (Citalopram Hbr) 20 Mg Tablet, 20 Mg Oral 2018-01-07 00:00:00 No 20 Daily [facility] Dronedarone Hydrochloride (Multaq) 400 Mg Tablet, 400 Mg Oral Dronedarone Hydrochloride (Multaq) 400 Mg Tablet, 400 Mg Oral 2018-01-27 00:00:00 No 400 Twice A Day [facility] Isosorbide Mononitrate 20 Mg Tablet, 20 Mg Oral Isosor bide Mononitrate 20 Mg Tablet, 20 Mg Oral 2018-01-27 00:00:00 No 20 As Needed as needed for High Blood Pressure [facility] Alfuzosin Hcl 10 Mg Tab.er.24h, 10 Mg Oral Alfuzosin H cl 10 Mg Tab.er.24h, 10 Mg Oral 2017-08-28 00:00:00 No 10 Daily [facility] Aspirin (Aspir 81) 81 Mg Tablet., 81 Mg Oral Aspirin (Aspir 81) 81 Mg Tablet., 81 Mg Oral 2017-08-28 00:00:00 No 81 Da lisa [facility] Cetirizine Hcl (Zyrtec) 10 Mg Tablet, 10 Mg Oral Cetir izine Hcl (Zyrtec) 10 Mg Tablet, 10 Mg Oral 2017-08-28 00:00:00 No 10 Daily [facility] Metoprolol Tartrate 25 Mg Tablet, 12.5 Mg Oral Metopro lol Tartrate 25 Mg Tablet, 12.5 Mg Oral 2017-08-28 00:00:00 No 12.5 Twice A Day [facility] Rivaroxaban (Xarelto) 20 Mg Tablet, 20 Mg Oral Rivarox aban (Xarelto) 20 Mg Tablet, 20 Mg Oral 2017-08-28 00:00:00 No 20 .q Ot her Day [facility] Aspirin (Aspir 81) 81 Mg Tablet., 81 Mg Oral Aspirin (Aspir 81) 81 Mg Tablet., 81 Mg Oral 2016-06-22 00:00:00 No 81 Us e As Directed [facility] Digoxin 125 Mcg Tablet, 0.125 Mg Oral Digoxin 125 Mcg Tablet, 0. 125 Mg Oral 2016-06-22 00:00:00 No .125 Daily [facility] Lisinopril 10 Mg Tablet, 10 Mg Oral Lisinopril 10 Mg Tablet, 10 Mg Oral 2016-06-22 00:00:00 No 10 As Needed [facility] Flecainide Acetate 50 Mg Tablet, 125 Mg Oral Flecainid e Acetate 50 Mg Tablet, 125 Mg Oral 2016-05-30 00:00:00 No 125 Daily [facility] Ubidecarenone (Co Q-10) 10 Mg Capsule, Ubidecarenone (Co Q-10) 1 0 Mg Capsule, 2016-05-30 00:00:00 No [facility] Digoxin 125 Mcg Tablet, 0.125 Mg Oral Digoxin 125 Mcg Tablet, 0. 125 Mg Oral 2016-03-04 00:00:00 No .125 Daily [facility] Rivaroxaban (Xarelto) 20 Mg Tablet, 20 Mg Oral Rivarox aban (Xarelto) 20 Mg Tablet, 20 Mg Oral 2016-02-03 00:00:00 No 20 Daily [facility] Lisinopril 10 Mg Tablet, 10 Mg Oral Lisinopril 10 Mg Tablet, 10 Mg Oral 2016-02-02 00:00:00 No 10 Daily [facility] Procedures Procedure Date / Time Performed Performing Clinician [facility] e US Abdomen limited 2018-07-18 00:00:00 MARICHUY TORRES [facility] Ultrasound of chest including mediastinum 2018-07-18 00:00:0 [facility] Complete non-obstetrical ultrasound of pelvis 2018-07-18 00: 00:00 [facility] X-ray of chest, two views 2018-07-17 00:00:00 VANDANA LIAO [facility] Computed tomography of abdomen and pelvis with contrast 2018 00:00[facility] CONTROL BLEEDING IN NOSE SFT TISS, VIA OPENING 2018[facility]05-25 00 :00:00 [facility] TRANSFUSE NONAUT RED BLOOD CELLS IN PERIPH VEIN, PERC 2018-05-25 00:00:00 AIDEN CABELLO [facility] INSERT TEMP BLADDER CATH 2018-03-21 00:00:00 RAADJEN VALENCIA S [facility] RPR S/N/AX/GEN/TRNK 2.5CM/< 2018-02-27 00:00:00 PALMER NOYOLA [facility] Computed tomography of brain without radiopaque contrast 201 12-14-28 00:00:00 [facility] A[facility] S [facility] RESECTION OF GALLBLADDER, PERCUTANEOUS ENDOSCOPIC APPROACH 2 00:00:00 ANATOLIY THOMPSON [facility] RELEASE PERITONEUM, PERCUTANEOUS ENDOSCOPIC APPROACH 2018-01 00:00:00 ANATOLIY THOMPSON [facility] INSPECTION OF UPPER INTESTINAL TRACT, ENDO 2018-01-30 00:00: 00 ANATOLIY THOMPSON [facility] Computed tomography of abdomen and pelvis with contrast 2017 00:00:00 MITCHEL TAPIA [facility] US Gallbladder 2018-01-27 00:00:00 MITCHEL TAPIA [facility] X-ray of chest, two views 2017-12-17 00:00:00 MAINE RAMIRES [facility] L HRT ARTERY/VENTRICLE ANGIO 2017-12-04 00:00:00 RAJINDER GAMA [facility] Plan of Care Planned Activity Planned Date Details Comments Source Future Scheduled Test 2020-02-06 00:00:00 INFLUENZA VACCINE [code = INFLUENZA VACCINE] [facility] Future Scheduled Test 2007 00:00:00 65+ PNEUMOCOCCAL V ACCINE (2 of 2 - PPSV23) [code = 65+ PNEUMOCOCCAL VACCINE (2 of 2 - PPSV23)] [facility] Future Scheduled Test 1992 00:00:00 SHINGLES VACCINES (#1) [code = SHINGLES VACCINES (#1)] [facility] Future Scheduled Test 1952 00:00:00 DIABETIC FOOT EXAM [code = DIABETIC FOOT EXAM] [facility] Future Scheduled Test 1952 00:00:00 URINE MICROALBUMIN [code = URINE MICROALBUMIN] [facility] Future Scheduled Test 1942 00:00:00 DIABETIC RETINAL E YE EXAM [code = DIABETIC RETINAL EYE EXAM] [facility] Encounters Start Date/Time End Date/Time Encounter Type Admission Type Att[facility] Care Department Encounter ID Source 2018-07-17 16:49:00 2018-07-19 19:31:00 Discharged Inpatient (obs) 1 PATRUBI [facility] [id number] [facility] 2018-07-13 14:33:00 2018-07-13 14:33:00 Registered Clinic 3 YENI STEPHENS [facility] [id number] [facility] 2018-05-29 03:09:00 2018-05-29 18:55:00 Discharged Inpatient 1 SKYE VOSS [facility] [id number] [facility] 2018-05-24 16:59:00 2018-05-25 11:34:00 Discharged Inpatient 1 AIDEN CABELLO [facility] [id number] [facility] 2018-04-14 01:51:00 2018-04-14 03:39:00 Departed Emergency Room [facility] [id number] [facility] 2018-03-21 00:35:00 2018-03-21 02:13:00 Departed Emergency Room [facility] [id number] [facility] 2018-03-14 11:13:00 2018 08:28:00 Discharged Inpatient (obs) 1 AIDEN CABELLO [facility] [id number] [facility] 2018-02-27 08:40:00 2018-02-27 10:15:00 Departed Emergency Room [facility] [id number] [facility] 2018-01-30 01:09:00 2018-02-05 15:50:00 Discharged Inpatient 1 AIDEN CABELLO [facility] [id number] [facility] 2018-01-27 17:52:00 2018-01-27 23:51:00 Departed Emergency Room 1 GREGORY LIANG [facility] [id number] [facility] 2018-01-23 12:45:00 2018-01-23 12:45:00 Registered Clinic [facility] [id number] [facility] 2017-12-17 07:24:00 2017-12-17 11:53:00 Departed Emergency Room 1 MANIE RAMIRES [facility] [id number] [facility] 2017-12-04 10:01:00 2017-12-04 10:01:00 Registered Surgical Day Care [facility] [id number] [facility] 2017-11-22 10:13:00 2017-11-22 10:13:00 Registered Clinic 3 RAJINDER GAMA [facility] [id number] [facility] 2017-08-27 23:29:00 2017-08-28 04:30:00 Departed Emergency Room ER GREGORY LIANG [facility] [id number] [facility] 2017-03-22 08:59:00 2017-03-22 15:03:00 Departed Emergency Room [facility] [id number] [facility] 2017-03-22 02:53:00 2017-03-22 04:19:00 Departed Emergency Room [facility] [id number] [facility] Results Test Description Test Time Test Comments Results Result Comments Source CT ABDOMEN/PELVIS W 2020-01-12 13:27:00 [facility] [place] [address] Patient Name: ELVIS MEDELLIN MR #: [id number] : 1940 Age/Sex: 79/M Re #: [id number] [facility] Physician: Ordered by: GREGORY LIANG MD Report #: [id number] Location: ER Room/Bed: Procedure: [id number] CT/CT ABDOMEN/PELVIS W Exam Date: 01/12/20 Exam Time: 1249 REPORT STATUS: Signed EXAM: CT Abdomen and Pelvis WITH contrast INDICATION: ABD PAIN, DIFFUSE COMPARISON: CT abdomen and pelvis dated 11/14/2019. TECHNIQUE: Abdomen and pelvis were scanned utilizing a multidetector helical scanner from the lung base to the pubic symphysis after administration of IV contrast. Coronal and sagittal reformations were obtained. Dose modulation, iterative reconstruction, and/or weight based adjustment of the mA/kV was utilized to reduce the radiation dose to as low as reasonably achievable. Routine protocol was performed. Scan was performed when during portal venous phase. IV CONTRAST: 150 mL of Omnipaque 300 ORAL CONTRAST: Water COMPLICATIONS: None RADIATION DOSE: Total DLP: 832.71 mGy-cm Estimated effective dose: (DLP x 0.015 x size factor) mSv CTDIvol has been reviewed. It is below the limits set by the Radiation Protocol Committee (RPC). FINDINGS: LINES and TUBES: Dual-chamber pacemaker wires in the cardiac chambers on the right side. LOWER THORAX: Unchanged small right pleural effusion with associated atelectasis. 4 mm calcified granuloma in the left lower lobe (series 2, image 4), unchanged. HEPATOBILIARY: The liver is diffuse hypodense compared to the spleen, consistent with diffuse hepatic diffuse hepatic steatosis. The liver contour is slightly lobulated. No focal hepatic lesions. No biliary ductal dilation. GALLBLADDER: There are cholecystectomy clips. SPLEEN: No splenomegaly. No focal splenic lesion. PANCREAS: No focal masses or ductal dilatation. ADRENALS: No adrenal nodules KIDNEYS/URETERS: Kidneys enhance symmetrically. No hydronephrosis. Small right exophytic renal cyst measuring approximately 1.5 x 1.1 cm, unchanged. No stones. GI TRACT: In addition to below mentioned finding, no abnormal distention, wall thickening, or evidence of bowel obstruction. PELVIC ORGANS/BLADDER: The bladder is unremarkable. There is prostamegaly. LYMPH NODES: No lymphadenopathy. VESSELS: No aortic aneurysm or dissection. PERITONEUM / RETROPERITONEUM: No free air or fluid. BONES: Unremarkable. SOFT TISSUES: Large left inguinal hernia containing loop of small bowel. There is mild wall thickening of the loop of bowel seen in the hernia sac, indeterminate. No pneumatosis. No evidence of obstruction. Small fat and f luid containing right inguinal hernia IMPRESSION: 1. Large left inguinal hernia containing loop of small bowel. There is mild wall thickening of the loop of bowel seen in the hernia sac , indeterminate. Ischemia could not be excluded. This finding is new from prior exam. No pneumatosis. No evidence of obstruction. 2. Unchanged small fat and fluid containing right inguinal hernia. 3. Unchanged small right pleural effusion with associated atelectasis. Findings were discussed with Dr. Liang at 1:40 PM on 01/12/2020 Signed by: Jayy Connelly MD on 01/12/2020 1:43 PM Dictated By: JAYY CONNELLY MD 1343 Transcribed By: MUNDO on 01/12/20 1343 COPY TO: GREGORY LIANG MD CHEST SINGLE (PORTABLE) 2020-01-12 12:38:00 [place] [address] Patient Name: ELVIS MEDELLIN MR #: [id number] : 1940 Age/Sex: 79/M Req #: [id number] Adm Physician: Ordered by: GREGORY LIANG MD Report #: [id number] Location: ER Room/Bed: Procedure: [id number] DX/CHEST SINGLE (PORTABLE) Exam Date: 01/12/20 Exam Time: 1146 REPORT STATUS: Signed EXAMINATION: CHEST SINGLE (PORTABLE) INDICATION: abd pain COMPARISON: None FINDINGS: AP view TUBES and LINES: The pacemaker is intact. . LUNGS/PLEURA: Lungs are well inflated. There is no evidence of pne umonia or pulmonary edema.. There is no pleural effusion or pneumothorax. HEART AND MEDIASTINUM: Cardiac size is mildly enlarged. BONES AND SOFT TISSUES: No acute osseous lesion. Soft tissues are unremarkable. UPPER ABDOMEN: No free air under the diaphragm. IMPRESSION: No acute thoracic abnormality. Mild cardiomegaly. Signed by: Jayy Connelly MD on 01/12/2020 12:41 PM Dictated By: JAYY CONNELLY MD 1241 Transcribed By: MUNDO on 01/12/20 1241 COPY TO: GREGORY LIANG MD, IV, HYDRAT 31MIN-1HR 2019-11-14 16:02:00 [place] [address] Patient Name: ELVIS MEDELLIN MR #: [id number] : 1940 Age/Sex: 79/M Req #: [id number] Adm Physician: Ordered by: EUGENE CORMIER MD Report #: [id number] Location: [place] Room/Bed: Procedure: CT/IV NATHANIEL DE LA ROSA 31MIN-1HR Exam Date: 11/14/19 Exam Time: 915 REPORT STATUS: Signed IV fluid given for hydration to this patient because of her GFR of 57 following an intravenous contrast enhanced CT scan. Signed by: Eugene Cormier MD on 11/14/2019 4:03 PM Dictated By: EUGENE CORMIER MD 02 Transcribed By: MUNDO on 11/14/191602 COPY TO: EUGENE CORMIER MD CT ABDOMEN/PELVIS W 2019-11-14 09:33:00 [place] [address] Patient Name: ELVIS MEDELLIN MR #: [id number] : 1940 Age/Sex: 79/M Req #: [id number] Adm Physician: Ordered by: IVAN COLE MD Report #: [id number] Location: CT Room/Bed: Procedure: CT/CT ABDOMEN/PELVIS W Exam Date: 11/14/19 Exam [...] evaluation of the lungs. Signed by: Eugene Cormier MD on 11/14/2019 9:55 AM Dictated By: EUGENE CORMIER MD 4 Transcribed By: MUNDO on 11/14/19954 [...] code = CA) 9.4 mg/dL 8.5-10.1 N [id number] 11:53:00* Test Item Value Reference Range Interpretation Comments GLYCOSYLATED HEMOGLOBIN (HA1C) (test code = GLYHGB) 6.1 % HbA1 SUGGESTED DIAGNOSIS: HbA1C (%) Diabetic >6.4Prediabetes 5.7 - 6.4Normal <5.7 ESTIMATED AVERAGE GLUCOSE (test code = EAG) 128 MG/DL BASIC METABOLIC [id number] 11:37:00* Test Item Value Reference Range Interpretation [...] CA) mg/dL 8.5-10.1 - XR CHEST 2 [id number] 10:29:00 FAX: Kenyetta Garcia MD [phone] [place]: O St: REG FAX: Aiden Soni MD [phone] Name: ELVIS MEDELLIN [facility] : 1940 Age/S: 79/M [address] [facility] Unit #: [id number] Loc: [place] [address] Phys: Kenyetta Gimenez MD Acct: [id number] Dis Date: Status: REG CLI PHONE #: [phone] Exam Date: 03/20/2019 1021 FAX #: [phone] Reason: PLEURAL EFFUSION EXAMS: CPT CODE: [id number] XR CHEST 2 V 85679 HISTORY: Pleural effusion. COMPARISON: November 06, 2018. [...] CC: Kenyetta Gimenez MD; Aiden Cabello Technologist: Nichelle Grace RT(R) Trnscrd Date/Time/By: 03/20/2019 (1029) : By: [email or web address] Orig Print D/T: S: 03/20/2019 (1032) PAGE 1 Signed Report [id number] 09:41:00* Test Item Value Reference Range Interpretation Comments GLYCOSYLATED HEMOGLOBIN (HA1C) (test code = GLYHGB) 6.8 % HbA1 4. 8-6.0 H ESTIMATED AVERAGE GLUCOSE (test code = EAG) 148 MG/DL BASIC METABOLIC [id number] 09:36:00* Test Item Value Reference Range Interpretation [...] CA) 9.1 mg/dL 8.5-10.1 N BASIC METABOLIC [id number] 09:29:00* Test Item Value Reference Range Interpretation [...] CALCIUM (test code = CA) mg/dL 8.5-10.1 MVSTQCX9790-56-92 14:05:00* Test Item Value Reference Range Interpretation Comments DIGOXIN (test code = DIG) 0.8 ng/mL 0.90-2.0 L NO TE: Spironolactone interference may cause a decrease inreported Digoxin results of 11-30 %. PROTHROMBIN [id number] 11:42:00* Test Item Value Reference Range Interpretation [...] Mechanical prosthetic heart valves (2.5-3.5) CHEST 2 [id number] 14:09:00 [place] [address] Patient Name: ELVIS MEDELLIN MR #: [id number] : 1940 Age/Sex: 78/M Req #: [id number] Adm Physician: Ordered by: RAJINDER GAMA MD Report #: [id number] Location: [facility] Room/Bed: Procedure: [id number] DX/ CHEST 2 VIEWS Exam Date: 02/04/19 [...] MUNDO on 02/04/19 1412 COPY TO: RAJINDER GAMA MD PLEURAL [id number] 17:05:00 RUN DATE: 11/07/18 [place] - Lab PAGE 1 RUN TIME: 1705 Specimen Inqui ry RUN USER: INTERFACE PATIENT: ELVIS MEDELLIN ACCT #: [id number] LOC: [place] U #: [id number] AGE/SX: 78/M ROOM: RE11/06/18REG DR: Kali Herrmann MD : 42 BED: DIS: STATUS[place] [facility] [place]: SPEC #: [id number] RECD: 11/06/18 STATUS: [facility] #: [id number] [place]: 11/06/18- DR: Kali Herrmann MD ENTERED: 11/06/18 SP TYPE: PLEURAL FL OTHR DR: Daniel Cabello MD ORDERED: GROSS COPIES TO: Aiden Cabello MD [address] [place], [place] [id number] Kali Herrmann MD [address] [place], [place] [id number] PROCEDURES: GROSS (11/07/18-1 339) TISSUES: PLEURAL FLUID, NOS - 30ML PINK FLUID CLINICAL HI STORY COLLECTION DATE: 11/06/18 HISTORY CHF, PLEURAL EFFUSION COMMENT Two concentrated smears, a cytospin and cell block are prepared from the fluid. FINAL DIAGNOSIS Right pleural fluid, cytology: NEG ATIVE FOR MALIGNANCY LYMPHOCYTES, FEW NEUTROPHILS, MESOTHELIAL CELLS AND MACROPHAGES IN BACKGROUND OF RED BLOOD CELLS RRB/sm D 883 05, 45724 CONTINUED ON NEXT PAGE ------- -----RUN DATE: 11/07/18 [facility] PAGE 2 RUN TIME: 1705 Specimen Inquiry RUN USER: INTERFACE SPEC #: [id number] PATIENT: ELVIS MEDELLIN S #[id number] (Continued) MACROSCOPIC The specimen consists of 30 mL of pink fluid to be concentrated and processed for cytologic evaluation. A cell block is prepared. GROSS PERFORMED AT [facility] [address] [place] [address] [phone] of the [address] ains, including any controls performed, stain appropriately. MICROSCOPIC P ERFORMED AT [facility] [address] [place] [address] ([phone] PERFORMING SITE Diagn osis performed at: [facility] [address] [place] [address] Signed SIGNATURE ON FILE Jeremias Hurley MD 11/07/18 1705 END OF REPORT - SP THORACENTESIS [id number] 13:17:00 Name: ELVIS MEDELLIN [facility] SP : 1940 Age/S: 78 / M [address] [facility] Unit #: [id number] Loc: [place] [address] Phys: Steven Herrmann MD Acct: [id number] Di s Date: Status: [facility] PHONE #: Exam Date: 11/06/2018 [facility] FAX #: Reason: EXAMS: CPT CODE: [id number] SP THORACENTESIS W/IMAG 96262 Fluoro Time: DAP (Gy m2): Air Kerma [...] administered and using sonographic guidance an 8 Occitan pigtail catheter was inserted into the right pleural cavity. 960 mL of clear yel lowish pleural fluid were drained and samples were sent to the lab. The dr galaviz catheter was then removed. No complications. IMPRES CHARLETTE: Successful ultrasound-guided right thoracentesis. at 1317 Reported and signed by: Kali Herrmann M.D. CC: Aiden Cabello Gerhard R MD Technologist: Luisito Wild RT(R) Trnscb Date/Time: 11/07/2018 (0464) tMARAH Orig Print D/T: S: 11/07/2018 (7831) PAGE 1 Signed Re port BODY FLUID CELL CT/[id number] 13:12:00* Test Item Value Reference Range Interpretation [...] code = REVIEW) LORENZA GARCIA PATHOLOGIST FLUID [id number] 13:12:00* Test Item Value Reference Range Interpretation Comments FLUID PH (test code = PHFL) 7.5 6.8-7.6 N FLUID [id number] 13:12:00* Test Item Value Reference Range Interpretation Comments FLUID GLUCOSE (test code = GLUFL) 113 mg/dL FLUID [id number] 13:12:00* Test Item Value Reference Range Interpretation Comments FLUID PROTEIN (test code = PROTFL) 2.5 gram/dL FLUID [id number] 13:12:00* Test Item Value Reference Range Interpretation Comments FLUID LDH (test code = LDHFL) 78 IUnit/L BODY FLUID CELL CT/[id number] 02:41:00* Test Item Value Reference Range Interpretation [...] BY (test code = REVIEW) PATHOLOGIST FLUID [id number] 02:41:00* Test Item Value Reference Range Interpretation Comments FLUID PH (test code = PHFL) 7.5 6.8-7.6 N FLUID [id number] 02:41:00* Test Item Value Reference Range Interpretation Comments FLUID GLUCOSE (test code = GLUFL) 113 mg/dL FLUID [id number] 02:41:00* Test Item Value Reference Range Interpretation Comments FLUID PROTEIN (test code = PROTFL) 2.5 gram/dL FLUID [id number] 02:41:00* Test Item Value Reference Range Interpretation Comments FLUID LDH (test code = LDHFL) 78 IUnit/L BODY FLUID CELL CT/[id number] 13:50:00* Test Item Value Reference Range Interpretation [...] BY (test code = REVIEW) PATHOLOGIST FLUID [id number] 13:50:00* Test Item Value Reference Range Interpretation Comments FLUID PH (test code = PHFL) 7.5 6.8-7.6 N FLUID [id number] 13:50:00* Test Item Value Reference Range Interpretation Comments FLUID GLUCOSE (test code = GLUFL) 113 mg/dL FLUID [id number] 13:50:00* Test Item Value Reference Range Interpretation Comments FLUID PROTEIN (test code = PROTFL) 2.5 gram/dL FLUID [id number] 13:50:00* Test Item Value Reference Range Interpretation Comments FLUID LDH (test code = LDHFL) 78 IUnit/L BODY FLUID CELL CT/[id number] 13:42:00* Test Item Value Reference Range Interpretation [...] BY (test code = REVIEW) PATHOLOGIST FLUID [id number] 13:42:00* Test Item Value Reference Range Interpretation Comments FLUID PH (test code = PHFL) 6.8-7.6 FLUID [id number] 13:42:00* Test Item Value Reference Range Interpretation Comments FLUID GLUCOSE (test code = GLUFL) 113 mg/dL FLUID BCRWFBP8201-06-79 13:42:00* Test Item Value Reference Range Interpretation Comments FLUID PROTEIN (test code = PROTFL) 2.5 gram/dL FLUID [id number] 13:42:00* Test Item Value Reference Range Interpretation Comments FLUID LDH (test code = LDHFL) 78 IUnit/L BODY FLUID CELL CT/KJYZ2803-88-64 13:28:00* Test Item Value Reference Range Interpretation [...] BY (test code = REVIEW) PATHOLOGIST FLUID [id number] 13:28:00* Test Item Value Reference Range Interpretation Comments FLUID PH (test code = PHFL) 6.8-7.6 FLUID [id number] 13:28:00* Test Item Value Reference Range Interpretation Comments FLUID GLUCOSE (test code = GLUFL) 113 mg/dL FLUID [id number] 13:28:00* Test Item Value Reference Range Interpretation Comments FLUID PROTEIN (test code = PROTFL) 2.5 gram/dL FLUID [id number] 13:28:00* Test Item Value Reference Range Interpretation Comments FLUID LDH (test code = LDHFL) 78 IUnit/L [id number] 12:58:00* Test Item Value Reference Range Interpretation Comments GLUBED (test code = GLUBED) 103 mg/dL 74-106 N Performed by certified radial drill press set up operator at [facility] BODY FLUID CELL CT/[id number] 11:19:00* Test Item Value Reference Range Interpretation [...] BY (test code = REVIEW) PATHOLOGIST FLUID [id number] 11:19:00* Test Item Value Reference Range Interpretation Comments FLUID PH (test code = PHFL) 6.8-7.6 FLUID [id number] 11:19:00* Test Item Value Reference Range Interpretation Comments FLUID GLUCOSE (test code = GLUFL) 113 mg/dL FLUID [id number] 11:19:00* Test Item Value Reference Range Interpretation Comments FLUID PROTEIN (test code = PROTFL) 2.5 gram/dL FLUID [id number] 11:19:00* Test Item Value Reference Range Interpretation Comments FLUID LDH (test code = LDHFL) 78 IUnit/L BODY FLUID CELL CT/RFBE0185-42-09 10:51:00* Test Item Value Reference Range Interpretation [...] BY (test code = REVIEW) PATHOLOGIST FLUID [id number] 10:51:00* Test Item Value Reference Range Interpretation Comments FLUID PH (test code = PHFL) 6.8-7.6 FLUID [id number] 10:51:00* Test Item Value Reference Range Interpretation Comments FLUID GLUCOSE (test code = GLUFL) mg/dL FLUID [id number] 10:51:00* Test Item Value Reference Range Interpretation Comments FLUID PROTEIN (test code = PROTFL) gram/dL FLUID [id number] 10:51:00* Test Item Value Reference Range Interpretation Comments FLUID LDH (test code = LDHFL) IUnit/L - XR CHEST 1 [id number] 10:36:00 FAX: Aiden Soni MD [phone] [place]: St: REG FAX: Kali Davalos [phone] Name: ELVIS MEDELLIN [facility] : 1940 Age/S: 78/M Aman Mendez Unit #: [id number] Loc: [place] [address] Phys: Kali Herrmann MD Acct: [id number] Dis Date: Status: REG [facility] PHONE #: [phone] Exam Date: 11/06/2018 1021 FAX #: [phone] Reason: CHF, SOB; R pleural effusion; st.p. thoracentes EXAMS: CPT CODE: [id number] XR CHEST 1 V 00568 HISTORY: CHF and shortness of breath and [...] Aiden Cabello; Kali Herrmann MD Technologist: Taryn Ji(R) Trnscrd Date/Time/By: 11/06/2018 (1036) : By: [email or web address] Orig Print D/T: S: 11/06/2018 (8181) PAGE 1 Signed Report PROTHROMBIN [id number] 17:53:00* Test Item Value Reference Range Interpretation [...] prosthetic heart valves (2.5-3.5) 11/01/18 1447THROMBOPLASTIN TIME [id number] 17:53:00* Test Item Value Reference Range Interpretation Comments THROMBOPLASTIN TIME PARTIAL (test code = PTT) 41.0 seconds 25.0-36. 5 H 11/01/18 144COMPREHENSIVE METABOLIC BDNEB0173-79-00 17:16:00* Test Item Value Reference Range Interpretation [...] to change in reagent. 11/01/18 1447COMPREHENSIVE METABOLIC [id number] 16:43:00* Test Item Value Reference Range Interpretation [...] = ALKP) IUnit/L 45-117 11/01/18 1447CBC W/AUTO [id number] 16:20:00* Test Item Value Reference Range Interpretation [...] = MDIFF) NO 11/01/18 1447- US CHST W/TYLHPGJMPKJ2205-03-79 15:15:00 Name: ELVIS MEDELLIN [facility] : 1940 Age/S: 78 / M [address] [facility] Unit #: [id number] Loc: [place] [address] Phys: Kali Herrmann MD Acct: [id number] Dis Date: Status: PRE SDC PHONE #: [phone] Exam Date: 11/01/2018 5072 FAX #: [phone] Reason: PRE OP EXAMS: CPT CODE: [id number] US CHST W/MEDIASTINUM 70782 REASON FOR EXAM: PRE OP EXAM ORDER DATE: 11/01/2018 2:44 PM Attending MJeane: Kali Herrmann MD PROCEDURE: - US CHST W/MEDIASTINUM FINDINGS: Limited focal ultrasound performed for assessment of pleural effusions IMPRESSION: Large right pleural effusion. No effusion on the left at 1515 Reported and signed by: Dillon Mace M.D. CC: Aiden Cabello; Kali Herrmann MD Technologist: SKYLA DOOLEY RT(R),SHRUTHI Trnscb Da te/Time: 11/01/2018 (1515) t.[email or web address].VTL Orig Print D/T: S: 0 11/01/2018 (8998) Probe: PAGE 1 Signed Report CBC W/AUTO [id number] 16:47:00* Test Item Value Reference Range Interpretation [...] = MDIFF) NO, ONLY SCAN NEEDED DIFFERENTIAL [id number] 16:47:00* Test Item Value Reference Range Interpretation Comments STAIN ACCEPTABILITY (test code = STN ACCEPTABLE) STAIN ACCEPTABLE PLATELET ESTIMATE (test code = PLTEST) ADEQUATE PLATELET MORPHOLOGY (test code = PLTMORPH) NORMAL COMPREHENSIVE METABOLIC [id number] 13:27:00* Test Item Value Reference Range Interpretation [...] reference range due to change in reagent. [id number] 13:27:00* Test Item Value Reference Range Interpretation Comments DIGOXIN (test code = DIG) 0.4 ng/mL 0.90-2.0 L NO TE: Spironolactone interference may cause a decrease inreported Digoxin results of 11-30 %. B-TYPE NATRIURETIC [id number] 13:27:00* Test Item Value Reference Range Interpretation Comments B-TYPE NATRIURETIC PEPTIDE (test code = BNP) 1325.58 pgram/mL 0-100 H COMPREHENSIVE METABOLIC [id number] 13:06:00* Test Item Value Reference Range Interpretation [...] TOTAL (test code = ALKP) IUnit/L 45-117 [id number] 13:06:00* Test Item Value Reference Range Interpretation Comments DIGOXIN (test code = DIG) ng/mL 0.90-2.0 CBC W/AUTO [id number] 12:56:00* Test Item Value Reference Range Interpretation [...] = MDIFF) NO, ONLY SCAN NEEDED DIFFERENTIAL [id number] 12:56:00* Test Item Value Reference Range Interpretation Comments STAIN ACCEPTABILITY (test code = STN ACCEPTABLE) MORPHOLOGY COMMENT (test code = MOC) PLATELET ESTIMATE (test code = PLTEST) PLATELET MORPHOLOGY (test code = PLTMORPH) CBC W/AUTO [id number] 12:55:00* Test Item Value Reference Range Interpretation [...] = MDIFF) NO, ONLY SCAN NEEDED DIFFERENTIAL [id number] 12:55:00* Test Item Value Reference Range Interpretation Comments STAIN ACCEPTABILITY (test code = STN ACCEPTABLE) CABOT RINGS (test code = CAB) MORPHOLOGY COMMENT (test code = MOC) PLATELET ESTIMATE (test code = PLTEST) PLATELET MORPHOLOGY (test code = PLTMORPH) CBC W/AUTO [id number] 12:55:00* Test Item Value Reference Range Interpretation [...] = MDIFF) NO, ONLY SCAN NEEDED DIFFERENTIAL [id number] 12:55:00* Test Item Value Reference Range Interpretation Comments STAIN ACCEPTABILITY (test code = STN ACCEPTABLE) MORPHOLOGY COMMENT (test code = MOC) PLATELET ESTIMATE (test code = PLTEST) PLATELET MORPHOLOGY (test code = PLTMORPH) CBC W/AUTO [id number] 12:55:00* Test Item Value Reference Range Interpretation [...] = MDIFF) NO, ONLY SCAN NEEDED DIFFERENTIAL [id number] 12:55:00* Test Item Value Reference Range Interpretation Comments STAIN ACCEPTABILITY (test code = STN ACCEPTABLE) CABOT RINGS (test code = CAB) MORPHOLOGY COMMENT (test code = MOC) PLATELET ESTIMATE (test code = PLTEST) PLATELET MORPHOLOGY (test code = PLTMORPH) US GUIDED [id number] 12:19:00 [place] [address] Patient Name: ELVIS MEDELLIN MR #: [id number] : 1940 Age/Sex: 78/M Req #: [id number] Adm Physician: Ordered by: YENI STEPHENS MD Report #: [id number] Location: Room/Bed: Procedure: [id number] US/US GUIDED PARACENTESIS Exam Date: 07/23/18 Exam Time: 1047 REPORT STATUS: Signed EXAM: Ultrasound-guided paracentesis DATE: 07/23/2018 10:04 AM INDICATION: CHF with ascites COMPARISON: None PROCEDURES PERFORMED: Ultrasound g uided paracentesis Ultrasound images archived in PACS. Anesthesia: Loc al, 1% lidocaine Devices: 5-Occitan centesis needle PROCEDURE REPORT: After informed consent was obtained, ultrasound was utilized to identify the largest pocket of ascitic fluid in the left mid abdomen. A safe entry route was identified and the overlying skin was prepped and draped in usual sterile fashion. Lidocaine1% was used for local anesthesia. Under ultrasound guidan ce, a 5 [employer] centesis needle was advanced into the ascites [...] YENI STEPHENS MD BONE and/or JOINT WHOLE [id number] 19:55:00 [place] [address] Patient Name: ELVIS MEDELLIN MR #: [id number] : 1940 Age/Sex: 78/M Req #: [id number] Adm Physician: RUBI STEWART MD Ordered by: YENI STEPHENS MD Report #: [id number] Location: [facility] Room/Bed: [place] [address] Procedure: [id number] NM/BONE and/or JOINT WHOLE BODY Exam Date: 07/19/18 Exam Time: 1000 REPORT STATUS: Sig harish Bone Scan, delayed phase INDICATION: 78 M diabetic with referred ab dominal pain; loss of appetite, [place] in 04/2018, CHF and ascites. COMPARISO N: [...] 07/19/182000 COPY TO: YENI STEPHENS MD Bedside Hswrvzs9503-69-24 16:29:00* Test Item Value Reference Range Interpretation Comments Bedside Glucose (test code = 62984-4) 96 70-120 Meter ID: [id number] Scott & White [facility] Center – IrvingProstate Specific Drrqfed7876-24-84 04:30:00* Test Item Value Reference Range Interpretation Comments Prostate Specific Antigen (test code = 2857-1) 1.0 0.0-4.0 Arielle ECLIA methodology.According to the [employer], Serum PSAshould decrease and remain [...] or absenceof malig nant disease.Performed at: - [facility] [id number] Director: Keith Matthew MD, Phone: [phone] Scott & White Medical Center – IrvingUS ABDOMEN PGAAUQE8720-03-18 19:06:00 [place] [address] Patient Name: ELVIS MEDELLIN MR #: [id number] : 1940 Age/Sex: 78/M Req #: [id number] Adm Physician: RUBI STEWART MD Ordered by: MARICHUY TORRES MD Report #: [id number] Location: [facility] Room/Bed: [place] [address] Procedure: [id number] U S/US ABDOMEN LIMITED Exam Date: 07/18/18 [...] MARICHUY TORRES MD US PELVIS COMPLETE NON [id number] 11:48:00 [place] [address] Patient Name: ELVIS MEDELLIN MR #: [id number] : 1940 Age/Sex: 78/M Req #: [id number] Adm Physician: RUBI STEWART MD Ordered by: YENI STEPHENS MD Report #: [id number] Location: [facility] Room/Bed: [place] [address] Procedure: [id number] US/US PELVIS COMPLETE NON OB Exam Date: [...] AM Dictat ed By: CORBY HECK MD 9691 Transcribed By: MUNDO on 07/18/18 1331 COPY TO: YENI STEPHENS MD US ABDOMEN WJTETDHN1756-72-42 11:48:00 [place] [address] Patient Name: ELVIS MEDELLIN MR #: [id number] : 1940 Age/Sex: 78/M Req #: [id number] Adm Physician: RUBI STEWART MD Ordered by: YENI STEPHENS MD Report #: [id number] Location: [facility] Room/Bed: [place] [address] Procedure: [id number] US/US ABDOMEN COMPLETE Exam Date: 07/18/18 Exam [...] 1157 Transc ribed By: MUNDO on 07/18/18 1157 COPY TO: YENI STEPHENS MD US CHEST (INCL MEDIASTINUM)2018-07-18 11:32:00 [place] [address] Patient Name: ELVIS MEDELLIN MR #: [id number] : 1940 Age/Sex: 78/M Req #: [id number] Adm Physician: RUBI STEWART MD Ordered by: YENI STEPHENS MD Report #: [id number] Location: [facility] Room/Bed: [place] [address] Procedure: [id number] US/US CHEST (INCL MEDIASTINUM) Exam Date: 07/18/18 [...] CO PY TO: YENI STEPHENS MD Sodium Rlaoj4431-43-82 06:16:00* Test Item Value Reference Range Interpretation Comments Sodium Level (test code = 2951-2) 138 136-145 [facility] IrvingPotassium Vmqao9373-66-79 06:16:00* Test Item Value Reference Range Interpretation Comments Potassium Level (test code = 2823-3) 3.8 3.5-5.1 [facility] IrvingChloride Rbidj5244-84-87 06:16:00* Test Item Value Reference Range Interpretation Comments Chloride Level (test code = 2075-0) 103 98-107 [facility] IrvingCarbon Dioxide Naubb8995-42-78 06:16:00* Test Item Value Reference Range Interpretation Comments Carbon Dioxide Level (test code = 2028-9) 25 22-29 [facility] IrvingAnion Bgs1668-73-14 06:16:00* Test Item Value Reference Range Interpretation Comments Anion Gap (test code = 64149-5) 13.8 8-16 [facility] IrvingBlood Urea Sahchlec1822-94-95 06:16:00* Test Item Value Reference Range Interpretation Comments Blood Urea Nitrogen (test code = 3094-0) 19 7-26 [facility] IrvingCreatinine2019-03-13 06:16:00* Test Item Value Reference Range Interpretation Comments Creatinine (test code = 2160-0) 0.93 0.72-1.25 [facility] IrvingBUN/Creatinine Hdbxi8828-22-47 06:16:00* Test Item Value Reference Range Interpretation Comments BUN/Creatinine Ratio (test code = 3097-3) 20 6-25 [facility] IrvingEstimat Glomerular Filtration Rate 2018-07-18 06:16:00* Test Item Value Reference Range Interpretation Comments Estimat Glomerular Filtration Rate (test code = 518757550) > 60 >60 Ranges were taken from the National Kidney Disease Education Program and the [employer] literature.Reference ranges:60 or greater: Hgbvsk04-74 ( for 3 consecutive months): Chronic kidney disease 15 or less: Kidney failureBaylor Scott & White Medical Center – IrvingGlucose Xcrco6151-70-93 06:16:00* Test Item Value Reference Range Interpretation Comments Glucose Level (test code = GVY2470) 170 74-118 H [facility] IrvingCalcium Wkwpd4949-91-93 06:16:00* Test Item Value Reference Range Interpretation Comments Calcium Level (test code = 18700-6) 7.8 8.4-10.2 L [facility] IrvingWhite Blood Xdxvq0757-19-25 06:11:00* Test Item Value Reference Range Interpretation Comments White Blood Count (test code = 6690-2) 3.50 4.8-10.8 L [facility] IrvingRed Blood Ytcet7805-47-90 06:11:00* Test Item Value Reference Range Interpretation Comments Red Blood Count (test code = 789-8) 3.97 4.3-5.7 L [facility] IrvingHemoglobin2019-03-13 06:11:00* Test Item Value Reference Range Interpretation Comments Hemoglobin (test code = 47515-9) 9.7 14.0-18.0 L [facility] IrvingHematocrit2019-03-13 06:11:00* Test Item Value Reference Range Interpretation Comments Hematocrit (test code = 4544-3) 32.9 38.2-49.6 L [facility] – IrvingMean Corpuscular Duilvr7886-15-48 06:11:00* Test Item Value Reference Range Interpretation Comments Mean Corpuscular Volume (test code = 787-2) 82.9 81-99 [facility] IrvingMean Corpuscular Qxnamxxyir5925-48-42 06:11:00* Test Item Value Reference Range Interpretation Comments Mean Corpuscular Hemoglobin (test code = 785-6) 24.4 28-32 L [facility] IrvingMean Corpuscular Hemoglobin Concent 2018-07-18 06:11:00* Test Item Value Reference Range Interpretation Comments Mean Corpuscular Hemoglobin Concent (test code = 786-4) 29.5 31-35 L [facility] IrvingRed Cell Distribution Djyam9095-67-87 06:11:00* Test Item Value Reference Range Interpretation Comments Red Cell Distribution Width (test code = 70156-5) 22.6 11.7 -14.4 H [facility] – IrvingPlatelet Qxxmw9298-72-42 06:11:00* Test Item Value Reference Range Interpretation Comments Platelet Count (test code = 777-3) 167 140-360 [facility] IrvingNeutrophils (%) (Auto)2018-07-18 06:11:00 * Test Item Value Reference Range Interpretation Comments Neutrophils (%) (Auto) (test code = 54107-5) 89.1 38.7-80.0 H [facility] IrvingLymphocytes (%) (Auto)2018-07-18 06:11:00 * Test Item Value Reference Range Interpretation Comments Lymphocytes (%) (Auto) (test code = 736-9) 7.4 18.0-39.1 L [facility] IrvingMonocytes (%) (Auto)2018-07-18 06:11:00* Test Item Value Reference Range Interpretation Comments Monocytes (%) (Auto) (test code = 5905-5) 2.6 4.4-11.3 L [facility] IrvingEosinophils (%) (Auto)2018-07-18 06:11:00 * Test Item Value Reference Range Interpretation Comments Eosinophils (%) (Auto) (test code = 713-8) 0.0 0.0-6.0 [facility] IrvingBasophils (%) (Auto)2018-07-18 06:11:00* Test Item Value Reference Range Interpretation Comments Basophils (%) (Auto) (test code = 706-2) 0.3 0.0-1.0 [facility] IrvingIM GRANULOCYTES %2018-07-18 06:11:00* Test Item Value Reference Range Interpretation Comments IM GRANULOCYTES % (test code = IM GRANULOCYTES %) 0.6 0.0- 1.0 [facility] IrvingNeutrophils # (Auto)2018-07-18 06:11:00* Test Item Value Reference Range Interpretation Comments Neutrophils # (Auto) (test code = 751-8) 3.1 2.1-6.9 [facility] IrvingLymphocytes # (Auto)2018-07-18 06:11:00* Test Item Value Reference Range Interpretation Comments Lymphocytes # (Auto) (test code = 62319-0) 0.3 1.0-3.2 L [facility] IrvingMonocytes # (Auto)2018-07-18 06:11:00* Test Item Value Reference Range Interpretation Comments Monocytes # (Auto) (test code = 742-7) 0.1 0.2-0.8 L [facility] IrvingEosinophils # (Auto)2018-07-18 06:11:00* Test Item Value Reference Range Interpretation Comments Eosinophils # (Auto) (test code = 711-2) 0.0 0.0-0.4 [facility] IrvingBasophils # (Auto)2018-07-18 06:11:00* Test Item Value Reference Range Interpretation Comments Basophils # (Auto) (test code = 704-7) 0.0 0.0-0.1 [facility] IrvingAbsolute Immature Granulocyte (auto 2018-07-18 06:11:00* Test Item Value Reference Range Interpretation Comments Absolute Immature Granulocyte (auto (jacqueline t code = Absolute Immature Granulocyte (auto) 0.02 0-0.1 [facility] IrvingPlatelet Dgngghqn2798-76-75 20:35:00* Test Item Value Reference Range Interpretation Comments Platelet Estimate (test code = 64150-4) ADEQUATE [facility] IrvingPlatelet Morphology Iqwrvny4966-32-62 20:35:00* Test Item Value Reference Range Interpretation Comments Platelet Morphology Comment (test code = 82115-9) NORMAL [facility] IrvingHypochromasia2019-03-12 20:35:00* Test Item Value Reference Range Interpretation Comments Hypochromasia (test code = 728-6) SLIGHT [facility] IrvingAnisocytosis2019-03-12 20:35:00* Test Item Value Reference Range Interpretation Comments Anisocytosis (test code = 702-1) SLIGHT [facility] IrvingRed Cell Morphology Utbovdi7875-60-00 20:35:00* Test Item Value Reference Range Interpretation Comments Red Cell Morphology Comment (test code = 6742-1) NORMAL [facility]CHE[facility] 2 [id number] 12:48:00 [facility] [address] [address] Patient Name: ELVIS MEDELLIN MR #: [id number] : 1940 Age/Sex: 78/M Req #: [id number] Adm Physician: Ordered by: VANDANA LIAO NP Report #: [id number] Location: ER Room/Bed: Procedure: 3049-2025 DX/CHEST 2 VIEWS Exam Date: 07/17/18 Exam [...] on 9 1251 COPY TO: VANDANA LIAO HABILITATION ASSISTANT B-Type Natriuretic Peptide 2018-07-17 12:23:00* Test Item Value Reference Range Interpretation Comments B-Type Natriuretic Peptide (test code = 81948-9) 2601.0 0-100 H [facility] IrvingCreatine Kinase [id number] 12:18:00* Test Item Value Reference Range Interpretation Comments Creatine Kinase MB (test code = 52955-2) 0.90 0-5.0 [facility] IrvingTroponin [id number] 12:18:00* Test Item Value Reference Range Interpretation Comments Troponin I (test code = XTX2094) 0.031 0-0.300 [facility] Uzlngavks6210-41-41 12:12:00* Test Item Value Reference Range Interpretation Comments Total Bilirubin (test code = 1975-2) 1.3 0.2-1.2 H [facility] IrvingAspartate Amino Transf (AST/SGOT) 2018-07-17 12:12:00* Test Item Value Reference Range Interpretation Comments Aspartate Amino Transf (AST/SGOT) (test code = Aspartate Amino Transf (AST/SGOT)) 16 5-34 [facility] IrvingAlanine Aminotransferase (ALT/SGPT) 2018-07-17 12:12:00* Test Item Value Reference Range Interpretation Comments Alanine Aminotransferase (ALT/SGPT) (test code = 1742-6) 9 0-[facility] Uyyassa3536-33-54 12:12:00* Test Item Value Reference Range Interpretation Comments Total Protein (test code = 2885-2) 6.0 6.5-8.1 L [facility] IrvingAlbumin2019-03-12 12:12:00* Test Item Value Reference Range Interpretation Comments Albumin (test code = 1751-7) 3.6 3.5-5.0 [facility] IrvingGlobulin2019-03-12 12:12:00* Test Item Value Reference Range Interpretation Comments Globulin (test code = 82665-6) 2.4 2.3-3.5 [facility] IrvingAlbumin/Globulin Vqyfo1673-78-72 12:12:00 * Test Item Value Reference Range Interpretation Comments Albumin/Globulin Ratio (test code = 1759-0) 1.5 0.8-2.0 [facility] IrvingAlkaline Ylapxdbosgq1695-48-07 12:12:00* Test Item Value Reference Range Interpretation Comments Alkaline Phosphatase (test code = 6768-6) 59 40-150 [facility] IrvingCreatine Ovegnj1488-61-09 12:12:00* Test Item Value Reference Range Interpretation Comments Creatine Kinase (test code = 2157-6) 61 30-200 [facility] IrvingUrine [id number] 12:05:00* Test Item Value Reference Range Interpretation Comments Urine WBC (test code = 5821-4) NONE 0-5 [facility] IrvingUrine CQF3449-37-10 12:05:00* Test Item Value Reference Range Interpretation Comments Urine RBC (test code = 54280-0) 0-5 0-5 [facility] IrvingUrine Ntboqhri5338-07-82 12:05:00* Test Item Value Reference Range Interpretation Comments Urine Bacteria (test code = 85937-1) NONE NONE [facility] IrvingUrine Epithelial Heset3956-22-76 12:05:00 * Test Item Value Reference Range Interpretation Comments Urine Epithelial Cells (test code = 46842-6) FEW NONE [facility] IrvingUrine Fine Granular Axppi6001-18-68 12:05:00* Test Item Value Reference Range Interpretation Comments Urine Fine Granular Casts (test code = 69757-1) 1-5 >0 H [facility] IrvingProthrombin Hmzc7438-82-24 12:02:00* Test Item Value Reference Range Interpretation Comments Prothrombin Time (test code = 5902-2) 19.6 11.9-14.5 H [facility] IrvingProthromb Time International Ratio 2018-07-17 12:02:00* Test Item Value Reference Range Interpretation Comments Prothromb Time International Ratio (test code = 6301-6) 1.59 Oral Anticoagulant Therapy INR Values:1. Low Intensity Therapy 1.5 - 2.02 . Moderate Intensity Therapy 2.0 - 3.03. High Intensity Therapy(1) 2.5 - 3. 54. High Intensity Therapy(2) 3.0 - 4.05. Panic Value INR > 5.0 [facility] IrvingActivated Partial Thromboplast Time 2018-07-17 12:02:00* Test Item Value Reference Range Interpretation Comments Activated Partial Thromboplast Time (test code = 07577-2) 40.7 23.8-35.5 H [facility] IrvingUrine Mysle4294-62-86 12:00:00* Test Item Value Reference Range Interpretation Comments Urine Color (test code = 5778-6) YELLOW YELLOW [facility] IrvingUrine Qpbtkhf0802-79-04 12:00:00* Test Item Value Reference Range Interpretation Comments Urine Clarity (test code = 35981-9) HAZY CLEAR [facility] IrvingUrine Specific Iaolwer5046-99-75 12:00:00 * Test Item Value Reference Range Interpretation Comments Urine Specific Finley (test code = 5811-5) 1.010 1.010-1.02 5 [facility] IrvingUrine pO0189-22-06 12:00:00* Test Item Value Reference Range Interpretation Comments Urine pH (test code = 39104-9) 7 5-7 [facility] IrvingUrine Leukocyte Cxjywyzg0256-82-95 12:00:00* Test Item Value Reference Range Interpretation Comments Urine Leukocyte Esterase (test code = 5799-2) NEGATIVE NEGATIVE [facility] IrvingUrine Bupljdu3163-97-55 12:00:00* Test Item Value Reference Range Interpretation Comments Urine Nitrite (test code = 63865-5) NEGATIVE NEGATIVE [facility] IrvingUrine Amkxnqi1088-66-31 12:00:00* Test Item Value Reference Range Interpretation Comments Urine Protein (test code = 5804-0) NEGATIVE NEGATIVE [facility] IrvingUrine Glucose (UA)2018-07-17 12:00:00* Test Item Value Reference Range Interpretation Comments Urine Glucose (UA) (test code = 2349-9) NEGATIVE NEGATIVE [facility] IrvingUrine Yfzywlc4579-23-47 12:00:00* Test Item Value Reference Range Interpretation Comments Urine Ketones (test code = 97921-3) NEGATIVE NEGATIVE [facility] IrvingUrine Xlumizwiqwmu4551-89-39 12:00:00* Test Item Value Reference Range Interpretation Comments Urine Urobilinogen (test code = 72867-9) 0.2 0.2-1 [facility] IrvingUrine Jcjavodit6174-20-83 12:00:00* Test Item Value Reference Range Interpretation Comments Urine Bilirubin (test code = 1978-6) NEGATIVE NEGATIVE [facility] IrvingUrine Odyqz4809-16-43 12:00:00* Test Item Value Reference Range Interpretation Comments Urine Blood (test code = 24991-0) TRACE NEGATIVE H [facility] IrvingAmmonia2019-03-12 12:00:00* Test Item Value Reference Range Interpretation Comments Ammonia (test code = 97114-7) 45 31-123 [facility] IrvingCT ABDOMEN/PELVIS [id number] 07:07:00 [facility] [address] [place] [address] Patient Name: ELVIS MEDELLIN MR #: [id number] : 1940 Age/Sex: 78/M Req #: [id number] Adm Physician: Ordered by: YENI STEPHENS MD Report #: [id number] Location: CT Room/Bed: Procedure: [id number] CT/CT ABDOMEN/PELVIS W Exam Date: 07/13/18 Exam [...] COPY TO: YENI STEPHENS MD B-TYPE NATRIURETIC IEPULEY5518-10-15 12:28:00* Test Item Value Reference Range Interpretation Comments B-TYPE NATRIURETIC PEPTIDE (test code = BNP) 1638.99 pgram/mL 0-100 H BASIC METABOLIC [id number] 12:17:00* Test Item Value Reference Range Interpretation [...] = CA) 8.5 mg/dL 8.5-10.1 N SERUM [id number] 12:17:00* Test Item Value Reference Range Interpretation Comments SERUM IRON (test code = IRON) 33 ug/dL 50-175 L BASIC METABOLIC OLDYT0571-14-22 12:11:00* Test Item Value Reference Range Interpretation [...] (test code = CA) mg/dL 8.5-10.1 SERUM YMFQ4174-32-71 12:11:00* Test Item Value Reference Range Interpretation Comments SERUM IRON (test code = IRON) ug/dL 50-175 CBC W/AUTO LQQD2465-77-33 11:25:00* Test Item Value Reference Range Interpretation [...] = NRBC#) 0.00 K/mm3 0.0-0.1 N RETICULOCYTE UOUWE0031-18-19 11:25:00* Test Item Value Reference Range Interpretation [...] is indicative of iron deficiency. BASIC METABOLIC LJAKN1417-71-45 11:44:00* Test Item Value Reference Range Interpretation [...] = CA) 8.1 mg/dL 8.5-10.1 L SERUM OHFH3787-51-11 11:44:00* Test Item Value Reference Range Interpretation Comments SERUM IRON (test code = IRON) 21 ug/dL 50-175 L MBLUUHX8062-88-53 11:44:00* Test Item Value Reference Range Interpretation Comments DIGOXIN (test code = DIG) 0.4 ng/mL 0.90-2.0 L NO TE: Spironolactone interference may cause a decrease inreported Digoxin results of 11-30 %. CBC W/AUTO CVGX6823-73-01 11:26:00* Test Item Value Reference Range Interpretation [...] = MDIFF) NO, ONLY SCAN NEEDED DIFFERENTIAL [id number] 11:26:00* Test Item Value Reference Range Interpretation [...] code = PLTMORPH) APPEAR LARGE BASIC METABOLIC [id number] 11:19:00* Test Item Value Reference Range Interpretation [...] (test code = CA) mg/dL 8.5-10.1 SERUM [id number] 11:19:00* Test Item Value Reference Range Interpretation Comments SERUM IRON (test code = IRON) ug/dL 50-175 ETSJRUS7712-55-40 11:19:00* Test Item Value Reference Range Interpretation Comments DIGOXIN (test code = DIG) ng/mL 0.90-2.0 CBC W/AUTO [id number] 10:47:00* Test Item Value Reference Range Interpretation [...] = MDIFF) NO, ONLY SCAN NEEDED DIFFERENTIAL [id number] 10:47:00* Test Item Value Reference Range Interpretation Comments STAIN ACCEPTABILITY (test code = STN ACCEPTABLE) CABOT RINGS (test code = CAB) MORPHOLOGY COMMENT (test code = MOC) PLATELET ESTIMATE (test code = PLTEST) PLATELET MORPHOLOGY (test code = PLTMORPH) CBC W/AUTO [id number] 10:47:00* Test Item Value Reference Range Interpretation [...] = MDIFF) NO, ONLY SCAN NEEDED DIFFERENTIAL [id number] 10:47:00* Test Item Value Reference Range Interpretation Comments STAIN ACCEPTABILITY (test code = STN ACCEPTABLE) CABOT RINGS (test code = CAB) MORPHOLOGY COMMENT (test code = MOC) PLATELET ESTIMATE (test code = PLTEST) PLATELET MORPHOLOGY (test code = PLTMORPH) CBC W/AUTO [id number] 10:47:00* Test Item Value Reference Range Interpretation [...] = MDIFF) NO, ONLY SCAN NEEDED DIFFERENTIAL [id number] 10:47:00* Test Item Value Reference Range Interpretation Comments STAIN ACCEPTABILITY (test code = STN ACCEPTABLE) MORPHOLOGY COMMENT (test code = MOC) PLATELET ESTIMATE (test code = PLTEST) PLATELET MORPHOLOGY (test code = PLTMORPH) CBC W/AUTO [id number] 10:47:00* Test Item Value Reference Range Interpretation [...] = MDIFF) NO, ONLY SCAN NEEDED DIFFERENTIAL [id number] 10:47:00* Test Item Value Reference Range Interpretation Comments STAIN ACCEPTABILITY (test code = STN ACCEPTABLE) CABOT RINGS (test code = CAB) MORPHOLOGY COMMENT (test code = MOC) PLATELET ESTIMATE (test code = PLTEST) PLATELET MORPHOLOGY (test code = PLTMORPH) Bedside Wrjfnlm4467-52-60 15:51:00* Test Item Value Reference Range Interpretation Comments Bedside Glucose (test code = 91604-1) 133 70-120 H Meter ID: [id number] Scott & [facility] Center – IrvingB-Type Natriuretic Rmknwwm1354-99-78 02:27:00* Test Item Value Reference Range Interpretation Comments B-Type Natriuretic Peptide (test code = 05038-5) 2532.6 0-100 H [facility] IrvingCreatine Kinase [id number] 02:27:00* Test Item Value Reference Range Interpretation Comments Creatine Kinase MB (test code = 74730-7) 2.20 0-5.0 [facility] IrvingTroponin [id number] 02:27:00* Test Item Value Reference Range Interpretation Comments Troponin I (test code = QJV0136) 0.061 0-0.300 [facility] IrvingCHEST SINGLE (PORTABLE)2018-05-29 02:23:00 [address] [address] Patient Name: ELVIS MEDELLIN MR #: [id number] : 1940 Age/Sex: 78/M Req #: [id number] Adm Physician: Ordered by: SKYE VOSS MD Report #: [id number] Location: ER Room/Bed: Procedure: 0122-0 004 DX/CHEST SINGLE (PORTABLE) Exam Date: 05/29/18 E xam Time: 147 REPORT STATUS: Rhonda d EXAMINATION: CHEST SINGLE [...] acute thoracic abnormality. Signed by: DR. Chase Parks MD on 019 2:25 AM Dictated By: CHASE PARKS MD 4 Transcribed By: MUNDO on 05/29/18224 CO PY TO: SKYE VOSS MD Sodium Ealfj1117-50-69 02:12:00* Test Item Value Reference Range Interpretation Comments Sodium Level (test code = 2951-2) 137 136-145 [facility] IrvingPotassium Tlryz0434-61-51 02:12:00* Test Item Value Reference Range Interpretation Comments Potassium Level (test code = 2823-3) 4.9 3.5-5.1 [facility] IrvingChloride Edmkc0189-10-89 02:12:00* Test Item Value Reference Range Interpretation Comments Chloride Level (test code = 2075-0) 105 98-107 [facility] IrvingCarbon Dioxide Zhrhb7488-78-88 02:12:00* Test Item Value Reference Range Interpretation Comments Carbon Dioxide Level (test code = 2028-9) 21 22-29 L [facility] IrvingAnion Qet7686-90-71 02:12:00* Test Item Value Reference Range Interpretation Comments Anion Gap (test code = 10996-0) 15.9 8-16 [facility] IrvingBlood Urea Rrudvdmu9851-38-79 02:12:00* Test Item Value Reference Range Interpretation Comments Blood Urea Nitrogen (test code = 3094-0) 24 7-26 [facility] IrvingCreatinine2019-01-22 02:12:00* Test Item Value Reference Range Interpretation Comments Creatinine (test code = 2160-0) 1.43 0.72-1.25 H [facility] IrvingBUN/Creatinine Aodlj7069-30-53 02:12:00* Test Item Value Reference Range Interpretation Comments BUN/Creatinine Ratio (test code = 3097-3) 17 6-25 [facility] IrvingEstimat Glomerular Filtration Rate 2018-05-29 02:12:00* Test Item Value Reference Range Interpretation Comments Estimat Glomerular Filtration Rate (test code = 230183704) 48 >60 L Ranges were taken from the National Kidney Disease Education Program and the [employer] literature.Reference ranges:60 or greater: Ajijak25-19 ( for 3 consecutive months): Chronic kidney disease 15 or less: Kidney failureBaylor Scott & White Medical Center – IrvingGlucose Jadcs7526-20-29 02:12:00* Test Item Value Reference Range Interpretation Comments Glucose Level (test code = OHI5747) 116 74-118 [facility] IrvingCalcium Dllkl8117-08-31 02:12:00* Test Item Value Reference Range Interpretation Comments Calcium Level (test code = 15013-1) 8.3 8.4-10.2 L [facility] IrvingTotal Jgvsuxiuz5341-72-39 02:12:00* Test Item Value Reference Range Interpretation Comments Total Bilirubin (test code = 1975-2) 0.7 0.2-1.2 [facility] IrvingAspartate Amino Transf (AST/SGOT) 2018-05-29 02:12:00* Test Item Value Reference Range Interpretation Comments Aspartate Amino Transf (AST/SGOT) (test code = Aspartate Amino Transf (AST/SGOT)) 18 5-34 [facility] IrvingAlanine Aminotransferase (ALT/SGPT) 2018-05-29 02:12:00* Test Item Value Reference Range Interpretation Comments Alanine Aminotransferase (ALT/SGPT) (test code = 1742-6) 20 0-55 [facility] IrvingTotal Onuiabh3781-60-34 02:12:00* Test Item Value Reference Range Interpretation Comments Total Protein (test code = 2885-2) 5.8 6.5-8.1 L [facility] IrvingAlbumin2019-01-22 02:12:00* Test Item Value Reference Range Interpretation Comments Albumin (test code = 1751-7) 3.2 3.5-5.0 L [facility] IrvingGlobulin2019-01-22 02:12:00* Test Item Value Reference Range Interpretation Comments Globulin (test code = 64410-3) 2.6 2.3-3.5 [facility] IrvingAlbumin/Globulin Ggogj6008-66-07 02:12:00 * Test Item Value Reference Range Interpretation Comments Albumin/Globulin Ratio (test code = 1759-0) 1.2 0.8-2.0 [facility] IrvingAlkaline Beitkgrykxo6814-40-45 02:12:00* Test Item Value Reference Range Interpretation Comments Alkaline Phosphatase (test code = 6768-6) 82 40-150 [facility] IrvingCreatine Orzyif1810-54-84 02:12:00* Test Item Value Reference Range Interpretation Comments Creatine Kinase (test code = 2157-6) 75 30-200 [facility] IrvingWhite Blood Rakpy9501-36-98 01:59:00* Test Item Value Reference Range Interpretation Comments White Blood Count (test code = 6690-2) 6.72 4.8-10.8 [facility] IrvingRed Blood Fzolo2944-45-11 01:59:00* Test Item Value Reference Range Interpretation Comments Red Blood Count (test code = 789-8) 3.32 4.3-5.7 L [facility] IrvingHemoglobin2019-01-22 01:59:00* Test Item Value Reference Range Interpretation Comments Hemoglobin (test code = 90016-6) 8.6 14.0-18.0 L [facility] IrvingHematocrit2019-01-22 01:59:00* Test Item Value Reference Range Interpretation Comments Hematocrit (test code = 4544-3) 29.8 38.2-49.6 L [facility] IrvingMean Corpuscular Dyrfya1194-15-45 01:59:00* Test Item Value Reference Range Interpretation Comments Mean Corpuscular Volume (test code = 787-2) 89.8 81-99 [facility] IrvingMean Corpuscular Szrkkenbrh8424-26-14 01:59:00* Test Item Value Reference Range Interpretation Comments Mean Corpuscular Hemoglobin (test code = 785-6) 25.9 28-32 L [facility] IrvingMean Corpuscular Hemoglobin Concent 2018-05-29 01:59:00* Test Item Value Reference Range Interpretation Comments Mean Corpuscular Hemoglobin Concent (test code = 786-4) 28.9 31-35 L [facility] IrvingRed Cell Distribution Zmcbc4772-25-08 01:59:00* Test Item Value Reference Range Interpretation Comments Red Cell Distribution Width (test code = 59586-4) 19.8 11.7 -14.4 H [facility] IrvingPlatelet Escsb0494-54-34 01:59:00* Test Item Value Reference Range Interpretation Comments Platelet Count (test code = 777-3) 258 140-360 [facility] IrvingNeutrophils (%) (Auto)2018-05-29 01:59:00 * Test Item Value Reference Range Interpretation Comments Neutrophils (%) (Auto) (test code = 48406-1) 70.3 38.7-80.0 [facility] IrvingLymphocytes (%) (Auto)2018-05-29 01:59:00 * Test Item Value Reference Range Interpretation Comments Lymphocytes (%) (Auto) (test code = 736-9) 18.9 18.0-39.1 [facility] IrvingMonocytes (%) (Auto)2018-05-29 01:59:00* Test Item Value Reference Range Interpretation Comments Monocytes (%) (Auto) (test code = 5905-5) 9.2 4.4-11.3 [facility] IrvingEosinophils (%) (Auto)2018-05-29 01:59:00 * Test Item Value Reference Range Interpretation Comments Eosinophils (%) (Auto) (test code = 713-8) 0.4 0.0-6.0 [facility] IrvingBasophils (%) (Auto)2018-05-29 01:59:00* Test Item Value Reference Range Interpretation Comments Basophils (%) (Auto) (test code = 706-2) 0.6 0.0-1.0 [facility] IrvingIM GRANULOCYTES %2018-05-29 01:59:00* Test Item Value Reference Range Interpretation Comments IM GRANULOCYTES % (test code = IM GRANULOCYTES %) 0.6 0.0- 1.0 [facility] IrvingNeutrophils # (Auto)2018-05-29 01:59:00* Test Item Value Reference Range Interpretation Comments Neutrophils # (Auto) (test code = 751-8) 4.7 2.1-6.9 [facility] IrvingLymphocytes # (Auto)2018-05-29 01:59:00* Test Item Value Reference Range Interpretation Comments Lymphocytes # (Auto) (test code = 96978-1) 1.3 1.0-3.2 [facility] IrvingMonocytes # (Auto)2018-05-29 01:59:00* Test Item Value Reference Range Interpretation Comments Monocytes # (Auto) (test code = 742-7) 0.6 0.2-0.8 [facility] IrvingEosinophils # (Auto)2018-05-29 01:59:00* Test Item Value Reference Range Interpretation Comments Eosinophils # (Auto) (test code = 711-2) 0.0 0.0-0.4 [facility] IrvingBasophils # (Auto)2018-05-29 01:59:00* Test Item Value Reference Range Interpretation Comments Basophils # (Auto) (test code = 704-7) 0.0 0.0-0.1 [facility] IrvingAbsolute Immature Granulocyte (auto 2018-05-29 01:59:00* Test Item Value Reference Range Interpretation Comments Absolute Immature Granulocyte (auto (jacqueline t code = Absolute Immature Granulocyte (auto) 0.04 0-0.1 [facility] IrvingProthrombin Qdlo0193-70-35 01:59:00* Test Item Value Reference Range Interpretation Comments Prothrombin Time (test code = 5902-2) 17.3 11.9-14.5 H [facility] IrvingProthromb Time International Ratio 2018-05-29 01:59:00* Test Item Value Reference Range Interpretation Comments Prothromb Time International Ratio (test code = 6301-6) 1.30 Oral Anticoagulant Therapy INR Values:1. Low Intensity Therapy 1.5 - 2.02 . Moderate Intensity Therapy 2.0 - 3.03. High Intensity Therapy(1) 2.5 - 3. 54. High Intensity Therapy(2) 3.0 - 4.05. Panic Value INR > 5.0 [facility] IrvingActivated Partial Thromboplast Time 2018-05-29 01:59:00* Test Item Value Reference Range Interpretation Comments Activated Partial Thromboplast Time (test code = 71971-8) 37.1 23.8-35.5 [facility]2019-01-18 06:54:00* Test Item Value Reference Range Interpretation Comments Iron Level (test code = 2498-4) 202 65-175 [facility]2019-01-18 06:54:00* Test Item Value Reference Range Interpretation Comments Iron Level (test code = 2498-4) 202 65-175 [facility]2019-01-18 06:54:00* Test Item Value Reference Range Interpretation Comments Iron Level (test code = 2498-4) 202 65-175 [facility]2019-01-18 06:39:00* Test Item Value Reference Range Interpretation Comments Sodium Level (test code = 2951-2) 139 136-145 [facility] IrvingPotassium Osslg3677-02-88 06:39:00* Test Item Value Reference Range Interpretation Comments Potassium Level (test code = 2823-3) 4.3 3.5-5.1 [facility] IrvingChloride Pffhj8755-01-14 06:39:00* Test Item Value Reference Range Interpretation Comments Chloride Level (test code = 2075-0) 106 98-107 [facility] IrvingCarbon Dioxide Irxid5212-12-64 06:39:00* Test Item Value Reference Range Interpretation Comments Carbon Dioxide Level (test code = 2028-9) 24 22-29 [facility] IrvingAnion Yes0284-40-74 06:39:00* Test Item Value Reference Range Interpretation Comments Anion Gap (test code = 85138-9) 13.3 8-16 [facility] IrvingBlood Urea Kmxxlnht6064-80-73 06:39:00* Test Item Value Reference Range Interpretation Comments Blood Urea Nitrogen (test code = 3094-0) 28 7-26 [facility] IrvingCreatinine2019-01-18 06:39:00* Test Item Value Reference Range Interpretation Comments Creatinine (test code = 2160-0) 1.02 0.72-1.25 [facility] IrvingBUN/Creatinine Chxxp3127-52-45 06:39:00* Test Item Value Reference Range Interpretation Comments BUN/Creatinine Ratio (test code = 3097-3) 27 6-25 [facility] IrvingEstimat Glomerular Filtration Rate 2018-05-25 06:39:00* Test Item Value Reference Range Interpretation Comments Estimat Glomerular Filtration Rate (test code = 462779833) > 60 >60 Ranges were taken from the National Kidney Disease Education Program and the [employer] literature.Reference ranges:60 or greater: Pocbup07-72 ( for 3 consecutive months): Chronic kidney disease 15 or less: Kidney failureBaylor Scott & White Medical Center – IrvingGlucose Owhsb1987-89-94 06:39:00* Test Item Value Reference Range Interpretation Comments Glucose Level (test code = ROY3005) 73 74-118 L [facility] IrvingCalcium Urmcg1122-69-84 06:39:00* Test Item Value Reference Range Interpretation Comments Calcium Level (test code = 23213-7) 8.4 8.4-10.2 [facility] IrvingTotal Zbnghvbvp5903-53-89 06:39:00* Test Item Value Reference Range Interpretation Comments Total Bilirubin (test code = 1975-2) 1.2 0.2-1.2 [facility] IrvingAspartate Amino Transf (AST/SGOT) 2018-05-25 06:39:00* Test Item Value Reference Range Interpretation Comments Aspartate Amino Transf (AST/SGOT) (test code = Aspartate Amino Transf (AST/SGOT)) 15 5-34 [facility] IrvingAlanine Aminotransferase (ALT/SGPT) 2018-05-25 06:39:00* Test Item Value Reference Range Interpretation Comments Alanine Aminotransferase (ALT/SGPT) (test code = 1742-6) 19 0-55 [facility] IrvingTotal Bskiglk8567-55-31 06:39:00* Test Item Value Reference Range Interpretation Comments Total Protein (test code = 2885-2) 5.5 6.5-8.1 L [facility] IrvingAlbumin2019-01-18 06:39:00* Test Item Value Reference Range Interpretation Comments Albumin (test code = 1751-7) 3.1 3.5-5.0 L [facility] IrvingGlobulin2019-01-18 06:39:00* Test Item Value Reference Range Interpretation Comments Globulin (test code = 24806-0) 2.4 2.3-3.5 [facility] IrvingAlbumin/Globulin Dalnf2305-41-11 06:39:00 * Test Item Value Reference Range Interpretation Comments Albumin/Globulin Ratio (test code = 1759-0) 1.3 0.8-2.0 [facility] IrvingAlkaline Otioxjxfjho9530-53-81 06:39:00* Test Item Value Reference Range Interpretation Comments Alkaline Phosphatase (test code = 6768-6) 65 40-150 [facility] IrvingWhite Blood Vfwoy0740-92-96 06:11:00* Test Item Value Reference Range Interpretation Comments White Blood Count (test code = 6690-2) 4.56 4.8-10.8 L [facility] IrvingRed Blood Tpotl1389-95-31 06:11:00* Test Item Value Reference Range Interpretation Comments Red Blood Count (test code = 789-8) 3.02 4.3-5.7 L [facility] IrvingHemoglobin2019-01-18 06:11:00* Test Item Value Reference Range Interpretation Comments Hemoglobin (test code = 34613-9) 7.8 14.0-18.0 L [facility] IrvingHematocrit2019-01-18 06:11:00* Test Item Value Reference Range Interpretation Comments Hematocrit (test code = 4544-3) 26.6 38.2-49.6 L [facility] IrvingMean Corpuscular Heloxn7470-58-57 06:11:00* Test Item Value Reference Range Interpretation Comments Mean Corpuscular Volume (test code = 787-2) 88.1 81-99 [facility] IrvingMean Corpuscular Ipfnyeqrkq7568-14-60 06:11:00* Test Item Value Reference Range Interpretation Comments Mean Corpuscular Hemoglobin (test code = 785-6) 25.8 28-[address] [address] Hemoglobin Concent 2018-05-25 06:11:00* Test Item Value Reference Range Interpretation Comments Mean Corpuscular Hemoglobin Concent (test code = 786-4) 29.3 31-35 L [facility] IrvingRed Cell Distribution Osdqg1200-32-72 06:11:00* Test Item Value Reference Range Interpretation Comments Red Cell Distribution Width (test code = 22548-4) 18.2 11.7 -14.4 H [facility] IrvingPlatelet Bdqlz7483-82-15 06:11:00* Test Item Value Reference Range Interpretation Comments Platelet Count (test code = 777-3) 171 140-360 [facility] IrvingNeutrophils (%) (Auto)2018-05-25 06:11:00 * Test Item Value Reference Range Interpretation Comments Neutrophils (%) (Auto) (test code = 13724-8) 69.2 38.7-80.0 [facility] IrvingLymphocytes (%) (Auto)2018-05-25 06:11:00 * Test Item Value Reference Range Interpretation Comments Lymphocytes (%) (Auto) (test code = 736-9) 20.0 18.0-39.1 [facility] IrvingMonocytes (%) (Auto)2018-05-25 06:11:00* Test Item Value Reference Range Interpretation Comments Monocytes (%) (Auto) (test code = 5905-5) 9.0 4.4-11.3 [facility] IrvingEosinophils (%) (Auto)2018-05-25 06:11:00 * Test Item Value Reference Range Interpretation Comments Eosinophils (%) (Auto) (test code = 713-8) 0.7 0.0-6.0 [facility] IrvingBasophils (%) (Auto)2018-05-25 06:11:00* Test Item Value Reference Range Interpretation Comments Basophils (%) (Auto) (test code = 706-2) 0.7 0.0-1.0 [facility] IrvingIM GRANULOCYTES %2018-05-25 06:11:00* Test Item Value Reference Range Interpretation Comments IM GRANULOCYTES % (test code = IM GRANULOCYTES %) 0.4 0.0- 1.0 [facility] IrvingNeutrophils # (Auto)2018-05-25 06:11:00* Test Item Value Reference Range Interpretation Comments Neutrophils # (Auto) (test code = 751-8) 3.2 2.1-6.9 [facility] IrvingLymphocytes # (Auto)2018-05-25 06:11:00* Test Item Value Reference Range Interpretation Comments Lymphocytes # (Auto) (test code = 61356-9) 0.9 1.0-3.2 L [facility] IrvingMonocytes # (Auto)2018-05-25 06:11:00* Test Item Value Reference Range Interpretation Comments Monocytes # (Auto) (test code = 742-7) 0.4 0.2-0.8 [facility] IrvingEosinophils # (Auto)2018-05-25 06:11:00* Test Item Value Reference Range Interpretation Comments Eosinophils # (Auto) (test code = 711-2) 0.0 0.0-0.4 [facility] IrvingBasophils # (Auto)2018-05-25 06:11:00* Test Item Value Reference Range Interpretation Comments Basophils # (Auto) (test code = 704-7) 0.0 0.0-0.1 [facility] IrvingAbsolute Immature Granulocyte (auto 2018-05-25 06:11:00* Test Item Value Reference Range Interpretation Comments Absolute Immature Granulocyte (auto (jacqueline t code = Absolute Immature Granulocyte (auto) 0.02 0-0.1 [facility] IrvingCHEST SINGLE (PORTABLE)2018-05-24 18:57:00 [place] [address] Patient Name: ELVIS MEDELLIN MR #: [id number] : 1940 Age/Sex: 78/M Req #: [id number] Adm Physician: AIDEN CABELLO MD Ordered by: RAJINDER GAMA MD Report #: [id number] Location: [facility] Room/Bed: [place] [address] Procedure: [id number] D X/CHEST SINGLE (PORTABLE) Exam Date: 05/24/18 [...] acute bony abnormalities. Signed by: Dr. Steve Fiore M.D. on 05/24/2018 7:01 PM Dictated By: STEVE FIORE MD 00 Transcribed By: MUNDO on 05/24/181900 COPY TO: RAJINDER GAMA MD Prothrombin Mvxk5552-42-58 11:15:00* Test Item Value Reference Range Interpretation Comments Prothrombin Time (test code = 5902-2) 18.5 11.9-14.5 H [facility] IrvingProthromb Time International Ratio 2018-05-24 11:15:00* Test Item Value Reference Range Interpretation Comments Prothromb Time International Ratio (test code = 6301-6) 1.42 Oral Anticoagulant Therapy INR Values:1. Low Intensity Therapy 1.5 - 2.02 . Moderate Intensity Therapy 2.0 - 3.03. High Intensity Therapy(1) 2.5 - 3. 54. High Intensity Therapy(2) 3.0 - 4.05. Panic Value INR > 5.0 [facility] IrvingCreatine Opwzxe9281-78-14 11:13:00* Test Item Value Reference Range Interpretation Comments Creatine Kinase (test code = 2157-6) 58 30-200 [facility] IrvingCreatine Kinase TV1095-35-76 11:13:00* Test Item Value Reference Range Interpretation Comments Creatine Kinase MB (test code = 00261-1) 1.90 0-5.0 [facility] IrvingTroponin E7820-04-53 11:13:00* Test Item Value Reference Range Interpretation Comments Troponin I (test code = TMN8826) 0.080 0-0.300 [facility]odium Tozug4971-08-09 03:23:00* Test Item Value Reference Range Interpretation Comments Sodium Level (test code = 2951-2) 137 136-145 [facility] IrvingPotassium Vygco9754-70-64 03:23:00* Test Item Value Reference Range Interpretation Comments Potassium Level (test code = 2823-3) 3.8 3.5-5.1 [facility] IrvingChloride Buqix5239-90-20 03:23:00* Test Item Value Reference Range Interpretation Comments Chloride Level (test code = 2075-0) 103 98-107 [facility] IrvingCarbon Dioxide Fslrt2402-54-29 03:23:00* Test Item Value Reference Range Interpretation Comments Carbon Dioxide Level (test code = 2028-9) 23 22-29 [facility] IrvingAnion Cii7537-88-86 03:23:00* Test Item Value Reference Range Interpretation Comments Anion Gap (test code = 87078-3) 14.8 8-16 [facility] IrvingBlood Urea Bvuuethh3133-51-67 03:23:00* Test Item Value Reference Range Interpretation Comments Blood Urea Nitrogen (test code = 3094-0) 20 7-26 [facility] IrvingCreatinine2018-12-08 03:23:00* Test Item Value Reference Range Interpretation Comments Creatinine (test code = 2160-0) 1.18 0.72-1.25 [facility] IrvingBUN/Creatinine Yvsjz6298-69-19 03:23:00* Test Item Value Reference Range Interpretation Comments BUN/Creatinine Ratio (test code = 3097-3) 17 6-25 [facility] IrvingEstimat Glomerular Filtration Rate 2018-04-14 03:23:00* Test Item Value Reference Range Interpretation Comments Estimat Glomerular Filtration Rate (test code = 626446519) 60 >60 Ranges were taken from the National Kidney Disease Education Program and the [employer] first[employer] Kid[employer] Foundation literature.Reference ranges:60 or greater: Jktatn49-13 ( for 3 consecutive months): Chronic kidney disease 15 or less: Kidney failureBaylor Scott & White Medical Center – IrvingGlucose Jpiga3762-49-27 03:23:00* Test Item Value Reference Range Interpretation Comments Glucose Level (test code = YTM7084) 127 74-118 H [facility] IrvingCalcium Rchsb0675-61-59 03:23:00* Test Item Value Reference Range Interpretation Comments Calcium Level (test code = 85446-2) 8.6 8.4-10.2 [facility] IrvingTotal Dfwcvhwxv2573-13-15 03:23:00* Test Item Value Reference Range Interpretation Comments Total Bilirubin (test code = 1975-2) 0.5 0.2-1.2 [facility] IrvingAspartate Amino Transf (AST/SGOT) 2018-04-14 03:23:00* Test Item Value Reference Range Interpretation Comments Aspartate Amino Transf (AST/SGOT) (test code = Aspartate Amino Transf (AST/SGOT)) 20 5-34 [facility] IrvingAlanine Aminotransferase (ALT/SGPT) 2018-04-14 03:23:00* Test Item Value Reference Range Interpretation Comments Alanine Aminotransferase (ALT/SGPT) (test code = 1742-6) 49 0-55 [facility] IrvingTotal Ufafmap0885-48-93 03:23:00* Test Item Value Reference Range Interpretation Comments Total Protein (test code = 2885-2) 6.1 6.5-8.1 L [facility] IrvingAlbumin2018-12-08 03:23:00* Test Item Value Reference Range Interpretation Comments Albumin (test code = 1751-7) 3.6 3.5-5.0 [facility] IrvingGlobulin2018-12-08 03:23:00* Test Item Value Reference Range Interpretation Comments Globulin (test code = 61892-1) 2.5 2.3-3.5 [facility] IrvingAlbumin/Globulin Oiyko3743-00-32 03:23:00 * Test Item Value Reference Range Interpretation Comments Albumin/Globulin Ratio (test code = 1759-0) 1.4 0.8-2.0 [facility] IrvingAlkaline Egmvyesklsp5275-89-76 03:23:00* Test Item Value Reference Range Interpretation Comments Alkaline Phosphatase (test code = 6768-6) 79 40-150 [facility] IrvingProthrombin Btbl9794-36-10 03:22:00* Test Item Value Reference Range Interpretation Comments Prothrombin Time (test code = 5902-2) 14.3 11.9-14.5 [facility] IrvingProthromb Time International Ratio 2018-04-14 03:22:00* Test Item Value Reference Range Interpretation Comments Prothromb Time International Ratio (test code = 6301-6) 1.02 Oral Anticoagulant Therapy INR Values:1. Low Intensity Therapy 1.5 - 2.02 . Moderate Intensity Therapy 2.0 - 3.03. High Intensity Therapy(1) 2.5 - 3. 54. High Intensity Therapy(2) 3.0 - 4.05. Panic Value INR > 5.0 [facility] IrvingActivated Partial Thromboplast Time 2018-04-14 03:22:00* Test Item Value Reference Range Interpretation Comments Activated Partial Thromboplast Time (test code = 16596-0) 37.9 23.8-35.5 H [facility] IrvingActivated Partial Thromboplast Time 2018-04-14 03:22:00* Test Item Value Reference Range Interpretation Comments Activated Partial Thromboplast Time (test code = 44464-5) 37.9 23.8-35.5 H [facility] IrvingWhite Blood Kgszi1320-89-05 02:58:00* Test Item Value Reference Range Interpretation Comments White Blood Count (test code = 6690-2) 7.31 4.8-10.8 [facility] IrvingRed Blood Zmbal6054-64-71 02:58:00* Test Item Value Reference Range Interpretation Comments Red Blood Count (test code = 789-8) 2.90 4.3-5.7 L [facility] IrvingHemoglobin2018-12-08 02:58:00* Test Item Value Reference Range Interpretation Comments Hemoglobin (test code = 64408-1) 7.8 14.0-18.0 L [facility] IrvingHematocrit2018-12-08 02:58:00* Test Item Value Reference Range Interpretation Comments Hematocrit (test code = 4544-3) 24.8 38.2-49.6 L [facility] IrvingMean Corpuscular Trohgy6554-71-51 02:58:00* Test Item Value Reference Range Interpretation Comments Mean Corpuscular Volume (test code = 787-2) 85.5 81-99 [facility] IrvingMean Corpuscular Higcoddwgw7100-41-15 02:58:00* Test Item Value Reference Range Interpretation Comments Mean Corpuscular Hemoglobin (test code = 785-6) 26.9 28-32 L [facility] IrvingMean Corpuscular Hemoglobin Concent 2018-04-14 02:58:00* Test Item Value Reference Range Interpretation Comments Mean Corpuscular Hemoglobin Concent (test code = 786-4) 31.5 31-35 [facility] IrvingRed Cell Distribution Edyrs8907-96-30 02:58:00* Test Item Value Reference Range Interpretation Comments Red Cell Distribution Width (test code = 12990-7) 15.0 11.7 -14.4 H [facility] IrvingPlatelet Sihgy5518-30-55 02:58:00* Test Item Value Reference Range Interpretation Comments Platelet Count (test code = 777-3) 252 140-360 [facility] IrvingNeutrophils (%) (Auto)2018-04-14 02:58:00 * Test Item Value Reference Range Interpretation Comments Neutrophils (%) (Auto) (test code = 20237-3) 75.3 38.7-80.0 [facility] IrvingLymphocytes (%) (Auto)2018-04-14 02:58:00 * Test Item Value Reference Range Interpretation Comments Lymphocytes (%) (Auto) (test code = 736-9) 14.5 18.0-39.1 L [facility] IrvingMonocytes (%) (Auto)2018-04-14 02:58:00* Test Item Value Reference Range Interpretation Comments Monocytes (%) (Auto) (test code = 5905-5) 8.9 4.4-11.3 [facility] IrvingEosinophils (%) (Auto)2018-04-14 02:58:00 * Test Item Value Reference Range Interpretation Comments Eosinophils (%) (Auto) (test code = 713-8) 0.1 0.0-6.0 [facility] IrvingBasophils (%) (Auto)2018-04-14 02:58:00* Test Item Value Reference Range Interpretation Comments Basophils (%) (Auto) (test code = 706-2) 0.5 0.0-1.0 [facility] IrvingIM GRANULOCYTES %2018-04-14 02:58:00* Test Item Value Reference Range Interpretation Comments IM GRANULOCYTES % (test code = IM GRANULOCYTES %) 0.7 0.0- 1.0 [facility] IrvingNeutrophils # (Auto)2018-04-14 02:58:00* Test Item Value Reference Range Interpretation Comments Neutrophils # (Auto) (test code = 751-8) 5.5 2.1-6.9 [facility] IrvingLymphocytes # (Auto)2018-04-14 02:58:00* Test Item Value Reference Range Interpretation Comments Lymphocytes # (Auto) (test code = 09228-8) 1.1 1.0-3.2 [facility] IrvingMonocytes # (Auto)2018-04-14 02:58:00* Test Item Value Reference Range Interpretation Comments Monocytes # (Auto) (test code = 742-7) 0.7 0.2-0.8 [facility] IrvingEosinophils # (Auto)2018-04-14 02:58:00* Test Item Value Reference Range Interpretation Comments Eosinophils # (Auto) (test code = 711-2) 0.0 0.0-0.4 [facility] IrvingBasophils # (Auto)2018-04-14 02:58:00* Test Item Value Reference Range Interpretation Comments Basophils # (Auto) (test code = 704-7) 0.0 0.0-0.1 [facility] IrvingAbsolute Immature Granulocyte (auto 2018-04-14 02:58:00* Test Item Value Reference Range Interpretation Comments Absolute Immature Granulocyte (auto (jacqueline t code = Absolute Immature Granulocyte (auto) 0.05 0-0.1 [facility] IrvingCHEST SINGLE (PORTABLE)2018 06:45:00 [facility] [address] [place] [address] Patient Name: ELVIS MEDELLIN MR #: [id number] : 1940 Age/Sex: 78/M Req #: [id number] [facility] Physician: AIDEN CABELLO MD Ordered by: TRAVIS ESCALONA MD Report #: [id number] Location: [facility] Room/Bed: [address] Procedure: 1108-00 02 DX/CHEST SINGLE (PORTABLE) Exam Date: 03/15/18 Ex am Time: 0535 REPORT STATUS: Signed EXAMINATION: CHEST SINGLE (PORTABLE) INDICATION: Shortness of deneen th. SOB [id number] COMPARISON: 02/03/2018 FINDINGS: AP view TUBES [...] acute thoracic abnormality. Signed by: DR. Chase Parks MD on 2018 6:46 AM Dictated By: CHASE PARKS MD [facility] Signed By: CHASE PARKS MD on 03/15/18645 Transcribed By: MUNDO on 12/23 COPY TO: TRAVIS ESCALONA MD Prostate Specific Zdzqznq7929-96-09 05:17:00* Test Item Value Reference Range Interpretation Comments Prostate Specific Antigen (test code = 2857-1) 2.8 0.0-4.0 Arielle ECLIA methodology.According to the [employer], Serum PSAshould decrease and remain [...] or absenceof malig nant disease.Performed at: - Lab[address] [id number] Director: Keith Matthew MD, Phone: [phone] Scott & White Medical Center – IrvingProstate Specific Ysdqyai7439-68-35 05:17:00* Test Item Value Reference Range Interpretation Comments Prostate Specific Antigen (test code = 2857-1) 2.8 0.0-4.0 Arielle ECLIA methodology.According to the [employer], Serum PSAshould decrease and remain at undetectable levels afterradical prostatectomy. The AUA defines biochemicalrecurrence as an initial PSA value 0.2 ng/mL or grea terfollowed by a subsequent confirmatory PSA value 0.2 ng/mLor greater. Values o btained with different assay methods orkits cannot be used interchangeably. Resu lts cannot beinterpreted as absolute evidence of the presence or absenceof malig nant disease.Performed at: [address] [id number] Director: Keith Matthew MD, Phone: [phone] Scott & White Medical Center – IrvingProstate Specific Brlgowe4744-40-80 05:17:00* Test Item Value Reference Range Interpretation Comments Prostate Specific Antigen (test code = 2857-1) 2.8 0.0-4.0 Arielle ECLIA methodology.According to the [employer], Serum PSAshould decrease and remain [...] or absenceof malig nant disease.Performed at: - [address] [id number] Director: Keith Matthew MD, Phone: [phone] Scott & White Medical Center – IrvingBedside Dsblkns9264-92-92 18:25:00* Test Item Value Reference Range Interpretation Comments Bedside Glucose (test code = 57666-5) 181 70-120 H Meter ID: [id number] [facility] Glucose 2018-03-14 18:25:00* Test Item Value Reference Range Interpretation Comments Bedside Glucose (test code = 18757-0) 181 70-120 H Meter ID: [id number] Scott & White Medical Center – IrvingDifferential Total Cells Bbkbsdl7470-98-58 11:31:00* Test Item Value Reference Range Interpretation Comments Differential Total Cells Counted (test code = Differen tial Total Cells Counted) 100 [facility] IrvingNeutrophils % (Manual)2018-03-14 11:31:00 * Test Item Value Reference Range Interpretation Comments Neutrophils % (Manual) (test code = 17732-0) 84 40-74 H [facility] IrvingLymphocytes % (Manual)2018-03-14 11:31:00 * Test Item Value Reference Range Interpretation Comments Lymphocytes % (Manual) (test code = 737-7) 9 19-48 L [facility] IrvingMonocytes % (Manual)2018-03-14 11:31:00* Test Item Value Reference Range Interpretation Comments Monocytes % (Manual) (test code = 744-3) 6 3.4-9.0 [facility] IrvingReactive Gccrpzioffi5296-66-33 11:31:00* Test Item Value Reference Range Interpretation Comments Reactive Lymphocytes (test code = 24015-5) 1 [facility] IrvingPlatelet Eakzkdsq6313-47-46 11:31:00* Test Item Value Reference Range Interpretation Comments Platelet Estimate (test code = 72957-5) ADEQUATE [facility] IrvingPlatelet Morphology Copyltx7646-84-49 11:31:00* Test Item Value Reference Range Interpretation Comments Platelet Morphology Comment (test code = 89209-5) NORMAL [facility] IrvingHypochromasia2018-11-07 11:31:00* Test Item Value Reference Range Interpretation Comments Hypochromasia (test code = 728-6) SLIGHT [facility] IrvingAnisocytosis2018-11-07 11:31:00* Test Item Value Reference Range Interpretation Comments Anisocytosis (test code = 702-1) SLIGHT [facility] IrvingRed Cell Morphology Emwcpll5374-94-91 11:31:00* Test Item Value Reference Range Interpretation Comments Red Cell Morphology Comment (test code = 6742-1) NORMAL [facility] IrvingDifferential Total Cells Counted 2018-03-14 11:31:00* Test Item Value Reference Range Interpretation Comments Differential Total Cells Counted (test code = Differen tial Total Cells Counted) 100 [facility] IrvingNeutrophils % (Manual)2018-03-14 11:31:00 * Test Item Value Reference Range Interpretation Comments Neutrophils % (Manual) (test code = 43236-9) 84 40-74 H [facility] IrvingLymphocytes % (Manual)2018-03-14 11:31:00 * Test Item Value Reference Range Interpretation Comments Lymphocytes % (Manual) (test code = 737-7) 9 19-48 L [facility] IrvingMonocytes % (Manual)2018-03-14 11:31:00* Test Item Value Reference Range Interpretation Comments Monocytes % (Manual) (test code = 744-3) 6 3.4-9.0 [facility] IrvingReactive Vgadupcibie8627-55-18 11:31:00* Test Item Value Reference Range Interpretation Comments Reactive Lymphocytes (test code = 13753-3) 1 [facility] IrvingPlatelet Azwgsapf2278-13-73 11:31:00* Test Item Value Reference Range Interpretation Comments Platelet Estimate (test code = 45682-3) ADEQUATE [facility] IrvingPlatelet Morphology Oezsllg9797-19-58 11:31:00* Test Item Value Reference Range Interpretation Comments Platelet Morphology Comment (test code = 29538-7) NORMAL [facility] IrvingHypochromasia2018-11-07 11:31:00* Test Item Value Reference Range Interpretation Comments Hypochromasia (test code = 728-6) SLIGHT [facility] IrvingAnisocytosis2018-11-07 11:31:00* Test Item Value Reference Range Interpretation Comments Anisocytosis (test code = 702-1) SLIGHT [facility] IrvingRed Cell Morphology Mqtnnbw3614-33-62 11:31:00* Test Item Value Reference Range Interpretation Comments Red Cell Morphology Comment (test code = 6742-1) NORMAL [facility] IrvingDifferential Total Cells Counted 2018-03-14 11:31:00* Test Item Value Reference Range Interpretation Comments Differential Total Cells Counted (test code = Differen tial Total Cells Counted) 100 [facility] IrvingNeutrophils % (Manual)2018-03-14 11:31:00 * Test Item Value Reference Range Interpretation Comments Neutrophils % (Manual) (test code = 83416-2) 84 40-74 H [facility] IrvingLymphocytes % (Manual)2018-03-14 11:31:00 * Test Item Value Reference Range Interpretation Comments Lymphocytes % (Manual) (test code = 737-7) 9 19-48 L [facility] IrvingMonocytes % (Manual)2018-03-14 11:31:00* Test Item Value Reference Range Interpretation Comments Monocytes % (Manual) (test code = 744-3) 6 3.4-9.0 [facility] IrvingReactive Ifduahwwwff6146-28-41 11:31:00* Test Item Value Reference Range Interpretation Comments Reactive Lymphocytes (test code = 79778-5) 1 [facility] IrvingPlatelet Pgwuzsvb1641-58-70 11:31:00* Test Item Value Reference Range Interpretation Comments Platelet Estimate (test code = 32020-4) ADEQUATE [facility] IrvingPlatelet Morphology Bxukthp6008-42-45 11:31:00* Test Item Value Reference Range Interpretation Comments Platelet Morphology Comment (test code = 12856-8) NORMAL [facility] IrvingHypochromasia2018-11-07 11:31:00* Test Item Value Reference Range Interpretation Comments Hypochromasia (test code = 728-6) SLIGHT [facility] IrvingAnisocytosis2018-11-07 11:31:00* Test Item Value Reference Range Interpretation Comments Anisocytosis (test code = 702-1) SLIGHT [facility] IrvingRed Cell Morphology Vwvqwui6755-68-79 11:31:00* Test Item Value Reference Range Interpretation Comments Red Cell Morphology Comment (test code = 6742-1) NORMAL [facility] IrvingDifferential Total Cells Counted 2018-03-14 11:31:00* Test Item Value Reference Range Interpretation Comments Differential Total Cells Counted (test code = Differross tial Total Cells Counted) 100 [facility] IrvingNeutrophils % (Manual)2018-03-14 11:31:00 * Test Item Value Reference Range Interpretation Comments Neutrophils % (Manual) (test code = 65580-4) 84 40-74 H [facility] IrvingLymphocytes % (Manual)2018-03-14 11:31:00 * Test Item Value Reference Range Interpretation Comments Lymphocytes % (Manual) (test code = 737-7) 9 19-48 L [facility] IrvingMonocytes % (Manual)2018-03-14 11:31:00* Test Item Value Reference Range Interpretation Comments Monocytes % (Manual) (test code = 744-3) 6 3.4-9.0 [facility] IrvingReactive Ajnjmkevfuc9305-22-20 11:31:00* Test Item Value Reference Range Interpretation Comments Reactive Lymphocytes (test code = 66067-6) 1 [facility] IrvingUrine Daysv0875-89-94 11:28:00* Test Item Value Reference Range Interpretation Comments Urine Blood (test code = 89775-7) NEGATIVE NEGATIVE [facility] IrvingUrine TIH2064-57-92 11:28:00* Test Item Value Reference Range Interpretation Comments Urine WBC (test code = 5821-4) 0-5 0-5 [facility] IrvingUrine SAV4683-35-99 11:28:00* Test Item Value Reference Range Interpretation Comments Urine RBC (test code = 80410-4) 0-5 0-5 [facility] IrvingUrine Utsgxjms7174-04-45 11:28:00* Test Item Value Reference Range Interpretation Comments Urine Bacteria (test code = 31504-8) FEW NONE [facility] IrvingUrine Epithelial Qabtx7922-75-25 11:28:00 * Test Item Value Reference Range Interpretation Comments Urine Epithelial Cells (test code = 66518-5) RARE NONE [facility] Czddu7582-85-88 11:28:00* Test Item Value Reference Range Interpretation Comments Urine Blood (test code = 20702-3) NEGATIVE NEGATIVE [facility] IAG1087-11-27 11:28:00* Test Item Value Reference Range Interpretation Comments Urine WBC (test code = 5821-4) 0-5 0-5 [facility] EKM4342-40-48 11:28:00* Test Item Value Reference Range Interpretation Comments Urine RBC (test code = 07655-4) 0-5 0-5 [facility] Aalsnepq9218-20-98 11:28:00* Test Item Value Reference Range Interpretation Comments Urine Bacteria (test code = 40934-0) FEW NONE [facility] Epithelial Duqra2340-80-79 11:28:00 * Test Item Value Reference Range Interpretation Comments Urine Epithelial Cells (test code = 91358-3) RARE NONE [facility] Bnhbk6025-24-21 11:28:00* Test Item Value Reference Range Interpretation Comments Urine Blood (test code = 44506-4) NEGATIVE NEGATIVE [facility] XEK0082-75-39 11:28:00* Test Item Value Reference Range Interpretation Comments Urine WBC (test code = 5821-4) 0-5 0-5 [facility] NLC1815-29-75 11:28:00* Test Item Value Reference Range Interpretation Comments Urine RBC (test code = 13229-5) 0-5 0-5 [facility] Eygsyrxn4793-07-97 11:28:00* Test Item Value Reference Range Interpretation Comments Urine Bacteria (test code = 97116-7) FEW NONE [facility] Epithelial Jjnsm0780-74-27 11:28:00 * Test Item Value Reference Range Interpretation Comments Urine Epithelial Cells (test code = 85840-1) RARE NONE [facility] Ktoyw7369-60-31 11:19:00* Test Item Value Reference Range Interpretation Comments Urine Color (test code = 5778-6) YELLOW YELLOW [facility] IrvingUrine Zutfguh7052-90-35 11:19:00* Test Item Value Reference Range Interpretation Comments Urine Clarity (test code = 97745-7) SL CLOUDY CLEAR H [facility] IrvingUrine Specific Aqnvujm9050-99-23 11:19:00 * Test Item Value Reference Range Interpretation Comments Urine Specific Finley (test code = 5811-5) 1.015 1.010-1.02 5 [facility] IrvingUrine nT8345-29-04 11:19:00* Test Item Value Reference Range Interpretation Comments Urine pH (test code = 97683-6) 7 5-7 [facility] IrvingU[facility] Leukocyte Zvlvisxq5496-45-16 11:19:00* Test Item Value Reference Range Interpretation Comments Urine Leukocyte Esterase (test code = 5799-2) NEGATIVE NEGATIVE [facility] Fvqwgxp8276-43-93 11:19:00* Test Item Value Reference Range Interpretation Comments Urine Nitrite (test code = 54792-6) NEGATIVE NEGATIVE [facility] IrvingU[facility] Erjgxde8235-68-81 11:19:00* Test Item Value Reference Range Interpretation Comments Urine Protein (test code = 5804-0) NEGATIVE NEGATIVE [facility] IrvingUrine Glucose (UA)2018-03-14 11:19:00* Test Item Value Reference Range Interpretation Comments Urine Glucose (UA) (test code = 2349-9) NEGATIVE NEGATIVE [facility] IrvingU[facility] Tcldobr7933-00-42 11:19:00* Test Item Value Reference Range Interpretation Comments Urine Ketones (test code = 25518-5) NEGATIVE NEGATIVE [facility] IrvingU[facility] Zuqqzwwhwryk6576-11-55 11:19:00* Test Item Value Reference Range Interpretation Comments Urine Urobilinogen (test code = 07347-0) 0.2 0.2-1 [facility] IrvingU[facility] Edwnlkazu4836-44-59 11:19:00* Test Item Value Reference Range Interpretation Comments Urine Bilirubin (test code = 1978-6) NEGATIVE NEGATIVE [facility] IrvingU[facility] Tkcwp2702-47-47 11:19:00* Test Item Value Reference Range Interpretation Comments Urine Color (test code = 5778-6) YELLOW YELLOW [facility] IrvingU[facility] Anxlguk1312-08-92 11:19:00* Test Item Value Reference Range Interpretation Comments Urine Clarity (test code = 52254-0) SL CLOUDY CLEAR H [facility] IrvingUrine Specific Rbzkkcz8004-65-37 11:19:00 * Test Item Value Reference Range Interpretation Comments Urine Specific Finley (test code = 5811-5) 1.015 1.010-1.02 5 [facility] IrvingU[facility] oE7025-00-13 11:19:00* Test Item Value Reference Range Interpretation Comments Urine pH (test code = 87701-1) 7 5-7 [facility] IrvingU[facility] Leukocyte Naxcscwe9250-48-73 11:19:00* Test Item Value Reference Range Interpretation Comments Urine Leukocyte Esterase (test code = 5799-2) NEGATIVE NEGATIVE [facility] IrvingU[facility] Wevaher8969-04-96 11:19:00* Test Item Value Reference Range Interpretation Comments Urine Nitrite (test code = 54391-2) NEGATIVE NEGATIVE [facility] IrvingU[facility] Ykxnzas2325-70-61 11:19:00* Test Item Value Reference Range Interpretation Comments Urine Protein (test code = 5804-0) NEGATIVE NEGATIVE [facility] IrvingU[facility] Glucose (UA)2018-03-14 11:19:00* Test Item Value Reference Range Interpretation Comments Urine Glucose (UA) (test code = 2349-9) NEGATIVE NEGATIVE [facility] IrvingU[facility] Swazbri9919-27-00 11:19:00* Test Item Value Reference Range Interpretation Comments Urine Ketones (test code = 80696-2) NEGATIVE NEGATIVE [facility] IrvingU[facility] Ensjndbrjupx7468-60-94 11:19:00* Test Item Value Reference Range Interpretation Comments Urine Urobilinogen (test code = 51242-9) 0.2 0.2-1 [facility] IrvingU[facility] Lsfljvdxn1568-20-49 11:19:00* Test Item Value Reference Range Interpretation Comments Urine Bilirubin (test code = 1978-6) NEGATIVE NEGATIVE [facility] IrvingU[facility] Xelyf4458-85-78 11:19:00* Test Item Value Reference Range Interpretation Comments Urine Color (test code = 5778-6) YELLOW YELLOW [facility] IrvingU[facility] Hxlfuzo2893-78-54 11:19:00* Test Item Value Reference Range Interpretation Comments Urine Clarity (test code = 95354-7) SL CLOUDY CLEAR H [facility] Specific Jlgmotd6255-58-15 11:19:00 * Test Item Value Reference Range Interpretation Comments Urine Specific Finley (test code = 5811-5) 1.015 1.010-1.02 5 [facility] IrvingU[facility] vS3299-76-29 11:19:00* Test Item Value Reference Range Interpretation Comments Urine pH (test code = 65221-0) 7 5-7 [facility] IrvingU[facility] Leukocyte Hijlptpy6512-60-03 11:19:00* Test Item Value Reference Range Interpretation Comments Urine Leukocyte Esterase (test code = 5799-2) NEGATIVE NEGATIVE [facility] Wjimkhg5352-66-11 11:19:00* Test Item Value Reference Range Interpretation Comments Urine Nitrite (test code = 25429-5) NEGATIVE NEGATIVE [facility] IrvingU[facility] Aahylht9163-23-63 11:19:00* Test Item Value Reference Range Interpretation Comments Urine Protein (test code = 5804-0) NEGATIVE NEGATIVE [facility] Glucose (UA)2018-03-14 11:19:00* Test Item Value Reference Range Interpretation Comments Urine Glucose (UA) (test code = 2349-9) NEGATIVE NEGATIVE [facility] IrvingU[facility] Gnwuuhb1877-32-48 11:19:00* Test Item Value Reference Range Interpretation Comments Urine Ketones (test code = 13823-1) NEGATIVE NEGATIVE [facility] IrvingU[facility] Oyyldkxcngfp6848-07-93 11:19:00* Test Item Value Reference Range Interpretation Comments Urine Urobilinogen (test code = 42384-2) 0.2 0.2-1 [facility] IrvingU[facility] Mlduwopxr1797-77-24 11:19:00* Test Item Value Reference Range Interpretation Comments Urine Bilirubin (test code = 1978-6) NEGATIVE NEGATIVE [facility] IrvingTroponin K8513-42-83 10:11:00* Test Item Value Reference Range Interpretation Comments Troponin I (test code = UBQ5692) 0.005 0-0.300 [facility] IrvingThyroid Stimulating Hormone (TSH) 2018-03-14 10:11:00* Test Item Value Reference Range Interpretation Comments Thyroid Stimulating Hormone (TSH) (test code = 23812-4) 1.726 0.350-4.940 [facility] IrvingThyroid Stimulating Hormone (TSH) 2018-03-14 10:11:00* Test Item Value Reference Range Interpretation Comments Thyroid Stimulating Hormone (TSH) (test code = 94292-4) 1.726 0.350-4.940 [facility] IrvingThyroid Stimulating Hormone (TSH) 2018-03-14 10:11:00* Test Item Value Reference Range Interpretation Comments Thyroid Stimulating Hormone (TSH) (test code = 62168-6) 1.726 0.350-4.940 [facility] IrvingThyroid Stimulating Hormone (TSH) 2018-03-14 10:11:00* Test Item Value Reference Range Interpretation Comments Thyroid Stimulating Hormone (TSH) (test code = 26470-0) 1.726 0.350-4.940 [facility] IrvingBedside Nodgfpf8959-01-75 12:11:00* Test Item Value Reference Range Interpretation Comments Bedside Glucose (test code = 89003-5) 156 70-120 H Meter ID: [id number] [facility] Westodium Level 2018-02-05 05:05:00* Test Item Value Reference Range Interpretation Comments Sodium Level (test code = 2951-2) 137 136-145 [facility] IrvingPotassium Cbzdq1507-52-32 05:05:00* Test Item Value Reference Range Interpretation Comments Potassium Level (test code = 2823-3) 3.3 3.5-5.1 L [facility] IrvingChloride Sfrrt3787-80-24 05:05:00* Test Item Value Reference Range Interpretation Comments Chloride Level (test code = 2075-0) 101 98-107 [facility] IrvingCarbon Dioxide Dyhxp9707-69-41 05:05:00* Test Item Value Reference Range Interpretation Comments Carbon Dioxide Level (test code = 2028-9) 25 22-29 [facility] IrvingAnion Qhz5455-05-92 05:05:00* Test Item Value Reference Range Interpretation Comments Anion Gap (test code = 17051-2) 14.3 8-16 [facility] IrvingBlood Urea Rmysipju5824-55-60 05:05:00* Test Item Value Reference Range Interpretation Comments Blood Urea Nitrogen (test code = 3094-0) 13 7-26 [facility] IrvingCreatinine2018-10-01 05:05:00* Test Item Value Reference Range Interpretation Comments Creatinine (test code = 2160-0) 0.88 0.72-1.25 [facility] IrvingBUN/Creatinine Sfsck4312-05-37 05:05:00* Test Item Value Reference Range Interpretation Comments BUN/Creatinine Ratio (test code = 3097-3) 15 6-25 [facility] IrvingEstimat Glomerular Filtration Rate 2018-02-05 05:05:00* Test Item Value Reference Range Interpretation Comments Estimat Glomerular Filtration Rate (test code = 453682444) 60- >60 Ranges were taken from the National Kidney Disease Education Program and the [employer] literature.Reference ranges:60 or greater: Iwdaqm20-02 ( for 3 consecutive months): Chronic kidney disease 15 or less: Kidney failureB[facility] & [facility] – IrvingGlucose Fcyod7675-43-41 05:05:00* Test Item Value Reference Range Interpretation Comments Glucose Level (test code = DBZ0108) 118 74-118 [facility] IrvingCalcium Fzrpy6153-18-09 05:05:00* Test Item Value Reference Range Interpretation Comments Calcium Level (test code = 52342-9) 8.5 8.4-10.2 [facility] IrvingWhite Blood Kfuim8273-80-12 04:47:00* Test Item Value Reference Range Interpretation Comments White Blood Count (test code = 6690-2) 7.49 4.8-10.8 [facility] IrvingRed Blood Fwwgj2801-74-68 04:47:00* Test Item Value Reference Range Interpretation Comments Red Blood Count (test code = 789-8) 4.15 4.3-5.7 L [facility] IrvingHemoglobin2018-10-01 04:47:00* Test Item Value Reference Range Interpretation Comments Hemoglobin (test code = 25242-2) 11.4 14.0-18.0 L [facility] IrvingHematocrit2018-10-01 04:47:00* Test Item Value Reference Range Interpretation Comments Hematocrit (test code = 4544-3) 35.0 38.2-49.6 L [facility] IrvingMean Corpuscular Obbndo7473-89-69 04:47:00* Test Item Value Reference Range Interpretation Comments Mean Corpuscular Volume (test code = 787-2) 84.3 81-99 [facility] IrvingMean Corpuscular Kwnsnjtcsj7206-56-24 04:47:00* Test Item Value Reference Range Interpretation Comments Mean Corpuscular Hemoglobin (test code = 785-6) 27.5 28-32 L [facility] IrvingMean Corpuscular Hemoglobin Concent 2018-02-05 04:47:00* Test Item Value Reference Range Interpretation Comments Mean Corpuscular Hemoglobin Concent (test code = 786-4) 32.6 31-35 [facility] IrvingRed Cell Distribution Iqito0120-31-69 04:47:00* Test Item Value Reference Range Interpretation Comments Red Cell Distribution Width (test code = 98403-7) 15.6 11.7 -14.4 H [facility] IrvingPlatelet Diweh5362-54-53 04:47:00* Test Item Value Reference Range Interpretation Comments Platelet Count (test code = 777-3) 156 140-360 [facility] IrvingNeutrophils (%) (Auto)2018-02-05 04:47:00 * Test Item Value Reference Range Interpretation Comments Neutrophils (%) (Auto) (test code = 87597-6) 76.8 38.7-80.0 [facility] IrvingLymphocytes (%) (Auto)2018-02-05 04:47:00 * Test Item Value Reference Range Interpretation Comments Lymphocytes (%) (Auto) (test code = 736-9) 10.3 18.0-39.1 L [facility] IrvingMonocytes (%) (Auto)2018-02-05 04:47:00* Test Item Value Reference Range Interpretation Comments Monocytes (%) (Auto) (test code = 5905-5) 10.8 4.4-11.3 [facility] IrvingEosinophils (%) (Auto)2018-02-05 04:47:00 * Test Item Value Reference Range Interpretation Comments Eosinophils (%) (Auto) (test code = 713-8) 1.2 0.0-6.0 [facility] IrvingBasophils (%) (Auto)2018-02-05 04:47:00* Test Item Value Reference Range Interpretation Comments Basophils (%) (Auto) (test code = 706-2) 0.4 0.0-1.0 [facility] IrvingIM GRANULOCYTES %2018-02-05 04:47:00* Test Item Value Reference Range Interpretation Comments IM GRANULOCYTES % (test code = IM GRANULOCYTES %) 0.5 0.0- 1.0 [facility] IrvingNeutrophils # (Auto)2018-02-05 04:47:00* Test Item Value Reference Range Interpretation Comments Neutrophils # (Auto) (test code = 751-8) 5.8 2.1-6.9 [facility] IrvingLymphocytes # (Auto)2018-02-05 04:47:00* Test Item Value Reference Range Interpretation Comments Lymphocytes # (Auto) (test code = 44027-5) 0.8 1.0-3.2 L [facility] IrvingMonocytes # (Auto)2018-02-05 04:47:00* Test Item Value Reference Range Interpretation Comments Monocytes # (Auto) (test code = 742-7) 0.8 0.2-0.8 [facility] IrvingEosinophils # (Auto)2018-02-05 04:47:00* Test Item Value Reference Range Interpretation Comments Eosinophils # (Auto) (test code = 711-2) 0.1 0.0-0.4 [facility] IrvingBasophils # (Auto)2018-02-05 04:47:00* Test Item Value Reference Range Interpretation Comments Basophils # (Auto) (test code = 704-7) 0.0 0.0-0.1 [facility] IrvingAbsolute Immature Granulocyte (auto 2018-02-05 04:47:00* Test Item Value Reference Range Interpretation Comments Absolute Immature Granulocyte (auto (jacqueline t code = Absolute Immature Granulocyte (auto) 0.04 0-0.1 [facility] IrvingCHEST SINGLE (PORTABLE)2018-02-03 08:15:00 [facility] [address] [place] [address] Patient Name: ELVIS MEDELLIN MR #: [id number] : 1940 Age/Sex: 77/M Req #: [id number] Adm Physician: AIDEN CABELLO MD Ordered by: AIDEN CABELLO MD Report #: [id number] Location: ICU Room/Bed: ICU [facility] Procedure: [id number] DX /CHEST SINGLE (PORTABLE) Exam Date: 02/03/18 Exam Ti me: 0715 REPORT STATUS: Signed EXAM: XR CHEST 1 VIEW DATE: 02/04/20 18 7:08 AM INDICATION: Altered mental status, atrial [...] COPY TO: AIDEN CABELLO MD CT BRAIN TF1540-66-91 08:05:00 [place] [address] Patient Name: ELVIS MEDELLIN MR #: [id number] : 1940 Age/Sex: 77/M Req #: [id number] Adm Physician: AIDEN CABELLO MD Ordered by: AIDEN CABELLO MD Report #: [id number] Loca tion: ICU Room/Bed: ICU [facility] Procedure: [id number] CT /CT BRAIN WO Exam Date: 02/03/18 Exam Time: 714 REPORT STATUS: Signed History:AMS, A. fib Comparison [...] 8:10 AM Dictated By: KERVIN MURGUIA MD 9 COPY TO: AIDEN CABELLO MD Total Srjvcicdd9709-46-09 07:35:00* Test Item Value Reference Range Interpretation Comments Total Bilirubin (test code = 1975-2) 0.8 0.2-1.2 [facility] IrvingAspartate Amino Transf (AST/SGOT) 2018-02-03 07:35:00* Test Item Value Reference Range Interpretation Comments Aspartate Amino Transf (AST/SGOT) (test code = Aspartate Amino Transf (AST/SGOT)) 33 5-34 [facility] IrvingAlanine Aminotransferase (ALT/SGPT) 2018-02-03 07:35:00* Test Item Value Reference Range Interpretation Comments Alanine Aminotransferase (ALT/SGPT) (test code = 1742-6) 36 0-55 [facility] IrvingTotal Qfgmmhi7683-80-30 07:35:00* Test Item Value Reference Range Interpretation Comments Total Protein (test code = 2885-2) 5.3 6.5-8.1 L [facility] IrvingAlbumin2018-09-29 07:35:00* Test Item Value Reference Range Interpretation Comments Albumin (test code = 1751-7) 3.3 3.5-5.0 L [facility] IrvingGlobulin2018-09-29 07:35:00* Test Item Value Reference Range Interpretation Comments Globulin (test code = 24828-0) 2.0 2.3-3.5 L [facility] IrvingAlbumin/Globulin Hrzik7330-71-22 07:35:00 * Test Item Value Reference Range Interpretation Comments Albumin/Globulin Ratio (test code = 1759-0) 1.7 0.8-2.0 [facility] IrvingAlkaline Ebnsprtkjwl7312-31-77 07:35:00* Test Item Value Reference Range Interpretation Comments Alkaline Phosphatase (test code = 6768-6) 50 40-150 [facility] IrvingAmylase Omplg4882-51-50 07:35:00* Test Item Value Reference Range Interpretation Comments Amylase Level (test code = 1798-8) 45 25-125 [facility] IrvingAmylase Inuda0548-57-30 07:35:00* Test Item Value Reference Range Interpretation Comments Amylase Level (test code = 1798-8) 45 25-125 [facility] IrvingAmylase Ztwii2809-34-01 07:35:00* Test Item Value Reference Range Interpretation Comments Amylase Level (test code = 1798-8) 45 25-125 [facility] IrvingAmylase Afyun7822-98-96 07:35:00* Test Item Value Reference Range Interpretation Comments Amylase Level (test code = 1798-8) 45 25-125 [facility] IrvingAmylase Iabgw3162-19-76 07:35:00* Test Item Value Reference Range Interpretation Comments Amylase Level (test code = 1798-8) 45 25-125 [facility] IrvingBlood Xdwbumn8347-18-15 20:20:00* Test Item Value Reference Range Interpretation Comments Blood Culture (test code = 95179795) NO GROWTH AFTER 5 DAYS, FINAL REPORT [facility] Qqasugz8345-61-59 20:20:00* Test Item Value Reference Range Interpretation Comments Blood Culture (test code = 43134538) NO GROWTH AFTER 5 DAYS, FINAL REPORT [facility] Kdxxlof6460-52-93 20:20:00* Test Item Value Reference Range Interpretation Comments Blood Culture (test code = 59138139) NO GROWTH AFTER 5 DAYS, FINAL REPORT [facility] IrvingBlood Olgjjiy5115-20-16 20:20:00* Test Item Value Reference Range Interpretation Comments Blood Culture (test code = 84250599) NO GROWTH AFTER 5 DAYS, FINAL REPORT [facility] Kixfnuq4378-92-52 20:20:00* Test Item Value Reference Range Interpretation Comments Blood Culture (test code = 13295207) NO GROWTH AFTER 5 DAYS, FINAL REPORT [facility] IrvingProthrombin Mrod1293-53-32 06:13:00* Test Item Value Reference Range Interpretation Comments Prothrombin Time (test code = 5902-2) 15.0 11.9-14.5 H [facility] IrvingProthromb Time International Ratio 2018-02-01 06:13:00* Test Item Value Reference Range Interpretation Comments Prothromb Time International Ratio (test code = 6301-6) 1.08 Oral Anticoagulant Therapy INR Values:1. Low Intensity Therapy 1.5 - 2.02 . Moderate Intensity Therapy 2.0 - 3.03. High Intensity Therapy(1) 2.5 - 3. 54. High Intensity Therapy(2) 3.0 - 4.05. Panic Value INR > 5.0 [facility] IrvingCreatine Kinase UD1097-97-78 16:49:00* Test Item Value Reference Range Interpretation Comments Creatine Kinase MB (test code = 90465-5) 3.80 0-5.0 [facility] IrvingTroponin Q0617-35-66 16:49:00* Test Item Value Reference Range Interpretation Comments Troponin I (test code = OSA4354) 0.004 0-0.300 [facility] IrvingCreatine Kinase PQ2301-55-00 16:49:00* Test Item Value Reference Range Interpretation Comments Creatine Kinase MB (test code = 45720-4) 3.80 0-5.0 [facility] IrvingCreatine Qpyufw2153-45-28 16:42:00* Test Item Value Reference Range Interpretation Comments Creatine Kinase (test code = 2157-6) 218 30-200 H [facility] IrvingCreatine Bssacs0868-12-09 16:42:00* Test Item Value Reference Range Interpretation Comments Creatine Kinase (test code = 2157-6) 218 30-200 H [facility] IrvingUrine HCH5713-64-06 15:27:00* Test Item Value Reference Range Interpretation Comments Urine WBC (test code = 5821-4) NONE 0-5 [facility] IrvingUrine FUF0637-81-27 15:27:00* Test Item Value Reference Range Interpretation Comments Urine RBC (test code = 76548-1) NONE 0-5 [facility] IrvingUrine Gdjnbqdv4626-87-73 15:27:00* Test Item Value Reference Range Interpretation Comments Urine Bacteria (test code = 77854-1) NONE NONE [facility] IrvingUrine Epithelial Qlthx4095-41-53 15:27:00 * Test Item Value Reference Range Interpretation Comments Urine Epithelial Cells (test code = 36838-3) RARE NONE [facility] IrvingUrine Zkvfp8016-77-72 15:17:00* Test Item Value Reference Range Interpretation Comments Urine Color (test code = 5778-6) YELLOW YELLOW [facility] IrvingUrine Fveonym3121-07-42 15:17:00* Test Item Value Reference Range Interpretation Comments Urine Clarity (test code = 32650-3) CLEAR CLEAR [facility] IrvingUrine Specific Mdmdphb5721-28-58 15:17:00 * Test Item Value Reference Range Interpretation Comments Urine Specific Finley (test code = 5811-5) 1.005 1.010-1.02 5 L [facility] IrvingUrine yW1625-91-78 15:17:00* Test Item Value Reference Range Interpretation Comments Urine pH (test code = 70232-8) 6 5-7 [facility] IrvingU[facility] Leukocyte Alygpvas7261-45-13 15:17:00* Test Item Value Reference Range Interpretation Comments Urine Leukocyte Esterase (test code = 5799-2) NEGATIVE NEGATIVE [facility] IrvingU[facility] Swiujdr4265-07-05 15:17:00* Test Item Value Reference Range Interpretation Comments Urine Nitrite (test code = 63435-3) NEGATIVE NEGATIVE [facility] IrvingUrine Ntgsakl6229-94-14 15:17:00* Test Item Value Reference Range Interpretation Comments Urine Protein (test code = 5804-0) NEGATIVE NEGATIVE [facility] IrvingUrine Glucose (UA)2018-01-30 15:17:00* Test Item Value Reference Range Interpretation Comments Urine Glucose (UA) (test code = 2349-9) NEGATIVE NEGATIVE [facility] IrvingU[facility] Ynlgwjl7288-51-03 15:17:00* Test Item Value Reference Range Interpretation Comments Urine Ketones (test code = 36761-9) NEGATIVE NEGATIVE [facility] IrvingU[facility] Brcuxvtliyqq4770-26-74 15:17:00* Test Item Value Reference Range Interpretation Comments Urine Urobilinogen (test code = 79660-8) 0.2 0.2-1 [facility] IrvingU[facility] Xflkxvpud5001-03-73 15:17:00* Test Item Value Reference Range Interpretation Comments Urine Bilirubin (test code = 1978-6) NEGATIVE NEGATIVE [facility] IrvingUrine Afmpt0018-65-27 15:17:00* Test Item Value Reference Range Interpretation Comments Urine Blood (test code = 66852-2) NEGATIVE NEGATIVE [facility] IrvingLipase2018-09-25 00:17:00* Test Item Value Reference Range Interpretation Comments Lipase (test code = 3040-3) [facility] IrvingLipase2018-09-25 00:17:00* Test Item Value Reference Range Interpretation Comments Lipase (test code = 3040-3) [facility] IrvingLipase2018-09-25 00:17:00* Test Item Value Reference Range Interpretation Comments Lipase (test code = 3040-3) [facility] IrvingLipase2018-09-25 00:17:00* Test Item Value Reference Range Interpretation Comments Lipase (test code = 3040-3) [facility] IrvingLipase2018-09-25 00:17:00* Test Item Value Reference Range Interpretation Comments Lipase (test code = 3040-3) [facility] Thromboplast Time 2018-01-30 00:09:00* Test Item Value Reference Range Interpretation Comments Activated Partial Thromboplast Time (test code = 86364-7) 64.0 23.8-35.5 H [facility] IrvingCT ABDOMEN/PELVIS Q5232-55-88 22:18:00 [facility] [address] [address] Patient Name: ELVIS MEDELLIN MR #: [id number] : 1940 Age/Sex: 77/M Req #: [id number] Adm Physician: Ordered by: MITCHEL TAPIA HABILITATION ASSISTANT Report #: [id number] Location: ER Room/ Bed: Procedure: [id number] CT/CT ABDOMEN/PELVIS W Exa m Date: Exam [...] on 01/27/182226 COPY TO: MITCHEL TAPIA NP US GALLBLADDER 2018-01-27 21:37:[address] [address] Patient Name: ELVIS MEDELLIN MR #: [id number] : 1940 Age/Sex: 77/M Req #: [id number] Adm Physician: Ordered by: MITCHEL TAPIA NP Report #: [id number] Location: ER Room/Bed: Procedure: [id number] US/US GALLBLADDER Exam Al e: 01/27/18 Exam Time: 254 REPORT STATUS: Sign ed EXAM: US GALLBLADDER DATE: 01/27/2018 12:00 AM INDICATION: S abdom inal pain, history of cholelithiasis S [id number] S 0255, COMPARISON: No ne TECHNIQUE: Transverse and longitudinal [...] MD 41 Transcribed By: MUNDO on 01/27/18 214 2 COPY TO: MITCHEL TAPIA HABILITATION ASSISTANT Urine YMM7924-84-19 20:41:00* Test Item Value Reference Range Interpretation Comments Urine WBC (test code = 5821-4) NONE 0-5 [facility] IrvingU[facility] BEN4440-39-56 20:41:00* Test Item Value Reference Range Interpretation Comments Urine RBC (test code = 84775-5) NONE 0-5 [facility] IrvingU[facility] Qbptwgid7212-08-02 20:41:00* Test Item Value Reference Range Interpretation Comments Urine Bacteria (test code = 45114-5) RARE NONE [facility] IrvingU[facility] Epithelial Qghdh9765-38-68 20:41:00 * Test Item Value Reference Range Interpretation Comments Urine Epithelial Cells (test code = 71347-6) RARE NONE [facility] IrvingU[facility] Zhhcg5909-50-43 20:18:00* Test Item Value Reference Range Interpretation Comments Urine Color (test code = 5778-6) YELLOW YELLOW [facility] IrvingU[facility] Ctjfyby3175-54-80 20:18:00* Test Item Value Reference Range Interpretation Comments Urine Clarity (test code = 29644-6) CLEAR CLEAR [facility] Specific Gzhuvjl3134-22-44 20:18:00 * Test Item Value Reference Range Interpretation Comments Urine Specific Finley (test code = 5811-5) 1.015 1.010-1.02 5 [facility] IrvingU[facility] jQ1202-44-92 20:18:00* Test Item Value Reference Range Interpretation Comments Urine pH (test code = 01173-9) 6 5-7 [facility] Irving[facility] Leukocyte Uwmhdqsn0046-75-21 20:18:00* Test Item Value Reference Range Interpretation Comments Urine Leukocyte Esterase (test code = 5799-2) NEGATIVE NEGATIVE [facility] Uxqmizh9309-38-66 20:18:00* Test Item Value Reference Range Interpretation Comments Urine Nitrite (test code = 33679-0) NEGATIVE NEGATIVE [facility] IrvingU[facility] Yditnpd8580-29-76 20:18:00* Test Item Value Reference Range Interpretation Comments Urine Protein (test code = 5804-0) NEGATIVE NEGATIVE [facility] IrvingU[facility] Glucose (UA)2018-01-27 20:18:00* Test Item Value Reference Range Interpretation Comments Urine Glucose (UA) (test code = 2349-9) NEGATIVE NEGATIVE [facility] IrvingU[facility] Cyncjty1731-02-44 20:18:00* Test Item Value Reference Range Interpretation Comments Urine Ketones (test code = 48578-7) NEGATIVE NEGATIVE [facility] IrvingU[facility] Vcsxpifxjini3161-17-11 20:18:00* Test Item Value Reference Range Interpretation Comments Urine Urobilinogen (test code = 21596-7) 0.2 0.2-1 [facility] IrvingU[facility] Lisighmhc5111-72-15 20:18:00* Test Item Value Reference Range Interpretation Comments Urine Bilirubin (test code = 1978-6) NEGATIVE NEGATIVE [facility] IrvingU[facility] Chuzd7420-94-18 20:18:00* Test Item Value Reference Range Interpretation Comments Urine Blood (test code = 23085-3) NEGATIVE NEGATIVE [facility] IrvingLactic Acid Vkmjk8395-27-93 19:38:00* Test Item Value Reference Range Interpretation Comments Lactic Acid Level (test code = Lactic Acid Level) 10.1 4.5- 19.8 [facility] IrvingLactic Acid Xkfgz7174-77-83 19:38:00* Test Item Value Reference Range Interpretation Comments Lactic Acid Level (test code = Lactic Acid Level) 10.1 4.5- 19.8 [facility] IrvingLactic Acid Zizck1739-88-07 19:38:00* Test Item Value Reference Range Interpretation Comments Lactic Acid Level (test code = Lactic Acid Level) 10.1 4.5- 19.8 [facility] IrvingLactic Acid Piwle3759-65-81 19:38:00* Test Item Value Reference Range Interpretation Comments Lactic Acid Level (test code = Lactic Acid Level) 10.1 4.5- 19.8 [facility] IrvingLactic Acid Hxzyv2479-42-89 19:38:00* Test Item Value Reference Range Interpretation Comments Lactic Acid Level (test code = Lactic Acid Level) 10.1 4.5- 19.8 [facility] IrvingLactic Acid Qjoos7194-18-13 19:38:00* Test Item Value Reference Range Interpretation Comments Lactic Acid Level (test code = Lactic Acid Level) 10.1 4.5- 19.8 [facility] Qvrgt0477-83-15 19:10:00* Test Item Value Reference Range Interpretation Comments Sodium Level (test code = 2951-2) 136 136-145 [facility] IrvingPotassium Bbvxa5852-29-92 19:10:00* Test Item Value Reference Range Interpretation Comments Potassium Level (test code = 2823-3) 4.6 3.5-5.1 [facility] IrvingChloride Hcmcx5024-10-76 19:10:00* Test Item Value Reference Range Interpretation Comments Chloride Level (test code = 2075-0) 100 98-107 [facility] IrvingCarbon Dioxide Xrjlf3369-03-45 19:10:00* Test Item Value Reference Range Interpretation Comments Carbon Dioxide Level (test code = 2028-9) 25 - [facility] IrvingAnion Oru3881-77-78 19:10:00* Test Item Value Reference Range Interpretation Comments Anion Gap (test code = 80994-5) 15.6 8-16 [facility] IrvingBlood Urea Ujvbousv9611-41-27 19:10:00* Test Item Value Reference Range Interpretation Comments Blood Urea Nitrogen (test code = 3094-0) 16 7-26 [facility] IrvingCreatinine2018-09-22 19:10:00* Test Item Value Reference Range Interpretation Comments Creatinine (test code = 2160-0) 1.32 0.72-1.25 H [facility] IrvingBUN/Creatinine Ephiu6329-78-57 19:10:00* Test Item Value Reference Range Interpretation Comments BUN/Creatinine Ratio (test code = 3097-3) 12 - [facility] IrvingEstimat Glomerular Filtration Rate 2018-01-27 19:10:00* Test Item Value Reference Range Interpretation Comments Estimat Glomerular Filtration Rate (test code = 672365654) 53 >60 L Ranges were taken from the National Kidney Disease Education Program and the [employer] literature.Reference ranges:60 or greater: Lzlcch58-45 ( for 3 consecutive months): Chronic kidney disease 15 or less: Kidney failureBaylor Scott & [facility] – IrvingGlucose Yvysf7939-04-09 19:10:00* Test Item Value Reference Range Interpretation Comments Glucose Level (test code = NJX0390) 117 74-118 [facility] IrvingCalcium Qknkw8683-81-82 19:10:00* Test Item Value Reference Range Interpretation Comments Calcium Level (test code = 09109-0) 8.9 8.4-10.2 [facility] IrvingTotal Asshwtsrx8931-25-04 19:10:00* Test Item Value Reference Range Interpretation Comments Total Bilirubin (test code = 1975-2) 0.5 0.2-1.2 [facility] IrvingAspartate Amino Transf (AST/SGOT) 2018-01-27 19:10:00* Test Item Value Reference Range Interpretation Comments Aspartate Amino Transf (AST/SGOT) (test code = Aspartate Amino Transf (AST/SGOT)) 45 5-34 H [facility] IrvingAlanine Aminotransferase (ALT/SGPT) 2018-01-27 19:10:00* Test Item Value Reference Range Interpretation Comments Alanine Aminotransferase (ALT/SGPT) (test code = 1742-6) 38 0-55 [facility] IrvingTotal Tlkvpny7941-51-21 19:10:00* Test Item Value Reference Range Interpretation Comments Total Protein (test code = 2885-2) 6.5 6.5-8.1 [facility] IrvingAlbumin2018-09-22 19:10:00* Test Item Value Reference Range Interpretation Comments Albumin (test code = 1751-7) 3.8 3.5-5.0 [facility] IrvingGlobulin2018-09-22 19:10:00* Test Item Value Reference Range Interpretation Comments Globulin (test code = 25551-8) 2.7 2.3-3.5 [facility] IrvingAlbumin/Globulin Yblvo8661-62-78 19:10:00 * Test Item Value Reference Range Interpretation Comments Albumin/Globulin Ratio (test code = 1759-0) 1.4 0.8-2.0 [facility] IrvingAlkaline Ptmhdvkkcli8853-94-63 19:10:00* Test Item Value Reference Range Interpretation Comments Alkaline Phosphatase (test code = 6768-6) 63 40-150 [facility] IrvingCreatine Lhlcby7316-95-38 19:10:00* Test Item Value Reference Range Interpretation Comments Creatine Kinase (test code = 2157-6) 159 30-200 [facility] IrvingCreatine Kinase ZI6145-51-62 19:10:00* Test Item Value Reference Range Interpretation Comments Creatine Kinase MB (test code = 00726-8) 3.40 0-5.0 [facility] IrvingTroponin J1725-68-88 19:10:00* Test Item Value Reference Range Interpretation Comments Troponin I (test code = HAT8813) -0.001 0-0.300 [facility] IrvingLipase2018-09-22 19:10:00* Test Item Value Reference Range Interpretation Comments Lipase (test code = 3040-3) 147 8-78 H [facility] IrvingWhite Blood Qsqeh5648-83-57 18:49:00* Test Item Value Reference Range Interpretation Comments White Blood Count (test code = 6690-2) 5.69 4.8-10.8 [facility] IrvingRed Blood Lecvz2595-41-46 18:49:00* Test Item Value Reference Range Interpretation Comments Red Blood Count (test code = 789-8) 4.31 4.3-5.7 [facility] IrvingHemoglobin2018-09-22 18:49:00* Test Item Value Reference Range Interpretation Comments Hemoglobin (test code = 52831-9) 11.8 14.0-18.0 L [facility] IrvingHematocrit2018-09-22 18:49:00* Test Item Value Reference Range Interpretation Comments Hematocrit (test code = 4544-3) 36.6 38.2-49.6 L [facility] IrvingMean Corpuscular Biwmlb2651-70-57 18:49:00* Test Item Value Reference Range Interpretation Comments Mean Corpuscular Volume (test code = 787-2) 84.9 81-99 [facility] IrvingMean Corpuscular Bgvibjbjdi5276-77-10 18:49:00* Test Item Value Reference Range Interpretation Comments Mean Corpuscular Hemoglobin (test code = 785-6) 27.4 28-32 L [facility] IrvingMean Corpuscular Hemoglobin Concent 2018-01-27 18:49:00* Test Item Value Reference Range Interpretation Comments Mean Corpuscular Hemoglobin Concent (test code = 786-4) 32.2 31-35 [facility] IrvingRed Cell Distribution Zxmgg2617-67-00 18:49:00* Test Item Value Reference Range Interpretation Comments Red Cell Distribution Width (test code = 95942-8) 15.3 11.7 -14.4 H [facility] IrvingPlatelet Dvrvj3676-37-84 18:49:00* Test Item Value Reference Range Interpretation Comments Platelet Count (test code = 777-3) 222 140-360 [facility] IrvingNeutrophils (%) (Auto)2018-01-27 18:49:00 * Test Item Value Reference Range Interpretation Comments Neutrophils (%) (Auto) (test code = 27597-9) 75.5 38.7-80.0 [facility] IrvingLymphocytes (%) (Auto)2018-01-27 18:49:00 * Test Item Value Reference Range Interpretation Comments Lymphocytes (%) (Auto) (test code = 736-9) 15.1 18.0-39.1 L [facility] IrvingMonocytes (%) (Auto)2018-01-27 18:49:00* Test Item Value Reference Range Interpretation Comments Monocytes (%) (Auto) (test code = 5905-5) 8.1 4.4-11.3 [facility] IrvingEosinophils (%) (Auto)2018-01-27 18:49:00 * Test Item Value Reference Range Interpretation Comments Eosinophils (%) (Auto) (test code = 713-8) 0.4 0.0-6.0 [facility] IrvingBasophils (%) (Auto)2018-01-27 18:49:00* Test Item Value Reference Range Interpretation Comments Basophils (%) (Auto) (test code = 706-2) 0.5 0.0-1.0 [facility] IrvingIM GRANULOCYTES %2018-01-27 18:49:00* Test Item Value Reference Range Interpretation Comments IM GRANULOCYTES % (test code = IM GRANULOCYTES %) 0.4 0.0- 1.0 [facility] IrvingNeutrophils # (Auto)2018-01-27 18:49:00* Test Item Value Reference Range Interpretation Comments Neutrophils # (Auto) (test code = 751-8) 4.3 2.1-6.9 [facility] IrvingLymphocytes # (Auto)2018-01-27 18:49:00* Test Item Value Reference Range Interpretation Comments Lymphocytes # (Auto) (test code = 87130-3) 0.9 1.0-3.2 L [facility] IrvingMonocytes # (Auto)2018-01-27 18:49:00* Test Item Value Reference Range Interpretation Comments Monocytes # (Auto) (test code = 742-7) 0.5 0.2-0.8 [facility] IrvingEosinophils # (Auto)2018-01-27 18:49:00* Test Item Value Reference Range Interpretation Comments Eosinophils # (Auto) (test code = 711-2) 0.0 0.0-0.4 [facility] IrvingBasophils # (Auto)2018-01-27 18:49:00* Test Item Value Reference Range Interpretation Comments Basophils # (Auto) (test code = 704-7) 0.0 0.0-0.1 [facility] IrvingAbsolute Immature Granulocyte (auto 2018-01-27 18:49:00* Test Item Value Reference Range Interpretation Comments Absolute Immature Granulocyte (auto (jacqueline t code = Absolute Immature Granulocyte (auto) 0.02 0-0.1 [facility] IrvingCHES 2 FASUC9868-84-84 08:34:00 [facility] [address] [place] [address] Patient Name: ELVIS MEDELLIN MR #: [id number] : 1940 Age/Sex: 77/M Req #: [id number] Adm Physician: Ordered by: MAINE RAMIRES MD Report #: [id number] Location: ER Room /Bed: Procedure: [id number] DX/CHEST 2 VIEWS Exam Al e: 12/17/17 Exam Time: 0801 REPORT STATUS: Sign ed EXAMINATION: CHEST 2 VIEWS INDICATION: SHARIF SCHULTE: 08/28/2017 FINDINGS: PA and lateral views TUBES [...] te thoracic abnormality. Signed by: Dr. Krystin Herrera MD on 12/17/2017 8 :35 AM Dictated By: KRYSTIN HERRERA MD 4 Transcribed By: MUNDO on 12/17/17834 COPY TO : MAINE RAMIRES MD Urine Mkvti8373-43-93 08:19:00* Test Item Value Reference Range Interpretation Comments Urine Color (test code = 5778-6) YELLOW YELLOW [facility] IrvingUrine Rhbiwhh4598-77-43 08:19:00* Test Item Value Reference Range Interpretation Comments Urine Clarity (test code = 35196-8) CLEAR CLEAR [facility] IrvingUrine Specific Pcdyull0349-63-71 08:19:00 * Test Item Value Reference Range Interpretation Comments Urine Specific Finley (test code = 5811-5) 1.015 1.010-1.02 5 [facility] IrvingUrine lN2317-56-09 08:19:00* Test Item Value Reference Range Interpretation Comments Urine pH (test code = 32300-6) 7 5-7 [facility] IrvingUrine Leukocyte Sceenbsu2960-12-80 08:19:00* Test Item Value Reference Range Interpretation Comments Urine Leukocyte Esterase (test code = 5799-2) NEGATIVE NEGATIVE [facility] [facility] Irving[facility] Kjiyxbq5984-68-04 08:19:00* Test Item Value Reference Range Interpretation Comments Urine Nitrite (test code = 06673-7) NEGATIVE NEGATIVE [facility] Irving[facility] Ybsvxlq5446-94-20 08:19:00* Test Item Value Reference Range Interpretation Comments Urine Protein (test code = 5804-0) NEGATIVE NEGATIVE [facility] Glucose (UA)2017-12-17 08:19:00* Test Item Value Reference Range Interpretation Comments Urine Glucose (UA) (test code = 2349-9) NEGATIVE NEGATIVE [facility] Onzzqci9543-41-91 08:19:00* Test Item Value Reference Range Interpretation Comments Urine Ketones (test code = 15174-5) NEGATIVE NEGATIVE [facility] Nwepdjjcxuyn2604-77-57 08:19:00* Test Item Value Reference Range Interpretation Comments Urine Urobilinogen (test code = 41596-5) 0.2 0.2-1 [facility] Khbxzdkab9171-65-75 08:19:00* Test Item Value Reference Range Interpretation Comments Urine Bilirubin (test code = 1978-6) NEGATIVE NEGATIVE [facility] Rkqwz2749-56-51 08:19:00* Test Item Value Reference Range Interpretation Comments Urine Blood (test code = 89136-9) NEGATIVE NEGATIVE [facility] Irving[facility] QDI4466-63-22 08:19:00* Test Item Value Reference Range Interpretation Comments Urine WBC (test code = 5821-4) 0-5 0-5 [facility] XVK3626-55-43 08:19:00* Test Item Value Reference Range Interpretation Comments Urine RBC (test code = 17049-6) 0-5 0-5 [facility] Xrvfvbxm3499-10-83 08:19:00* Test Item Value Reference Range Interpretation Comments Urine Bacteria (test code = 64767-4) RARE NONE [facility] IrvingU[facility] Epithelial Hzdmr5263-32-72 08:19:00 * Test Item Value Reference Range Interpretation Comments Urine Epithelial Cells (test code = 05408-1) RARE NONE [facility] Bjxdp2405-36-77 08:14:00* Test Item Value Reference Range Interpretation Comments Sodium Level (test code = 2951-2) 140 136-145 [facility] IrvingPotassium Vihpj1373-08-27 08:14:00* Test Item Value Reference Range Interpretation Comments Potassium Level (test code = 2823-3) 4.5 3.5-5.1 [facility] IrvingChloride Kunqs9153-08-04 08:14:00* Test Item Value Reference Range Interpretation Comments Chloride Level (test code = 2075-0) 104 98-107 [facility] IrvingCarbon Dioxide Bzjqw9571-03-50 08:14:00* Test Item Value Reference Range Interpretation Comments Carbon Dioxide Level (test code = 2028-9) 28 22-29 [facility] IrvingAnion Nif0859-30-47 08:14:00* Test Item Value Reference Range Interpretation Comments Anion Gap (test code = 01213-1) 12.5 8-16 [facility] IrvingBlood Urea Rpdvhhur6312-92-48 08:14:00* Test Item Value Reference Range Interpretation Comments Blood Urea Nitrogen (test code = 3094-0) 15 7-26 [facility] IrvingCreatinine2018-08-12 08:14:00* Test Item Value Reference Range Interpretation Comments Creatinine (test code = 2160-0) 1.11 0.72-1.25 [facility] IrvingBUN/Creatinine Yubkh8469-31-70 08:14:00* Test Item Value Reference Range Interpretation Comments BUN/Creatinine Ratio (test code = 3097-3) 14 6-25 [facility] IrvingEstimat Glomerular Filtration Rate 2017-12-17 08:14:00* Test Item Value Reference Range Interpretation Comments Estimat Glomerular Filtration Rate (test code = 60233-1) 60- >60 Ranges were taken from the National Kidney Disease Education Program and the [employer] literature.Reference ranges:60 or greater: Nmmmcj30-73 ( for 3 consecutive months): Chronic kidney disease 15 or less: Kidney failureB[facility] & [facility] IrvingGlucose Wojdt3186-64-12 08:14:00* Test Item Value Reference Range Interpretation Comments Glucose Level (test code = NKV1888) 122 74-118 H [facility] IrvingCalcium Uhiqj8306-66-23 08:14:00* Test Item Value Reference Range Interpretation Comments Calcium Level (test code = 72309-7) 9.1 8.4-10.2 [facility] IrvingTotal Rcavcswsd8888-75-01 08:14:00* Test Item Value Reference Range Interpretation Comments Total Bilirubin (test code = 1975-2) 1.4 0.2-1.2 H [facility] IrvingAspartate Amino Transf (AST/SGOT) 2017-12-17 08:14:00* Test Item Value Reference Range Interpretation Comments Aspartate Amino Transf (AST/SGOT) (test code = Aspartate Amino Transf (AST/SGOT)) 32 5-34 [facility] IrvingAlanine Aminotransferase (ALT/SGPT) 2017-12-17 08:14:00* Test Item Value Reference Range Interpretation Comments Alanine Aminotransferase (ALT/SGPT) (test code = 1742-6) 38 0-55 [facility] IrvingTotal Ikzvofc2836-58-50 08:14:00* Test Item Value Reference Range Interpretation Comments Total Protein (test code = 2885-2) 6.3 6.5-8.1 L [facility] IrvingAlbumin2018-08-12 08:14:00* Test Item Value Reference Range Interpretation Comments Albumin (test code = 1751-7) 3.8 3.5-5.0 [facility] IrvingGlobulin2018-08-12 08:14:00* Test Item Value Reference Range Interpretation Comments Globulin (test code = 52027-9) 2.5 2.3-3.5 [facility] IrvingAlbumin/Globulin Wqock3822-96-93 08:14:00 * Test Item Value Reference Range Interpretation Comments Albumin/Globulin Ratio (test code = 1759-0) 1.5 0.8-2.0 [facility] IrvingAlkaline Pqzdglfvbdh6127-00-82 08:14:00* Test Item Value Reference Range Interpretation Comments Alkaline Phosphatase (test code = 6768-6) 63 40-150 [facility] IrvingCreatine Nguixh6115-06-84 08:14:00* Test Item Value Reference Range Interpretation Comments Creatine Kinase (test code = 2157-6) 557 30-200 H [facility] IrvingCreatine Kinase VA7999-27-41 08:14:00* Test Item Value Reference Range Interpretation Comments Creatine Kinase MB (test code = 20961-2) 2.90 0-5.0 [facility] IrvingTroponin C3162-52-84 08:14:00* Test Item Value Reference Range Interpretation Comments Troponin I (test code = TAV2821) 0.150 0-0.300 [facility] IrvingAmylase Opcsy9159-24-18 08:14:00* Test Item Value Reference Range Interpretation Comments Amylase Level (test code = 1798-8) 99 25-125 [facility] IrvingLipase2018-08-12 08:14:00* Test Item Value Reference Range Interpretation Comments Lipase (test code = 3040-3) 109 8-78 H [facility] IrvingAmylase Clsha5623-68-75 08:14:00* Test Item Value Reference Range Interpretation Comments Amylase Level (test code = 1798-8) 99 25-125 [facility] IrvingWhite Blood Vwffh7447-39-81 07:55:00* Test Item Value Reference Range Interpretation Comments White Blood Count (test code = 6690-2) 6.24 4.8-10.8 [facility] IrvingRed Blood Kvqsh1834-25-30 07:55:00* Test Item Value Reference Range Interpretation Comments Red Blood Count (test code = 789-8) 3.93 4.3-5.7 L [facility] IrvingHemoglobin2018-08-12 07:55:00* Test Item Value Reference Range Interpretation Comments Hemoglobin (test code = 65397-6) 10.8 14.0-18.0 L [facility] IrvingHematocrit2018-08-12 07:55:00* Test Item Value Reference Range Interpretation Comments Hematocrit (test code = 4544-3) 33.7 38.2-49.6 L [facility] IrvingMean Corpuscular Crhmns3275-96-26 07:55:00* Test Item Value Reference Range Interpretation Comments Mean Corpuscular Volume (test code = 787-2) 85.8 81-99 [facility] IrvingMean Corpuscular Nhrgsmdgmy9880-59-72 07:55:00* Test Item Value Reference Range Interpretation Comments Mean Corpuscular Hemoglobin (test code = 785-6) 27.5 28-32 L [facility] IrvingMean Corpuscular Hemoglobin Concent 2017-12-17 07:55:00* Test Item Value Reference Range Interpretation Comments Mean Corpuscular Hemoglobin Concent (test code = 786-4) 32.0 31-35 [facility] IrvingRed Cell Distribution Bhmea0546-73-25 07:55:00* Test Item Value Reference Range Interpretation Comments Red Cell Distribution Width (test code = 97232-9) 14.5 11.7 -14.4 H [facility] IrvingPlatelet Xbmvl3221-28-32 07:55:00* Test Item Value Reference Range Interpretation Comments Platelet Count (test code = 777-3) 161 140-360 [facility] IrvingNeutrophils (%) (Auto)2017-12-17 07:55:00 * Test Item Value Reference Range Interpretation Comments Neutrophils (%) (Auto) (test code = 16588-0) 83.7 38.7-80.0 H [facility] IrvingLymphocytes (%) (Auto)2017-12-17 07:55:00 * Test Item Value Reference Range Interpretation Comments Lymphocytes (%) (Auto) (test code = 736-9) 7.9 18.0-39.1 L [facility] IrvingMonocytes (%) (Auto)2017-12-17 07:55:00* Test Item Value Reference Range Interpretation Comments Monocytes (%) (Auto) (test code = 5905-5) 6.9 4.4-11.3 [facility] IrvingEosinophils (%) (Auto)2017-12-17 07:55:00 * Test Item Value Reference Range Interpretation Comments Eosinophils (%) (Auto) (test code = 713-8) 0.5 0.0-6.0 [facility] IrvingBasophils (%) (Auto)2017-12-17 07:55:00* Test Item Value Reference Range Interpretation Comments Basophils (%) (Auto) (test code = 706-2) 0.5 0.0-1.0 [facility] IrvingIM GRANULOCYTES %2017-12-17 07:55:00* Test Item Value Reference Range Interpretation Comments IM GRANULOCYTES % (test code = IM GRANULOCYTES %) 0.5 0.0- 1.0 [facility] IrvingNeutrophils # (Auto)2017-12-17 07:55:00* Test Item Value Reference Range Interpretation Comments Neutrophils # (Auto) (test code = 751-8) 5.2 2.1-6.9 [facility] IrvingLymphocytes # (Auto)2017-12-17 07:55:00* Test Item Value Reference Range Interpretation Comments Lymphocytes # (Auto) (test code = 52805-6) 0.5 1.0-3.2 L [facility] IrvingMonocytes # (Auto)2017-12-17 07:55:00* Test Item Value Reference Range Interpretation Comments Monocytes # (Auto) (test code = 742-7) 0.4 0.2-0.8 [facility] IrvingEosinophils # (Auto)2017-12-17 07:55:00* Test Item Value Reference Range Interpretation Comments Eosinophils # (Auto) (test code = 711-2) 0.0 0.0-0.4 [facility] IrvingBasophils # (Auto)2017-12-17 07:55:00* Test Item Value Reference Range Interpretation Comments Basophils # (Auto) (test code = 704-7) 0.0 0.0-0.1 [facility] IrvingAbsolute Immature Granulocyte (auto 2017-12-17 07:55:00* Test Item Value Reference Range Interpretation Comments Absolute Immature Granulocyte (auto (jacqueline t code = Absolute Immature Granulocyte (auto) 0.03 0-0.1 [facility] IrvingBASIC METABOLIC DJZVD0776-93-42 04:11:00 * Test Item Value Reference Range [...] 413) 0 /100 WBC 0 -0 POCT-GLUCOSE KXTSP6394-79-34 03:47:00* Test Item Value Reference Range Interpretation Comments POC-GLUCOSE METER (BEAKER) (test code = 1538) 141 mg/dL 70-110 H TESTED AT [place] [address] TLWV-KPT6059-37-08 18:15:00* Test Item Value Reference Range Interpretation Comments ACTIVATED CLOTTING TIME (BEAKER) (test code = 441) 125 sec TESTED AT [place] [address] QDNE-TUJ2585-04-08 16:33:00* Test Item Value Reference Range Interpretation Comments ACTIVATED CLOTTING TIME (BEAKER) (test code = 441) 340 sec TESTED AT [place] [address] LUUQ-KPC2610-47-08 16:20:00* Test Item Value Reference Range Interpretation Comments ACTIVATED CLOTTING TIME (BEAKER) (test code = 441) 296 sec TESTED AT [place] [address] IDNE-OKH0118-28-08 15:49:00* Test Item Value Reference Range Interpretation Comments ACTIVATED CLOTTING TIME (BEAKER) (test code = 441) 307 sec TESTED AT [place] [address] OWQF-HYX4396-16-08 15:24:00* Test Item Value Reference Range Interpretation Comments ACTIVATED CLOTTING TIME (BEAKER) (test code = 441) 268 sec TESTED AT [address] [address] PROTHROMBIN TIME/KLG0712-93-28 08:41:00* Test Item Value Reference Range Interpretation [...] pat ients with mechanical heart valves.BASIC METABOLIC NTWNG5794-08-99 08:18:00* Test Item Value Reference Range Interpretation [...] DIALYSIS PATIENTS. CBC W/PLT COUNT & AUTO XRMPNPBMZREB3120-83-81 08:04:00* Test Item Value Reference Range Interpretation [...] (test code = 2801) 1 % 0-1 KDTP-VVGQJNXSWO1905-17-07 08:43:00* Test Item Value Reference Range Interpretation Comments POC-CREATININE (BEAKER) (test code = 1859) 1.2 mg/dL 0.6-1.3 TESTED AT [facility] [address] [facility] [address] POC-EGFR (BEAKER) (test code = 1860) 59 mL/min/1.73M2 CT, HEART, [id number] 14:59:00Reason for Exam:->AfibReason for Exam:->SOB Addendum BeginsREPORT STATUS:A Addendum: I agree with the previously described non vascular findings. Signed: Shamar Barahona MDReport Ve rified Date/Time: 12/11/2017 14:59:15 Reading Location: [place] [address] Angio Body Reading RoomAddendum EndsFINAL REPORT CT angiography of t he pulmonary veins, 11 December 2017 INDICATION: This is a 77 years old male w ith history of atrial fibrillation presented here for pulmonary vein ostial marialuisa ing. This study is performed in an attempt to avoid invasive procedure. TECHNIQU E: Spiral acquisition during intravenous contrast administration using a Cadent multislice cardiac CT scanner without prospective ECG triggering. Multiplanar reconstructions were performed interactively by the interpreting physician using an independent (Review Trackers) workstation. Please refer to the contrast sheet [...] Right upper 19 mm 17 mm 3.7 zp3Zygkq lower 16 mm 1 4 mm 1.7 oh3Zdpj upper 19 mm 15 mm 2.4 ll9Xsnp lower 19 mm 17 mm 2.3 cm2 [...] dictated regarding the non-vascular findings by the Manager Star Radiologist. Signed: Delvin Hernandezeport Verified Date/Time: 12/11/2017 08:33:56 Reading Location: [place] [address] Cardiology MRI Electronically signed by: SHAMAR merchant 12/11/2017 02:59 PM BASIC METABOLIC [id number] 07:20:00* Test Item Value Reference Range Interpretation [...] code = 697) 9.4 mg/dL 8.4-10.2 EGFR (JOSEAKER) (test code = 1092) 52 mL/min/1.73 sq m ESTIMATED GFR IS NOT ACCURATE CREATININE CLEARANCE IN PREDICTING GLOMERULAR FILTRATION RATE. ESTIMATED GFR IS NOT APPLICABLE FOR DIALYSIS PATIENTS. PT/[id number] 07:10:00* Test Item Value Reference Range Interpretation Comments PROTIME (MARYANNE) (test code = 759) 23.8 seconds 11.7-14.7 H INR (MARYANNE) (test code = 370) 2.1 <=5.9 PARTIAL THROMBOPLASTIN TIME (BEFUENTES) (test code = 760) 56.1 seconds 22.5-36.0 H RECOMMENDED COUMADIN/WARFARIN INR THERAPY RANGESSTANDARD DOSE: 2.0 - 3.0 Inclu leonor: PROPHYLAXIS for venous thrombosis, systemic embolization; TREATMENT for estevan ous thrombosis and/or pulmonary embolus.HIGH RISK: Target INR is 2.5-3.5 for pat ients with mechanical heart valves.Prothrombin Pxqw1170-77-57 10:32:00* Test Item Value Reference Range Interpretation Comments Prothrombin Time (test code = 5902-2) 14.9 11.9-14.5 H [facility] IrvingProthromb Time International Ratio 2017-12-04 10:32:00* Test Item Value Reference Range Interpretation Comments Prothromb Time International Ratio (test code = 6301-6) 1.27 Oral Anticoagulant Therapy INR Values:1. Low Intensity Therapy 1.5 - 2.02 . Moderate Intensity Therapy 2.0 - 3.03. High Intensity Therapy(1) 2.5 - 3. 54. High Intensity Therapy(2) 3.0 - 4.05. Panic Value INR > 5.0 [facility] IrvingProthrombin Wwqb2444-87-16 10:32:00* Test Item Value Reference Range Interpretation Comments Prothrombin Time (test code = 5902-2) 14.9 11.9-14.5 H [facility] IrvingProthromb Time International Ratio 2017-12-04 10:32:00* Test Item Value Reference Range Interpretation Comments Prothromb Time International Ratio (test code = 6301-6) 1.27 Oral Anticoagulant Therapy INR Values:1. Low Intensity Therapy 1.5 - 2.02 . Moderate Intensity Therapy 2.0 - 3.03. High Intensity Therapy(1) 2.5 - 3. 54. High Intensity Therapy(2) 3.0 - 4.05. Panic Value INR > 5.0 [facility] IrvingTriglycerides Nwzqj1925-46-06 12:32:00* Test Item Value Reference Range Interpretation Comments Triglycerides Level (test code = 2571-8) 70 0-149 [facility] IrvingCholesterol Zzojg1487-49-50 12:32:00* Test Item Value Reference Range Interpretation Comments Cholesterol Level (test code = 2093-3) 140 0-199 Less than 200 mg/dL Low Htoj320 - 239 mg/dL Borderline Nzyv987 m g/dl and greater High Risk [facility] IrvingLDL Soxxgmqvdvb7567-69-70 12:32:00* Test Item Value Reference Range Interpretation Comments LDL Cholesterol (test code = 2089-1) 90 60-130 [facility] IrvingHDL Ffmnazslwqf0433-47-35 12:32:00* Test Item Value Reference Range Interpretation Comments HDL Cholesterol (test code = 2085-9) 36 40-60 L [facility] IrvingCholesterol/HDL Mfjup9618-56-28 12:32:00 * Test Item Value Reference Range Interpretation Comments Cholesterol/HDL Ratio (test code = 9830-1) 3.9 3.9-4.7 [facility] IrvingTriglycerides Jrwbd0052-56-18 12:32:00* Test Item Value Reference Range Interpretation Comments Triglycerides Level (test code = 2571-8) 70 0-149 [facility] IrvingCholesterol Ziggo7468-57-33 12:32:00* Test Item Value Reference Range Interpretation Comments Cholesterol Level (test code = 2093-3) 140 0-199 Less than 200 mg/dL Low Oaev101 - 239 mg/dL Borderline Mrvb687 m g/dl and greater High Risk [facility] IrvingLDL Oiphlluudby4091-50-94 12:32:00* Test Item Value Reference Range Interpretation Comments LDL Cholesterol (test code = 2089-1) 90 60-130 [facility] Txknnerkqoz4086-13-48 12:32:00* Test Item Value Reference Range Interpretation Comments HDL Cholesterol (test code = 2085-9) 36 40-60 L [facility] IrvingCholesterol/HDL Revyg6385-19-60 12:32:00 * Test Item Value Reference Range Interpretation Comments Cholesterol/HDL Ratio (test code = 9830-1) 3.9 3.9-4.7 [facility] IrvingTriglycerides Gleie8252-44-52 12:32:00* Test Item Value Reference Range Interpretation Comments Triglycerides Level (test code = 2571-8) 70 0-149 [facility] IrvingCholesterol Bkfgc0661-18-73 12:32:00* Test Item Value Reference Range Interpretation Comments Cholesterol Level (test code = 2093-3) 140 0-199 Less than 200 mg/dL Low Gamh260 - 239 mg/dL Borderline Rxan973 m g/dl and greater High Risk [facility] IrvingLDL Ketutuneond0528-81-37 12:32:00* Test Item Value Reference Range Interpretation Comments LDL Cholesterol (test code = 2089-1) 90 60-130 [facility] Kwnmdzcplfq6172-05-46 12:32:00* Test Item Value Reference Range Interpretation Comments HDL Cholesterol (test code = 2085-9) 36 40-60 L [facility] IrvingCholesterol/HDL Dyyuh7579-12-24 12:32:00 * Test Item Value Reference Range Interpretation Comments Cholesterol/HDL Ratio (test code = 9830-1) 3.9 3.9-4.7 [facility] IrvingTriglycerides Iygwe4788-85-94 12:32:00* Test Item Value Reference Range Interpretation Comments Triglycerides Level (test code = 2571-8) 70 0-149 [facility] IrvingCholesterol Jqxnc3622-66-36 12:32:00* Test Item Value Reference Range Interpretation Comments Cholesterol Level (test code = 2093-3) 140 0-199 Less than 200 mg/dL Low Qdwp495 - 239 mg/dL Borderline Oevk257 m g/dl and greater High Risk [facility] IrvingLDL Bfnfxzidjfv7011-83-62 12:32:00* Test Item Value Reference Range Interpretation Comments LDL Cholesterol (test code = 2089-1) 90 60-130 [facility] Enmcatdhrcb9086-40-92 12:32:00* Test Item Value Reference Range Interpretation Comments HDL Cholesterol (test code = 2085-9) 36 40-60 L [facility] IrvingCholesterol/HDL Phijv6394-51-74 12:32:00 * Test Item Value Reference Range Interpretation Comments Cholesterol/HDL Ratio (test code = 9830-1) 3.9 3.9-4.7 [facility] IrvingTriglycerides Vxiru0158-77-84 12:32:00* Test Item Value Reference Range Interpretation Comments Triglycerides Level (test code = 2571-8) 70 0-149 [facility] IrvingCholesterol Gkcqw2837-27-46 12:32:00* Test Item Value Reference Range Interpretation Comments Cholesterol Level (test code = 2093-3) 140 0-199 Less than 200 mg/dL Low Vogv722 - 239 mg/dL Borderline Fkfv031 m g/dl and greater High Risk [facility] IrvingLDL Mpykulxlnfm6309-59-30 12:32:00* Test Item Value Reference Range Interpretation Comments LDL Cholesterol (test code = 2089-1) 90 60-130 [facility] Pcrrsgcekks2071-87-13 12:32:00* Test Item Value Reference Range Interpretation Comments HDL Cholesterol (test code = 2085-9) 36 40-60 L [facility] IrvingCholesterol/HDL Lihyd7430-64-64 12:32:00 * Test Item Value Reference Range Interpretation Comments Cholesterol/HDL Ratio (test code = 9830-1) 3.9 3.9-4.7 [facility] IrvingTriglycerides Czttj8778-79-00 12:32:00* Test Item Value Reference Range Interpretation Comments Triglycerides Level (test code = 2571-8) 70 0-149 [facility] IrvingCholesterol Moabf0800-76-56 12:32:00* Test Item Value Reference Range Interpretation Comments Cholesterol Level (test code = 2093-3) 140 0-199 Less than 200 mg/dL Low Goqo880 - 239 mg/dL Borderline Ygms985 m g/dl and greater High Risk [facility] IrvingLDL Foqcstsrxdy5019-73-88 12:32:00* Test Item Value Reference Range Interpretation Comments LDL Cholesterol (test code = 2089-1) 90 60-130 [facility] IrvingHDL Qaxkpdvodqg6891-63-01 12:32:00* Test Item Value Reference Range Interpretation Comments HDL Cholesterol (test code = 2085-9) 36 40-60 L [facility] IrvingCholesterol/HDL Ghdcw9419-53-80 12:32:00 * Test Item Value Reference Range Interpretation Comments Cholesterol/HDL Ratio (test code = 9830-1) 3.9 3.9-4.7 [facility] IrvingTriglycerides Mjsez8994-32-51 12:32:00* Test Item Value Reference Range Interpretation Comments Triglycerides Level (test code = 2571-8) 70 0-149 [facility] IrvingCholesterol Wzeel4495-35-89 12:32:00* Test Item Value Reference Range Interpretation Comments Cholesterol Level (test code = 2093-3) 140 0-199 Less than 200 mg/dL Low Ywwz161 - 239 mg/dL Borderline Fzka258 m g/dl and greater High Risk [facility] IrvingLDL Ofztopopmih6141-63-38 12:32:00* Test Item Value Reference Range Interpretation Comments LDL Cholesterol (test code = 2089-1) 90 60-130 [facility] IrvingHDL Umhieeuhopt9047-78-72 12:32:00* Test Item Value Reference Range Interpretation Comments HDL Cholesterol (test code = 2085-9) 36 40-60 L [facility] IrvingCholesterol/HDL Uqqvc0874-28-80 12:32:00 * Test Item Value Reference Range Interpretation Comments Cholesterol/HDL Ratio (test code = 9830-1) 3.9 3.9-4.7 [facility] IrvingActivated Partial Thromboplast Time 2017-11-30 12:23:00* Test Item Value Reference Range Interpretation Comments Activated Partial Thromboplast Time (test code = 80400-9) 51.4 23.8-35.5 H [facility] IrvingActivated Partial Thromboplast Time 2017-11-30 12:23:00* Test Item Value Reference Range Interpretation Comments Activated Partial Thromboplast Time (test code = 25449-1) 51.4 23.8-35.5 [facility] - Treadmill [id number] 15:10:00 [facility] [address] [address] Patient Name : ELVIS MEDELLIN MR #: [id number] : 1940 Age/Sex: 77/M Adm Physician : RAJINDER GAMA MD Admit Date : Location : [place] Room/Bed : REPORT: Cardiology Report DATE OF STUD Y: November 22, 2017 NUCLEAR GATED MYOCARDIAL PERFUSION SCAN Nuclear gat ed myocardial perfusion scan performed as per protocol at nuclear medicine la b at [facility]. The stress test is supervised by Dr. Rajinder Gama. I read only the nuclear part of [...] for this nuclear medicine interpretation consultation. Job#: [id number] EV Signature Date Dictated By: MATTHEW LAUREN MD Transcribed By: ALICIA on 11/22/17 <Electronically signed by MATTHEW LAUREN MD><<Signature on File>>11/23/17 1412 COPY TO: Creatine [id number] 03:30:00* Test Item Value Reference Range Interpretation Comments Creatine Kinase (test code = 2157-6) 169 30-200 [facility] Kinase [id number] 03:30:00* Test Item Value Reference Range Interpretation Comments Creatine Kinase MB (test code = 22633-1) 4.60 0-5.0 [facility] IrvingTroponin [id number] 03:30:00* Test Item Value Reference Range Interpretation Comments Troponin I (test code = FIH5471) -0.001 0-0.300 [facility] [id number] 01:01:00* Test Item Value Reference Range Interpretation Comments Sodium Level (test code = 2951-2) 142 136-145 [facility] IrvingPotassium Fbcwp2855-08-12 01:01:00* Test Item Value Reference Range Interpretation Comments Potassium Level (test code = 2823-3) 4.5 3.5-5.1 [facility] IrvingChloride [id number] 01:01:00* Test Item Value Reference Range Interpretation Comments Chloride Level (test code = 2075-0) 103 98-107 [facility] IrvingCarbon Dioxide Nxqbf2979-39-10 01:01:00* Test Item Value Reference Range Interpretation Comments Carbon Dioxide Level (test code = 2028-9) 30 22-29 H [facility] IrvingAnion [id number] 01:01:00* Test Item Value Reference Range Interpretation Comments Anion Gap (test code = 04928-8) 13.5 8-16 [facility] IrvingBlood Urea Kdnmjmlh4226-86-81 01:01:00* Test Item Value Reference Range Interpretation Comments Blood Urea Nitrogen (test code = 3094-0) 19 7-26 [facility] IrvingCreatinine2018-04-23 01:01:00* Test Item Value Reference Range Interpretation Comments Creatinine (test code = 2160-0) 1.25 0.72-1.25 [facility] IrvingBUN/Creatinine Ggwjs8356-62-77 01:01:00* Test Item Value Reference Range Interpretation Comments BUN/Creatinine Ratio (test code = 3097-3) 15 6-25 [facility] IrvingEstimat Glomerular Filtration Rate 2017-08-28 01:01:00* Test Item Value Reference Range Interpretation Comments Estimat Glomerular Filtration Rate (test code = 99684-1) 56 >60 L Ranges were taken from the National Kidney Disease Education Program and the [facility] Kidney Foundation literature.Reference ranges:60 or greater: Qxnvkz85-11 ( for 3 consecutive months): Chronic kidney disease 15 or less: Kidney failureBaylor Scott & [facility] – IrvingGlucose Nvpxy6979-28-82 01:01:00* Test Item Value Reference Range Interpretation Comments Glucose Level (test code = CNX3027) 126 74-118 H [facility] IrvingCalcium Wzteq3483-40-83 01:01:00* Test Item Value Reference Range Interpretation Comments Calcium Level (test code = 30631-7) 9.6 8.4-10.2 [facility] IrvingTotal Dueukahec5889-98-19 01:01:00* Test Item Value Reference Range Interpretation Comments Total Bilirubin (test code = 1975-2) 0.4 0.2-1.2 [facility] IrvingAspartate Amino Transf (AST/SGOT) 2017-08-28 01:01:00* Test Item Value Reference Range Interpretation Comments Aspartate Amino Transf (AST/SGOT) (test code = Aspartate Amino Transf (AST/SGOT)) 23 5-34 [facility] IrvingAlanine Aminotransferase (ALT/SGPT) 2017-08-28 01:01:00* Test Item Value Reference Range Interpretation Comments Alanine Aminotransferase (ALT/SGPT) (test code = 1742-6) 22 0-55 [facility] IrvingTotal Bxpwyjy4166-18-60 01:01:00* Test Item Value Reference Range Interpretation Comments Total Protein (test code = 2885-2) 7.0 6.5-8.1 [facility] IrvingAlbumin2018-04-23 01:01:00* Test Item Value Reference Range Interpretation Comments Albumin (test code = 1751-7) 4.0 3.5-5.0 [facility] IrvingGlobulin2018-04-23 01:01:00* Test Item Value Reference Range Interpretation Comments Globulin (test code = 67013-7) 3.0 2.3-3.5 [facility] IrvingAlbumin/Globulin Wlzps9013-74-67 01:01:00 * Test Item Value Reference Range Interpretation Comments Albumin/Globulin Ratio (test code = 1759-0) 1.3 0.8-2.0 [facility] IrvingAlkaline Xojfuwgwphb8439-94-90 01:01:00* Test Item Value Reference Range Interpretation Comments Alkaline Phosphatase (test code = 6768-6) 76 40-150 [facility] IrvingUrine Ejmpn6455-30-10 00:31:00* Test Item Value Reference Range Interpretation Comments Urine Color (test code = 5778-6) YELLOW YELLOW [facility] IrvingUrine Kwrmxgr7771-05-94 00:31:00* Test Item Value Reference Range Interpretation Comments Urine Clarity (test code = 60136-0) CLEAR CLEAR [facility] IrvingUrine Specific Ppzcigl1736-20-14 00:31:00 * Test Item Value Reference Range Interpretation Comments Urine Specific Finley (test code = 5811-5) 1.015 1.010-1.02 5 [facility] IrvingUrine [id number] 00:31:00* Test Item Value Reference Range Interpretation Comments Urine pH (test code = 11488-0) 7 5-7 [facility] IrvingUrine Leukocyte Zotgzpxr1580-31-03 00:31:00* Test Item Value Reference Range Interpretation Comments Urine Leukocyte Esterase (test code = 5799-2) NEGATIVE NEGATIVE [facility] IrvingUrine Fkswdii1181-66-23 00:31:00* Test Item Value Reference Range Interpretation Comments Urine Nitrite (test code = 72485-2) NEGATIVE NEGATIVE [facility] IrvingUrine Cjvpwob2975-20-05 00:31:00* Test Item Value Reference Range Interpretation Comments Urine Protein (test code = 5804-0) TRACE NEGATIVE H [facility] IrvingUrine Glucose (UA)2017-08-28 00:31:00* Test Item Value Reference Range Interpretation Comments Urine Glucose (UA) (test code = 2349-9) NEGATIVE NEGATIVE [facility] IrvingUrine Eaovxxa4350-89-66 00:31:00* Test Item Value Reference Range Interpretation Comments Urine Ketones (test code = 83592-8) NEGATIVE NEGATIVE [facility] IrvingUrine Dtutrarxujyh0682-53-29 00:31:00* Test Item Value Reference Range Interpretation Comments Urine Urobilinogen (test code = 76718-5) 0.2 0.2-1 [facility] IrvingUrine Rsakszgqx0207-36-78 00:31:00* Test Item Value Reference Range Interpretation Comments Urine Bilirubin (test code = 1978-6) NEGATIVE NEGATIVE [facility] IrvingUrine Govam3698-47-40 00:31:00* Test Item Value Reference Range Interpretation Comments Urine Blood (test code = 19071-3) TRACE NEGATIVE H [facility] IrvingUrine HYS6981-04-26 00:31:00* Test Item Value Reference Range Interpretation Comments Urine WBC (test code = 5821-4) 0-5 0-5 [facility] IrvingUrine [id number] 00:31:00* Test Item Value Reference Range Interpretation Comments Urine RBC (test code = 35835-3) 0-5 0-5 [facility] IrvingUrine Ukyxmsfs8087-50-25 00:31:00* Test Item Value Reference Range Interpretation Comments Urine Bacteria (test code = 80222-6) NONE NONE [facility] IrvingUrine Epithelial Kmiyi0254-00-78 00:31:00 * Test Item Value Reference Range Interpretation Comments Urine Epithelial Cells (test code = 91284-4) FEW NONE [facility] IrvingWhite Blood Gnhgr6730-22-03 00:24:00* Test Item Value Reference Range Interpretation Comments White Blood Count (test code = 6690-2) 4.96 4.8-10.8 [facility] IrvingRed Blood Exhlk8266-08-45 00:24:00* Test Item Value Reference Range Interpretation Comments Red Blood Count (test code = 789-8) 4.73 4.3-5.7 [facility] IrvingHemoglobin2018-04-23 00:24:00* Test Item Value Reference Range Interpretation Comments Hemoglobin (test code = 71718-4) 13.6 14.0-18.0 L [facility] IrvingHematocrit2018-04-23 00:24:00* Test Item Value Reference Range Interpretation Comments Hematocrit (test code = 4544-3) 41.5 38.2-49.6 [facility] IrvingMean Corpuscular Eaueby5052-95-92 00:24:00* Test Item Value Reference Range Interpretation Comments Mean Corpuscular Volume (test code = 787-2) 87.7 81-99 [facility] IrvingMean Corpuscular Gcypazoojq6398-77-68 00:24:00* Test Item Value Reference Range Interpretation Comments Mean Corpuscular Hemoglobin (test code = 785-6) 28.8 28-32 [facility] IrvingMean Corpuscular Hemoglobin Concent 2017-08-28 00:24:00* Test Item Value Reference Range Interpretation Comments Mean Corpuscular Hemoglobin Concent (test code = 786-4) 32.8 31-35 [facility] IrvingRed Cell Distribution Kkzcu2335-77-18 00:24:00* Test Item Value Reference Range Interpretation Comments Red Cell Distribution Width (test code = 06945-6) 14.3 11.7 -14.4 [facility] IrvingPlatelet Golje9697-83-03 00:24:00* Test Item Value Reference Range Interpretation Comments Platelet Count (test code = 777-3) 161 140-360 [facility] IrvingNeutrophils (%) (Auto)2017-08-28 00:24:00 * Test Item Value Reference Range Interpretation Comments Neutrophils (%) (Auto) (test code = 92283-2) 57.8 38.7-80.0 [facility] IrvingLymphocytes (%) (Auto)2017-08-28 00:24:00 * Test Item Value Reference Range Interpretation Comments Lymphocytes (%) (Auto) (test code = 736-9) 32.7 18.0-39.1 [facility] IrvingMonocytes (%) (Auto)2017-08-28 00:24:00* Test Item Value Reference Range Interpretation Comments Monocytes (%) (Auto) (test code = 5905-5) 7.5 4.4-11.3 [facility] IrvingEosinophils (%) (Auto)2017-08-28 00:24:00 * Test Item Value Reference Range Interpretation Comments Eosinophils (%) (Auto) (test code = 713-8) 1.0 0.0-6.0 [facility] IrvingBasophils (%) (Auto)2017-08-28 00:24:00* Test Item Value Reference Range Interpretation Comments Basophils (%) (Auto) (test code = 706-2) 0.8 0.0-1.0 [facility] IrvingIM GRANULOCYTES %2017-08-28 00:24:00* Test Item Value Reference Range Interpretation Comments IM GRANULOCYTES % (test code = IM GRANULOCYTES %) 0.2 0.0- 1.0 [facility] IrvingNeutrophils # (Auto)2017-08-28 00:24:00* Test Item Value Reference Range Interpretation Comments Neutrophils # (Auto) (test code = 751-8) 2.9 2.1-6.9 [facility] IrvingLymphocytes # (Auto)2017-08-28 00:24:00* Test Item Value Reference Range Interpretation Comments Lymphocytes # (Auto) (test code = 30573-8) 1.6 1.0-3.2 [facility] IrvingMonocytes # (Auto)2017-08-28 00:24:00* Test Item Value Reference Range Interpretation Comments Monocytes # (Auto) (test code = 742-7) 0.4 0.2-0.8 [facility] IrvingEosinophils # (Auto)2017-08-28 00:24:00* Test Item Value Reference Range Interpretation Comments Eosinophils # (Auto) (test code = 711-2) 0.1 0.0-0.4 [facility] IrvingBasophils # (Auto)2017-08-28 00:24:00* Test Item Value Reference Range Interpretation Comments Basophils # (Auto) (test code = 704-7) 0.0 0.0-0.1 [facility] IrvingAbsolute Immature Granulocyte (auto 2017-08-28 00:24:00* Test Item Value Reference Range Interpretation Comments Absolute Immature Granulocyte (auto (jacqueline t code = Absolute Immature Granulocyte (auto) 0.01 0-0.1 [facility] IrvingProthrombin [id number] 13:00:00* Test Item Value Reference Range Interpretation Comments Prothrombin Time (test code = 5902-2) 17.6 11.9-14.5 H [facility] IrvingProthromb Time International Ratio 2017-03-22 13:00:00* Test Item Value Reference Range Interpretation Comments Prothromb Time International Ratio (test code = 6301-6) 1.37 Oral Anticoagulant Therapy INR Values:1. Low Intensity Therapy 1.5 - 2.02 . Moderate Intensity Therapy 2.0 - 3.03. High Intensity Therapy(1) 2.5 - 3. 54. High Intensity Therapy(2) 3.0 - 4.05. Panic Value INR > 5.0 [facility] IrvingActivated Partial Thromboplast Time 2017-03-22 13:00:00* Test Item Value Reference Range Interpretation Comments Activated Partial Thromboplast Time (test code = 68384-5) 49.4 23.8-35.5 H [facility] IrvingPOCT-GLUCOSE [id number] 07:31:00* Test Item Value Reference Range Interpretation Comments POC-GLUCOSE METER (BEAKER) (test code = 1538) 170 mg/dL 70-110 H TESTED AT [facility] [address] [facility] [address] CBC (HEMOGRAM ONLY)2016-08-25 05:18:00* Test Item Value [...] = 413) 0 /100 WBC 0 -0 0.38DVH6258-56-75 05:13:00* Test Item Value Reference Range Interpretation Comments BLOOD UREA NITROGEN (BEAKER) (test code = 354) 18 mg/dL 7-21 JSPSDEYIYQNH2236-38-18 05:13:00* Test Item Value Reference Range Interpretation Comments SODIUM (BEAKER) (test code = 381) 137 meq/L 136-145 POTASSIUM (BEAKER) (test code = 379) 4.3 meq/L 3.5-5.1 Specimen slightly hemolyzed CHLORIDE (BEAKER) (test code = 382) 107 meq/L 98-107 CO2 (BEAKER) (test code = 355) 22 meq/L 22-29 [id number] 05:13:00* Test Item Value Reference Range Interpretation Comments CREATININE (BEAKER) (test code = 358) 1.07 mg/dL 0.57-1.25 Specimen slightly hemolyzed EGFR (BEAKER) (test code = 1092) 68 mL/min/1.73 sq m ESTIMATED GFR IS NOT ACCURATE CREATININE CLEARANCE IN PREDICTING GLOMERULAR FILTRATION RATE. ESTIMATED GFR IS NOT APPLICABLE FOR DIALYSIS PATIENTS. POCT-GLUCOSE [id number] 21:36:00* Test Item Value Reference Range Interpretation Comments POC-GLUCOSE METER (BEAKER) (test code = 1538) 127 mg/dL 70-110 H TESTED AT [place] [address] POCT-GLUCOSE [id number] 13:44:00* Test Item Value Reference Range Interpretation Comments POC-GLUCOSE METER (BEAKER) (test code = 1538) 142 mg/dL 70-110 H TESTED AT [place] [address] [id number]-[id number] 11:45:00* Test Item Value Reference Range Interpretation Comments ACTIVATED CLOTTING TIME (BEAKER) (test code = 441) 137 sec TESTED AT [place] [address] WGXW-[id number] 10:38:00* Test Item Value Reference Range Interpretation Comments ACTIVATED CLOTTING TIME (BEAKER) (test code = 441) 358 sec TESTED AT [place] [address] VSQM-[id number] 10:10:00* Test Item Value Reference Range Interpretation Comments ACTIVATED CLOTTING TIME (BEAKER) (test code = 441) 379 sec TESTED AT [place] [address] DVVD-[id number] 09:56:00* Test Item Value Reference Range Interpretation Comments ACTIVATED CLOTTING TIME (BEAKER) (test code = 441) 296 sec TESTED AT [place] [address] [id number] 09:37:00* Test Item Value Reference Range Interpretation Comments ACTIVATED CLOTTING TIME (BEAKER) (test code = 441) 296 sec TESTED AT [place] [address] GWGF-[id number] 09:10:00* Test Item Value Reference Range Interpretation Comments POC-CREATININE (BEAKER) (test code = 1859) 1.1 mg/dL 0.6-1.3 TESTED AT [place] [address] POC-EGFR (BEAKER) (test code = 1860) 65 mL/min/1.73M2 [id number] 08:34:00* Test Item Value Reference Range Interpretation Comments PARTIAL THROMBOPLASTIN TIME (BEAKER) (test code = 760) 59.3 seconds 22.5-36.0 H PROTHROMBIN TIME/[id number] 08:32:00* Test Item Value Reference Range Interpretation [...] pat ients with mechanical heart valves.BASIC METABOLIC [id number] 08:26:00* Test Item Value Reference Range Interpretation [...] /100 WBC 0 -0 0.00CHEST 2 VIEWS [place] [address] Patient Name: ELVIS MEDELLIN MR #: [id number] : 1940 Age/Sex: 77/M Req #: [id number] Adm Physician: Ordered by: GREGORY LIANG MD Report #: [id number] Location: ER Room/Bed: Procedure: [id number] DX/CHEST 2 VIEWS Exam Date: 0 08/28/17 [...] RONALD Merchant on 08/28/1741 COPY TO: GREGORY LIANG MD
--- NOTE | 2020-01-12 15:25 | NUR ---
consent signed and placed in pt's chart
--- NOTE | 2020-01-12 16:14 | NUR ---
as per lab, blood products ready for patient
[2020-01-12] MEDS ORDERED: ACETAMINOPHEN 1000 MG/100 ML 100 ML IV ONE (18:02)
[2020-01-12] MEDS ORDERED: BUPIVACAINE 0.25%/EPI 30ML SDV INJ ONE (18:12)
[2020-01-12] MEDS ORDERED: FENTANYL CITRATE/PF 100MCG/2 ML INJ ONE (18:33)
--- NOTE | 2020-01-12 20:25 | NUR ---
PATIENT ARRIVED TO THE UNIT VIA STRETCHER FROM PACU. RECEIVED REPORT FROM LIZETTE PACU NURSE. PATIENT IS A LITTLE CONFUSED. PATIENT IS AMBULATING WITH ASSISTANCE. PATIENT IS HARD OF HEARING. , MARITA WAS CALLED AND TOLD HOW TO CONTACT THE PATIENT. CALL LIGHT WITHIN REACH. IV FLUIDS AND IV ARE GOOD. PATIENT IN NO PAIN OR DISTRESS.
[2020-01-12 20:30] VITALS: BP 129/70
[2020-01-12 20:59] VITALS: BP 129/70
--- NOTE | 2020-01-12 21:32 | Consultation ---
DATE OF CONSULTATION: 01/12/2020 CHIEF COMPLAINT: Abdominal pain. HISTORY OF PRESENT ILLNESS: The patient is a 79-year-old male with 1-day history of pain in the lower abdomen with nausea, no vomiting. The patient has known left inguinal hernia for many months, which has been incarcerated today that is not reducible. PAST MEDICAL HISTORY: Significant for coronary artery disease, atrial fibrillation, and chronic anemia. ALLERGIES: HE IS ALLERGIC TO CODEINE. SOCIAL HABITS: No smoking or alcohol abuse. REVIEW OF SYSTEMS: No chest pain, shortness of breath, cough, or fever. PHYSICAL EXAMINATION: VITAL SIGNS: Stable. He is afebrile. He is awake, alert, in moderate discomfort. HEENT: Sclerae nonicteric. NECK: Supple. LUNGS: Clear. HEART: Regular rate and rhythm. ABDOMEN: Mildly distended with a large incarcerated left inguinal hernia, was not reducible, which is also tender to touch. EXTREMITIES: No cyanosis or edema. LABORATORY DATA: White cell count 6, hemoglobin of 13, and platelet count 143. Creatinine of 1.6. INR 1.2 with PT of 16. IMAGING DATA: CT of the abdomen show a large left inguinal hernia containing loops of small bowel, possible ischemia. Chest x-ray, no acute findings. ASSESSMENT: Incarcerated, possible strangulated left inguinal hernia. PLAN: Emergent repair of left inguinal hernia with possible bowel resection. MD JARET Salguero/MODL /[id number]
[2020-01-12] MEDS: CEFAZOLIN SOD 1 GM/NS 50ML 50 ML IV SCH (22:00)
[2020-01-13] VITALS (8 sets, daily range): BP systolic 121–140; BP diastolic 67–97
--- NOTE | 2020-01-13 00:53 | Operative Report ---
DATE OF PROCEDURE: 01/12/2020 SURGEON: Alex Gaitan MD PREOPERATIVE DIAGNOSIS: Incarcerated left inguinal hernia. POSTOPERATIVE DIAGNOSIS: Incarcerated left inguinal hernia. OPERATIVE PROCEDURE: Repair incarcerated left inguinal hernia with mesh. ANESTHESIA: General, Dr. Wynn. INDICATION: The patient is a 79-year-old male with 1-day history of abdominal pain and nausea with CT scan showing incarcerated left inguinal hernia with bowel obstruction. The patient consented for left inguinal hernia repair with mesh with possible bowel resection. PROCEDURE FINDING: Incarcerated left inguinal hernia. DESCRIPTION OF PROCEDURE: The patient was brought to the OR and intubated. Abdomen prepped with alcohol and draped in a sterile fashion. The left inguinal incision was made extending down to the fascia of the external oblique, which is opened towards the external ring. The neck of the hernia which is at the external ring is divided allowing reduction of the small bowel from the scrotum into the peritoneal cavity. We then proceeded to dissect out the spermatic cord and the sac was dissected off the cord to the level of the iliac crest. We then developed the preperitoneal space to accommodate a medium-sized Prolene hernia system which is anchored to the Hank ligament with a 2-0 Prolene stitch. With the mesh in place, we proceeded to close the transversalis fascia with interrupted 2-0 Vicryl tacking the mesh to that layer. External oblique was then repaired using the 2-0 Prolene stitch re-fashion the external ring. The external oblique has been repaired and we proceeded to approximate the Sal with interrupted 3-0 Vicryl and the skin with isabel. The patient was extubated and transported to recovery room. BLOOD LOSS: 50 mL. Alex Gaitan MD DNL/MODL /[id number]
[2020-01-13] MEDS ORDERED: ATORVASTATIN CA20 MG PO (01:53)
[2020-01-13] MEDS ORDERED: METOPROLOL SUCC25 MG PO (01:53)
[2020-01-13] MEDS ORDERED: METFORMIN HCL500 MG PO (01:53)
[2020-01-13] MEDS ORDERED: DIGOXIN125 MCG PO (01:53)
[2020-01-13] MEDS ORDERED: BUSPIRONE HCL5 MG PO (01:53)
[2020-01-13 02:19] LABS: CREATINE KINASE MB 2.9 ng/mL (0-5.0)
[2020-01-13] MEDS: CEFAZOLIN SOD 1 GM/NS 50ML 50 ML IV SCH ×3 (05:09→20:36)
[2020-01-13 05:55] LABS: BASOPHILS % 0.3 % (0.0-1.0); EOSINOPHILS % 0.1 % (0.0-6.0); HEMATOCRIT 34.9 % (38.2-49.6); HEMOGLOBIN 11.1 g/dL (14.0-18.0); LYMPHOCYTES # (AUTO) 0.8 (1.0-3.2); LYMPHOCYTES % 10.9 % (18.0-39.1); MEAN CORPUSCULAR HEMOGLOBIN 28.2 pg (28-32); MEAN CORPUSCULAR HGB CONC 31.8 g/dL (31-35); MEAN CORPUSCULAR VOLUME 88.8 fL (81-99); MONOCYTES # (AUTO) 0.6 (0.2-0.8); MONOCYTES % 7.9 % (4.4-11.3); NEUTROPHILS # (AUTO) 5.9 (2.1-6.9); NEUTROPHILS % 80.5 % (38.7-80.0); PLATELET COUNT 101 x10e3/uL (140-360); RED BLOOD COUNT 3.93 x10e6/uL (4.3-5.7); RED CELL DISTRIBUTION WIDTH 16.6 % (11.7-14.4)
[2020-01-13 06:04] LABS: ALBUMIN 3.8 g/dL (3.5-5.0); ALBUMIN/GLOBULIN RATIO 2.1 (0.8-2.0); ANION GAP 15.7 mmol/L (8-16); CALCIUM 8.1 mg/dL (8.4-10.2); CREATININE, SERUM 1.27 mg/dL (0.72-1.25); POTASSIUM 4.7 mmol/L (3.5-5.1)
[2020-01-13] MEDS: PIPER-TAZ 3.375 GM / NS 50ML IV SCH ×3 (06:10→22:26)
--- NOTE | 2020-01-13 07:09 | NUR ---
GAVE BEDSIDE SHIFT REPORT TO ONCOMING NURSE. CALL LIGHT WITHIN REACH. PATIENT IN BED. HOURLY ROUNDING PERFORMED.
[2020-01-13 07:59] LABS: CREATINE KINASE MB 3.2 ng/mL (0-5.0)
--- NOTE | 2020-01-13 09:34 | History and Physical ---
REASON FOR ADMISSION: The patient is a 79-year-old male, who came in with severe abdominal pain. HISTORY OF PRESENT ILLNESS: Elvis Medellin is a 79-year-old male with a history of atrial fibrillation, on anticoagulation, was in his usual state of health until about last night. Last morning, the patient started cutting his yard and riding a car conditioner. The patient felt sudden abdominal pain and was seen in the ER, was found to have an incarcerated hernia. The patient underwent surgery yesterday, and here he is feeling better today except confusion. PAST MEDICAL HISTORY: History of atrial fibrillation, history of congestive heart failure, history of hypertension, history of diabetes mellitus, history of benign prostatic hypertrophy, and history of fatty liver. PAST SURGICAL HISTORY: History of CABG, history of appendectomy, history of AICD placement, history of cholecystectomy, and history of multiple stents in the past. The patient also has ablation for atrial fibrillation x2. SOCIAL HISTORY: No EtOH. No IV drug abuse. Lives with , who was recently admitted to the hospital for an acute DVT and is taking care of the . The patient has also had a TURP for benign prostatic hypertrophy. FAMILY HISTORY: Positive for hypertension. ALLERGIES: ALLERGIC TO CODEINE. REVIEW OF SYSTEMS: Negative for chest pain. No shortness of breath. No nausea. No vomiting. No diarrhea. Positive for constipation. No rectal bleeding. No diplopia. No blurry vision. The patient is slightly confused after surgery today from anesthesia. PHYSICAL EXAMINATION: VITAL SIGNS: Temperature is 97.1, pulse of 76, respirations of 18, blood pressure is 124/75, pulse oximetry of 98%, and O2 on 2 L of oxygen. LABORATORY VALUES: Initially, the patient came in with white count of 6.73, hemoglobin 13.6, hematocrit of 43.3, and RDW 16.7. Chemistries, sodium 137, potassium 4.3, BUN 23, creatinine of 1.62, and total bilirubin was 1.6. BNP was 875.9. Lipase is 81. Today's BUN and creatinine 18 and 1.27, calcium of 8.1, total bilirubin of 1.5. Troponins are pending, but x2 has been negative. Serology of coronavirus is nondetected. Urine cultures are pending. RADIOGRAPHIC DATA: CT scan of the abdomen showed initially when he came in a large left hernia containing loop of small bowel, wall thickening of the bowel in the hernia sac, ischemia not excluded. Chest x-ray, no acute abnormalities, mild cardiomegaly. ASSESSMENT AND PLAN: 1. Mr. Elvis Medellin with incarcerated inguinal hernia, status post surgical repair by Dr. Gaitan. The patient has been off his anticoagulation. The surgery is immediate. We will continue holding his anticoagulation, which includes Eliquis and Plavix. 2. History of hypertension, hyperlipidemia, and coronary artery disease. Continue with medications. 3. Congestive heart failure. We will come back fluids to 75 mL an hour for today. 4. Monitor his PT, PTT, and INR on a regular basis and H and H every 12 hours to maintain his H and H. Further recommendation per clinical course. We will continue to monitor the patient. The patient is status post surgery, but doing better. We will continue monitoring his progress. MD JAS Wallace/MODL /[id number]
--- NOTE | 2020-01-13 15:42 | NUR ---
Patient refuses to wear and keep on telemetry and continuous pulse ox. Brought back to tele so that the box would not get lost. aware.
--- NOTE | 2020-01-13 19:00 | NUR ---
RECEIVED PATIENT IN BEDSIDE SHIFT REPORT. PATIENT ORIENTED TO SELF AND SITUATION, NOT TIME AND PLACE. ATTEMPTED TO REORIENTED PATIENT. DRESSING TO L LOWER ABD C/D/I. NO PAIN REPORTED. NO S&S OF DISTRESS NOTED. BED ALARM IS ACTIVE. BED LOCKED IN LOWEST POSITION, SIDE RAILS UPX2, CALL LIGHT IN REACH.
[2020-01-13] MEDS ORDERED: SODIUM CHLORIDE 0.9% 1000ML 1,000 ML ONE (20:34)
[2020-01-13] MEDS ORDERED: ATORVASTATIN 20 MG TAB PO SCH (21:00)
[2020-01-14 01:21] VITALS: BP 134/89
[2020-01-14] MEDS: CEFAZOLIN SOD 1 GM/NS 50ML 50 ML IV SCH (05:33)
[2020-01-14 05:36] VITALS: BP 116/69
[2020-01-14] MEDS: PIPER-TAZ 3.375 GM / NS 50ML IV SCH (06:02)
--- NOTE | 2020-01-14 07:37 | Progress Note ---
DATE: SUBJECTIVE: A 79-year-old male, who came in with incarcerated hernia, status post surgery, doing well except for hallucination, which is the patient's baseline in the morning, had some owning. The patient has currently no chest pain, no shortness of breath, and no complaints from nursing staff. OBJECTIVE: VITAL SIGNS: Temperature is 98.6, pulse of 87, respirations of 20, blood pressure is 116/69, pulse oximetry of 99%. HEENT: Normocephalic, atraumatic. No icterus present. CVS: S1 and S2. Irregular. ABDOMEN: Soft, nontender, and nondistended. EXTREMITIES: No clubbing, no cyanosis, no edema. LABORATORY VALUES: From yesterday, hemoglobin of 11.1, hematocrit of 34.9. Chemistry showed sodium of 137, potassium 4.7, creatinine 1.27 and BUN of 18. Troponins have been trended to be negative, fluids were turned off. BNP was 875.9. Serology; coronavirus nondetected. Microbiology; urine culture negative. ASSESSMENT: Elvis [place] with an incarcerated hernia, strangulated, status post surgery, doing well. The patient can be restarted on anticoagulation, history of coronary artery disease, hypertension, hyperlipidemia, and atrial fibrillation and acute on chronic renal failure. The patient can be restart all his home medications. Discharge today. As far as hallucination, this is baseline for the patient, but the patient would do better in the home setting with familiar surroundings, discharge planning. Further recommendation per clinical course. If it is okay with Surgery, the patient can be discharged. MD JAS Wallace/COLETTEL /[id number]
[2020-01-14 07:44] VITALS: BP 122/81
[2020-01-14 07:47] VITALS: BP 122/81
--- NOTE | 2020-01-14 10:25 | NUR ---
IMM EXPLAINED TO PT , SIGNED BY PT AND PLACED IN CHART COPY OF IMM GIVEN TO PT AND PLACED IN CARE TRANSITIONS FOLDER DC HOME TODAY
--- NOTE | 2020-01-14 11:04 | NUR ---
Patient received discharge order from Dr. Dodge once cleared from Dr. Gaitan. Patient and (on phone) were given discharge instructions, prescription from Dr. Gaitan, and education. Patient and verbalized understanding. Patient and was given follow up instructions and verbalized understanding. Patient IV removed at 1045 and covered with a C/D/I dressing. Patient awaiting ride home. No other issues or complaints. Addendum: 01/14/20 at 1126 by Patricia Todd RN Patient wheeled to car at 1115. No other issues or complaints.
[2020-01-14] MEDS ORDERED: ONDANSETRON HCL 4 MG ORAL DISINTEGRATING TAB PO PRN (11:15)
== END 2020-01-14 11:15 | disposition home or self-care (01) | DRG 351 ==
LOC: ER 11:01 → ERHOLD 14:49 → MED/SURG 20:46
PROVIDERS: ADMIT Family Medicine; ATTEND Family Medicine
PROC: 0YU64JZ Supplement Left Inguinal Region with Synthetic Substitute, Percutaneous Endoscopic Approach (ICD-10-PCS; principal; 2020-01-12 17:00)
DX: K40.40 Unilateral inguinal hernia, with gangrene, not specified as recurrent (principal); I48.20 Chronic atrial fibrillation, unspecified; I13.0 Hypertensive heart and chronic kidney disease with heart failure and stage 1 through stage 4 chronic kidney disease, or unspecified chronic kidney disease; I25.10 Atherosclerotic heart disease of native coronary artery without angina pectoris; Z95.1 Presence of aortocoronary bypass graft; Z95.810 Presence of automatic (implantable) cardiac defibrillator; Z95.5 Presence of coronary angioplasty implant and graft; N40.0 Benign prostatic hyperplasia without lower urinary tract symptoms; Z79.01 Long term (current) use of anticoagulants; K76.0 Fatty (change of) liver, not elsewhere classified; Z11.59 Encounter for screening for other viral diseases; N18.9 Chronic kidney disease, unspecified; I50.9 Heart failure, unspecified; E11.22 Type 2 diabetes mellitus with diabetic chronic kidney disease
CPT/HCPCS: 36415; 71045; 74177; 80053; 81001; 82150; 82550; 82553; 82948; 83690; 83735; 83880; 84484; 85025; 85610; 85730; 86850; 86900; 86920; 87086; 93005; 96361; 99284; C1781; J0330; J0500; J0690; J2001; J2270; J2405; J2543; J2710; J3010; J7030; Q9967; U0002

== ENCOUNTER 2020-01-21 13:03 | Inpatient (IN) | payer MEDICARE, BC ==
[~2020-01-21] VITALS: Ht 190.5 cm; Wt 92.6 kg
[~2020-01-21 13:03] MED LIST changes: +ATORVASTATIN CA20 MG PO; +BUSPIRONE HCL5 MG PO
[2020-01-21 13:38] LABS: BASOPHILS % 0.7 % (0.0-1.0); EOSINOPHILS % 0.2 % (0.0-6.0); HEMATOCRIT 35.2 % (38.2-49.6); LYMPHOCYTES # (AUTO) 0.9 (1.0-3.2); LYMPHOCYTES % 16.2 % (18.0-39.1); MEAN CORPUSCULAR HEMOGLOBIN 28.3 pg (28-32); MEAN CORPUSCULAR HGB CONC 31.3 g/dL (31-35); MEAN CORPUSCULAR VOLUME 90.5 fL (81-99); MONOCYTES # (AUTO) 0.4 (0.2-0.8); MONOCYTES % 7.5 % (4.4-11.3); NEUTROPHILS # (AUTO) 4.3 (2.1-6.9); NEUTROPHILS % 74.4 % (38.7-80.0); PLATELET COUNT 164 x10e3/uL (140-360); RED BLOOD COUNT 3.89 x10e6/uL (4.3-5.7); RED CELL DISTRIBUTION WIDTH 17.3 % (11.7-14.4)
[2020-01-21] MEDS ORDERED: ONDANSETRON HCL INJ 2MG/ML 2ML 2 MG/ML VIAL IV PRN (13:45)
[2020-01-21] MEDS ORDERED: SODIUM CHLORIDE 0.9% 1000ML 1,000 ML IV SCH (13:45)
[2020-01-21 13:49] LABS: INR 1.24; PROTHROMBIN TIME 16.2 seconds (11.9-14.5)
[2020-01-21 13:50] LABS: PARTIAL THROMBOPLASTIN TIME 42.8 seconds (23.8-35.5)
[2020-01-21 13:59] LABS: ALANINE AMINOTRANSFERASE 29 IU/L (0-55); ALBUMIN 4.3 g/dL (3.5-5.0); ALKALINE PHOSPHATASE 110 IU/L (40-150); ANION GAP 15.8 mmol/L (8-16); BLOOD UREA NITROGEN 16 mg/dL (7-26); BUN/CREATININE RATIO 15 (6-25); CARBON DIOXIDE 27 mmol/L (22-29); CHLORIDE 101 mmol/L (98-107); CREATININE, SERUM 1.06 mg/dL (0.72-1.25); EST GLOMERULAR FILTRATION RATE > 60 ML/MIN (60-); GLUCOSE 119 mg/dL (74-118); POTASSIUM 3.8 mmol/L (3.5-5.1); SODIUM 140 mmol/L (136-145)
[2020-01-21] MEDS ORDERED: SODIUM CHLORIDE 0.9% 50ML 50 ML ONE (15:33)
[2020-01-21] MEDS ORDERED: IOPAMIDOL 370 MG/ML 200 ML INFUS..BTL INJ ONE (15:33)
[2020-01-21 20:00] VITALS: BP 130/68
[2020-01-21] MEDS ORDERED: ZYRTEC10 M3 (20:46)
[2020-01-21 21:00] VITALS: BP 130/68
[2020-01-21 22:17] LABS: HEMATOCRIT 32.4 % (38.2-49.6); HEMOGLOBIN 10.4 g/dL (14.0-18.0)
[2020-01-21] MEDS: METOPROLOL SUCCINATE 25 MG TAB XL PO SCH (22:29)
[2020-01-21] MEDS: ATORVASTATIN 20 MG TAB PO SCH (22:29)
[2020-01-21] MEDS: FINASTERIDE 5 MG TAB PO SCH (22:29)
[2020-01-22] VITALS (8 sets, daily range): BP systolic 122–139; BP diastolic 65–86
[2020-01-22] MEDS ORDERED: SODIUM CHLORIDE 0.9% 1000ML 1,000 ML ONE (05:32)
[2020-01-22 06:20] LABS: BASOPHILS % 0.9 % (0.0-1.0); EOSINOPHILS % 0.4 % (0.0-6.0); HEMOGLOBIN 10.3 g/dL (14.0-18.0); LYMPHOCYTES # (AUTO) 0.7 (1.0-3.2); LYMPHOCYTES % 15.8 % (18.0-39.1); MEAN CORPUSCULAR HEMOGLOBIN 29.4 pg (28-32); MEAN CORPUSCULAR HGB CONC 32.2 g/dL (31-35); MEAN CORPUSCULAR VOLUME 91.4 fL (81-99); MONOCYTES # (AUTO) 0.4 (0.2-0.8); MONOCYTES % 9.1 % (4.4-11.3); NEUTROPHILS # (AUTO) 3.3 (2.1-6.9); NEUTROPHILS % 72.5 % (38.7-80.0); PLATELET COUNT 123 x10e3/uL (140-360); RED CELL DISTRIBUTION WIDTH 17.6 % (11.7-14.4)
[2020-01-22 06:46] LABS: ALANINE AMINOTRANSFERASE 25 IU/L (0-55); ALBUMIN 3.6 g/dL (3.5-5.0); ALBUMIN/GLOBULIN RATIO 1.8 (0.8-2.0); ALKALINE PHOSPHATASE 80 IU/L (40-150); ANION GAP 12.9 mmol/L (8-16); BLOOD UREA NITROGEN 13 mg/dL (7-26); BUN/CREATININE RATIO 16 (6-25); CALCIUM 8.3 mg/dL (8.4-10.2); CARBON DIOXIDE 26 mmol/L (22-29); CHLORIDE 105 mmol/L (98-107); CREATININE, SERUM 0.81 mg/dL (0.72-1.25); EST GLOMERULAR FILTRATION RATE > 60 ML/MIN (60-); GLUCOSE 90 mg/dL (74-118); POTASSIUM 3.9 mmol/L (3.5-5.1); SODIUM 140 mmol/L (136-145)
[2020-01-22 07:07] LABS: CREATINE KINASE MB 1.4 ng/mL (0-5.0)
[2020-01-22] MEDS: FOLIC ACID 400 MCG PO SCH (09:00)
[2020-01-22] MEDS: FISH OIL PO SCH (09:00)
[2020-01-22] MEDS: DHA PO SCH (09:00)
[2020-01-22] MEDS: EPA PO SCH (09:00)
[2020-01-22] MEDS: UBIDECARENONE 100 MG PO SCH (09:00)
[2020-01-22] MEDS: LORATADINE 10 MG TAB PO SCH (10:01)
[2020-01-22] MEDS: METFORMIN HCL 500 MG TAB PO SCH ×2 (10:01→17:42)
[2020-01-22] MEDS: BUSPIRONE HCL 5 MG TAB PO SCH ×2 (10:01→17:42)
[2020-01-22] MEDS: FUROSEMIDE 20 MG TAB PO SCH (10:02)
[2020-01-22] MEDS: DIGOXIN 0.125 MG TAB PO SCH (10:02)
[2020-01-22] MEDS: CHOLECALCIFEROL 1,000 UNIT TAB PO SCH (10:03)
[2020-01-22] MEDS: METOPROLOL SUCCINATE 25 MG TAB XL PO SCH ×2 (10:03→20:49)
[2020-01-22] MEDS ORDERED: BUPIVACAINE 0.5%/EPI 30 ML SDV INJ ONE (11:58)
[2020-01-22] MEDS ORDERED: TRAMADOL HCL 50 MG TAB PO PRN (13:00)
[2020-01-22] MEDS: CEFAZOLIN SOD 1 GM/NS 50ML 50 ML IV SCH ×2 (14:00→21:25)
[2020-01-22] MEDS ORDERED: FENTANYL CITRATE/PF 100MCG/2 ML INJ ONE (14:17)
[2020-01-22] MEDS ORDERED: CEFAZOLIN SOD 1 GM VIAL ONE (17:42)
[2020-01-22] MEDS ORDERED: SEVOFLURANE INHAL SOLN 250 ML PEN BTL ONE (17:42)
[2020-01-22] MEDS ORDERED: LIDOCAINE HCL 2% LOCAL INJ 5 ML SDV VIAL INJ ONE (17:42)
[2020-01-22] MEDS ORDERED: PROPOFOL IV EMULSION 10 MG/ML 20 ML VIAL ONE (17:42)
[2020-01-22] MEDS ORDERED: ONDANSETRON HCL INJ 2MG/ML 2ML 2 MG/ML VIAL ONE (17:42)
[2020-01-22] MEDS: ATORVASTATIN 20 MG TAB PO SCH (20:49)
[2020-01-22] MEDS: FINASTERIDE 5 MG TAB PO SCH (20:49)
[2020-01-23] VITALS (7 sets, daily range): BP systolic 100–139; BP diastolic 58–90
[2020-01-23] MEDS: CEFAZOLIN SOD 1 GM/NS 50ML 50 ML IV SCH ×3 (06:24→22:12)
[2020-01-23 06:53] LABS: HEMATOCRIT 33.2 % (38.2-49.6); HEMOGLOBIN 10.4 g/dL (14.0-18.0)
[2020-01-23] MEDS ORDERED: SODIUM CHLORIDE 0.9% 250ML 250 ML IV SCH (07:00)
[2020-01-23 07:47] LABS: ALANINE AMINOTRANSFERASE 22 IU/L (0-55); ALBUMIN 3.7 g/dL (3.5-5.0); ALBUMIN/GLOBULIN RATIO 1.9 (0.8-2.0); ALKALINE PHOSPHATASE 76 IU/L (40-150); ANION GAP 14.4 mmol/L (8-16); BLOOD UREA NITROGEN 15 mg/dL (7-26); BUN/CREATININE RATIO 15 (6-25); CALCIUM 8.4 mg/dL (8.4-10.2); CARBON DIOXIDE 27 mmol/L (22-29); CHLORIDE 101 mmol/L (98-107); EST GLOMERULAR FILTRATION RATE > 60 ML/MIN (60-); GLUCOSE 100 mg/dL (74-118); POTASSIUM 4.4 mmol/L (3.5-5.1); SODIUM 138 mmol/L (136-145)
[2020-01-23] MEDS: BUSPIRONE HCL 5 MG TAB PO SCH ×2 (08:31→16:41)
[2020-01-23] MEDS: FUROSEMIDE 20 MG TAB PO SCH (08:32)
[2020-01-23] MEDS: DIGOXIN 0.125 MG TAB PO SCH (08:32)
[2020-01-23] MEDS: METFORMIN HCL 500 MG TAB PO SCH ×2 (08:32→16:41)
[2020-01-23] MEDS: LORATADINE 10 MG TAB PO SCH (08:32)
[2020-01-23] MEDS: METOPROLOL SUCCINATE 25 MG TAB XL PO SCH ×2 (08:33→21:00)
[2020-01-23] MEDS: CHOLECALCIFEROL 1,000 UNIT TAB PO SCH (08:34)
[2020-01-23] MEDS: FISH OIL PO SCH (09:00)
[2020-01-23] MEDS: FOLIC ACID 400 MCG PO SCH (09:00)
[2020-01-23] MEDS ORDERED: CLOPIDOGREL BISULFATE 75 MG TAB PO SCH (09:00)
[2020-01-23] MEDS: DHA PO SCH (09:00)
[2020-01-23] MEDS: UBIDECARENONE 100 MG PO SCH (09:00)
[2020-01-23] MEDS: EPA PO SCH (09:00)
[2020-01-23] MEDS ORDERED: SODIUM CHLORIDE 0.9% 250ML 250 ML ONE (15:14)
[2020-01-23] MEDS: FINASTERIDE 5 MG TAB PO SCH (22:12)
[2020-01-23] MEDS: ATORVASTATIN 20 MG TAB PO SCH (22:12)
[2020-01-24] VITALS: BP 100/76
[2020-01-24 04:00] VITALS: BP 128/63
[2020-01-24 04:57] LABS: BASOPHILS % 0.3 % (0.0-1.0); EOSINOPHILS % 0.6 % (0.0-6.0); HEMOGLOBIN 10.6 g/dL (14.0-18.0); LYMPHOCYTES # (AUTO) 0.9 (1.0-3.2); LYMPHOCYTES % 13.5 % (18.0-39.1); MEAN CORPUSCULAR HEMOGLOBIN 29.7 pg (28-32); MEAN CORPUSCULAR HGB CONC 32.1 g/dL (31-35); MEAN CORPUSCULAR VOLUME 92.4 fL (81-99); MONOCYTES # (AUTO) 0.7 (0.2-0.8); MONOCYTES % 9.5 % (4.4-11.3); NEUTROPHILS # (AUTO) 5.1 (2.1-6.9); NEUTROPHILS % 75.5 % (38.7-80.0); PLATELET COUNT 117 x10e3/uL (140-360); RED BLOOD COUNT 3.57 x10e6/uL (4.3-5.7); RED CELL DISTRIBUTION WIDTH 18.1 % (11.7-14.4)
[2020-01-24] MEDS: CEFAZOLIN SOD 1 GM/NS 50ML 50 ML IV SCH ×3 (05:08→21:27)
[2020-01-24 05:18] LABS: ANION GAP 11.9 mmol/L (8-16); BLOOD UREA NITROGEN 13 mg/dL (7-26); BUN/CREATININE RATIO 14 (6-25); CALCIUM 8.9 mg/dL (8.4-10.2); CARBON DIOXIDE 31 mmol/L (22-29); CHLORIDE 101 mmol/L (98-107); CREATININE, SERUM 0.92 mg/dL (0.72-1.25); EST GLOMERULAR FILTRATION RATE > 60 ML/MIN (60-); GLUCOSE 90 mg/dL (74-118); POTASSIUM 3.9 mmol/L (3.5-5.1); SODIUM 140 mmol/L (136-145)
[2020-01-24] MEDS: EPA PO SCH (07:41)
[2020-01-24] MEDS: FISH OIL PO SCH (07:41)
[2020-01-24] MEDS: DHA PO SCH (07:41)
[2020-01-24] MEDS: FOLIC ACID 400 MCG PO SCH (07:42)
[2020-01-24] MEDS: UBIDECARENONE 100 MG PO SCH (07:43)
[2020-01-24] MEDS: BUSPIRONE HCL 5 MG TAB PO SCH ×2 (08:40→17:12)
[2020-01-24] MEDS: METFORMIN HCL 500 MG TAB PO SCH ×2 (08:40→17:12)
[2020-01-24] MEDS: LORATADINE 10 MG TAB PO SCH (08:40)
[2020-01-24] MEDS: FUROSEMIDE 20 MG TAB PO SCH (08:41)
[2020-01-24] MEDS: CHOLECALCIFEROL 1,000 UNIT TAB PO SCH (08:41)
[2020-01-24] MEDS: DIGOXIN 0.125 MG TAB PO SCH (08:41)
[2020-01-24] MEDS: METOPROLOL SUCCINATE 25 MG TAB XL PO SCH ×2 (08:41→21:27)
[2020-01-24 12:00] VITALS: BP 115/67
[2020-01-24 16:00] VITALS: BP 119/64
[2020-01-24] MEDS ORDERED: ONDANSETRON HCL 4 MG ORAL DISINTEGRATING TAB PO PRN (16:45)
[2020-01-24 20:00] VITALS: BP 101/63
[2020-01-24 20:30] VITALS: BP 101/63
[2020-01-24] MEDS: ATORVASTATIN 20 MG TAB PO SCH (21:27)
[2020-01-24] MEDS: FINASTERIDE 5 MG TAB PO SCH (21:27)
[2020-01-25] VITALS (7 sets, daily range): BP systolic 107–128; BP diastolic 56–83
[2020-01-25] MEDS: CEFAZOLIN SOD 1 GM/NS 50ML 50 ML IV SCH ×3 (05:34→21:58)
[2020-01-25] MEDS: FISH OIL PO SCH (07:56)
[2020-01-25] MEDS: EPA PO SCH (07:56)
[2020-01-25] MEDS: UBIDECARENONE 100 MG PO SCH (07:56)
[2020-01-25] MEDS: FOLIC ACID 400 MCG PO SCH (07:56)
[2020-01-25] MEDS: DHA PO SCH (07:56)
[2020-01-25] MEDS: LORATADINE 10 MG TAB PO SCH (08:42)
[2020-01-25] MEDS: BUSPIRONE HCL 5 MG TAB PO SCH ×2 (08:42→16:48)
[2020-01-25] MEDS: METFORMIN HCL 500 MG TAB PO SCH ×2 (08:42→16:48)
[2020-01-25] MEDS: DIGOXIN 0.125 MG TAB PO SCH (08:44)
[2020-01-25] MEDS: METOPROLOL SUCCINATE 25 MG TAB XL PO SCH ×2 (08:45→20:58)
[2020-01-25] MEDS: CHOLECALCIFEROL 1,000 UNIT TAB PO SCH (08:45)
[2020-01-25] MEDS: FUROSEMIDE 20 MG TAB PO SCH (08:45)
[2020-01-25] MEDS: ATORVASTATIN 20 MG TAB PO SCH (20:58)
[2020-01-25] MEDS: FINASTERIDE 5 MG TAB PO SCH (20:58)
[2020-01-26] VITALS: BP 105/76
[2020-01-26 04:00] VITALS: BP 116/68
[2020-01-26] MEDS: CEFAZOLIN SOD 1 GM/NS 50ML 50 ML IV SCH (05:21)
[2020-01-26 08:05] VITALS: BP 132/75
[2020-01-26] MEDS: EPA PO SCH (08:21)
[2020-01-26] MEDS: UBIDECARENONE 100 MG PO SCH (08:21)
[2020-01-26] MEDS: DHA PO SCH (08:21)
[2020-01-26] MEDS: FISH OIL PO SCH (08:21)
[2020-01-26] MEDS: CHOLECALCIFEROL 1,000 UNIT TAB PO SCH (08:22)
[2020-01-26] MEDS: FOLIC ACID 400 MCG PO SCH (08:22)
[2020-01-26] MEDS: LORATADINE 10 MG TAB PO SCH (08:22)
[2020-01-26] MEDS: DIGOXIN 0.125 MG TAB PO SCH (08:22)
[2020-01-26] MEDS: METOPROLOL SUCCINATE 25 MG TAB XL PO SCH (08:22)
[2020-01-26] MEDS: FUROSEMIDE 20 MG TAB PO SCH (08:22)
[2020-01-26] MEDS: METFORMIN HCL 500 MG TAB PO SCH (08:22)
[2020-01-26] MEDS: BUSPIRONE HCL 5 MG TAB PO SCH (08:22)
[2020-01-26 08:30] VITALS: BP 132/75
[2020-01-26 12:40] VITALS: BP 108/79
== END 2020-01-26 12:50 | disposition home or self-care (01) | DRG 920 ==
LOC: ER 13:10 → ERHOLD 13:39 → MED/SURG2 18:21
PROVIDERS: ADMIT Family Medicine; ATTEND Family Medicine
PROC: 0JC80ZZ Extirpation of Matter from Abdomen Subcutaneous Tissue and Fascia, Open Approach (ICD-10-PCS; principal; 2020-01-22 13:00)
DX: L76.32 Postprocedural hematoma of skin and subcutaneous tissue following other procedure (principal); F05 Delirium due to known physiological condition; D68.32 Hemorrhagic disorder due to extrinsic circulating anticoagulants; I48.91 Unspecified atrial fibrillation; I10 Essential (primary) hypertension; E11.9 Type 2 diabetes mellitus without complications; I25.2 Old myocardial infarction; I25.10 Atherosclerotic heart disease of native coronary artery without angina pectoris; K76.0 Fatty (change of) liver, not elsewhere classified; Z90.49 Acquired absence of other specified parts of digestive tract; Z95.810 Presence of automatic (implantable) cardiac defibrillator; Z95.5 Presence of coronary angioplasty implant and graft; Z88.5 Allergy status to narcotic agent; Z79.01 Long term (current) use of anticoagulants; E78.5 Hyperlipidemia, unspecified; F03.90 Unspecified dementia, unspecified severity, without behavioral disturbance, psychotic disturbance, mood disturbance, and anxiety; Z11.59 Encounter for screening for other viral diseases
CPT/HCPCS: 36415; 74177; 80048; 80053; 82550; 82553; 82948; 84484; 85014; 85018; 85025; 85610; 85730; 86850; 86900; 86920; 93005; 99284; J0690; J2001; J2405; J3010; J7030; J7050; Q9967; U0002

== ENCOUNTER → 2020-06-30 | Outpatient (CLI) | payer MEDICARE, BC ==
[~2020-06-30] MED LIST changes: +ZYRTEC10 M3
== END ==
LOC: NM 08:07
PROVIDERS: ATTEND Internal Medicine Gastroenterology
DX: R10.33 Periumbilical pain (principal); D50.9 Iron deficiency anemia, unspecified; R14.0 Abdominal distension (gaseous); E11.9 Type 2 diabetes mellitus without complications; K57.30 Diverticulosis of large intestine without perforation or abscess without bleeding; K44.9 Diaphragmatic hernia without obstruction or gangrene; E66.3 Overweight; Z86.010 Personal history of colon polyps
CPT/HCPCS: 78264; A9541

== ENCOUNTER → 2020-07-17 | Day surgery (SDC) | payer MEDICARE, BC ==
[2020-07-14 12:11] LABS: BASOPHILS # (AUTO) 0.1 (0.0-0.1); BASOPHILS % 0.9 % (0.0-1.0); EOSINOPHILS # (AUTO) 0.1 (0.0-0.4); EOSINOPHILS % 2.1 % (0.0-6.0); HEMATOCRIT 37.9 % (38.2-49.6); HEMOGLOBIN 11.7 g/dL (14.0-18.0); LYMPHOCYTES # (AUTO) 0.8 (1.0-3.2); LYMPHOCYTES % 13.9 % (18.0-39.1); MEAN CORPUSCULAR HEMOGLOBIN 26.8 pg (28-32); MEAN CORPUSCULAR HGB CONC 30.9 g/dL (31-35); MEAN CORPUSCULAR VOLUME 86.7 fL (81-99); MONOCYTES # (AUTO) 0.6 (0.2-0.8); MONOCYTES % 9.8 % (4.4-11.3); NEUTROPHILS # (AUTO) 4.1 (2.1-6.9); NEUTROPHILS % 72.9 % (38.7-80.0); PLATELET COUNT 158 x10e3/uL (140-360); RED BLOOD COUNT 4.37 x10e6/uL (4.3-5.7); RED CELL DISTRIBUTION WIDTH 17.4 % (11.7-14.4)
[2020-07-14 12:28] LABS: ANION GAP 13.7 mmol/L (8-16); BLOOD UREA NITROGEN 17 mg/dL (7-26); BUN/CREATININE RATIO 18 (6-25); CALCIUM 9.2 mg/dL (8.4-10.2); CARBON DIOXIDE 27 mmol/L (22-29); CHLORIDE 104 mmol/L (98-107); CREATININE, SERUM 0.94 mg/dL (0.72-1.25); EST GLOMERULAR FILTRATION RATE > 60 ML/MIN (60-); GLUCOSE 80 mg/dL (74-118); POTASSIUM 4.7 mmol/L (3.5-5.1); SODIUM 140 mmol/L (136-145)
[~2020-07-17] MED LIST changes: +BUPIVACAINE 0.25% 30ML SDV ONE; +DEXILANT60 MG PO; +DEXTROSE 5% 250ML 250 ML IV ONE; +ELIQUIS2.5 MG PO; +FENTANYL CITRATE/PF 100MCG/2 ML INJ ONE; +LIDOCAINE HCL 2% LOCAL INJ 5 ML SDV VIAL INJ ONE; +MIDAZOLAM HCL 2 MG/2 ML VIAL ONE; +PROPOFOL IV EMULSION 10 MG/ML 20 ML VIAL ONE
[2020-07-17 15:05] VITALS: BP 142/82
== END | disposition home or self-care (01) ==
LOC: OR 09:31
PROVIDERS: ATTEND Surgery
DX: K40.90 Unilateral inguinal hernia, without obstruction or gangrene, not specified as recurrent (principal); H91.90 Unspecified hearing loss, unspecified ear; E78.5 Hyperlipidemia, unspecified; I25.10 Atherosclerotic heart disease of native coronary artery without angina pectoris; E11.9 Type 2 diabetes mellitus without complications; K21.9 Gastro-esophageal reflux disease without esophagitis; Z88.6 Allergy status to analgesic agent; Z01.810 Encounter for preprocedural cardiovascular examination; Z01.812 Encounter for preprocedural laboratory examination; Z20.822 Contact with and (suspected) exposure to COVID-19; Z79.02 Long term (current) use of antithrombotics/antiplatelets; Z79.84 Long term (current) use of oral hypoglycemic drugs; Z95.0 Presence of cardiac pacemaker
CPT/HCPCS: 36415 ×2; 49505; 80048; 82948; 85025; 88302; 93005; C1781; J2001; J2250; J2704; J3010; J7070; U0002

== ENCOUNTER 2020-07-24 15:56 | Inpatient (IN) | payer MEDICARE, BC ==
[~2020-07-24] VITALS: Ht 188 cm; Wt 91.2 kg
[~2020-07-24 15:56] MED LIST changes: -BUPIVACAINE 0.25% 30ML SDV ONE; -DEXTROSE 5% 250ML 250 ML IV ONE; -FENTANYL CITRATE/PF 100MCG/2 ML INJ ONE; -LIDOCAINE HCL 2% LOCAL INJ 5 ML SDV VIAL INJ ONE; -MIDAZOLAM HCL 2 MG/2 ML VIAL ONE; -PROPOFOL IV EMULSION 10 MG/ML 20 ML VIAL ONE
[2020-07-24] MEDS ORDERED: ONDANSETRON HCL INJ 2MG/ML 2ML 2 MG/ML VIAL IV PRN (16:45)
[2020-07-24] MEDS ORDERED: HYDROCODONE/APAP 7.5MG-325MG 1 EA TAB PO PRN (16:45)
[2020-07-24] MEDS ORDERED: ACETAMINOPHEN 1000 MG/100 ML IV PRN (16:45)
[2020-07-24] MEDS ORDERED: HYDROMORPHONE 1MG/1ML INJ IV PRN (16:45)
[2020-07-24 16:57] VITALS: BP 125/80
[2020-07-24 17:07] VITALS: BP 125/80
[2020-07-24] MEDS: METFORMIN HCL 500 MG TAB PO SCH (17:56)
[2020-07-24] MEDS: PANTOPRAZOLE 40 MG 10ML VIAL IV SCH (17:56)
[2020-07-24] MEDS: BUSPIRONE HCL 5 MG TAB PO SCH (17:56)
[2020-07-24] MEDS: SODIUM CHLORIDE 0.9% 1000ML 1,000 ML IV SCH (17:56)
[2020-07-24] MEDS: METOPROLOL SUCCINATE 25 MG TAB XL PO SCH (17:57)
[2020-07-24] MEDS: CEFTRIAXONE SOD 1 GM in SODIUM CHLORIDE 0.9% 50ML 50 ML IV SCH (17:57)
[2020-07-24] MEDS ORDERED: DEXTROSE 50% SYRINGE 50 ML IV PRN (19:00)
[2020-07-24 20:00] VITALS: BP 117/77
[2020-07-24] MEDS: INSULIN LISPRO 100 UNIT/1 ML 3ML VIAL SQ SCH (20:53)
[2020-07-24 21:55] VITALS: BP 117/77
[2020-07-24] MEDS: ATORVASTATIN 20 MG TAB PO SCH (22:14)
[2020-07-24] MEDS: FINASTERIDE 5 MG TAB PO SCH (22:14)
[2020-07-25] VITALS: BP 132/88
[2020-07-25] MEDS: SODIUM CHLORIDE 0.9% 1000ML 1,000 ML IV SCH ×2 (03:38→13:31)
[2020-07-25 04:00] VITALS: BP 140/94
[2020-07-25 05:03] LABS: BASOPHILS % 0.8 % (0.0-1.0); EOSINOPHILS # (AUTO) 0.1 (0.0-0.4); EOSINOPHILS % 1.2 % (0.0-6.0); HEMOGLOBIN 9.5 g/dL (14.0-18.0); LYMPHOCYTES # (AUTO) 0.6 (1.0-3.2); LYMPHOCYTES % 11.4 % (18.0-39.1); MEAN CORPUSCULAR HEMOGLOBIN 27.1 pg (28-32); MEAN CORPUSCULAR HGB CONC 31.7 g/dL (31-35); MEAN CORPUSCULAR VOLUME 85.7 fL (81-99); MONOCYTES # (AUTO) 0.6 (0.2-0.8); MONOCYTES % 11.2 % (4.4-11.3); NEUTROPHILS # (AUTO) 3.9 (2.1-6.9); NEUTROPHILS % 75.2 % (38.7-80.0); PLATELET COUNT 171 x10e3/uL (140-360); RED CELL DISTRIBUTION WIDTH 17.2 % (11.7-14.4)
[2020-07-25 05:18] LABS: INR 1.38; PROTHROMBIN TIME 17.9 seconds (11.9-14.5)
[2020-07-25 05:19] LABS: PARTIAL THROMBOPLASTIN TIME 46.5 seconds (23.8-35.5)
[2020-07-25 05:24] LABS: ANION GAP 10.6 mmol/L (8-16); BLOOD UREA NITROGEN 13 mg/dL (7-26); BUN/CREATININE RATIO 19 (6-25); CALCIUM 7.9 mg/dL (8.4-10.2); CARBON DIOXIDE 25 mmol/L (22-29); CHLORIDE 107 mmol/L (98-107); EST GLOMERULAR FILTRATION RATE > 60 ML/MIN (60-); GLUCOSE 90 mg/dL (74-118); POTASSIUM 3.6 mmol/L (3.5-5.1); SODIUM 139 mmol/L (136-145)
[2020-07-25] MEDS: INSULIN LISPRO 100 UNIT/1 ML 3ML VIAL SQ SCH ×4 (07:30→20:11)
[2020-07-25] MEDS ORDERED: PANTOPRAZOLE SOD 40 MG TABEC PO SCH (09:00)
[2020-07-25] MEDS: BUSPIRONE HCL 5 MG TAB PO SCH ×2 (09:01→17:23)
[2020-07-25] MEDS: METFORMIN HCL 500 MG TAB PO SCH ×2 (09:01→17:23)
[2020-07-25] MEDS: SPIRONOLACTONE 25 MG TAB PO SCH (09:01)
[2020-07-25] MEDS: FUROSEMIDE 20 MG TAB PO SCH (09:01)
[2020-07-25] MEDS: DIGOXIN 0.125 MG TAB PO SCH (09:01)
[2020-07-25] MEDS: METOPROLOL SUCCINATE 25 MG TAB XL PO SCH ×2 (09:02→17:23)
[2020-07-25 10:07] VITALS: BP 125/85
[2020-07-25 16:00] VITALS: BP 138/73
[2020-07-25] MEDS: PANTOPRAZOLE 40 MG 10ML VIAL IV SCH (17:23)
[2020-07-25] MEDS: CEFTRIAXONE SOD 1 GM in SODIUM CHLORIDE 0.9% 50ML 50 ML IV SCH (17:24)
[2020-07-25 19:36] VITALS: BP 124/75
[2020-07-25] MEDS: ATORVASTATIN 20 MG TAB PO SCH (20:26)
[2020-07-25] MEDS: FINASTERIDE 5 MG TAB PO SCH (20:26)
[2020-07-25 21:05] VITALS: BP 124/75
[2020-07-26] VITALS (7 sets, daily range): BP systolic 121–149; BP diastolic 67–94
[2020-07-26] MEDS: SODIUM CHLORIDE 0.9% 1000ML 1,000 ML IV SCH ×3 (01:33→18:45)
[2020-07-26 06:24] LABS: BASOPHILS # (AUTO) 0.1 (0.0-0.1); BASOPHILS % 1.3 % (0.0-1.0); EOSINOPHILS # (AUTO) 0.1 (0.0-0.4); EOSINOPHILS % 1.1 % (0.0-6.0); HEMATOCRIT 32.1 % (38.2-49.6); LYMPHOCYTES # (AUTO) 0.7 (1.0-3.2); LYMPHOCYTES % 10.8 % (18.0-39.1); MEAN CORPUSCULAR HEMOGLOBIN 27.6 pg (28-32); MEAN CORPUSCULAR HGB CONC 31.2 g/dL (31-35); MEAN CORPUSCULAR VOLUME 88.7 fL (81-99); MONOCYTES # (AUTO) 0.6 (0.2-0.8); NEUTROPHILS # (AUTO) 4.7 (2.1-6.9); NEUTROPHILS % 77.5 % (38.7-80.0); PLATELET COUNT 184 x10e3/uL (140-360); RED BLOOD COUNT 3.62 x10e6/uL (4.3-5.7); RED CELL DISTRIBUTION WIDTH 17.6 % (11.7-14.4)
[2020-07-26 06:35] LABS: INR 1.34; PROTHROMBIN TIME 17.5 seconds (11.9-14.5)
[2020-07-26 06:36] LABS: PARTIAL THROMBOPLASTIN TIME 42.8 seconds (23.8-35.5)
[2020-07-26 07:08] LABS: ANION GAP 11.8 mmol/L (8-16); BLOOD UREA NITROGEN 13 mg/dL (7-26); BUN/CREATININE RATIO 17 (6-25); CALCIUM 8.1 mg/dL (8.4-10.2); CARBON DIOXIDE 24 mmol/L (22-29); CHLORIDE 106 mmol/L (98-107); CREATININE, SERUM 0.75 mg/dL (0.72-1.25); EST GLOMERULAR FILTRATION RATE > 60 ML/MIN (60-); GLUCOSE 91 mg/dL (74-118); POTASSIUM 3.8 mmol/L (3.5-5.1); SODIUM 138 mmol/L (136-145)
[2020-07-26] MEDS: INSULIN LISPRO 100 UNIT/1 ML 3ML VIAL SQ SCH ×4 (07:30→20:54)
[2020-07-26] MEDS: METFORMIN HCL 500 MG TAB PO SCH ×2 (08:00→15:25)
[2020-07-26] MEDS: BUSPIRONE HCL 5 MG TAB PO SCH ×2 (09:00→15:25)
[2020-07-26] MEDS: METOPROLOL SUCCINATE 25 MG TAB XL PO SCH ×2 (09:00→15:25)
[2020-07-26] MEDS: FUROSEMIDE 20 MG TAB PO SCH (09:00)
[2020-07-26] MEDS: SPIRONOLACTONE 25 MG TAB PO SCH (09:00)
[2020-07-26] MEDS ORDERED: DEXTROSE 5% 250ML 250 ML IV ONE (13:07)
[2020-07-26] MEDS ORDERED: ACETAMINOPHEN 1000 MG/100 ML IV PRN (14:30)
[2020-07-26] MEDS: DIGOXIN 0.125 MG TAB PO SCH (15:24)
[2020-07-26] MEDS: PANTOPRAZOLE 40 MG 10ML VIAL IV SCH (15:25)
[2020-07-26] MEDS: CEFTRIAXONE SOD 1 GM in SODIUM CHLORIDE 0.9% 50ML 50 ML IV SCH (17:13)
[2020-07-26] MEDS: FINASTERIDE 5 MG TAB PO SCH (20:54)
[2020-07-26] MEDS: ATORVASTATIN 20 MG TAB PO SCH (20:54)
[2020-07-27] VITALS: BP 125/56
[2020-07-27] MEDS: SODIUM CHLORIDE 0.9% 1000ML 1,000 ML IV SCH ×2 (01:29→14:45)
[2020-07-27 04:00] VITALS: BP 112/62
[2020-07-27 05:17] LABS: BASOPHILS % 0.3 % (0.0-1.0); HEMATOCRIT 30.4 % (38.2-49.6); HEMOGLOBIN 9.4 g/dL (14.0-18.0); LYMPHOCYTES # (AUTO) 0.4 (1.0-3.2); MEAN CORPUSCULAR HEMOGLOBIN 26.8 pg (28-32); MEAN CORPUSCULAR HGB CONC 30.9 g/dL (31-35); MEAN CORPUSCULAR VOLUME 86.6 fL (81-99); MONOCYTES # (AUTO) 0.5 (0.2-0.8); MONOCYTES % 6.8 % (4.4-11.3); NEUTROPHILS # (AUTO) 6.1 (2.1-6.9); NEUTROPHILS % 86.6 % (38.7-80.0); PLATELET COUNT 203 x10e3/uL (140-360); RED BLOOD COUNT 3.51 x10e6/uL (4.3-5.7); RED CELL DISTRIBUTION WIDTH 17.5 % (11.7-14.4)
[2020-07-27 05:41] LABS: BLOOD UREA NITROGEN 16 mg/dL (7-26); BUN/CREATININE RATIO 21 (6-25); CALCIUM 7.9 mg/dL (8.4-10.2); CARBON DIOXIDE 23 mmol/L (22-29); CHLORIDE 108 mmol/L (98-107); CREATININE, SERUM 0.75 mg/dL (0.72-1.25); EST GLOMERULAR FILTRATION RATE > 60 ML/MIN (60-); GLUCOSE 129 mg/dL (74-118); SODIUM 141 mmol/L (136-145)
[2020-07-27] MEDS: INSULIN LISPRO 100 UNIT/1 ML 3ML VIAL SQ SCH ×2 (07:30→11:30)
[2020-07-27 08:07] VITALS: BP 125/86
[2020-07-27] MEDS: METFORMIN HCL 500 MG TAB PO SCH (09:00)
[2020-07-27 09:16] VITALS: BP 125/86
[2020-07-27] MEDS: DIGOXIN 0.125 MG TAB PO SCH (10:00)
[2020-07-27] MEDS: BUSPIRONE HCL 5 MG TAB PO SCH (10:00)
[2020-07-27] MEDS: FUROSEMIDE 20 MG TAB PO SCH (10:00)
[2020-07-27] MEDS: SPIRONOLACTONE 25 MG TAB PO SCH (10:00)
[2020-07-27] MEDS: METOPROLOL SUCCINATE 25 MG TAB XL PO SCH (10:00)
[2020-07-27 12:12] VITALS: BP 123/62
[2020-07-27] MEDS ORDERED: ONDANSETRON HCL 4 MG ORAL DISINTEGRATING TAB PO PRN (13:15)
== END 2020-07-27 15:05 | disposition home or self-care (01) | DRG 730 ==
LOC: MED/SURG 15:56 → OBSVTOIN 07-25 10:20
PROVIDERS: ADMIT Surgery; ATTEND Surgery
PROC: 0JC Subcutaneous Tissue and Fascia, Extirpation (ICD-10-PCS; principal; 2020-07-26 13:19)
DX: N50.1 Vascular disorders of male genital organs (principal); Z20.822 Contact with and (suspected) exposure to COVID-19; I25.10 Atherosclerotic heart disease of native coronary artery without angina pectoris; E11.9 Type 2 diabetes mellitus without complications
CPT/HCPCS: 36415; 80048; 82948; 85025; 85610; 85730; G0378; J0696; J7030; J7070

== ENCOUNTER 2021-01-09 15:17 | Emergency (ER) | payer MEDICARE, BC ==
[~2021-01-09] VITALS: Ht 188 cm; Wt 91.2 kg
== END 2021-01-09 15:55 | disposition home or self-care (01) ==
LOC: ER 15:42
DX: F32.9 Major depressive disorder, single episode, unspecified (principal)
CPT/HCPCS: 99282